=== PATIENT | female | born 1995 | race Caucasian/White ===

== ENCOUNTER 2018-01-23 14:49 | Emergency (ER) | payer MEDICAID, SELFPAY ==
[2018-01-23 14:55] VITALS: BP 127/90; PULSE 145; RESP 18; TEMP 38.1; O2SAT 96
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
[2018-01-23] MEDS: Normal Saline 1,000 ML 1000 ML IV (15:19)
[2018-01-23 15:36] LABS: Absolute Basophil Count 0.03 k/cumm (0.0-0.2); Absolute Eosinophil Count 0.01 k/cumm (0.0-0.7); Absolute Lymphocyte Count 1.58 k/cumm (1.2-3.4); Absolute Monocyte Count 0.49 k/cumm (0.11-0.7); Basophils % 0.5; Eosinophils % 0.2; HCT 34.4 % (36.0-46.0); HGB 11.3 g/dL (12.0-15.5); Lymphocytes % 27.2; Mean Corp. HGB Concentration 32.8 g/dL (32.0-36.0); Mean Corpuscular Hemoglobin 29.9 pg (27.0-33.0); Mean Platelet Volume 8.8 fL (8.0-11.0); Monocytes % 8.4; Neutrophils % 63.7; Platelet Count 306 x1000/uL (130-400); RBC 3.78 m/cumm (4.00-5.20); RBC Distribution Width 13.6 % (11.7-14.6); White Blood Cell Count 5.81 k/cumm (4.4-10.8)
[2018-01-23 15:47] LABS: ALT 19 U/L (12-78); AST 23 U/L (15-37); Albumin 3.3 g/dL (3.4-5.0); Alkaline Phosphatase 62 U/L (46-116); Anion Gap 9.5 mmol/L (3-11); BUN 2 mg/dL (7-18); Bilirubin, Total 0.2 mg/dL (0.2-1.0); CO2 27.5 mmol/L (21.0-32.0); CREATININE 1.05 mg/dL (0.55-1.02); Calcium 7.7 mg/dL (8.5-10.1); Chloride 105 mmol/L (98-107); ETHANOL BLOOD 205.2 mg/dL (<3); Glucose 101 mg/dL (70-100); Potassium 3.4 mmol/L (3.5-5.1); Sodium 142 mmol/L (136-145); Total Protein 6.7 g/dL (6.4-8.2)
[2018-01-23 15:55] LABS: HCG Qual (Serum) Negative
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
[2018-01-23] MEDS: Ketorolac 30 MG/ML VIAL IVP (16:55)
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
== END 2018-01-23 18:35 | disposition home or self-care (01) ==
PROVIDERS: Nurse Practitioner Family; Emergency Provider Physician Assistant; PCP Nurse Practitioner Family
DX: S00.12XA Contusion of left eyelid and periocular area, initial encounter (principal); S06.0X0A Concussion without loss of consciousness, initial encounter; M54.2 Cervicalgia; F10.120 Alcohol abuse with intoxication, uncomplicated; Y04.8XXA Assault by other bodily force, initial encounter
CPT/HCPCS: 36415; 80053; 96361; 96374; 99284; 70450; 70486; 72072; 72125; 80320; 84703; 85025; J1885; L0172

== ENCOUNTER 2018-03-22 15:41 | Emergency (ER) | payer MEDICAID, SELFPAY ==
[2018-03-22 15:53] VITALS: BP 138/70; PULSE 114; RESP 18; TEMP 36.7; O2SAT 99
[2018-03-22 16:18] LABS: Abs Immature Grans 0.02 k/cumm (0.0-0.09); Absolute Eosinophil Count 0.05 k/cumm (0.0-0.7); Absolute Lymphocyte Count 1.71 k/cumm (1.2-3.4); Absolute Monocyte Count 0.82 k/cumm (0.11-0.7); Absolute Neutrophil Count 8.79 k/cumm (1.2-6.7); Basophils % 0.3; Eosinophils % 0.4; HCT 40.9 % (36.0-46.0); HGB 13.6 g/dL (12.0-15.5); Immature Grans % 0.2; Mean Corp. HGB Concentration 33.3 g/dL (32.0-36.0); Mean Corpuscular Hemoglobin 29.2 pg (27.0-33.0); Mean Corpuscular Volume 87.8 fL (80-95); Mean Platelet Volume 9.7 fL (8.0-11.0); Monocytes % 7.2; Neutrophils % 76.9; Platelet Count 477 x1000/uL (130-400); RBC 4.66 m/cumm (4.00-5.20); RBC Distribution Width 13.5 % (11.7-14.6); White Blood Cell Count 11.43 k/cumm (4.4-10.8)
[2018-03-22 16:25] LABS: Absolute Basophil Count 0.03 k/cumm (0.0-0.2)
[2018-03-22 16:33] LABS: ALT 31 U/L (12-78); AST 38 U/L (15-37); Albumin 3.9 g/dL (3.4-5.0); Alkaline Phosphatase 87 U/L (46-116); Anion Gap 13.6 mmol/L (3-11); BUN 4 mg/dL (7-18); Bilirubin, Total 0.4 mg/dL (0.2-1.0); CO2 26.4 mmol/L (21.0-32.0); CREATININE 1.07 mg/dL (0.55-1.02); Calcium 8.9 mg/dL (8.5-10.1); Chloride 100 mmol/L (98-107); Glucose 107 mg/dL (70-100); Lipase 178 U/L (73-393); Magnesium 1.5 mg/dL (1.8-2.4); Potassium 3.3 mmol/L (3.5-5.1); Sodium 140 mmol/L (136-145); Total Protein 8.1 g/dL (6.4-8.2)
[2018-03-22] MEDS: MAGNESIUM SULFATE 1 GM/100 ML BAG 25 GM (17:42)
[2018-03-22 17:47] LABS: Bilirubin Negative (Negative); Blood Negative (Negative); Clarity Clear; Glucose Negative (Negative); Ketones Negative (Negative); Leukocyte Esterase Negative (Negative); Nitrite Negative (Negative); Urobilinogen 0.2 EU/dL (Up TO 0.2); pH 8.5 (5-8)
[2018-03-22 18:12] LABS: Bacteria Negative HPF (Negative); C & S Indicated? No; Casts Negative LPF (Negative); Crystals Negative HPF (Negative); Epithelial Cells Moderate HPF (Negative); Mucus Negative (Negative); Other Cells Negative (Negative); RBC Negative (0-2); WBC 0-2 HPF (0-5)
[2018-03-22 18:42] VITALS: BP 118/70; PULSE 83
[2018-03-22] MEDS: Ondansetron O.D.T. 4 MG TABEF 8 MG (18:58)
[2018-03-22] MEDS: Potassium Chloride 20 MEQ TABCR (18:59)
[2018-03-22] MEDS: Magnesium Oxide 400 MG TAB 800 MG (18:59)
--- NOTE | 2018-03-22 20:43 | DI.RAD_ITS ---
SYMPTOM/DIAGNOSIS: ABD PAIN ABDOMEN AND PELVIC CT: A noncontrast exam was performed. The lung bases are clear. The heart size is normal. The liver, gallbladder, spleen, pancreas, kidneys and adrenals are unremarkable. The appendix appears normal. A dominant follicle is seen on the right ovary. There is a trace amount of free fluid, likely physiologic. No bowel dilatation or inflammatory change is seen. There is a normal quantity of stool. IMPRESSION: Negative CT of the abdomen and pelvis.
[2018-03-22 22:03] VITALS: BP 112/78; PULSE 88; RESP 18; TEMP 36.8; O2SAT 98
--- NOTE | 2018-03-23 13:06 | W.ED.FU ---
Follow Up Plan: Please see paper charting for down time document
== END 2018-03-22 22:05 ==
PROVIDERS: Emergency Provider Nurse Practitioner Family; PCP Pediatrics
DX: R10.31 Right lower quadrant pain (principal); R11.2 Nausea with vomiting, unspecified; E87.6 Hypokalemia; E83.42 Hypomagnesemia
CPT/HCPCS: 36415; 80053; 81025; 83690; 96374; 96375; 99284; 74176; 81003; 81015; 83735; 85025; J3475

== ENCOUNTER 2018-06-02 19:19 | Emergency (ER) | payer MEDICAID, SELFPAY ==
[2018-06-02 19:29] VITALS: BP 123/79; PULSE 103; RESP 18; TEMP 37.1; O2SAT 99
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
[2018-06-02] MEDS: Ondansetron O.D.T. 4 MG TABEF (20:46)
[2018-06-02] MEDS: Sulfameth/Trimeth DS TAB 1 TAB PO (20:46)
== END 2018-06-02 20:53 | disposition home or self-care (01) ==
PROVIDERS: Emergency Provider Emergency Medicine; PCP Family Medicine
DX: L02.211 Cutaneous abscess of abdominal wall (principal)
CPT/HCPCS: 10060

== ENCOUNTER 2018-06-19 11:30 | Emergency (ER) | payer MEDICAID, SELFPAY ==
[2018-06-19 11:40] VITALS: BP 123/81; PULSE 100; RESP 16; TEMP 36.7; O2SAT 98
--- NOTE | 2018-06-19 12:06 | ED.GENADUL_ITS ---
Discharge Plan Disposition Patient Disposition: HOME Condition: Improving Discharge Details Chief Complaint: Abd Prob Clinical Impression: Gastroenteritis Primary Care Provider: Grace Hendricks ED Provider: Travis Quiros Home Meds and New Rx's Prescriptions: Continued methadone [Methadone Intensol] 10 mg/mL Concentrate 20 mg PO DAILY RF: 0 Discharge Instructions Instructions: Gastroenteritis (ED) Additional Instructions: Home to rest today. Your testing was negative. Small, frequent sips of fluids to maintain hydration. Follow-up with regular doctor if not improving in 2 days time Medical Decision Making 23-year-old female presents with 3 days of intermittent episodes of nausea and vomiting with lower abdominal cramping. She questions whether she may be states she has a negative urinalysis in the past with positive serum testing. She arrives with no fever, borderline tachycardia, dehydrated in appearance. Differential diagnosis includes hyperemesis of first trimester , gastroenteritis, dehydration. An IV access established, given fluid bolus and antiemetic. Screening labs obtained and are reassuring without any significant abnormalities and negative test. Following fluids and antiemetic, patient improved. She likely does have a gastroenteritis but is stable for outpatient management. She has pre-standing antiemetic prescribed Lab Data Lab results reviewed: Yes I reviewed the patient's lab results. Laboratory Results - last 24 hr 06/19/18 06/19/18 06/19/18 11:57 12:24 12:24 WBC 7.14 RBC 4.31 Hgb 11.6 L Hct 36.9 MCV 85.6 MCH 26.9 L MCHC 31.4 L RDW 14.3 Plt Count 315 MPV 10.2 Immature Gran % 0.1 Neutrophils % 70.9 Lymphocytes % 19.5 Monocytes % 7.6 Eosinophils % 1.5 Basophils % 0.4 Absolute Neutrophils 5.06 Absolute Lymphocytes 1.39 Absolute Monocytes 0.54 Absolute Eosinophils 0.11 Absolute Basophils 0.03 Sodium 142 Potassium 3.6 Chloride 104 Carbon Dioxide 29.3 Anion Gap 8.7 BUN 3 L Creatinine 1.00 Estimated GFR/1.73 m2 >= 60.00 Glucose 85 Calcium 8.9 Magnesium 1.6 L Total Bilirubin 0.3 AST 18 ALT 19 Alkaline Phosphatase 47 Total Protein 7.5 Albumin 4.0 Serum HCG, Qual Urine Color Yellow Urine Clarity Clear Urine pH 7.0 Ur Specific [place] 1.020 Urine Protein Negative Urine Ketones Negative Urine Blood Negative Urine Nitrite Negative Urine Bilirubin Negative Urine Urobilinogen 0.2 Ur Leukocyte Esterase Negative Urine Glucose Negative 06/19/18 12:24 WBC RBC Hgb Hct MCV MCH MCHC RDW Plt Count MPV Immature Gran % Neutrophils % Lymphocytes % Monocytes % Eosinophils % Basophils % Absolute Neutrophils Absolute Lymphocytes Absolute Monocytes Absolute Eosinophils Absolute Basophils Sodium Potassium Chloride Carbon Dioxide Anion Gap BUN Creatinine Estimated GFR/1.73 m2 Glucose Calcium Magnesium Total Bilirubin AST ALT Alkaline Phosphatase Total Protein Albumin Serum HCG, Qual Negative Urine Color Urine Clarity Urine pH Ur Specific [place] Urine Protein Urine Ketones Urine Blood Urine Nitrite Urine Bilirubin Urine Urobilinogen Ur Leukocyte Esterase Urine Glucose HPI General Mode of arrival: ambulatory . Date/Time Provider Initiated Documentation: 06/19/18 11:49 . Limitations to Documentation: no limitations . Information obtained by: patient . History of Present Illness 23 year old F presents to the emergency department with the chief complaint of Lower abdominal cramping and vomiting over 3 days time. No diarrhea, described as moderate, Quality is described as aching and dull, and is localized to the abdomen. Patient reports no radiation. Patient started experiencing this day(s) and it has been intermittent. No relieving factors improve symptom(s), Eating worsens symptoms . Patient notes loss of appetite and nausea/vomiting; denies diaphoresis and fever/chills. Patient did receive the following treatments prior to arrival, none Related Data Home Medications Medication Instructions Recorded Confirmed methadone [Methadone Intensol] 20 mg PO DAILY 06/19/18 06/19/18 Allergies Allergy/AdvReac Type Severity Reaction Status Date / Time metronidazole [From Flagyl] AdvReac Mild Nausea Unverified 06/02/18 19:32 General Stated Complaint: Abd Prob MACY: 3 Review of Systems Review of Systems 6 systems reviewed and otherwise negative. Patient states last menstrual period approximately 1 month ago [facility] Medical History Anxiety Depression Homeless family Vaginitis Family History Mother Substance abuse Mental disorder Father Alcohol abuse Sister Mental disorder Sister No problems noted. Brother No problems noted. Brother No problems noted. Social History Smoking/Tobacco Use Status: Never Exam Narrative Exam Narrative: GEN: awake, alert, oriented 3. Pleasant, well groomed, interactive. HEAD: Normocephalic, atraumatic ENT: Mucous membranes dry, oropharynx unremarkable, External ear exam unremarkable EYES: PERRL, EOMI NECK: Full ROM, no KELLIE, no menigismus CHEST/RESP: Nontender, clear to auscultation bilateral, no wheeze/rhonchi/rales CARDIOVASCULAR: Borderline tachycardia, no murmur, rub gina. 2+ Rad pulse bilateral ABDOMEN: Soft, nontender, no mass. +Bowel sounds EXT: Full ROM, no edema, no rash Neuro: Grossly normal neurologic exam, conversant, interactive. Psych: Speech fluent, thoughts congruent, affect normal Course Vital Signs Temperature 36.7 C 06/19/18 11:40 Pulse 100 H 06/19/18 11:40 Respiratory Rate 16 06/19/18 11:40 Blood Pressure 123/81 06/19/18 11:40 Pulse Oximetry 98 06/19/18 11:40 Temperature 36.7 C 06/19/18 11:40 Temperature Source Skin 06/19/18 11:40 Pulse 100 H 06/19/18 11:40 Respiratory Rate 16 06/19/18 11:40 Respiratory Effort 06/19/18 11:44 Blood Pressure 123/81 06/19/18 11:40 Blood Pressure Position Sitting 06/19/18 11:40 Pulse Oximetry 98 06/19/18 11:40 Pain Level 4 06/19/18 11:40 Lab/Test Results Lab/Test Results: POC- Test(urine) Negative
[2018-06-19 12:25] LABS: Bilirubin Negative (Negative); Blood Negative (Negative); Clarity Clear; Glucose Negative (Negative); Ketones Negative (Negative); Leukocyte Esterase Negative (Negative); Nitrite Negative (Negative); Urobilinogen 0.2 EU/dL (Up TO 0.2)
[2018-06-19] MEDS: Normal Saline 1,000 ML 1000 ML IV (12:30)
[2018-06-19] MEDS: Normal Saline Flush 10 ML SYR IVP (12:31)
[2018-06-19 12:35] LABS: Abs Immature Grans 0.01 k/cumm (0.0-0.09); Absolute Basophil Count 0.03 k/cumm (0.0-0.2); Absolute Eosinophil Count 0.11 k/cumm (0.0-0.7); Absolute Lymphocyte Count 1.39 k/cumm (1.2-3.4); Absolute Monocyte Count 0.54 k/cumm (0.11-0.7); Absolute Neutrophil Count 5.06 k/cumm (1.2-6.7); Basophils % 0.4; Eosinophils % 1.5; HCT 36.9 % (36.0-46.0); HGB 11.6 g/dL (12.0-15.5); Immature Grans % 0.1; Lymphocytes % 19.5; Mean Corp. HGB Concentration 31.4 g/dL (32.0-36.0); Mean Corpuscular Hemoglobin 26.9 pg (27.0-33.0); Mean Corpuscular Volume 85.6 fL (80-95); Mean Platelet Volume 10.2 fL (8.0-11.0); Monocytes % 7.6; Neutrophils % 70.9; Platelet Count 315 x1000/uL (130-400); RBC 4.31 m/cumm (4.00-5.20); RBC Distribution Width 14.3 % (11.7-14.6); White Blood Cell Count 7.14 k/cumm (4.4-10.8)
[2018-06-19 13:06] LABS: HCG Qual (Serum) Negative
[2018-06-19 13:08] LABS: ALT 19 U/L (12-78); AST 18 U/L (15-37); Alkaline Phosphatase 47 U/L (46-116); Anion Gap 8.7 mmol/L (3-11); BUN 3 mg/dL (7-18); Bilirubin, Total 0.3 mg/dL (0.2-1.0); CO2 29.3 mmol/L (21.0-32.0); Calcium 8.9 mg/dL (8.5-10.1); Chloride 104 mmol/L (98-107); Glucose 85 mg/dL (70-100); Magnesium 1.6 mg/dL (1.8-2.4); Potassium 3.6 mmol/L (3.5-5.1); Sodium 142 mmol/L (136-145); Total Protein 7.5 g/dL (6.4-8.2)
[2018-06-19 14:04] VITALS: BP 116/70; PULSE 82; RESP 15; TEMP 36.7; O2SAT 98
== END 2018-06-19 14:06 | disposition home or self-care (01) ==
PROVIDERS: Emergency Provider Emergency Medicine; PCP Family Medicine
DX: K52.9 Noninfective gastroenteritis and colitis, unspecified (principal)
CPT/HCPCS: 36415; 80053; 81025; 96361; 96365; 99284; 81003; 83735; 84703; 85025; 99283

== ENCOUNTER 2018-10-22 09:17 | Emergency (ER) | payer MEDICAID, SELFPAY ==
[2018-10-22 09:29] VITALS: BP 118/67; PULSE 106; RESP 16; TEMP 36.9; O2SAT 100
[2018-10-22 09:30] LABS: Bilirubin Negative (Negative); Blood Negative (Negative); Clarity Cloudy; Glucose Negative (Negative); Ketones Negative (Negative); Leukocyte Esterase Small (Negative); Nitrite Positive (Negative); Specific Gravity 1.015 (1.005-1.025); Urobilinogen 0.2 EU/dL (Up TO 0.2); pH 7.5 (5-8)
[2018-10-22 09:39] LABS: Bacteria Many HPF (Negative); C & S Indicated? No/Sq. Contamination; Epithelial Cells Many HPF (Negative); WBC >50 HPF (0-5)
--- NOTE | 2018-10-22 10:12 | W.ED.GENAD ---
Discharge Plan Disposition Patient Disposition: HOME Condition: Good Discharge Details Chief Complaint: Urinary Clinical Impression: Urinary tract infection Primary Care Provider: Grace Hendricks ED Provider: Jaime Lagos Home Meds and New Rx's Prescriptions: No Action methadone [Methadone Intensol] 10 mg/mL Concentrate 20 mg PO DAILY RF: 0 Discharge Instructions Additional Instructions: Please take your medication as prescribed. 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 Please return immediately to the emergency department for fever chills increasing pain back pain or other concern. Please follow-up with the substance abuse clinic for consideration of medication assisted therapy for your heroin use. Medical Decision Making 23-year-old female with urinary tract infection no vaginal symptoms no systemic symptoms no CVAT or concern for sending her pyelonephritis. Keflex twice daily for 5 days follow-up with VISUAL MERCHANDISE MANAGER for routine gynecologic care as discussed follow-up with clinic consideration of medication assisted therapy for your heroin abuse. Turn to the emergency department immediately for shortness of breath chest pain fever chills increasing pain vaginal discharge or other concern. HPI 23-year-old female 24-hour dysuria burning frequency and mild suprapubic tenderness. No back pain no fever chills no vaginal discharge no dyspareunia no high risk behavior no history of sexually transmitted disease past medical history of heroin abuse smokes denies IVDU patient working on Suboxone treatment through the local clinic no shortness of breath chest pain nausea vomiting diarrhea weight loss weight gain or other complaints. LMP 3 weeks ago normal. General Date/Time Provider Initiated Documentation: 10/22/18 10:12. Related Data Home Medications Medication Instructions Recorded Confirmed methadone [Methadone Intensol] 20 mg PO DAILY 06/19/18 06/19/18 Allergies Allergy/AdvReac Type Severity Reaction Status Date / Time metronidazole [From Flagyl] AdvReac Mild Nausea Unverified 10/22/18 09:31 General Stated Complaint: Urinary MACY: 4 Review of Systems Review of Systems All systems reviewed & are unremarkable except as noted in HPI and below PFSH Social History Smoking/Tobacco Use Status: Never Drug use: Daily Substance use type: heroin Details: has not had it in 2 days, is withdrawing-starting to feel this. Do you feel safe in your relationship?: Yes Exam Narrative Exam Narrative: Pulse oximetry reviewed by me and is normal [] Constitutional: Pt is in no acute distress. she is well appearing. she oriented to person, place, and time. Eyes: conjunctivae are normal. Pupils are equal, round, and reactive to light. No scleral icterus. extraocular muscles are intact Ears/Nose/Mouth/Throat: mucus membranes are moist. Musculoskeletal: neck is supple. normal range of motion in all extremities. Cardiovascular: Normal rate and rhythm. No lower extremity edema [] Respiratory: effort is normal . pt exhibits no stridor or respiratory distress. [] GastrointestinaI: abdomen soft, +BS, nontender, -rebound, -guarding. Neurological: alert and oriented to person, place, and time. he has normal strength, no tremor. Skin: Skin is warm and dry. he is not diaphoretic. Distal perfusion in tact, warm extremities, cap refill ? 2 seconds. Hem/Lymph/Imm: No cervical LAD, no goiter, no conjunctival pallor Psych: normal mood and affect. behavior is normal Triage and nurse notes reviewed.[] Course Vital Signs Temperature 36.9 C 10/22/18 09:29 Pulse 106 H 10/22/18 09:29 Respiratory Rate 16 10/22/18 09:29 Blood Pressure 118/67 10/22/18 09:29 Pulse Oximetry 100 10/22/18 09:29 Temperature 36.9 C 10/22/18 09:29 Temperature Source Skin 10/22/18 09:29 Pulse 106 H 10/22/18 09:29 Respiratory Rate 16 10/22/18 09:29 Respiratory Effort Non-Labored 10/22/18 09:29 Blood Pressure 118/67 10/22/18 09:29 Blood Pressure Position Sitting 10/22/18 09:29 Pulse Oximetry 100 10/22/18 09:29 Oxygen Delivery Method Room Air 10/22/18 09:29 Oxygen Flow Rate 0 10/22/18 09:29 Pain Level 9 10/22/18 09:32 Lab/Test Results Lab/Test Results: Laboratory Tests Range/Units 10/22/18 09:25 Urine Color (Yellow) Yellow Urine Clarity Cloudy Urine pH (5-8) 7.5 Ur Specific [place] (1.005-1.025) 1.015 Urine Protein (Negative) mg/dL 30 H Urine Ketones (Negative) mg/dL Negative Urine Blood (Negative) Negative Urine Nitrite (Negative) Positive H Urine Bilirubin (Negative) Negative Urine Urobilinogen (Up TO 0.2) EU/dL 0.2 Ur Leukocyte Esterase (Negative) Small H Urine RBC Not Applicable Urine WBC (0-5) HPF >50 Ur Epithelial Cells (Negative) HPF Many Urine Crystals Not Applicable Urine Bacteria (Negative) HPF Many Urine Mucus Not Applicable Ur Culture Indicated? No/sq. contamination Urine Glucose (Negative) mg/dL Negative POC- Test(urine) Negative
--- NOTE | 2018-10-22 10:17 | ED.GENADUL_ITS ---
Discharge Plan Disposition Patient Disposition: HOME Condition: Good Discharge Details Chief Complaint: Urinary Clinical Impression: Urinary tract infection Primary Care Provider: Grace Hendricks ED Provider: Jaime Lagos Home Meds and New Rx's Prescriptions: No Action methadone [Methadone Intensol] 10 mg/mL Concentrate 20 mg PO DAILY RF: 0 Discharge Instructions Additional Instructions: Please take your medication as prescribed. 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 Please return immediately to the emergency department for fever chills increasing pain back pain or other concern. Please follow-up with the substance abuse clinic for consideration of medication assisted therapy for your heroin use. Medical Decision Making 23-year-old female with urinary tract infection no vaginal symptoms no systemic symptoms no CVAT or concern for sending her pyelonephritis. Keflex twice daily for 5 days follow-up with FINGERPRINT TECHNICIAN for routine gynecologic care as discussed follow- up with clinic consideration of medication assisted therapy for your heroin abuse. Turn to the emergency department immediately for shortness of breath chest pain fever chills increasing pain vaginal discharge or other concern. HPI 23-year-old female 24-hour dysuria burning frequency and mild suprapubic tenderness. No back pain no fever chills no vaginal discharge no dyspareunia no high risk behavior no history of sexually transmitted disease past medical his tory of heroin abuse smokes denies IVDU patient working on Suboxone treatment through the local clinic no shortness of breath chest pain nausea vomiting diarrhea weight loss weight gain or other complaints. LMP 3 weeks ago normal. General Date/Time Provider Initiated Documentation: 10/22/18 10:12 . Related Data Home Medications Medication Instructions Recorded Confirmed methadone [Methadone Intensol] 20 mg PO DAILY 06/19/18 06/19/18 Allergies Allergy/AdvReac Type Severity Reaction Status Date / Time metronidazole [From Flagyl] AdvReac Mild Nausea Unverified 10/22/18 09:31 General Stated Complaint: Urinary MACY: 4 Review of Systems Review of Systems All systems reviewed & are unremarkable except as noted in HPI and below PFSH Social History Smoking/Tobacco Use Status: Never Drug use: Daily Substance use type: heroin Details: has not had it in 2 days, is withdrawing-starting to feel this. Do you feel safe in your relationship?: Yes Exam Narrative Exam Narrative: Pulse oximetry reviewed by me and is normal [] Constitutional: Pt is in no acute distress. she is well appearing. she oriented to person, place, and time. Eyes: conjunctivae are normal. Pupils are equal, round, and reactive to light. No scleral icterus. extraocular muscles are intact Ears/Nose/Mouth/Throat: mucus membranes are moist. Musculoskeletal: neck is supple. normal range of motion in all extremities. Cardiovascular: Normal rate and rhythm. No lower extremity edema [] Respiratory: effort is normal . pt exhibits no stridor or respiratory distress. [] GastrointestinaI: abdomen soft, +BS, nontender, -rebound, -guarding. Neurological: alert and oriented to person, place, and time. he has normal strength, no tremor. Skin: Skin is warm and dry. he is not diaphoretic. Distal perfusion in tact, warm extremities, cap refill ? 2 seconds. Hem/Lymph/Imm: No cervical LAD, no goiter, no conjunctival pallor Psych: normal mood and affect. behavior is normal Triage and nurse notes reviewed.[] Course Vital Signs Temperature 36.9 C 10/22/18 09:29 Pulse 106 H 10/22/18 09:29 Respiratory Rate 16 10/22/18 09:29 Blood Pressure 118/67 10/22/18 09:29 Pulse Oximetry 100 10/22/18 09:29 Temperature 36.9 C 10/22/18 09:29 Temperature Source Skin 10/22/18 09:29 Pulse 106 H 10/22/18 09:29 Respiratory Rate 16 10/22/18 09:29 Respiratory Effort Non-Labored 10/22/18 09:29 Blood Pressure 118/67 10/22/18 09:29 Blood Pressure Position Sitting 10/22/18 09:29 Pulse Oximetry 100 10/22/18 09:29 Oxygen Delivery Method Room Air 10/22/18 09:29 Oxygen Flow Rate 0 10/22/18 09:29 Pain Level 9 10/22/18 09:32 Lab/Test Results Lab/Test Results: Laboratory Tests Range/Units 10/22/18 09:25 Urine Color (Yellow) Yellow Urine Clarity Cloudy Urine pH (5-8) 7.5 Ur Specific [place] (1.005-1.025) 1.015 Urine Protein (Negative) mg/dL 30 H Urine Ketones (Negative) mg/dL Negative Urine Blood (Negative) Negative Urine Nitrite (Negative) Positive H Urine Bilirubin (Negative) Negative Urine Urobilinogen (Up TO 0.2) EU/dL 0.2 Ur Leukocyte Esterase (Negative) Small H Urine RBC Not Applicable Urine WBC (0-5) HPF >50 Ur Epithelial Cells (Negative) HPF Many Urine Crystals Not Applicable Urine Bacteria (Negative) HPF Many Urine Mucus Not Applicable Ur Culture Indicated? No/sq. contamination Urine Glucose (Negative) mg/dL Negative POC- Test(urine) Negative
== END 2018-10-22 10:23 | disposition home or self-care (01) ==
PROVIDERS: Emergency Provider Emergency Medicine; PCP Family Medicine
DX: N39.0 Urinary tract infection, site not specified (principal); F11.10 Opioid abuse, uncomplicated
CPT/HCPCS: 81025; 99283; 81003; 81015

== ENCOUNTER 2019-04-05 07:17 | Emergency (ER) | payer MEDICAID, SELFPAY ==
[2019-04-05 07:19] VITALS: BP 140/94; PULSE 115; RESP 16; TEMP 36.6; O2SAT 100
--- NOTE | 2019-04-05 07:49 | DI.RAD_ITS ---
EXAM: XR ANKLE LT COMPLETE CLINICAL HISTORY: left ankle pain and swelling TECHNIQUE: COMPARISON: No exams were available for comparison FINDINGS: Three views were obtained. The ankle mortise is well maintained. No evidence of fracture. IMPRESSION:
--- NOTE | 2019-04-05 07:51 | ED.GENADUL_ITS ---
Discharge Plan Disposition Patient Disposition: HOME Condition: Stable Discharge Details Chief Complaint: Orthopedic Clinical Impression: Ankle pain, left Primary Care Provider: Grace Hendricks ED Provider: Po Fisher Home Meds and New Rx's Prescriptions: Continued methadone [Methadone Intensol] 10 mg/mL Concentrate 20 mg PO DAILY RF: 0 cephalexin 500 mg tablet 500 mg PO BID Qty: 14 RF: 0 Discharge Instructions Instructions: Leg Pain (ED) Additional Instructions: try to stop injecting as this can lead to bad infections if your joint becomes red and warm to touch or you have fevers return to the emergency department Medical Decision Making 23 yo female who denies chronic medical problems comes in with chief comlaint of left ankle pain and swelling. Denies any fevers or rashes and denies any known trauma .She has swelling of the joint with no erythema or warmth of the joint and has full rom though with pain. no findings to suggest septic joint. She does use heroin and used this morning, has no injected near the joint. Has no murmurs or other stigmata of endocarditis. Suspect sprain but will xray to eval for fracture. xray negative on my read. Still has no redness or warmth to touch so doubt septic joint but I did offer to try and aspirate the joint but pt declined which I feel is reasonable given clinical suspicion is low for septic joint. Will d/c and advised f/u with pcp and return precautions given Differential Diagnosis Differential Diagnosis: sprain, strain, fracture Imaging Data Radiologic Study: Attestation: I personally reviewed and interpreted this imaging study as follows: Imaging: X-Ray My impression: no acute findings HPI General Mode of arrival: ambulatory . Date/Time Provider Initiated Documentation: 04/05/19 07:45 . Limitations to Documentation: no limitations . Information obtained by: patient . History of Present Illness 23 year old F presents to the emergency department with the chief complaint of left ankle pain, described as moderate, Quality is described as aching, Patient started experiencing this day(s) (3) and it has been constant. No relieving factors improve symptom(s), Movement worsens symptoms . Patient did receive the following treatments prior to arrival, none Related Data Home Medications Medication Instructions Recorded Confirmed methadone [Methadone Intensol] 20 mg PO DAILY 06/19/18 06/19/18 cephalexin 500 mg PO BID #14 tab 05/13/19 Previous Rx's Medication Instructions Recorded cephalexin 500 mg PO BID #14 tab 10/22/18 Allergies Allergy/AdvReac Type Severity Reaction Status Date / Time metronidazole [From Flagyl] AdvReac Mild Nausea Unverified 10/22/18 09:31 General Stated Complaint: Orthopedic MACY: 4 Review of Systems All systems reviewed & are unremarkable except as noted in HPI and below Constitutional Constitutional: Denies chills, Denies fever(s) and Denies weakness ENT Ears, Nose, Mouth, and Throat: Denies change in voice Cardiovascular Cardiovascular: Denies chest pain and Denies dyspnea Respiratory Respiratory: Denies cough and Denies dyspnea Gastrointestinal Gastrointestinal: Denies abdominal pain, Denies nausea and Denies vomiting Integumentary/Breasts Skin/Breast: Denies rash Neurologic Neurologic: Denies weakness [facility] Social History Smoking/Tobacco Use Status: Never Alcohol Intake: never Drug use: Daily Substance use type: heroin Details: has not had it in 2 days, is withdrawing-starting to feel this. Do you feel safe at home: Yes Do you feel safe in your relationship?: Yes Exam Const General: no acute distress Orientation: alert HENMT Head: normal to inspection Ears: external ears normal General nose exam: external nose normal Mouth: moist mucous membranes Eyes General: appearance normal, both eyes and all related structures Neck Neck: normal visual inspection Resp Effort & Inspection: normal respiratory effort and able to speak in complete sentences Cardio Rate: regular rate Skin General skin exam: elasticity normal Neuro General: alert and oriented x3 Extrem General: normal to inspection Psych Mental Status: mental status grossly normal Course Vital Signs Vital signs: Vital Signs Temperature 36.6 C 04/05/19 07:19 Pulse 115 H 04/05/19 07:19 Respiratory Rate 16 04/05/19 07:19 Blood Pressure 140/94 H 04/05/19 07:19 Pulse Oximetry 100 04/05/19 07:19 Temperature 36.6 C 04/05/19 07:19 Temperature Source Temporal Artery Scan 04/05/19 07:19 Pulse 115 H 04/05/19 07:19 Respiratory Rate 16 04/05/19 07:19 Respiratory Effort Non-Labored 04/05/19 07:19 Blood Pressure 140/94 H 04/05/19 07:19 Blood Pressure Position Supine 04/05/19 07:19 Pulse Oximetry 100 04/05/19 07:19 Oxygen Delivery Method Room Air 04/05/19 07:19 Oxygen Flow Rate 0 04/05/19 07:19 Pain Level 8 04/05/19 07:19
== END 2019-04-05 08:31 | disposition home or self-care (01) ==
PROVIDERS: Emergency Provider Emergency Medicine; PCP Family Medicine
DX: M25.572 Pain in left ankle and joints of left foot (principal)
CPT/HCPCS: 99283; 73610; 99282

== ENCOUNTER 2020-01-10 13:49 | Outpatient (REF) | payer MEDICAID, SELFPAY ==
--- NOTE | 2020-01-10 13:15 | PAPFT_PTH ---
PATIENT: Karin Dixon LOC: [facility] U#:[id number] AGE/SX: 24/F ROOM: RE01/10/[address]: JONO Bush : 1995 BED: DIS: 01/10/2020 SPEC #: [id number] RECD: 01/10/20 18:21 STATUS: SONIA REJesu #: [id number] QUIRINO: 01/10/20 13:[address]: Alicia Vilchis DEPT: [facility] Cytology RECD BY: Lizzette Oliva ENTERED: 01/10/20 18:21 SP TYPE: PAPFT OTHR DR: Grace Hendricks Tissues: 1 - CX/ENDOCX FOR PAP SMEARS Procedures: PAP THIN PREP/U[facility] Screening Comments: [id number]
[2020-01-13 14:04] LABS: Chlamydia Result Negative (Negative); GC Result Negative (Negative)
== END 2020-01-10 14:09 ==
LOC: LBN 13:49
PROVIDERS: PCP Family Medicine; Visit Provider Nurse Practitioner Family
DX: Z11.3 Encounter for screening for infections with a predominantly sexual mode of transmission (principal)
CPT/HCPCS: 87491; 87591; 88142

== ENCOUNTER 2024-07-06 17:37 | Emergency (ER) | payer MEDICAID, SELFPAY ==
[2024-07-06 17:39] VITALS: BP 132/80; PULSE 112; RESP 18; TEMP 36.9; O2SAT 99
--- NOTE | 2024-07-06 18:14 | ED.GENADUL_ITS ---
Discharge Plan Disposition Patient Disposition: Home Discharge Details Clinical Impression: Dental infection, UTI (urinary tract infection) Primary Care Provider: Grace Hendricks ED Provider: Elva Arguelles Home Meds and New Rx's Prescriptions: New amoxicillin-pot clavulanate 875-125 mg tablet 1 tab PO BID Qty: 10 0RF nitrofurantoin macrocrystal 100 mg capsule 100 mg PO BID Qty: 10 0RF Rx Instructions: must administer with a meal/food No Action gabapentin 300 mg capsule 300 mg PO TID Patient Comments: TAKE 1 CAPSULE BY MOUTH THREE TIMES DAILY Discharge Instructions Additional Instructions: Please call your dentist first thing Monday to schedule a follow-up appointment for definitive management. You are being treated with Augmentin, an antibiotic to help treat the infection in your mouth. Please take the full course as prescribed. Continue to use salt water rinses, Orajel, clothes, heat/ice packs, Tylenol 650 mg every 6 hours and ibuprofen 600 mg every 8 hours. As this may cause antibiotic associated diarrhea, I recommend using Activia yogurt or grzs-prz-[id number] probiotics. You are being treated for urinary tract infection. Please take the full course of nitrofurantoin as prescribed. Stay well-hydrated, drinking plenty of fluids throughout the day. Swabs have been sent for culture to evaluate for gonorrhea, chlamydia, and other vaginal pathogens. We will call you with those results. I recommend that you follow-up with women's wellness. Return to emergency care if develop new fevers, vision changes, difficulty opening your mouth, significantly worsening swelling in your face, no abdominal pains, inability to hold down your antibiotics, or if you are very worried and need to be rechecked again immediately HPI General Date/Time Provider Initiated Documentation: 07/06/24 17:44 . HPI Narrative: Karin is a 29year old female who presents to the emergency department today for evaluation of dental abscess and UTI symptoms. She reports that she used a tooth whitening product a couple of weeks ago which softened her teeth and caused three teeth to break. She was evaluated by dental, and is awaiting a follow-up appointment. A couple of days ago she developed swelling to her right lower jaw accompanied by pain with palpation of her teeth and gumline. She denies fever/chills, headaches, vision changes, trismus, swelling under tongue, voice change, difficulty breathing, nausea/vomiting,. She also reports she has had UTI symptoms for a week and a half, with dark and foul-smelling urine, lower abdominal discomfort when urinating and after urination. Denies change in baseline vaginal discharge, however she is concerned that her boyfriend may be cheating on her and would like to be checked for gonorrhea and chlamydia. Past medical history is significant for opioid use, smoking crack, cocaine use. She has been on methadone in the past, no IV drug use in the last 4 months. Denies history of antibiotic resistant infections. Denies other significant past medical history. Physical exam overall reassuring. Patient is alert and oriented, no acute distress. Tenderness with palpation along gumline and teeth to right lower jaw. Extensive dental decay, no obvious abscess or drainage noted. Mild swelling noted along gumline. Moist mucous membranes. No trismus, swelling under tongue, voice change, submandibular or cervical lymphadenopathy. Full painless range of motion neck. PERRL, EOMs intact. Easy work of breathing, able to s peak in complete sentences. Abdomen is soft, mild tenderness to palpation along suprapubic area, nondistended, no rigidity or guarding. No CVA tenderness. History and presentation consistent with dental caries and uncomplicated UTI. No red flags concerning for extension of dental infection into deep space requiring CT imaging or blood work/IV antibiotics at this time. No red flags concerning for pyelonephritis or acute abdomen. Patient declines LABOR STANDARDS DIRECTOR exam at this time; Patient perform self swabs for GC and vaginal pathogen's. As she does not have any vaginal symptoms at this time, she declines presumptive treatment for gonorrhea and chlamydia. I independently interpreted the following tests: UA notable for positive nitrates. While in the emergency department, Karin received first dose of antibiotics, will treat with nitrofurantoin and Augmentin. Patient does have history of resistance to ampicillin, so monotherapy with penicillin not recommended. Reviewed discharge instructions with patient, including symptomatic management and red flags indicating need for return to emergency care. She reports she will follow-up with dental and women's wellness for gynecologic exam. We will call with swab results. Educated patient on use of probiotics to avoid antibiotic associated diarrhea. Related Data Home Medications ?Medication ?Instructions ?Recorded ?Confirmed amoxicillin 875 mg-potassium 1 tab PO BID #10 tabs 07/06/24 clavulanate 125 mg tablet gabapentin 300 mg capsule 300 mg PO TID 07/06/24 07/06/24 nitrofurantoin macrocrystal 100 mg 100 mg PO BID #10 caps 07/06/24 capsule Previous Rx's ?Medication ?Instructions ?Recorded amoxicillin 875 mg-potassium 1 tab PO BID #10 tabs 07/06/24 clavulanate 125 mg tablet nitrofurantoin macrocrystal 100 mg 100 mg PO BID #10 caps 07/06/24 capsule Allergies Allergy/AdvReac Type Severity Reaction Status Date / Time metronidazole (From Flagyl) AdvReac Mild Nausea Unverified 07/06/24 17:43 General Stated Complaint: DentalOral MACY: 3 Review of Systems Narrative: see HPI Exam Const General: cooperative, healthy appearing, no acute distress, well developed and well groomed Nutritional Appearance: average body habitus Orientation: alert and oriented x3 HENMT Head: normal to inspection Ears: hearing grossly normal bilaterally General nose exam: external nose normal Mouth: tongue normal, moist mucous membranes, no muffled voice, no trismus and No restricted motion Teeth and gingiva: abnormal tooth or associated gingiva (tenderness with palpation of teeth and gumline at R lower jaw), caries and poor dentition Throat: posterior oropharynx normal Other: mild swelling to R lower jaw along gumline Eyes General: appearance normal, both eyes and all related structures Periorbital: periorbital findings normal Pupils: PERRL EOM: EOM intact bilaterally Resp Effort & Inspection: normal respiratory effort and able to speak in complete sentences GI Inspection: normal to inspection, no abdominal wall ecchymosis and non-distended Palpation: soft, not rigid and tender suprapubicly General: deferred Back/Spine/Pelvis Back: no CVA tenderness Skin General skin exam: no rashes or lesions noted Neuro General: patient alert, patient oriented x3, gait normal, tone normal, moves all extremities and no focal motor deficits Cranial Nerves: EOM intact bilaterally, no nystagmus and facial strength normal Cognition: normal cognition Speech: speech normal Course Vital Signs Vital signs: Vital Signs Temperature 36.9 C 07/06/24 17:39 Pulse 112 H 07/06/24 17:39 Respiratory Rate 18 07/06/24 17:39 Blood Pressure 132/80 07/06/24 17:39 Pulse Oximetry 99 07/06/24 17:39 Temperature 36.9 C 07/06/24 17:39 Temperature Source Oral 07/06/24 17:39 Pulse 112 H 07/06/24 17:39 Respiratory Rate 18 07/06/24 17:39 Blood Pressure 132/80 07/06/24 17:39 Blood Pressure Position Sitting 07/06/24 17:39 Pulse Oximetry 99 07/06/24 17:39 Oxygen Delivery Method Room Air 07/06/24 17:39 Oxygen Flow Rate 0 07/06/24 17:39 Pain Level 6 07/06/24 17:39 Lab/Test Results Lab/Test Results: POC- Test(urine) Negative Medical Decision Making Quality:SDOH Health Related Social Needs: No Data to Display PFSH All Active Problems (Updated 07/06/24 @ 18:21 by Elva Melendez) UTI (urinary tract infection) (Acute) Dental infection (Acute) Irregular menses (Acute 06/25/15) Medical History (Updated 07/06/24 @ 18:21 by Elva Melendez) Vaginitis 2016 Trich. Depression Rx with Wellbutrin and Hydroxzine TID PRN. Anxiety Homeless family after of renetta was living with her mother and in hotel with BF. Does not have custody of daughter secondary to homeless issues. 04/25/17 is moving in with and his mother. Family History Mother Substance abuse recovered Mental disorder Father Alcohol abuse Sister Mental disorder Sister No problems noted. Brother No problems noted. Brother No problems noted. Social History Smoking/Tobacco Use Status: Never Smoking risk assessment performed?: Yes Alcohol Intake: never Drug use: Daily Substance use type: crack/cocaine and heroin Do you feel safe at home: Yes Do you feel safe in your relationship?: Yes
[2024-07-06 18:36] LABS: Bilirubin Negative (Negative); Blood Negative (Negative); Clarity Clear (Clear); Glucose Negative (Negative); Ketones Negative (Negative); Leukocyte Esterase Negative (Negative); Nitrite Positive (Negative); Specific Gravity >= 1.030 (1.005-1.025); Urobilinogen 0.2 mg/dL (Up to 0.2)
[2024-07-06 18:40] LABS: Bacteria Moderate HPF (Negative); Crystals Rare Calcium Oxalate HPF (Negative); Epithelial Cells Few HPF (Negative); RBC 0-2 HPF (0-2)
[2024-07-06 18:41] LABS: C & S Indicated? Yes; Casts Negative LPF (Negative); Mucus Negative (Negative)
[2024-07-06 18:44] VITALS: BP 112/78; PULSE 75; RESP 15; TEMP 37; O2SAT 98
[2024-07-06] MEDS: Amox. 875/Clav. 125, 2 TABS/BTL 1 TAB PO (18:46)
--- OUTSIDE RECORDS SUMMARY | 2024-07-06 18:46 | XMS_ITS | Encounter Summary ---
Author Organization [facility] Address [address] [place] [address] Care Team Providers Care Refrigerating Engineer Head Name Role Phone Trevon Boyd MD Primary Care Provider Eliza Rain MD Unavailable [phone] Dona Casper [facility] Unavailable Reason for Visit * Reason Onset Date Comments No Show 01/03/2024 Encounter Details Date Type Department Care Team (Late st Contact Info) Description 01/03/2024 Telephone [facility] [place] Family Medicine [address], [facility] [address] [place] [address] Trevon Boyd MD [address] [facility] [address] [place] [address] No Show Social History Tobacco Use Types Packs/Day Years Used Date Smoking Tobacco: Never Smokeless Tobacco: Never Alcohol Use Standard Drinks/Week Comments Yes 42 (1 standard drink = 0.6 oz pure alcohol) As of 05/2023 about 1 bottle-25 ounces of vodka a day-equates to about 6 servings a day Hunger Vital Sign Answer Date Recorded Within the past 12 months, y ou worried that your food would run out before you got the money to buy more. Sometimes true Within the past 12 months, t he food you bought just didn't last and you didn't have money to get more. Sometimes true PRAPARE - Transportation Answer Date Re corded In the past 12 months, has l ack of transportation kept you from medical appointments or from getting medications? No 12/2023 In the past 12 months, has l ack of transportation kept you from meetings, work, or from getting things needed for daily living? No 2023 Housing Stability Vital Sign Answer Deyvi e Recorded In the last 12 months, was t here a time when you were not able to pay the mortgage or rent on time? No 2023 Number of Places Lived in the Last Year Not on f ile 2023 In the last 12 months, was t here a time when you did not have a steady place to sleep or slept in a correction (including now)? No 2023 [place] Depression Scale Answer Date Recorded [place] Depression Scale Total 9 05/16/2022 The thought of harming myself has occurred to me . 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 Answer Date of Assessment Author No 06/17/2023 19:00 Andrea Serra RN * Are you blind or do you have serious difficulty seeing, even when wearing glasses? Answer Date of Assessment Author No 06/17/2023 19:00 Andrea Serra RN * Do you have serious difficulty walking or climbing stairs? (5 years old or older) Answer Date of Assessment Author No 06/17/2023 19:00 Andrea Serra, RN * Do you have difficulty dressing or bathing? (5 years old or older) Answer Date of Assessment Author No 06/17/2023 19:00 Andrea Serra, RN * Because of a physical, mental, or emotional condition, do you have difficulty doing errands alone such as visiting a doctor's office or shopping? (15 years old or older) Answer Date of Assessment Author No 06/17/2023 19:00 Andrea Serra, RN documented as of this encounter Mental Status * Because of a physical, mental, or emotional condition, do you have serious difficulty concentrating, remembering, or making decisions? (5 years old or older) Answer Entry Date Author No 06/17/2023 19:00 Andrea Serra, RN documented in this encounter Miscellaneous Notes * Telephone Encounter - Beverly Rogers - 01/03/2024 1434 EDT Pt missed appt 01/02, no show letter mailed. documented in this encounter Plan of Treatment Not on file documented as of this encounter Visit Diagnoses Not on filedocumented in this encounter Care Teams Refrigerating Engineer Head Relationship Specialty Start Date End Date Trevon Boyd MD [address] [place] [address] [address] [place] [address] PCP - General Family Medicine - Primary Care 05/24/23 Eliza Rain MD [address] [place] [address] [address] [place] [address] Infectious Disease 05/24/23 Dona Casper NP CNM [address] [place] [address], [address] [place] [address] Critical Care Nurse Specialist Midwifery 05/24/23 documented as of this encounter
--- OUTSIDE RECORDS SUMMARY | 2024-07-06 18:46 | XMS_ITS | Encounter Summary ---
Author Organization [facility] Address [address] [place] [address] Care Team Providers Care Resource Teacher Name Role Phone Trevon Boyd MD Primary Care Provider Eliza Rain MD Unavailable [phone] Dona Casper [facility] Unavailable Reason for Visit * Reason Onset Date Comments No Show 01/01/2024 Encounter Details Date Type Department Care Team (Late st Contact Info) Description 01/01/2024 Telephone [facility] [place] [address], [facility] [address] [place] [address] Trevon Boyd MD [address] [facility] [address] [place] [address] No Show Social History Tobacco [...] place to sleep or slept in a alf (including now)? No 2023 [place] Depression Scale Answer Date Recorded [place] Depression Scale Total 9 05/16/2022 The thought [...] of Assessment Author No 06/17/2023 19:00 Andrea Serar, RN * Because of a physical, mental, [...] encounter Miscellaneous Notes * Telephone Encounter - Chavez Jerel - 01/01/2024 1016 EDT Called and LVM to call the office back to reschedule no showed appt from Monday. Mailing no show letter as well. documented in this encounter Plan of Treatment Not on file documented as of this encounter Visit Diagnoses Not on filedocumented in this encounter Care Teams Resource Teacher Relationship Specialty Start Date End Date Trevon Boyd MD [address] [place] [address] [address] [place] [address] PCP - General Family Medicine - Primary Care 05/24/23 Eliza Rain MD [address] [place] [address] [address] [place] [id number] Infectious Disease 05/24/23 Dona Casper NP CNM [address] [place] [address] [address] [place] [address] Linter Saw Sharpener Midwifery 05/24/23 documented as of this encounter
--- OUTSIDE RECORDS SUMMARY | 2024-07-06 18:46 | XMS_ITS | Encounter Summary ---
Author Organization [facility] Address [address] [place] [address] Care Team Providers Care Community Development Officer Name Role Phone Trevon Boyd MD Primary Care Provider Eliza Rain MD Unavailable [phone] Dona Casper [facility] Unavailable Reason for Visit * Reason Comments Foot Injury Patient to Emergency room for left foot infection from a wound approx 2 months. Patient states her son accidentally scrapped the 2 month old scab off and patient states swelling, drainage and pain since then. Patient denies fevers or wound complications in the past 2 months. Encounter Details Date Type Department Care Team (Late st Contact Info) Description 01/19/2024 1:04 EDT - 01/19/2024 2:[address] [facility] Emergency Department [address] [place] [id number] Magdi Amin MD [address] [place] [address] Cellulitis of left foot (Primary Dx) Discharge Disposition: Home or Self Care Social History Tobacco Use Types Packs/Day Years [...] place to sleep or slept in a detention (including now)? No 2023 Wellman Depression Scale Answer Date Recorded Wellman Depression Scale Total 9 05/16/2022 The thought [...] on file documented as of this encounter Last Filed Vital Signs Vital Sign Reading Time Taken Comments Blood Pressure 153/96 01/19/2024106 EDT Pulse 120 01/19/2024106 EDT Temperature 36.8 ??C (98.3 ??F) 01/19/2024106 EDT Respiratory Rate 16 01/19/2024106 EDT Oxygen Saturation 96% 01/19/2024106 EDT Inhaled Oxygen Concentration - - Weight 59.9 kg (132 lb) 01/19/2024106 EDT Height 172.7 cm (5' 8) 01/19/2024106 EDT Body Mass Index 20.07 01/19/2024106 EDT documented in this encounter Functional Status * Are you [...] Andrea Serra RN * Do you have difficulty dressing or bathing? (5 years old or older) Answer Date of Assessment Author No 06/17/2023 19:00 Andrea Serra RN * Because of a physical, mental, or emotional condition, do you have difficulty doing errands alone such as visiting a doctor's office or shopping? (15 years old or older) Answer Date of Assessment Author No 06/17/2023 19:00 Andrea Serra RN documented as of this encounter Mental Status * Because of a physical, mental, or emotional condition, do you have serious difficulty concentrating, remembering, or making decisions? (5 years old or older) Answer Entry Date Author No 06/17/2023 19:00 Andrea Serra RN documented in this encounter Discharge Instructions * Discharge Instructions* Magdi Amin MD - 01/19/2024 2:27 EDT Verbal discharge instructions provided to the patient she was eager to leave and did not want to wait for written instructions. documented in this encounter Medications at Time of Discharge gabapentin (NEURONTIN) 300 mg capsuleIndication s:Alcohol use disorder Take 1 Capsule by mouth 3 times daily. 90 Capsule 3 12/06/2023 methadone (DOLOPHINE) 10 mg tablet Take 13.5 Tablets by mouth daily. pantoprazole (PROTONIX) 40 mg tablet Take 1 Tablet by mouth every 12 hours. Take twice per day for 1 week then once per day for 3 weeks then stop, resume once per day as needed for acid refulx 60 Tablet 1 06/21/2023 documented as of this encounter Ordered Prescriptions Prescription Sig Dispense Quantity Refills Last Filled Start Date End Date cephalexin (KEFLEX) 500 mg capsule Take 1 Capsule by mouth 4 times daily for 7 days. 28 Capsule 01/19/2024 4 sulfamethoxazole-t rimethoprim (BACTRIM/CO-TRIMOX AZOLE DS) 800-160 mg per tablet Take 1 Tablet by mouth every 12 hours for 7 days. 14 Tablet 01/19/2024 4 documented in this encounter Discharge Disposition Disposition Code Departure Means Destination Comment s Home or Self Snf To home, documented in this encounter ED Notes * Oly Beck RN - 01/19/2024 0213 EDT Patient's foot soaked with good effect, foot marked, picture taken and wound bandaged with telfa, medipore and bacitracin. Patient tolerated well and extra supplies bagged and given to patient to take home with. * Magdi Amin MD - 01/19/2024 0101 EDT Images from the original note were not included. Emergency Department Visit Medical Decision Making 28-year-old female with history of IVDA coming in with a shallow ulcer on the top of her left foot with some mild surrounding erythema consistent with cellulitis. This was a scabbed wound from a prior injection site. She does not believe that there is any foreign body in the wound. The wound was thoroughly irrigated out after which I do not appreciate any foreign body in the wound. Patient reports erythema only began yesterday. No evidence of a deeper infection such as osteomyelitis. No systemic symptoms. No clinical evidence of endocarditis or bacteremia. She denies any prior history of MRSAhowever plan to cover her with both Bactrim and cephalexin. She was given starter packs and prescriptions were sent to her pharmacy. She advised to return should she develop any signs of a more serious systemic illness or if the redness started spreading up her leg. Medical Decision Making Problems Addressed: Cellulitis of left foot: complicated acute illness or injury Risk Prescription drug management. Final diagnoses: Cellulitis of left foot Disposition: Discharged Chief complaint: Right foot wound HPI Karin Dixon is a 28 y.o. female with history of hepatitis C, polysubstance use, and IVDA who presents to the ED for evaluation of a wound on the top of her left foot. Patient states that she had a small scabbed wound on the foot from a prior IV drug use. 2 days ago her son tripped over her foot and dislodge the scab. In the last 24 hours it has become a little more swollen and a little bit morered with scant discharge. No fevers or chills. No nausea or vomiting. She does not otherwise feel ill. Patient does tell me that she does continue to use large amounts of IV opiates. She recently reestablished care with [facility]. They have started her on methadone taper. She is currently on only 70 mg a day. She states this is insufficient to take away her cravings. She previously been on more than 135. She continues to work with her substance abuse practitioner to alleviate the cravings so that she can cut back on her illicit use. She is very clear that she understands the risks of illicit drug use and has been taking precautions. She would very much like to stop using altogether. History was provided by: Patient Records reviewed include: Discharge summary from June when she was admitted with alcoholic pancreatitis Patient's pertinent PMH, FH, SH were reviewed and edited as necessary. Nursing notes reviewed. A medical screening exam was performed. Physical Exam BP (!) 153/96 Pulse (!) 120 Temp 36.8 ??C (98.3 ??F) (Oral) Resp 16 Ht 172.7 cm (68) Wt 59.9 kg (132 lb) SpO2 96% BMI 20.07 kg/m?? Physical Exam Const: Patient resting comfortably in no acute distress Head: Atraumatic. Normocephalic. Eyes: No injection. No discharge. Neck: Normal range of motion. Pulm: No respiratory distress CV: Regular rhythm and rate. There is no murmur rub or gallop. Musculoskeletal: No deformity. Moving all 4 extremities. Examination of the left foot reveals a small superficial irregularly shaped ulceration with a smallamount of fibrin at the bed. There is surrounding erythema with a streak up towards the ankle. Restof the foot is neurovascularly intact. There is no significant bony tenderness. Picture below Skin: I do not see any other open wounds or signs of embolic disease Neuro: Alert. Speech is clear. Procedures Procedures documented in this encounter Plan of Treatment Not on file documented as of this encounter Visit Diagnoses Diagnosis Cellulitis of left foot- Primary Cellulitis and abscess of foot, except toes documented in this encounter Administered Medications Inactive Administered Medications - up to 3 most recent administrations Medication Order MAR Action Action Date Dose Rate Site Cephalexin 250 mg Cap STARTER PACK - 8 cap 1 Package, oral, Once (Without Time Specified), 1 dose, Starting on Mon01/19/24 at 0136, Until Mon01/19/24 at 0203, STAT Given 01/19/2024 2:03 EDT 1 Package Co-Trimoxazole DS Tab STARTER PACK 1 Package, oral, Once (Without Time Specified), 1 dose, Starting on Mon01/19/24 at 0136, Until Mon01/19/24 at 0203, STAT Given 01/19/2024 2:03 EDT 1 Package documented in this encounter Active and Recently Administered Medications Times are shown in EDT. Scheduled Medication Order 01/17/2024 01/18/2024 01/19/2024 Cephalexin 250 mg Cap STARTER PACK - 8 cap (COMPLETED) 1 Package, oral, Once (Without Time Specified), 1 dose, Starting on Mon01/19/24 at 0136, Until Mon01/19/24 at 0203, STAT 0203 (Given - Provid er: Oly Beck RN) Co-Trimoxazole DS Tab STARTER PACK (COMPLETED) 1 Package, oral, Once (Without Time Specified), 1 dose, Starting on Mon01/19/24 at 0136, Until Mon01/19/24 at 0203, STAT 0203 (Given - Provid er: Oly Beck RN) documented in this encounter Care Teams Community Development Officer Relationship Specialty Start Date End Date Trevon Boyd MD [address] [place] [address] [address] [place] [address] PCP - General Family Medicine - Primary Care 05/24/23 Eliza Rain MD [address] [place] [address] [address] [place] [address] Infectious Disease 05/24/23 Dona Casper NP CNM [address] [place] [address], [address] [place] [address] Car Rental Sales Assistant Midwifery 05/24/23 documented as of this encounter
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
--- OUTSIDE RECORDS SUMMARY | 2024-07-06 18:46 | XMS_ITS | Encounter Summary ---
Author Organization [facility] Address [address] [place] [address] Care Team Providers Care Junior Php Developer Name Role Phone Trevon Boyd MD Primary Care Provider Eliza Rain MD Unavailable [phone] Dona Casper TRACK LAYING EQUIPMENT OPERATOR CN Unavailable Encounter Details Date Type Department Care Team (Latest Contact Info) Description 01/19/2024 Travel Social History Tobacco Use Types Packs/Day Years [...] place to sleep or slept in a fdc (including now)? No 2023 [place] Depression Scale Answer Date Recorded [place] Depression Scale Total 9 05/16/2022 The thought [...] Andrea Serra, RN documented in this encounter Plan of Treatment Not on file documented as of this encounter Visit Diagnoses Not on filedocumented in this encounter Care Teams Junior Php Developer Relationship Specialty Start Date End Date Trevon Boyd MD [address] [place] [phone] PCP - General Family Medicine - Primary Care 05/24/23 Eliza Rain MD [address] [place] [phone] Infectious Disease 05/24/23 Dona Casper NP CN [address] [place] [address], [address] [place] [address] Technology Methodology Consultant Midwifery 05/24/23 documented as of this encounter
[2024-07-06] MEDS: MacroBID 100 MG CAP, 2 CAPS/BTL PO (18:47)
--- OUTSIDE RECORDS SUMMARY | 2024-07-06 18:47 | XMS_ITS | Encounter Summary ---
Author Organization [facility] Address [address] [place] [address] Care Team Providers Care Piping Supervisor Name Role Phone Trevon Boyd MD Primary Care Provider Eliza Rain MD Unavailable [phone] Dona Casper NP [facility] Unavailable Encounter Details Date Type Department Care Team (Latest Contact Info) Description 06/19/2023 Specialty Pharmacy [facility] [address] [place], [place] [id number] Alicia Boyd RPH Started One-time Clinical Outreach (1 time occurrence) for Infectious Disease Social History Tobacco Use Types Packs/Day Years [...] place to sleep or slept in a half-way (including now)? No 2023 [place] Depression Scale Answer Date Recorded [place] Depression Scale Total 9 05/16/2022 The thought [...] Andrea Serra, RN * Do you have serious difficulty [...] Andrea Serra, RN documented in this encounter Progress Notes * Alicia Boyd RPH - 06/19/2023 1017 EST Patient has completed therapy for Hepatitis C and achieved SVR.She will be discharged from the specialty pharmacy database. Alicia Boyd, PharmD (she/her) Demolition Expert Pharmacist [facility] Specialty Pharmacy 06/22/2023 documented in this encounter Plan of Treatment Not on file documented as of this encounter Visit Diagnoses Not on filedocumented in this encounter Care Teams Piping Supervisor Relationship Specialty Start Date End Date Trevon Boyd MD [address] [place] [address] [address] [place] [address] PCP - General Family Medicine - Primary Care 05/24/23 Eliza Rain MD [address] [place] [address] [address] [place] [address] Infectious Disease 05/24/23 Dona Casper NP CNM [address] [place] [address], [address] [place] [address] Sample Worker Midwifery 05/24/23 documented as of this encounter
--- OUTSIDE RECORDS SUMMARY | 2024-07-06 18:47 | XMS_ITS | Encounter Summary ---
Author Organization [facility] Address [address] [place] [address] Care Team Providers Care Dental Appliance Fixer Name Role Phone Trevon Boyd MD Primary Care Provider Eliza Rain MD Unavailable [phone] Dona Casper [facility] Unavailable Reason for Visit * Reason Onset Date Comments Appointment Related 07/14/2023 Encounter Details Date Type Department Care Team (Late st Contact Info) Description 07/14/2023 Telephone [facility] Medicine [address], [facility] [address] [place] [address] Trevon Boyd MD [address] [facility] [address] [place] [address] Appointment Related Social History Tobacco Use Types Packs/Day Years [...] in a correction (including now)? No 2023 [place] Depression Scale Answer Date Recorded [place] Depression Scale Total 9 05/16/2022 The thought [...] encounter Miscellaneous Notes * Telephone Encounter - ChavezJerel - 07/14/2023 1520 EST Called and left message to call the office back to reschedule TCM f/up alcohol induced acute pancreatitis. documented in this encounter Plan of Treatment Not on file documented as of this encounter Visit Diagnoses Not on filedocumented in this encounter Care Teams Dental Appliance Fixer Relationship Specialty Start Date End Date Trevon Boyd MD [address] [place] [address] [address] [place] [address] PCP - General Family Medicine - Primary Care 05/24/23 Eliza Rain MD [address] [place] [address] [address] [place] [address] Infectious Disease 05/24/23 Dona Casper NP CNM [address] [place] [address] [address] [place] [address] Sample Sawyer Midwifery 05/24/23 documented as of this encounter
--- OUTSIDE RECORDS SUMMARY | 2024-07-06 18:47 | XMS_ITS | Encounter Summary ---
Author Organization [facility] Address [address] [place] [address] Care Team Providers Care Community Health Educator Name Role Phone Trevon Boyd MD Primary Care Provider Eliza Rain MD Unavailable [phone] Dona Casper NP [facility] Unavailable Reason for Visit * Auth/Cert (Routine) Specialty Diagnoses / Procedures [facility] Referred To Contact Diagnoses Pancreatitis, unspecified pancreatitis type Alcohol-induced acute pancreatitis, unspecified complication status Pancreatitis, unspecified pancreatitis type [K85.90] Referral ID Status Reason Start Date Expiration Date Visits Re quested Visits Authorized [id number] 1 1 Encounter Details Date Type Department Care Team (Late st Contact Info) Description 06/20/2023 13:00 EST Community Health Team [facility] [address] [place] [address] [facility], [facility] Social History Tobacco Use Types Packs/Day Years [...] place to sleep or slept in a care home (including now)? No 2023 [place] Depression Scale Answer Date Recorded [place] Depression Scale Total 9 05/16/2022 The thought [...] Andrea Serra RN documented in this encounter Progress Notes * Tammy Foreman - 06/20/2023 1300 EST Brief visit with [place], to offer support around substance use treatment and community supports; Daeasiya shared she had a visit from [facility]'s Trini Engel, and has appointment scheduled today to meet with a Animal Pathology Teacher (possibly Kimmy Perrin). Clinician offered additional supports to pt as she needs; agreement for clinician to reach out to pt in one week and/or for pt to contact this clinician as needed. documented in this encounter Plan of Treatment Not on file documented as of this encounter Visit Diagnoses Not on filedocumented in this encounter Care Teams Community Health Educator Relationship Specialty Start Date End Date Trevon Boyd MD [address] [place] [phone] PCP - General Family Medicine - Primary Care 05/24/23 Eliza Rain MD [address] [place] [phone] Infectious Disease 05/24/23 Dona Casper NP CNM [address] [place] [address], [address] [place] [address] Preform Machine Operator Midwifery 05/24/23 documented as of this encounter
--- OUTSIDE RECORDS SUMMARY | 2024-07-06 18:47 | XMS_ITS | Encounter Summary ---
Author Organization [facility] Address [address] [place] [address] Care Team Providers Care Woven Paper Hat Mender Name Role Phone None, Provider Primary Care Provider Unavailabl e Reason for Visit * Reason Onset Date Comments Establish Care 03/27/2023 Paperwork request 03/27/2023 Encounter Details Date Type Department Care Team (Late st Contact Info) Description 03/27/2023 Telephone [facility] [place] [address], [address] [place] [address] None, Provider Establish Care; Paperwork request Social History Tobacco Use Types Packs/Day Years Used Date Smoking Tobacco: Never Smokeless Tobacco: Never Alcohol Use Standard Drinks/Week Comments Not Currently 0 (1 standard drink = 0.6 oz pur e alcohol) sporadic in past Hunger Vital Sign Answer Date Recorded Within the past 12 months, y ou worried that your food would run out before you got the money to buy more. Sometimes true Within the past 12 months, t he food you bought just didn't last and you didn't have money to get more. Sometimes true [place] Depression Scale Answer Date Recorded [place] Depression Scale Total 9 05/16/2022 The thought [...] hearing? Answer Date of Assessment Author No 03/24/2023 18:40 EDT Jeannette Gooden RN * Are you blind or do you have serious difficulty seeing, even when wearing glasses? Answer Date of Assessment Author No 02/11/2022 23:00 EDT Leif Altamirano RN * Do you have serious difficulty walking or climbing stairs? (5 years old or older) Answer Date of Assessment Author No 02/11/2022 23:00 SHEILAT Leif Altamirano RN * Do you have difficulty dressing or bathing? (5 years old or older) Answer Date of Assessment Author No 02/11/2022 23:00 EDT Leif Altamirano RN * Because of a physical, mental, or emotional condition, do you have difficulty doing errands alone such as visiting a doctor's office or shopping? (15 years old or older) Answer Date of Assessment Author No 02/11/2022 23:00 SHEILAT Leif Altamirano RN documented as of this encounter Mental Status * Because of a physical, mental, or emotional condition, do you have serious difficulty concentrating, remembering, or making decisions? (5 years old or older) Answer Entry Date Author No 02/11/2022 23:00 Leif Antonio RN documented in this encounter Miscellaneous Notes * Telephone Encounter - Shannon Correa - 03/27/2023 1537 EDT Ashley calling from [facility] [place] Management Team because patient was seen at ED without a provider. We were regional forester, I scheduled her to est care with JASMEET on 05/08. I mailed PERFUSIONIST paperwork to address on file. I asked Ashley explain to the patient if she no calls/no shows apt she will not get another. Ashley agreed. documented in this encounter Plan of Treatment Not on file documented as of this encounter Visit Diagnoses Not on filedocumented in this encounter Care Teams Woven Paper Hat Mender Relationship Specialty Start Date End Date None, Provider PCP - General 09/16/22 05/23/23 documented as of this encounter
--- OUTSIDE RECORDS SUMMARY | 2024-07-06 18:47 | XMS_ITS | Encounter Summary ---
Author Organization [facility] Address [address] [place] [address] Care Team Providers Care Engineering Program Analyst Name Role Phone Trevon Boyd MD Primary Care Provider Eliza Rain MD Unavailable [phone] Dona Casper NP [facility] Unavailable Reason for Visit * Reason Onset Date Comments Patient Outreach 06/01/2023 Encounter Details Date Type Department Care Team (Late st Contact Info) Description 06/01/2023 Telephone [facility] [address] [place] [address] Dona Casper, HUYEN [facility] [address] [place] [address] Patient Outreach Social History Tobacco Use Types Packs/Day Years Used Date Smoking Tobacco: Never Smokeless Tobacco: Never Alcohol Use Standard Drinks/Week Comments Not Currently 42 (1 standard drink = 0.6 oz [...] have money to get more. Sometimes true [place] Depression Scale Answer Date Recorded [place] Depression Scale Total 9 05/16/2022 The thought [...] Date of Assessment Author No 02/11/2022 23:00 Leif Antonio RN * Do you have serious difficulty walking or climbing stairs? (5 years old or older) Answer Date of Assessment Author No 02/11/2022 23:00 Leif Antonio RN * Do you have difficulty dressing or bathing? (5 years old or older) Answer Date of Assessment Author No 02/11/2022 23:00 Leif Antonio RN * Because of a physical, mental, or emotional condition, do you have difficulty doing errands alone such as visiting a doctor's office or shopping? (15 years old or older) Answer Date of Assessment Author No 02/11/2022 23:00 Leif Antonio RN documented as of this encounter Mental Status * Because of a physical, mental, or emotional condition, do you have serious difficulty concentrating, remembering, or making decisions? (5 years old or older) Answer Entry Date Author No 02/11/2022 23:00 Leif Antonio RN documented in this encounter Miscellaneous Notes * Telephone Encounter - Tammy Foreman - 06/01/2023 1011 EST Dona, If you are in contact with Karin, please offer my services to her as well and I'll follow up withKimmy Perrin, Money Manager pressure supervisor as well. * Telephone Encounter - Dona Casper APRN - 06/01/2023 0924 EST Voice mail message left for pt after receiving transition of care from ER. Voiced support for client, would be happy to talk with her, see her in the office. Encourage her to call me and I will call her back. Also - looks like she is due for a pap and want to make sure that her contraceptive needs are being met (last depo was 09/2022) If she calls back - please prioritize a visit for her with me or Sarah Armijo CNM or any provider. Happy to be creative with my schedule to accommodate her. Dona Casper CNM, ENVIRONMENTAL PROTECTION INSPECTOR Certified Nurse Floor Manager & Family Nurse Practitioner documented in this encounter Plan of Treatment Not on file documented as of this encounter Visit Diagnoses Not on filedocumented in this encounter Care Teams Engineering Program Analyst Relationship Specialty Start Date End Date Trevon Boyd MD [address] [place] [address] [address] [place] [phone] PCP - General Family Medicine - Primary Care 05/24/23 Eliza Rain MD [address] [place] [phone] Infectious Disease 05/24/23 Dona Casper NP CNM [address] [place] [address], [address] [place] [address] Floor Manager Midwifery 05/24/23 documented as of this encounter
--- OUTSIDE RECORDS SUMMARY | 2024-07-06 18:47 | XMS_ITS | Encounter Summary ---
Author Organization [facility] Address [address] [place] [address] Care Team Providers Care Heel Slicker Name Role Phone Trevon Boyd MD Primary Care Provider Eliza Rain MD Unavailable [phone] Dona Casper COOK CHILL TECHNICIAN CNM Unavailable Encounter Details Date Type Department Care Team (Latest Contact Info) Description 06/03/2023 Travel Social History Tobacco Use Types Packs/Day [...] have money to get more. Sometimes true [place] Depression Scale Answer Date Recorded [place] Depression Scale Total 9 05/16/2022 The thought [...] Leif Antonio RN documented in this encounter Plan of Treatment Not on file documented as of this encounter Visit Diagnoses Not on filedocumented in this encounter Care Teams Heel Slicker Relationship Specialty Start Date End Date Trevon Boyd MD [address] [place] [phone] PCP - General Family Medicine - Primary Care 05/24/23 Eliza Rain MD [address] [place] [address] [address] [place] [phone] Infectious Disease 05/24/23 Dona Casper NP CNM [address] [place] [address], [address] [place] [address] Patient Services Coordinator Midwifery 05/24/23 documented as of this encounter
--- OUTSIDE RECORDS SUMMARY | 2024-07-06 18:47 | XMS_ITS | Encounter Summary ---
Author Organization [facility] Address [address] [place] [address] Care Team Providers Care Blindstitch Lapel Padder Name Role Phone None, Provider Primary Care Provider Unavailabl e Reason for Visit * Reason Onset Date Comments Medications Refill 02/23/2023 Encounter Details Date Type Department Care Team (Late st Contact Info) Description 02/23/2023 Telephone [facility] - [facility] [address] [place], [place] [phone] Misti Baxter RN Medications Refill Social History Tobacco Use Types Packs/Day Years [...] have money to get more. Sometimes true [place] Depression Scale Answer Date Recorded [place] Depression Scale Total 9 05/16/2022 The thought [...] hearing? Answer Date of Assessment Author No 09/16/2022 15:21 EDT Nya Wing RN * Are you blind or do [...] No 02/11/2022 23:00 EDT Leif Altamirano RN documented as of this encounter Mental Status * Because of a physical, mental, or emotional condition, do you have serious difficulty concentrating, remembering, or making decisions? (5 years old or older) Answer Entry Date Author No 02/11/2022 23:00 EDT Leif Altamirano RN documented in this encounter Miscellaneous Notes * Telephone Encounter - Misti Baxter RN - 02/28/2023 1640 EDT Chart reviewed; pt has not called back . TE closed * Telephone Encounter - Misti Baxter RN - 02/24/2023 1405 EDT Last appt: 09/21/22 OV with EV - received DEPO dose #1 that day Plan at that time: Contraception options reviewed - will proceed with Depo. Quick start reviewed. Handout reviewed andgiven. Due to Hep C treatment - recommend that we stick with progestin bearing method at present Once that is completed - we can look at maria array of contraceptive options! Similarly - due to medications for tx of Hep C and methadone --> safest to hold on medication change for mood as well Recommend that we continue sertraline 25 mg at present. Probably prudent to get new baseline EKG prior to initiation of different SSRI (given methadone) Establish with new PCP (card given) Depo #1 given today by RN. Plan rpt DMPA in 12 weeks TE from 10/21/22: F/u appt canceled - pt to get EKG done. It was ordered and is NOT completed Next appt: Not scheduled Last refilled: 06/30/22 for 90 days with 1 refill by EV Disp report: 90 day supply, 11/28/22 Attempted to call pt to discuss need for EKG. * Telephone Encounter - Misti Baxter RN - 02/23/2023 1601 EDT Fax refill request from [facility] for sertraline 25 mg tablets. Last filled 11/28/22 for 90 day supply documented in this encounter Plan of Treatment Not on file documented as of this encounter Visit Diagnoses Not on filedocumented in this encounter Care Teams Blindstitch Lapel Padder Relationship Specialty Start Date End Date None, Provider PCP - General 09/16/22 05/23/23 documented as of this encounter
--- OUTSIDE RECORDS SUMMARY | 2024-07-06 18:47 | XMS_ITS | Encounter Summary ---
Author Organization [facility] Address [address] [place] [address] Care Team Providers Care Seed Potato Cutter Name Role Phone None, Provider Primary Care Provider Unavailabl e Reason for Visit * Reason Comments Abdominal Pain Patient has been hav ing severe epigastric pain radiating into her chest since this morning. It is constant. She denies n/v/d. She denies fever/chills/sob. No urinary symptoms. Encounter Details Date Type Department Care Team (Late st Contact Info) Description 03/24/2023 18:47 EDT - 03/24/2023 21:39 EDT Emergency [facility] Emergency Department [address] [place] [address] Vi Valle PA-C [address] [facility], [address] [place] [address] Alcohol-induced acute pancreatitis, unspecified complication status (Primary Dx) Discharge Disposition: Home or Self [...] have money to get more. Sometimes true Dutton Depression Scale Answer Date Recorded Dutton Depression Scale Total 9 05/16/2022 The thought [...] Sign Reading Time Taken Comments Blood Pressure 140/86 03/24/20232138 EDT Pulse 70 03/24/20232138 EDT Temperature 37 ??C (98.6 ??F) 03/24/20232138 EDT Respiratory Rate 18 03/24/20232138 EDT Oxygen Saturation 99% 03/24/20232138 EDT Inhaled Oxygen Concentration - - Weight 79.4 kg (175 lb) 03/24/2023 1840 EDT Height - - Body Mass Index 26.61 09/21/2022 1427 EDT documented in this encounter Functional Status * Are you deaf or do you have serious difficulty hearing? Answer Date of Assessment Author No 03/24/2023 18:40 EDT Jeannette Gooden, RN * Are you blind or do [...] Leif Altamirano RN documented in this encounter Discharge Instructions * Discharge Instructions* Vi Valle PA-C - 03/24/2023 21:17 EDT your evaluation today suggests alcoholic pancreatitis. recommend that you minimize your alcohol use and return as needed if you would like more help with stopping drinking, the lacrosse coach will touch base with you. ok to eat bland foods if it doesn't worsen your pain, can take tylenol and ibuprofen. return as needed if you develop significant increase or change in pain, fevers, persistent vomitingor other concerning symptoms. care management will be in touch with you next week to try and help coordinate a primary care for you. documented in this encounter Medications at Time of Discharge methadone (DOLOPHINE) 10 mg tablet Take 13.5 Tablets by mouth daily. acetaminophen (TYLENOL) 500 mg tablet Take 2 Tablets by mouth every 8 hours as needed for Pain. 60 Tablet 02/13/2022 2023 VITAMIN PLUS LOW IRON 27 mg iron- 1 mg tablet tablet Take 1 Tablet by mouth daily for 360 days. 90 Tablet 3 06/24/2022 2023 sertraline (ZOLOFT) 25 mg tablet Take 25 mg by mouth daily. 2023 documented as of this encounter Discharge Disposition Disposition Code Departure Means Destination Comment s Home or Self Nursing Home documented in this encounter Progress Notes * Ashley Denson - 03/24/20232138 EDT CM reached out to Pt to help to connect her with a PCP. Pt reports a willingness to engage. CM reached out to [facility] and scheduled an appointment with Dr. Boyd on May 08 at 2:15. CM called Pt back and LM with the appointment information, phone number and address for the providers office. CM also let her know if she can not make this appointment she needs to call and reschedule a head of time as failure to show will result in the loss of the new PCP contact. documented in this encounter ED Notes * Reyna Garcia LMSW - 03/24/20232138 EDT Left message for patient to discuss follow-up/primary care. * Maggy Koo RN - 03/24/20232128 EDT conditioning coach at bedside. * Donavan Hilliard MD - 03/24/20232040 EDT I discussed this patient with the PA. I have reviewed the patient's test results. I agree with the assessment and plan as documented except where noted. 27-year-old female presents with epigastric pain in the setting of drinking a bottle of liquor per day. Work-up consistent with alcoholic pancreatitis. At this time, low suspicion for gallstone pancreatitis. Patient met with lacrosse coach and will plan to set patient up with appropriate outpatientfollow-up. Donavan Hilliard MD * Vi Valle PA-C - 03/24/2023 1854 EDT Emergency Department Visit Medical Decision Making 27 yo female with hx oud on methadone, chronic hep c, depression, active alcohol abuse who presentsto the ED for evaluation of abdominal pain in the epigastric area that started this morning. she has mild epigastric tenderness only, specicilaly no tenderness to rlq or ruq. labs most notable for lipast of almost 2000, does have transamininitis in a pattern consistent with her heavy alcohol use and labs otherwise without suggestion of obstructive process. h/h slightly elevated. she has not had fevers or leukocytosis. case discussed with Dr. Hilliard. not felt to need imaging for biliary involvement at this time. her pain was controlled with ketorolac. she was seen by the lacrosse coach but declined offer of medications. recommend mostly clears and light bland diet if tolerated and given careful return precautions. care management will follow up with her to try and help establish pcp. An EKG was obtained and independently interpreted. Laboratory data was reviewed. ekg nsr, rate of 71, prolonged qtc which is simlar to prior Medical Decision Making Alcohol-induced acute pancreatitis, unspecified complication status: acute illness or injury Amount and/or Complexity of Data Reviewed Labs: ordered. Risk OTC drugs. Prescription drug management. Final diagnoses: Alcohol-induced acute pancreatitis, unspecified complication status Disposition: Discharged Chief complaint: abdominal pain HPI Karin Robles is a 27 y.o. female with hx oud on methadone, chronic hep c, depression, active alcohol abuse who presents to the ED for evaluation of abdominal pain. awoke with a generalized crampy pain and then has noted a sharper epigastric pain for the past few hours. she was able to eat with no c hange in her pain, there is no nausea or vomiting. has not had fevers. sometimes a crampy pain will shoot into her back. she had a small bowel movement this morning, thinks maybe no bowel movement for a couple of days which does happen sometimes with being on methadone. she has been drinking a bottle of liquor daily for quuite some time. she has been trying to cut back and does feel motivated to cut back or quit, she is quite scared of witihdrawal symptoms, due to her experiences withdrawing from heroine. she denies any urinary symptoms. no hx prior abdominal surgeries. has not tried anything for pain yet. History was provided by: the patient Records reviewed include: Patient's pertinent PMH, FH, SH were reviewed and edited as necessary. Nursing notes reviewed. A medical screening exam was performed. Physical Exam BP 140/86 (BP Cuff Location: Left arm) Pulse 70 Temp 37 ??C (98.6 ??F) (Oral) Resp 18 Wt 79.4 kg (175 lb) SpO2 99% BMI 26.61 kg/m?? Physical Exam Constitutional: Well appearing in no acute distress HEENT: Normocephalic, atraumatic, pupils equal and reactive to light, no scleral icterus. Mouth: Moist oral mucosa without apparent lesions Neck: Full ROM, no cervical LAD Heart: RRR without MRG. Symmetric pulses Lungs: Clear to auscultation. No respiratory distress. Abdomen: Soft, minimal epigastric tenderness, no ruq tenderness no cvat, normal bowel sounds. , nondistended Skin: No overt rashes on exposed skin Extremities: Moving spontaneously, warm and well perfused. Neuro: Awake, alert, oriented. Speech is fluent. Movements show normal coordination Psych: Normal affect, appropriate speech, appropriate eye contact. Procedures Procedures documented in this encounter Plan of Treatment Not on file documented as of this encounter Procedures Procedure Name Priority Date/Time Associated Diagnosis Comments ECG REPORT - SCANNED 03/25/2023 10:55 EDT POCT URINE DIPSTICK, VISUAL READ STAT 03/24/2023 20:36 EDT POCT TEST, VISUAL READ STAT 03/24/2023 20:36 EDT COMPLETE BLOOD COUNT AND DIFFERENTIAL STAT 03/24/2023 20:29 EDT EKG 12-LEAD STAT 03/24/2023 20:09 EDT HOLD GREEN TOP STAT 03/24/2023 19:10 EDT LIPASE STAT 03/24/2023 19:10 EDT COMPREHENSIVE METABOLIC PANEL (CMP) STAT 03/24/2023 19:10 EDT documented in this encounter Results * ECG REPORT - SCANNED (03/25/2023 10:55 EDT) 03/25/2023 10:5 5 EDT Scan 2 Upper Cutter PROCEDURE/MINOR SURGICAL OR DERABLES Final Result * (ABNORMAL) POCT URINE DIPSTICK, VISUAL READ (03/24/2023 20:36 EDT) Color, UA Yellow Clarity, UA Slightly Cloudy Glucose, UA Negative . mg/dL Bilirubin, UA Negative Negative Ketones, UA Negative . mg/dL Spec Grav, UA 1.020 1.005 - 1.030 Blood, UA Negative Negative pH, UA 6.5 4.6 - 8.0 Protein, UA Negative . mg/dL Urobilinogen, UA 2.0(A) 0.2 - 1.0 E.U./dL Nitrite, UA Negative . Leuk Esterase Negative Negative Comment Urine URINE SPECIMEN OBTAINED BY CLEAN CATCH PROCEDURE / Unknown 03/24/2023 20:36 EDT [facility] PA-C POINT OF CARE TEST ORDE RABLES Final Result * POCT TEST, VISUAL READ (03/24/2023 20:36 EDT) Test, Urine, POC Negative Negative Control Line Present Yes Background Clear? Yes Urine URINE SPECIMEN OBTAINED BY CLEAN CATCH PROCEDURE / Unknown 03/24/2023 20:36 EDT [facility]-C POINT OF CARE TEST ORDE RABLES Final Result * (ABNORMAL) COMPLETE BLOOD COUNT AND DIFFERENTIAL (03/24/2023 20:29 EDT) WBC 7.07 4.00 - 12.40 K/cmm 03/24/2023 20:36 EDT [facility] RBC 4.61 3.86 - 5.04 M/cmm 03/24/2023 20:36 EDT [facility] Hemoglobin 15.5(H) 11.6 - 15.2 g/dL 03/24/2023 20:36 [facility] HCT 44.5(H) 34.9 - 44.4 % 03/24/2023 20:36 [facility] MCV 97 81 - 98 fL 03/24/2023 20:36 [facility] MCH 33.6(H) 26.7 - 33.3 pg 03/24/2023 20:36 [facility] MCHC 34.8 32.1 - 35.9 g/dL 03/24/2023 20:36 [facility] RDW-CV 13.4 <14.7 % 03/24/2023 20:36 [facility] RDW-SD 47.8 <50.4 fl 03/24/2023 20:36 [facility] PLT 274 141 - 377 K/cmm 03/24/2023 20:36 [facility] MPV 9.5 9.5 - 12.7 fL 03/24/2023 20:36 [facility] % Neutrophils 65.5 % 03/24/2023 20:36 [facility] % Lymphocytes 25.7 % 03/24/2023 20:36 [facility] % Monocytes 7.4 % 03/24/2023 20:36 [facility] % Eosinophils 0.7 % 03/24/2023 20:36 [facility] % Basophils 0.4 % 03/24/2023 20:36 [facility] % Immature Grans 0.3 % 03/24/20 20:36 [facility] Absolute Neutrophils 4.63 2.20 - 8.85 K/cmm 03/24/2023 20:36 [facility] Absolute Lymphocytes 1.82 1.09 - 3.30 K/cmm 03/24/2023 20:36 [facility] Absolute Monocytes 0.52 0.10 - 0.80 K/cmm 03/24/2023 20:36 [facility] Absolute Eosinophils 0.05 0.03 - 0.61 K/cmm 03/24/2023 20:36 EDT [facility] ABS Basophils 0.03 0.01 - 0.11 K/cmm 03/24/2023 20:36 EDT [facility] Absolute Immature Grans 0.02 0.00 - 0.06 K/cmm 03/24/2023 20:36 EDT [facility] Type of Differential: Auto 03/24/2023 20:36 EDT [facility] Blood VENOUS BLOOD / Unknown Venipuncture / Unknown 03/24/2023 20:29 EDT 03/24/2023 20:32 EDT Vi Valle PA-C PACKAGES & DNA PROBE OR DERABLES Final Result [facility] [address] [place] [address] * EKG 12-LEAD (03/24/2023 20:09 EDT) 03/24/2023 20:0 9 EDT Narrative [facility] - 03/25/2023 10:42 EDT ? [facility] ? Test Date: ?2023-03-24 Pat Name: ? DESAREA SALLS ?Department: ? Room: ? C06 Gender: ? Female ? 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 BINH : ?1995 ? Requested By: CELESTINE Paredes Order Number: [id number] ? Reading : ?? PATRICIO MCWILLIAMS MD ? Measurements Intervals ?[place] ? Rate: ? 71 ? P: ?36 LA: ? 146 ?QRS: ?3 QRSD: ? 86 ? T: ?43 QT: ? 442 ? QTc: ?480 ? Interpretive Statements Normal sinus rhythm with sinus arrhythmia Prolonged QT Compared to ECG 11/15/2021 07:52:39 No significant change I reviewed the tracing and have either agreed or edited the findings in this report. Electronically Signed On 03-25-2023 10:42:35 EDT by PATRICIO MCWILLIAMS MD. 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 Electronically Signed On 03-25-2023 10:42:35 EDT by PATRICIO PATEL. Vi HENDRICKSC CARDIAC ECG ORDERABLES Final Result Performing Organization Address [facility]/ZIP Co de Phone Number [facility] * (ABNORMAL) LIPASE (03/24/2023 19:10 EDT) Lipase 1,717(H) <251 U/L 03/24/2023 20:11 EDT [facility] Blood VENOUS BLOOD / Unknown Venipuncture / Unknown 03/24/2023 19:10 EDT 03/24/2023 19:54 EDT Viharish PEDRO-C CHEMISTRY & BLOOD GAS O RDERABLES Final Result Performing Organization Address [facility]/ZIP Co de Phone Number [facility] [address] [place] [address] * HOLD GREEN TOP (03/24/2023 19:10 EDT) Hold Hold 03/24/2023 21:01 EDT [facility] Blood VENOUS BLOOD / Unknown Venipuncture / Unknown 03/24/2023 19:10 EDT 03/24/2023 19:54 EDT Vi Angel PEDRO-C LAB INFO SERVICE AND HEREDIA PPORT & PHONE RESULT Final Result [facility] [address] [place] [address] * (ABNORMAL) COMPREHENSIVE METABOLIC PANEL (CMP) (03/24/2023 19:10 EDT) Sodium 136 136 - 145 mmol/L 03/24/2023 20:17 [facility] Potassium 4.4 3.5 - 5.0 mmol/L 03/24/2023 20:17 [facility] Comment:Slight hemolysis angelica ntified, interpret with caution as hemolysis will elevate potassium result. Chloride 101 96 - 110 mmol/L 03/24/2023 20:17 [facility] CO2 Total 25 22 - 32 mmol/L 03/24/2023 20:17 [facility] Glucose 92 70 - 99 mg/dl 03/24/2023 20:17 [facility] BUN 7(L) 10 - 26 mg/dL 03/24/2023 20:17 [facility] Comment: Slight hemolysis identified, interpret with caution as results may be affected due to hemolysis. Creatinine 0.82 0.52 - 1.04 mg/dL 03/24/2023 20:17 [facility] eGFR 101 >60 mL/min/1.7 3m2 03/24/2023 20:17 [facility] Total Protein 8.2 6.3 - 8.2 g/dL 03/24/2023 20:17 [facility] Comment:Slight hemolysis angelica ntified, interpret with caution as results may be affected due to hemolysis. Albumin 4.4 3.4 - 4.9 g/dL 03/24/2023 20:17 [facility] Comment:Slight hemolysis angelica ntified, interpret with caution as results may be affected due to hemolysis. Alkaline Phosphatase 116 38 - 126 U/L 03/24/2023 20:17 [facility] Comment:Slight hemolysis angelica ntified, hemolysis will decrease ALKP result. Interpret with caution as results may be affected due to hemolysis. AST 244(H) 15 - 46 U/L 03/24/2023 20:17 [facility] Comment:Slight hemolysis angelica ntified, interpret with caution as results may be affected due to hemolysis. ALT 99(H) <35 U/L 03/24/2023 20:17 [facility] Bilirubin, Total 1.2 <1.4 mg/dL 03/24/20 20:17 [facility] Calcium 9.5 8.5 - 10.5 mg/dL 03/24/2023 20:17 [facility] Albumin/Globulin Ratio 1.2 1.0 - 2.5 g/dL 03/24/2023 20:17 [facility] Anion Gap 10 5 - 14 mmol/L 03/24/2023 20:17 [facility] Blood VENOUS BLOOD / Unknown Venipuncture / Unknown 03/24/2023 19:10 EDT 03/24/2023 19:54 EDT Vi Valle PA-C CHEMISTRY & BLOOD GAS O RDERABLES Final Result [facility] [address] [place] [address] documented in this encounter Visit Diagnoses Diagnosis Alcohol-induced acute pancreatitis, unspecified complication status- Primary documented in this encounter Administered Medications Inactive Administered Medications - up to 3 most recent administrations Medication Order MAR Action Action Date Dose Rate Site acetaminophen (TYLENOL) tablet 975 mg 975 mg (rounded from 1,000 mg), oral, NOW X1, 1 dose, On Mon03/24/23 at 2115, Routine Given 03/24/2023 21:05 EDT 975 mg aluminum & magnesium hydroxide-simethicone (MAALOX PLUS) 200-200-20 mg/5 mL suspension 30 mL 30 mL, oral, NOW X1, 1 dose, On Mon03/24/23 at 1930, STAT Given 03/24/2023 19:26 EDT 30 mL famotidine (PEPCID) injection 20 mg 20 mg, intravenous, NOW X1, 1 dose, On Mon03/24/23 at 1930, STAT Given 03/24/2023 19:55 EDT 20 mg ketOROLAC (TORADOL) injection 15 mg 15 mg, intravenous, NOW X1, 1 dose, On Mon03/24/23 at 2115, STAT Given 03/24/2023 21:05 EDT 15 mg lactated ringers BOLUS 1,000 mL 1,000 mL, intravenous, NOW X1, 1 dose, On Mon03/24/23 at 1930, STAT New Bag 03/24/2023 19:55 EDT 1,000 mL lidocaine (XYLOCAINE) 2 % viscous solution 10 mL 10 mL, oral, NOW X1, 1 dose, On Mon03/24/23 at 1930, Routine Given 03/24/2023 19:25 EDT 10 mL documented in this encounter Active and Recently Administered Medications Times are shown in EDT. Scheduled Medication Order 03/22/2023 03/23/2023 03/24/2023 acetaminophen (TYLENOL) tablet 975 mg (COMPLETED) 975 mg (rounded from 1,000 mg), oral, NOW X1, 1 dose, On Mon03/24/23 at 2115, Routine 2104 (Given - Provid er: Victoriano Stover RN) aluminum & magnesium hydroxide-simethicone (MAALOX PLUS) 200-200-20 mg/5 mL suspension 30 mL (COMPLETED) 30 mL, oral, NOW X1, 1 dose, On Mon03/24/23 at 1930, STAT 1925 (Given - Provid er: Victoriano Stover RN) famotidine (PEPCID) injection 20 mg (COMPLETED) 20 mg, intravenous, NOW X1, 1 dose, On Mon03/24/23 at 1930, STAT 1954 (Given - Provid er: Victoriano Stover RN) ketOROLAC (TORADOL) injection 15 mg (COMPLETED) 15 mg, intravenous, NOW X1, 1 dose, On Mon03/24/23 at 2115, STAT 2104 (Given - Provid er: Victoriano Stover RN) lactated ringers BOLUS 1,000 mL (COMPLETED) 1,000 mL, intravenous, NOW X1, 1 dose, On Mon03/24/23 at 1930, STAT 1954 (New Bag - Prov ider: Victoriano Stover RN)2128 (IV Stopped - Provider: Maggy Koo RN) lidocaine (XYLOCAINE) 2 % viscous solution 10 mL (COMPLETED) 10 mL, oral, NOW X1, 1 dose, On Mon03/24/23 at 1930, Routine 1925 (Given - Provid er: Victoriano Stover RN) documented in this encounter Care Teams Seed Potato Cutter Relationship Specialty Start Date End Date None, Provider PCP - General 09/16/22 05/23/23 documented as of this encounter
--- OUTSIDE RECORDS SUMMARY | 2024-07-06 18:47 | XMS_ITS | Encounter Summary ---
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 Pt admits to being an alcoholic and states vomiting up everything. Went to md Monday and told liver is bad along with pancreas. Encounter Details Date Type Department Care Team (Late st Contact Info) Description 05/31/2023 16:33 EST - 05/31/2023 21:29 EST Emergency [facility] Emergency Department [address], [place] [id number] Magdi Amin MD [address] [place] [address] Alcoholic intoxication with complication (HCC-CMS) (Primary Dx); Nausea and vomiting, unspecified vomiting type; Alcoholic hepatitis without ascites; Alcohol-induced acute pancreatitis, unspecified complication status Discharge Disposition: Home or Self Care Social [...] have money to get more. Sometimes true Bel[place] Depression Scale Answer Date Recorded [place] Depression Scale Total 9 05/16/2022 The thought [...] Sign Reading Time Taken Comments Blood Pressure 127/88 05/31/2023 2100 EST Pulse 157 05/31/2023 1621 EST Temperature 37.1 ??C (98.7 ??F) 05/31/2023 1621 EST Respiratory Rate 14 05/31/2023 2100 EST Oxygen Saturation 98% 05/31/2023 2100 EST Inhaled Oxygen Concentration - - Weight 79.4 kg (175 lb) 05/31/2023 1621 EST Height - - Body Mass Index 27 05/24/2023 1314 EST documented in this encounter Functional Status * [...] Leif Antonio RN documented in this encounter Discharge Instructions * Discharge Instructions* Magdi Amin MD - 05/31/2023 16:42 EST Heroin/fentanyl use. As discussed your use of alcohol is causing stress on both your liver and yourpancreas. Your pancreas numbers today are much improved. Your liver numbers remain mildly elevated. You were treated with some medication today to prevent alcohol withdrawal. I would encourage you torefrain from alcohol use. Sathya from the recovery center will give you a call tomorrow to check on your status. Please follow-up with the hub regarding her methadone. I encourage you to try and cut back on any othe drug use. Please return to the emergency department for any worsening symptoms documented in this encounter Medications at Time of Discharge methadone (DOLOPHINE) 10 mg tablet Take 13.5 Tablets by mouth daily. acetaminophen (TYLENOL) 500 mg tablet Take 2 Tablets by mouth every 8 hours as needed for Pain. 60 Tablet 02/13/2022 2023 amoxicillin-clavu lanate (AUGMENTIN) 875-125 mg per tabletIndications :Subacute maxillary sinusitis Take 1 Tablet by mouth 2 times daily for 10 days. 20 Tablet 05/24/2023 06/03/2023 VITAMIN PLUS LOW IRON 27 mg iron- 1 mg tablet tablet Take 1 Tablet by mouth daily for 360 days. 90 Tablet 3 06/24/2022 2023 sertraline (ZOLOFT) 25 mg tablet Take 25 mg by mouth daily. 2023 topiramate (TOPAMAX) 25 mg tabletIndications :Alcohol use disorder Take 1 Tablet by mouth 2 times daily. 60 Tablet 1 05/24/2023 2023 documented as of this encounter Ordered Prescriptions Prescription Sig Dispense Quantity Refills Last Filled Start Date End Date penicillin v potassium (VEETID) 500 mg tablet Take 1 Tablet by mouth 4 times daily for 7 days. 28 Tablet 05/31/2023 05/31/2023 documented in this encounter Discharge Disposition Disposition Code Departure Means Destination Comment s Home or Self Assisted documented in this encounter ED Notes * Wilmer Goldman RN - 05/31/20232126 EST MD Alivia at bedside discussing results. Pt given and verb understanding of discharge teaching. * Wilmer Goldman RN - 05/31/2023 1850 EST Attempted to hook pt up to the monitor. Pt is out of bed and states I just want to leave Ask if she was feeling better and updated her about lab work and her not being discharged from the doctor yet. Pt states that she still wants to leave. MD Alivia made aware. * Michael Jurado RN - 05/31/2023 1847 EST Pt requesting more medication. Pt reports, I just dont feel good. Denies CIWA criteria symptoms. Pt's HR elevated in the 140's but pt had just returned from bathroom. Primary RN aware. CIWA assessment to be re-done after pt has been resting. * Wilmer Goldman RN - 05/31/2023 1658 EST 12 Lead EKG Performed by WILMER GOLDMAN RN and shown to Magdi Amin MD. * Magdi Amin MD - 05/31/2023 1619 EST Emergency Department Visit Medical Decision Making 27-year-old female with a history of both alcohol and opiate use disorders on maintenance methadonebut still using IV opiates and drinking 1/5 of vodka a day presenting today with intractable vomiting and now withdrawal. I did review a recent visit with her PCP on the . I also see that she hadlab work done that day notable for an ALT of 99 and AST of 244 but normal T. bili of 1.2 but a lipase of 1717. I suspect that she has ongoing pancreatitis that is likely driving the vomiting which issubsequently causing her alcohol withdrawal symptoms. She presents today with significant tachycardia as well as other signs of withdrawal including hypertension, agitation, and tremors. Will rule out concomitant illness such as sepsis and infection which she is at risk due to the IV drug use. Will simultaneously treat for alcohol withdrawal with fluids and bolus of phenobarbital 10/kg. I have asked Sathya the peer personal development coach to come speak with the patient as well. Relevant Data as of 05/31/23 2332 MonMay 31, 2023 1856 Patient requesting to leave. I just went and reevaluated her. She states she is feeling much better. Less shaky. Nausea has resolved. Her vital signs had improved dramatically with the IV fluid and initial dose of phenobarbital. However walking back from the bathroom she became quite tachycardic and heart rate of 147. I suspect that she is still dry and still with significant withdrawal. I spoke with the patient regarding her desire to leave. She indicated that she wanted to be with her child. Child is at home with dad. Metabolic panel still has not returned. I am concerned that there could be significant abnormality. I have suggested that she at least a for the lab work to return and that ultimately I would likely recommend admission. She is willing to stay for now. She is talking with her mom about other options. [MG] Relevant Data User Index [MG] Magdi Amin MD Remainder of the patient's labs have returned. Lipase is improved and is down to 369. LFTs remain elevated with an AST of 241 and ALT of 82. T. bili was 0.6. Alk phos 116. Right upper quadrant ultrasound was obtained and reveals hepatic steatosis. Alcohol level has come back markedly elevated at 329. Patient is feeling much improved. She has changed her mind and is unwilling to stay here in the hospital tonight. She is called her mom for a ride back home. I have and encouraged her to consider cutting back with her alcohol consumption. She states that she will consider this. Will ask for personal development coach is to reach out to her tomorrow. See discharge instructions An EKG was obtained and independently interpreted.Laboratory data was reviewed. Medical Decision Making Problems Addressed: Alcoholic hepatitis without ascites: complicated acute illness or injury Alcoholic intoxication with complication (HCC-CMS): complicated acute illness or injury Alcohol-induced acute pancreatitis, unspecified complication status: complicated acute illness or injury Nausea and vomiting, unspecified vomiting type: complicated acute illness or injury Amount and/or Complexity of Data Reviewed Labs: ordered. Radiology: ordered. Risk Prescription drug management. Final diagnoses: Alcoholic intoxication with complication (HCC-CMS) Nausea and vomiting, unspecified vomiting type Alcoholic hepatitis without ascites Alcohol-induced acute pancreatitis, unspecified complication status Disposition: Discharged Chief complaint: Uncontrolled vomiting, alcohol withdrawal, HPI Fortino Robles is a 27 y.o. female with history of both alcohol and opiate use disorder. Patient presents today feeling that she is withdrawing and having intractable vomiting. She notes that she typically drinks fifth of vodka every day. She had been drinking yesterday. She has had only 1 shot today but vomited it up. She also continues to use IV opiates. She states that she typically injects 10 bags a day. She is also on methadone 135 mg a day. Methadone is obtained at the hub here in [place]. She reports that she has been feeling very poorly for the last several days. She notes that she saw her PCP who told her that her liver and pancreas are both shot. PCP prescribed Topamax although she has not yet started it. Patient states she feels terrible. She feels that she is withdrawing. She is incredibly shaky. She has nausea and vomiting. She tried drinking a shot of vodka earlier but vomited it up. She feels very anxious and antsy. She denies hallucinations. She is not having any abdominal or back pain. No chest pain. No cough or URI symptoms. No fevers orchills. No urinary symptoms. She does report that she has developed a peeling rash on her face overthe last several days. This is not painful nor is it pruritic. History was provided by: Patient and significant other Records reviewed include: Visit to PCPs office on 05/24/2023 Patient's pertinent PMH, FH, SH were reviewed and edited as necessary. Nursing notes reviewed. A medical screening exam was performed. Physical Exam BP 127/88 Pulse (!) 157 Temp 37.1 ??C (98.7 ??F) Resp 14 Wt 79.4 kg (175 lb) SpO2 98% BMI 27.00 kg/m?? Physical Exam Nursing notes and vital signs were reviewed. Constitutional: Ill-appearing. Head: atraumatic. Normocephalic. Eyes: Pupils equal and reactive to light, no scleral icterus ENT: Oral mucosa is quite dry W=without apparent lesions.external ears unremarkable. Neck: supple with Full ROM, no cervical LAD Heart: Regular tachycardic rhythm without murmur rub or gallop. Lungs: No respiratory distress. Clear to auscultation bilaterally. Abdomen: Soft NT/ND. Normal Bowel sounds. No hepato-splenomegally. Skin: She has a faint pink desquamating rash on her face involving the forehead cheeks and chin. Similar rash on her back. She does have some track ramirez in the right upper extremity. Upper Extremities: Moving spontaneously, warm and well perfused. Lower Extremities: moving spontaneously. No LE edema. No calf tenderness Neuro: Alert and Oriented. normal speech. Grossly normal strength. No facial droop. Psych: Anxious and mildly agitated. Occasionally kicking her legs out as she cannot sit still. Procedures Procedures documented in this encounter Plan of Treatment Not on file documented as of this encounter Procedures Procedure Name Priority Date/Time Associated Diagnosis Comments ECG REPORT - SCANNED 06/07/2023 20:26 EST LACTIC ACID STAT 05/31/2023 21:00 EST US ABDOMEN LIMITED STAT 05/31/2023 20 :16 EST LACTIC ACID WITH REFLEX - USE FOR INITIAL SEPSIS EVALUATION STAT 05/31/2023 17:43 EST BACTERIAL CULTURE, BLOOD STAT 05/31/2023 17:43 EST BACTERIAL CULTURE, BLOOD STAT 05/31/2023 17:43 EST BHCG SCREEN, STAT 17:42 EST HOLD LAVENDER TOP Routine 05/31/2023 17: 42 EST HOLD GREEN TOP Routine 05/31/2023 17:42 EST HOLD BLUE TOP Routine 05/31/2023 17:42 EST COMPLETE BLOOD COUNT AND DIFFERENTIAL STAT 05/31/2023 17:42 EST C REACTIVE PROTEIN STAT 05/31/2023 17 :42 EST PHOSPHORUS STAT 05/31/2023 17:42 EST MAGNESIUM STAT 05/31/2023 17:42 EST LIPASE STAT 05/31/2023 17:42 EST ETHANOL, BLOOD STAT 05/31/2023 17:42 EST COMPREHENSIVE METABOLIC PANEL (CMP) STAT 05/31/2023 17:42 EST EKG 12-LEAD STAT 05/31/2023 16:47 EST documented in this encounter Results * ECG REPORT - SCANNED (06/07/2023 20:26 EST) 06/07/2023 20:2 6 EST us Scan 2 Dispatch Specialist PROCEDURE/MINOR SURGICAL OR DERABLES Final Result * (ABNORMAL) LACTIC ACID (05/31/2023 21:00 EST) Lactic Acid 2.8(HH) <=2.0 mmol/L 05/31/2023 21:[address] [facility] Blood VENOUS BLOOD / Unknown Venipuncture / Unknown 05/31/2023 21:00 EST 05/31/2023 21:02 EST us Magdi Amin MD CHEMISTRY & BLOOD GAS ORD ERABLES Final Result Performing Organization Address City/State/[facility] Co de Phone Number [facility] [address] [place] [address] * US ABDOMEN LIMITED (05/31/2023 20:16 EST) Anatomical Region Laterality Modality Abdomen, Body Ultrasound 05/31/2023 20:0 8 EST Impressions 05/31/2023 21:00 EST Hepatic steatosis. No intrahepatic or extrahepatic biliary ductal dilatation. THIS DOCUMENT HAS BEEN ELECTRONICALLY SIGNED BY DAVIS YEPEZ MD FOR ANY QUESTIONS OR CONCERNS REGARDING THIS REPORT PLEASE CALL [facility] AT [phone] Narrative 05/31/2023 21:00 EST PROCEDURE INFORMATION: Exam: US Abdomen, Limited; Right Upper Quadrant Exam date and time: 05/31/2023 8:08 PM Age: 27 years old Clinical indication: Abdominal pain; Epigastric; Additional info: Vomiting, elevated lfts, history of alcohol use disorder TECHNIQUE: Imaging protocol: Real time ultrasound of the abdomen with image documentation. Limited exam focused on the right upper quadrant. COMPARISON: POC LD US UMBILICAL ARTERY DOPPLER 11/29/2021 11:35 AM FINDINGS: Liver: Hepatic steatosis. Gallbladder: Normal. No gallstones. There is no gallbladder wall thickening. ??Absent sonographic Tirado sign. Biliary ducts: CBD caliber is 0.4 cm. Pancreas: Visualized pancreas is unremarkable. Right kidney: Normal. No mass. No hydronephrosis. Procedure Note Davis Yepez MD - 05/31/2023 PROCEDURE INFORMATION: Exam: US Abdomen, Limited; Right Upper Quadrant Exam date and time: 05/31/2023 8:08 PM Age: 27 years old Clinical indication: Abdominal pain; Epigastric; Additional info: Vomiting, elevated lfts, history of alcohol use disorder TECHNIQUE: Imaging protocol: Real time ultrasound of the abdomen with image documentation. Limited exam focused on the right upper quadrant. COMPARISON: POC LD US UMBILICAL ARTERY DOPPLER 11/29/2021 11:35 AM FINDINGS: Liver: Hepatic steatosis. Gallbladder: Normal. No gallstones. There is no gallbladder wall thickening. Absent sonographic Tirado sign. Biliary ducts: CBD caliber is 0.4 cm. Pancreas: Visualized pancreas is unremarkable. Right kidney: Normal. No mass. No hydronephrosis. IMPRESSION Hepatic steatosis. No intrahepatic or extrahepatic biliary ductal dilatation. THIS DOCUMENT HAS BEEN ELECTRONICALLY SIGNED BY DAVIS YEPEZ MD FOR ANY QUESTIONS OR CONCERNS REGARDING THIS REPORT PLEASE CALL [facility] [phone] Magdi Amin [place] [facility] [place] Final R esult * (ABNORMAL) LACTIC ACID WITH REFLEX - USE FOR INITIAL SEPSIS EVALUATION (05/31/2023 17:43 EST) Lactic Acid 3.2(HH) <=2.0 mmol/L 05/31/2023 18:[address] [facility] Blood VENOUS BLOOD / Unknown Venipuncture / Unknown 05/31/2023 17:43 EST 05/31/2023 17:46 EST Magdi Amin MD CHEMISTRY & BLOOD GAS ORD ERABLES Final Result [facility] [address] [place] [address] * BACTERIAL CULTURE, BLOOD (05/31/2023 17:43 EST) Organism ID No Growth at 5 days VITEK SUSCEPTIBILITY 06/05/2023 18:[address] [facility] Blood VENOUS BLOOD / Unknown Venipuncture / Unknown 05/31/2023 17:43 EST 05/31/2023 17:47 EST us Magdi Amin MD MICROBIOLOGY - GENERAL OR DERABLES Final Result Performing Organization Address [facility] Co de Phone Number [facility] [address] [place] [address] * BACTERIAL CULTURE, BLOOD (05/31/2023 17:43 EST) Organism ID No Growth at 5 days VITEK SUSCEPTIBILITY 06/05/2023 18:[address] [facility] Blood VENOUS BLOOD / Unknown Venipuncture / Unknown 05/31/2023 17:43 EST 05/31/2023 17:47 EST us Magdi Amin MD MICROBIOLOGY - GENERAL OR DERABLES Final Result Performing Organization Address [facility] Co in Phone [facility] [address] [place] [address] * HOLD GREEN TOP (05/31/2023 17:42 EST) Hold Hold 05/31/2023 19:[address] [facility] Blood VENOUS BLOOD / Unknown Venipuncture / Unknown 05/31/2023 17:42 EST 05/31/2023 17:47 EST us Magdi Amin MD LAB INFO SERVICE AND SUPP ORT & PHONE RESULT Final Result Performing Organization Address City/[facility] Co de Phone Number [facility] [address] [place] [address] * HOLD BLUE TOP (05/31/2023 17:42 EST) Hold Hold 05/31/2023 19:[address] [facility] Blood VENOUS BLOOD / Unknown Venipuncture / Unknown 05/31/2023 17:42 EST 05/31/2023 17:47 EST us Magdi Amin MD LAB INFO SERVICE AND SUPP ORT & PHONE RESULT Final Result Performing Organization Address City/[facility]/ZIP Co de Phone Number [facility] [address] [place] [address] * HOLD LAVENDER TOP (05/31/2023 17:42 EST) Hold Hold 05/31/2023 19:[address] [facility] Blood VENOUS BLOOD / Unknown Venipuncture / Unknown 05/31/2023 17:42 EST 05/31/2023 17:47 EST us Magdi Amin MD LAB INFO SERVICE AND SUPP ORT & PHONE RESULT Final Result Performing Organization Address [facility] Co de Phone Number [facility] [address] [place] [address] * C REACTIVE PROTEIN (05/31/2023 17:42 EST) C-Reactive Protein 5.2 <10.0 mg/L 05/31/2023 18:[address] [facility] Blood VENOUS BLOOD / Unknown Venipuncture / Unknown 05/31/2023 17:42 EST 05/31/2023 17:47 EST us Magdi Amin MD CHEMISTRY & BLOOD GAS ORD ERABLES Final Result Performing Organization Address [facility]/ZIP Co de Phone Number [facility] [address] [place] [id number] * (ABNORMAL) LIPASE (05/31/2023 17:42 EST) Lipase 369(H) <251 U/L 05/31/2023 19:[address] [facility] Blood VENOUS BLOOD / Unknown Venipuncture / Unknown 05/31/2023 17:42 EST 05/31/2023 17:55 EST us Magdi Amin MD CHEMISTRY & BLOOD GAS ORD ERABLES Final Result Performing Organization Address [facility]/ZIP Co de Phone Number [facility] [address] [place] [address] * BHCG SCREEN, (05/31/2023 17:42 EST) [facility] Beta HCG Qualitative, Negative Negative 05/31/2023 18:[address] [facility] Blood VENOUS BLOOD / Unknown Venipuncture / Unknown 05/31/2023 17:42 EST 05/31/2023 17:55 EST Magdi Amin MD CHEMISTRY & BLOOD GAS ORD ERABLES Final Result Performing Organization Address City/[facility]/ZIP Co de Phone Number [facility] [address] [place] [address] * PHOSPHORUS (05/31/2023 17:42 EST) [facility] Phosphorus 3.0 2.5 - 4.5 mg/dL 05/31/2023 19:[address] [facility] Blood VENOUS BLOOD / Unknown Venipuncture / Unknown 05/31/2023 17:42 EST 05/31/2023 17:55 EST Magdi Amin MD CHEMISTRY & BLOOD GAS ORD ERABLES Final Result Performing Organization Address City/[facility]/ZIP Co de Phone Number [facility] [address] [place] [address] * MAGNESIUM (05/31/2023 17:42 EST) [facility] Magnesium 1.9 1.7 - 2.8 mg/dL 05/31/2023 19:[address] [facility] Blood VENOUS BLOOD / Unknown Venipuncture / Unknown 05/31/2023 17:42 EST 05/31/2023 17:55 EST Magdi Amin MD CHEMISTRY & BLOOD GAS ORD ERABLES Final Result Performing Organization Address City/[facility]/ZIP Co de Phone Number [facility] [address] [place] [address] * (ABNORMAL) ETHANOL, BLOOD (05/31/2023 17:42 EST) [facility] Ethanol, Blood 329(H) <10 mg/dL mg/dL 05/31/2023 19:22 [facility] Comment:Healthy, non-drinkin g individuals will have an ethanol concentration of <10 mg/dL. Blood VENOUS BLOOD / Unknown Venipuncture / Unknown 05/31/2023 17:42 EST 05/31/2023 17:[address] [facility] - 05/31/2023 19:22 [facility] legal blood alcohol limit = 80 mg/dl (0.08%) us Magdi Amin MD CHEMISTRY & BLOOD GAS ORD ERABLES Final Result [facility] [address] [place] [address] * (ABNORMAL) COMPREHENSIVE METABOLIC PANEL (CMP) (05/31/2023 17:42 EST) Sodium 145 136 - 145 mmol/L 05/31/2023 19:14 [facility] Potassium 4.0 3.5 - 5.0 mmol/L 05/31/2023 19:14 [facility] Chloride 105 96 - 110 mmol/L 05/31/2023 19:14 [facility] CO2 Total 24 22 - 32 mmol/L 05/31/2023 19:14 [facility] Glucose 115(H) 70 - 99 mg/dl 05/31/2023 19:14 [facility] BUN 6(L) 10 - 26 mg/dL 05/31/2023 19:14 [facility] Creatinine 0.80 0.52 - 1.04 mg/dL 05/31/2023 19:14 [facility] eGFR 104 >60 mL/min/1.7 3m2 05/31/2023 19:14 [facility] Total Protein 7.8 6.3 - 8.2 g/dL 05/31/2023 19:14 [facility] Albumin 4.2 3.4 - 4.9 g/dL 05/31/2023 19:14 [facility] Alkaline Phosphatase 116 38 - 126 U/L 05/31/2023 19:14 [facility] AST 241(H) 15 - 46 U/L 05/31/2023 19:14 [facility] ALT 82(H) <35 U/L 05/31/2023 19:14 [facility] Bilirubin, Total 0.6 <1.4 mg/dL 05/31/20 19:14 [facility] Calcium 8.4(L) 8.5 - 10.5 mg/dL 05/31/2023 19:14 [facility] Albumin/Globulin Ratio 1.2 1.0 - 2.5 g/dL 05/31/2023 19:14 [facility] Anion Gap 16(H) 5 - 14 mmol/L 05/31/2023 19:14 [facility] Blood VENOUS BLOOD / Unknown Venipuncture / Unknown 05/31/2023 17:42 EST 05/31/2023 17:55 EST us Magdi Amin MD CHEMISTRY & BLOOD GAS ORD ERABLES Final Result [facility] [address] [place] [address] * (ABNORMAL) COMPLETE BLOOD COUNT AND DIFFERENTIAL (05/31/2023 17:42 EST) WBC 5.19 4.00 - 12.40 K/cmm 05/31/2023 17:58 [facility] RBC 4.69 3.86 - 5.04 M/cmm 05/31/2023 17:58 [facility] Hemoglobin 15.6(H) 11.6 - 15.2 g/dL 05/31/2023 17:58 [facility] HCT 45.4(H) 34.9 - 44.4 % 05/31/2023 17:58 [facility] MCV 97 81 - 98 fL 05/31/2023 17:58 [facility] MCH 33.3 26.7 - 33.3 pg 05/31/2023 17:58 [facility] MCHC 34.4 32.1 - 35.9 g/dL 05/31/2023 17:58 [facility] RDW-CV 12.2 <14.7 % 05/31/2023 17:58 [facility] RDW-SD 43.5 <50.4 fl 05/31/2023 17:58 [facility] PLT 215 141 - 377 K/cmm 05/31/2023 17:58 [facility] MPV 9.3(L) 9.5 - 12.7 fL 05/31/2023 17:58 [facility] % Neutrophils 68.0 % 05/31/2023 17:58 [facility] % Lymphocytes 22.7 % 05/31/2023 17:58 [facility] % Monocytes 7.7 % 05/31/2023 17:58 [facility] % Eosinophils 0.4 % 05/31/2023 17:58 [facility] % Basophils 1.0 % 05/31/2023 17:58 [facility] % Immature Grans 0.2 % 05/31/20 17:58 [facility] Absolute Neutrophils 3.53 2.20 - 8.85 K/cmm 05/31/2023 17:58 [facility] Absolute Lymphocytes 1.18 1.09 - 3.30 K/cmm 05/31/2023 17:58 [facility] Absolute Monocytes 0.40 0.10 - 0.80 K/cmm 05/31/2023 17:58 [facility] Absolute Eosinophils 0.02(L) 0.03 - 0.61 K/cmm 05/31/2023 17:58 [facility] ABS Basophils 0.05 0.01 - 0.11 K/cmm 05/31/2023 17:58 [facility] Absolute Immature Grans 0.01 0.00 - 0.06 K/cmm 05/31/2023 17:58 [facility] Type of Differential: Auto 05/31/2023 17:58 [facility] Blood VENOUS BLOOD / Unknown Venipuncture / Unknown 05/31/2023 17:42 EST 05/31/2023 17:53 EST us Magdi Amin MD PACKAGES [employer] DNA PROBE SHAYLEE MCGILL Final Result [facility] [address] [place] [address] * EKG 12-LEAD (05/31/2023 16:47 EST) 05/31/2023 16:[address] [facility] - 06/07/2023 20:09 EST ? [facility] ? Test Date: ?2023-05-31 Pat Name: ? DESAREA SALLS ?Department: ? Room: ? Gender: ? Female ? Health Care Administrator: ?? RL : ?1995 ? Requested By: ALIVIA Pantoja Order Number: [id number] ? Brittany WALLS: ?? CLAY NUÑEZ MD ? Measurements Intervals ?[place] ? Rate: ? 100 ?P: ?38 [place]: ? 144 ?QRS: ?3 QRSD: ? 102 ?T: ?52 QT: ? 358 ? QTc: ?461 ? Interpretive Statements Normal sinus rhythm Incomplete right bundle branch block Compared to ECG 03/24/2023 20:09:50 Incomplete right bundle-branch block now present Sinus arrhythmia no longer present Prolonged QT interval no longer present I reviewed the tracing and have either agreed or edited the findings in this report. Electronically Signed On 06-07-2023 20:09:13 EST by CLAY NUÑEZ MD. Procedure Note Clay Nuñez MD - 06/07/2023 [facility] [place] Test Date: 2023-05-31 Pat Name: FORTINO ROBLES Department: Room: Gender: Female Health Care Administrator: : 1995 Requested By: ALIVIA Pantoja Order Number: [id number] Reading MD: CLAY NUÑEZ MD Measurements Intervals [place] Rate: 100 P: 38 [place]: 144 QRS: 3 QRSD: 102 T: 52 QT: 358 QTc: 461 Interpretive Statements Normal sinus rhythm Incomplete right bundle branch block Compared to ECG 03/24/2023 20:09:50 Incomplete right bundle-branch block now present Sinus arrhythmia no longer present Prolonged QT interval no longer present I reviewed the tracing and have either agreed or edited the findings inthis report. Electronically Signed On 06-07-2023 20:09:13 EST by DANAY WALLS. us Magdi Amin MD CARDIAC ECG ORDERABLES Fi nal Result [facility] documented in this encounter Visit Diagnoses Diagnosis Alcoholic intoxication with complication (HCC-CMS)- Primary Nausea and vomiting, unspecified vomiting type Alcoholic hepatitis without ascites Acute alcoholic hepatitis Alcohol-induced acute pancreatitis, unspecified complication status documented in this encounter Administered Medications Inactive Administered Medications - up to 3 most recent administrations Medication Order MAR Action Action Date Dose Rate Site metoclopramide (REGLAN) injection 10 mg 10 mg, intravenous, NOW X1, 1 dose, On Mon05/31/23 at 1700, STAT Given 05/31/2023 17:08 EST 10 mg PHENobarbital (LUMINAL) 617.5 mg in sodium chloride (NS) 0.9 % 100 mL IVPB 617.5 mg, intravenous, Administer over 30 Minutes, NOW X1, 1 dose, On Mon05/31/23 at 1715, Indication of Use: Alcohol Withdrawal, Cumulative PHENobarbital dose reviewed? Yes - Less than 20 mg/kg, STAT Given 05/31/2023 17:57 EST 617.5 mg sodium chloride 0.9 % BOLUS 1,000 mL 1,000 mL, intravenous, NOW X1, 1 dose, On Mon05/31/23 at 1700, STAT New Bag 05/31/2023 17:08 EST 1,000 mL documented in this encounter Discontinued Medications Medication Sig Discontinue Reason Start Date End Da te penicillin v potassium (VEETID) 500 mg tablet Take 1 Tablet by mouth 4 times daily for 7 days. 05/31/2023 05/31/2023 documented as of this encounter Active and Recently Administered Medications Times are shown in EST. Scheduled Medication Order 05/29/2023 05/30/2023 05/31/2023 metoclopramide (REGLAN) injection 10 mg (COMPLETED) 10 mg, intravenous, NOW X1, 1 dose, On Mon05/31/23 at 1700, STAT 1708 (Given - Provid er: Gala Perez RN) PHENobarbital (LUMINAL) 617.5 mg in sodium chloride (NS) 0.9 % 100 mL IVPB (COMPLETED) 617.5 mg, intravenous, Administer over 30 Minutes, NOW X1, 1 dose, On Mon05/31/23 at 1715, Indication of Use: Alcohol Withdrawal, Cumulative PHENobarbital dose reviewed? 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
--- OUTSIDE RECORDS SUMMARY | 2024-07-06 18:47 | XMS_ITS | Encounter Summary ---
Author Organization [facility] Address [address] [place] [address] Care Team Providers Care Machine Design Engineer Name Role Phone None, Provider Primary Care Provider Unavailabl e Encounter Details Date Type Department Care Team (Latest Contact Info) Description 03/24/2023 Travel Social History Tobacco Use Types Packs/Day [...] have money to get more. Sometimes true [place] Depression Scale Answer Date Recorded [place] Depression Scale Total 9 05/16/2022 The thought [...] on filedocumented in this encounter Care Teams Machine Design Engineer Relationship Specialty Start Date End Date None, Provider PCP - General 09/16/22 05/23/23 documented as of this encounter
--- OUTSIDE RECORDS SUMMARY | 2024-07-06 18:47 | XMS_ITS | Encounter Summary ---
Author Organization [facility] Address [address] [place] [address] Care Team Providers Care Pmo Analyst Name Role Phone Trevon Boyd MD Primary Care Provider Eliza Rain MD Unavailable [phone] Dona Casper [facility] Unavailable Reason for Referral * Consult (Routine/Next Available) - Closed Specialty Diagnoses / Procedures Referred By Ferny t Referred To Contact Obstetrics & Gynecology Diagnoses Encounter for other contraceptive management Ric Dyer MD Phone: tel: fax: [facility] OBGYN [address] [place] [id number] Phone: tel: fax: Referral ID Status Reason Start Date Expiration Date V isits Requested Visits Authorized [id number] Closed Specialty Services Required 06/21/2023 1 1 Question Answer Reason for Request: Follow-up for contraceptive and preventative health care Reason for Visit * Reason Comments Abdominal Pain Pt c/o upper abdomin al pain with nausea and vomiting since last night. Pt states she has had vomiting for weeks. Pt c/o shortness of breath. Pt c/o dizziness. * Auth/Cert (Routine) Specialty Diagnoses / Procedures Referred By Ferny t Referred To Contact Diagnoses Pancreatitis, unspecified pancreatitis type Alcohol-induced acute pancreatitis, unspecified complication status Pancreatitis, unspecified pancreatitis type [K85.90] Referral ID Status Reason Start Date Expiration Date Visits Re quested Visits Authorized [id number] 1 1 Encounter Details Date Type Department Care Team (Latest Contact Info) Description 06/17/2023 7:21 EST - 06/21/2023 14:16 [facility] Hospital Encounter [facility] Medical / Surgical Department [address], [place] [id number] Braulio Chapman DO [address] [place] [phone] Roc Oro, DO [address] [place], [place] [id number] Sven Tirado MD [address] [place] [phone] Ric Malave MD [address] [place] [phone] Alcohol-induced acute pancreatitis, unspecified complication status (Primary Dx); Pancreatitis, unspecified pancreatitis type [K85.90]; Alcohol withdrawal syndrome without complication ([facility]) [F10.930]; Encounter for other contraceptive management Discharge Disposition: Home or Self Care Social [...] in a correction (including now)? No 2023 Houghton Depression Scale Answer Date Recorded H[place] Depression Scale Total 9 05/16/2022 The thought [...] Sign Reading Time Taken Comments Blood Pressure 123/86 06/21/2023 1135 EST Pulse 102 06/21/2023 0948 EST Temperature 36.7 ??C (98.1 ??F) 06/21/2023 1135 EST Respiratory Rate 16 06/21/2023 1135 EST Oxygen Saturation 94% 06/21/2023 1135 EST Inhaled Oxygen Concentration - - Weight 78.4 kg (172 lb 12.8 oz) 06/17/2023 0716 EST Height 170.2 cm (5' 7) 06/17/2023 0716 EST Body Mass Index 27.06 06/17/2023 0716 EST documented in this encounter Functional Status [...] Serra RN documented in this encounter Discharge Summaries * Ric Dyer MD - 06/21/2023 0844 EST HOSPITAL MEDICINE DISCHARGE SUMMARY Primary Care Provider: Trevon Boyd Attending Physician: Gregg Dyer* Admit Date: 06/17/23 Discharge Date: 06/21/2023 Disposition (location): Home Condition at Discharge: Improved Reason for Admission (chief complaint): Abdominal pain Principal/Final Diagnosis: Alcohol-induced acute pancreatitis, unspecified complication status Additional Problems Managed in the Hospital: Active Hospital Problems No active problems to display. Resolved Hospital Problems Diagnosis Date Noted Date Resolved *Alcohol-induced acute pancreatitis, unspecified complication status 06/17/2023 06/21/2023 Alcohol withdrawal syndrome without complication ([facility]) 06/19/2023 06/21/2023 Pancreatitis, unspecified pancreatitis type [K85.90] 06/17/2023 06/21/2023 Transition of care: [facility] Transition of Care report automatically routed to PCP office on discharge.Additional handoff communication performed via: [employer] Staff Message Clinical Issues Needing Follow-up 1. Pertinent medication changes: --Pantoprazole 40 mg twice daily for 1 week followed by once daily for 3 weeks then as needed --Refill for the patient's gabapentin 2. Recommended follow-up tests/procedures needed: --Follow-up with CPR AMBULANCE DRIVER for contraceptive management and preventative health screening 3. Anticoagulation on discharge: No 4. Changes to goals of care at time of discharge (if applicable): None Hospital Course: Patient 28-year-old woman with alcohol use disorder, hepatitis C, chronic pain maintained on methadone, episodic mood disorder, prior pancreatitis who presented on June 17 with abdominal pain in the setting of ongoing alcohol use disorder. The patient was admitted to the hospitalist service received IV pain control as well as IV fluids over the course of her hospitalization thepain slowly improved at the day of discharge she noted that the methadone was helping with the painthough this lasted about 6 hours and then was described as a 4 or 5 out of 10. Her diet was advanced without incidence and she is on a regular diet at the time of discharge. The patient's nurse with [facility]center consultant consulted please see her note for full details and recommended ongoing contraceptive therapy with Depo-Provera. The patient's hCG was negative and 150 mg Depo-Proverashot was administered prior to discharge the patient was counseled any intercourse should have protection with condoms for at least 1 week and expressed understanding with this plan. The patient will follow-up with the women's clinic in 4 to 6 weeks. For alcohol use disorder the patient was counseled on the connection and alcohol use disorder and pancreatitis she expressed good understanding and interest in abstaining from alcohol completely. Shewas encouraged to continue to seek support via her math coach. I provided a refill prescriptionfor her existing gabapentin and reviewed other options naltrexone is contraindicated secondary to the methadone we did discuss Antabuse which the patient declined. Relevant Imaging/Procedures Performed: None Results Pending at Discharge: Test results still pending from this admission Procedure Component Value Units Date/Time HCV RNA Detect Quant [[id number]] Collected: 06/20/23 0636 Lab Status: In process Specimen: Blood, Venous Updated: 06/20/23 0714 Upcoming Appointments Jun 23, 2023 16:15 (Arrive by 16:00) Established Patient Visit with Trevon Boyd MD [facility] (--) [address] , [facility] [address] I personally spent > 30 minutes reviewing the chart, evaluating and examining the patient, counseling and preparing the patient for discharge, and coordinating follow up. Ric Dyer MD 06/21/2023 8:44 documented in this encounter Discharge Instructions * Attachments The following attachments cannot be sent through Care Everywhere. * Pancreatitis (Ku[place]i) * Alcohol Withdrawal: General Info (Ku[place]i) * Pancreatitis: Acute: General Info (Ku[place]i) documented in this encounter Medications at Time of Discharge methadone (DOLOPHINE) 10 mg tablet Take 13.5 Tablets by mouth daily. pantoprazole (PROTONIX) 40 mg tablet Take 1 Tablet by mouth every 12 hours. Take twice per day for 1 week then once per day for 3 weeks then stop, resume once per day as needed for acid refulx 60 Tablet 1 06/21/2023 gabapentin (NEURONTIN) 300 mg capsule Take 1 Capsule by mouth 3 times daily. 90 Capsule 3 06/21/2023 12/06/2023 documented as of this encounter Ordered Prescriptions Prescription Sig Dispense Quantity Refills Last Filled Start Date End Date pantoprazole (PROTONIX) 40 mg tablet Take 1 Tablet by mouth every 12 hours. Take twice per day for 1 week then once per day for 3 weeks then stop, resume once per day as needed for acid refulx 60 Tablet 1 06/21/2023 gabapentin (NEURONTIN) 300 mg capsule Take 1 Capsule by mouth 3 times daily. 90 Capsule 3 06/21/2023 documented in this encounter Discharge Disposition Disposition Code Departure Means Destination Comment s Home or Self [facility] documented in this encounter Progress Notes * Jaki Noble, ALLEN - 06/21/2023 1416 EST Nursing Discharge Note D: Patient noted with discharge orders to: home. A: Prescriptions faxed to pharmacy. Reviewed discharge instructions and prescriptions with Patient. IV d/c'd. Belongings collected and sent home with patient. R: Patient verbalized understanding of discharge instructions and denied further questions. Jaki Noble RN 06/21/2023 14:45 * Linda Cervantes RN - 06/21/2023 1333 EST DC Destination and with who: Home with [facility] services. If [facility], Level of Care: n/a Client and/or Family Aware and in Agreement with the dc plan: Client in agreement with discharge plan IM Issued: n/a Community Service Referrals and Agency: [facility] services Was the Agency/Person Notified, Who, Contact Info?: n/a Any New Equipment/What Type and from where?: n/a Mode of Transportation and Agency: Family Last dose letter faxed to [facility] * Dona Casper APRN - 06/20/2023 2103 EST Karin is a 28 yr old female with current hospitalization for acute pancreatitis and pancreatitis.Hospitalist requested that I see this client, well known to me from care at [facility]. I received notification that was admitted to [facility] hospital and reached out to the hospitalist regarding helping Karin resume contraception prior to discharge. As Karin is keen to resume a contraceptive method, I went to see her today to discuss. Last office visit with me 09/21/2022 for contraception. At the time she was undergoing tx for chronic hepatitis C and for that reason, we were opting for a progestin bearing method. Was also having some migraines. At present - same male partner, Zeb. Getting periods monthly. Has just started spotting and suspects will begin menses any day Not interested in becoming in the next year. Desires a reliable method. Not interested in LARC method - not comfortable with device inside her body at this time. Would be interested in a method that would improve her bleeding pattern - aware that given recent elevated BP, pancreatitis and GI sxs - do not recommend estrogen at this time. As her health improvesand BP normalizes, recommend that we revisit the options. Given last intercourse 2 wks ago, I recommend the following quick start method: 1) check urine HCG 2) provided HCG is negative, give depo provera 150 mg IM x 1 3) no sex or condoms for 7 days - then contraception will be effective 4) recommend f/u with PCP or women's health in 12 weeks for repeat depo provera, or alternative method. Also due for routine annual exam visit. Overdue for pap. Dona Casper CNM, DIRECTOR TITLE Certified Nurse Cementer Helper & Family Nurse Practitioner [facility] * Sven Tirado MD - 06/20/2023 6284 EST MEDICINE PROGRESS NOTE Reason for Admission Karin was admitted with a chief complaint of abdominal pain whose principal diagnosis is acute pancreatitis Date of Admission 06/17/23 Overnight Events No issues overnight SUBJECTIVE Karin reports continued improvement in pain Review of Systems Complete review of systems was performed and was negative except as noted above OBJECTIVE Vital signs remain notable for borderline tachycardia and slightly elevated blood pressure CBC and chemistry are unremarkable Physical Exam General: Alert, no distress Psychologic: Mood and affect normal CVS: S1, S2, no mrg Extremities: No edema Respiratory: No wheezes of crackles GI: BS present. Soft, mild tenderness to palpation in epigastric area, which radiates to back Neurologic: Alert and oriented x3, no focal deficit appreciated Integument: No lesions MSK: Able to move all extremities without difficulty ASSESSMENT Karin Robles is a 28 year-old female with alcohol use, hepatitis C infection s/p treatment, chronic pain on methadone, episodic mood disorder, prior episodes of pancreatitis. She was admitted on 06/17 for treatment of acute pancreatitis. In the first 24 hours pain was severe,so SIMULATION SOFTWARE ENGINEER hydromorphone infusion was started. On 06/19, she was switched to IVP hydromorphone. PRINCIPAL PROBLEMS # Acute pancreatitis likely due to alcohol use # Opiate use disorder, now on methadone # Suspected alcohol-induced gastritis Switch to PO PRN hydromorphone. Two further doses of PO ketorolac ordered Continue TOWER EXCAVATOR OPERATOR methadone 135 mg daily, gabapentin TID Advance to regular diet. Switch to PO pantoprazole 40 mg BID for possible gastritis assistant basketball coach to see Ms. Robles on 06/20 Plan for discharge on 06/21, assuming symptoms remained well controlled after switch to oral opiatesand resuming regular diet # Alcohol use Alcohol level undetectable on admission, last drink at just after midnight on 06/17, drinks ~ 1 literof vodka daily, no previous seizures or delirium tremens Stop CIWA monitoring, no signs of complicated withdrawal since admission or previously Continue folate, multivitamin, thiamine. assistant basketball coach planning to see Ms. Robles on afternoon of 06/20 OTHER CONDITIONS # Insomina: Melatonin, PRN benadryl # Hypokalemia and hypomagnesemia, normalized: Monitor # Contraception: Women's Health team has seen Karin while in hospital and are discussing contraceptive options with her, input appreciated # HCV: Outpatient pharmacist requested HCV RNA level to document clearance of HCV following treatment n 2022, HCV RNA in process, outpatient follow-up MISCELLANEOUS # Full code # VTE Prophylaxis: SC enoxaparin # Regular diet # Plan for discharge on 06/21, assuming symptoms remained well controlled after switch to oral opiates and resuming regular diet On this date, I spent 53 minutes caring for this patient. This time was spent reviewing the patient's medical chart; reviewing laboratory and imaging results; planning treatment; examining, evaluating, and counselling the patient; co- ordinating care across different hospital departments and services; placing orders; and discharge planning. * Divina Duong - 06/20/2023 1418 EST Spiritual Care Department Drug Abuse Worker Note Re: Karin Robles : 1995 Room: 242/242-02 Service: Adult Hospital Medicine Cheondoism: None Karin has received a visit from the Spiritual Care Department on 06/20/2023. Assessment/Comments: Karin was out of bed straightening her room. She has had pancreatitis, which was more painful than childbirth. The meds she is taking are helping significantly with the pain. Karin has a [id number] child at home. Karin's mother is supportive. [employer]GR[employer] Spiritual Care Welcomed End of Life Patient Is Importance Current Support System Level of Support ENCOUNTER DATA Date of Encounter 06/20/23 Time of Encounter Reason for Encounter Initial Visit Referred by Care Level 3 - Some Matter of Substance Reason not visited ENCOUNTER Needs Addressed Drug Abuse Worker Support Interventions Support Sacraments Provided Date of Anointing Communion Date of Communion Date of Protestant OUTCOME Outcome Stress Level Outcome of Encounter Patient Satisfied CARE PLAN Plan No Support Needed Consult With Additional Support Was Clergy Needed? , TIME STAMP: Total time spent 5 minutes in direct floor time; >50% of time was spent in spiritualcare. Divina Duong 06/20/2023 14:18 * Sven Tirado MD - 06/19/2023 5502 EST MEDICINE PROGRESS NOTE Reason for Admission Karin was admitted with a chief complaint of abdominal pain whose principal diagnosis is acute pancreatitis Date of Admission 06/17/23 Overnight Events No issues overnight SUBJECTIVE Karin reports improved pain Review of Systems Complete review of systems was performed and was negative except as noted above OBJECTIVE Vital signs remain notable for borderline tachycardia and slightly elevated blood pressure Chemistry is notable for potassium level of 3.5 and 1.8, transaminases continue to improve CBC is unremarkable Physical Exam General: Alert, no distress Psychologic: Mood and affect normal CVS: S1, S2, no mrg Extremities: No edema Respiratory: No wheezes of crackles GI: BS present. Soft, mild tenderness to palpation in epigastric area, which radiates to back Neurologic: Alert and oriented x3, no focal deficit appreciated Integument: No lesions MSK: Able to move all extremities without difficulty ASSESSMENT Karin Robles is a 28 year-old female with alcohol use, hepatitis C infection s/p treatment, chronic pain on methadone, episodic mood disorder, prior episodes of pancreatitis. She was admitted on 06/17 for treatment of acute pancreatitis. In the first 24 hours pain was severe,so SIMULATION SOFTWARE ENGINEER hydromorphone infusion was started. On 06/19, she was switched to IVP hydromorphone. PRINCIPAL PROBLEMS # Acute pancreatitis likely due to alcohol use # Suspected alcohol-induced gastritis Start PRN IVP hydromorphone 2 mg and 1 mg Q 2 hours. PRN ondansetron. Stop SIMULATION SOFTWARE ENGINEER hydromorphone. Two further doses of ketorolac ordered Advance diet as tolerated, continue IV fluids until oral intake approaches normal amount Start IVP pantoprazole 40 mg BID # Alcohol use # Possible alcohol-induced gastritis Alcohol level undetectable on admission, last drink at just after midnight on 06/17, drinks ~ 1 literof vodka daily, no previous seizures or delirium tremens CIWA with PRN diazepam - on 06/19 no sign of withdrawal (in past ~ 24 hours has received 25 mg of diazepam) Continue folate, multivitamin, thiamine Start IVP pantoprazole BID OTHER CONDITIONS # Opiate use: Continue methadone 135 mg daily, gabapentin TID # Insomina: Melatonin # Hypokalemia and hypomagnesemia, normalized: Monitor # Contraception: Women's Health team has seen Karin in hospital and are discussing contraceptive options with her, input appreciated # HCV: Outpatient pharmacist requested HCV RNA level to document clearance of HCV following treatment. Test ordered for 06/19 MISCELLANEOUS # Full code # VTE Prophylaxis: SC enoxaparin # Full liquid diet, advance as tolerated # Discharge Plan: MYCHAL of 06/20 On this date, I spent 57 minutes caring for this patient. This time was spent reviewing the patient's medical chart; reviewing laboratory and imaging results; planning treatment; examining, evaluating, and counselling the patient; co- ordinating care across different hospital departments and services; placing orders; and discharge planning. * Sven Tirado MD - 2023 2225 EST MEDICINE PROGRESS NOTE Reason for Admission Karin was admitted with a chief complaint of abdominal pain whose principal diagnosis is acute pancreatitis Date of Admission 06/17/23 Overnight Events SIMULATION SOFTWARE ENGINEER dilaudid infusion started for adequate pain control SUBJECTIVE Karin reports improved pain Review of Systems Complete review of systems was performed and was negative except as noted above OBJECTIVE Vital signs are notable for borderline tachycardia and slightly elevated blood pressure Chemistry is notable for potassium level of 3.4 and 1.4, improving transaminases CBC is unremarkable Physical Exam General: Alert, no distress Psychologic: Mood and affect normal CVS: S1, S2, no mrg Extremities: No edema Respiratory: No wheezes of crackles GI: BS present. Soft, non-tender Neurologic: Alert and oriented x3, no focal deficit appreciated Integument: No lesions MSK: Able to move all extremities without difficulty ASSESSMENT Karin Robles is a 28 year-old female with alcohol use, chronic hep c infection, episodic mood disorder, prior episodes of pancreatitis. She was admitted on 06/17 for treatment of acute pancreatitis. In the first 24 hours pain was severe,so SIMULATION SOFTWARE ENGINEER hydromorphone infusion was started. presenting with abominal pain secondary to acute pancreatitis. PRINCIPAL PROBLEMS # Acute pancreatitis likely due to alcohol use Start PRN IVP hydromorphone 1.5 mg and 1 mg Q 2 hours. PRN ondansetron Stop continuous rate on pump, leave patient-controlled doses and PRN bolus orders. Plan to transition off SIMULATION SOFTWARE ENGINEER pump completely in next 12-24 hours. Start clear liquid diet, advance as tolerated, continue IV fluids until oral intake approaches normal amount # Alcohol use Alcohol level undetectable on admission, last drink at just after midnight on 06/17, drinks ~ 1 literof vodka daily, no previous seizures or delirium tremens Continue CIWA with PRN diazepam - on morning of 06/18 she had slight tremors in hands, otherwise no sign of withdrawal (in past ~ 24 hours has received 15 mg diazepam) Continue folate, multivitamin, thiamine # Hypokalemia and hypomagnesemia Replenish and recheck OTHER CONDITIONS # Opiate use: Continue methadone 135 mg daily, gabapentin TID # Insomina: Melatonin MISCELLANEOUS # Full code # VTE Prophylaxis: SC enoxaparin # Clear liquid diet, advance as tolerated # Discharge Plan: MYCHAL of 06/19 or 06/20 On this date, I spent 61 minutes caring for this patient. This time was spent reviewing the patient's medical chart; reviewing laboratory and imaging results; planning treatment; examining, evaluating, and counselling the patient; co- ordinating care across different hospital departments and services; placing orders; and discharge planning. * Farheen Nguyen - 2023 1150 EST Initial Case Management/Social Work Assessment and Discharge Plan/Readmission Risk Assessment REASON FOR ADMISSION: Alcohol-induced acute pancreatitis, unspecified complication status Patient understands reason for admission: Yes PATIENT INFO VERIFIED: PCP, Contact Info, Address Type of housing (single family, condo, apartment, correction, single room occupancy, [facility] funded hotel room, group correction) - Apartment, second floor Who does the patient live with? Significant other and 16 month old baby Does the patient have access to their own bedroom/bathroom/kitchen - or is it shared with others? Shared Name of housing complex (ex [facility], [facility], etc)- n/a Housing Authority/Managing Organization - n/a Community Care Providers (lead case manager, [facility] nurse, etc) name and contact information- n/a LIVING ARRANGEMENTS AND ACCESSIBILITY ISSUES: Living Arrangements: Spouse / significant other Levels: 1 Stairs to enter: (full flight of stairs) Handicap access: Railings into home Bathroom located on bedroom level?: Yes What in home social supports are available to the patient? Spouse / significant other Is 02/01 care available? No ADVANCED DIRECTIVES, POA &/or COLST IN PLACE: Healthcare Directive: No, patient does not have advance directive for healthcare treatment Information Provided on Healthcare Directives: No Information on Healthcare Directives Requested: No DIRECTIVES FOR FINANCES: Directive For Finances: No TRANSPORTATION: Transportation: Family Does the patient need discharge transport arranged?: No Expected Discharge on IV Antibiotics: No Patient expects to be discharged to: Home CULTURAL, DRUZE and/or LANGUAGE factors affecting health care/discharge planning: Spiritual/Cultural Requests: None Language/Literacy Needs Do you need us to provide any communication aids or devices?: No Insurance Information: Medical Insurance: Yes Type of insurance: Medicaid Medicaid Type: Community Referred to patient financial services: No Nutrition: DISCHARGE RISK ASSESSMENT: None of the above risks identified Total # selected above: Score: Zero Tentative plan to address the risk of re-hospitalization for those at HIGH MODERATE RISK: RAPT TOOL: Age: 50-65 Gender: Female Ambulation distance: 2 or more blocks (600ft) Gait device: None Community Services: Home health, [facility], [facility]-none of one time a week Will you live with someone who will care for you?: Yes RAPT Tool Score: 11 Patient expects to be discharged to: Home SBIRT: FUNCTIONAL STATUS: Activities patient requires assistance: None Assistive Devices: None COMMUNITY RESOURCES/SUPPORTS: Primary Care Provider: Trevon Boyd PCP Verified: Specialists: None Type of Home Health Services: None DME Provider: Pharmacy: [id number] - [place], [place] - [address] [facility] AT SEC OF [facility] & [facility] [address] [facility] [id number] [facility] - [place], [place] - [address] [address] [facility] - [place] - [address] [facility] [address] [facility] [address] Home Health: Other: Mental Health Services POST HOSPITAL TRANSITION PLAN: Patient confirmed demographics, contacts, PCP, and pharmacy. No advance directive and no interest at this time. She lives in a second floor apartment with her significant other and 16 month old baby.There is a full flight of stairs with railing to enter. Patient is independent with ADLs and ambulation. No DME. She sees Jenniffer through [facility]. No interest in home health at discharge. [facility] Patient has no MYCHAL currently. Her significant other will transport when ready. She wants to meet with a [facility], but would prefer tomorrow. CM made them aware. CM will continue to follow. FARHEEN NGUYEN 2023 11:50 * Syl Paz RN - 06/17/2023 4032 EST Karin Robles admitted with ETOH induced pancreatitis from the ED to [id number] via via cart/stretcher. Patient arrives in fair condition. Patient Ambulated: Walked without assistance to bed. BP (!) 146/96 (BP Cuff Location: Left arm, BP Patient Position: Semi fowlers) Temp 36.9 ??C (98.4 ??F) Resp 16 Ht 170.2 cm (67) Wt 78.4 kg (172 lb 12.8 oz) SpO2 99% BMI 27.06 kg/m?? Patient oriented to room, call holt, and items within reach. Second RN Skin Assessment completed with Yana Portillo LPN. See flowsheets for full patient assessment. SYL PAZ RN FOUR EYES SKIN ASSESSMENT Four Eyes skin assessment was performed on admission to the unit by Syl Paz RN and Yana Tovar LPN. Patient has the following devices at the time of this assessment: Peripheral IV. Device related pressure injury present? No All skin intact verified by: Syl Paz RN. Last Jah Score: Instructions: Add LDA for any identified wounds Add [place] image for any suspected PI or non surgical wounds Order wound consult if suspected PI identified If Jah is < or = to 16, initiate Pressure Injury Prevention Bundle ([id number]). 06/17/2023 19:00 * Yana Quintanilla LPN - 06/17/2023 1709 EST Assumed care at 1540, patient alert and oriented x3 able to make needs known. 4 eye skin check completed with this author and Syl Paz RN. She complains of overall pain and abdominal pain, medicated per emar. No report of headache. She has a SIMULATION SOFTWARE ENGINEER pump, see emar for orders, no tele, on Room Air, continuous pulse ox monitoring. Due to placement of IV sites take vitals on left arm only. Has call light within reach. * Jluis Cartagena RT - 06/17/2023 1409 EST Initial Consult Pt denies History of Asthma, COPD or use of any respiratory medications, Pt does not use of CPAP or Home O2 documented in this encounter H&P Notes * Roc Oro DO - 06/17/[address] [facility] Medicine Admission History & Physical Service Date: 06/17/2023 Admit Date: 06/17/2023 7:21 Primary Care Provider: Trevon Boyd Chief Complaint: Abdominal Pain HPI Karin Robles is a 27 y.o. female with PMH of alcohol use, chronic hep c infection, episodic mood disorder, prior episodes of pancreatitis presenting with abominal pain. The patient reports that the pain started getting this morning around midnight. She was drinking alcohol up until that point and then she developed abdominal pain and some nausea. [facility] times in the past two weeks for abdominal pain thought to be due to pancreatitis, however she improved each visit and went home. The pain itself is increased throughout the morning and so she presented to the emergency department. She has had prior pancreatitis in the past several times, although she describes episodes as mild stating that she would come to the ED and received some fluids without any real pain treatment and would feel better enough to go home laterthat day. She reports that this is the worst its ever felt and describes the pain on par with giving to her child. She is a chronic user of alcohol, drinking about 1.5 bottles of vodka every day. She has been doing this for at least the past 6 months and states that there is no particular reason why she continues to drink like this although she is contemplating reducing the amount she drinks or quitting altogether. She has never withdrawn before and she reports that she has never not had alcohol at any given day. Denies any fevers or chills. Initially thought that the nausea was not that bad to warrant any treatment, however after an episode tried to throw up from nausea the pain was excruciating and now she feels otherwise. In addition to the alcohol, she is a chronic opioid user and is currently on 135 mg of methadone asprescribed by the [facility]. She currently uses heroin and fentanyl, although she reports not regularly she does admit to using fentanyl just yesterday. Her preferred route is IV and states that she is clean, unused needles. She does have a history of chronic hepatitis C infection but she reportsthat this was treated at a clinic nearby to the hospital. Review of Systems A complete 10 point ROS was performed and pertinent positive and negative findings listed in HPI, otherwise negative. Subjective/Objective Chart review Past Medical History: Diagnosis Date Anemia Depression Hepatitis Trauma Past Surgical History: Procedure Laterality Date WISDOM TOOTH EXTRACTION Social History Tobacco Use Smoking status: Never Smokeless tobacco: Never Substance Use Topics Alcohol use: Yes Alcohol/week: 42.0 standard drinks of alcohol Types: 42 Standard drinks or equivalent per week Comment: As of 05/2023 about 1 bottle-25 ounces of vodka a day-equates to about 6 servings a day Family History Problem Relation Age of Onset Diabetes Mother *Other(comment) Father alcoholic *Other(comment) Brother at age 17, likely from overdose Cancer Maternal Aunt breast Breast Cancer Maternal Aunt Cancer Maternal Grandmother lung Hypertension Maternal Grandfather Heart Attack Maternal Grandfather No Known Daughter Adopted out Diabetes Maternal Great-Grandmother Stroke Neg Hx Down's Syndrome Neg Hx Sickle Cell Anemia Neg Hx Sickle Cell Trait Neg Hx Clotting Disorder Neg Hx Cystic Fibrosis Neg Hx Intellectual Disability Neg Hx Heart Defect Neg Hx Defects Neg Hx Thalassemia Neg Hx Neural Tube Defect Neg Hx Duncan-Sachs Neg Hx Osvaldo Disease Neg Hx Familial Dysautonomia Neg Hx Muscular Dystrophy Neg Hx Jorge's Chorea Neg Hx Other Inherited Genetic or Chromosomal Disorder Neg Hx Maternal Metabolic Disorder Neg Hx Current Outpatient Medications Medication Instructions acetaminophen (TYLENOL) 1,000 mg, oral, EVERY 8 HOURS PRN gabapentin (NEURONTIN) 600 mg, oral, 3 TIMES DAILY methadone (DOLOPHINE) 135 mg, oral, DAILY VITAMIN PLUS LOW IRON 27 mg iron- 1 mg tablet tablet 1 Tablet, oral, DAILY sertraline (ZOLOFT) 25 mg, DAILY topiramate (TOPAMAX) 25 mg, oral, 2 TIMES DAILY Allergies Allergen Reactions Flagyl [Metronidazole] Nausea And Vomiting Objective VITALS: BP (!) 134/94 Temp 36.9 ??C (98.4 ??F) Resp 18 Ht 170.2 cm (67) Wt 78.4 kg (172 lb 12.8 oz) SpO2 95% BMI 27.06 kg/m?? PHYSICAL EXAM Gen: uncomfortable appearing stated age, lying in bed Head: Normocephalic, atraumatic. Eyes: Sclera anicteric, EOMI CV: Regular, S1, S2, no murmurs Lungs: CTAB without rales, rhonchi or wheezing Abd: Soft, non-distended, tender in all quadrants Ext: No edema, clubbing or cyanosis Neuro: A/Ox3, spontaneously moving all limbs Skin: Warm and dry; no rashes or lesions LABS I have personally reviewed the following: No results for input(s): GLUCOSEFINGE in the last 72 hours. No results found for: HGBA1C Recent Labs 06/17/23 0758 WBC 7.28 RBC 4.91 HGB 16.5* HCT 46.8* MCV 95 PLT 260 Recent Labs 06/17/23 0913 NA 138 K 3.8 CL 100 CO2 28 BUN 8* CREATININE 1.02 Recent Labs 06/17/23 0913 ALKPHOS 117 AST 165* ALT 87* TBIL 1.5* LIPASE 3,000* NEW IMAGING I have personally reviewed the following: CT ABDOMEN PELVIS W CONTRAST Result Date: 06/17/2023 Acute pancreatitis. Hepatic steatosis. THIS DOCUMENT HAS BEEN ELECTRONICALLY SIGNED BY TRAVIS LINARES MD FOR ANY QUESTIONS OR CONCERNS REGARDING THIS REPORT PLEASE CALL [facility] AT [phone] US ABDOMEN LIMITED Result Date: 05/31/2023 Hepatic steatosis. No intrahepatic or extrahepatic biliary ductal dilatation. THIS DOCUMENT HAS BEEN ELECTRONICALLY SIGNED BY JAYLEEN YA MD FOR ANY QUESTIONS OR CONCERNS REGARDING THIS REPORT [facility] AT [phone] EKG Normal sinus rhythm with sinus arrhythmia Incomplete right bundle branch block Prolonged QT Assessment Karin Robles is a 27 y.o. female with a history significant for alcohol use, chronic hep c infection, episodic mood disorder, prior episodes of pancreatitis presenting with abominal pain secondary to acute pancreatitis. Given the patient's history of alcohol use, and prior episodes of acute pancreatitis, along with the abdominal pain in the pancreatic inflammation seen on the abdominal CT scan I do think pancreatitis is the most likely cause of her abdominal pain. No kidney stones are seen, no diverticulitis, no are her transaminases elevated thanks and take anything for some alcoholic hepatitis contributing to the pain. I explained to the patient that fluids and pain control would be the mainstay of treatmentfor the next 24 to 48 hours however her use of methadone will complicate this. She may require the use of a SIMULATION SOFTWARE ENGINEER pump to adequately manage her pain. Given the lack of duct dilation on CT scan, no needfor repeat RUQUS at this time. Admitted to the hospital medicine service with problems as listed below. Principal Problem: Pancreatitis, unspecified pancreatitis type Plan by problem # Acute Pancreatitis - LDH 379 - Lactate 3.4 - S/p 15mg ketorolac - S/p 4mg IV morphine - S/p 2mg IV Dilaudid - S/p 1L LR - LR 100 ml/hr infusion for next 16 hours - zofran 4mg q8hr prn - Continue home gabapentin 300mg TID - consideration for SIMULATION SOFTWARE ENGINEER pump if no resolution from as needed pain medications as discussed with pharmacy - NPO for now Addendum - Single doses of IV pain meds ineffective, after discussion with pharmacy instituted opioid tolerant Dilaudid SIMULATION SOFTWARE ENGINEER pump. #Alcohol withdrawal # Elevated transaminases - [facility] protocol - multivitamin - thiamine - folate - daily CMP # Substance Use disorder - Verify Methadone dosing with [facility] - hold home methadone for now given PO intolerance and difficulty in pain management with methadonepresent in system - Social work for help with abstinence resources Miscellaneous FEN: DIET NPO TIME SPECIFIED PPx: none Code: Full Code Discharge Plan: home Consults: none Admission Status Inpatient. Anticipated duration of hospitalization is greater than two midnights due to pancreatitis, alcohol withdrawal. I spent a total of 62 minutes on the date of this encounter meeting with the patient and reviewing documentation/coordinating care as described in the above note. This note was written with voice recognition software thus please excuse any inadvertent misspellings or errors. Roc Oro DO 06/17/2023 13:15 documented in this encounter ED Notes * Kimberly Ramírez RN - 06/17/2023 [address] Driver left a note for math coach team to see patient. Patient amenable to talking with recovery coaches when she is feeling less pain. * Kimberly Ramírez RN - 06/17/2023 1459 EST Last drink at 0000 on 06/17/22. Pt states she has never withdrawn from alcohol before that she is aware of. * Kimberly Ramírez RN - 06/17/2023 1158 EST Patient states that she is unable to pee at this time. RN JUAN DANIELTM, * Kayla Cruz - 06/17/2023 0733 EST 12 Lead EKG Performed by Kayla Cruz and shown to Braulio Chapman DO. * Braulio Chapman DO - 06/17/2023 0708 EST Emergency Department Visit Medical Decision Making 27-year-old female with history of alcohol use disorder, opiate use disorder presenting with epigastric pain due to acute pancreatitis. See HPI Vital signs stable. Afebrile. Normal pulse ox Epigastric tenderness to palpation without peritonitis. She appears uncomfortable but nontoxic and nonseptic Lab profile notable for lipase of 3000, elevated transaminases, remainder of CBC and CMP reassuring, alcohol not detected. CT abdomen pelvis pending Very little pain relief with multiple doses of IV morphine. Case discussed with Dr. Oro of hospitalist service. Stable for admission to medical floor to continue supportive care Relevant Data as of 06/17/23 1139 Sat Jun 17, 2023 0808 EKG: Sinus rhythm rate of 74. Normal axis. Normal NV interval. Incomplete right bundle branch block. QTc of 497. No ischemic ST-T changes. [AF] 0809 WBC: 7.28 [AF] 0809 Hemoglobin(!): 16.5 [AF] 0809 HCT(!): 46.8 [AF] 0809 PLT: 260 [AF] 0952 Ethanol: <10 [AF] 1001 BUN(!): 8 [AF] 1001 Creatinine: 1.02 [AF] 1001 Sodium: 138 [AF] 1001 Potassium: 3.8 [AF] 1001 Glucose, Serum(!): 122 [AF] 1001 AST(!): 165 [AF] 1001 ALT(!): 87 [AF] 1001 Total Alkaline Phosphatase: 117 [AF] 1051 Lipase(!): 3,000 [AF] 1052 Ethanol: <10 [AF] Relevant Data User Index [AF] Braulio Chapman DO An EKG was obtained and independently interpreted.Laboratory data was reviewed. Medical Decision Making Amount and/or Complexity of Data Reviewed Labs: ordered. Risk Prescription drug management. Final diagnoses: None Disposition: No disposition on file Chief complaint: Abdominal pain HPI Karin Robles is a 27 y.o. female with who presents to the ED for chronic recurring abdominal pain.History of alcohol use disorder, opiate use disorder. Her last drink was approximate hour ago. History of chronic recurring pancreatitis. She believes her pancreas is irritated this morning. Associated with 3 episodes of nonbloody nonbilious emesis. No fevers no chills. She describes sharp epigastric pain radiating into her back. History was provided by: Patient Patient's pertinent PMH, FH, SH were reviewed and edited as necessary. Nursing notes reviewed. A medical screening exam was performed. Physical Exam BP 99/61 Temp 36.9 ??C (98.4 ??F) Resp 18 Ht 170.2 cm (67) Wt 78.4 kg (172 lb 12.8 oz) SpO2 94% BMI 27.06 kg/m?? Physical Exam Vitals and nursing note reviewed. Constitutional: General: She is in acute distress. Appearance: Normal appearance. She is not ill-appearing or toxic-appearing. HENT: Head: Normocephalic and atraumatic. Right Ear: External ear normal. Left Ear: External ear normal. Nose: Nose normal. Mouth/Throat: Mouth: Mucous membranes are moist. Eyes: Extraocular Movements: Extraocular movements intact. Pupils: Pupils are equal, round, and reactive to light. Cardiovascular: Rate and Rhythm: Normal rate and regular rhythm. Heart sounds: Normal heart sounds. Pulmonary: Effort: Pulmonary effort is normal. Breath sounds: Normal breath sounds. Abdominal: Palpations: Abdomen is soft. There is no mass. Tenderness: There is abdominal tenderness. There is no guarding or rebound. Musculoskeletal: General: No swelling or deformity. Normal range of motion. Cervical back: Normal range of motion and neck supple. Skin: General: Skin is warm and dry. Neurological: General: No focal deficit present. Mental Status: She is alert and oriented to person, place, and time. Psychiatric: Mood and Affect: Mood normal. Behavior: Behavior normal. Procedures Procedures documented in this encounter Miscellaneous Notes * Plan of Care - Bertha Larry RN - 06/21/2023 0133 EST Problem: Daily Care Plan Goals Goal: Care Plan Documentation Outcome: Ongoing Problem: High Fall Risk: Goal: Patient will Remain Free of Falls due to Med. Side Effects Outcome: Ongoing Problem: Pain: Goal: Pain level will decrease Outcome: Ongoing Problem: Infection: Goal: Signs and symptoms of infection will decrease Outcome: Ongoing Problem: Bowel/Gastric: Goal: Occurrences of nausea will decrease Outcome: Ongoing Goal: Ability to achieve a regular elimination pattern will improve Outcome: Ongoing Problem: Activity: Goal: Energy level will improve Outcome: Ongoing BSR received at 1910, 7/10 pain in abd.Pt understands the po pain med is Q 4 prn and will ring whenit is closer to next dose due. Medicated with po pain meds this shift, see mar. Asked for some toast. R/t hunger.No n/v reported. Call holt within reach. Up ad john paul. At 0530 asked for some ice cream,r/t hunger. Pt understands she can call for breakfast starting at 0630. No nausea reported this shift. * Plan of Care - Moira Rock RN - 06/20/2023 1733 EST Data: Assumed care of pt. At 1500. Pt. Reports 5/10 pain in upper abdomin radiating to back. Pt. Reports no chest pain, no RAMOS, no N/V, no dizziness. VSS Action: Scheduled and PRN medication administered per orders (se emar) with fair effects. Pt. Up tochair. Pt. Independent ambulating to bathroom. Response: PT. Able to rest after PRN pain medication administered. Pt. A/Ox3. Pt. Stable on RA. Pt.Able to make needs known and uses call holt appropriately. Hourly rounding for safety. WCTM. Moira Rock RN 06/20/2023 17:33 * Plan of Care - Jaki Noble RN - 06/20/2023 1640 EST Alert and oriented x 3. Pleasant and cooperative. Has trace ankle edema bilaterally. Abdomen is softly distended with active bowel sounds. C/o upper abdominal pain, radiating to back. Medicated with scheduled methadone and torodol iv and k-pack with good relief. Tolerating regular diet well, denies nausea/vomiting. Medicated x 1 with miralax with apple juice, passing flatus, no stool yet. Ambulated in mercer with standby assist, steady on feet. Voiding qs. CIWA score is 2. At 1330 c/o numbness inleft ring and pinky finger. Able to move fingers, vital signs stable. Dr. Tirado notified. At 1430,states improving, just slight numbness to outside of pinky finger. * Plan of Care - Farheen Glass RN - 06/20/2023 0610 EST Problem: Pain: Goal: Pain level will decrease Outcome: Ongoing Problem: Bowel/Gastric: Goal: Ability to achieve a regular elimination pattern will improve Outcome: Ongoing Problem: Activity: Goal: Energy level will improve Outcome: Ongoing Patient A&Ox3, anxious at times when in pain. Patient scoring between 2-3 on CIWA scale overnight (see flowsheet). Medicated with prn Dilaudid overnight for abdominal, rib and back pain with goodeffect. K pac in place, patient placing over abdomen with some relief. Patient received benadryl atbedtime with her melatonin to help her sleep, however she continues to only sleep intermittently throughout the night. Encouraged patient to get OOB and sit in recliner or walk around to help with pain. Patient declined at first but then agreed to sit in recliner this morning. Abdomen is soft, non-tender but distended. Is passing flatus. Bowel sounds are active in all 4 quadrants. LR completed [id number], patient encouraged to drink fluids. * Plan of Care - Lizet Flores RN - 06/19/2023 1521 EST Data: 28yo/F, admitted 06/17 with acute pancreatitis, severe abd pain, ETOH withdraw Pt is Aox 3, able to use commode, RA, continent BB. Action: Pt on SIMULATION SOFTWARE ENGINEER pump for pain meds, Dc'd this afternoon. LR restarted, protonix added, advancing diet to full liquids, toast and crackers ok. Pt reports feeling constipated, bowel meds given p/MAR. CIWA scored 4 (8am) ,5 (1200) ,3 (1600)- no meds administered Response: call holt within reach, able to make needs known, resting comfortable LIZET FLORES RN 06/19/2023 15:22 Problem: High Fall Risk: Goal: Patient Will Remain Free from Fall-Related Injury Outcome: Ongoing Problem: Pain: Goal: Pain level will decrease Outcome: Ongoing * Plan of Care - Minnie Hoffman - 06/19/2023 1455 EST Problem: Activity: Goal: Energy level will improve 06/19/2023 1455 by Minnie Hoffman Outcome: Ongoing 06/19/2023 1156 by Minnie Hoffman Outcome: Ongoing Data: Admitted 06/17/23 for acute pancreatitis, h/o of substance use disorder, ETOH use disorder, difficulty sleeping since admission, pt reports I have barely slept for more than a few minutes at a time Action: Clustered care tasks, closed curtain, maintained quiet environment, checked on patient hourly for safety & SPO2 checks. Response: Patient slept for several hours during this shift, was able to get out of bed to shower around 4pm. Minnie Hoffman 06/19/2023 14:55 Cosigned by Ankit Solitario, ALLEN at 06/19/2023 18:53 EST * Plan of Care - Farheen Glass RN - 06/19/2023 0401 EST Problem: Pain: Goal: Pain level will decrease 06/19/2023 0301 by Farheen Glass RN Outcome: Ongoing 06/19/2023 0300 by Farheen Glass RN Outcome: Ongoing Problem: Infection: Goal: Signs and symptoms of infection will decrease Outcome: Ongoing Problem: Bowel/Gastric: Goal: Occurrences of nausea will decrease Outcome: Ongoing Patient A&Ox3, anxious at times. Patient scored 16 at beginning of shift on CIWA scale (see flowsheet). Medicated with prn Diazepam per protocol with good effect. Patient scored hourly x8 hours and continues to score below 10 at this time. Remains on SIMULATION SOFTWARE ENGINEER pump with prn Dilaudid administered per orders (see MAR). Patient states her pain has improved as compared to yesterday. MD made aware of elevated BP's and continuous need for hot pack for pain relief, obtained new order for kpac which was applied and effective in relieving some discomfort. No other new orders. Sleeping intermittently through the night. Up to commode x2 with SBA to void. Bowel sounds active in all four quadrants. Abdomen distended, tender. Patient passing flatus. Order for continuous LR completed. * Plan of Care - Lizet Flores RN - 2023 1448 EST Data: 28 yo/F, admitted 06/17 for pancreatitis, substance abuse, abd pain. Pt is Aox 3, SBA to commode, continent BB, RA. Action: electrolyte replacements today (Mag, K, thiamine, folic), SIMULATION SOFTWARE ENGINEER for pain, CIWA Q4hrs, ativan p/ MAR. Decrease in pain throughout morning, finally rested. Decreased SIMULATION SOFTWARE ENGINEER pump to 0 continuous, bolus, on demand remain. Diet advancing to clears, heat pack applied to abd with some comfort. Pt methadone restarted this am - 2x bolus (1.5mg) for inc in pain ~ 1530, 1757 Response: pt resting on and off, minimal scoring on CIWA (3 @ 1200, 2 @ 1600), able to make needs known, pain controlled. LIZET FLORES RN 2023 14:48 Problem: High Fall Risk: Goal: Patient will Remain Free of Falls due to Med. Side Effects Outcome: Ongoing Problem: Pain: Goal: Pain level will decrease Outcome: Ongoing * Plan of Care - Farheen Glass RN - 2023 0600 EST Problem: Pain: Goal: Pain level will decrease Outcome: Ongoing Patient A&Ox3. Here for alcohol induced acute pancreatitis. Patient is anxious, reporting 9-10/10 pain in abdomen throughout the night. Lying in bed, resting with eyes closed at times or watchingTV. Parameters for Dilaudid SIMULATION SOFTWARE ENGINEER pump changed x2 overnight per MD orders for pain. Patient received clinician bolus x6 overnight. Is now on schedule IVP Ketorolac. CIWA scoring in place, score rangingbetween 6-12 overnight. Medicated with prn Diazepam x2 with good effect. Most recent score was 7 [id number]. Hot packs applied to back and abdomen, encouraged repositioning for non-pharmacological interventions for pain. Up to void in bedside commode with SBA. Voiding clear/yellow urine. Remains on con tinuous LR at 100ml/hr. Call light within reach, able to make needs known. documented in this encounter Plan of Treatment Scheduled Referrals Name Type Priority Associated Diagnoses Orde r Schedule AMB CONS/FOLLOW UP GYNECOLOGY Outpatient Referral Routine/Next Available Encounter for other contraceptive management Expected: 07/22/2023 (Approximate), Expires: 06/21/2024 documented as of this encounter Procedures Procedure Name Priority Date/Time Associated Diagnosis Comments BHCG SCREEN, Add-On 6:48 EST COMPLETE BLOOD COUNT Routine 06/21/2023 6:48 EST COMPREHENSIVE METABOLIC PANEL (CMP) Routine 06/21/2023 6:48 EST HCV RNA DETECT QUANT Routine 06/20/2023 6:36 EST COMPLETE BLOOD COUNT Routine 06/20/2023 6:36 EST COMPREHENSIVE METABOLIC PANEL (CMP) Routine 06/20/2023 6:36 EST LACTIC ACID Routine 06/19/2023 6:43 EST COMPLETE BLOOD COUNT Routine 06/19/2023 6:43 EST MAGNESIUM Routine 06/19/2023 6:43 EST COMPREHENSIVE METABOLIC PANEL (CMP) Routine 06/19/2023 6:43 EST COMPLETE BLOOD COUNT Routine 2023 7:14 EST MAGNESIUM Add-On 2023 7:14 EST COMPREHENSIVE METABOLIC PANEL (CMP) Routine 2023 7:14 EST DRUG SCREEN 12, URINE STAT 06/17/2023 16:42 EST URINE CHEMICAL (DIP) & SEDIMENT (MICRO) WITH REFLEX TO CULTURE STAT 06/17/2023 16:41 EST TEST, URINE STAT 06/17/2023 16:41 EST LACTIC ACID Routine 06/17/2023 13:[address] ABDOMEN PELVIS W CONTRAST STAT 06/17/2023 12:27 EST ECG REPORT - SCANNED 06/17/2023 12:06 EST BILIRUBIN DIRECT/INDIRECT STAT 06/17/2023 9:13 EST MAGNESIUM Add-On 06/17/2023 9:13 EST LIPASE STAT 06/17/2023 9:13 EST LDH Add-On 06/17/2023 9:13 EST ETHANOL, BLOOD STAT 06/17/2023 9:13 EST COMPREHENSIVE METABOLIC PANEL (CMP) STAT 06/17/2023 9:13 EST COMPLETE BLOOD COUNT AND DIFFERENTIAL STAT 06/17/2023 7:58 EST EKG 12-LEAD STAT 06/17/2023 7:29 EST documented in this encounter Results * BHCG SCREEN, (06/21/2023 6:48 EST) [facility] Beta HCG Qualitative, Negative Negative 06/21/2023 8:40 EST [facility] Blood VENOUS BLOOD / Unknown Venipuncture / Unknown 06/21/2023 6:48 EST 06/21/2023 6:55 EST us Ric Dyer MD CHEMISTRY & BLOOD GAS ORDERABLES Final Result Performing Organization Address City/State/[facility] Co de Phone Number [facility] [address] [place] [address] * (ABNORMAL) COMPREHENSIVE METABOLIC PANEL (CMP) (06/21/2023 6:48 EST) [facility] Sodium 136 136 - 145 mmol/L 06/21/2023 7:32 [facility] Potassium 3.6 3.5 - 5.0 mmol/L 06/21/2023 7:32 [facility] Chloride 106 96 - 110 mmol/L 06/21/2023 7:32 [facility] CO2 Total 22 22 - 32 mmol/L 06/21/2023 7:32 [facility] Glucose 110(H) 70 - 99 mg/dl 06/21/2023 7:32 [facility] BUN 9(L) 10 - 26 mg/dL 06/21/2023 7:32 [facility] Creatinine 0.74 0.52 - 1.04 mg/dL 06/21/2023 7:32 [facility] eGFR 114 >60 mL/min/1.7 3m2 06/21/2023 7:32 [facility] Total Protein 5.3(L) 6.3 - 8.2 g/dL 06/21/2023 7:32 [facility] Albumin 2.4(L) 3.4 - 4.9 g/dL 06/21/2023 7:32 [facility] Alkaline Phosphatase 103 38 - 126 U/L 06/21/2023 7:32 [facility] AST 36 15 - 46 U/L 06/21/2023 7:32 [facility] ALT 28 <35 U/L 06/21/2023 7:32 [facility] Bilirubin, Total 0.9 <1.4 mg/dL 06/21/19 7:32 [facility] Calcium 7.9(L) 8.5 - 10.5 mg/dL 06/21/2023 7:32 [facility] Albumin/Globulin Ratio 0.8(L) 1.0 - 2.5 g/dL 06/21/2023 7:32 [facility] Anion Gap 8 5 - 14 mmol/L 06/21/2023 7:32 [facility] Blood VENOUS BLOOD / Unknown Venipuncture / Unknown 06/21/2023 6:48 EST 06/21/2023 6:55 EST us Roc Oro DO CHEMISTRY & BLOOD GAS ORDERABL ES Final Result [facility] [address] [place] [address] * COMPLETE BLOOD COUNT (06/21/2023 6:48 EST) WBC 5.20 4.00 - 12.40 K/cmm 06/21/2023 7:03 [facility] RBC 4.10 3.86 - 5.04 M/cmm 06/21/2023 7:03 [facility] Hemoglobin 13.6 11.6 - 15.2 g/dL 06/21/2023 7:03 [facility] HCT 40.2 34.9 - 44.4 % 06/21/2023 7:03 [facility] MCV 98 81 - 98 fL 06/21/2023 7:03 [facility] MCH 33.2 26.7 - 33.3 pg 06/21/2023 7:03 [facility] MCHC 33.8 32.1 - 35.9 g/dL 06/21/2023 7:03 [facility] RDW-CV 13.2 <14.7 % 06/21/2023 7:03 [facility] RDW-SD 47.1 <50.4 fl 06/21/2023 7:03 [facility] PLT 215 141 - 377 K/cmm 06/21/2023 7:03 [facility] MPV 9.6 9.5 - 12.7 fL 06/21/2023 7:03 [facility] Blood VENOUS BLOOD / Unknown Venipuncture / Unknown 06/21/2023 6:48 EST 06/21/2023 6:55 EST us Roc Oro DO HEMATOLOGY & PF4 ORDERABLES Fi nal Result [facility] [address] [place] [address] * (ABNORMAL) COMPREHENSIVE METABOLIC PANEL (CMP) (06/20/2023 6:36 EST) Sodium 134(L) 136 - 145 mmol/L 06/20/2023 7:33 [facility] Potassium 3.8 3.5 - 5.0 mmol/L 06/20/2023 7:33 [facility] Chloride 104 96 - 110 mmol/L 06/20/2023 7:33 [facility] CO2 Total 26 22 - 32 mmol/L 06/20/2023 7:33 [facility] Glucose 94 70 - 99 mg/dl 06/20/2023 7:33 [facility] BUN 6(L) 10 - 26 mg/dL 06/20/2023 7:33 [facility] Creatinine 0.69 0.52 - 1.04 mg/dL 06/20/2023 7:33 [facility] eGFR 122 >60 mL/min/1.7 3m2 06/20/2023 7:33 [facility] Total Protein 5.3(L) 6.3 - 8.2 g/dL 06/20/2023 7:33 [facility] Albumin 2.4(L) 3.4 - 4.9 g/dL 06/20/2023 7:33 [facility] Alkaline Phosphatase 107 38 - 126 U/L 06/20/2023 7:33 [facility] AST 38 15 - 46 U/L 06/20/2023 7:33 [facility] ALT 33 <35 U/L 06/20/2023 7:33 [facility] Bilirubin, Total 1.1 <1.4 mg/dL 06/20/19 7:33 [facility] Calcium 7.7(L) 8.5 - 10.5 mg/dL 06/20/2023 7:33 [facility] Albumin/Globulin Ratio 0.8(L) 1.0 - 2.5 g/dL 06/20/2023 7:33 [facility] Anion Gap 4(L) 5 - 14 mmol/L 06/20/2023 7:33 [facility] Blood VENOUS BLOOD / Unknown Venipuncture / Unknown 06/20/2023 6:36 EST 06/20/2023 7:14 EST us Roc Oro DO CHEMISTRY & BLOOD GAS ORDERABL ES Final Result [facility] [address] [place] [address] * (ABNORMAL) COMPLETE BLOOD COUNT (06/20/2023 6:36 EST) WBC 7.31 4.00 - 12.40 K/cmm 06/20/2023 7:19 [facility] RBC 4.31 3.86 - 5.04 M/cmm 06/20/2023 7:19 [facility] Hemoglobin 14.6 11.6 - 15.2 g/dL 06/20/2023 7:19 [facility] HCT 42.9 34.9 - 44.4 % 06/20/2023 7:19 [facility] MCV 100(H) 81 - 98 fL 06/20/2023 7:19 [facility] MCH 33.9(H) 26.7 - 33.3 pg 06/20/2023 7:19 [facility] MCHC 34.0 32.1 - 35.9 g/dL 06/20/2023 7:19 [facility] RDW-CV 13.0 <14.7 % 06/20/2023 7:19 [facility] RDW-SD 47.5 <50.4 fl 06/20/2023 7:19 [facility] PLT 206 141 - 377 K/cmm 06/20/2023 7:19 [facility] MPV 10.0 9.5 - 12.7 fL 06/20/2023 7:19 [facility] Blood VENOUS BLOOD / Unknown Venipuncture / Unknown 06/20/2023 6:36 EST 06/20/2023 7:14 EST Roc Oro DO HEMATOLOGY & PF4 ORDERABLES Fi nal Result Performing Organization Address City/State/[facility] Co de Phone Number [facility] [address] [place] [address] * HCV RNA DETECT QUANT (06/20/2023 6:36 EST) HCV RNA Qualitative Undetected Undetected 06/21/2023 13:24 EST [facility] Blood VENOUS BLOOD / Unknown Venipuncture / Unknown 06/20/2023 6:36 EST 06/20/2023 7:14 EST Narrative [facility] - 06/21/2023 13:24 EST The quantification range of this assay is 15 IU/mL to 100,000,000 IU/mL. Testing was performed using the [place] HCV test ([employer] with the cheyenne [id number] System. Sven Tirado MD CHEMISTRY & BLOOD GAS ORDERABLE S Final Result [facility] [address] [place] [address] * (ABNORMAL) COMPREHENSIVE METABOLIC PANEL (CMP) (06/19/2023 6:43 EST) Sodium 134(L) 136 - 145 mmol/L 06/19/2023 7:29 [facility] Potassium 3.5 3.5 - 5.0 mmol/L 06/19/2023 7:29 [facility] Chloride 101 96 - 110 mmol/L 06/19/2023 7:29 [facility] CO2 Total 23 22 - 32 mmol/L 06/19/2023 7:29 [facility] Glucose 97 70 - 99 mg/dl 06/19/2023 7:29 [facility] BUN 4(L) 10 - 26 mg/dL 06/19/2023 7:29 [facility] Creatinine 0.65 0.52 - 1.04 mg/dL 06/19/2023 7:29 [facility] eGFR 124 >60 mL/min/1.7 3m2 06/19/2023 7:29 [facility] Total Protein 5.4(L) 6.3 - 8.2 g/dL 06/19/2023 7:29 [facility] Albumin 2.5(L) 3.4 - 4.9 g/dL 06/19/2023 7:29 [facility] Alkaline Phosphatase 108 38 - 126 U/L 06/19/2023 7:29 [facility] AST 53(H) 15 - 46 U/L 06/19/2023 7:29 [facility] ALT 48(H) <35 U/L 06/19/2023 7:29 [facility] Bilirubin, Total 1.3 <1.4 mg/dL 06/19/19 7:29 [facility] Calcium 7.8(L) 8.5 - 10.5 mg/dL 06/19/2023 7:29 [facility] Albumin/Globulin Ratio 0.9(L) 1.0 - 2.5 g/dL 06/19/2023 7:29 [facility] Anion Gap 10 5 - 14 mmol/L 06/19/2023 7:29 [facility] Blood VENOUS BLOOD / Unknown Venipuncture / Unknown 06/19/2023 6:43 EST 06/19/2023 6:53 EST us Roc Oro DO CHEMISTRY & BLOOD GAS ORDERABL ES Final Result Performing Organization Address City/State/[facility] Co de Phone Number [facility] [address] [place] [address] * (ABNORMAL) COMPLETE BLOOD COUNT (06/19/2023 6:43 EST) WBC 9.16 4.00 - 12.40 K/cmm 06/19/2023 6:59 [facility] RBC 4.52 3.86 - 5.04 M/cmm 06/19/2023 6:59 [facility] Hemoglobin 15.2 11.6 - 15.2 g/dL 06/19/2023 6:59 [facility] HCT 43.5 34.9 - 44.4 % 06/19/2023 6:59 [facility] MCV 96 81 - 98 fL 06/19/2023 6:59 [facility] MCH 33.6(H) 26.7 - 33.3 pg 06/19/2023 6:59 [facility] MCHC 34.9 32.1 - 35.9 g/dL 06/19/2023 6:59 [facility] RDW-CV 12.6 <14.7 % 06/19/2023 6:59 [facility] RDW-SD 44.9 <50.4 fl 06/19/2023 6:59 [facility] PLT 216 141 - 377 K/cmm 06/19/2023 6:59 EST [facility] MPV 9.5 9.5 - 12.7 fL 06/19/2023 6:59 EST [facility] Blood VENOUS BLOOD / Unknown Venipuncture / Unknown 06/19/2023 6:43 EST 06/19/2023 6:53 EST us Roc Oro DO HEMATOLOGY & PF4 ORDERABLES Fi nal Result [facility] [address] [place] [address] * LACTIC ACID (06/19/2023 6:43 EST) Lactic Acid 0.8 <=2.0 mmol/L 06/19/2023 7:15 EST [facility] Blood VENOUS BLOOD / Unknown Venipuncture / Unknown 06/19/2023 6:43 EST 06/19/2023 6:53 EST Sven Tirado MD CHEMISTRY & BLOOD GAS ORDERABLE S Final Result Performing Organization Address [facility] Co de Phone Number [facility] [address] [place] [address] * MAGNESIUM (06/19/2023 6:43 EST) Magnesium 1.8 1.7 - 2.8 mg/dL 06/19/2023 7:29 EST [facility] Blood VENOUS BLOOD / Unknown Venipuncture / Unknown 06/19/2023 6:43 EST 06/19/2023 6:53 EST Sven Tirado MD CHEMISTRY & BLOOD GAS ORDERABLE S Final Result Performing Organization Address [facility] Co de Phone Number [facility] [address] [place] [address] * (ABNORMAL) MAGNESIUM (2023 7:14 EST) Magnesium 1.4(L) 1.7 - 2.8 mg/dL 2023 8:16 [facility] Blood VENOUS BLOOD / Unknown Venipuncture / Unknown 2023 7:14 EST 2023 7:22 EST us Sven Tirado MD CHEMISTRY & BLOOD GAS ORDERABLE S Final Result [facility] [address] [place] [address] * (ABNORMAL) COMPREHENSIVE METABOLIC PANEL (CMP) (2023 7:14 EST) Sodium 137 136 - 145 mmol/L 2023 7:52 [facility] Potassium 3.4(L) 3.5 - 5.0 mmol/L 2023 7:52 [facility] Chloride 104 96 - 110 mmol/L 2023 7:52 [facility] CO2 Total 28 22 - 32 mmol/L 2023 7:52 [facility] Glucose 110(H) 70 - 99 mg/dl 2023 7:52 [facility] BUN 4(L) 10 - 26 mg/dL 2023 7:52 [facility] Creatinine 0.77 0.52 - 1.04 mg/dL 2023 7:52 [facility] eGFR 108 >60 mL/min/1.7 3m2 2023 7:52 [facility] Total Protein 5.4(L) 6.3 - 8.2 g/dL 2023 7:52 [facility] Albumin 2.6(L) 3.4 - 4.9 g/dL 2023 7:52 [facility] Alkaline Phosphatase 105 38 - 126 U/L 2023 7:52 [facility] AST 83(H) 15 - 46 U/L 2023 7:52 [facility] ALT 64(H) <35 U/L 2023 7:52 [facility] Bilirubin, Total 1.1 <1.4 mg/dL 06/18/19 7:52 [facility] Calcium 8.0(L) 8.5 - 10.5 mg/dL 2023 7:52 [facility] Albumin/Globulin Ratio 0.9(L) 1.0 - 2.5 g/dL 2023 7:52 [facility] Anion Gap 5 5 - 14 mmol/L 2023 7:52 [facility] Blood VENOUS BLOOD / Unknown Venipuncture / Unknown 2023 7:14 EST 2023 7:22 EST Roc Oro DO CHEMISTRY & BLOOD GAS ORDERABL ES Final Result Performing Organization Address City/State/[facility] Co de Phone Number [facility] [address] [place] [address] * (ABNORMAL) COMPLETE BLOOD COUNT (2023 7:14 EST) WBC 10.31 4.00 - 12.40 K/cmm 2023 7:35 [facility] RBC 4.42 3.86 - 5.04 M/cmm 2023 7:35 [facility] Hemoglobin 14.8 11.6 - 15.2 g/dL 2023 7:35 [facility] HCT 42.6 34.9 - 44.4 % 2023 7:35 [facility] MCV 96 81 - 98 fL 2023 7:35 [facility] MCH 33.5(H) 26.7 - 33.3 pg 2023 7:35 [facility] MCHC 34.7 32.1 - 35.9 g/dL 2023 7:35 [facility] RDW-CV 12.4 <14.7 % 2023 7:35 [facility] RDW-SD 43.8 <50.4 fl 2023 7:35 [facility] PLT 224 141 - 377 K/cmm 2023 7:35 [facility] MPV 9.7 9.5 - 12.7 fL 2023 7:35 [facility] Blood VENOUS BLOOD / Unknown Venipuncture / Unknown 2023 7:14 EST 2023 7:22 EST us Roc Oro DO HEMATOLOGY & PF4 ORDERABLES Fi nal Result [facility] [address] [place] [address] * (ABNORMAL) DRUG SCREEN 12, URINE (06/17/2023 16:42 EST) Amphetamine Screen, Ur Negative Negative, Negative Screen 06/17/2023 17:23 [facility] Barbiturates Screen, Ur Presumptive Positive, interpret with caution.(A) Negative, Negative Screen 06/17/2023 17:23 [facility] Benzodiazepine Screen, Ur Negative Negative, Negative Screen 06/17/2023 17:23 [facility] Cocaine Metabolites Screen, Ur Presumptive Positive, interpret with caution.(A) Negative, Negative Screen 06/17/2023 17:23 [facility] Methamphetamine Screen, Ur Negative Negative, Negative Screen 06/17/2023 17:23 [facility] Methadone Screen, Ur Presumptive Positive, interpret with caution.(A) Negative, Negative Screen 06/17/2023 17:23 [facility] Opiates Screen, Ur Presumptive Positive, interpret with caution.(A) Negative, Negative Screen 06/17/2023 17:23 [facility] Oxycodone Screen, Ur Negative Negative, Negative Screen 06/17/2023 17:23 [facility] Phencyclidine Screen, Ur Negative Negative Screen, Negative 06/17/2023 17:23 [facility] Cannabinoids Screen, Ur Negative Negative, Negative Screen 06/17/2023 17:23 [facility] Buprenorphine and Metabolites Screen, Ur Negative Negative, Negative Screen 06/17/2023 17:23 EST [facility] Tricyclics Screen, Ur Negative Negative Screen, Negative 06/17/2023 17:23 EST [facility] Urine URINE / Unknown Urine Collect / Unknown 06/17/2023 16:42 EST 06/17/2023 17:02 EST Narrative [facility] - 06/17/2023 17:23 EST Drug Class Cutoff Concentrations: Amphetamines - 500 ng/mL Barbiturates - 200 ng/mL Benzodiazepines - 150 ng/mL Cocaine - 150 ng/mL Methamphetamine - 500 ng/mL Methadone - 200 ng/mL Opiates - 100 ng/mL Oxycodone - 100 ng/mL Phencyclidine (PCP) - 25 ng/mL Tetrahydrocannabinol (THC) - 50 ng/mL Propoxyphene - 300 ng/mL Buprenorphine and Metabolites - 10 ng/mL Tricyclic Antidepressants - 300 ng/mL This is a screening assay only, intended for use in clinical monitoring or management of patients. False positive or false negative results can occur. ??If confirmation testing is needed, please place order as Add-On order in Epic. ??Specimens are retained in the laboratory for 7 days. Braulio Chapman DO GEN LAB UNIT COLLECT ORDERABLE S Final Result Performing Organization Address [facility]/ZIP Co de Phone Number [facility] [address] [place] [address] * TEST, URINE (06/17/2023 16:41 EST) Test, Urine Negative Negative 06/17/2023 17:15 EST [facility] Urine URINE SPECIMEN OBTAINED BY CLEAN CATCH PROCEDURE / Unknown Urine Collect / Unknown 06/17/2023 16:41 EST 06/17/2023 17:02 EST Braulio Chapman DO URINALYSIS ORDERABLES Final Re sult Performing Organization Address [facility]/ZIP Co de Phone Number [facility] [address] [place] [address] * (ABNORMAL) UA CHEMICAL & SEDIMENT + REFLEX TO CULTURE (06/17/2023 16:41 [facility]) Color UA Yellow Colorless, Yellow 06/17/2023 17:22 [facility] Clarity UA Clear Clear 06/17/2023 17:22 [facility] Glucose UA Negative Negative mg/dL 06/17/2023 17:22 [facility] Bilirubin UA 1+(A) Negative 06/17/2023 17:22 [facility] Ketones UA Negative Negative 06/17/2023 17:22 [facility] Specific Nolan, Urine <=1.005 1.001 - 1.030 06/17/2023 17:22 [facility] Blood UA Negative Negative 06/17/2023 17:22 [facility] Nitrite UA Negative Negative 06/17/2023 17:22 [facility] Leukocyte Esterase UA Negative Negative 06/17/2023 17:22 [facility] Protein UA Negative Negative mg/dL 06/17/2023 17:22 [facility] pH, UA 8.0 <8.5 06/17/2023 17:22 [facility] Urine RBC Count, Manual 0 - 2 0 - 2 Cells/HPF 06/17/2023 17:22 [facility] Urine WBC Count 4 - 9(A) 0 - 3 Cells/HPF 06/17/2023 17:22 [facility] Urine Squamous Count, Manual Moderate(A) None Seen Cells/HPF 06/17/2023 17:22 [facility] Urine Hyaline Cast Count, Manual <=10 <=10 Casts/LPF 06/17/2023 17:22 [facility] Urine Bacteria Count, Manual None Seen None Seen Bacteria/HP F 06/17/2023 17:22 [facility] Urobilinogen UA 2.0(A) 0.2-1.0 mg/dL mg/dL 06/17/2023 17:22 [facility] Urine URINE SPECIMEN OBTAINED BY CLEAN CATCH PROCEDURE / Unknown Urine Collect / Unknown 06/17/2023 16:41 EST 06/17/2023 17:02 EST Narrative [facility] - 06/17/2023 17:22 EST Urine Sediment Analysis results are unreliable on urines that are unrefrigerated for >2 hrs or refrigerated >8 hrs. NOTE: Reflex to Urine Culture test is not indicated based on Urine Sediment Analysis results. Braulio Chapman DO URINALYSIS ORDERABLES Final Re sult Performing Organization Address [facility] Co de Phone Number [facility] [address] [place] [address] * (ABNORMAL) LACTIC ACID (06/17/2023 13:04 EST) Lactic Acid 3.2(HH) <=2.0 mmol/L 06/17/2023 13:37 EST [facility] Blood VENOUS BLOOD / Unknown Venipuncture / Unknown 06/17/2023 13:04 EST 06/17/2023 13:08 EST Roc Oro DO CHEMISTRY & BLOOD GAS ORDERABL ES Final Result Performing Organization Address [facility] Co de Phone Number [facility] [address] [place] [address] * CT ABDOMEN PELVIS W CONTRAST (06/17/2023 12:27 EST) Anatomical Region Laterality Modality Body, Abdomen, Pelvis, Abdomen and Pelvis Computed Tomography 06/17/2023 12:0 1 EST Impressions 06/17/2023 13:03 EST Acute pancreatitis. ??Hepatic steatosis. THIS DOCUMENT HAS BEEN ELECTRONICALLY SIGNED BY TRAVIS LINARES MD FOR ANY QUESTIONS OR CONCERNS REGARDING THIS REPORT PLEASE CALL [facility] AT [phone] Narrative 06/17/2023 13:03 EST PROCEDURE INFORMATION: Exam: CT Abdomen And Pelvis With Contrast Exam date and time: 06/17/2023 12:01 PM Age: 27 years old Clinical indication: Other: Abdominal pain, pancreatitis TECHNIQUE: Imaging protocol: Computed tomography of the abdomen and pelvis with contrast. Radiation optimization: All CT scans at this facility use at least one of these dose optimization techniques: automated exposure control; mA and/or kV adjustment per patient size (includes targeted exams where dose is matched to clinical indication); or iterative reconstruction. Contrast material: OMNIPAQUE 350; Contrast volume: 100 ml; Contrast route: INTRAVENOUS (IV); ?? COMPARISON: US ABDOMEN LIMITED 31/05/2023 20:08 FINDINGS: Lungs: Visualized lung bases are clear. Liver: Prominent fatty infiltration of the liver. No mass or ductal dilatation. Gallbladder and bile ducts: Normal. No calcified stones. No ductal dilation. Pancreas: There are extensive inflammatory changes surrounding the pancreas. There is free fluid in the left upper quadrant between the pancreas and spleen. Free fluid extends in the right paracolic gutter toward the pelvis. Small amount of free fluid in the pelvis. Spleen: See Pancreas finding. Adrenal glands: Normal. No mass. Kidneys and ureters: Normal. No hydronephrosis, calculus, cyst or mass. Stomach and bowel: There are mildly dilated fluid-filled loops of small bowel in the mid abdomen with scattered air-fluid levels. This likely reflects secondary ileus. Appendix: No evidence of appendicitis. Intraperitoneal space: See Pancreas finding. Vasculature: Unremarkable. No abdominal aortic aneurysm or significant atherosclerosis. Lymph nodes: No enlarged retroperitoneal or mesenteric lymph nodes. Urinary bladder: No mass or wall thickening. Reproductive: Unremarkable as visualized. Bones/joints: Unremarkable. No acute fracture. No lytic lesion. Soft tissues: Unremarkable. Procedure Note Travis Linares MD - 06/17/2023 PROCEDURE INFORMATION: Exam: CT Abdomen And Pelvis With Contrast Exam date and time: 06/17/2023 12:01 PM Age: 27 years old Clinical indication: Other: Abdominal pain, pancreatitis TECHNIQUE: Imaging protocol: Computed tomography of the abdomen and pelvis with contrast. Radiation optimization: All CT scans at this facility use at least one of these dose optimization techniques: automated exposure control; mA and/or kV adjustment per patient size (includes targeted exams where dose is matched to clinical indication); or iterative reconstruction. Contrast material: OMNIPAQUE 350; Contrast volume: 100 ml; Contrast route: INTRAVENOUS (IV); COMPARISON: US ABDOMEN LIMITED 31/05/2023 20:08 FINDINGS: Lungs: Visualized lung bases are clear. Liver: Prominent fatty infiltration of the liver. No mass or ductal dilatation. Gallbladder and bile ducts: Normal. No calcified stones. No ductal dilation. Pancreas: There are extensive inflammatory changes surrounding the pancreas. There is free fluid in the left upper quadrant between the pancreas and spleen. Free fluid extends in the right paracolic gutter toward the pelvis. Small amount of free fluid in the pelvis. Spleen: See Pancreas finding. Adrenal glands: Normal. No mass. Kidneys and ureters: Normal. No hydronephrosis, calculus, cyst or mass. Stomach and bowel: There are mildly dilated fluid-filled loops of small bowel in the mid abdomen with scattered air-fluid levels. This likely reflects secondary ileus. Appendix: No evidence of appendicitis. Intraperitoneal space: See Pancreas finding. Vasculature: Unremarkable. No abdominal aortic aneurysm or significant atherosclerosis. Lymph nodes: No enlarged retroperitoneal or mesenteric lymph nodes. Urinary bladder: No mass or wall thickening. Reproductive: Unremarkable as visualized. Bones/joints: Unremarkable. No acute fracture. No lytic lesion. Soft tissues: Unremarkable. IMPRESSION Acute pancreatitis. Hepatic steatosis. THIS DOCUMENT HAS BEEN ELECTRONICALLY SIGNED BY TRAVIS LINARES MD FOR ANY QUESTIONS OR CONCERNS REGARDING THIS REPORT PLEASE CALL VR [phone] Braulio Chapman DO IMG CT ORDERABLES Final Result * ECG REPORT - SCANNED (06/17/2023 12:06 EST) 06/17/2023 12:0 6 EST us Scan 2 Ironing Machine Operator PROCEDURE/MINOR SURGICAL OR DERABLES Final Result * (ABNORMAL) MAGNESIUM (06/17/2023 9:13 EST) Magnesium 1.4(L) 1.7 - 2.8 mg/dL 06/17/2023 13:54 EST [facility] Blood VENOUS BLOOD / Unknown Venipuncture / Unknown 06/17/2023 9:13 EST 06/17/2023 9:15 EST Roc Oro DO CHEMISTRY & BLOOD GAS ORDERABL ES Final Result [facility] [address] [place] [address] * (ABNORMAL) LDH (06/17/2023 9:13 EST) LDH 379(H) 120 - 246 U/L 06/17/2023 12:53 EST [facility] Blood VENOUS BLOOD / Unknown Venipuncture / Unknown 06/17/2023 9:13 EST 06/17/2023 9:15 EST us Roc Oro DO CHEMISTRY & BLOOD GAS ORDERABL ES Final Result Performing Organization Address City/[facility]/ZIP Co de Phone Number [facility] [address] [place] [address] * BILIRUBIN DIRECT/INDIRECT (06/17/2023 9:13 EST) Pathologist [facility] Conjugated Bilirubin 0.0 <=0.3 mg/dL 06/17/2023 9:41 EST [facility] Unconjugated Bilirubin 0.6 <=1.1 mg/dL 06/17/2023 9:41 EST [facility] Blood VENOUS BLOOD / Unknown Venipuncture / Unknown 06/17/2023 9:13 EST 06/17/2023 9:15 EST Braulio Chapman DO CHEMISTRY & BLOOD GAS ORDERABL ES Final Result Performing Organization Address [facility]/ZIP Co de Phone Number [facility] [address] [place] [address] * (ABNORMAL) LIPASE (06/17/2023 9:13 EST) Pathologist [facility] Lipase 3,000(H) <251 U/L 06/17/2023 10:30 EST [facility] Blood VENOUS BLOOD / Unknown Venipuncture / Unknown 06/17/2023 9:13 EST 06/17/2023 9:15 EST Braulio Chapman DO CHEMISTRY & BLOOD GAS ORDERABL ES Final Result Performing Organization Address City/[facility]/ZIP Co de Phone Number [facility] [address] [place] [address] * ETHANOL, BLOOD (06/17/2023 9:13 EST) Pathologist [facility] Ethanol, Blood <10 <10 mg/dL mg/dL 06/17/2023 9:41 [facility] Comment:Healthy, non-drinkin g individuals will have an ethanol concentration of <10 mg/dL. Blood VENOUS BLOOD / Unknown Venipuncture / Unknown 06/17/2023 9:13 EST 06/17/2023 9:15 [facility] - 06/17/2023 9:41 [facility] legal blood alcohol limit = 80 mg/dl (0.08%) us Braulio Chapman DO CHEMISTRY & BLOOD GAS ORDERABL ES Final Result [facility] [address] [place] [address] * (ABNORMAL) COMPREHENSIVE METABOLIC PANEL (CMP) (06/17/2023 9:13 EST) [facility] Sodium 138 136 - 145 mmol/L 06/17/2023 9:55 [facility] Potassium 3.8 3.5 - 5.0 mmol/L 06/17/2023 9:55 [facility] Chloride 100 96 - 110 mmol/L 06/17/2023 9:55 [facility] CO2 Total 28 22 - 32 mmol/L 06/17/2023 9:55 [facility] Glucose 122(H) 70 - 99 mg/dl 06/17/2023 9:55 [facility] BUN 8(L) 10 - 26 mg/dL 06/17/2023 9:55 [facility] Creatinine 1.02 0.52 - 1.04 mg/dL 06/17/2023 9:55 [facility] eGFR 78 >60 mL/min/1.7 3m2 06/17/2023 9:55 [facility] Total Protein 6.3 6.3 - 8.2 g/dL 06/17/2023 9:55 [facility] Albumin 3.2(L) 3.4 - 4.9 g/dL 06/17/2023 9:55 [facility] Alkaline Phosphatase 117 38 - 126 U/L 06/17/2023 9:55 [facility] AST 165(H) 15 - 46 U/L 06/17/2023 9:55 [facility] ALT 87(H) <35 U/L 06/17/2023 9:55 [facility] Bilirubin, Total 1.5(H) <1.4 mg/dL 06/17/19 9:55 [facility] Calcium 8.0(L) 8.5 - 10.5 mg/dL 06/17/2023 9:55 [facility] Albumin/Globulin Ratio 1.0 1.0 - 2.5 g/dL 06/17/2023 9:55 [facility] Anion Gap 10 5 - 14 mmol/L 06/17/2023 9:55 [facility] Blood VENOUS BLOOD / Unknown Venipuncture / Unknown 06/17/2023 9:13 EST 06/17/2023 9:15 EST us Braulio Chapman DO CHEMISTRY & BLOOD GAS ORDERABL ES Final Result Performing Organization Address City/State/[facility] Co de Phone Number [facility] [address] [place] [address] * (ABNORMAL) COMPLETE BLOOD COUNT AND DIFFERENTIAL (06/17/2023 7:58 EST) WBC 7.28 4.00 - 12.40 K/cmm 06/17/2023 8:03 [facility] RBC 4.91 3.86 - 5.04 M/cmm 06/17/2023 8:03 [facility] Hemoglobin 16.5(H) 11.6 - 15.2 g/dL 06/17/2023 8:03 [facility] HCT 46.8(H) 34.9 - 44.4 % 06/17/2023 8:03 [facility] MCV 95 81 - 98 fL 06/17/2023 8:03 [facility] MCH 33.6(H) 26.7 - 33.3 pg 06/17/2023 8:03 [facility] MCHC 35.3 32.1 - 35.9 g/dL 06/17/2023 8:03 [facility] RDW-CV 12.8 <14.7 % 06/17/2023 8:03 [facility] RDW-SD 45.2 <50.4 fl 06/17/2023 8:03 [facility] PLT 260 141 - 377 K/cmm 06/17/2023 8:03 [facility] MPV 9.6 9.5 - 12.7 fL 06/17/2023 8:03 [facility] % Neutrophils 76.4 % 06/17/2023 8:03 [facility] % Lymphocytes 15.2 % 06/17/2023 8:03 [facility] % Monocytes 7.1 % 06/17/2023 8:03 [facility] % Eosinophils 0.5 % 06/17/2023 8:03 [facility] % Basophils 0.7 % 06/17/2023 8:03 [facility] % Immature Grans 0.1 % 06/17/19 8:03 [facility] Absolute Neutrophils 5.55 2.20 - 8.85 K/cmm 06/17/2023 8:03 [facility] Absolute Lymphocytes 1.11 1.09 - 3.30 K/cmm 06/17/2023 8:03 [facility] Absolute Monocytes 0.52 0.10 - 0.80 K/cmm 06/17/2023 8:03 [facility] Absolute Eosinophils 0.04 0.03 - 0.61 K/cmm 06/17/2023 8:03 [facility] ABS Basophils 0.05 0.01 - 0.11 K/cmm 06/17/2023 8:03 [facility] Absolute Immature Grans 0.01 0.00 - 0.06 K/cmm 06/17/2023 8:03 [facility] Type of Differential: Auto 06/17/2023 8:03 EST [facility] Blood VENOUS BLOOD / Unknown Venipuncture / Unknown 06/17/2023 7:58 EST 06/17/2023 8:01 EST us Braulio Ari DO PACKAGES & DNA PROBE ORDERABLE S Final Result [facility] [address] [place] [address] * EKG 12-LEAD (06/17/2023 7:29 EST) 06/17/2023 7:29 EST Narrative [facility] - 06/17/2023 11:55 EST ? [facility] ? Test Date: ?2023-06-17 Pat Name: ? WILFREDA SALKUMAR ?Department: ? Room: ? C02 Gender: ? Female ? Shoe Maker: ?? LG : ?1995 ? Requested By: ARI UMAÑA Order Number: [id number] ? Reading MD: ?? PATRICIO MCWILLIAMS MD ? Measurements Intervals ?[place] ? Rate: ? 74 ? P: ?39 NV: ? 142 ?QRS: ?4 QRSD: ? 94 ? T: ?45 QT: ? 423 ? QTc: ?470 ? Interpretive Statements Normal sinus rhythm with sinus arrhythmia Incomplete right bundle branch block Prolonged QT Compared to ECG 06/04/2023 00:24:38 No significant changes I reviewed the tracing and have either agreed or edited the findings in this report. Electronically Signed On 06-17-2023 11:55:07 EST by PATRICIO MCWILLIAMS MD. Procedure Note Patricio Mcwilliams MD - 06/17/2023 [facility] [place] Date: 2023-06-17 Pat Name: KARIN ROBLES Department: Room: C02 Gender: Female Shoe Maker: LG : 1995 Requested By: ARI UMAÑA Order Number: [id number] Reading MD: PATRICIO MCWILLIAMS MD Measurements Intervals [place] Rate: 74 P: 39 NV: 142 QRS: 4 QRSD: 94 T: 45 QT: 423 QTc: 470 Interpretive Statements Normal sinus rhythm with sinus arrhythmia Incomplete right bundle branch block Prolonged QT Compared to ECG 06/04/2023 00:24:38 No significant changes I reviewed the tracing and have either agreed or edited the findings inthis report. Electronically Signed On 06-17-2023 11:55:07 EST by PATRICIO PATEL. us Braulio Chapman DO CARDIAC ECG ORDERABLES Final R esult [facility] documented in this encounter Visit Diagnoses Diagnosis Alcohol-induced acute pancreatitis, unspecified complication status- Primary Alcohol-induced acute pancreatitis, unspecified complication status Pancreatitis, unspecified pancreatitis type [K85.90] Alcohol withdrawal syndrome without complication (HCC-CMS) [F10.930] Encounter for other contraceptive management Pancreatitis, unspecified pancreatitis type [K85.90] Alcohol withdrawal syndrome without complication (HCC-CMS) documented in this encounter Admitting Diagnoses Diagnosis Pancreatitis, unspecified pancreatitis type documented in this encounter Administered Medications Inactive Administered Medications - up to 3 most recent administrations Medication Order MAR Action Action Date Dose Rate Site aluminum & magnesium hydroxide-simethicone (MAALOX PLUS) 200-200-20 mg/5 mL suspension 30 mL 30 mL, oral, NOW X1, 1 dose, On 06/17/23 at 1000, STAT Given 06/17/2023 9:47 EST 30 mL diazePAM (VALIUM) syringe 5-10 mg 5-10 mg, intravenous, EVERY 1 HOUR PRN, Starting on 06/17/23 at 1243, Until Mon06/20/23 at 1023, Withdrawal, Routine, Release Given 2023 8:39 EST 5 mg Given 2023 3:16 EST 10 mg diazePAM (VALIUM) tablet 10-20 mg 10-20 mg, oral, EVERY 1 HOUR PRN, Starting on 06/17/23 at 1243, Until Mon06/20/23 at 1023, Withdrawal, Routine, Release Given 2023 19:48 EST 20 mg Given 06/17/2023 20:10 EST 10 mg diphenhydrAMINE (BENADRYL) capsule 25 mg 25 mg, oral, AT BEDTIME PRN, Starting on 06/19/24 at 1331, Until Mon06/21/23 at 1617, Sleep, Routine Given 06/19/2023 20:13 EST 25 mg diphenhydrAMINE (BENADRYL) injection 25 mg 25 mg, intravenous, NOW X1, 1 dose, On 06/17/23 at 1815, Routine Given 06/17/2023 18:20 EST 25 mg diphenhydrAMINE (BENADRYL) injection 25 mg 25 mg, intravenous, NOW X1, 1 dose, On 06/17/23 at 2345, Routine Given 06/17/2023 23:42 EST 25 mg folic acid (FOLVITE) tablet 1 mg 1 mg, oral, DAILY, First dose on 06/18/23 at 0900, Until Discontinued, Routine, Release Given 06/21/2023 8:27 EST 1 mg Given 06/20/2023 8:28 EST 1 mg Given 06/19/2023 8:10 EST 1 mg folic acid 1 mg in sodium chloride (NS) 0.9 % 50 mL IVPB 1 mg, intravenous, Administer over 30 Minutes, DAILY, First dose on 06/18/23 at 0900, Until Discontinued, Routine, Release Given 2023 12:28 EST 1 mg gabapentin (NEURONTIN) capsule 300 mg 300 mg, oral, 3 TIMES DAILY, First dose on 06/17/23 at 1400, Until Discontinued, Routine Given 06/21/2023 13:48 EST 30 0 mg Given 06/21/2023 8:27 EST 300 mg Given 06/20/2023 20:03 EST 300 mg HYDROmorphone (DILAUDID) in NS 100 mg/100 mL SIMULATION SOFTWARE ENGINEER intravenous, SIMULATION SOFTWARE ENGINEER, Starting on 06/17/23 at 1500, Until 06/17/23 at 2239, OPIOID-TOLERANT, Continuous Infusion Dose (mg/hr): 0.2, SIMULATION SOFTWARE ENGINEER Dose (Max 0.4 mg): 0.4, Lockout Interval (minutes): 8, Maximum Limit (mg/hr): 3.2, Routine, Release New Bag 06/17/2023 15:49 EST HYDROmorphone (DILAUDID) in NS 100 mg/100 mL SIMULATION SOFTWARE ENGINEER intravenous, SIMULATION SOFTWARE ENGINEER, Starting on 06/17/23 at 2300, Until 06/18/23 at 0153, CUSTOM, Continuous Infusion Dose (mg/hr): 0.5, SIMULATION SOFTWARE ENGINEER Dose (Max 1 mg): 0.4, Lockout Interval (minutes): 10, Maximum Limit (mg/hr): 3, Routine, Release Rate Change 06/17/2023 23:15 EST HYDROmorphone (DILAUDID) in NS 100 mg/100 mL SIMULATION SOFTWARE ENGINEER intravenous, SIMULATION SOFTWARE ENGINEER, Starting on 06/18/23 at 0215, Until 06/18/23 at 0730, CUSTOM, Continuous Infusion Dose (mg/hr): 0.8, SIMULATION SOFTWARE ENGINEER Dose (Max 1 mg): 0.4, Lockout Interval (minutes): 10, Maximum Limit (mg/hr): 3.7, Routine, Release Rate Change 2023 2:46 EST IV HYDROmorphone (DILAUDID) in NS 100 mg/100 mL SIMULATION SOFTWARE ENGINEER intravenous, SIMULATION SOFTWARE ENGINEER, Starting on 06/18/23 at 0830, Until 06/18/23 at 1348, OPIOID-TOLERANT, Continuous Infusion Dose (mg/hr): 0.8, SIMULATION SOFTWARE ENGINEER Dose (Max 0.4 mg): 0.4, Lockout Interval (minutes): 10, Maximum Limit (mg/hr): 3.2, Routine, Release Rate Documented 2023 8:15 EST 0.8 mL/hr HYDROmorphone (DILAUDID) in NS 100 mg/100 mL SIMULATION SOFTWARE ENGINEER intravenous, SIMULATION SOFTWARE ENGINEER, Starting on 06/18/23 at 1415, Until 06/19/23 at 1328, OPIOID-TOLERANT, Continuous Infusion Dose (mg/hr): 0, SIMULATION SOFTWARE ENGINEER Dose (Max 0.4 mg): 0.4, Lockout Interval (minutes): 10, Maximum Limit (mg/hr): 3.2, Routine, Release New Bag 2023 14:13 EST 0 mL/hr HYDROmorphone (DILAUDID) infusion 1 mg/mL 100 mL PRN/Bolus documentation 0.2 mg 0.2 mg, intravenous, EVERY 1 HOUR PRN, Starting on 06/17/23 at 1430, Until 06/17/23 at 2239, Severe Pain 7-10, Routine, Release Given 06/17/2023 21:39 EST 0.2 mg Given 06/17/2023 20:07 EST 0.2 mg Given 06/17/2023 17:42 EST 0.2 mg HYDROmorphone (DILAUDID) infusion 1 mg/mL 100 mL PRN/Bolus documentation 0.5 mg 0.5 mg, intravenous, EVERY 1 HOUR PRN, Starting on 06/17/23 at 2233, Until 06/18/23 at 0153, Severe Pain 7-10, Routine, Release Given 2023 1:31 EST 0.5 mg Given 06/17/2023 23:53 EST 0.5 mg HYDROmorphone (DILAUDID) infusion 1 mg/mL 100 mL PRN/Bolus documentation 1 mg 1 mg, intravenous, EVERY 1 HOUR PRN, Starting on 06/18/23 at 0151, Until 06/18/23 at 0730, Severe Pain 7-10, Routine, Release Given 2023 4:33 EST 1 mg Given 2023 2:56 EST 1 mg HYDROmorphone (DILAUDID) injection 1 mg 1 mg, intravenous, NOW X1, 1 dose, On 06/17/23 at 1300, Routine Given 06/17/2023 12:47 EST 1 mg HYDROmorphone (DILAUDID) injection 1 mg 1 mg, intravenous, NOW X1, 1 dose, On 06/17/23 at 1330, Routine Given 06/17/2023 13:25 EST 1 mg HYDROmorphone (DILAUDID) injection 1 mg 1 mg, intravenous, NOW X1, 1 dose, On 06/17/23 at 1445, Routine Given 06/17/2023 14:32 EST 1 mg HYDROmorphone (DILAUDID) injection 1 mg 1 mg, intravenous, NOW X1, 1 dose, On 06/17/23 at 2300, Routine Given 06/17/2023 23:09 EST 1 mg HYDROmorphone (DILAUDID) injection 1 mg 1 mg, intravenous, EVERY 2 HOURS PRN, Starting on 06/18/23 at 1347, Until 06/19/23 at 1328, Moderate Pain 4-6, Routine Given 06/19/2023 12:42 EST 1 mg Given 06/19/2023 9:16 EST 1 mg HYDROmorphone (DILAUDID) injection 1 mg 1 mg, intravenous, EVERY 1 HOUR PRN, Starting on Mon06/19/23 at 1329, Until Mon06/20/23 at 1022, Moderate Pain 4-6, Routine Given 06/20/2023 4:11 EST 1 mg HYDROmorphone (DILAUDID) injection 1.5 mg 1.5 mg, intravenous, EVERY 2 HOURS PRN, Starting on Mon06/18/23 at 1347, Until Mon06/19/23 at 1329, Severe Pain 7-10, Routine Given 06/19/2023 6:50 EST 1.5 mg Given 06/19/2023 5:02 EST 1.5 mg Given 06/19/2023 2:26 EST 1.5 mg HYDROmorphone (DILAUDID) injection 2 mg 2 mg, intravenous, EVERY 2 HOURS PRN, Starting on Mon06/19/23 at 1328, Until Mon06/20/23 at 1022, Severe Pain 7-10, Routine Given 06/20/2023 5:58 EST 2 mg Given 06/20/2023 1:43 EST 2 mg Given 06/19/2023 23:27 EST 2 mg HYDROmorphone (DILAUDID) tablet 4 mg 4 mg, oral, EVERY 4 HOURS PRN, Starting on Mon06/20/23 at 1022, Until Mon06/21/23 at 1617, Moderate Pain 4-6, Routine Given 06/20/2023 15:57 EST 4 mg HYDROmorphone (DILAUDID) tablet 8 mg 8 mg, oral, EVERY 4 HOURS PRN, Starting on Mon06/20/23 at 1022, Until Mon06/21/23 at 1617, Severe Pain 7-10, Routine Given 06/21/2023 13:48 EST 8 mg Given 06/21/2023 9:48 EST 8 mg Given 06/21/2023 5:30 EST 8 mg iohexoL (OMNIPAQUE 350) solution 100 mL 100 mL, intravenous, Once in imaging, 1 dose, Starting on 06/17/23 at 1154, Until 06/17/23 at 1227, Routine Given 06/17/2023 12:27 EST 100 mL ketOROLAC (TORADOL) injection 15 mg 15 mg, intravenous, NOW X1, 1 dose, On 06/17/24 at 0745, STAT Given 06/17/2023 8:17 EST 15 mg ketOROLAC (TORADOL) injection 15 mg 15 mg, intravenous, EVERY 6 HOURS, 4 doses, First dose on Mon06/17/23 at 2315, Last dose on Mon06/18/23 at 1715, Routine Given 2023 11:01 EST 15 mg Given 2023 4:40 EST 15 mg Given 06/17/2023 23:09 EST 15 mg ketOROLAC (TORADOL) injection 30 mg 30 mg, intravenous, EVERY 12 HOURS, 2 doses, First dose on Mon06/19/23 at 1800, Last dose on Mon06/20/23 at 0900, Routine Given 06/20/2023 8:26 EST 30 mg IV Given 06/19/2023 17:43 EST 30 mg ketOROLAC (TORADOL) tablet 10 mg 10 mg, oral, EVERY 12 HOURS, 2 doses, First dose on Mon06/20/23 at 1045, Last dose on Mon06/20/23 at 2100, Routine Given 06/21/2023 8:30 EST 10 mg Given 06/20/2023 20:02 EST 10 mg lactated ringers (LR) infusion at 100 mL/hr, intravenous, CONTINUOUS, Starting on Mon06/17/23 at 1400, Until Mon06/18/23 at 0631, Routine New Bag 2023 1:32 EST 100 mL/hr New Bag 06/17/2023 14:32 EST 100 mL/hr lactated ringers (LR) infusion at 125 mL/hr, intravenous, CONTINUOUS, Starting on Mon06/18/23 at 0830, Until Mon06/19/23 at 0029, Routine New Bag 2023 21:22 EST 125 mL/hr New Bag 2023 12:21 EST 125 mL/hr Rate Change 2023 8:30 EST 125 mL/hr lactated ringers (LR) infusion at 125 mL/hr, 2,000 mL, intravenous, CONTINUOUS, Starting on Mon06/19/23 at 1345, Until Mon06/20/23 at 0630, Routine New Bag 06/19/2023 23:24 EST 1,000 mL 125 mL/hr IV New Bag 06/19/2023 14:31 EST 2,000 mL 125 mL/hr lactated ringers BOLUS 1,000 mL 1,000 mL, intravenous, NOW X1, 1 dose, On 06/17/23 at 1300, Routine New Bag 06/17/2023 12:47 EST 1,000 mL lidocaine (XYLOCAINE) 2 % viscous solution 10 mL 10 mL, oral, NOW X1, 1 dose, On Mon06/17/23 at 1000, STAT Given 06/17/2023 9:47 EST 10 mL magnesium oxide (MAG-OX) tablet 400 mg 400 mg, oral, DAILY, First dose on Mon06/20/23 at 0900, Until Discontinued, Routine Given 06/21/2023 8:28 EST 400 mg Given 06/20/2023 8:28 EST 400 mg magnesium sulfate 2 g in water 50 mL 2 g, intravenous, Administer over 60 Minutes, DAILY, 1 dose, First dose on Mon06/18/23 at 0900, Routine, Release New Bag 2023 8:40 EST 2 g magnesium sulfate 2 g in water 50 mL 2 g, intravenous, Administer over 60 Minutes, NOW X1, 1 dose, On Mon06/18/23 at 1400, Routine New Bag 2023 13:48 EST 2 g medroxyPROGESTERone (DEPO-PROVERA) syringe 150 mg 150 mg, intramuscular, NOW X1, 1 dose, On Mon06/21/23 at 1030, Routine Given 06/21/2023 12:56 EST 150 mg Left De ltoid melatonin tablet 10.5 mg 10.5 mg (rounded from 10 mg), oral, AT BEDTIME, First dose on 06/17/23 at 2100, Until Discontinued, Routine Given 06/20/2023 20:03 EST 10.5 mg Given 06/19/2023 20:12 EST 10.5 mg Given 2023 20:04 EST 10.5 mg methadone (DOLOPHINE) concentrated solution 135 mg 135 mg, oral, DAILY, First dose on Mon06/18/23 at 1000, Until Discontinued, Routine Given 06/21/2023 8:22 EST 135 mg Given 06/20/2023 8:23 EST 135 mg Given 06/19/2023 8:09 EST 135 mg morphine PF injection 2 mg 2 mg, intravenous, NOW X1, 1 dose, On 06/17/23 at 0930, Routine Given 06/17/2023 9:19 EST 2 mg morphine PF injection 2 mg 2 mg, intravenous, NOW X1, 1 dose, On Mon06/17/23 at 1145, Routine Given 06/17/2023 11:47 EST 2 mg multivitamin-iron fumarate-FA (THERA-M PLUS) 9 mg iron-400 mcg tablet 1 Tablet 1 Tablet, oral, DAILY, 5 doses, First dose on Mon06/18/23 at 0900, Last dose on Mon06/22/23 at 0900, Routine, Release Given 06/21/2023 8:27 EST 1 Tablet Given 06/20/2023 8:27 EST 1 Tablet Given 06/19/2023 8:10 EST 1 Tablet naloxone (NARCAN) injection 0.4 mg 0.4 mg, intravenous, PRN, Starting on Mon06/18/23 at 0726, Until Mon06/21/23 at 1617, Opioid Reversal, Routine ondansetron (PF) (ZOFRAN) injection 4 mg 4 mg, intravenous, NOW X1, 1 dose, On 06/17/23 at 0745, STAT Given 06/17/2023 12:47 EST 4 mg ondansetron (PF) (ZOFRAN) injection 4 mg 4 mg, intravenous, EVERY 4 HOURS PRN, Starting on Mon06/21/23 at 0947, Until Mon06/21/23 at 1617, Nausea, Routine pantoprazole (PROTONIX) injection 40 mg 40 mg, intravenous, NOW X1, 1 dose, On Mon06/19/23 at 1400, Routine Given 06/19/2023 14:34 EST 40 mg pantoprazole (PROTONIX) injection 40 mg 40 mg, intravenous, 2 TIMES DAILY, First dose on Mon06/20/23 at 0900, Until Discontinued, Routine Given 06/20/2023 8:27 EST 40 mg IV pantoprazole (PROTONIX) tablet 40 mg 40 mg, oral, EVERY 12 HOURS, First dose on Mon06/20/23 at 2000, Until Discontinued, Routine Given 06/21/2023 8:27 EST 40 mg Given 06/20/2023 20:03 EST 40 mg polyethylene glycol 3350 (MIRALAX) packet 17 g 17 g, oral, DAILY, First dose on Mon06/19/23 at 0945, Until Discontinued, Routine Given 06/21/2023 8:24 EST 17 g Given 06/20/2023 8:29 EST 17 g Given 06/19/2023 9:47 EST 17 g potassium chloride (KAYCIEL) 20 mEq/15 mL oral solution 40 mEq 40 mEq, oral, NOW X1, 1 dose, On Mon06/18/23 at 1415, Routine Given 2023 14:14 EST 40 mEq potassium chloride (KAYCIEL) 20 mEq/15 mL oral solution 40 mEq 40 mEq, oral, DAILY, First dose on Mon06/20/23 at 0900, Until Discontinued, Routine Given 06/21/2023 8:26 EST 40 mEq Given 06/20/2023 8:25 EST 40 mEq senna (SENOKOT) tablet 2 Tablet 2 Tablet, oral, AT BEDTIME, First dose on Mon06/19/23 at 2100, Until Discontinued, Routine Given 06/20/2023 20:02 EST 2 Tablets Given 06/19/2023 20:13 EST 2 Tablets sodium chloride 0.9 % BOLUS 1,000 mL 1,000 mL, intravenous, NOW X1, 1 dose, On 06/17/23 at 0745, STAT New Bag 06/17/2023 8:17 EST 1,000 mL sodium chloride 0.9 % BOLUS 1,000 mL 1,000 mL, intravenous, NOW X1, 1 dose, On 06/17/23 at 1000, STAT New Bag 06/17/2023 9:47 EST 1,000 mL thiamine (VITAMIN B-1) 100 mg in sodium chloride (NS) 0.9 % 50 mL IVPB 100 mg, intravenous, Administer over 30 Minutes, DAILY, 5 doses, First dose on Mon06/18/23 at 0900, Last dose on Mon06/22/23 at 0900, Routine, Release Given 2023 11:00 EST 100 mg thiamine (VITAMIN B1) tablet 100 mg 100 mg, oral, DAILY, 5 doses, First dose on Mon06/18/23 at 0900, Last dose on Mon06/22/23 at 0900, Routine, Release Given 06/21/2023 8:28 EST 100 mg Given 06/20/2023 8:29 EST 100 mg Given 06/19/2023 8:10 EST 100 mg documented in this encounter Discontinued Medications Medication Sig Discontinue Reason Start Date End Da te acetaminophen (TYLENOL) 500 mg tablet Take 2 Tablets by mouth every 8 hours as needed for Pain. Therapy completed 02/13/2022 2023 VITAMIN PLUS LOW IRON 27 mg iron- 1 mg tablet tablet Take 1 Tablet by mouth daily for 360 days. Therapy completed 06/24/2022 2023 sertraline (ZOLOFT) 25 mg tablet Take 25 mg by mouth daily. Therapy completed 2023 topiramate (TOPAMAX) 25 mg tabletIndications:Alcoh ol use disorder Take 1 Tablet by mouth 2 times daily. Therapy completed 05/24/2023 2023 gabapentin (NEURONTIN) 300 mg capsule Take 2 Capsules by mouth 3 times daily. 06/04/2023 06/21/2023 documented as of this encounter Active and Recently Administered Medications Times are shown in EST. Scheduled Medication Order 06/19/2023 06/20/2023 06/21/2023 enoxaparin (LOVENOX) injection 40 mg 40 mg, subcutaneous, DAILY, First dose on 06/18/23 at 0800, Until Discontinued, Routine 0811 (Not Given - Provider: Lizet Flores RN - Reason: Patient/family refused) 0837 (Not Given - Provider: Jaki Noble RN - Reason: Patient/family refused) 0833 (Not Given - Provider: Jaki Noble RN - Reason: Patient/family refused) folic acid (FOLVITE) tablet 1 mg(Linked Group 1) 1 mg, oral, DAILY, First dose on 06/18/23 at 0900, Until Discontinued, Routine, Release 0810 (Given - Provider: Lizet Flores RN) 0828 (Given - Provider: Jaki Noble, ALLEN) 0827 (Given - Provider: Jaki Noble, ALLEN) gabapentin (NEURONTIN) capsule 300 mg 300 mg, oral, 3 TIMES DAILY, First dose on 06/17/23 at 1400, Until Discontinued, Routine 0810 (Given - Provider: Lizet Flores RN)1434 (Given - Provider: Lizet Flores RN)2011 (Given - Provider: Farheen Glass RN) 0828 (Given - Provider: Jaki Noble RN)1452 (Given - Provider: Jaki Noble RN)2002 (Given - Provider: Bertha Larry, ALLEN) 0827 (Given - Provider: Jaki Noble, ALLEN)1348 (Given - Provider: Jaki Noble, ALLEN) ketOROLAC (TORADOL) injection 30 mg (COMPLETED) 30 mg, intravenous, EVERY 12 HOURS, 2 doses, First dose on Mon06/19/23 at 1800, Last dose on Mon06/20/23 at 0900, Routine 1743 (Given - Provider: Lizet Flores RN) 08 (Given - Provider: Jaki Noble, ALLEN) ketOROLAC (TORADOL) tablet 10 mg (COMPLETED) 10 mg, oral, EVERY 12 HOURS, 2 doses, First dose on Mon06/20/23 at 1045, Last dose on Mon06/20/23 at 2100, Routine 1141 (Not Given - Provider: Jaki Noble RN - Reason: Other - Comment: had received torodol iv at 0830)2001 (Given - Provider: Bertha Larry RN) 08 (Given - Provider: Jaki Noble, ALLEN - Comment: given 2nd dose from yesterday) magnesium oxide (MAG-OX) tablet 400 mg 400 mg, oral, DAILY, First dose on Mon06/20/23 at 0900, Until Discontinued, Routine 0828 (Given - Provider: Jaki Noble RN) 08 (Given - Provider: Jaki Noble, ALLEN) medroxyPROGESTERone (DEPO-PROVERA) syringe 150 mg (COMPLETED) 150 mg, intramuscular, NOW X1, 1 dose, On Mon06/21/23 at 1030, Routine 1256 (Given - Provider: Jaki Noble, ALLEN) melatonin tablet 10.5 mg 10.5 mg (rounded from 10 mg), oral, AT BEDTIME, First dose on Mon06/17/23 at 2100, Until Discontinued, Routine 2011 (Given - Provider: Farheen Glass RN) 2002 (Given - Provider: Bertha Larry RN) methadone (DOLOPHINE) concentrated solution 135 mg 135 mg, oral, DAILY, First dose on Mon06/18/23 at 1000, Until Discontinued, Routine 08 (Given - Provider: Lizet Flores RN) 08 (Given - Provider: Jaki Noble RN) 08 (Given - Provider: Jaki Noble, RN) multivitamin-iron fumarate-FA (THERA-M PLUS) 9 mg iron-400 mcg tablet 1 Tablet 1 Tablet, oral, DAILY, 5 doses, First dose on Mon06/18/23 at 0900, Last dose on Mon06/22/23 at 0900, Routine, Release 08 (Given - Provider: Lizet Flores RN) 826 (Given - Provider: Jaki Noble RN) 826 (Given - Provider: Jaki Noble RN) pantoprazole (PROTONIX) injection 40 mg (COMPLETED) 40 mg, intravenous, NOW X1, 1 dose, On Mon06/19/23 at 1400, Routine 1434 (Given - Provider: Lizet Flores RN) pantoprazole (PROTONIX) injection 40 mg (CANCELED) 40 mg, intravenous, 2 TIMES DAILY, First dose on Mon06/20/23 at 0900, Until Discontinued, Routine 826 (Given - Provider: Jaki Noble RN) pantoprazole (PROTONIX) tablet 40 mg 40 mg, oral, EVERY 12 HOURS, First dose on Mon06/20/23 at 2000, Until Discontinued, Routine 2002 (Given - Provider: Bertha Larry RN) 826 (Given - Provider: Jaki Noble, ALLEN) polyethylene glycol 3350 (MIRALAX) packet 17 g 17 g, oral, DAILY, First dose on Mon06/19/23 at 0945, Until Discontinued, Routine 946 (Given - Provider: Lizet Flores RN) 828 (Given - Provider: Jaki Noble, ALLEN) 823 (Given - Provider: Jaki Noble, RN) potassium chloride (KAYCIEL) 20 mEq/15 mL oral solution 40 mEq 40 mEq, oral, DAILY, First dose on Mon06/20/23 at 0900, Until Discontinued, Routine 824 (Given - Provider: Jaki Noble, ALLEN) 825 (Given - Provider: Jaki Noble, ALLEN) senna (SENOKOT) tablet 2 Tablet 2 Tablet, oral, AT BEDTIME, First dose on Mon06/19/23 at 2100, Until Discontinued, Routine 2012 (Given - Provider: Farheen Glass RN) 2001 (Given - Provider: Bertha Larry RN) thiamine (VITAMIN B1) tablet 100 mg(Linked Group 2) 100 mg, oral, DAILY, 5 doses, First dose on 06/18/23 at 0900, Last dose on Mon06/22/23 at 0900, Routine, Release 0810 (Given - Provider: Lizet Flores RN) 0829 (Given - Provider: Jaki Noble, ALLEN) 0828 (Given - Provider: Jaki Noble RN) Continuous Medication Order 06/19/2023 06/20/2023 06/21/2023 lactated ringers (LR) infusion (CANCELED) at 125 mL/hr, 2,000 mL, intravenous, CONTINUOUS, Starting on Mon06/19/23 at 1345, Until Mon06/20/23 at 0630, Routine 1431 (New Bag - Provider: Lizet Flores RN)1604 (Paused - Provider: Lizet Flores RN - Comment: shower)2324 (New Bag - Provider: Farheen Glass RN) PRN Medication Order 06/19/2023 06/20/2023 06/21/2023 diphenhydrAMINE (BENADRYL) capsule 25 mg 25 mg, oral, AT BEDTIME PRN, Starting on Mon06/19/23 at 1331, Until Mon06/21/23 at 1617, Sleep, Routine 2012 (Given - Provider: Farheen Glass, ALLEN) HYDROmorphone (DILAUDID) injection 1 mg (CANCELED) 1 mg, intravenous, EVERY 2 HOURS PRN, Starting on 06/18/23 at 1347, Until Mon06/19/23 at 1328, Moderate Pain 4-6, Routine 0916 (Given - Provider: Lizet Flores RN)1242 (Given - Provider: Lizet Flores RN) HYDROmorphone (DILAUDID) injection 1 mg (CANCELED) 1 mg, intravenous, EVERY 1 HOUR PRN, Starting on Mon06/19/23 at 1329, Until Mon06/20/23 at 1022, Moderate Pain 4-6, Routine 0411 (Given - Provider: Farheen Glass RN) HYDROmorphone (DILAUDID) injection 1.5 mg (CANCELED) 1.5 mg, intravenous, EVERY 2 HOURS PRN, Starting on 06/18/23 at 1347, Until Mon06/19/23 at 1329, Severe Pain 7-10, Routine 0027 (Given - Provider: Farheen Glass RN)0226 (Given - Provider: Farheen Glass RN)0502 (Given - Provider: Farheen Glass, ALLEN)0650 (Given - Provider: Farheen Glass RN) HYDROmorphone (DILAUDID) injection 2 mg (CANCELED) 2 mg, intravenous, EVERY 2 HOURS PRN, Starting on Mon06/19/23 at 1328, Until Mon06/20/23 at 1022, Severe Pain 7-10, Routine 1650 (Given - Provider: Lizet Flores RN)2020 (Given - Provider: Farheen Glass, ALLEN)2327 (Given - Provider: Farheen Glass, ALLEN) 0143 (Given - Provider: Farheen Glass RN)0558 (Given - Provider: Farheen Glass RN) HYDROmorphone (DILAUDID) tablet 4 mg 4 mg, oral, EVERY 4 HOURS PRN, Starting on Tu06/20/23 at 1022, Until Mon06/21/23 at 1617, Moderate Pain 4-6, Routine 1557 (Given - Provider: Moira Rock RN) HYDROmorphone (DILAUDID) tablet 8 mg 8 mg, oral, EVERY 4 HOURS PRN, Starting on Mon06/20/23 at 1022, Until Mon06/21/23 at 1617, Severe Pain 7-10, Routine 2002 (Given - Provider: Bertha Larry RN) 0124 (Given - Provider: Bertha Larry RN)0530 (Given - Provider: Bertha Larry RN)0948 (Given - Provider: Jaki Noble, ALLEN)1348 (Given - Provider: Jaki Noble, ALLEN) lidocaine (PF) 10 mg/mL (1 %) injection 2 mg 2 mg, intradermal, PRN, 4 doses, Starting on 06/17/23 at 1605, Until Mon06/21/23 at 1617, peripheral intravenous catheter placement, Routine naloxone (NARCAN) injection 0.4 mg 0.4 mg, intravenous, PRN, Starting on Mon06/18/23 at 0726, Until Mon06/21/23 at 1617, Opioid Reversal, Routine ondansetron (PF) (ZOFRAN) injection 4 mg 4 mg, intravenous, EVERY 4 HOURS PRN, Starting on Mon06/21/23 at 0947, Until Mon06/21/23 at 1617, Nausea, Routine Linked Groups Order Group 1: folic acid (FOLVITE) tablet 1 mgJump to med 1 mg, oral, DAILY, First dose on Mon06/18/23 at 0900, Until Discontinued, Routine, Release Or folic acid 1 mg in sodium chloride (NS) 0.9 % 50 mL IVPB (CANCELED) 1 mg, intravenous, Administer over 30 Minutes, DAILY, First dose on Mon06/18/23 at 0900, Until Discontinued, Routine, Release Group 2: thiamine (VITAMIN B1) tablet 100 mgJump to med 100 mg, oral, DAILY, 5 doses, First dose on Mon06/18/23 at 0900, Last dose on Mon06/22/23 at 0900, Routine, Release Or thiamine (VITAMIN B-1) injection 100 mg (CANCELED) 100 mg, intramuscular, DAILY, 5 doses, First dose on Mon06/18/23 at 0900, Last dose on Mon06/22/23 at 0900, Routine, Release Or thiamine (VITAMIN B-1) 100 mg in sodium chloride (NS) 0.9 % 50 mL IVPB (CANCELED) 100 mg, intravenous, Administer over 30 Minutes, DAILY, 5 doses, First dose on Mon06/18/23 at 0900, Last dose on Mon06/22/23 at 0900, Routine, Release documented in this encounter Orders Medications Ordered That Ellis ht Not Have Been Administered Count Last Ordered Date First Ordered Date ondansetron (PF) (ZOFRAN) injection 4 mg 2 06/21/2023 06/17/2023 ondansetron (ZOFRAN-ODT) dis integrating tablet 4 mg 1 06/19/2023 HYDROmorphone (DILAUDID) inf usion 1 mg/mL 100 mL PRN/Bolus documentation 1 mg 2 2023 naloxone (NARCAN) injection 0.1 mg 3 202306/17/2023 naloxone (NARCAN) injection 0.4 mg 1 2023 acetaminophen (TYLENOL) tablet 975 mg 1 11/2023 diphenhydrAMINE (BENADRYL) capsule 25 mg 1 06/17/2023 enoxaparin (LOVENOX) injection 40 mg 1 11/2023 lidocaine (PF) 10 mg/mL (1 % ) injection 2 mg 1 06/17/2023 magnesium oxide (MAG-OX) tablet 400 mg 1 methadone (DOLOPHINE) oral solution 135 mg 1 06/17/2023 morphine (DURAMORPH) in NS 5 00 mg / 50 mL SIMULATION SOFTWARE ENGINEER 1 06/17/2023 morphine (DURAMORPH) in NS 5 00 mg/50mL PRN/Bolus documentation 2 06/17/2023 thiamine (VITAMIN B-1) injection 100 mg 1 0 06/17/2023 Diet Count Last Ordered Date First Orde red Date DISCHARGE DIET 1 06/21/2023 Nursing Count Last Ordered Date First Orde red Date ACTIVITY INSTRUCTIONS 1 06/21/2023 BATHING INSTRUCTIONS 1 06/21/2023 DRIVING INSTRUCTIONS 1 06/21/2023 CALL HOSPITALIST FOR ADM/REF HAIDER TO [facility] NURSE 1 06/17/2023 VITAL SIGNS 1 06/17/2023 Admission Count Last Ordered Date First Orde red Date ADMIT TO INPATIENT 1 06/17/2023 Transfer Count Last Ordered Date First Orde red Date ED BED REQUEST 1 06/17/2023 Discharge Count Last Ordered Date First Orde red Date DISCHARGE PATIENT 1 06/21/2023 Legal Count Last Ordered Date First Orde red Date MISCELLANEOUS DISCHARGE INSTRUCTIONS 2 06/12 documented in this encounter Care Teams Pmo Analyst Relationship Specialty Start Date End Date Trevon Boyd MD [address] [place] [address] 2 [place] [address] PCP - General Family Medicine - Primary Care 05/24/23 Eliza Rain MD [address] [place] [address] [address] [place] [address] Infectious Disease 05/24/23 Dona Casper NP CNM [address] [place] [address], [address] [place] [address] [facility] 05/24/23 documented as of this encounter
--- OUTSIDE RECORDS SUMMARY | 2024-07-06 18:47 | XMS_ITS | Encounter Summary ---
Author Organization [facility] Address [address] [place] [address] Care Team Providers Care Solar Resource Assessor Name Role Phone Trevon Boyd MD Primary Care Provider Eliza Rain MD Unavailable [phone] Dona Casper [facility] Unavailable Reason for Visit * Reason Comments Emesis Pt was seen two days ago for vomiting and pancreatitis. Pt reports vomiting since and thinks she is dehydrated. Pt also has not been able to drink and thinks she is having withdrawals. Encounter Details Date Type Department Care Team (Late st Contact Info) Description 06/03/2023 23:46 EST - 06/04/2023 4:12 EST Emergency [facility] Emergency Department [address] [place] [address] [id number] Reji Linares MD [address] [place] [address] Nausea and vomiting, unspecified vomiting type (Primary Dx); Alcohol abuse Discharge Disposition: Home or Self Care Social [...] have money to get more. Sometimes true [place] Depression Scale Answer Date Recorded [place] Depression Scale Total 9 05/16/2022 The thought [...] Sign Reading Time Taken Comments Blood Pressure 133/80 06/04/2023 0351 EST Pulse 103 06/03/2023 2354 EST Temperature 36.7 ??C (98.1 ??F) 06/03/2023 2354 EST Respiratory Rate 20 06/03/2023 2354 EST Oxygen Saturation 98% 06/04/2023 0351 EST Inhaled Oxygen Concentration - - Weight 79.4 kg (175 lb) 06/03/2023 2354 EST Height - - Body Mass Index 27 05/24/2023 1314 EST documented in this encounter Functional Status * Are you deaf or do you have serious difficulty hearing? Answer Date of Assessment Author No 06/03/2023 23:52 EST Bakari Gallagher, RN * Are you blind or do you have serious difficulty seeing, even when wearing glasses? Answer Date of Assessment Author No 02/11/2022 23:00 EDLeif Sethi, ALLEN * Do you have serious difficulty walking [...] this encounter Discharge Instructions * Discharge Instructions* Reji Linares MD - 06/04/2023 3:39 EST Consider going to a detox facility. Call Monday to [facility] with [facility] Follow-up with your men's basketball coach. Drink plenty of fluids frequently and advance diet as tolerated. Repeat Ativan for nausea/vomiting. Follow-up with PCP should symptoms persist. Return for worsening symptoms or any other concerns. * Attachments The following attachments cannot be sent through Care Everywhere. * Alcohol Withdrawal: General Info (Moroccan) documented in this encounter Medications at Time of Discharge methadone (DOLOPHINE) 10 mg tablet Take 13.5 Tablets by mouth daily. acetaminophen (TYLENOL) 500 mg tablet Take 2 Tablets by mouth every 8 hours as needed for Pain. 60 Tablet 02/13/2022 2023 gabapentin (NEURONTIN) 300 mg capsule Take 2 Capsules by mouth 3 times daily. 12 Capsule 06/04/2023 06/21/2023 VITAMIN PLUS LOW IRON 27 mg iron- 1 mg tablet tablet Take 1 Tablet by mouth daily for 360 days. 90 Tablet 3 06/24/2022 2023 sertraline (ZOLOFT) 25 mg tablet Take 25 mg by mouth daily. 2023 topiramate (TOPAMAX) 25 mg tabletIndication s:Alcohol use disorder Take 1 Tablet by mouth 2 times daily. 60 Tablet 1 05/24/2023 2023 documented as of this encounter Ordered Prescriptions Prescription Sig Dispense Quantity Refills Last Filled Start Date End Date gabapentin (NEURONTIN) 300 mg capsule Take 2 Capsules by mouth 3 times daily. 12 Capsule 06/04/2023 documented in this encounter Discharge Disposition Disposition Code Departure Means Destination Comment s Home or Self Custodial To home, no s/s of distress. documented in this encounter ED Notes * Jossue Gallagher RN - 06/04/2023 0320 EST Pt sleeping, no s/s of distress. * Jossue Gallagher RN - 06/04/2023 0220 EST Pt having dry heaves, reports feeling no different. * Wallace Perez - 06/04/2023 0028 EST 12 Lead EKG Performed by WALLACE PEREZ and shown to Reji Linares,*. * Reji Linares MD - 06/03/2023 2346 EST Emergency Department Visit Medical Decision Making 27-year-old female with a history of alcohol and opiate use disorders on maintenance methadone but still using IV opiates and drinking alcohol presents with a 2-day history of vomiting and concerns regarding persistent pancreatitis. Patient suspects she may be dehydrated at this point. No fevers orchills. Mild diffuse abdominal discomfort. No difficulty breathing. Labs obtained. Lipase only slightly above normal limits at 263 EtOH 56. Magnesium slightly low at 1.5. 2 g given. EKG obtained which showed a normal sinus rhythm at 76. Prolonged QT at 436. Incomplete right bundlebranch block. Unchanged since 09/14/2021. Reviewed patient's visit 05/31/2023. Patient had a right upper quadrant ultrasound which showed hepatic stenosis. Liver enzymes remain slightly elevated consistent with alcohol abuse however have improved since prior visit. Anion gap is within normal limits. WBCs within normal limits. Patient is afebrile. No signs of infectious or inflammatory process. Patient continues to feel nauseated. Limited treatment due to prolonged QT. Lorazepam and gabapentin given as well as phenobarbital for possible withdrawal. [facility]. Patient discharged home to follow-up with PCP should symptoms persist. Return precautions provided. An EKG was obtained and independently interpreted.Laboratory data was reviewed. Medical Decision Making Problems Addressed: Alcohol abuse: complicated acute illness or injury Nausea and vomiting, unspecified vomiting type: complicated acute illness or injury Amount and/or Complexity of Data Reviewed Labs: ordered. Risk Prescription drug management. Final diagnoses: Nausea and vomiting, unspecified vomiting type Alcohol abuse Disposition: Discharged Chief complaint: nausea and vomiting LUIS Robles is a 27 y.o. female with a history of alcohol and opiate use disorders on maintenancemethadone but still using IV opiates and drinking alcohol presents with a 2-day history of vomitingand concerns regarding persistent pancreatitis. Patient suspects she may be dehydrated at this point. No fevers or chills. Mild diffuse abdominal discomfort. No difficulty breathing. History was provided by: Patient and Records reviewed include: Chart review including ED visit 05/31/2023 for alcohol desiccation Patient's pertinent PMH, FH, SH were reviewed and edited as necessary. Nursing notes reviewed. A medical screening exam was performed. Physical Exam BP 133/80 Pulse 103 Temp 36.7 ??C (98.1 ??F) (Oral) Resp 20 Wt 79.4 kg (175 lb) SpO2 98% BMI 27.00 kg/m?? Physical Exam Vitals and nursing note reviewed. Constitutional: General: She is in acute distress. Appearance: Normal appearance. Comments: Uncomfortable HENT: Head: Normocephalic and atraumatic. Right Ear: [...] There is no mass. Tenderness: There is no abdominal tenderness. Musculoskeletal: General: No swelling or deformity. Normal range of motion. Cervical back: Normal range of motion and neck supple. Skin: General: Skin is warm and dry. Neurological: General: No focal deficit present. Mental Status: She is alert and oriented to person, place, and time. Psychiatric: Mood and Affect: Mood is anxious. Behavior: Behavior normal. Procedures Procedures documented in this encounter Plan of Treatment Not on file documented as of this encounter Procedures Procedure Name Priority Date/Time Associated Diagnosis Comments ECG REPORT - SCANNED 06/04/2023 16:36 EST MAGNESIUM STAT 06/04/2023 0:53 EST LIPASE STAT 06/04/2023 0:53 EST ETHANOL, BLOOD STAT 06/04/2023 0:53 EST COMPREHENSIVE METABOLIC PANEL (CMP) STAT 06/04/2023 0:53 EST EKG 12-LEAD STAT 06/04/2023 0:24 EST COMPLETE BLOOD COUNT AND DIFFERENTIAL STAT 06/04/2023 0:19 EST documented in this encounter Results * ECG REPORT - SCANNED (06/04/2023 16:36 EST) 06/04/2023 16:3 6 EST us Scan 2 Clinical Quality Rn PROCEDURE/MINOR SURGICAL OR DERABLES Final Result * (ABNORMAL) LIPASE (06/04/2023 0:53 EST) Lipase 263(H) <251 U/L 06/04/2023 1:15 EST [facility] Blood VENOUS BLOOD / Unknown Venipuncture / Unknown 06/04/2023 0:53 EST 06/04/2023 0:55 EST Reji Linares MD CHEMISTRY & BLOOD GAS ORDERABLES Final Result Performing Organization Address [facility]/ZIP Co de Phone Number [facility] [address] [place] [address] * (ABNORMAL) ETHANOL, BLOOD (06/04/2023 0:53 EST) Ethanol, Blood 56(H) <10 mg/dL mg/dL 06/04/2023 1:15 [facility] Comment:Healthy, non-drinkin g individuals will have an ethanol concentration of <10 mg/dL. Blood VENOUS BLOOD / Unknown Venipuncture / Unknown 06/04/2023 0:53 EST 06/04/2023 0:55 EST Narrative [facility] - 06/04/2023 1:15 EST [place] legal blood alcohol limit = 80 mg/dl (0.08%) Reji Linares MD CHEMISTRY & BLOOD GAS ORDERABLES Final Result Performing Organization Address [facility]/RUST de Phone Number [facility] [address] [place] [address] * (ABNORMAL) MAGNESIUM (06/04/2023 0:53 EST) Pathologist [facility] Magnesium 1.5(L) 1.7 - 2.8 mg/dL 06/04/2023 1:15 [facility] Blood VENOUS BLOOD / Unknown Venipuncture / Unknown 06/04/2023 0:53 EST 06/04/2023 0:55 EST Reji Linares MD CHEMISTRY & BLOOD GAS ORDERABLES Final Result Performing Organization Address [facility] Co de Phone Number [facility] [address] [place] [address] * (ABNORMAL) COMPREHENSIVE METABOLIC PANEL (CMP) (06/04/2023 0:53 EST) Sodium 138 136 - 145 mmol/L 06/04/2023 1:15 EST [facility] Potassium 3.4(L) 3.5 - 5.0 mmol/L 06/04/2023 1:15 [facility] Chloride 99 96 - 110 mmol/L 06/04/2023 1:15 [facility] CO2 Total 31 22 - 32 mmol/L 06/04/2023 1:15 [facility] Glucose 103(H) 70 - 99 mg/dl 06/04/2023 1:15 [facility] BUN 7(L) 10 - 26 mg/dL 06/04/2023 1:15 [facility] Creatinine 0.77 0.52 - 1.04 mg/dL 06/04/2023 1:15 [facility] eGFR 109 >60 mL/min/1.7 3m2 06/04/2023 1:15 [facility] Total Protein 7.3 6.3 - 8.2 g/dL 06/04/2023 1:15 [facility] Albumin 3.9 3.4 - 4.9 g/dL 06/04/2023 1:15 [facility] Alkaline Phosphatase 119 38 - 126 U/L 06/04/2023 1:15 [facility] AST 182(H) 15 - 46 U/L 06/04/2023 1:15 [facility] ALT 74(H) <35 U/L 06/04/2023 1:15 [facility] Bilirubin, Total 1.0 <1.4 mg/dL 06/04/20 1:15 [facility] Calcium 8.3(L) 8.5 - 10.5 mg/dL 06/04/2023 1:15 [facility] Albumin/Globulin Ratio 1.1 1.0 - 2.5 g/dL 06/04/2023 1:15 [facility] Anion Gap 8 5 - 14 mmol/L 06/04/2023 1:15 [facility] Blood VENOUS BLOOD / Unknown Venipuncture / Unknown 06/04/2023 0:53 EST 06/04/2023 0:55 EST us Reji Linares MD CHEMISTRY & BLOOD GAS ORDERABLES Final Result [facility] [address] [place] [address] * EKG 12-LEAD (06/04/2023 0:24 EST) 06/04/2023 0:24 EST Narrative [facility] - 06/04/2023 16:21 EST ? [facility] ? Test Date: ?2023-06-04 Pat Name: ? DESAREA SALLS ?Department: ? Room: ? B05 Gender: ? Female ? Marketing Communication Manager: ?? WRK : ?1995 ? Requested By: SURYA PANG Order Number: [id number] ? Brittany WALLS: ?? FAROOQ GRAY MD ? Measurements Intervals ?Challenge ? Rate: ? 76 ? P: ?42 [place]: ? 144 ?QRS: ?1 QRSD: ? 96 ? T: ?45 QT: ? 436 ? QTc: ?490 ? Interpretive Statements Normal sinus rhythm Incomplete right bundle branch block Prolonged QT Compared to ECG 03/24/2023 20:09:50 Incomplete right bundle-branch block now present Sinus arrhythmia no longer present I reviewed the tracing and have either agreed or edited the findings in this report. Electronically Signed On 06-04-2023 16:21:58 EST by FAROOQ GRAY MD. Procedure Note Farooq Gray MD - 06/04/2023 [facility] Test Date: 2023-06-04 Pat Name: KARIN ROBLES Department: Room: 5 Gender: Female Marketing Communication Manager: VAZQUEZ : 1995 Requested By: SURYA LUNDY Order Number: [id number] Brittany MD: FAROOQ GRAY MD Measurements Intervals Challenge Rate: 76 P: 42 [place]: 144 QRS: 1 QRSD: 96 T: 45 QT: 436 QTc: 490 Interpretive Statements Normal sinus rhythm Incomplete right bundle branch block Prolonged QT Compared to ECG 03/24/2023 20:09:50 Incomplete right bundle-branch block now present Sinus arrhythmia no longer present I reviewed the tracing and have either agreed or edited the findings inthis report. Electronically Signed On 06-04-2023 16:21:58 EST by FAROOQ HAM. us Reji Linares MD CARDIAC ECG ORDERABLES Final Result [facility] * (ABNORMAL) COMPLETE BLOOD COUNT AND DIFFERENTIAL (06/04/2023 0:19 EST) WBC 6.39 4.00 - 12.40 K/cmm 06/04/2023 0:24 [facility] RBC 5.04 3.86 - 5.04 M/cmm 06/04/2023 0:24 [facility] Hemoglobin 16.7(H) 11.6 - 15.2 g/dL 06/04/2023 0:24 [facility] HCT 47.8(H) 34.9 - 44.4 % 06/04/2023 0:24 [facility] MCV 95 81 - 98 fL 06/04/2023 0:24 [facility] MCH 33.1 26.7 - 33.3 pg 06/04/2023 0:24 [facility] MCHC 34.9 32.1 - 35.9 g/dL 06/04/2023 0:24 [facility] RDW-CV 11.9 <14.7 % 06/04/2023 0:24 [facility] RDW-SD 41.1 <50.4 fl 06/04/2023 0:24 [facility] PLT 254 141 - 377 K/cmm 06/04/2023 0:24 [facility] MPV 9.3(L) 9.5 - 12.7 fL 06/04/2023 0:24 [facility] % Neutrophils 71.2 % 06/04/2023 0:24 [facility] % Lymphocytes 18.8 % 06/04/2023 0:24 [facility] % Monocytes 9.1 % 06/04/2023 0:24 [facility] % Eosinophils 0.0 % 06/04/2023 0:24 [facility] % Basophils 0.6 % 06/04/2023 0:24 [facility] % Immature Grans 0.3 % 06/04/20 0:24 [facility] Absolute Neutrophils 4.55 2.20 - 8.85 K/cmm 06/04/2023 0:24 [facility] Absolute Lymphocytes 1.20 1.09 - 3.30 K/cmm 06/04/2023 0:24 [facility] Absolute Monocytes 0.58 0.10 - 0.80 K/cmm 06/04/2023 0:24 [facility] Absolute Eosinophils 0.00(L) 0.03 - 0.61 K/cmm 06/04/2023 0:24 [facility] ABS Basophils 0.04 0.01 - 0.11 K/cmm 06/04/2023 0:24 [facility] Absolute Immature Grans 0.02 0.00 - 0.06 K/cmm 06/04/2023 0:24 [facility] Type of Differential: Auto 06/04/2023 0:24 [facility] Blood VENOUS BLOOD / Unknown Venipuncture / Unknown 06/04/2023 0:19 EST 06/04/2023 0:22 EST Reji Linares MD PACKAGES & DNA PROBE O RDERABLES Final Result Performing Organization Address City/State/[facility] Co de Phone Number [facility] [address] [place] [phone] documented in this encounter Visit Diagnoses Diagnosis Nausea and vomiting, unspecified vomiting type- Primary Alcohol abuse Alcohol abuse, unspecified documented in this encounter Administered Medications Inactive Administered Medications - up to 3 most recent administrations Medication Order MAR Action Action Date Dose Rate Site gabapentin (NEURONTIN) tablet 600 mg 600 mg, oral, NOW X1, 1 dose, On 06/04/23 at 0415, STAT Given 06/04/2023 3:52 EST 600 mg LORazepam (ATIVAN) injection 1 mg 1 mg, intravenous, NOW X1, 1 dose, On 12/24/23 at 0300, STAT Given 06/04/2023 2:37 EST 1 mg LORazepam (ATIVAN) tablet 1 mg 1 mg, oral, NOW X1, 1 dose, On 06/04/23 at 0400, STAT Given 06/04/2023 3:47 EST 1 mg magnesium sulfate 2 g in water 50 mL 2 g, intravenous, Administer over 60 Minutes, NOW X1, 1 dose, On 06/04/23 at 0145, STAT New Bag 06/04/2023 1:41 EST 2 g PHENobarbital (LUMINAL) injection 260 mg 260 mg, intravenous, NOW X1, 1 dose, On 06/04/23 at 0145, STAT Given 06/04/2023 1:38 EST 260 mg sodium chloride 0.9 % BOLUS 1,000 mL 1,000 mL, intravenous, NOW X1, 1 dose, On 06/04/23 at 0100, STAT New Bag 06/04/2023 0:37 EST 1,000 mL sodium chloride 0.9 % BOLUS 1,000 mL 1,000 mL, intravenous, NOW X1, 1 dose, On 06/04/23 at 0300, STAT New Bag 06/04/2023 2:49 EST 1,000 mL documented in this encounter Active and Recently Administered Medications Times are shown in EST. Scheduled Medication Order 06/02/2023 06/03/2023 06/04/2023 gabapentin (NEURONTIN) tablet 600 mg (COMPLETED) 600 mg, oral, NOW X1, 1 dose, On 06/04/23 at 0415, STAT 0352 (Given - Provid er: Tori Posadas RN) LORazepam (ATIVAN) injection 1 mg (COMPLETED) 1 mg, intravenous, NOW X1, 1 dose, On 06/04/23 at 0300, STAT 0237 (Given - Provid er: Jossue Gallagher RN) LORazepam (ATIVAN) tablet 1 mg (COMPLETED) 1 mg, oral, NOW X1, 1 dose, On 06/04/23 at 0400, STAT 0347 (Given - Provid er: Tori Posadas RN) magnesium sulfate 2 g in water 50 mL (COMPLETED) 2 g, intravenous, Administer over 60 Minutes, NOW X1, 1 dose, On 06/04/23 at 0145, STAT 0141 (New Bag - Prov ider: Jossue Gallagher RN)0239 (Completed - Provider: Jossue Gallagher RN) PHENobarbital (LUMINAL) injection 260 mg (COMPLETED) 260 mg, intravenous, NOW X1, 1 dose, On 06/04/23 at 0145, STAT 0138 (Given - Provid er: Jossue Gallagher RN)0147 (Completed - Provider: Jossue Gallagher RN) sodium chloride 0.9 % BOLUS 1,000 mL (COMPLETED) 1,000 mL, intravenous, NOW X1, 1 dose, On 06/04/23 at 0100, STAT 0037 (New Bag - Prov ider: Jossue Gallagher RN)0242 (Completed - Provider: Jossue Gallagher RN) sodium chloride 0.9 % BOLUS 1,000 mL (COMPLETED) 1,000 mL, intravenous, NOW X1, 1 dose, On 06/04/23 at 0300, STAT 0249 (New Bag - Prov ider: Jossue Gallagher RN)0357 (Completed - Provider: Jossue Gallagher RN) documented in this encounter Care Teams Solar Resource Assessor Relationship Specialty Start Date End Date Trevon Boyd MD [address] [place] [address] [address] [place] [address] PCP - General Family Medicine - Primary Care 05/24/23 Eliza Rain MD [address] [place] [address] [address] [place] [address] Infectious Disease 05/24/23 Dona Casper NP CNM [address] [place] [address], [address] [place] [address] Bottle Tester Midwifery 05/24/23 documented as of this encounter
--- OUTSIDE RECORDS SUMMARY | 2024-07-06 18:47 | XMS_ITS | Encounter Summary ---
Author Organization [facility] Address [address] [place] [address] Care Team Providers Care Corporate Law Specialist Name Role Phone Trevon Boyd MD Primary Care Provider Eliza Rain MD Unavailable [phone] Dona Casper CYBER ANALYST [facility] Unavailable Reason for Visit * Reason Onset Date Comments Medications Refill 12/06/2023 Appointment Related 12/06/2023 Encounter Details Date Type Department Care Team (Late st Contact Info) Description 12/06/2023 Refill [facility] Family Medicine [address], [facility] [address] [place] [address] Trevon Boyd MD [address] [place] [address] [address] [place] [address] Medications Refill; Appointment Related Social History Tobacco Use Types [...] in a alf (including now)? No 2023 [place] Depression Scale Answer Date Recorded [place] Depression Scale Total 9 05/16/2022 The thought [...] Andrea Serra RN documented in this encounter Ordered Prescriptions Prescription Sig Dispense Quantity Refills Last Filled Start Date End Date gabapentin (NEURONTIN) 300 mg capsuleIndications :Alcohol use disorder Take 1 Capsule by mouth 3 times daily. 90 Capsule 3 12/06/2023 documented in this encounter Miscellaneous Notes * Telephone Encounter - Timothy Casarez - 12/06/2023 1415 EDT [facility] and scheduled a f/u on December 28 @1630 * Telephone Encounter - Flores Wilder LPN - 12/06/2023 1113 EDT E to front office for scheduling as per KJ below. * Telephone Encounter - Trevon Boyd MD - 12/06/2023 1108 EDT 1. Prescription renewed 2. She also is overdue for follow-up in the office. Suggest routine office visit follow-up in the next month * Telephone Encounter - Yana Malloy RN - 12/06/2023 1042 EDT Admitted in jun for alcohol pancreatitis. Ov may 2023 Last filled jun 21 for 3 refills * Telephone Encounter - Shannon Correa - 12/06/2023 1022 EDT Patient states she needs more gabap[facility] (NEURONTIN) [facility] [place] [facility] [place] She scheduled f/u OV with KJ 12/28. Please advise documented in this encounter Plan of Treatment Not on file documented as of this encounter Visit Diagnoses Diagnosis Alcohol use disorder- Primary documented in this encounter Discontinued Medications Medication Sig Discontinue Reason Start Date End Da te gabapentin (NEURONTIN) 300 mg capsule Take 1 Capsule by mouth 3 times daily. Reorder 06/21/2023 12/06/2023 documented as of this encounter Care Teams Corporate Law Specialist Relationship Specialty Start Date End Date Trevon Boyd MD [address] [place] [address] [address] [place] [phone] PCP - General Family Medicine - Primary Care 05/24/23 Eliza Rain MD [address] [place] [address] [address] [place] [phone] Infectious Disease 05/24/23 Dona Casper NP CN [address] [place] [address], [address] [place] [phone] Academic Affairs Manager Midwifery 05/24/23 documented as of this encounter
--- OUTSIDE RECORDS SUMMARY | 2024-07-06 18:47 | XMS_ITS | Encounter Summary ---
Author Organization [facility] Address [address] [place] [address] Care Team Providers Care Product Inspection Supervisor Name Role Phone Trevon Boyd MD Primary Care Provider Eliza Rain MD Unavailable [phone] Dona Casper CAR DUMPER OPERATOR HELPER CN Unavailable Encounter Details Date Type Department Care Team (Latest Contact Info) Description 06/17/2023 Travel Social History Tobacco Use Types Packs/Day [...] in a retirement (including now)? No 2023 [place] Depression Scale Answer Date Recorded [place] Depression Scale Total 9 05/16/2022 The thought [...] Assessment Author No 06/03/2023 23:52 EST Bakari Gallagher RN * Are you blind or do [...] on filedocumented in this encounter Care Teams Product Inspection Supervisor Relationship Specialty Start Date End Date Trevon Boyd MD [address] [place] [address] [address] [place] [address] PCP - General Family Medicine - Primary Care 05/24/23 Eliza Rain MD [address] [place] [address] [address] [place] [address] Infectious Disease 05/24/23 Dona Casper, HUYEN CNJose [address] [place] [address], [address] [place] [address] Mushroom Spawn Maker Midwifery 05/24/23 documented as of this encounter
--- OUTSIDE RECORDS SUMMARY | 2024-07-06 18:47 | XMS_ITS | Encounter Summary ---
Author Organization [facility] Address [address] [place] [address] Care Team Providers Care Damper Maker Name Role Phone Trevon Boyd MD Primary Care Provider Eliza Rain MD Unavailable [phone] Dona Casper NP [facility] Unavailable Reason for Visit * Reason Onset Date Comments Patient Information Update 06/23/2023 [facility] Appointment Related 06/23/2023 Encounter Details Date Type Department Care Team ([facility] st Contact Info) Description 06/23/2023 Telephone [facility] [place] Medicine - [address], [facility] [address] [place] [address] Trevon Boyd MD [address] [place] [address] [address] [place] [address] Patient Information Update ([facility]); Appointment Related Social History Tobacco Use Types [...] place to sleep or slept in a prison (including now)? No 2023 [place] Depression Scale Answer Date Recorded [place] Depression Scale Total 9 05/16/2022 The thought [...] Andrea Serra RN documented in this encounter Miscellaneous Notes * Telephone Encounter - Regina Banks RN - 07/07/2023 1633 EST TCM Nurse Follow-up Hospital review: Personally review discharge summary including instructions and recommended follow-up (include briefsummary below): Completed, pt remains alcohol free Review patient understanding of hospitalization, instructions, and follow-up: reviewed Ongoing symptoms or concerns: occasional lightheadedness when going from sit to stand Care needs and barriers: Outstanding follow-up needs (ie visits, consults, testing, imaging, home health, primary care nurse, DME): none Med reconciliation: Completed Barriers to care: none PCP follow-up: Schedule TCM visit within 14 with PCP: Date: 07/12 Provider: JASMEET * Telephone Encounter - Shannon Correa - 07/07/2023 8720 EST Patient cancelled her apt today as she is too busy to come she said, will call later to r/s. The number pt called us from was [phone] if her contact number is not working. * Telephone Encounter - Christina Valenzuela RN - 07/07/2023 0907 EST Pt has appt today w/ KJ. Closing TE * Telephone Encounter - Regina Banks RN - 06/29/2023 0900 EST LMTCB. Front- Please contact Pod 1 triage when pt calls back. If unavailable, please take message and update TE. * Telephone Encounter - Beverly Rogers - 06/28/2023 1114 EST Pt called back. Pt has an appt already scheduled 07/07 for follow up for pancreatitis. * Telephone Encounter - Regina Banks RN - 06/27/2023 1014 EST LMTCB. Pt needs to r/s OV w PCP. Front- Please contact Pod 1 triage when pt calls back. If unavailable, please take message and update TE. * Telephone Encounter - Beverly Rogers - 06/23/2023 0943 EST Nursing please complete TCM call. Admit Date: 06/17/23 Discharge Date: 06/21/23 Facility: [facility] [place]charge Location: home Diagnosis: pancreatitis documented in this encounter Plan of Treatment Not on file documented as of this encounter Visit Diagnoses Not on filedocumented in this encounter Care Teams Damper Maker Relationship Specialty Start Date End Date Trevon Boyd MD [address] [place] [phone] PCP - General Family Medicine - Primary Care 05/24/23 Eliza Rain MD [address] [place] [address] [address] [place] [address] Infectious Disease 05/24/23 Dona Casper NP Jose [address] [place] [address], [address] [place] [address] Equipment Scheduler Midwifery 05/24/23 documented as of this encounter
--- OUTSIDE RECORDS SUMMARY | 2024-07-06 18:47 | XMS_ITS | Encounter Summary ---
Author Organization [facility] Address [address] [place] [address] Care Team Providers Care Supervisor Edging Name Role Phone Trevon Boyd MD Primary Care Provider Eliza Rain MD Unavailable [phone] Dona Casper SLIDING JOINT MAKER CNM Unavailable Encounter Details Date Type Department Care Team (Latest Contact Info) Description 05/31/2023 Travel Social History Tobacco Use Types Packs/Day [...] have money to get more. Sometimes true [place] Depression Scale Answer Date Recorded [place] Depression Scale Total 9 05/16/2022 The thought [...] on filedocumented in this encounter Care Teams Supervisor Edging Relationship Specialty Start Date End Date Trevon Boyd MD [address] [place] [phone] PCP - General Family Medicine - Primary Care 05/24/23 Eliza Rain MD [address] [place] [address] [address] [place] [phone] Infectious Disease 05/24/23 Dona Casper NP CNM [address] [place] [address], [address] [place] [address] Sofa Back Upholsterer Midwifery 05/24/23 documented as of this encounter
--- OUTSIDE RECORDS SUMMARY | 2024-07-06 18:47 | XMS_ITS | Encounter Summary ---
Author Organization [facility] Address [address] [place] [address] Care Team Providers Care Firearms Expert Name Role Phone Trevon Boyd MD Primary Care Provider Eliza Rain MD Unavailable [phone] Dona Casper [facility] Unavailable Reason for Visit * Reason Onset Date Comments Medications Refill 06/15/2023 Encounter Details Date Type Department Care Team (Late st Contact Info) Description 06/15/2023 Telephone [facility] [place] [address], [address] [place] [address] Trevon Boyd MD [address] [facility] [address] [place] [address] Medications Refill Social History Tobacco Use Types [...] place to sleep or slept in a senior care (including now)? No 2023 [place] Depression Scale Answer Date Recorded [place] Depression Scale Total 9 05/16/2022 The thought [...] Telephone Encounter - Regina Banks RN - 06/20/2023 1410 EST Pt currently hospitalized. Closing TE * Telephone Encounter - Shannon Correa - 06/15/2023 1423 EST ED started patient on Gabapentin 600 mg's 3x/day, this is really helping her with detox withdrawals. She ran out of Gabapentin and needs more RICH[place]DS[place]. Send to [facility] in [place], send enough to get herthrough till 06/23 OV with KJ. documented in this encounter Plan of Treatment Not on file documented as of this encounter Visit Diagnoses Not on filedocumented in this encounter Care Teams Firearms Expert Relationship Specialty Start Date End Date Trevon Boyd MD [address] [place] [phone] PCP - General Family Medicine - Primary Care 05/24/23 Eliza Rain MD [address] [place] [phone] Infectious Disease 05/24/23 Dona Casper NP CNM [address] [place] [address], [address] [place] [address] Clinical Sciences Professor Midwifery 05/24/23 documented as of this encounter
--- OUTSIDE RECORDS SUMMARY | 2024-07-06 18:47 | XMS_ITS | Encounter Summary ---
Author Organization [facility] Address [address] [place] [address] Care Team Providers Care Reliability Technicians Name Role Phone Trevon Boyd MD Primary Care Provider Eliza Rain MD Unavailable [phone] Dona Casper [facility]EMENT[facility] Unavailable Reason for Visit * Reason Comments Medications Refill Encounter Details Date Type Department Care Team (Late st Contact Info) Description 05/24/2023 Refill [facility] Family Medicine [address], [facility] 2 [place] [address] Trevon Boyd MD [address] [place] [address] [address] [place] [address] Medications Refill Social History Tobacco [...] have money to get more. Sometimes true [place] Depression Scale Answer Date Recorded [place] Depression Scale Total 9 05/16/2022 The thought [...] encounter Miscellaneous Notes * Telephone Encounter - Reyna Lopez, ALLEN - 05/31/2023 1521 EST This refill request was initiated by the pharmacy, not the pt. Likely auto- renewal due to no more refills. * Telephone Encounter - Trevon Boyd MD - 05/26/2023 0748 EST Please contact the patient No-additional refill not appropriate This was purposely only filled for 1 month as this will be undoubtably changed at follow-up visit in 4 weeks * Telephone Encounter - Marissa Amaya RN - 05/25/2023 1429 EST Topiramate was filled on 05/24/23 To provider to cancel refill request documented in this encounter Plan of Treatment Not on file documented as of this encounter Visit Diagnoses Diagnosis Alcohol use disorder- Primary documented in this encounter Care Teams Reliability Technicians Relationship Specialty Start Date End Date Trevon Boyd MD [address] [place] [address] [address] [place] [address] PCP - General Family Medicine - Primary Care 05/24/23 Eliza Rain MD [address] [place] [address] 2 [place] [address] Infectious Disease 05/24/23 Dona Casper NP CNM [address] [place] [address], [address] [place] [address] Patch Machine Operator Midwifery 05/24/23 documented as of this encounter
--- OUTSIDE RECORDS SUMMARY | 2024-07-06 18:47 | XMS_ITS | Encounter Summary ---
Author Organization [facility] Address [address] [place] [address] Care Team Providers Care Puddler Pile Driving Name Role Phone Trevon Boyd MD Primary Care Provider Eliza Rain MD Unavailable [phone] [facility] Unavailable Reason for Visit * Reason Comments Follow-up ED Encounter Details Date Type Department Care Team (Late st Contact Info) Description 05/24/2023 13:00 EST Office Visit [facility] Family Medicine [address], [address] [place] [address] Trevon Boyd MD [address] [place] [address] [address] [place] [address] Alcohol use disorder (Primary Dx); Alcohol-induced acute pancreatitis, unspecified complication status; Encounter for immunization; Subacute maxillary sinusitis; Alcoholic liver disease (HCC-CMS); Chronic hepatitis C without hepatic coma (HCC-CMS) Social History Tobacco Use Types Packs/Day Years Used Date Smoking Tobacco: Never Smokeless Tobacco: Never Tobacco Cessation:Counseling Given: Not Answered Alcohol Use Standard Drinks/Week Comments Not Currently [...] have money to get more. Sometimes true [place] Depression Scale Answer Date Recorded [place] Depression Scale Total 9 05/16/2022 The thought [...] Sign Reading Time Taken Comments Blood Pressure 122/81 05/24/2023 1314 EST Pulse 100 05/24/2023 1451 EST rechweck Temperature 37 ??C (98.6 ??F) 05/24/2023 1314 EST Respiratory Rate 14 05/24/2023 1314 EST Oxygen Saturation 95% 05/24/2023 1314 EST Inhaled Oxygen Concentration - - Weight 79.4 kg (175 lb) 05/24/2023 1314 EST Height 171.5 cm (5' 7.5) 05/24/2023 1314 EST Body Mass Index 27 05/24/2023 1314 EST [...] Leif Antonio RN documented in this encounter Ordered Prescriptions Prescription Sig Dispense Quantity Refills Last Filled Start Date End Date amoxicillin-clavul anate (AUGMENTIN) 875-125 mg per tabletIndications: Subacute maxillary sinusitis Take 1 Tablet by mouth 2 times daily for 10 days. 20 Tablet 05/24/2023 06/03/2023 topiramate (TOPAMAX) 25 mg tabletIndications: Alcohol use disorder Take 1 Tablet by mouth 2 times daily. 60 Tablet 1 05/24/2023 2023 documented in this encounter Progress Notes * Trevon Boyd MD - 05/24/2023 1300 EST Primary Care Office Visit Assessment & Plan Problem #1. Alcohol use disorder which is main focus of visit. Associated problems below including prior pancreatitis and alcohol liver disease. Patient is motivated to decrease and hopefully quit alcohol. We discussed methods. Given current usage we did discuss briefly Antabuse which [facility] admission to her but she is not a candidate for this. Also cannot use naltrexone with methadone use. I think Topamax would be a good option for her. We discussed that hopefully should help reduce cravings and assist with her tapering down on alcohol use He was cautioned not to drink abruptly given amount she would be at risk for withdrawals Plan. 1. Topamax 25 mg twice daily. Will continue this for the next 4 weeks and if tolerating well plan would be to increase this to 50 mg twice a day at next visit 2. Discussed gradually tapering off alcohol over the next 2 to 4 weeks 3. Follow-up in 3 weeks 4. Lab-CBC, metabolic panel, pro time, lipase Pulm #2. Recent alcohol pancreatitis. Clinically resolved and doing well Plan. 1. Recheck labs as noted above Problem #3. Alcohol-related liver disease-hepatitis given degree of elevated transaminases. Reviewed that management of this is largely alcohol cessation Plan. Alcohol treatment plan as noted above 2. Labs as noted above Problem #4 . Prior history of hepatitis C successfully treated Plan. Recheck hepatitis C RNA Problem #5. Health maintenance-discussed routine follow-up at some point next year with [facility] DEVELOPMENT SPECIALIST MANAGER. Patient does not have heavy menses. Currently using condoms for control Also discussed immunizations. She was considering flu and COVID ultimately declined today but will consider this at next visit Plan. 1. encouraged her to follow-up with MANPOWER DEVELOPMENT SPECIALIST MANAGER in the next year encouraged her to make appointment 2. Consider flu and COVID-vaccine at next visit Diagnoses and all orders for this visit: Alcohol use disorder - topiramate (TOPAMAX) 25 mg tablet Alcohol-induced acute pancreatitis, unspecified complication status - COMPLETE BLOOD COUNT - COMPREHENSIVE METABOLIC PANEL (CMP) - LIPID PROFILE (INCLUDES CHOLESTEROL, TRIGLYCERIDES, HDL, LDL) - LIPASE Encounter for immunization Subacute maxillary sinusitis - amoxicillin-clavulanate (AUGMENTIN) 875-125 mg per tablet Alcoholic liver disease (HCC-CMS) - PROTIME Chronic hepatitis C without hepatic coma (HCC-CMS) - HCV RNA DETECT QUANT Return in about 4 weeks (around 06/21/2023) for follow up, 15 minutes pancreatitis. Patient education was direct. Barriers were assessed and addressed as needed. I spent a total of 45 minutes on the date of this encounter meeting with the patient and reviewing documentation/coordinating care as described in the above note. Unless otherwise noted, no procedures were performed at the time of the visit. Walter Frazier is a 27 y.o. female presenting with Follow-up (ED) HPI Reason for visit-new patient-alcohol use and associated complications 27-year-old who lives locally. Lives with fianc?? and young son in the [place] area. Accompanied by [id number] Patient's not had a primary care provider in some time. She does have a significant history recently of alcohol use disorder. Patient does acknowledge this and describes drinking about 1 bottle of vodka a day which is probably about 5-6 servings of alcohol. She has been doing this for some time. She is quite interested motivated to try to address this now. She had been seen at the ER at [facility] about 6 to 7 weeks ago for alcohol-related pancreatitis. She able to manage this on her own and this the symptoms have resolved. However still drinking heavily We did review that her liver tests remain elevated at that time. She has not had any history of withdrawals or blackout from this. She also has a history of opiate use disorder. She is on methadone through the [facility]. She is on take-home regimen now. This seems to be stable. Remote history of IV drug use. No drug use now otherwise. She was hepatitis C positive. She was successfully treated earlier this year. At follow-up hep C screen hep C RNA was negative. She parent was to have this was due to have this rechecked but has not had this checked again. We discussed rechecking with upcoming labs She was negative for HIV with recent evaluation. She also has had upper respiratory congestion with purulent rhinorrhea and maxillary pain Weeks if not longer. This is been intermittent. No acute fever. No respiratory complaints otherwise She is a non-smoker During recent ER visit liver function tests elevated. Presumed also secondary to alcohol related liver disease She has not undertaken any treatment otherwise under guidance of medical provider for alcohol with management Data reviewed this visit: problem list/past medical history, current medications, and allergies ROS - See HPI Objective BP 122/81 (BP Cuff Location: Left arm, BP Patient Position: Sitting, BP Cuff Sizes: Adult, regular) Pulse (!) 117 Resp 14 Ht 171.5 cm (67.5) Wt 79.4 kg (175 lb) SpO2 95% BMI 27.00 kg/m?? Physical Exam General-alert, lucid, no distress Ears-TMs hodges, canals clear bilaterally Mouth/throat-moist, no erythema or exudate Nose-clear Neck-no lymphadenopathy, no thyromegaly Chest-clear to auscultation Cardiovascular-regular rate rhythm, no murmur borderline tachycardia Abdomen-positive bowel sounds, soft, nontender palpation, no organomegaly Extremities-no edema Skin-no rash or jaundice documented in this encounter Plan of Treatment Scheduled Orders Name Type Priority Associated Diagnoses Orde r Schedule HCV RNA DETECT QUANT Lab Routine Chronic hepatitis C without hepatic coma (HCC-CMS) Ordered: 05/24/2023 PROTIME Lab Routine Alcoholic liver disease (HCC-CMS) Ordered: 05/24/2023 documented as of this encounter Visit Diagnoses Diagnosis Alcohol use disorder- Primary Alcohol-induced acute pancreatitis, unspecified complication status Encounter for immunization Need for other specified prophylactic vaccination against single bacterial disease Subacute maxillary sinusitis Acute maxillary sinusitis Alcoholic liver disease (HCC-CMS) Alcoholic liver damage, unspecified Chronic hepatitis C without hepatic coma (HCC-CMS) Chronic hepatitis C without mention of hepatic coma documented in this encounter Care Teams Puddler Pile Driving Relationship Specialty Start Date End Date Trevon Boyd MD [address] [place] [address] [address] [place] [phone] PCP - General Family Medicine - Primary Care 05/24/23 Eliza Rain MD [address] [place] [address] [address] [place] [address] Infectious Disease 05/24/23 Dona Casper NP CNM [address] [place] [address], [address] [place] [address] Coating Machine Operator Helper Midwifery 05/24/23 documented as of this encounter
--- OUTSIDE RECORDS SUMMARY | 2024-07-06 18:47 | XMS_ITS | Encounter Summary ---
Author Organization [facility] Address [address] [place] [address] Care Team Providers Care Downstream Biomanufacturing Technician Name Role Phone None, Provider Primary Care Provider Unavailabl e Trevon Boyd MD Primary Care Provider Eliza Rain MD Unavailable [phone] Dona Casper NP [facility] Unavailable Encounter Details Date Type Department Care Team (Late st Contact Info) Description 03/29/2023 Specialty Pharmacy [facility] - Main [place] [address] [place], [place] [address] Alicia Boyd [facility] Social History Tobacco Use Types Packs/Day Years [...] have money to get more. Sometimes true [place] Depression Scale Answer Date Recorded [place] Depression Scale Total 9 05/16/2022 The thought [...] on filedocumented in this encounter Care Teams Downstream Biomanufacturing Technician Relationship Specialty Start Date End Date None, Provider PCP - General 09/16/22 05/23/23 Trevon Boyd MD [address] [place] [phone] PCP - General Family Medicine - Primary Care 05/24/23 Eliza Rain MD [address] [place] [address] [address] [place] [address] Infectious Disease 05/24/23 Dona Casper NP CNM [address] [place] [address] [address] [place] [address] Multiple Spindle Router Operator Midwifery 05/24/23 documented as of this encounter
--- OUTSIDE RECORDS SUMMARY | 2024-07-06 18:48 | XMS_ITS | Encounter Summary ---
Author Organization [facility] Address [address] [place] [address] Care Team Providers Care Cdl Team Truck Driver Name Role Phone Martha Saavedra Noe Harjeet [facility] Primary Care Provi devon Encounter Details Date Type Department Care Team (Late st Contact Info) Description 08/15/2022 Specialty Pharmacy [facility] - Main [place] [address] [place] [address] Alicia Boyd [facility] Social History Tobacco Use Types Packs/Day Years [...] have money to get more. Sometimes true [place] Depression Scale Answer Date Recorded [place] Depression Scale Total 9 05/16/2022 The thought [...] hearing? Answer Date of Assessment Author No 02/11/2022 23:00 Leif Antonio RN * Are you blind or do [...] Leif Antonio RN documented in this encounter Progress Notes * Alicia Boyd, [facility] - 08/15/2022 1034 EST [facility] Specialty Pharmacy Medication Therapy Follow Up: Karin Dixon is a 27 y.o. female being treated with Mavyret x8 weeks for Hepatitis C. Treatment information: Prescriber:??Dr. Rain ([facility]) Regimen:??Mavyret x8 weeks Genotype:??3 Treatment:??Naive Cirrhosis:??N Fibrosis Stage:??Fib-4 score: 0.89 HBV Status:??Started vaccine series 07/11/22 Social Hx:??h/o substance use disorder?? Specialty Pharmacy:??[facility] ?? Start date: 07/29/2022 Est End Date: 09/23/22 Est SVR12 Lab: 12/16/22 Lab: [facility] Week Date SCr Hct/Hgb AST ALT HCV RNA Quant Pretreatment 07/08/2022 0.86 42.0/14.1 107 139 277,000 4 N/A? 12 post-tx ? I completed a complete review of the patient's current medical record, including medications, allergies and immunizations. There are pertinent drug-drug interactions at this time. Adherence: Patient has not missed any doses since last follow-up, as determined via patient self-report. Side effects/toxicities: Patient has been experiencing headaches which require acetaminophen as needed. At times the headaches have been so bad she has had to get help taking care of her children. However, she is motivated to take all the medication and has not missed any doses because of the headaches. She hasn't had one in 2-3 days and hopes this means this side effect is getting better. Assessment: Karin is on track to finish Mavyret as prescribed. Education Provided: Reviewed lab work requirements Follow-up planned: - Clinic appointment: per [facility] - Phone call: At end of treatment around 09/23/22 - Laboratory monitoring: Est SVR12 Lab: 12/16/22 - Next refill due: Refills complete Alicia Boyd, PharmD, BCACP (she/her) Lumber Kiln Operator Pharmacist [facility] Specialty Pharmacy 08/15/2022 documented in this encounter Plan of Treatment Not on file documented as of this encounter Visit Diagnoses Not on filedocumented in this encounter Care Teams Cdl Team Truck Driver Relationship Specialty Start Date End Date Martha Saavedra FNP [address] [place] [address],[address] [place] [address] PCP - General 02/01/17 09/15/22 documented as of this encounter
--- OUTSIDE RECORDS SUMMARY | 2024-07-06 18:48 | XMS_ITS | Encounter Summary ---
Author Organization [facility] Address [address] [place] [address] Care Team Providers Care Head Of Biology Name Role Phone Martha Saavedra Noe Harjeet [facility] Primary Care Provi devon Encounter Details Date Type Department Care Team (Latest Contact Info) Description 02/20/2022 Encounter Social History Tobacco Use Types Packs/Day Years [...] have money to get more. Sometimes true Interpersonal Safety Answer Date Record ed Physically [...] on filedocumented in this encounter Care Teams Head Of Biology Relationship Specialty Start Date End Date Martha Saavedra FNP [address] [place] [address],[address] [place] [address] PCP - General 02/01/17 09/15/22 documented as of this encounter
--- OUTSIDE RECORDS SUMMARY | 2024-07-06 18:48 | XMS_ITS | Encounter Summary ---
Author Organization [facility] Address [address] [place] [address] Care Team Providers Care Shared Services Manager Name Role Phone Martha Saavedra Noe Harje[facility] Primary Care Provi devon Reason for Visit * Reason Onset Date Comments Post- Care 04/15/2022 delivered at [facility] would like pp visit here. Encounter Details Date Type Department Care Team (Late st Contact Info) Description 04/15/2022 Telephone [facility] - [facility] [address] [place] [address] Denice Quiles MD [address] [facility], [address] [place] [address] Post- Care (delivered at [facility] would like pp visit here. ) Social History Tobacco Use Types Packs/Day Years [...] encounter Miscellaneous Notes * Telephone Encounter - Keila Hammonds RN - 04/19/2022 1116 EST Pt states she delivered in [facility] and would like to have her pp physical w/us as she has transportation issues and she was seen in the first part of her here. She is having vulvovaginal itching that is ongoing and she would like to be started back on antidepressant Pt states she is safe, shehas two counselors, one r/t her hx of substance use and a mental health counselor. She said she just wants to restart her med as it helped in the past. Pt scheduled for pp phys w/HUYEN Gupta on 04/21/2022. * Telephone Encounter - Keila Hammonds RN - 04/15/2022 1646 EDT Tried pt phone but she did not answer and her vm is full. * Telephone Encounter - Elizabeth Mata - 04/15/2022 1521 EDT Pp pt was seen at until about 26 weeks then we transferred her to [facility] for rest of , pt would like to schedule her PP visit here as she is having transportation issues. She wanted to mention that sometimes when she goes to the bathroom that it hurts. She had a vaginal delivery 02/11/2022 documented in this encounter Plan of Treatment Not on file documented as of this encounter Visit Diagnoses Not on filedocumented in this encounter Care Teams Shared Services Manager Relationship Specialty Start Date End Date Martha Saavedra FNP [address] [facility],[address] [place] [address] PCP - General 02/01/17 09/15/22 documented as of this encounter
--- OUTSIDE RECORDS SUMMARY | 2024-07-06 18:48 | XMS_ITS | Encounter Summary ---
Author Organization [facility] Address [address] [place] [address] Care Team Providers Care Stage Director Name Role Phone None, Provider Primary Care Provider Unavailabl e Encounter Details Date Type Department Care Team (Latest Contact Info) Description 09/16/2022 Travel Social History Tobacco Use Types Packs/Day [...] have money to get more. Sometimes true [place] Depression Scale Answer Date Recorded [place]ison Depression Scale Total 9 05/16/2022 The thought [...] file Not on file Not on file COVID-19 Exposure Response Date Recorded In the last 10 days, have patrick seo been in contact with someone who was confirmed or suspected to have Coronavirus/COVID-19? No / Unsure 09/16/2022 15:25 EDT documented as of this encounter Functional Status [...] on filedocumented in this encounter Care Teams Stage Director Relationship Specialty Start Date End Date None, Provider PCP - General 09/16/22 05/23/23 documented as of this encounter
--- OUTSIDE RECORDS SUMMARY | 2024-07-06 18:48 | XMS_ITS | Encounter Summary ---
Author Organization [facility] Address [address] [place] [address] Care Team Providers Care Sheetmetal Trades Worker Name Role Phone Martha Saavedra [facility] Primary Care Provi devon Encounter Details Date Type Department Care Team (Late st Contact Info) Description 05/17/2022 Orders Only [facility] - [facility] Infectious Disease [address] [facility], [place] [address] Jeannette Mccann, RN [address] [place] [address] [phone] Chronic hepatitis C without hepatic coma (HCC-CMS) (Primary Dx) Social History Tobacco Use Types Packs/Day Years [...] have money to get more. Sometimes true [place] Depression Scale Answer Date Recorded Harrison Depression Scale Total 9 05/16/2022 The thought [...] suspected to have Coronavirus/COVID-19? No / Unsure 05/16/2022 11:11 EST documented as of this encounter Functional Status [...] documented in this encounter Progress Notes * Jeannette Mccann RN - 05/17/2022 0915 EST add cbc, test, HIV, and HBV Ab/Ag per Dr. Rain for HCV consult labs documented in this encounter Plan of Treatment Not on file documented as of this encounter Results * HEPATITIS B SURFACE ANTIGEN (07/08/2022 10:49 EST) Hep B Surface Ag Negative Negative 07/08/19 13:14 EST [facility] Comment: Expected values: Negative The results of this assay can be falsely lowered due to the consumption of Biotin. Blood VENOUS BLOOD / Unknown Venipuncture / Unknown 07/08/2022 10:49 EST 07/08/2022 11:46 EST Eliza Rain MD CHEMISTRY & BLOOD GAS ORDERABL ES Final Result Performing Organization Address [facility] Number [facility] [address] [place] [address] * HEPATITIS B SURFACE ANTIBODY (07/08/2022 10:49 EST) Hep B Surface Ab, Quantitative 0.0 See Note mIU/mL 07/08/2022 13:14 EST [facility] Comment: Clinical Interpretation of Immune Status: Patient is considered to be not immune to infection with HBV. The results of this assay can be falsely lowered due to the consumption of Biotin. Reference Range for Hep B Surface Ab, Quant: Positive: ?>= 12.00 mIU/mL Negative: ?< 5.00 mIU/mL Indeterminate: ??>= 5.00 mIU/mL and < 12.00 mIU/mL Blood VENOUS BLOOD / Unknown Venipuncture / Unknown 07/08/2022 10:49 EST 07/08/2022 11:46 EST us Eliza Rain MD CHEMISTRY & BLOOD GAS ORDERABL ES Final Result Performing Organization Address [facility] de Phone Number [facility] [address] [place] [address] * HIV 1/2 ANTIGEN AND ANTIBODY, 4TH GENERATION (07/08/2022 10:49 EST) Pathologist [facility] HIV 1 and 2 Antibody/p24 Antigen, 4th Generation Negative Negative 07/08/2022 12:57 [facility] Comment:If acute HIV-1 infec tion is suspected in a high risk patient, submit plasma specimen for HIV-1 RNA quantitation test. Blood VENOUS BLOOD / Unknown Venipuncture / Unknown 07/08/2022 10:49 EST 07/08/2022 11:46 EST Eliza Rain MD IMMUNOLOGY AND SEROLOGY ORDERA BLES Final Result Performing Organization Address [facility] Co de Phone Number [facility] [address] [place] [address] * QUANT BETA HCG, (07/08/2022 10:49 EST) [facility] Beta HCG Quant, <5 <5 mIU/mL 07/08/2022 13:14 [facility] Comment: NOTE: : Negative: Less than 5mIU/mL Indeterminant: Between 5 and 25 mIU/mL, recommend repeat testing in 48 hours Positive: Greater than 25 mIU/mL The results of this assay can be falsely lowered due to the consumption of Biotin. Blood VENOUS BLOOD / Unknown Venipuncture / Unknown 07/08/2022 10:49 EST 07/08/2022 11:46 EST Eliza Rain MD CHEMISTRY & BLOOD GAS ORDERABL ES Final Result Performing Organization Address [facility]/ZIP Co de Phone Number [facility] [address] [place] [address] * COMPLETE BLOOD COUNT (07/08/2022 10:49 EST) [facility] WBC 5.18 4.00 - 12.40 K/cmm 07/08/2022 11:51 [facility] RBC 4.71 3.86 - 5.04 M/cmm 07/08/2022 11:51 [facility] Hemoglobin 14.1 11.6 - 15.2 gm/dL 07/08/2022 11:51 [facility] HCT 42.0 34.9 - 44.4 % 07/08/2022 11:51 [facility] MCV 89 81 - 98 fl 07/08/2022 11:51 [facility] MCH 29.9 26.7 - 33.3 pg 07/08/2022 11:51 [facility] MCHC 33.6 32.1 - 35.9 gm/dL 07/08/2022 11:51 [facility] RDW-CV 12.1 <14.7 % 07/08/2022 11:51 [facility] RDW-SD 39.5 <50.4 fl 07/08/2022 11:51 [facility] PLT 266 141 - 377 K/cmm 07/08/2022 11:51 [facility] MPV 9.7 9.5 - 12.7 fl 07/08/2022 11:51 [facility] Blood VENOUS BLOOD / Unknown Venipuncture / Unknown 07/08/2022 10:49 EST 07/08/2022 11:48 EST us Eliza Rain MD HEMATOLOGY & PF4 ORDERABLES Fi nal Result [facility] [address] [place] [address] documented in this encounter Visit Diagnoses Diagnosis Chronic hepatitis C without hepatic coma (HCC-CMS)- Primary Chronic hepatitis C without mention of hepatic coma documented in this encounter Care Teams Sheetmetal Trades Worker Relationship Specialty Start Date End Date Martha Saavedra FNP [address] [place] [address],[address] [place] [address] PCP - General 02/01/17 09/15/22 documented as of this encounter
--- OUTSIDE RECORDS SUMMARY | 2024-07-06 18:48 | XMS_ITS | Encounter Summary ---
Author Organization [facility] Address [address] [place] [address] Care Team Providers Care Cut Off Sawyer Name Role Phone Martha Saavedra [facility] Primary Care Provi devon Reason for Visit * Reason Onset Date Comments Medication Management 07/19/2022 Encounter Details Date Type Department Care Team (Late st Contact Info) Description 07/19/2022 Telephone [facility] [address] [place] [address] Eliza Rain MD [address] [facility], [address] [place] [address] Medication Management Social History Tobacco Use Types Packs/Day Years [...] have money to get more. Sometimes true [place] Depression Scale Answer Date Recorded [place] Depression Scale Total 9 05/16/2022 The [...] Recorded In the last 10 days, have yo u been in contact with someone who was confirmed or suspected to have Coronavirus/COVID-19? No / Unsure 06/19/2022 11:31 EST documented as of this encounter Functional [...] encounter Miscellaneous Notes * Telephone Encounter - Jeannette Mccann RN - 07/20/2022 1508 EST Pt notified of her genotype and the rx for Mavyret. Advised she take with food. Pt aware this was sent to [facility] specialty pharmacy and they will be calling her to set up shipment and payment. Asked patient to call us when she starts the medication so we can figure out when her 4 week labs are due. Ptagreed with plan, no further questions. * Telephone Encounter - Bubba Moon - 07/20/2022 1100 EST Patient left message returning a call. * Telephone Encounter - Jeannette Mccann RN - 07/19/2022 1600 EST Called [facility] specialty pharmacy about status of [id number]. They will have someone start working on the PA. * Telephone Encounter - Bubba Moon - 07/19/2022 1319 EST Patient left message asking for a call back about medication and treatment. documented in this encounter Plan of Treatment Not on file documented as of this encounter Visit Diagnoses Not on filedocumented in this encounter Care Teams Cut Off Sawyer Relationship Specialty Start Date End Date Martha Saavedra FNP [address] [facility],[address] [place] [address] PCP - General 02/01/17 09/15/22 documented as of this encounter
--- OUTSIDE RECORDS SUMMARY | 2024-07-06 18:48 | XMS_ITS | Encounter Summary ---
Author Organization [facility] Address [address] [place] [address] Care Team Providers Care Global Manager Name Role Phone None, Provider Primary Care Provider Unavailabl e Encounter Details Date Type Department Care Team (Late st Contact Info) Description 09/26/2022 Specialty Pharmacy [facility] [address] [place] [address] [place], [place] [id number] Alicia Boyd RPH Social History Tobacco Use Types Packs/Day Years [...] have money to get more. Sometimes true [place] Depression Scale Answer Date Recorded [place] Depression Scale Total 9 05/16/2022 The thought [...] this encounter Progress Notes * Alicia Boyd, [facility] - 09/26/2022 0833 EDT [facility] ?? Medication Therapy Follow Up: ?? Karin Dixon is a 27 y.o. female being treated with Mavyret x8 weeks for Hepatitis C. ?? Treatment information: Prescriber:??Dr. Rain ([facility]) Regimen:??Mavyret x8 weeks Genotype:??3 Treatment:??Naive Cirrhosis:??N Fibrosis Stage:??Fib-4 score: 0.89 HBV Status:??Started vaccine series 07/11/22 Social Hx:??h/o substance use disorder?? Specialty Pharmacy:??[facility] ?? Start date:??07/29/2022?Est End Date: 10/01/22 Est SVR12 Lab: 12/24/22?Lab: [facility] Week Date SCr Hct/Hgb AST ALT HCV RNA Quant Pretreatment 07/08/2022 0.86 42.0/14.1 107 139 277,000 09/16/22 ??0.90 ?31 26?? Undetectable ?? 12 post-tx ? I completed a complete review of the patient's current medical record, including medications, allergies and immunizations. ?? There are pertinent drug-drug interactions at this time. ?? Adherence: Patient reports that she has about 4 days left of Mavyret. This means she likely missed ~7-8 days of medication during the course of treatment. ?? Assessment: HCV RNA undetectable and LFTs are WNL. ?? Education Provided: Reviewed lab work requirements ?? Follow-up planned: - Clinic appointment: per [facility] clinic - Phone call: In January to follow-up on SVR 12 labs - Laboratory monitoring: Est SVR12 Lab: 12/24/22?? Alicia Boyd, PharmD, BCACP (she/her) Glass Block Installer Pharmacist [facility] 09/27/2022 documented in this encounter Plan of Treatment Not on file documented as of this encounter Visit Diagnoses Not on filedocumented in this encounter Discontinued Medications Medication Sig Discontinue Reason Start Date End Da te glecaprevir-pibrentasvir (MAVYRET) 100-40 mg tabletIndications:Chroni c hepatitis C without hepatic coma (HCC-CMS) Take 3 Tablets by mouth daily. With food. Therapy completed 07/22/2022 09/27/2022 documented as of this encounter Care Teams Global Manager Relationship Specialty Start Date End Date None, Provider PCP - General 09/16/22 05/23/23 documented as of this encounter
--- OUTSIDE RECORDS SUMMARY | 2024-07-06 18:48 | XMS_ITS | Encounter Summary ---
Author Organization [facility] Address [address] [place] [address] Care Team Providers Care Night Worker Name Role Phone Martha Saavedra [facility] Primary Care Provi devon Reason for Visit * Reason Comments Contraception NV Deop Encounter Details Date Type Department Care Team (Late st Contact Info) Description 05/16/2022 11:00 EST Nurse Only [facility] OBGYN [address] [place], [place] [address] Nurse, [facility] Encounter for contraceptive management, unspecified type (Primary Dx) Social History Tobacco Use Types [...] have money to get more. Sometimes true [place] Depression Scale Answer Date Recorded [place] Depression Scale Total 9 05/16/2022 The thought [...] 11:11 EST documented as of this encounter Last Filed Vital Signs Vital Sign Reading Time Taken Comments Blood Pressure 110/62 05/16/2022 1132 EST Pulse - - Temperature - - Respiratory Rate - - Oxygen Saturation - - Inhaled Oxygen Concentration - - Weight 70.3 kg (155 lb) 05/16/2022 1132 EST Height 170.2 cm (5' 7) 05/16/2022 1132 EST Body Mass Index 24.28 05/16/2022 1132 EST documented in this encounter Functional Status [...] documented in this encounter Progress Notes * Shruthi Driscoll RN - 05/16/2022 1100 EST Spoke to for Depo order for this pt. stated pt will need to be seen by provider but is allowing for 2 doses of Depo, so that she has ample time to arrange and have appointment. * Teresita Lock RN - 05/16/2022 1100 EST Pt here today for nurse visit - depo injection. Order obtained for 2 doses from MD - documentation below. Last dose given 02/12/2022 - verified that today's dose is within appropriate timeframe per office protocol. Today's dose is patients 1st dose of current prescription - see MAR for administration details. Pt reports no concerns today. Overall happy with this method of control. Next depo injection due between 07/25/2022 and 08/22/2022 and needs to scheduled an appointment with a provider for subsequent dosing. Pt is aware when next depo is due and was advised to schedule appointment, card provided with appropriate time frame written. Pt denies further questions or concerns, verbalized understanding and is agreeable to POC. TERESITA LOCK RN 05/16/22 11:17 * Teresita Lock RN - 05/16/2022 1100 EST SUBJECTIVE: Here for nurse visit Depo injection. Now > 10 weeks post-. Date of Delivery: 02/11/2022 Sex of baby: male Name: Kavin Type of delivery: spontaneous vaginal delivery Laceration: none Review of Systems Bleeding: spotting Bowel function is normal. Bladder function is normal Patient is sexually active Contraception method is Depo-Provera injections. Family/social support is good How much sleep are you gettin hours Activity level/exercise? Has resumed normal activity per report Social supports? Good support reported depression screening: negative. EPDS =9, pt would like to discuss anxiety meds. Pt seen by provider - estrellita see OV notes from EV. TERESITA LOCK RN 05/16/22 12:40 documented in this encounter Plan of Treatment Not on file documented as of this encounter Visit Diagnoses Diagnosis Encounter for contraceptive management, unspecified type- Primary documented in this encounter Administered Medications Inactive Administered Medications - up to 3 most recent administrations Medication Order MAR Action Action Date Dose Rate Site medroxyPROGESTERone (DEPO-PROVERA) syringe 150 mg 150 mg, intramuscular, EVERY 3 MONTHS, 2 doses, First dose on Mon05/16/22 at 1130, Last dose on Mon08/15/22 at 1130, Routine Given 05/16/2022 11:21 EST 150 mg Left D eltoid documented in this encounter Discontinued Medications Medication Sig Discontinue Reason Start Date End Da te polyethylene glycol 3350 (MIRALAX) 17 gram packet Take 17 g by mouth 2 times daily as needed for Other (constipation). Therapy completed 02/13/2022 05/16/2022 documented as of this encounter Care Teams Night Worker Relationship Specialty Start Date End Date Martha Saavedra FNP [address] [facility] [place] [address] PCP - General 02/01/17 09/15/22 documented as of this encounter
--- OUTSIDE RECORDS SUMMARY | 2024-07-06 18:48 | XMS_ITS | Encounter Summary ---
Author Organization [facility] Address [address] [place] [address] Care Team Providers Care Zipper Setter Lockstitch Name Role Phone Martha Saavedra Noe Harjeet [facility] Primary Care Provi devon Encounter Details Date Type Department Care Team (Latest Contact Info) Description 02/23/2022 8:01 EDT - 02/23/2022 23:59 EDT Hospital Encounter [facility] [place] [facility] [place] [address] [place], [place] [address] Fastener Technologist, [facility] Op Discharge Disposition: Home or Self Care Social [...] Leif Antonio RN documented in this encounter Medications at Time of Discharge methadone (DOLOPHINE) 10 mg tablet Take 13.5 Tablets by mouth daily. acetaminophen (TYLENOL) 500 mg tablet Take 2 Tablets by mouth every 8 hours as needed for Pain. 60 Tablet 02/13/2022 4 ferrous gluconate (FERGON) 324 mg (38 mg iron) tablet Take 1 Tablet by mouth daily with breakfast for 90 days. 30 Tablet 2 12/10/2021 2 ibuprofen (MOTRIN) 800 mg tablet Take 1 Tablet by mouth every 8 hours as needed for Pain. 60 Tablet 02/13/2022 3 multivitamin vit-iron fumarate-FA (STUARTNATAL) 27 mg iron- 1 mg tablet tablet Take 1 Tablet by mouth daily for 90 days. 30 Tablet 2 12/09/2021 2 polyethylene glycol 3350 (MIRALAX) 17 gram packet Take 17 g by mouth 2 times daily as needed for Other (constipation). 02/13/2022 2 sertraline (ZOLOFT) 25 mg tablet Take 1 Tablet by mouth daily for 90 days. Take 1/2 tablet daily for 2 weeks, then increase 1 tab daily. 30 Tablet 2 01/06/2022 2 documented as of this encounter Discharge Disposition Disposition Code Departure Means Destination Home or Self Detention documented in this encounter Miscellaneous Notes * Note - Lela Marcelo RN - 02/23/2022 0955 EDT [facility] Initial Consult Consult Requested By: Patient Requested Reason for Consult: survey of , elevated bili Subjective: born at [facility] vaginally with face presentation resulting in significant bruising. required phototherapy and was discharged 3 days from [facility]. Mother with hep C and infant was monitored using ESC protocol. Mother has been doing a combination of at breast and pumping and bottle feeding especially when infant was sleepy. Parents here with following repeat bili test drawn at the lab. has been really well except he struggles to latch to the right side. He seems to prefer to turn his head to the right and latches easier to the right side. Mother pumps the right side and gives infant EBM a few times a day in the bottle. He is peeing and pooping with most feeds. Objective: Weight: 2900 g (6 lb 6.3 oz) Discharge Weight: Last Weight: 02/20/22: 2710 g, 5-15.6 Weight Today: 2828 g, 6-3.8 oz up 4.2 oz in 3 days Date of : Information for the patient's : Olya Ferrari [[id number]] 02/11/2021 Age Today: 12 days Name: Olya Ferrari Provider: [facility] [place] Father/Partner: Zeb Place of Delivery: [facility] Type of Delivery: Information for the patient's : Olya Ferrari [[id number]] Spontaneous Vaginal Delivery [1056] Gestational Age: 38w5d /Para: Medications/Separation from Baby: none Breast Changes during : yes History of Breast Surgery/biopsy: no Problems with /: face presentation Time of First : Fed her 6 year old for a week, unsupportive partner History of : Significant Maternal Medical History: none Maternal Medications: acetaminophen (TYLENOL) 500 mg tablet ferrous gluconate (FERGON) 324 mg (38 mg iron) tablet ibuprofen (MOTRIN) 800 mg tablet methadone (DOLOPHINE) 10 mg tablet multivitamin vit-iron fumarate-FA (STUARTNATAL) 27 mg iron- 1 mg tablet tablet polyethylene glycol 3350 (MIRALAX) 17 gram packet sertraline (ZOLOFT) 25 mg tablet No current facility-administered medications for this encounter. Observation: Father has another appointment to get to so visit is brief and mother makes appointment for Monday to work on latching on the right side. latches to left side easily with head turning to right. Reviewed turning infant belly to belly so infant can tilt head back and latch better. and mother more comfortable with this change. Mother looking for information about baby wearing. Information given about baby wearing group and kids trade and play. Post weight is not done as Parents dressed prior to feeding and need to leave. Reviewed benefits of at for baby and mother. Assessment: Good weight gain with at breast and EBM feeding. with preference to the left side likely dueto preference to turn head to right. Cold be improved with optimal positioning. Plan: Attempt with next feed on the right side with belly to belly or in the underarm hold on the right side. Use tips to bring infant on with wide open mouth and nipple aimed at roof of the mouth. Pump right side if infant does not latch well and drink. Continue to feed on demand at least every 3 hrs. Used paced methods when using a bottle. follow-up: MondayFeb 28 at 11:30 Time spent In Room: 35 mins face to face Out of room: 10 mins, chart review, note, communication with nurse and or doctor documented in this encounter Plan of Treatment Not on file documented as of this encounter Visit Diagnoses Not on filedocumented in this encounter Care Teams Zipper Setter Lockstitch Relationship Specialty Start Date End Date Martha Saavedra FNP [address] [facility],[address] [place] [address] PCP - General 02/01/17 09/15/22 documented as of this encounter
--- OUTSIDE RECORDS SUMMARY | 2024-07-06 18:48 | XMS_ITS | Encounter Summary ---
Author Organization [facility] Address [address] [place] [address] Care Team Providers Care Power Brake Rebuilder Name Role Phone None, Provider Primary Care Provider Unavailabl e Reason for Visit * Reason Comments Headache Emesis Chronic but more capo quently past few weeks Encounter Details Date Type Department Care Team (Late st Contact Info) Description 09/16/2022 15:26 EDT - 09/16/2022 16:35 EDT Emergency [facility] Emergency Department [address] [place], [place] [id number] Bonilla Talavera MD [address] [place] [address] Acute nonintractable headache, unspecified headache type (Primary Dx) Discharge Disposition: Home or Self [...] have money to get more. Sometimes true [place] Depression Scale Answer Date Recorded [place] Depression Scale Total 9 05/16/2022 The thought [...] 15:25 EDT documented as of this encounter Last Filed Vital Signs Vital Sign Reading Time Taken Comments Blood Pressure 132/85 09/16/2022 1600 EDT Pulse 92 09/16/2022 1522 EDT Temperature 36.7 ??C (98 ??F) 09/16/2022 1522 EDT Respiratory Rate 16 09/16/2022 1522 EDT Oxygen Saturation 95% 09/16/2022 1600 EDT Inhaled Oxygen Concentration - - Weight 71.7 kg (158 lb) 09/16/2022 1522 EDT Height 172.7 cm (5' 8) 09/16/2022 1522 EDT Body Mass Index 24.02 09/16/2022 1522 EDT documented in this encounter Functional Status [...] this encounter Discharge Instructions * Discharge Instructions* Bonilla Talavera MD - 09/16/2022 16:11 EDT [facility] Emergency Department Discharge Instructions Diagnosis: headache Instructions / expected course of illness: Hopefully symptoms improve over the next several days. I would recommend he stop taking Tylenol for at least the next week. You are likely taking too muchTylenol every day and this can damage your liver. You can try taking the sumatriptan that we have prescribed-you take this once as needed for headache. You can repeat a dose after 2 hours if you still have a headache but you should not take more than 2 pills/day. Follow up: I have messaged our care management team to see if they can help you find a primary careprovider. Return Precautions: If you have significant worsening of your symptoms especially significant worsening headache, fevers, or other symptoms that are particularly concerning to you please return to the emergency room forreevaluation. documented in this encounter Medications at Time of Discharge methadone (DOLOPHINE) 10 mg tablet Take 13.5 Tablets by mouth daily. acetaminophen (TYLENOL) 500 mg tablet Take 2 Tablets by mouth every 8 hours as needed for Pain. 60 Tablet 02/13/2022 2023 glecaprevir-pibre ntasvir (MAVYRET) 100-40 mg tabletIndications :Chronic hepatitis C without hepatic coma (HCC-CMS) Take 3 Tablets by mouth daily. With food. 84 Tablet 1 07/22/2022 09/27/2022 VITAMIN PLUS LOW IRON 27 mg iron- 1 mg tablet tablet Take 1 Tablet by mouth daily for 360 days. 90 Tablet 3 06/24/2022 2023 SUMAtriptan (IMITREX) 50 mg tablet Take 1 Tablet by mouth as needed for up to 7 days for Migraine. 15 Tablet 09/16/2022 09/23/2022 documented as of this encounter Ordered Prescriptions Prescription Sig Dispense Quantity Refills Last Filled Start Date End Date SUMAtriptan (IMITREX) 50 mg tablet Take 1 Tablet by mouth as needed for up to 7 days for Migraine. 15 Tablet 09/16/2022 09/23/2022 documented in this encounter Discharge Disposition Disposition Code Departure Means Destination Home or Self Long-Term documented in this encounter ED Notes * Bonilla Talavera MD - 09/16/2022 1528 EDT Emergency Department Visit Medical Decision Making Medical Decision Making Acute nonintractable headache, unspecified headache type: acute illness or injury Risk Prescription drug management. 27-year-old female presents for evaluation of headache. On evaluation here in the emergency department she is awake and alert, does not appear to be in any significant distress. There is no appreciable neurologic deficit. IV Reglan and Tylenol was ordered but patient refused IV. She says that she is only interested in having a prescription for managing her headache so that she is not in significant pain when she goes on vacation in [place]. She does report regular Tylenol usage and I was concerned about the possibility of accidental therapeutic Tylenol overuse and so Tylenol level was ordered but the patient declined IV. Have consideredthe possibility of dural sinus thrombosis given her state when headache began but there is no appreciable neurologic deficit at the time of my evaluation I do not think advanced imaging isnecessary at this time. I do think is reasonable for her to trial a short course of sumatriptan to see if this helps with her symptoms. She does not have a primary care provider and I have encouraged her to follow-up with one for long-term management of headaches/any abortive migraine medications moving forward Final diagnoses: Acute nonintractable headache, unspecified headache type Disposition: Discharged Chief complaint: headache and nausea HPI Karin Dixon is a 27 y.o. female with history of chronic hep C (due to follow- up with Dr. Byrne ofinfectious disease in 4 days to discuss treatment), opiate use disorder on methadone who presents to the ED for headache. She says that she has had escalating headache for the last month or 2. Starting to happen every day. She describes a frontal headache with pressure behind her eyes, some discomfort around the back ofher head at the base of her skull/upper neck. No reported fevers or chills. No vision changes. Believes she has a migraine. She was here to have lab work drawn for infectious disease follow-up. She states that she is going to [place] soon and would like to not have a headache when she goes on vacation. No fevers or chills. No trauma. Feels similar to previous headaches but is escalating in frequency. Patient's pertinent PMH, FH, SH were reviewed and edited as necessary. Nursing notes reviewed. A medical screening exam was performed. Physical Exam BP 132/85 Pulse 92 Temp 36.7 ??C (98 ??F) (Oral) Resp 16 Ht 172.7 cm (68) Wt 71.7 kg (158 lb) SpO2 95% BMI 24.02 kg/m?? Physical Exam Vitals and nursing note reviewed. Constitutional: General: She is not in acute distress. Appearance: She is well-developed. HENT: Head: Normocephalic and atraumatic. Neck: Trachea: No tracheal deviation. Cardiovascular: Rate and Rhythm: Normal rate. Pulmonary: Effort: Pulmonary effort is normal. No respiratory distress. Abdominal: General: There is no distension. Musculoskeletal: General: Normal range of motion. Cervical back: Normal range of motion. Skin: General: Skin is warm and dry. Findings: No rash. Neurological: Mental Status: She is alert and oriented to person, place, and time. Motor: No abnormal muscle tone. Comments: Awake and alert, talks in full sentences. Face is symmetric. Moves all 4 extremities. No slurred speech. Extraocular movements intact. Procedures Procedures * Braulio Wing RN - 09/16/2022 1523 EDT Patient has history of migraine headaches and usually is able to control them with OTC meds. Over the past few months she has had increased frequency and pain level with the headaches. She has not been able to establish with a PCP, states every one she has called is full. She has also had some nausea, vomiting and increased sensitivity to light. She has had no recent trauma or other illness. documented in this encounter Plan of Treatment Not on file documented as of this encounter Visit Diagnoses Diagnosis Acute nonintractable headache, unspecified headache type- Primary documented in this encounter Discontinued Medications Medication Sig Discontinue Reason Start Date End Da te ibuprofen (MOTRIN) 800 mg tablet Take 1 Tablet by mouth every 8 hours as needed for Pain. Alternate therapy 02/13/2022 09/16/2022 documented as of this encounter Active and Recently Administered Medications Times are shown in EDT. Scheduled Medication Order 09/14/2022 09/15/2022 09/16/2022 ketOROLAC (TORADOL) injection 15 mg 15 mg, intravenous, NOW X1, 1 dose, On Mon09/16/22 at 1615, Routine 1633 (Not Given - Pr ovider: Trinh Fitch RN - Reason: Patient/family refused) metoclopramide (REGLAN) injection 10 mg 10 mg, intravenous, Once (Time Specified), 1 dose, On Mon09/16/22 at 1615, Routine 1633 (Not Given - Pr ovider: Trinh Fitch RN - Reason: Patient/family refused) documented in this encounter Orders Medications Ordered That Ellis ht Not Have Been Administered Count Last Ordered Date First Ordered Date ketOROLAC (TORADOL) injection 15 mg 1 09/16 metoclopramide (REGLAN) injection 10 mg 1 0 09/16/2022 documented in this encounter Care Teams Power Brake Rebuilder Relationship Specialty Start Date End Date None, Provider PCP - General 09/16/22 05/23/23 documented as of this encounter
--- OUTSIDE RECORDS SUMMARY | 2024-07-06 18:48 | XMS_ITS | Encounter Summary ---
Author Organization [facility] Address [address] [place] [address] Care Team Providers Care Supply Specialist Name Role Phone Martha Saavedra [facility] Primary Care Provi devon Reason for Visit * Reason Onset Date Comments Medication Management 07/13/2022 Encounter Details Date Type Department Care Team (Late st Contact Info) Description 07/13/2022 Telephone [facility] Infectious Disease [address] [facility], [place] [address] Jeannette Mccann, RN [address] [place], [place] [id number] Medication Management Social History Tobacco Use Types [...] have money to get more. Sometimes true [place] Depression Scale Answer Date Recorded [place] Depression Scale Total 9 05/16/2022 The thought [...] Telephone Encounter - Jeannette Mccann RN - 07/13/2022 1116 EST [facility] pharmacy referral updated with medication info. * Telephone Encounter - Jeannette Mccann RN - 07/13/2022 1116 EST ----- Message from Eliza Rain MD sent at 07/13/2022 11:02 EST ----- FIB-4 score: 0.89 Let's do Mavyret x 8 weeks (take with food) ----- Message ----- From: Jeannette Mccann RN Sent: 07/13/2022 10:50 EST To: Eliza Rain MD Genotype is back documented in this encounter Plan of Treatment Not on file documented as of this encounter Visit Diagnoses Not on filedocumented in this encounter Care Teams Supply Specialist Relationship Specialty Start Date End Date Martha Saavedra FNP [address] [facility] [place] [address] PCP - General 02/01/17 09/15/22 documented as of this encounter
--- OUTSIDE RECORDS SUMMARY | 2024-07-06 18:48 | XMS_ITS | Encounter Summary ---
Author Organization [facility] Address [address] [place] [address] Care Team Providers Care Store Administrator Name Role Phone Martha Saavedra Noe Cosby [facility] Primary Care Provi devon Encounter Details Date Type Department Care Team (Latest Contact Info) Description 02/13/2022 14:35 EDT - 02/15/2022 17:25 EDT Hospital Encounter [facility] [address], [place] [id number] Unknown, Provider, MD Discharge Disposition: Home or Self Care Social [...] Means Destination Comment s Home or Self Residential remove mom from courtesy bed. baby d/c'd today. documented in this encounter Progress Notes * Johanny Can MSW - 02/15/2022 1186 EDT Women???s and Children???s Initial Case Management/Social Work Assessment REASON FOR ADMISSION: No chief complaint on file. Patient/family understands reason for admission: Yes Parent/Guardian CONTACT INFO VERIFIED: Yes PATIENT ADDRESS VERIFIED: Yes Living Arrangement: Patient and FOB recently moved to an apartment in [place], [place]. Patient confirmed that she will be living with FOB, there are no other children in the home. Social Determinants of Health(SDOH): SDOH Screening Previous concern for food insecurity- I provided patient with some grocery cards. Patient has signed up for WIC and receives [employer]. Transportation or Financial needs (Gas, [place], Parking Lodging): Provided patient with grocery cards. Car seat at Hospital: Yes CULTURAL, MORMON and/or LANGUAGE factors affecting health care/discharge planning: Language/Literacy needs: N/A Spiritual/Cultural Requests: None requested Insurance Coverage: Medical Insurance: Yes Type of insurance: Medicaid [place]- mom confirmed that baby has been added to insurance. Referred to patient financial services: No COMMUNITY RESOURCES/SUPPORTS: Primary Care Provider: Martha Saavedra PCP Verified: Yes Babies Electronic Imager- Dr. Mcguire Social Supports: Family and friends. Patient and I completed the plan of safe care and patient identified her grandparents and FOB's mom as a support. Specialists: None DME at home and vendor: N/A Pharmacy: [id number] - [place], [place] - [address] [facility] [address] [facility] [address] [place] [address] [facility] - [place], [place] - [address] [address] [facility] [id number] Home Health: I asked patient if she would like a referral and explained what they can provide for support- she declined a referral but knows she can follow up with her PCP or counter tacker if she changes her mind. School/Daycare: Patient will be home with the baby, no daycare is set up at this time. Community Resources: [place], [employer], [facility] housing support, [facility] family services, working on setting up counseling, R[facility] for weekly methadone. Patient discussed that [facility] family services previously worked with her and a report was made when she had the baby. DCF SW Miriam Lofton ([place] office) met with mom this past Monday. Patient reported that Miriam was going to complete a home visit before patient discharges home. Patient gave me permission to contact Miriam. I called Miriam and she left me a vm back confirming that patient and baby can discharge home, [facility] will continue to meet with this family in the community. Family???s identified goals and needs: I introduced myself as SW and explained my role. Patient engaged in conversation and we completed the Plan of Safe Care together- I will fax this to baby's counter tacker. Patient was attentive to baby when I was present, I did not have any concerns. POST HOSPITAL TRANSITION PLAN: I met with the family. I let them know about the resources availableincluding parking passes and assessed for needs. Case management will continue to follow patient until discharge. Please call CM with any questions or concerns. BRANNON Hinds [phone] Pager: #[phone] * Johanny Can MSW - 02/15/2022 1209 EDT CM SW update: Met with Karin and completed the plan of safe care. Karin shared that DCF has an open case and she met with Ebenezer Boyer this past Monday. Karin gave me permission to contactChelsea. HOLDER to Miriam to confirm that Desarea and baby can discharge home- left a vm. GLORY back fromMiriam, she left me a message back confirming that Desarea and baby can discharge home. [facility] will continue to support this family in the community. BRANNON Hinds [phone] Pager: #[phone] documented in this encounter Miscellaneous Notes * Note - Nasrin Oliver RN - 02/15/2022 1211 EDT Images from the original note were not included. [facility] Consult Progress Note Consult Requested By: Order Reason for Consult: Difficult latch/non-sustained latch and Maternal substance use/baby on BRAYAN Subjective: Things are going well! Hoping to go home today. I could use some more small bottles Objective: Date of : 02/11/2022 Time of Delivery: 211 Type of Delivery: Spontaneous Vaginal Delivery [1056] Weight: 2900 g (6 lb 6.3 oz) Gestational Age: 38 5/7 : 8 @ 1 minute 9 @ 5 minutes GBS and Sepsis Risk Score: Lab Results Component Value Date GBSPCR Negative 01/20/2022 EOS score: not recorded Anesthesia: Labor analgesia: None Delivery anesthesia: None Adjunctive analgesia: None Anesthetic complications: None Additional comments: History/ Complications: 26 y.o. 38 5/7 Complications: Opioid use disorder (stable on methadone) Active Hep C with viral load of 74,000 as of November 2021 Brow presentation Uncomplicated vaginal delivery EBL 250cc Maternal Lab: Lab Results Component Value Date HCT 35.3 02/11/2022 Lab: Lab Results Component Value Date TCB 8.8 02/12/2022 No results found for: TBIL No results found for: CRP History: Has 6 year old at home. Unable to breastfeed. Was 20 yo and states I didn't know what I was doing,and I was depressed. Social History: Lives with Zeb in [place], [place] ([facility] This baby is [place] Medical History: Maternal Medical History: psychiatric: anxiety, depression, IPV (not currently) and Hepatitis C with positive viral load Current Maternal Medications: No current facility-administered medications for this encounter. Maternal Anatomy: no abnormalities noted 02/15: not examined Pertinent History: brow presentation ESC x 96 hours Current Infant Medications: Information for the patient's : Willem Dixon [[id number]] Breast Milk Identification, oral, PRN lidocaine (PF) 10 mg/mL (1 %) injection 1 mL, subcutaneous, PRN sucrose 24% (TOOTSWEET) solution 0.3 mL, oral, PRN Infant Anatomy: trauma and facial bruising Infants Current Weight: Information for the patient's : Willem Dixon [[id number]] 2735 g (6 lb 0.5 oz) Change from Weight: Information for the patient's : Willem Dixon [[id number]] -6% Weight Trends: Gained 0.2 oz from yesterday Recent Weights (last 72 hours) 02/12 2353 02/13 2340 02/15 0045 Weight 2720 g (5 lb 15.9 oz) 2730 g (6 lb 0.3 oz) 2735 g (6 lb 0.5 oz) Change Since (%) -6.21 % -5.86 % -5.69 % Growth Percentile* 7 % 7 % 5 % *Growth percentiles are based on WHO (Boys, 0-2 years) data 24 hour I/O: BF: 6x + 131 ml EBM by bottle Void: 5 voids Stool: 4 stools Information for the patient's : Willem Dixon [[id number]] Output for the past 24 hrs: Urine Occurrence Urine Description Stool Occurrence Stool Description Emesis Occurrence 02/15/22 0735 1 Small -- -- -- 02/15/22 0652 1 Medium 1 Transitional green;Medium -- 02/15/22 0117 1 Large;Other (Comment) 1 Smear -- 02/14/222005 1 Large;Other (Comment) -- -- -- 02/14/22 1927 0 -- 0 -- 0 09/05/22 1900 -- -- 1 Meconium;Large -- 02/14/22 1515 -- -- 1 Transitional green;Small -- Observation: 02/15: Andreina Cedillo RN IBCLC: Introduced self/role Mom had just sent baby to N, and was going to take a nap. She says she is very engorged. We talked about either feeding from breast or pumping breast 10 times in 24 hours. She had been pumping several times a day. Breasts are very firm and uncomfortable. We talked about using moist heat before a feed, and ice after a feed. I also told her its a good idea to keep taking her tylenol and motrin as it helps with inflammation. Says her nipples feel better today. Reviewed resources in her area 02/16: Nasrin Oliver MSN DOCTOR OF NATUROPATHIC MEDICINE WOOD MACHINE CARVER IBCLC Introduced self/role Was holding swaddled/sleeping baby Reviewed how feeding has been going - going well, no concerns Happy to be going home today Reviewed needs for home - extra supplies given No concerns Patient Education:Prevention/treatment of engorgement, Community resources for and Typical pattern of night and cluster feeding Also, discussed: safe sleep and differences in available breast pumps Assessment: Feeding efficiency: latch not witnessed Weight loss/gain: within expectations - 6% loss on day 4 - gained 0.2 oz since yesterday Oral assessment: not assessed - baby was asleep Additional concerns: none Mother Maternal milk supply: appropriate - reports comfortable Maternal anatomy: not assessed Maternal comfort: improved Maternal knowledge: knowledgeable about some things like frequency of feeding baby, but needs reinforcement about concepts of supply and demand Additional maternal concerns: none Plan: STS as much as possible. Offer breast with cues, at least 8-12 times per 24 hours Watch for light sleep state cues if needed, to avoid longer than 3 hours without feeding Try to observe latch at least once per shift - help with this PRN Use breast compressions to keep baby swallowing PRN Will dispense Spectra S2 per mom's request Highly recommend IBCLC visit with [facility] for Handouts given: Guide to feeding , Feeding log for the first week, Community resources, QR codes for web sites: Riya and How to use Spectra pump Pump Equipment: Double electric: Spectra and dispensed today and has old Medela from friend - states it's old - recommended to not use that pump as it's likely not the closed system kind and therefore not cleanable Time spent: In Room: 20 face to face; latch not observed Out of room: 15 discuss with nurse, chart review, documentation, pump dispensing Inpatient LC to see next: daily while inpatient Outpatient Follow Up: recommended to see [facility] for . Also given information on other in home LCs that go to [place]: Karissa Henderson IBCLC and Andreina Cedillo IBCLC. NASRIN OLIVER MSN DOCTOR OF NATUROPATHIC MEDICINE RN IBCLC 02/15/2022 12:11 * Note - Andreina Cedillo RN - 02/14/2022 1628 EDT Images from the original note were not included. [facility] Consult Progress Note Consult Requested By: Order Reason for Consult: Difficult latch/non-sustained latch and Maternal substance use/baby on BRAYAN Subjective: I am doing both, latching and pumping and bottle feeding. Objective: Date of : 02/11/2022 Time of Delivery: 211 Type of Delivery: Spontaneous Vaginal Delivery [1056] Weight: 2900 g (6 lb 6.3 oz) Gestational Age: 38 5/7 : 8 @ 1 minute 9 @ 5 minutes GBS and Sepsis Risk Score: Lab Results Component Value Date GBSPCR Negative 01/20/2022 EOS score: not recorded Anesthesia: Labor analgesia: None Delivery anesthesia: None Adjunctive analgesia: None Anesthetic complications: None Additional comments: History/ Complications: 26 y.o. 38 5/7 Complications: Opioid use disorder (stable on methadone) Active Hep C with viral load of 74,000 as of November 2021 Brow presentation Uncomplicated vaginal delivery EBL 250cc Maternal Lab: Lab Results Component Value Date HCT 35.3 02/11/2022 Lab: Lab Results Component Value Date TCB 8.8 02/12/2022 No results found for: TBIL No results found for: CRP History: Has 6 year old at home. Unable to breastfeed. Was 20 yo and states I didn't know what I was doing,and I was depressed. Social History: Lives with Zeb in [place], [place] ([facility] This baby is Olya Medical History: Maternal Medical History: psychiatric: anxiety, depression, IPV (not currently) and Hepatitis C with positive viral load Current Maternal Medications: No current facility-administered medications for this encounter. Maternal Anatomy: no abnormalities noted Pertinent Infant History: brow presentation of mother with OUD Current Infant Medications: Information for the patient's : Willem Dixon [[id number]] Breast Milk Identification, oral, PRN lidocaine (PF) 10 mg/mL (1 %) injection 1 mL, subcutaneous, PRN sucrose 24% (TOOTSWEET) solution 0.3 mL, oral, PRN Anatomy: trauma and facial bruising Infants Current Weight: Information for the patient's : Willem Dixon [[id number]] 2730 g (6 lb 0.3 oz) Change from Weight: Information for the patient's : Willem Dixon [[id number]] -6% Weight Trends Weight: 2900 g (6 lb 6.3 oz) Recent Weights (last 72 hours) 02/11 0629 02/12 0129 02/12 2353 Weight 2920 g (6 lb 7 oz) 2840 g (6 lb 4.2 oz) 2720 g (5 lb 15.9 oz) Change Since (%) 0.69 % -2.07 % -6.21 % Growth Percentile* 18 % 12 % 7 % *Growth percentiles are based on WHO (Boys, 0-2 years) data 24 hour I/O: BF: 3 times Void: 5 voids Stool:2 146 ml of EBM by bottle Information for the patient's : Willem Dixon [[id number]] Output for the past 24 hrs: Urine Occurrence Urine Description Stool Occurrence Stool Description Emesis Occurrence Emesis Appearance Emesis Amount (script) 02/14/22 1515 -- -- 1 Transitional green;Small -- -- -- 02/14/22 1200 1 Medium -- -- -- -- -- 02/14/22 1132 -- -- -- -- 1 Undigested food Medium 02/14/22 0740 1 Large -- -- -- -- -- 02/14/22 0315 1 Small -- -- -- -- -- 02/14/22 0022 -- -- 1 Transitional green;Medium -- -- -- 02/13/222019 1 Small -- -- -- -- -- Observation: Introduced self/role Mom had just sent baby to N, and was going to take a nap. She says she is very engorged. We talked about either feeding from breast or pumping breast 10 times in 24 hours. She had been pumping several times a day. Breasts are very firm and uncomfortable. We talked about using moist heat before a feed, and ice after a feed. I also told her its a good idea to keep taking her tylenol and motrin as it helps with inflammation. Says her nipples feel better today. Reviewed resources in her area Patient Education:Prevention/treatment of engorgement, Community resources for and Typical pattern of night and cluster feeding Also, discussed: safe sleep and differences in available breast pumps Assessment: Feeding efficiency: latch not witnessed Weight loss/gain: within expectations - 6% loss on day 2 Oral assessment: not assessed Additional concerns: none Mother Maternal milk supply: not assessed - mom endorses sore full breasts today. Will plan to pump Maternal anatomy: not assessed Maternal comfort: uncomfortable. Sore nipples and breasts Maternal knowledge: knowledgeable about some things like frequency of feeding baby, but needs reinforcement about concepts of supply and demand Additional maternal concerns: mom very sleepy Plan: STS as much as possible. Offer breast with cues, at least 8-12 times per 24 hours Watch for light sleep state cues if needed, to avoid longer than 3 hours without feeding Try to observe latch at least once per shift - help with this PRN Use breast compressions to keep baby swallowing PRN Will dispense Spectra S2 per mom's request Highly recommend IBCLC visit with [facility] for Handouts given: Guide to feeding , Feeding log for the first week, Community resources, QR codes for web sites: Riya and How to use Spectra pump Pump Equipment: Double electric: Spectra and dispensed today and has old Medela from friend - states it's old - recommended to not use that pump as it's likely not the closed system kind and therefore not cleanable Time spent: In Room: 35 face to face; latch not observed Out of room: 20 discuss with nurse, chart review, documentation, pump dispensing Inpatient LC to see next: daily while inpatient Outpatient Follow Up: recommended to see [facility] for . Also given information on other in home LCs that go to [place]: Karissa Henderson IBCLC and MELISA RushCLC. ANDREINA CEDILLO RN IBCLC MSN IBCLC 02/14/2022 16:28 documented in this encounter Plan of Treatment Not on file documented as of this encounter Visit Diagnoses Not on filedocumented in this encounter Care Teams Store Administrator Relationship Specialty Start Date End Date Martha Saavedra FNP [address] [facility] [place] [address] PCP - General 02/01/17 09/15/22 documented as of this encounter
--- OUTSIDE RECORDS SUMMARY | 2024-07-06 18:48 | XMS_ITS | Encounter Summary ---
Author Organization [facility] Address [address] [place] [address] Care Team Providers Care Rumper Name Role Phone None, Provider Primary Care Provider Unavailabl e Reason for Visit * Reason Comments Contraception Was on Depo, one mon th behind would like to try OCP. Having migraines, making her nauseous/vomit. Encounter Details Date Type Department Care Team (Latest Contact Info) Description 09/21/2022 14:00 EDT Office Visit [facility] OBGYN [address] [place] [address] Dona Casper NP CN [address] [facility], [address] [place] [address] Encounter for initial prescription of injectable contraceptive (Primary Dx); Encounter for other general counseling or advice on contraception; Chronic hepatitis C without hepatic coma (HCC-CMS); Substance use disorder Social History Tobacco Use Types Packs/Day Years [...] have money to get more. Sometimes true [place] Depression Scale Answer Date Recorded [place] Depression Scale Total 9 05/16/2022 The thought [...] Sign Reading Time Taken Comments Blood Pressure 128/72 09/21/2022 1427 EDT Pulse - - Temperature - - Respiratory Rate - - Oxygen Saturation - - Inhaled Oxygen Concentration - - Weight 71.7 kg (158 lb) 09/21/2022 1427 EDT Height 172.7 cm (5' 8) 09/21/2022 1427 EDT Body Mass Index 24.02 09/21/2022 1427 EDT documented in this encounter Functional Status * Are you deaf or do you have serious difficulty hearing? Answer Date of Assessment Author No 09/16/2022 15:21 EDT Nya Wing, ALLEN * Are you blind or do you [...] Refills Last Filled Start Date End Date escitalopram oxalate (LEXAPRO) 10 mg tablet Take 0.5 Tablets by mouth daily. 15 Tablet 1 09/21/2022 3 documented in this encounter Progress Notes * Dona Casper, WARP HAULER - 09/21/2022 1400 EDT Subjective: Chief Complaint Patient presents with ??? Contraception Was on Depo, one month behind would like to try OCP. Having migraines, making her nauseous/vomit. Subjective: Karin Dixon is a 27 y.o. female here for d/u of contraception. Continues on her tx for chronic Hep C. Hoping she is almost completed! Planning to travel to [place] to visit family Recent stress with her significant other incarcerarted Ongoing anxiety - remains on sertraline 25 mg. Didn't like how she felt with increase to 50 mg. Desires change to another med if possible. Remains on methadone - doing great with her recovery. Aware that the SSRI meds may have interactions with her Hep C medications and with the methadone Last EKG was done in No LMP recorded. Sexually active with same partner No sex in months No worried about possible Declines rpt GC/CL screening today - last done 08/2021 in No change in partner Last pap 12/2019 --> will be due this summer Current Outpatient Medications on File Prior to Visit Medication Sig Dispense Refill ??? acetaminophen (TYLENOL) 500 mg tablet Take 2 Tablets by mouth every 8 hours as needed for Pain.(Patient not taking: No sig reported) 60 Tablet 0 ??? glecaprevir-pibrentasvir (MAVYRET) 100-40 mg tablet Take 3 Tablets by mouth daily. With food. 84 Tablet 1 ??? methadone (DOLOPHINE) 10 mg tablet Take 135 mg by mouth daily. ??? VITAMIN PLUS LOW IRON 27 mg iron- 1 mg tablet tablet Take 1 Tablet by mouth daily for 360 days. (Patient not taking: Reported on 09/21/2022) 90 Tablet 3 ??? sertraline (ZOLOFT) 25 mg tablet Take 25 mg by mouth daily. ??? SUMAtriptan (IMITREX) 50 mg tablet Take 1 Tablet by mouth as needed for up to 7 days for Migraine. 15 Tablet 0 Current Facility-Administered Medications on File Prior to Visit Medication Dose Route Frequency Provider Last Rate Last Admin ??? medroxyPROGESTERone (DEPO-PROVERA) syringe 150 mg 150 mg intramuscular Q3 MONTHS Denice Quiles MD 150 mg at 05/16/22 1121 Allergies Allergen Reactions ??? Flagyl [Metronidazole] Nausea And Vomiting OB History Para Term AB Living 2 2 2 2 SAB IAB Ectopic Multiple Live Births 0 2 # Outcome Date GA Lbr Joseph/2nd Weight Sex Delivery Anes PTL Lv 2 Term 02/11/22 38w5d 2900 g (6 lb 6.3 oz) M GALILEO 1 Term 06/06/16 3260 g (7 lb 3 oz) Vag-Spont GALILEO Comments: Adopted out, open adoption Social History Occupational History ??? Occupation: [employer] Employer: [employer] Tobacco Use ??? Smoking status: Never ??? Smokeless tobacco: Never Vaping Use ??? Vaping Use: Never used Substance and Sexual Activity ??? Alcohol use: Not Currently Comment: sporadic in past ??? 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 Sexual activity: Yes Partners: Male control/protection: Injection Objective: There were no vitals taken for this visit. Appears well, no acute distress, bright affect Breathing unlabored Urine test negative today Assessment & Plan: 1. Encounter for other general counseling or advice on contraception 2. Chronic hepatitis C without hepatic coma (HCC-CMS) (HCC) 3. Routine screening for STI (sexually transmitted infection) Plan: Contraception options reviewed - will proceed with [...] RN. Plan rpt DMPA in 12 weeks Call/see sooner PRN Dona Casper CNM, HEALTH TEACHER Certified Nurse Economic Specialist & Family Nurse Practitioner * Teresita Lock, RN - 09/21/2022 1400 EDT Pt here today for OV - depo injection ordered by MADISON MASSEY. Today's dose is patients first dose of current prescription - see MAR for administration details. Next depo injection due between 11/30/2022 and 12/28/2022. Pt is aware when next depo is due and was advised to schedule appointment, card provided with appropriate time frame written. Pt denies further questions or concerns, verbalized understanding and is agreeable to plan. documented in this encounter Plan of Treatment Not on file documented as of this encounter Procedures Procedure Name Priority Date/Time Associated Diagnosis Comments POCT TEST, VISUAL READ Routine 09/21/2022 Encounter for other general counseling or advice on contraception documented in this encounter Results * POCT TEST, VISUAL READ (09/21/2022) Test, Urine, POC Negative Negative [facility] POINT OF CARE Control Line Present Yes [facility] POINT [facility] Background Clear? Yes [facility]INT [facility] Urine URINE / Unknown 09/21/2022 Dona Brettler Vandervort [employer] SUPERINTENDENT CNM POINT OF CARE T EST ORDERABLES Final Result [facility] POINT OF CARE documented in this encounter Visit Diagnoses Diagnosis Encounter for initial prescription of injectable contraceptive- Primary General counseling for initiation of other contraceptive measures Encounter for other general counseling or advice on contraception Chronic hepatitis C without hepatic coma (HCC-CMS) Chronic hepatitis C without mention of hepatic coma Substance use disorder documented in this encounter Administered Medications Inactive Administered Medications - up to 3 most recent administrations Medication Order MAR Action Action Date Dose Rate Site medroxyPROGESTERone (DEPO-PROVERA) syringe 150 mg 150 mg, intramuscular, EVERY 12 WEEKS, 5 doses, First dose on Mon09/21/22 at 1515, Last dose on Mon08/23/23 at 1515, Routine Given 09/21/2022 15:00 EDT 150 mg documented in this encounter Discontinued Medications Medication Sig Discontinue Reason Start Date End Da te sertraline (ZOLOFT) 25 mg tablet Take 25 mg by mouth daily. 09/21/2022 escitalopram oxalate (LEXAPRO) 10 mg tablet Take 0.5 Tablets by mouth daily. Alternate therapy 09/21/2022 09/21/2022 documented as of this encounter Historical Medications * This list may reflect changes made after this encounter. sertraline (ZOLOFT) 25 mg tablet Take 25 mg by mouth daily. 09/21/2022 added in this encounter Orders Medications Ordered That Ellis ht Not Have Been Administered Count Last Ordered Date First Ordered Date medroxyPROGESTERone (DEPO-ME OVERA) injection 150 mg 1 09/21/2022 documented in this encounter Care Teams Rumper Relationship Specialty Start Date End Date None, Provider PCP - General 09/16/22 05/23/23 documented as of this encounter
--- OUTSIDE RECORDS SUMMARY | 2024-07-06 18:48 | XMS_ITS | Encounter Summary ---
Author Organization [facility] Address [address] [place] [address] Care Team Providers Care Law Firm Partner Name Role Phone Quentin Martha Schroeders [facility] Primary Care Provi devon Reason for Visit * Reason Onset Date Comments Follow-up 05/17/2022 Encounter Details Date Type Department Care Team (Late st Contact Info) Description 05/17/2022 Telephone [facility] OBGYN [address] [place] [address] Tammy Foreman [address] [place] [address] [address] [place] [address] Follow-up Social History Tobacco Use Types Packs/Day Years [...] have money to get more. Sometimes true [place] Depression Scale Answer Date Recorded [place] Depression Scale Total 9 05/16/2022 The thought [...] * Telephone Encounter - Tammy Foreman - 05/17/2022 1152 EST Clinician call pt for f/u from pp medical appt 05/16/22 re pp anxiety; no ans, mail box full, no message left; clinician will work to connect w/pt at upcoming f/u pp medical appt. documented in this encounter Plan of Treatment Not on file documented as of this encounter Visit Diagnoses Not on filedocumented in this encounter Care Teams Law Firm Partner Relationship Specialty Start Date End Date Martha Saavedra FNP [address] [place] [address],[address] [place] [address] PCP - General 02/01/17 09/15/22 documented as of this encounter
--- OUTSIDE RECORDS SUMMARY | 2024-07-06 18:48 | XMS_ITS | Encounter Summary ---
Author Organization [facility] Address [address] [place] [address] Care Team Providers Care Engineer Third Assistant Name Role Phone Martha Saavedra Noe Harjeet [facility] Primary Care Provi devon Reason for Visit * Reason Onset Date Comments Post- Care 03/28/2022 2 week PP check in Encounter Details Date Type Department Care Team (Late st Contact Info) Description 03/28/2022 Telephone [facility] OBGYN Services - [facility] [address] [place] [address] Leida Dempsey, RN Post- Care (2 week PP check in ) Social History Tobacco Use Types Packs/Day [...] 02/11/2022 23:00 EDT Leif Altamirano RN * Are you blind or do [...] encounter Miscellaneous Notes * Telephone Encounter - Leida Dempsey RN - 04/01/2022 1136 EDT 3rd attempt to contact pt for 2 week PP check in. No answer from pt. Unable to LM. Letter sent to pt. * Telephone Encounter - Leida Dempsey RN - 03/31/2022 1030 EDT 2nd attempt to contact pt for 2 week PP check in. No answer from pt. Unable to LM as her VM box wasfull. * Telephone Encounter - Leida Dempsey RN - 03/28/2022 1515 EDT 1st attempt to contact pt for 2 week (now about 4 weeks PP) check in. No answer from pt. Unable to LM as her VM box was full. documented in this encounter Plan of Treatment Not on file documented as of this encounter Visit Diagnoses Not on filedocumented in this encounter Care Teams Engineer Third Assistant Relationship Specialty Start Date End Date Martha Saavedra FNP [address] [facility],[address] [place] [address] PCP - General 02/01/17 09/15/22 documented as of this encounter
--- OUTSIDE RECORDS SUMMARY | 2024-07-06 18:48 | XMS_ITS | Encounter Summary ---
Author Organization Health system Address [address] [place] [address] Care Team Providers Care Ota Name Role Phone None, Provider Primary Care Provider Unavailabl e Reason for Visit * Reason Comments Follow-up Things have been goi ng pretty good Encounter Details Date Type Department Care Team (Late st Contact Info) Description 09/22/2022 14:00 EDT Office Visit [facility] Infectious Disease [address] [place] [address] Eliza Rain MD [address] [facility], [address] [place] [address] Chronic hepatitis C without hepatic coma (HCC-CMS) (Primary Dx); 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 Sometimes true [place] Depression Scale Answer Date Recorded [place] Depression Scale Total 9 05/16/2022 The thought [...] Sign Reading Time Taken Comments Blood Pressure 122/78 09/22/2022 1349 EDT Pulse 98 09/22/2022 1349 EDT Temperature 36.5 ??C (97.7 ??F) 09/22/2022 1349 EDT Respiratory Rate - - Oxygen Saturation 97% 09/22/2022 1349 EDT Inhaled Oxygen Concentration - - Weight - - Height - - Body Mass Index - - documented in this encounter Functional Status * [...] documented in this encounter Progress Notes * Eliza Rain MD - 09/22/2022 1400 EDT INFECTIOUS DISEASE OUTPATIENT FOLLOW UP VISIT Patient name: Karin Dixon Today's date: 09/22/22 HPI: Karin Dixon is a 27 y.o. who is following up for management of HCV. I saw her for an initialconsult on 07/11/22 - see that note for full history. Briefly, she has a h/o substance abuse, now sober, depression, and recent - has had positive HCV tests since 11/10/20. On Depo for control. At that visit, we sera a genotype and then decided to do 8 weeks of Mavyret. She is here today for follow up. HCV History - Previously Treated - N INR if previously treated: N/A Genotype: 3 (07/08/22) VL: 277,000 (07/08/22) Fibrosis score: Fib-4 = 0.89 CBC: 07/08/22 CMP: 07/08/22 test if female (serum, within 60 days): negative (07/08/22) HIV: negative (07/08/22) HBV: SAb negative, SAg negative, CAb negative HAV: Total Ab not done Medication: 8 weeks Mavyret 4 week labs: due 08/26/22, done 09/16/22 (CMP fine, VL undetectable) 12 weeks post-treatment labs: due 12/16/22 Today, she says she's doing well. No side effects other than headaches. Taking them at night now, so the headaches are better. Has a history of migraines. Has 5 or 6 days of the Mavyret left. No abdominal pain or nausea. Her son is set up to have HCV testing when he's older with his automatic machine attendant. Always has a snack with the Mavyret. Physical Exam Vital Signs: BP 122/78 (BP Cuff Location: Right arm, BP Patient Position: Sitting, BP Cuff Sizes: Adult, regular) Pulse 98 Temp 36.5 ??C (97.7 ??F) (Temporal) SpO2 97% General: NAD Skin: no rash or obvious lesions HEENT: AT/NC. Normal dentition. Pulm: No cough or increased work of breathing Abd: non-distended Ext: Unremarkable Neuro: Non-focal Psych: Appropriate Medications: Mavyret as above Labs: Lab Results Component Value Date NA 145 09/16/2022 K 4.5 09/16/2022 CL 105 09/16/2022 CO2 29 09/16/2022 ANIONGAP 11 09/16/2022 BUN 12 09/16/2022 CREATININE 0.90 09/16/2022 CALCGFR 90 09/16/2022 GLU 76 11/10/2020 Lab Results Component Value Date Albumin 4.2 09/16/2022 ALT 26 09/16/2022 AST 31 09/16/2022 Alkaline Phosphatase 51 09/16/2022 Total Protein 6.8 09/16/2022 Bilirubin, Total 0.6 09/16/2022 HCV VL: 09/16/22 - undetectable Assessment and Plan: 27 y.o. female with h/o substance abuse now sober, depression, and recent who is nearing the end of her 8-week course of Mavyret for chronic HCV treatment. She has been tolerating the medication without issues other than headaches, which are chronic for her. 4-week labs done a bit late, but the VL was undetectable and CMP was fine. Advised to finish her course of Mavyret and we will give her a call when she is due for her 12-week post-treatment VL (12/16/22). Reminder set. It has been a pleasure seeing Daesukh Lopezjose enrique in clinic today. Eliza Rain MD, MPH [facility] Infectious Disease Office: [phone] I spent a total of 20 minutes on the date of this encounter meeting with the patient and reviewing documentation/coordinating care as described in the above note. No procedures were performed at the time of the visit. 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 sertraline (ZOLOFT) 25 mg tablet Take 25 mg by mouth daily. 2023 added in this encounter Care Teams Ota Relationship Specialty Start Date End Date None, Provider PCP - General 09/16/22 05/23/23 documented as of this encounter
--- OUTSIDE RECORDS SUMMARY | 2024-07-06 18:48 | XMS_ITS | Encounter Summary ---
Author Organization [facility] Address [address] [place] [address] Care Team Providers Care Manager Managing Name Role Phone Martha Saavedra [facility] Primary Care Provi devon Reason for Visit * Reason Onset Date Comments Follow-up 08/11/2022 Encounter Details Date Type Department Care Team (Late st Contact Info) Description 08/11/2022 Telephone [facility] Infectious Disease [address] [place] [address] Jeannette Mccann, RN [address] [place], [place] [id number] Follow-up (/) Social History Tobacco Use Types Packs/Day Years [...] have money to get more. Sometimes true [place] Depression Scale Answer Date Recorded [place] Depression Scale Total 9 05/16/2022 The thought [...] documented in this encounter Miscellaneous Notes * Addendum Note - aVndana Long RN - 08/18/2022 1212 ESTAddended by: VANDANA LONG on: 08/18/2022 12:12 Modules accepted: Orders * Telephone Encounter - Vandana Long RN - 08/18/2022 1209 EST Labs ordered. Left voice-mail for patient - labs ordered for next week or after for [facility] labs, callback with any questions. * Telephone Encounter - Bubba Moon - 08/18/2022 1143 EST Patient rescheduled 08/18/22 appt to 08/29/22. Reminded of 08/26 labs. Do these labs need ordered? * Telephone Encounter - Jeannette Mccann RN - 08/11/2022 1224 EST Patient confirmed start date of 07/29/22, 4 week labs due 08/26, 12 wk post treatment labs due 12/16. Specialty comments updated. Reminders set for labs. * Telephone Encounter - Jeannette Mccann RN - 08/11/2022 1123 EST Call patient to confirm start date of mavyret documented in this encounter Plan of Treatment Not on file documented as of this encounter Results * HCV RNA DETECT QUANT (09/16/2022 14:55 EDT) HCV RNA Qualitative Undetected Undetected 09/19/2022 11:02 EDT [facility] Blood VENOUS BLOOD / Unknown Venipuncture / Unknown 09/16/2022 14:55 EDT 09/16/2022 16:44 EDT Narrative [facility] - 09/19/2022 11:02 EDT The quantification range of this assay is 15 IU/mL to 100,000,000 IU/mL. Testing was performed using the [place] HCV test ([employer] with the [employer] 6800 System. us Eliza Rain MD CHEMISTRY & BLOOD GAS ORDERABL ES Final Result [facility] [address] [place] [address] * COMPREHENSIVE METABOLIC PANEL (CMP) (09/16/2022 14:55 EDT) Sodium 145 136 - 145 mmol/L 09/16/2022 17:23 [facility] Potassium 4.5 3.5 - 5.0 mmol/L 09/16/2022 17:23 [facility] Chloride 105 96 - 110 mmol/L 09/16/2022 17:23 [facility] CO2 Total 29 22 - 32 mmol/L 09/16/2022 17:23 [facility] Glucose 85 70 - 100 mg/dL 09/16/2022 17:23 [facility] BUN 12 10 - 26 mg/dL 09/16/2022 17:23 [facility] Creatinine 0.90 0.52 - 1.04 mg/dL 09/16/2022 17:23 [facility] eGFR 90 >60 mL/min/1.7 3m2 09/16/2022 17:23 [facility] Total Protein 6.8 6.3 - 8.2 g/dL 09/16/2022 17:23 [facility] Albumin 4.2 3.4 - 4.9 g/dL 09/16/2022 17:23 [facility] Alkaline Phosphatase 51 38 - 126 U/L 09/16/2022 17:23 [facility] AST 31 15 - 46 U/L 09/16/2022 17:23 [facility] ALT 26 <35 U/L 09/16/2022 17:23 [facility] Bilirubin, Total 0.6 <1.4 mg/dL 09/17/19 17:23 EDT [facility] Calcium 9.7 8.5 - 10.5 mg/dL 09/16/2022 17:23 EDT [facility] Albumin/Globulin Ratio 1.6 1.0 - 2.5 09/16/2022 17:23 EDT [facility] Anion Gap 11 5 - 14 09/16/2022 17:23 EDT [facility] Blood VENOUS BLOOD / Unknown Venipuncture / Unknown 09/16/2022 14:55 EDT 09/16/2022 16:44 EDT us Eliza Rain MD CHEMISTRY & BLOOD GAS ORDERABL ES Final Result [facility] [address] [place] [address] documented in this encounter Visit Diagnoses Diagnosis Chronic hepatitis C without hepatic coma (HCC-CMS)- Primary Chronic hepatitis C without mention of hepatic coma documented in this encounter Care Teams Manager Managing Relationship Specialty Start Date End Date Martha Saavedra FNP [address] [place] [address],[address] [place] [address] PCP - General 02/01/17 09/15/22 documented as of this encounter
--- OUTSIDE RECORDS SUMMARY | 2024-07-06 18:48 | XMS_ITS | Encounter Summary ---
Author Organization [facility] Address [address] [place] [address] Care Team Providers Care Certified Orthotist Name Role Phone QuentinMartha [facility] Primary Care Provi devon Reason for Referral * Consult (Routine/Next Available) - Authorized Specialty Diagnoses / Procedures Referred By Ferny dubose Referred To Contact Pharmacy Diagnoses Chronic hepatitis C without hepatic coma (HCC-CMS) Eliza Rain MD Phone: tel: fax: [facility] [address] [place] [address] Phone: tel: fax: Referral ID Status Reason Start Date Expiration Date Visits Requested Visits Authorized [id number] Authorized Specialty Services Required 07/11/2022 1 1 Question Answer PA Type: New Medication to be Prior Authorized: HCV treatment - awaiting genotype Comments The purpose of this request is to inform precertification staff that the requested service needs to be reviewed for prior-authorization. Reason for Visit * Reason Comments New Patient Visit * Consult (Routine/Next Available) - Order Cancelled Specialty Diagnoses / Procedures Referred By Ferny dubose Referred To Contact Infectious Disease Diagnoses Chronic hepatitis C without hepatic coma (HCC-CMS) Dona Casper NP [facility] Phone: tel: fax: Eliza Rain MD Phone: tel: fax: Referral ID Status Reason Start Date Expiration Date Visits Requested Visits Authorized [id number] Order Cancelled Specialty Services Required 05/16/2022 1 1 Encounter Details Date Type Department Care Team (Latest Contact Info) Description 07/11/2022 13:00 EST Initial consult [facility] Infectious Disease [address] [facility], [place] [address] Eliza Rain MD [address] [facility] [address] [place] [address] Chronic hepatitis C without hepatic coma (HCC-CMS) (Primary Dx); 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 Sometimes true [place] Depression Scale Answer Date Recorded [place] Depression Scale Total 9 05/16/2022 The thought [...] 11:31 EST documented as of this encounter Last Filed Vital Signs Vital Sign Reading Time Taken Comments Blood Pressure 100/70 07/11/2022 1306 EST Pulse 88 07/11/2022 1306 EST Temperature 36.6 ??C (97.8 ??F) 07/11/2022 1306 EST Respiratory Rate - - Oxygen Saturation - - Inhaled Oxygen Concentration - - Weight 74.8 kg (165 lb) 07/11/2022 1306 EST Height - - Body Mass Index 25.84 06/19/2022 1129 EST documented in this encounter Functional Status [...] Progress Notes * Eliza Rain MD - 07/11/2022 1300 EST Outpatient Infectious Disease Consult Note Patient name: Karin Dixon Today's date: 07/11/22 Consulting Provider: Dona Casper APRN Reason for Consult: Management of HCV infection HPI: Karin Dixon is a 27 y.o. F with history of substance abuse now sober, depression, and recentpregnancy (baby boy now 5 months old) who has been referred to ID to discuss treatment for her HCV infection. Upon review of records, she has had positive HCV VL tests since 11/10/20. HCV History - Previously Treated - N INR if previously treated: N/A Genotype: pending (07/08/22) VL: 277,000 (07/08/22) Fibrosis score: None done CBC: 07/08/22 CMP: 07/08/22 test if female (serum, within 60 days): negative (07/08/22) HIV: negative (07/08/22) HBV: SAb negative, SAg negative, CAb negative HAV: Total Ab not done Medication: TBD 4 week labs: 12 weeks post-treatment labs:. She says she's doing well - just wants to be done with the hepatitis C. Doing well with her son - he will be tested for HCV through his continuous pickling line pickler. No jaundice. No RUQ pain. No EtOH use or other drug use in the past 8 months. Here with her mother today. On Depo for control. Review of Systems: See HPI Past Medical History/Past Surgical History: Past Medical History: Diagnosis Date ??? Anemia ??? Depression ??? Hepatitis ??? Trauma Past Surgical History: Procedure Laterality Date ??? WISDOM TOOTH EXTRACTION Medications Current Outpatient Medications Medication ??? acetaminophen (TYLENOL) 500 mg tablet ??? ibuprofen (MOTRIN) 800 mg tablet ??? methadone (DOLOPHINE) 10 mg tablet ??? VITAMIN PLUS LOW IRON 27 mg iron- 1 mg tablet tablet ??? sertraline (ZOLOFT) 25 mg tablet Current Facility-Administered Medications Medication Route Frequency ??? medroxyPROGESTERone (DEPO-PROVERA) syringe 150 mg intramuscular Q3 MONTHS Allergies Allergies Allergen Reactions ??? Flagyl [Metronidazole] Nausea And Vomiting Social History: Social History Socioeconomic History ??? Marital status: Single Spouse name: Not on file ??? Number of children: Not on file ??? Years of education: Not on file ??? Highest education level: Not on file Occupational History ??? Occupation: [id number] Employer: [employer] Tobacco Use ??? Smoking status: Never ??? Smokeless tobacco: Never Vaping Use ??? Vaping Use: Never used Substance and Sexual Activity ??? Alcohol use: Not Currently Comment: sporadic in past ??? 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 Sexual activity: Yes Partners: Male control/protection: Injection Other Topics Concern ??? Not on file Social History Narrative ??? Not on file Social Determinants of Health Financial Resource Strain: Not on file Food Insecurity: Food Insecurity Present ??? Worried About Running Out of Food in the Last Year: Sometimes true ??? Ran Out of Food in the Last Year: Sometimes true Transportation Needs: Not on file Physical Activity: Not on file Stress: Not on file Social Connections: Not on file Housing Stability: Not on file Family History: The Family History was reviewed and is non-contributory for a past history of infection or immunocompromised state. Physical Exam Vital Signs: Pulse 88 Temp 36.6 ??C (97.8 ??F) (Temporal) Wt 74.8 kg (165 lb) BMI 25.84 kg/m?? General: NAD Skin: no rashes or lesions HEENT: AT/NC; sclera anicteric. Pulm: No cough, no increased work of breathing Abd: non-distended Ext: Unremarkable Neuro: Nonfocal Psych: Appropriate ID Pertinent Medications: Depo-Provera injections Methadone Sertraline Labs: See HPI Micro: None Radiology: None pertinent Assessment and Plan: 27 y.o. F with h/o substance abuse now sober, depression, and recent (baby boy now 5 months old) who has been referred to ID to discuss treatment for her HCV infection. We discussed usual course for treatment, side effects, and follow up. Discussed reducing the risk of transmission to hishousehold contacts. control for females of childbearing age: Depo Provera. Discussed the importance of continuing control while on HCV medications. Once we have her genotype back, we can decide on treatment. Will send referral to [facility] specialty pharmacy. It has been a pleasure seeing Karin Dixon in clinic today. Eliza Rain MD, MPH [facility] Infectious Disease Office: [phone] CC: referring provider, PCP I spent a total of 40 minutes on the date of this encounter meeting with the patient and reviewing documentation/coordinating care as described in the above note. No procedures were performed at the time of the visit. * Jeannette Rosas RN - 07/11/2022 1300 EST Karin Dixon has received the Heplisav-B immunization today. VIS given to patient and all questions were answered. The procedure was tolerated well. 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
--- OUTSIDE RECORDS SUMMARY | 2024-07-06 18:48 | XMS_ITS | Encounter Summary ---
Author Organization [facility] Address [address] [place] [address] Care Team Providers Care Sales Appointment Coordinator Name Role Phone Martha Saavedra [facility] Primary Care Provi devon Encounter Details Date Type Department Care Team (Late st Contact Info) Description 07/08/2022 10:35 EST Phlebotomy Only [facility] - Outpatient Phlebotomy Drawing [address] [place] [address] Lab, [facility] Chronic hepatitis C without hepatic coma (HCC-CMS) [...] have money to get more. Sometimes true [place] Depression Scale Answer Date Recorded [place] Depression Scale Total 9 05/16/2022 The thought [...] Priority Date/Time Associated Diagnosis Comments HCV RNA QUANT WITH REFLEX TO GENOTYPE Routine 07/08/2022 10:49 EST Chronic hepatitis C without hepatic coma (HCC-CMS) HCV GENOTYPE, SERUM Today 07/08/2022 1 0:49 EST Chronic hepatitis C without hepatic coma (HCC-CMS) HEPATITIS B SURFACE ANTIBODY Routine 07/08/2022 10:49 EST Chronic hepatitis C without hepatic coma (HCC-CMS) HEPATITIS B SURFACE ANTIGEN Routine 07/08/2022 10:49 EST Chronic hepatitis C without hepatic coma (HCC-CMS) COMPLETE BLOOD COUNT Routine 07/08/2022 10:49 EST Chronic hepatitis C without hepatic coma (HCC-CMS) HIV 1/2 ANTIGEN AND ANTIBODY, 4TH GENERATION Routine 07/08/2022 10:49 EST Chronic hepatitis C without hepatic coma (HCC-CMS) QUANT BETA HCG, Routine 07/08/2022 10:49 EST Chronic hepatitis C without hepatic coma (HCC-CMS) COMPREHENSIVE METABOLIC PANEL (CMP) Routine 07/08/2022 10:49 EST Chronic hepatitis C without hepatic coma (HCC-CMS) documented in this encounter Results * (ABNORMAL) HCV GENOTYPE, SERUM (07/08/2022 10:49 EST) HCV GENOTYPE 3(A) Undetected 07/12/2022 18:18 EST [facility] Comment: ADDITIONAL INFORMATION This test was performed using the [employer] RealTime HCV Genotype II assay ([employer] [place], [place]). Test Performed by: [facility] - [address] [address] Deck Hand: Edy Méndez M.D. Ph.D.; CLIA# [id number] Blood VENOUS BLOOD / Unknown Venipuncture / Unknown 07/08/2022 10:49 EST 07/11/2022 11:29 EST us Dona Luisa Casper PSYCHIATRIC NURSING ASSISTANT CNM CHEMISTRY & BLO OD GAS ORDERABLES Final Result Performing Organization Address City/[facility]/ZIP Co de Phone Number [facility] [address] [place] [address] * HEPATITIS B SURFACE ANTIGEN (07/08/2022 10:49 EST) Hep B Surface Ag Negative Negative 07/08/19 13:14 EST [facility] Comment: Expected values: Negative The results of this assay can be falsely lowered due to the consumption of Biotin. Blood VENOUS BLOOD / Unknown Venipuncture / Unknown 07/08/2022 10:49 EST 07/08/2022 11:46 EST Eliza Rain MD CHEMISTRY & BLOOD GAS ORDERABL ES Final Result Performing Organization Address [facility] de Phone Number [facility] [address] [place] [address] * HEPATITIS B SURFACE ANTIBODY (07/08/2022 10:49 EST) Hep B Surface Ab, Quantitative 0.0 See Note mIU/mL 07/08/2022 13:14 EST [facility] Comment: Clinical Interpretation of Immune [...] ORDERABL ES Final Result Performing Organization Address [facility]/ZIP Co de Phone Number [facility] [address] [place] [address] * HIV 1/2 ANTIGEN AND ANTIBODY, 4TH GENERATION (07/08/2022 10:49 EST) Pathologist [facility] HIV 1 and 2 Antibody/p24 Antigen, 4th Generation Negative Negative 07/08/2022 12:57 EST [facility] Comment:If acute HIV-1 infec tion is suspected in a high risk patient, submit plasma specimen for HIV-1 RNA quantitation test. Blood VENOUS BLOOD / Unknown Venipuncture / Unknown 07/08/2022 10:49 EST 07/08/2022 11:46 EST Eliza Rain MD IMMUNOLOGY AND SEROLOGY ORDERA BLES Final Result Performing Organization Address [facility] Co de Phone Number [facility] [address] [place] [id number] * QUANT BETA HCG, (07/08/2022 10:49 EST) [facility] Beta HCG Quant, <5 <5 mIU/mL 07/08/2022 13:14 [facility] Comment: NOTE: : Negative: Less than [...] ORDERABL ES Final Result Performing Organization Address [facility]/ZIP Co de Phone Number [facility] [address] [place] [id number] * COMPLETE BLOOD COUNT (07/08/2022 10:49 EST) [facility] WBC 5.18 4.00 - 12.40 K/cmm 07/08/2022 11:51 [facility] RBC 4.71 3.86 - 5.04 M/cmm 07/08/2022 11:51 [facility] Hemoglobin 14.1 11.6 - 15.2 gm/dL 07/08/2022 11:51 [facility] HCT 42.0 34.9 - 44.4 % 07/08/2022 11:51 [facility] MCV 89 81 - 98 fl 07/08/2022 11:51 [facility] MCH 29.9 26.7 - 33.3 pg 07/08/2022 11:51 [facility] MCHC 33.6 32.1 - 35.9 gm/dL 07/08/2022 11:51 [facility] RDW-CV 12.1 <14.7 % 07/08/2022 11:51 [facility] RDW-SD 39.5 <50.4 fl 07/08/2022 11:51 [facility] PLT 266 141 - 377 K/cmm 07/08/2022 11:51 [facility] MPV 9.7 9.5 - 12.7 fl 07/08/2022 11:51 [facility] Blood VENOUS BLOOD / Unknown Venipuncture / Unknown 07/08/2022 10:49 EST 07/08/2022 11:48 EST us Eliza Rain MD HEMATOLOGY & PF4 ORDERABLES Fi nal Result [facility] [address] [place] [address] * (ABNORMAL) HCV RNA QUANT WITH REFLEX TO GENOTYPE (07/08/2022 10:49 EST) HCV RNA Quantitative 277,000(H ) Undetected IU/mL 07/11/2022 11:29 EST [facility] HCV RNA Qualitative Detected( A) Undetected 07/11/2022 11:29 EST [facility] Blood VENOUS BLOOD / Unknown Venipuncture / Unknown 07/08/2022 10:49 EST 07/08/2022 11:46 EST Narrative [facility] - 07/11/2022 11:29 EST The quantification range of this assay is 15 IU/mL to 100,000,000 IU/mL. Testing was performed using the [employer] HCV test ([employer] with the cheyenne 6800 System. us Dona Casper PSYCHIATRIC NURSING ASSISTANT CNM CHEMISTRY & BLO OD GAS ORDERABLES Final Result [facility] [address] [place] [address] * (ABNORMAL) COMPREHENSIVE METABOLIC PANEL (CMP) (07/08/2022 10:49 EST) Sodium 143 136 - 145 mmol/L 07/08/2022 12:21 [facility] Potassium 4.0 3.5 - 5.0 mmol/L 07/08/2022 12:21 [facility] Chloride 107 96 - 110 mmol/L 07/08/2022 12:21 [facility] CO2 Total 22 22 - 32 mmol/L 07/08/2022 12:21 [facility] Glucose 81 70 - 100 mg/dL 07/08/2022 12:21 [facility] BUN 10 10 - 26 mg/dL 07/08/2022 12:21 [facility] Creatinine 0.86 0.52 - 1.04 mg/dL 07/08/2022 12:21 [facility] eGFR 95 >60 mL/min/1.7 3m2 07/08/2022 12:21 [facility] Total Protein 7.1 6.3 - 8.2 g/dL 07/08/2022 12:21 [facility] Albumin 4.1 3.4 - 4.9 g/dL 07/08/2022 12:21 [facility] Alkaline Phosphatase 48 38 - 126 U/L 07/08/2022 12:21 [facility] AST 107(H) 15 - 46 U/L 07/08/2022 12:21 [facility] ALT 139(H) <35 U/L 07/08/2022 12:21 [facility] Bilirubin, Total 0.2 <1.4 mg/dL 07/08/19 12:21 [facility] Calcium 8.7 8.5 - 10.5 mg/dL 07/08/2022 12:21 [facility] Albumin/Globulin Ratio 1.4 1.0 - 2.5 07/08/2022 12:21 [facility] Anion Gap 14 5 - 14 07/08/2022 12:21 [facility] Blood VENOUS BLOOD / Unknown Venipuncture / Unknown 07/08/2022 10:49 EST 07/08/2022 11:46 EST us Dona Luisa Casper PSYCHIATRIC NURSING ASSISTANT CNM CHEMISTRY & BLO OD GAS ORDERABLES Final Result [facility] [address] [place] [address] documented in this encounter Visit Diagnoses Diagnosis Chronic hepatitis C without hepatic coma (HCC-CMS) Chronic hepatitis C without mention of hepatic coma documented in this encounter Care Teams Sales Appointment Coordinator Relationship Specialty Start Date End Date Martha Saavedra FNP [address] [place] [address],[address] [place], [place] [address] PCP - General 02/01/17 09/15/22 documented as of this encounter
--- OUTSIDE RECORDS SUMMARY | 2024-07-06 18:48 | XMS_ITS | Encounter Summary ---
Author Organization [facility] Address [address] [place] [address] Care Team Providers Care Tire Bagger Name Role Phone Martha Saavedra Noe Harjeet [facility] Primary Care Provi devon Reason for Visit * Reason Onset Date Comments Medications Refill 04/21/2022 Encounter Details Date Type Department Care Team (Late st Contact Info) Description 04/21/2022 Refill [facility] OBGYN [address] [place], [place] [id number] Beverly Escalante MD [address] [facility], [address] [place] [address] Medications Refill Social History Tobacco Use Types [...] Refills Last Filled Start Date End Date VITAMIN PLUS LOW IRON 27 mg iron- 1 mg tablet tablet Take 1 Tablet by mouth daily for 90 days. 90 Tablet 04/21/2022 06/24/2022 documented in this encounter Miscellaneous Notes * Telephone Encounter - Misti Baxter RN - 04/21/2022 7957 EST Chart reviewed - pt n/s her PP visit with JF today; has PP visit now scheduled with on 04/26. Cori - ok to refill PNV? Pt is . Order pended. Thanks. * Telephone Encounter - Evon Benítez - 04/21/2022 1330 EST 27MG-1MG TABLETS Iron Tablets also Refill needed RICHARDSON she is out completely. documented in this encounter Plan of Treatment Not on file documented as of this encounter Visit Diagnoses Not on filedocumented in this encounter Discontinued Medications Medication Sig Discontinue Reason Start Date End Da te VITAMIN PLUS LOW IRON 27 mg iron- 1 mg tablet tablet Take 1 Tablet by mouth daily. Reorder 03/10/2022 04/21/2022 documented as of this encounter Historical Medications * This list may reflect changes made after this encounter. VITAMIN PLUS LOW IRON 27 mg iron- 1 mg tablet tablet Take 1 Tablet by mouth daily. 03/10/2022 04/21/2022 added in this encounter Care Teams Tire Bagger Relationship Specialty Start Date End Date Martha Saavedra FNP [address] [facility],[address] [place] [address] PCP - General 02/01/17 09/15/22 documented as of this encounter
--- OUTSIDE RECORDS SUMMARY | 2024-07-06 18:48 | XMS_ITS | Encounter Summary ---
Author Organization [facility] Address [address] [place] [address] Care Team Providers Care Vault Installer Name Role Phone Martha Saavedra Noe Harjeet [facility] Primary Care Provi devon Encounter Details Date Type Department Care Team (Latest Contact Info) Description 05/16/2022 Travel Social History Tobacco Use Types Packs/Day [...] have money to get more. Sometimes true [place] Depression Scale Answer Date Recorded [place] Depression Scale Total 9 05/16/2022 The thought [...] on filedocumented in this encounter Care Teams Vault Installer Relationship Specialty Start Date End Date Martha Saavedra FNP [address] [facility],[address] [place] [address] PCP - General 02/01/17 09/15/22 documented as of this encounter
--- OUTSIDE RECORDS SUMMARY | 2024-07-06 18:48 | XMS_ITS | Encounter Summary ---
Author Organization [facility] Address [address] [place] [address] Care Team Providers Care Platform Man Name Role Phone Martha Saavedra Noe Harjeet [facility] Primary Care Provi devon Encounter Details Date Type Department Care Team (Latest Contact Info) Description 06/19/2022 Travel Social History Tobacco Use Types Packs/Day [...] have money to get more. Sometimes true [place] Depression Scale Answer Date Recorded [place] Depression Scale Total 9 05/16/2022 The thought [...] on filedocumented in this encounter Care Teams Platform Man Relationship Specialty Start Date End Date Martha Saavedra FNP [address] [facility] [place] [address] PCP - General 02/01/17 09/15/22 documented as of this encounter
--- OUTSIDE RECORDS SUMMARY | 2024-07-06 18:48 | XMS_ITS | Encounter Summary ---
Author Organization [facility] Address [address] [place] [address] Care Team Providers Care Sand Operator Name Role Phone None, Provider Primary Care Provider Unavailabl e Encounter Details Date Type Department Care Team (Late st Contact Info) Description 09/16/2022 14:45 EDT Phlebotomy Only [facility] - Outpatient Phlebotomy Drawing [address] [place] [address] Lab, [facility] [place] Op Phlebotomy Chronic [...] have money to get more. Sometimes true [place] Depression Scale Answer Date Recorded [place] Depression Scale Total 9 05/16/2022 The thought [...] Diagnosis Comments HCV RNA DETECT QUANT Routine 09/16/2022 14:55 EDT Chronic hepatitis C without hepatic coma (HCC-CMS) COMPREHENSIVE METABOLIC PANEL (CMP) Routine 09/16/2022 14:55 EDT Chronic hepatitis C without hepatic coma (HCC-CMS) documented in this encounter Results * HCV RNA DETECT QUANT (09/16/2022 14:55 EDT) [facility] HCV RNA Qualitative Undetected Undetected 09/19/2022 11:02 EDT [facility] Blood VENOUS BLOOD / Unknown Venipuncture / Unknown 09/16/2022 14:55 EDT 09/16/2022 16:44 EDT Narrative [facility] - 09/19/2022 11:02 EDT The quantification range of this assay is 15 IU/mL to 100,000,000 IU/mL. Testing was performed using the [place] HCV test ([employer] with the cheyenne 6800 System. us Eliza Rain MD CHEMISTRY & BLOOD GAS ORDERABL ES Final Result [facility] [address] [place] [address] * COMPREHENSIVE METABOLIC PANEL (CMP) (09/16/2022 14:55 EDT) [facility] Sodium 145 136 - 145 mmol/L 09/16/2022 17:23 [facility] Potassium 4.5 3.5 - 5.0 mmol/L 09/16/2022 17:23 [facility] Chloride 105 96 - 110 mmol/L 09/16/2022 17:23 [facility] CO2 Total 29 22 - 32 mmol/L 09/16/2022 17:23 [facility] Glucose 85 70 - 100 mg/dL 09/16/2022 17:23 [facility] BUN 12 10 - 26 mg/dL 09/16/2022 17:23 [facility] Creatinine 0.90 0.52 - 1.04 mg/dL 09/16/2022 17:23 [facility] eGFR 90 >60 mL/min/1.7 3m2 09/16/2022 17:23 [facility] Total Protein 6.8 6.3 - 8.2 g/dL 09/16/2022 17:23 [facility] Albumin 4.2 3.4 - 4.9 g/dL 09/16/2022 17:23 [facility] Alkaline Phosphatase 51 38 - 126 U/L 09/16/2022 17:23 [facility] AST 31 15 - 46 U/L 09/16/2022 17:23 [facility] ALT 26 <35 U/L 09/16/2022 17:23 [facility] Bilirubin, Total 0.6 <1.4 mg/dL 09/17/19 17:23 [facility] Calcium 9.7 8.5 - 10.5 mg/dL 09/16/2022 17:23 [facility] Albumin/Globulin Ratio 1.6 1.0 - 2.5 09/16/2022 17:23 [facility] Anion Gap 11 5 - 14 09/16/2022 17:23 [facility] Blood VENOUS BLOOD / Unknown Venipuncture / Unknown 09/16/2022 14:55 EDT 09/16/2022 16:44 EDT us Eliza Rain MD CHEMISTRY & BLOOD GAS ORDERABL ES Final Result [facility] [address] [place] [address] documented in this encounter Visit Diagnoses Diagnosis Chronic hepatitis C without hepatic coma (HCC-CMS) Chronic hepatitis C without mention of hepatic coma documented in this encounter Care Teams Sand Operator Relationship Specialty Start Date End Date None, Provider PCP - General 09/16/22 05/23/23 documented as of this encounter
--- OUTSIDE RECORDS SUMMARY | 2024-07-06 18:48 | XMS_ITS | Encounter Summary ---
Author Organization [facility] Address [address] [place] [address] Care Team Providers Care Container Filler Name Role Phone None, Provider Primary Care Provider Unavailabl e Reason for Visit * Reason Onset Date Comments Coordination Of Care 10/21/2022 Encounter Details Date Type Department Care Team (Late st Contact Info) Description 10/21/2022 Telephone [facility] OBGYN [address] [place] [address] Dona Casper, HUYEN [facility] [address] [facility], [address] [place] [address] Coordination Of Care Social History Tobacco Use Types Packs/Day [...] have money to get more. Sometimes true [place] Depression Scale Answer Date Recorded [place] Depression Scale Total 9 05/16/2022 The thought of harming myself has occurred to me . Never 05/16/2022 Interpersonal Safety Answer Date Record ed Physically Hurt Never 01/13/2020 Verbally Threaten Not on file 01/13/2020 Comments No Sex and Gender Information Value Date Recorded Sex Assigned at Not on file Legal Sex Female 14:50 EDT Gender Identity Female 07/06/2021 12:52 EST Sexual Orientation Straight 02/11/2022 2 :46 EDT Occupation Industry Job Start Date Job [...] encounter Miscellaneous Notes * Telephone Encounter - Dona Casper APRN - 10/21/2022 6357 EDT TC with Karin. Now working with Michael SAHIKH and Trini Vogt with [facility]. Approaching her 1 yr recovery anniversary. Really feeling proud. Also now doing counseling with [facility]. Hasn't been successful getting new PCP - they are booking out 6 months at [facility] for C. MD Serg. Completed her treatment for chronic Hep C. Ongoing anxiety. Desires medication change from sertraline. Needs EKG given QT affect with methadone. Her MAT provider also recommends this. Requests that we cancel her appt next week and she move forward with the EKG. Then once results areback - we can move forward with change in med. I will call her with results and initiate the changeby phone - and we can plan office f/u about 3 weeks later. EKG ordered. She will call me when it is done and leave me a message - then I will call her about next steps with med adjustment! Dona Casper CNM, FLOOR INSTALLER Certified Nurse Billing Department Supervisor & Family Nurse Practitioner Notified Karin that can come to pt registration M to F from 8 to 230 for EKG. No appt needed. She will stop by our front load trash truck driver and let me know she has had it done. Then I will call her with nextsteps! documented in this encounter Plan of Treatment Not on file documented as of this encounter Visit Diagnoses Diagnosis Methadone maintenance therapy patient (HCC-CMS)- Primary Opioid type dependence, unspecified Substance use disorder Episodic mood disorder (HCC-CMS) Unspecified episodic mood disorder documented in this encounter Care Teams Container Filler Relationship Specialty Start Date End Date None, Provider PCP - General 09/16/22 05/23/23 documented as of this encounter
--- OUTSIDE RECORDS SUMMARY | 2024-07-06 18:48 | XMS_ITS | Encounter Summary ---
Author Organization [facility] Address [address] [place] [address] Care Team Providers Care Grain Combiner Name Role Phone Martha Saavedra [facility] Primary Care Provi devon None, Provider Primary Care Provider UnavailTrevon Gould MD Primary Care Provider Eliza Rain MD Unavailable [phone] Dona Casper [facility] Unavailable Reason for Visit * Reason Onset Date Comments Prior Auth, Medication 07/20/2022 Mayvret Encounter Details Date Type Department Care Team (Late st Contact Info) Description 07/20/2022 Telephone [facility] Infectious Disease [address] [place] [address] Eliza Rain MD [address] [facility], [address] [place] [address] Prior Auth, Medication (Octobervret ) Social History Tobacco Use Types Packs/Day [...] have money to get more. Sometimes true [place] Depression Scale Answer Date Recorded [place] Depression Scale Total 9 05/16/2022 The thought [...] Leif Altamirano RN documented in this encounter Ordered Prescriptions Prescription Sig Dispense Quantity Refills Last Filled Start Date End Date glecaprevir-pibren tasvir (MAVYRET) 100-40 mg tabletIndications: Chronic hepatitis C without hepatic coma (HCC-CMS) Take 3 Tablets by mouth daily. With food. 84 Tablet 1 07/22/2022 3 documented in this encounter Miscellaneous Notes * Telephone Encounter - Eliza Rain MD - 07/22/2022 0930 EST Signed. * Telephone Encounter - Lisbeth Luque - 07/20/2022 1107 EST Prior Authorization Approval Medication: Mavyret 100mg-40mg Insurance Name:[facility] Insurance Type: [place] Approval Dates: 07/20/2022-09/17/2022 Authorization Number: [id number] Benefits Information: [facility] able to fill? : yes Required Pharmacy: Additional Info/Other Notes: Prior Authorization Submission Process - Routine Medication: Mavyret 100mg-40mg Insurance: [facility] Insurance Type: [place] PA Request Received: 07/20/2022 PA Submission Date: 07/20/2022 [facility] Le: Notes: faxed PA form and chart notes to [facility] on 07/20/2022 @ [phone]. Submitted by: TOSHA Phone: [phone] documented in this encounter Plan of Treatment Not on file documented as of this encounter Visit Diagnoses Diagnosis Chronic hepatitis C without hepatic coma (HCC-CMS)- Primary Chronic hepatitis C without mention of hepatic coma documented in this encounter Care Teams Grain Combiner Relationship Specialty Start Date End Date Mratha Saavedra FNP [address] [place], [place] [address] [place] [address] PCP - General 02/01/17 09/15/22 None, Provider PCP - General 09/16/22 05/23/23 Trevon Boyd MD [address] [place] [phone] PCP - General Family Medicine - Primary Care 05/24/23 Eliza Rain MD [address] [place] [phone] Infectious Disease 05/24/23 Dona Casper, HUYEN MASSEY [address] [place] [address], [address] [place] [address] Commercial Sales Specialist Midwifery 05/24/23 documented as of this encounter
--- OUTSIDE RECORDS SUMMARY | 2024-07-06 18:48 | XMS_ITS | Encounter Summary ---
Author Organization [facility] Address [address] [place] [address] Care Team Providers Care Dog Beautician Name Role Phone Martha Saavedra REFINERY OPERATOR [employer] Primary Care Provi devon None, Provider Primary Care Provider Trevon Billingsley MD Primary Care Provider Eliza Rain MD Unavailable [phone] Dona Casper [facility] Unavailable Reason for Visit * Reason Onset Date Comments Appointment Related 04/19/2022 Encounter Details Date Type Department Care Team (Late st Contact Info) Description 04/19/2022 Telephone [facility] - [facility] [address] [place], [place] [id number] [place] [address] [place] [phone] Appointment Related Social History Tobacco Use Types [...] Answer Entry Date Author No 02/11/2022 23:00 Lefi Antonio RN documented in this encounter Miscellaneous Notes * Telephone Encounter - Kassidy Verdugo - 04/19/2022 1451 EST Spoke to patient she declined PPV at this location and is receiving else where documented in this encounter Plan of Treatment Not on file documented as of this encounter Visit Diagnoses Not on filedocumented in this encounter Care Teams Dog Beautician Relationship Specialty Start Date End Date Martha Saavedra FNP [address] [facility] [address] [place], [place] [address] PCP - General 02/01/17 09/15/22 None, Provider PCP - General 09/16/22 05/23/23 Trevon Boyd MD [address] [place] [address] [address] [place] [phone] PCP - General Family Medicine - Primary Care 05/24/23 Eliza Rain MD [address] [place] [address] [address] [place] [address] Infectious Disease 05/24/23 Dona Casper, HUYEN CNJose [address] [place] [address], [address] [place] [address] [employer] Midwifery 05/24/23 documented as of this encounter
--- OUTSIDE RECORDS SUMMARY | 2024-07-06 18:48 | XMS_ITS | Encounter Summary ---
Author Organization [facility] Address [address] [place] [address] Care Team Providers Care Artists' Model Name Role Phone Martha Saavedra Noe Harjeet [facility] Primary Care Provi devon Reason for Visit * Reason Comments Urinary Tract Infection Pt has had burni ng with urination for 2 weeks with frequency and urgency. Pt took cranberry pills with mild relief and while at [facility] took pyridium. Encounter Details Date Type Department Care Team (Late st Contact Info) Description 06/19/2022 11:32 EST - 06/19/2022 13:30 EST Emergency [facility] Emergency Department [address] [place] [address] [phone] Trevon Mccain PA-C [address] [place] [address] Urinary tract infection in female (Primary Dx) Discharge Disposition: Home or Self [...] have money to get more. Sometimes true [place] Depression Scale Answer Date Recorded [place] Depression Scale Total 9 05/16/2022 The thought [...] Sign Reading Time Taken Comments Blood Pressure 116/73 06/19/2022 1129 EST Pulse - - Temperature 37.1 ??C (98.8 ??F) 06/19/2022 1129 EST Respiratory Rate 16 06/19/2022 1129 EST Oxygen Saturation 97% 06/19/2022 1129 EST Inhaled Oxygen Concentration - - Weight 76 kg (167 lb 9.6 oz) 06/19/2022 1129 EST Height 170.2 cm (5' 7) 06/19/2022 1129 EST Body Mass Index 26.25 06/19/2022 1129 EST documented in this encounter [...] this encounter Discharge Instructions * Discharge Instructions* Trevon Mccain PA-C - 06/19/2022 13:11 EST You were seen today for urinary tract infection. We are treating you empirically with a round of cefpodoxime. If your urine culture comes back showing a resistance to this antibiotic we will call you to informyou of a need for change. Otherwise hydrate with plenty of fluids and get plenty of rest and be sure to follow-up with JONO Mello. * Attachments The following attachments cannot be sent through Care Everywhere. * UTI (Urinary Tract Infection): Female (Greek) documented in this encounter Medications at Time of Discharge methadone (DOLOPHINE) 10 mg tablet Take 13.5 Tablets by mouth daily. acetaminophen (TYLENOL) 500 mg tablet Take 2 Tablets by mouth every 8 hours as needed for Pain. 60 Tablet 02/13/2022 2023 cefpodoxime (VANTIN) 200 mg tablet Take 1 Tablet by mouth every 12 hours for 7 days. 14 Tablet 06/19/2022 06/26/2022 ibuprofen (MOTRIN) 800 mg tablet Take 1 Tablet by mouth every 8 hours as needed for Pain. 60 Tablet 02/13/2022 09/16/2022 VITAMIN PLUS LOW IRON 27 mg iron- 1 mg tablet tablet Take 1 Tablet by mouth daily for 360 days. 90 Tablet 3 06/24/2022 2023 VITAMIN PLUS LOW IRON 27 mg iron- 1 mg tablet tablet Take 1 Tablet by mouth daily for 90 days. 90 Tablet 04/21/2022 06/24/2022 sertraline (ZOLOFT) 25 mg tablet Take 1 Tablet by mouth daily for 30 days. 90 Tablet 1 06/30/2022 07/30/2022 sertraline (ZOLOFT) 25 mg tablet Take 1 Tablet by mouth daily for 30 days. 30 Tablet 06/24/2022 06/30/2022 documented as of this encounter Ordered Prescriptions Prescription Sig Dispense Quantity Refills Last Filled Start Date End Date cefpodoxime (VANTIN) 200 mg tablet Take 1 Tablet by mouth every 12 hours for 7 days. 14 Tablet 06/19/2022 06/26/2022 documented in this encounter Discharge Disposition Disposition Code Departure Means Destination Home or Self Group Home documented in this encounter ED Notes * Trevon Mccain PA-C - 06/19/2022 1245 EST Emergency Department Visit Medical Decision Making This is a 27-year-old female presenting to the emergency department for complaints of urinary symptoms ongoing for the past 2 weeks including frequency and urgency. Denies any systemic symptoms such as fevers, chills, nausea, vomiting. Denies any vaginal bleeding or vaginal discharge. Denies any pain in her back. On exam she is nontoxic-appearing and in no acute distress. She has no CVA tenderness and no significant abdominal tenderness to palpation. Urine specimen shows bacteria, nitrites, leuk esterase, blood. Given that she is well-appearing has normal vital signs and a normal exam I do not feel blood testsare necessary at this time nor imaging. Will treat patient with cefpodoxime based on her duration of symptoms. Encouraged her to follow-up closely with JONO Mello at her earliest convenience. She was given clear instructions to return to the emergency department should her symptoms worsen. Relevant Data as of 06/22/22 1435 Sun Jun 19, 2022 1301 RBC, UA(!): 3 - 10 [AH] 1301 WBC, UA(!): >50 [AH] 1301 Bacteria, UA(!): Many [AH] 1301 Nitrite, UA(!): Positive [AH] 1301 Leuk Esterase(!): 3+ [AH] 1301 Blood, UA(!): Trace [AH] 1301 Nitrite(!): Positive [AH] 1301 Leuk Esterase(!): 1+ [AH] 1301 Blood, UA(!): Trace [AH] 1301 Clarity, UA(!): Cloudy [AH] Relevant Data User Index [] Trevon Mccain PA-C Laboratory data was reviewed and independently interpreted. } I reviewed relevant external documentation, including clinic notes. The following social determinants of health were considered: None. Medical decision making included the following elements: prescription drug management. Final diagnoses: Urinary tract infection in female Disposition: Discharged Chief complaint: Dysuria HPI Karin Dixon is a 27 y.o. female who presents to the ED for burning with urination for the past 2 weeks including frequency and urgency. She states she has been taking cranberry pills with only little bit of relief as well as Pyridium. She states her symptoms persist and she continues to have dysuria. Denies any fevers, chills, night sweats. She denies any pain in her back. History was provided by: Patient Patient's pertinent PMH, FH, SH were reviewed and edited as necessary. Physical Exam BP 116/73 Temp 37.1 ??C (98.8 ??F) (Oral) Resp 16 Ht 170.2 cm (67) Wt 76 kg (167 lb 9.6 oz) SpO2 97% BMI 26.25 kg/m?? A medical screening exam was performed. Physical Exam Vitals and nursing note reviewed. Constitutional: General: She is not in acute distress. Appearance: Normal appearance. HENT: Head: Normocephalic and atraumatic. Right Ear: [...] mass. Tenderness: There is no abdominal tenderness. There is no right CVA tenderness or left CVA tenderness. Musculoskeletal: General: No swelling or deformity. [...] Procedure Name Priority Date/Time Associated Diagnosis Comments UA SEDIMENT (CULTURE IF POS) STAT 06/19/2022 12:44 EST UA WITH REFLEX SEDIMENT (CULTURE IF POS) STAT 06/19/2022 12:44 EST BACTERIAL CULTURE, URINE Today 06/19/2022 12:44 EST POCT TEST, VISUAL READ STAT 06/19/2022 12:27 EST POCT URINE DIPSTICK, VISUAL READ STAT 06/19/2022 12:26 EST documented in this encounter Results * (ABNORMAL) BACTERIAL CULTURE, URINE (06/19/2022 12:44 EST) Organism ID Greater than 100,000 CFU/ml Escherichia coli(A) VITEK SUSCEPTIBILITY 06/21/2022 7:50 EST [facility] Comment: Cefazolin susceptibility results can be used to predict susceptibility results for the following oral cephalosporins when used for therapy of uncomplicated UTI's due to E.coli, K.pneumoniae and P.mirabilis: cefaclor, cefdinir, cefpodoxime, cefprozil, cefuroxime, cephalexin and loracarbef. ??Please note that only cefdinir, cefpodoxime, cefuroxime and cephalexin are on the [facility] inpatient formulary. Urine URINE SPECIMEN COLLECTION, CLEAN CATCH / Unknown Urine Collect / Unknown 06/19/2022 12:44 EST 06/19/2022 12:59 EST Narrative Organism Antibiotic Method Susceptibility Escherichia coli Amoxicillin Clavulan ic acid VITEK SUSCEPTIBILITY 4 ug/mL: Susceptible Escherichia coli Ampicillin VITEK SUSCEPTIBILITY >=32 ug/mL: Resistant Escherichia coli Ampicillin Sulbactam VITEK SUSCEPTIBI LITY 16 ug/mL: Intermediate Escherichia coli Cefazolin VITEK SUSCEPTIBILITY <=4 ug/mL: Susceptible Escherichia coli Cefepime VITEK SUSCEPTIBILITY <=1 ug/mL: Susceptible Escherichia coli Ceftriaxone VITEK SUSCEPTIBILITY <=1 ug/mL: Susceptible Escherichia coli Ciprofloxacin VITEK SUSCEPTIBILITY <=0.25 ug/mL: Susceptible Escherichia coli Ertapenem VITEK SUSCEPTIBILITY <=0.5 ug/mL: Susceptible Escherichia coli Gentamicin VITEK SUSCEPTIBILITY >=16 ug/mL: Resistant Escherichia coli Levofloxacin VITEK SUSCEPTIBILITY <=0.12 ug/mL: Susceptible Escherichia coli Nitrofurantoin VITEK SUSCEPTIBILITY <=16 ug/mL: Susceptible Escherichia coli Piperacillin Tazobactam VITEK SUSCEPT IBILITY <=4 ug/mL: Susceptible Escherichia coli Tobramycin VITEK SUSCEPTIBILITY 8 ug/mL: Intermediate Escherichia coli Trimethoprim-Sulfame thox azole VITEK SUSCEPTIBILITY >=320 ug/mL: Resistant us Trevon Mccain PA-C MICROBIOLOGY - GENERAL ORDERABLE S Final Result [facility] [address] [place] [address] * (ABNORMAL) UA SEDIMENT (CULTURE IF POS) (06/19/2022 12:44 EST) Urine RBC Count, Manual 3 - 10(A) 0 - 2, None Seen Cells/HPF 06/19/2022 12:59 EST [facility] Urine WBC Count >50(A) 0 - 3, None Seen Cells/HPF 06/19/2022 12:59 EST [facility] Urine Squamous Count, Manual None Seen None Seen Cells/HPF 06/19/2022 12:59 EST [facility] Urine Bacteria Count, Manual Many(A) None Seen Bacteria/H PF 06/19/2022 12:59 EST [facility] Urine URINE SPECIMEN COLLECTION, CLEAN CATCH / Unknown Urine Collect / Unknown 06/19/2022 12:44 EST 06/19/2022 12:46 EST [facility] - 06/19/2022 12:59 EST Urine Sediment Analysis results are unreliable on urines that are unrefrigerated for >2 hrs or refrigerated >8 hrs. A Urine Culture test has been reflexively ordered based on result criteria from the Urine Sediment Analysis. us Trevon Mccain PA-C URINALYSIS ORDERABLES Final Resu lt [facility] [address] [place] [address] * (ABNORMAL) UA WITH REFLEX SEDIMENT (CULTURE IF POS) (06/19/2022 12:44 EST) Color UA Yellow Colorless to Dark Yellow 06/19/2022 12:52 [facility] Clarity UA Cloudy(A) Clear 06/19/2022 12:52 [facility] Glucose UA Negative Negative 06/19/2022 12:52 [facility] Bilirubin UA Negative Negative 06/19/2022 12:52 [facility] Ketones UA Negative Negative 06/19/2022 12:52 [facility] Specific [place], Urine 1.015 1.001 - 1.035 06/19/2022 12:52 [facility] Blood UA Trace(A) Negative 06/19/2022 12:52 [facility] pH, UA 7.0 4.6 - 8.0 06/19/2022 12:52 [facility] Protein UA Negative Negative 06/19/2022 12:52 [facility] Urobilinogen UA 0.2 0.2 , 1.0, Normal mg/dL 06/19/2022 12:52 [facility] Nitrite UA Positive(A) Negative 06/19/2022 12:52 [facility] Leukocyte Esterase UA 1+(A) Negative 06/19/2022 12:52 [facility] Urine URINE SPECIMEN COLLECTION, CLEAN CATCH / Unknown Urine Collect / Unknown 06/19/2022 12:44 EST 06/19/2022 12:46 EST Trevon Mccain PA-C URINALYSIS ORDERABLES Final Resu lt [facility] [address] [place] [address] * POCT TEST, VISUAL READ (06/19/2022 12:27 EST) Test, Urine, POC Negative Negative Control Line Present Yes Background Clear? Yes Urine URINE SPECIMEN COLLECTION, CLEAN CATCH / Unknown 06/19/2022 12:27 EST Trevon PEDRO-C POINT OF CARE TEST ORDERABLES Fi nal Result * (ABNORMAL) POCT URINE DIPSTICK, VISUAL READ (06/19/2022 12:26 EST) Color, UA Yellow Clarity, UA Cloudy Glucose, UA Negative . mg/dL Bilirubin, UA Negative Negative Ketones, UA Negative . mg/dL Spec Grav, UA 1.015 1.005 - 1.030 Blood, UA Trace(A) Negative pH, UA 6.5 4.6 - 8.0 Protein, UA Negative . mg/dL Urobilinogen, UA 0.2 0.2 - 1.0 E.U./dL Nitrite, UA Positive(A) . Leuk Esterase 3+(A) Negative Comment Urine URINE SPECIMEN COLLECTION, CLEAN CATCH / Unknown 06/19/2022 12:26 EST Trevon HENDRICKSC POINT OF CARE TEST ORDERABLES Fi nal Result documented in this encounter Visit Diagnoses Diagnosis Urinary tract infection in female- Primary documented in this encounter Administered Medications Inactive Administered Medications - up to 3 most recent administrations Medication Order MAR Action Action Date Dose Rate Site cefpodoxime (VANTIN) tablet 200 mg 200 mg, oral, NOW X1, 1 dose, On 06/19/22 at 1315, STAT Given 06/19/2022 13:20 EST 200 mg cefpodoxime (VANTIN) tablet 200 mg 200 mg, oral, NOW X1, 1 dose, On 06/19/22 at 1315, STAT Given 06/19/2022 13:19 EST 200 mg documented in this encounter Active and Recently Administered Medications Times are shown in EST. Scheduled Medication Order 06/17/2022 2022 06/19/2022 cefpodoxime (VANTIN) tablet 200 mg (COMPLETED) 200 mg, oral, NOW X1, 1 dose, On 06/19/22 at 1315, STAT 1320 (Given - Provid er: Jeannette Gooden RN) cefpodoxime (VANTIN) tablet 200 mg (COMPLETED) 200 mg, oral, NOW X1, 1 dose, On 06/19/22 at 1315, STAT 1319 (Given - Provid er: Jeannette Gooden RN) documented in this encounter Care Teams Artists' Model Relationship Specialty Start Date End Date Martha Saavedra FNP [address] [place] [address],[address] [place] [address] PCP - General 02/01/17 09/15/22 documented as of this encounter
--- OUTSIDE RECORDS SUMMARY | 2024-07-06 18:48 | XMS_ITS | Encounter Summary ---
Author Organization [facility] Address [address] [place] [address] Care Team Providers Care Practice Representative Name Role Phone None, Provider Primary Care Provider Unavailabl e Reason for Visit * Reason Onset Date Comments Labs Only 12/14/2022 Encounter Details Date Type Department Care Team (Late st Contact Info) Description 12/14/2022 Telephone [facility] Infectious Disease [address] [facility], [place], [place] [id number] Jeannette Mccann, RN [address] [place] [phone] Labs Only Social History Tobacco Use Types Packs/Day Years [...] have money to get more. Sometimes true [place] Depression Scale Answer Date Recorded [place] Depression Scale Total 9 05/16/2022 The thought [...] Answer Entry Date Author No 02/11/2022 23:00 SHEILAT Leif Altamirano RN documented in this encounter Miscellaneous Notes * Telephone Encounter - Jeannette Mccann RN - 01/20/2023 1034 EDT Letter sent to patient * Telephone Encounter - Jeannette Mccann RN - 01/09/2023 1400 EDT [employer] message sent * Telephone Encounter - Jeannette Mccann RN - 12/14/2022 1101 EDT Pt notified. * Telephone Encounter - Jeannette Mccann RN - 12/14/2022 0844 EDT ----- Message from Jeannette Mccann RN sent at 08/11/2022 12:22 EST ----- Due for 12 wk labs 12/16 documented in this encounter Plan of Treatment Not on file documented as of this encounter Visit Diagnoses Diagnosis Chronic hepatitis C without hepatic coma (HCC-CMS)- Primary Chronic hepatitis C without mention of hepatic coma documented in this encounter Care Teams Practice Representative Relationship Specialty Start Date End Date None, Provider PCP - General 09/16/22 05/23/23 documented as of this encounter
--- OUTSIDE RECORDS SUMMARY | 2024-07-06 18:48 | XMS_ITS | Encounter Summary ---
Author Organization [facility] Address [address] [place] [address] Care Team Providers Care Public Welfare Worker Name Role Phone Martha Saavedra Noe Harjeet [facility] Primary Care Provi devon None, Provider Primary Care Provider Trevon Billingsley MD Primary Care Provider Eliza Rain MD Unavailable [phone] [facility] Unavailable Reason for Visit * Reason Onset Date Comments Appointment Related 04/08/2022 Encounter Details Date Type Department Care Team (Late st Contact Info) Description 04/08/[address] [facility] OBGYN Services - Main [place] [address] [place] [address] Services, Comprehensive [employer] Appointment Related Social History Tobacco Use Types [...] * Telephone Encounter - Kassidy Verdugo - 04/08/2022 0842 EDT Called patient and left vmail with PPV appointment time at 04/15 at 11:15 AM documented in this encounter Plan of Treatment Not on file documented as of this encounter Visit Diagnoses Not on filedocumented in this encounter Care Teams Public Welfare Worker Relationship Specialty Start Date End Date Martha Saavedra FNP [address] [address] [place], [place] [address] PCP - General 02/01/17 09/15/22 None, Provider PCP - General 09/16/22 05/23/23 Trevon Boyd MD [address] [place] [phone] PCP - General Family Medicine - Primary Care 05/24/23 Eliza Rain MD [address] [place] [address] [address] [place] [address] Infectious Disease 05/24/23 Dona Casper NP CNM [address] [place] [address] [address] [place] [address] Corrosion Control Technician Midwifery 05/24/23 documented as of this encounter
--- OUTSIDE RECORDS SUMMARY | 2024-07-06 18:48 | XMS_ITS | Encounter Summary ---
Author Organization [facility] Address [address] [place] [address] Care Team Providers Care Mineral Surveyor Name Role Phone Martha Saavedra [facility] Primary Care Provi devon Reason for Visit * Reason Onset Date Comments Labs Only 09/01/2022 Encounter Details Date Type Department Care Team (Late st Contact Info) Description 09/01/2022 Telephone [facility] Infectious Disease [address] [facility], [place] [address] Vandana Long, RN Labs Only Social History Tobacco Use Types [...] have money to get more. Sometimes true [place] Depression Scale Answer Date Recorded [place] Depression Scale Total 9 05/16/2022 The thought [...] encounter Miscellaneous Notes * Telephone Encounter - Vandana Long RN - 09/13/2022 1514 EDT Patient has scheduled appointment for 09/20/22. Left voice-mail reminding patient to get labs at best 5 days before appointment. * Telephone Encounter - Vandana Long RN - 09/01/2022 1004 EDT Left voice-mail for patient to call back - missed 08/29/22 appointment - would like her to reschedule. Also - patient due for lab work (for 4 weeks of Hep C treatment). Lab order is already in. documented in this encounter Plan of Treatment Not on file documented as of this encounter Visit Diagnoses Not on filedocumented in this encounter Care Teams Mineral Surveyor Relationship Specialty Start Date End Date Martha Saavedra FNP [address] [facility] [address] PCP - General 02/01/17 09/15/22 documented as of this encounter
--- OUTSIDE RECORDS SUMMARY | 2024-07-06 18:48 | XMS_ITS | Encounter Summary ---
Author Organization [facility] Address [address] [place] [address] Care Team Providers Care Rotary Rig Engine Operator Name Role Phone Martha Saavedra Noe Harjeet [facility] Primary Care Provi devon Encounter Details Date Type Department Care Team (Late st Contact Info) Description 07/19/2022 Specialty Pharmacy [facility] - Main [place] [address] [place] [address] Alicia Boyd [facility] Social History Tobacco Use Types Packs/Day Years [...] have money to get more. 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 Treatment information: Prescriber: Dr. Rain ([facility] [place] Regimen: Mavyret x8 weeks Genotype: 3 Treatment: Naive Cirrhosis: N Fibrosis Stage: Fib-4 score: 0.89 HBV Status: Started vaccine series 07/11/22 Social Hx: h/o substance use disorder Specialty Pharmacy: [facility] Baseline labs: Lab Results Component Value Date/Time CREATININE 0.86 07/08/2022 10:49 HCT 42.0 07/08/2022 10:49 HGB 14.1 07/08/2022 10:49 AST 107 (H) 07/08/2022 10:49 ALT 139 (H) 07/08/2022 10:49 PLT 266 07/08/2022 10:49 TBIL 0.2 07/08/2022 10:49 LABALBU 4.1 07/08/2022 10:49 HCVRNADETQN 277,000 (H) 07/08/2022 10:49 HCVRNADETQN 73,900 (H) 12/06/2021 10:00 HCVRNADETQN 97,000 (H) 08/16/2021 15:28 Current medications: Outpatient Encounter Medications as of 07/19/2022 Medication Sig ??? acetaminophen (TYLENOL) 500 mg tablet Take 2 Tablets by mouth every 8 hours as needed for Pain.(Patient not taking: Reported on 07/11/2022) ??? ibuprofen (MOTRIN) 800 mg tablet Take 1 Tablet by mouth every 8 hours as needed for Pain. (Patient not taking: Reported on 07/11/2022) ??? methadone (DOLOPHINE) 10 mg tablet Take 135 mg by mouth daily. ??? VITAMIN PLUS LOW IRON 27 mg iron- 1 mg tablet tablet Take 1 Tablet by mouth daily for 360 days. ??? sertraline (ZOLOFT) 25 mg tablet Take 1 Tablet by mouth daily for 30 days. Facility-Administered Encounter Medications as of 07/19/2022 Medication ??? medroxyPROGESTERone (DEPO-PROVERA) syringe 150 mg Allergies Assessed Drug Interactions and Management Plan: No drug-drug interactions identified ??? DDI with current medication list checked using https://www.hep-druginteractions.org/baggage security checker ??? Will confirm medication list accuracy with patient prior to starting HCV treatment Comorbidities: reviewed Hepatic Function Assessment: Child Franco: no INR, no concerns for decompensated cirrhosis Renal Function Assessment: eCrCl = >60 mL/min Assessment: Female of childbearing potential: N, on depo provera Coinfection/Vaccination Assessment: Vaccine Date Result HAV Total Ab not done HBV 07/11/22 Immunization series started; SAb negative, SAg negative, CAb negative HIV 07/08/22 Negative Additional Notes: PA ready to submit Prior authorization submission will be initiated upon completion of above evaluation. The physicianand patient will be contacted with the result of the insurance company's coverage determination. Alicia Boyd, PharmD, BCACP (she/her) Community Administrator Pharmacist [facility] Specialty Pharmacy 07/19/2022 * Varsha Cisneros RP - 07/19/2022 1605 EST Medication Therapy Initiation Note Karin Dixon is a 27 y.o. female who will be starting treatment with Mavyret x8 weeks for Hepatitis C. Patient is treatment-naive. Treatment information: Prescriber: Dr. Rain ([facility]) Regimen: Mavyret x8 weeks Genotype: 3 Treatment: Naive Cirrhosis: N Fibrosis Stage: Fib-4 score: 0.89 HBV Status: Started vaccine series 07/11/22 Social Hx: h/o substance use disorder Specialty Pharmacy: [facility] Start date: 07/28/2022 Lab: [facility] Week Date SCr Hct/Hgb AST ALT HCV RNA Quant Pretreatment 07/08/2022 0.86 42.0/14.1 107 139 277,000 4 12 post-tx I performed a complete review of the patient???s medical record, including medications, immunizations, and allergies. Clinically relevant drug interactions identified and management plan: Medication list reconciled with the patient, no interactions at this time. Karin understands that we should be contacted shouldany additional medications be needed during her course of Mavyret so we can check for drug interactions Outpatient Encounter Medications as of 07/19/2022 Medication Sig ??? acetaminophen (TYLENOL) 500 mg tablet Take 2 Tablets by mouth every 8 hours as needed for Pain.(Patient not taking: Reported on 07/11/2022) ??? ibuprofen (MOTRIN) 800 mg tablet Take 1 Tablet by mouth every 8 hours as needed for Pain. (Patient not taking: Reported on 07/11/2022) ??? methadone (DOLOPHINE) 10 mg tablet Take 135 mg by mouth daily. ??? VITAMIN PLUS LOW IRON 27 mg iron- 1 mg tablet tablet Take 1 Tablet by mouth daily for 360 days. ??? sertraline (ZOLOFT) 25 mg tablet Take 1 Tablet by mouth daily for 30 days. Facility-Administered Encounter Medications as of 07/19/2022 Medication ??? medroxyPROGESTERone (DEPO-PROVERA) syringe 150 mg Assessment & Plan: Indication, effectiveness, safety, and convenience of specialty medications were reviewed today. Counseled the patient on the following: ??? Therapeutic rationale / Goals of therapy discussed ??? Dosage and administration discussed. Patient plans to take Mavyret in the morning with her breakfast shake. She will store the Mavyret in her lockbox along with her other daily medications (methadone, , sertraline) ??? Safe handling, storage, and disposal reviewed ??? Therapy contraindications discussed ??? Possible adverse effects and management discussed ??? Possible drug and prescription drug interactions discussed ??? Adherence and missed doses discussed ??? Lab monitoring and follow-up discussed. ??? Discussed that HCV treatment does not provide immunity to HCV. Potential barriers to therapy: no barriers identified. Patient is motivated to start therapy ?? No planned travel during medication therapy ?? No anticipated changes with insurance coverage ?? No concerns with medication adherence identified ?? Patient advised if hospitalized, to ensure HCV treatment is brought to hospital so no doses are missed ?? Female of child-bearing age, confirmed contraceptive plan: medroxyprogesterone injections (last dose 05/16/2023) Emergency contact: verified patient's listed emergency contact in chart is best person to contact if we cannot reach her. ??? Name: Bettie (relation: grandparents) ??? Phone number: [phone] Follow up: ??? Phone call: prior to second dispense ??? Labs: as ordered by [facility] infectious disease ??? Clinic appointment: 08/18/2022 Varsha Cisneros, SamanthaD BCACP Pharmacist Clinician - Neurology (covering for Alicia Boyd) 07/25/2022 documented in this encounter Plan of Treatment Not on file documented as of this encounter Visit Diagnoses Not on filedocumented in this encounter Care Teams Rotary Rig Engine Operator Relationship Specialty Start Date End Date Martha Saavedra FNP [address] [place] [address],[address] [place] [address] PCP - General 02/01/17 09/15/22 documented as of this encounter
--- OUTSIDE RECORDS SUMMARY | 2024-07-06 18:48 | XMS_ITS | Encounter Summary ---
Author Organization [facility] Address [address] [place] [address] Care Team Providers Care Yarn Sorter Name Role Phone Martha Saavedra Noe Harjeet [facility] Primary Care Provi devon Reason for Visit * Reason Onset Date Comments Medications Refill 04/25/2022 Vit/iron Encounter Details Date Type Department Care Team (Late st Contact Info) Description 04/25/2022 Telephone [facility] - [facility] [address] [place] [address] Dona Casper NP CN [address] [facility], [address] [place] [address] Medications Refill (Vit/iron) Social History Tobacco Use Types Packs/Day Years [...] Telephone Encounter - Misti Baxter RN - 04/25/2022 6444 EST Chart reviewed - the PNV/Iron rx was refilled on 04/21/22 Spoke with pt; she will call pharmacy * Telephone Encounter - Shruthi Martin - 04/25/2022 0907 EST Needs a refill on vit/iron. Doritaeens. documented in this encounter Plan of Treatment Not on file documented as of this encounter Visit Diagnoses Not on filedocumented in this encounter Care Teams Yarn Sorter Relationship Specialty Start Date End Date Martha Saavedra FNP [address] [facility],[address] [place] [address] PCP - General 02/01/17 09/15/22 documented as of this encounter
--- OUTSIDE RECORDS SUMMARY | 2024-07-06 18:48 | XMS_ITS | Encounter Summary ---
Author Organization [facility] Address [address] [place] [address] Care Team Providers Care General Office Dispatcher Name Role Phone Martha Saavedra Noe Harjeet [facility] Primary Care Provi devon Reason for Visit * Reason Onset Date Comments Advice Only 02/21/2022 Encounter Details Date Type Department Care Team (Late st Contact Info) Description 02/21/2022 Telephone [facility] - [facility] [address] [place], [place] [id number] Chiara Diallo, [address] [place] [address] Advice Only Social History Tobacco Use Types Packs/Day [...] Telephone Encounter - Leida Dempsey RN - 02/21/2022 7904 EDT Attempted to call pt to discuss her needs. Do not have SSN information for baby. This RN was willing to call [employer] to see how we can help her apply. No answer from pt and unable to LM as her VM box is not set up. Will try again later. 1537- 2nd attempt to call pt. Pt states that she just got off the phone with medical records and they are sending over the information to [employer]. She doesn't have any other needs at this time. Given direct line for RNs if she has any other needs. * Telephone Encounter - Kusum Eddy - 02/21/2022 1437 EDT Pt calling in asking that a note be faxed to [employer] fax number [phone] so that she can apply for reach up. Is stating that she needs the note to contain her sons social security number or proof that one hasbeen applied for. Pt anxious, asking note be faxed as soon as possible. Is this something we would be able to do? documented in this encounter Plan of Treatment Not on file documented as of this encounter Visit Diagnoses Not on filedocumented in this encounter Care Teams General Office Dispatcher Relationship Specialty Start Date End Date Martha Saavedra FNP [address] [facility],[address] [place] [address] PCP - General 02/01/17 09/15/22 documented as of this encounter
--- OUTSIDE RECORDS SUMMARY | 2024-07-06 18:48 | XMS_ITS | Encounter Summary ---
Author Organization [facility] Address [address] [place] [address] Care Team Providers Care Functional Tester Name Role Phone Nel Saavedranavi Maonings [facility] Primary Care Provi devon None, Provider Primary Care Provider Unavailabl e Reason for Visit * Reason Comments Follow-up Encounter Details Date Type Department Care Team (Latest Contact Info) Description 05/16/2022 11:20 EST Office Visit [facility] O[facility] [address] [place] [address] Dona Casper NP CN [address] [facility], [address] [place] [address] Encounter for surveillance of injectable contraceptive (Primary Dx); Chronic hepatitis C without hepatic coma (HCC-CMS); [...] have money to get more. Sometimes true [place] Depression Scale Answer Date Recorded [place] Depression Scale Total 9 05/16/2022 The thought [...] Leif Altamirano RN documented in this encounter Progress Notes * Dona Casper APRN - 05/16/2022 1120 EST Subjective: Here for DMPA injection with RN. Has missed her PP visits here in our office. Here with son - overall doing well and very proud of her accomplishments. Delivered at [facility] - was being followed closely due to IUGR Had 1 month admission at [facility] - and during that time, stopped using substances Continues to excel in her treatment trajectory Has take home doses now She and partner living in own appt [place] being a mom! Contraception - likes the depo shot and wants to continue this method for now. Aware she has other options if changes her mind. Pap is UTD - last done 12/2019 and normal. Due for repeat summer 2022. Not yet sexually active. Hepatitis C - [facility] referred her to GI provider at [facility]. Interested to have labs repeated and to be seen closer to [place], including [place] [facility]. Referral to ID placed. Anxiety - struggling and didn't start the sertraline prescribed at [facility]. Will resume it at . It is for 25 mg. Reviewed use - 25 mg daily x 6 days, then ok to increase to 50 mg daily Objective: Appears well, NAD Assessment: 1. Encounter for surveillance of injectable contraceptive Depo provera x 1 today Reviewed return in 11 to 13 wks Prefers this method for now Fine to refill x 1 yr 2. Chronic hepatitis C without hepatic coma (HCC-CMS) (HCC) Message to Dr. Rain to ensure reasonable referral rather than waiting for GI Will get new baseline labs! - COMPREHENSIVE METABOLIC PANEL (CMP); Future - HCV RNA QUANT WITH REFLEX TO GENOTYPE; Future - AMB CONS/FOLLOW UP ADULT INFECTIOUS DISEASE; Future 3. Substance use disorder Support, encouragement Continue with MAT program 4. Anxiety - resume the sertraline. Follow up in 2-3 weeks to check in on the medication. Dona Casper CNM, WEB DESIGN INTERN Certified Nurse Meteorological Engineer & Family Nurse Practitioner documented in this encounter Plan of Treatment Not on file documented as of this encounter Results * (ABNORMAL) HCV RNA QUANT WITH REFLEX TO GENOTYPE (07/08/2022 10:49 EST) HCV RNA Quantitative 277,000(H ) Undetected IU/mL 07/11/2022 11:29 EST [facility] HCV RNA Qualitative Detected( A) Undetected 07/11/2022 11:29 EST [facility] Blood VENOUS BLOOD / Unknown Venipuncture / Unknown 07/08/2022 10:49 EST 07/08/2022 11:46 EST Narrative [facility] - 07/11/2022 11:29 EST The quantification range of this assay is 15 IU/mL to 100,000,000 IU/mL. Testing was performed using the [place] HCV test ([employer] with the cheyenne 6800 System. us Dona Luisa Casper NP CNM CHEMISTRY & BLO OD GAS ORDERABLES Final Result [facility] [address] [place] [address] * (ABNORMAL) COMPREHENSIVE METABOLIC PANEL (CMP) (07/08/2022 10:49 EST) Pathologist [facility] Sodium 143 136 - 145 mmol/L 07/08/2022 12:21 [facility] Potassium 4.0 3.5 - 5.0 mmol/L 07/08/2022 12:21 [facility] Chloride 107 96 - 110 mmol/L 07/08/2022 12:21 [facility] CO2 Total 22 22 - 32 mmol/L 07/08/2022 12:21 [facility] Glucose 81 70 - 100 mg/dL 07/08/2022 12:21 [facility] BUN 10 10 - 26 mg/dL 07/08/2022 12:21 [facility] Creatinine 0.86 0.52 - 1.04 mg/dL 07/08/2022 12:21 [facility] eGFR 95 >60 mL/min/1.7 3m2 07/08/2022 12:21 [facility] Total Protein 7.1 6.3 - 8.2 g/dL 07/08/2022 12:21 [facility] Albumin 4.1 3.4 - 4.9 g/dL 07/08/2022 12:21 [facility] Alkaline Phosphatase 48 38 - 126 U/L 07/08/2022 12:21 [facility] AST 107(H) 15 - 46 U/L 07/08/2022 12:21 [facility] ALT 139(H) <35 U/L 07/08/2022 12:21 [facility] Bilirubin, Total 0.2 <1.4 mg/dL 07/08/19 12:21 [facility] Calcium 8.7 8.5 - 10.5 mg/dL 07/08/2022 12:21 [facility] Albumin/Globulin Ratio 1.4 1.0 - 2.5 07/08/2022 12:21 [facility] Anion Gap 14 5 - 14 07/08/2022 12:21 [facility] Blood VENOUS BLOOD / Unknown Venipuncture / Unknown 07/08/2022 10:49 EST 07/08/2022 11:46 EST us Dona Casper GEAR HOBBER SET UP OPERATOR CNM CHEMISTRY & BLO OD GAS ORDERABLES Final Result Performing Organization Address City/State/[facility] Co de Phone Number [facility] [address] [place] [address] documented in this encounter Visit Diagnoses Diagnosis Encounter for surveillance of injectable contraceptive- Primary Surveillance of other previously prescribed contraceptive method Chronic hepatitis C without hepatic coma (HCC-CMS) Chronic hepatitis C without mention of hepatic coma Substance use disorder documented in this encounter Care Teams Functional Tester Relationship Specialty Start Date End Date Martha Saavedra FNP [address] [place] [address],[address] [place] [address] PCP - General 02/01/17 09/15/22 None, Provider PCP - General 09/16/22 05/23/23 documented as of this encounter
--- OUTSIDE RECORDS SUMMARY | 2024-07-06 18:48 | XMS_ITS | Encounter Summary ---
Author Organization [facility] Address [address] [place] [address] Care Team Providers Care Napper Grinder Name Role Phone Martha Saavedra Noe Harjeet [facility] Primary Care Provi devon Reason for Visit * Reason Onset Date Comments Appointment Related 06/08/2022 Pt missed to day's appt wants a call. Encounter Details Date Type Department Care Team (Late st Contact Info) Description 06/08/2022 Telephone [facility] [address] [place] [address] Dona Casper NP [facility] [address] [facility], [address] [place] [address] Appointment Related (Pt missed today's appt wants a call.) Social History Tobacco Use Types Packs/Day Years [...] have money to get more. Sometimes true [place] Depression Scale Answer Date Recorded [place] Depression Scale Total 9 05/16/2022 The thought [...] Telephone Encounter - Dona Casper APRN - 06/08/2022 1722 EST Message left for Karin. Reminded her to please go for her labs. I will call her next week when I am back in the office. In the meantime - would favor a MyChart message from her with an update! Dona Casper CNM, SMELTER CHARGER Certified Nurse English Language Arts Teacher & Family Nurse Practitioner v * Telephone Encounter - Natacha Gonzalez - 06/08/2022 1137 EST Pt returned call, she will keep her phone with her * Telephone Encounter - Dona Casper APRN - 06/08/2022 1039 EST I left her a message asking her to call back. If I am available, happy to connect by phone today. Thanks! * Telephone Encounter - Misti Baxter, ALLEN - 06/08/2022 1028 EST Chart reviewed - pt was scheduled for OV with EV today. Plan was to f/u today on medication for anxiety. Dona - please advise; would you like pt r/s for perhaps a TM appt? * Telephone Encounter - Natacha Gonzalez - 06/08/2022 1017 EST Pt called to cancel 11:30 appt- she was due at 10:00am. She asked to have Dona call her, I told her I would send a note to the provider , she said not worries, we have a great relationship- FYI I explained it wasn't about the relationship,the provider may be delivering a baby and is booked solid. documented in this encounter Plan of Treatment Not on file documented as of this encounter Visit Diagnoses Not on filedocumented in this encounter Care Teams Napper Grinder Relationship Specialty Start Date End Date Martha Saavedra FNP [address] [facility],[address] [place] [address] PCP - General 02/01/17 09/15/22 documented as of this encounter
--- OUTSIDE RECORDS SUMMARY | 2024-07-06 18:49 | XMS_ITS | Encounter Summary ---
Author Organization [facility] Address [address] [place] [address] Care Team Providers Care Auto Driver Name Role Phone Martha Saavedra [facility] Primary Care Provi devon Reason for Visit * Reason Comments Non-stress Test * (Routine/Next Available) - Receiving Office to Obtain Authorization Specialty Diagnoses / Procedures Referred By Ferny dubose Referred To Contact Diagnoses Poor growth affecting management of mother in third trimester, single or unspecified fetus Procedures NONSTRESS TEST Skye Douglas MD Phone: tel: fax: Referral ID Status Reason Start Date Expiration Date Visits Requested Visits Authorized [id number] Receiving Office to Obtain Authorization 12/09/2021 1 1 Encounter Details Date Type Department Care Team (Late st Contact Info) Description 12/23/2021 8:30 EDT Office Visit [facility] - [address] [address] Poor growth affecting management of mother in third trimester, not applicable or unspecified fetus (Primary Dx); Poor growth affecting management of mother in third trimester, single or unspecified fetus Social History Tobacco Use Types Packs/Day Years [...] Verbally Threaten Not on file 01/13/2020 Comments Yes Sex and Gender Information Value Date Recorded [...] Sign Reading Time Taken Comments Blood Pressure 119/64 12/23/2021 0839 EDT Pulse - - Temperature - - Respiratory Rate - - Oxygen Saturation - - Inhaled Oxygen Concentration - - Weight - - Height - - Body Mass Index - - documented in this encounter Functional Status * Are you deaf or do you have serious difficulty hearing? Answer Date of Assessment Author No 11/16/2021 20:00 Kenzie Soares RN * Are you blind or do you have serious difficulty seeing, even when wearing glasses? Answer Date of Assessment Author No 11/16/2021 20:00 Kenzie Soares RN * Do you have serious difficulty walking or climbing stairs? (5 years old or older) Answer Date of Assessment Author No 11/16/2021 20:00 Kenzie Soares RN * Do you have difficulty dressing or bathing? (5 years old or older) Answer Date of Assessment Author No 11/16/2021 20:00 Kenzie Soares RN * Because of a physical, mental, or emotional condition, do you have difficulty doing errands alone such as visiting a doctor's office or shopping? (15 years old or older) Answer Date of Assessment Author No 11/16/2021 20:00 Kenzie Soares RN documented as of this encounter Mental Status * Because of a physical, mental, or emotional condition, do you have serious difficulty concentrating, remembering, or making decisions? (5 years old or older) Answer Entry Date Author No 11/16/2021 20:00 EDT Kenzie Mcclure RN documented in this encounter Progress Notes * Aleksey Gerber MD - 12/23/2021 0830 EDT NST Report Baseline Heart Rate: 125 Accelerations: present Movement: present Decelerations: absent Contractions: absent Interpretation: reactive Aleksey Gerber MD 12/23/2021 8:53 documented in this encounter Plan of Treatment Not on file documented as of this encounter Visit Diagnoses Diagnosis Poor growth affecting management of mother in third trimester, single or unspecified fetus documented in this encounter Orders OB Count Last Ordered Date First Orde red Date NONSTRESS TEST 1 12/23/2021 documented in this encounter Care Teams Auto Driver Relationship Specialty Start Date End Date Martha Saaverda FNP [address] [facility] [place] [address] PCP - General 02/01/17 09/15/22 documented as of this encounter
--- OUTSIDE RECORDS SUMMARY | 2024-07-06 18:49 | XMS_ITS | Encounter Summary ---
Author Organization [facility] Address [address] [place] [address] Care Team Providers Care Licensed Reactor Operator Name Role Phone Martha Saavedra Noe Harjeet [facility] Primary Care Provi devon Reason for Visit * Reason Comments Social Work Encounter Details Date Type Department Care Team (Late st Contact Info) Description 01/04/2022 Community Health Team [facility] OBGYN Services - [facility] [address] [place], [place] [id number] Jeannette Post Social History Tobacco Use Types Packs/Day Years [...] Date of Assessment Author No 11/16/2021 20:00 EDT Kenzie Mcclure RN * Are you blind or do you have serious difficulty seeing, even when wearing glasses? Answer Date of Assessment Author No 11/16/2021 20:00 EDT Kenzie Mcclure RN * Do you have serious difficulty walking or climbing stairs? (5 years old or older) Answer Date of Assessment Author No 11/16/2021 20:00 EDT Kenzie Mcclure RN * Do you have difficulty dressing or bathing? (5 years old or older) Answer Date of Assessment Author No 11/16/2021 20:00 EDT Kenzie Mcclure RN * Because of a physical, mental, or emotional condition, do you have difficulty doing errands alone such as visiting a doctor's office or shopping? (15 years old or older) Answer Date of Assessment Author No 11/16/2021 20:00 EDT Kenzie Mcclure RN documented as of this encounter Mental Status * Because of a physical, mental, or emotional condition, do you have serious difficulty concentrating, remembering, or making decisions? (5 years old or older) Answer Entry Date Author No 11/16/2021 20:00 Kenzie Soares RN documented in this encounter Progress Notes * Jeannette Post - 01/04/2022 1339 EDT SUZANNE supported patient in calling T to enroll in Medicaid cab rides. Per T ([phone]) she needs to call Medicaid ([phone]) to change her address, and then they will do the DMV check (3-5 days). Patient confirms understanding. SUZANNE scheduled GC for this 's appointments with the understanding patient will schedule with Medicaid moving forward. .. [facility] Total Time: 20 minutes phone, 15 minutes care coordination, 5 minutes charting Referral: n/a Follow up: onoging Status: Active documented in this encounter Plan of Treatment Not on file documented as of this encounter Visit Diagnoses Not on filedocumented in this encounter Care Teams Licensed Reactor Operator Relationship Specialty Start Date End Date Martha Saavedra FNP [address] [place] [address] PCP - General 02/01/17 09/15/22 documented as of this encounter
--- OUTSIDE RECORDS SUMMARY | 2024-07-06 18:49 | XMS_ITS | Encounter Summary ---
Author Organization [facility] Address [address] [place] [address] Care Team Providers Care Home Therapy Teacher Name Role Phone Martha Saavedra [facility] Primary Care Provi devon Reason for Referral * HOLDER PILE DRIVING (Routine/Next Available) - Order Cancelled Specialty Diagnoses / Procedures Referred By Contac t Referred To Contact Diagnoses Poor growth affecting management of mother in third trimester, single or unspecified fetus Procedures US OB BIOPHYSICAL PROFILE WITH NON STRESS Skye Douglas MD Phone: tel: fax: ASSISTED Referral ID Status Reason Start Date Expiration Date V isits Requested Visits Authorized [id number] Order Cancelled 12/10/2021 15 15 Reason for Visit * HOLDER PILE DRIVING (Routine/Next Available) - Order Cancelled Specialty Diagnoses / Procedures Referred By Contaudi t Referred To Contact Diagnoses Poor growth affecting management of mother in third trimester, single or unspecified fetus Procedures US OB BIOPHYSICAL PROFILE WITH NON STRESS Skye Douglas MD Phone: tel: fax: ASSISTED Referral ID Status Reason Start Date Expiration Date V isits Requested Visits Authorized [id number] Order Cancelled 12/10/2021 15 15 Encounter Details Date Type Department Care Team (Latest Contact Info) Description 01/06/2022 14:05 EDT - 01/06/2022 23:59 EDT Hospital Encounter [facility] Obstetrics Services - [address] [address] Poor growth affecting management of mother in third trimester, single or unspecified fetus Discharge Disposition: Home or Self Care Social [...] Kenzie Mcclure RN documented in this encounter Medications at Time of Discharge methadone (DOLOPHINE) 10 mg tablet Take 13.5 Tablets by mouth daily. ferrous gluconate (FERGON) 324 mg (38 mg iron) tablet Take 1 Tablet by mouth daily with breakfast for 90 days. 30 Tablet 2 12/10/2021 2 multivitamin vit-iron fumarate-FA (STUARTNATAL) 27 mg iron- 1 mg tablet tablet Take 1 Tablet by mouth daily for 90 days. 30 Tablet 2 12/09/2021 2 sertraline (ZOLOFT) 25 mg tablet Take 1 Tablet by mouth daily for 90 days. Take 1/2 tablet daily for 2 weeks, then increase 1 tab daily. 30 Tablet 2 01/06/2022 2 documented as of this encounter Discharge Disposition Disposition Code Departure Means Destination Home or Self Care documented in this encounter Plan of Treatment Not on file documented as of this encounter Procedures Procedure Name Priority Date/Time Associated Diagnosis Comments US OB BIOPHYSICAL PROFILE WITH NON STRESS Routine 01/06/2022 15:31 EDT Poor growth affecting management of mother in third trimester, single or unspecified fetus documented in this encounter Results * US OB BIOPHYSICAL PROFILE WITH NON STRESS (01/06/2022 15:31 EDT) Anatomical Region Laterality Modality Pelvis Ultrasound 01/06/2022 14:2 9 EDT Narrative 01/06/2022 15:36 EDT Indication ======== Maternal substance use. History FGR @ 25w6d <1% 12/06/13 EFW 14% @ 29w1d 12/30/21 EFW 23% @33w4d. History ====== General History Height 168 cm Height (ft) ?5 ft Height (in) ?6 in Previous Outcomes ?2 Para ?? 1 Pregnancies delivered at term (T) ??1 Pregnancies delivered (P) ??0 Abortions (A) ??0 Living children (L) ?1 Maternal Assessment Height 168 cm Height (ft) ?5 ft Height (in) ?6 in Physical Exam Initial weight 53 kg Initial weight (lb) ?116 lb Initial BMI ?18.72 kg/m?? ========= Number of fetuses: 1 Dating ====== LMP on: ?05/12/2021 GA by LMP ??34 w + 1 d MYCHAL by LMP : ? 02/16/2022 Previous Ultrasound on: ?08/10/2021 Type of prior assessment: ??CRL U/S measurement at prior assessment date ?? 56.3 mm GA by previous U/S 33 w + 4 d MYCHAL by previous Ultrasound: ?02/20/2022 Assigned: ??based on ultrasound (CRL), selected on 11/13/2021 Assigned GA ?33 w + 4 d Assigned MYCHAL: ??02/20/2022 General Evaluation Cardiac activity Present. FHR 120 bpm. movements: visualized. Presentation: cephalic, spine maternal left Placenta: anterior Amniotic Fluid Assessment Amount of AF: normal MVP 6.0 cm. CHAS 15.6 cm. Q1 3.3 cm, Q2 4.7 cm, Q3 6.0 cm, Q4 1.5 cm Biophysical Profile 2: breathing movements 2: Gross body movements 2: tone 2: Amniotic fluid volume NST: reactive 03/21 Biophysical profile score Interpretation: normal DVD number 3059, Duration: 20 minutes Growth Overview Exam date ??GA ??BPD (mm) ?HC (mm) AC (mm) FL (mm) HL (mm) EFW (g) 11/13/2021 ??25w 6d ??52.9 ?<1% 214.8 ?? 4% ??193.8 ?? 4% ??40.5 ?2% ??39.7 ?5% ??607 <1% 12/06/2021 29w 1d ??68.3 ?4% ??255.1 ?? 12% 257.7 ?? 68% 50.5 ?6% ??1257 ?14% 12/30/2021 32w 4d ??81.7 ?50% 303.6 ?? 55% 281.6 ?? 38% 60.3 ?27% 51.1 ?3% ??1914 ?23% Method ====== Voluson E10, Transabdominal ultrasound examination. View: Good view Impression ========= [id number] Biophysical Profile (including NST) This is a paiz . Please see BPP score above. Follow-up ======== Follow-up with weekly BPPs. DATE OF SERVICE: 01/06/2022 Procedure Note Beverly Gu MD - 01/06/2022 Indication ======== Maternal substance use. History FGR @ 25w6d <1% 12/06/13 EFW 14% @ 29w1d 12/30/21 EFW 23% @33w4d. History ====== General History Height 168 cm Height (ft) 5 ft Height (in) 6 in Previous Outcomes 2 Para 1 Pregnancies delivered at term (T) 1 Pregnancies delivered (P) 0 Abortions (A) 0 Living children (L) 1 Maternal Assessment Height 168 cm Height (ft) 5 ft Height (in) 6 in Physical Exam Initial weight 53 kg Initial weight (lb) 116 lb Initial BMI 18.72 kg/m?? ========= Number of fetuses: 1 Dating ====== LMP on: 05/12/2021 GA by LMP 34 w + 1 d MYCHAL by LMP : 02/16/2022 Previous Ultrasound on: 08/10/2021 Type of prior assessment: CRL U/S measurement at prior assessment date 56.3 mm GA by previous U/S 33 w + 4 d MYCHAL by previous Ultrasound: 02/20/2022 Assigned: based on ultrasound (CRL), selected on 11/13/2021 Assigned GA 33 w + 4 d Assigned MYCHAL: 02/20/2022 General Evaluation Cardiac activity Present. FHR 120 bpm. movements: visualized.Presentation: cephalic, spine maternal left Placenta: anterior Amniotic Fluid Assessment Amount of AF: normal MVP 6.0 cm. CHAS 15.6 cm. Q1 3.3 cm, Q2 4.7 cm, Q3 6.0 cm, Q4 1.5 cm Biophysical Profile 2: breathing movements 2: Gross body movements 2: tone 2: Amniotic fluid volume NST: reactive 10/10 Biophysical profile score Interpretation: normal DVD number 3059, Duration: 20 minutes Growth Overview Exam date GA BPD (mm) HC (mm) AC (mm) FL (mm) HL (mm) EFW (g) 11/13/2021 25w 6d 52.9 <1% 214.8 4% 193.8 4% 40.5 2% 39.75% 607 <1% 12/06/2021 29w 1d 68.3 4% 255.1 12% 257.7 68% 50.5 6% 837561% 12/30/2021 32w 4d 81.7 50% 303.6 55% 281.6 38% 60.3 27% 51.13% 1914 23% Method ====== Voluson E10, Transabdominal ultrasound examination. View: Good view Impression ========= [id number] Biophysical Profile (including NST) This is a paiz . Please see BPP score above. Follow-up ======== Follow-up with weekly BPPs. DATE OF SERVICE: 01/06/2022 us Albert Hayes MD IMG US OB ORDERABLES Chloe l Result documented in this encounter Visit Diagnoses Diagnosis Poor growth affecting management of mother in third trimester, single or unspecified fetus documented in this encounter Care Teams Home Therapy Teacher Relationship Specialty Start Date End Date Martha Saavedra FNP [address] [facility] [address] [place] [address] PCP - General 02/01/17 09/15/22 documented as of this encounter
--- OUTSIDE RECORDS SUMMARY | 2024-07-06 18:49 | XMS_ITS | Encounter Summary ---
Author Organization [facility] Address [address] [place] [address] Care Team Providers Care Pricing Manager Name Role Phone Martha Saavedra Noe Harjeet [facility] Primary Care Provi devon Reason for Visit * Reason Onset Date Comments Follow-up 12/13/2021 Encounter Details Date Type Department Care Team (Late st Contact Info) Description 12/13/2021 Telephone [facility] Obstetrics & Midwifery - [facility] [address] [place] [address] Skye Douglas MD [address] [place] [phone] Follow-up Social History Tobacco Use Types Packs/Day [...] suspected to have Coronavirus/COVID-19? No / Unsure 11/13/2021 9:53 EDT documented as of this encounter Functional [...] Answer Entry Date Author No 11/16/2021 20:00 SHEILAT Kenzie Mcclure RN documented in this encounter Miscellaneous Notes * Telephone Encounter - Leida Dempsey RN - 12/16/2021 1112 EDT Attempted to call pt to check in re: appts for today (tow picker time in approx 5 mins). No answer from pt. Unable to LM on her phone, as her VM box is full. The other number is not a valid number. * Telephone Encounter - Leida Dempsey RN - 12/14/2021 1436 EDT Set up Green cab ride through [employer] for 12/16. fiber optics supervisor at 11:15 AM at her home in [place]. 1230 NST 1415 APV w/ Dr Castanon Return ride at 1500- tow picker at [facility]. Attempted to call pt to inform of this information, but no answer from pt. LM with the above information. Advised that she call back to confirm that she got this message and that she plans on attending her appts. * Telephone Encounter - Keila Steve RN - 12/14/2021 1146 EDT TC to pt, LM on VM, asked pt to call office back to further discuss questions. * Telephone Encounter - Grace Petersen - 12/13/2021 1335 EDT Patient is calling regarding her transportation for and when the appointments at [facility] may start ?? Please call patient. documented in this encounter Plan of Treatment Not on file documented as of this encounter Visit Diagnoses Not on filedocumented in this encounter Care Teams Pricing Manager Relationship Specialty Start Date End Date Martha Saavedra FNP [address] [facility] [address] [place] [address] PCP - General 02/01/17 09/15/22 documented as of this encounter
--- OUTSIDE RECORDS SUMMARY | 2024-07-06 18:49 | XMS_ITS | Encounter Summary ---
Author Organization [facility] Address [address] [place] [address] Care Team Providers Care Client Technical Professional Name Role Phone Martha Saavedra Noe Harjeet [facility] Primary Care Provi devon Reason for Visit * Reason Onset Date Comments 12/16/2021 nst's Encounter Details Date Type Department Care Team (Late st Contact Info) Description 12/16/2021 Telephone [facility] OBG[facility] [address] [place] [address] Beverly Escalante MD [address] [facility] [place] [address] (nst's) Social History Tobacco Use Types Packs/Day Years [...] encounter Miscellaneous Notes * Telephone Encounter - Bettina Veloz RN - 12/16/2021 5918 EDT Spoke with Leida at [facility] again and she states that their doctors consulted again and are going to forego the nst's at our office so we can disregard as they are NOT going to have nst's at [facility]. * Telephone Encounter - Bettina Veloz RN - 12/16/2021 1421 EDT Spoke with Leida and let her know that we needed director input on this decision for NST's due ifnon-reassuring testing and need for delivery we would not want to deliver prematurely here. Erasmo [facility] would be doing thrusday NST and imaging. Advised of JV concern and that we will have review and let them know. (Leida number [phone]). To for review. * Telephone Encounter - Bettina Veloz RN - 12/16/2021 1355 EDT Left message for Leida the nurse to call back. * Telephone Encounter - Beverly Escalante MD - 12/16/2021 1337 EDT I would like to get the approval of Dr Quarles on this one. I transferred this patient last time and almost had to perform an emergency c/s here at 26 weeks due to the severity of the testing. Luckily because they thought they wouldn't deliver her she was accepted to [facility] but NICU was full. I am concerned if the testing is nonreassuring and nicu full we will have to prematurely deliver her here and we do not have NICU. Please let them know I need our directors input and then forward to for review on Monday. * Telephone Encounter - Bettina Veloz RN - 12/16/2021 1329 EDT Spoke with Leida the nurse at [facility] Women's. Regarding this pt who is under the care of [facility] (after being transferred from [facility]). [facility] is requesting pt get weekly nst at [facility] for growth restriction so pt can have less travel. Currently pt is 30w4d. To JV for review and recommendations. * Telephone Encounter - Shruthi Martin - 12/16/2021 1323 EDT [facility] needs to set up for NST's on Monday afternoons. documented in this encounter Plan of Treatment Not on file documented as of this encounter Visit Diagnoses Not on filedocumented in this encounter Care Teams Client Technical Professional Relationship Specialty Start Date End Date Martha Saavedra FNP [address] [facility] [place] [address] PCP - General 02/01/17 09/15/22 documented as of this encounter
--- OUTSIDE RECORDS SUMMARY | 2024-07-06 18:49 | XMS_ITS | Encounter Summary ---
Author Organization [facility] Address [address] [place] [address] Care Team Providers Care Singe Winder Name Role Phone QuentinMartha [facility] Primary Care Provi devon Reason for Referral * VASCULAR PHYSICIAN (Routine/Next Available) - Closed Specialty Diagnoses / Procedures Referred By Contac t Referred To Contact Diagnoses Poor growth affecting management of mother in third trimester, not applicable or unspecified fetus Procedures US OB FOLLOWUP Kelly Pride MD MPH Phone: tel: fax: [facility] Referral ID Status Reason Start Date Expiration Date Visits Re quested Visits Authorized [id number] Closed 12/19/2021 2 2 * VASCULAR PHYSICIAN (Routine/Next Available) - Order Cancelled Specialty Diagnoses / Procedures Referred By Contac t Referred To Contact Diagnoses Poor growth affecting management of mother in third trimester, single or unspecified fetus Procedures US OB BIOPHYSICAL PROFILE WITH NON STRESS Skye Douglas MD Phone: tel: fax: [facility] Referral ID Status Reason Start Date Expiration Date V isits Requested Visits Authorized [id number] Order Cancelled 12/10/2021 15 15 Reason for Visit * VASCULAR PHYSICIAN (Routine/Next Available) - Order Cancelled Specialty Diagnoses / Procedures Referred By Contac t Referred To Contact Diagnoses Poor growth affecting management of mother in third trimester, single or unspecified fetus Procedures US OB BIOPHYSICAL PROFILE WITH NON STRESS Skye Douglas MD Phone: tel: fax: [facility] Referral ID Status Reason Start Date Expiration Date V isits Requested Visits Authorized [id number] Order Cancelled 12/10/2021 15 15 Encounter Details Date Type Department Care Team (Latest Contact Info) Description 01/20/2022 15:53 EDT - 01/20/2022 23:59 EDT Hospital Encounter [facility] [place] [address] Poor growth affecting management of mother in third trimester, single or unspecified fetus; Poor growth affecting management of mother in third trimester, not applicable or unspecified fetus Discharge Disposition: Home or [...] Kenzie Soares RN documented in this encounter Medications at [...] documented in this encounter Plan of Treatment Pending Results Name Type Priority Associated Diagnoses Date /Time US OB BIOPHYSICAL PROFILE WITH NON STRESS Imaging Routine Poor growth affecting management of mother in third trimester, single or unspecified fetus 01/20/2022 16:54 EDT Scheduled Orders Name Type Priority Associated Diagnoses Orde r Schedule US OB BIOPHYSICAL PROFILE WITH NON STRESS Imaging Routine Poor growth affecting management of mother in third trimester, single or unspecified fetus 1 Occurrences starting 01/20/2022 until 01/20/2022 documented as of this encounter Procedures Procedure Name Priority Date/Time Associated Diagnosis Comments US OB FOLLOWUP Routine 01/20/2022 16:54 EDT Poor growth affecting management of mother in third trimester, not applicable or unspecified fetus documented in this encounter Results * US OB FOLLOWUP (01/20/2022 16:54 EDT) Anatomical Region Laterality Modality Pelvis Ultrasound 01/20/2022 16:2 5 EDT Narrative 01/20/2022 17:34 EDT Indication ======== Maternal substance use. History FGR @ 25w6d <1% 12/06/13 EFW 14% @ 29w1d 12/30/21 EFW 23% @33w4d. History ====== General History Height 168 cm Height (ft) ?5 ft Height (in) ?6 in Previous Outcomes ?2 Para ?? 1 Pregnancies delivered at term (T) ??1 Pregnancies delivered (P) ??0 Abortions (A) ??0 Living children (L) ?1 ========= Number of fetuses: 1 Maternal Assessment Height 168 cm Height (ft) ?5 ft Height (in) ?6 in Physical Exam Initial weight 53 kg Initial weight (lb) ?116 lb Initial BMI ?18.72 kg/m?? Dating ====== LMP on: ?05/12/2021 GA by LMP ??36 w + 1 d MYCHAL by LMP : ? 02/16/2022 Previous Ultrasound on: ?08/10/2021 Type of prior assessment: ??CRL U/S measurement at prior assessment date ?? 56.3 mm GA by previous U/S 35 w + 4 d MYCHAL by previous Ultrasound: ?02/20/2022 Ultrasound examination on: 01/20/2022 GA by U/S based upon: ??AC, BPD, Femur, HC GA by U/S ??34 w + 1 d MYCHAL by U/S: ?03/02/2022 Assigned: ??based on ultrasound (CRL), selected on 11/13/2021 Assigned GA ?35 w + 4 d Assigned MYCHAL: ??02/20/2022 General Evaluation Cardiac activity Present. FHR 124 bpm. movements: visualized. Presentation: cephalic, spine maternal left Placenta: anterior, right Umbilical cord: 3 vessel cord Amniotic fluid: Amount of AF: normal, normal. MVP 5.4 cm. CHAS 15.6 cm. Q1 4.5 cm, Q2 4.0 cm, Q3 5.4 cm, Q4 1.8 cm Anatomy Cranium: ?? normal Lateral ventricles: ?normal Midline falx: ??normal Head / Neck Cranium: ?? normal shape and size, normal shape and size 4-chamber view: ?normal Stomach: ?? normal Kidneys: ?? normal Bladder: ?? normal sex: male Wants to know sex: ?? yes Biometry Standard BPD ?88.0 mm 35w 4d 55% Hadlock OFD ?106.1 mm ?35w 0d 35% Maeve HC 308.7 mm ?33w 4d 18% Chervenak AC 312.4 mm ?35w 1d 47% Hadlock Femur ??62.7 mm 32w 2d 4% Maeve Humerus ?55.7 mm 32w 3d 5% Maeve HC / AC ?0.99 EFW ?2,423 g ??22% Fountain EFW (lb) ?? 5 lb EFW (oz) ?? 5 oz EFW by: ?Hadlock (APN-JA-HA-FL) Extended Cad Detailer 7.9 mm Head / Face / Neck Cephalic index 0.83 ? 69% Nicolaides Extremities / Bony Struc FL / BPD ?? 0.71 FL / HC ?0.20 FL / AC ?0.20 Other Structures FHR ?124 bpm Biophysical Profile 2: breathing movements 2: Gross body movements 2: tone 2: Amniotic fluid volume NST: reactive 03/21 Biophysical profile score Interpretation: normal DVD number 3063, Duration: 15 minutes Growth Overview Exam date ??GA ??BPD [...] 38% 60.3 ?27% 51.1 ?3% ??1914 ?23% 01/20/2022 35w 4d ??88 ??55% 308.7 ?? 18% 312.4 ?? 47% 62.7 ?4% ??55.7 ?5% ??2423 ?22% Method ====== Transabdominal ultrasound examination, Voluson E10. View: Limited by advanced gestational age and by position Impression ========= 19397 Follow-up obstetrical ultrasound This is a paiz gestation. biometry is consistent with prior dating with EFW at the 22% Except where noted above, the anatomy was not reviewed in detail as this is a follow-up study and the anatomy was previously assessed. Normal fluid and movement are noted. 63991 Biophysical Profile (including NST) See BPP score above. Follow-up ======== Follow-up with weekly BPP's. DATE OF SERVICE: 01/20/2022 Procedure Note Beverly Gu MD - 01/20/2022 Indication ======== Maternal substance use. History FGR @ 25w6d <1% 12/06/13 EFW 14% @ 29w1d 12/30/21 EFW 23% @33w4d. History ====== General History Height 168 cm Height (ft) 5 ft Height (in) 6 in Previous Outcomes 2 Para 1 Pregnancies delivered at term (T) 1 Pregnancies delivered (P) 0 Abortions (A) 0 Living children (L) 1 ========= Number of fetuses: 1 Maternal Assessment Height 168 cm Height (ft) 5 ft Height (in) 6 in Physical Exam Initial weight 53 kg Initial weight (lb) 116 lb Initial BMI 18.72 kg/m?? Dating ====== LMP on: 05/12/2021 GA by LMP 36 w + 1 d MYCHAL by LMP : 02/16/2022 Previous Ultrasound on: 08/10/2021 Type of prior assessment: CRL U/S measurement at prior assessment date 56.3 mm GA by previous U/S 35 w + 4 d MYCHAL by previous Ultrasound: 02/20/2022 Ultrasound examination on: 01/20/2022 GA by U/S based upon: AC, BPD, Femur, HC GA by U/S 34 w + 1 d MYCHAL by U/S: 03/02/2022 Assigned: based on ultrasound (CRL), selected on 11/13/2021 Assigned GA 35 w + 4 d Assigned MYCHAL: 02/20/2022 General Evaluation Cardiac activity Present. FHR 124 bpm. movements: visualized.Presentation: cephalic, spine maternal left Placenta: anterior, right Umbilical cord: 3 vessel cord Amniotic fluid: Amount of AF: normal, normal. MVP 5.4 cm. CHAS 15.6 cm. Q14.5 cm, Q2 4.0 cm, Q3 5.4 cm, Q4 1.8 cm Anatomy Cranium: normal Lateral ventricles: normal Midline falx: normal Head / Neck Cranium: normal shape and size, normal shape and size 4-chamber view: normal Stomach: normal Kidneys: normal Bladder: normal sex: male Wants to know sex: yes Biometry Standard BPD 88.0 mm 35w 4d 55% Hadlock OFD 106.1 mm 35w 0d 35% Maeve HC 308.7 mm 33w 4d 18% Chervenak AC 312.4 mm 35w 1d 47% Hadlock Femur 62.7 mm 32w 2d 4% Maeve Humerus 55.7 mm 32w 3d 5% Maeve HC / AC 0.99 EFW 2,423 g 22% Fountain EFW (lb) 5 lb EFW (oz) 5 oz EFW by: Hadlock ([id number]-LH-TX-FL) Extended Cad Detailer 7.9 mm Head / Face / Neck Cephalic index 0.83 69% Nicolaides Extremities / Bony Struc FL / BPD 0.71 FL / HC 0.20 FL / AC 0.20 Other Structures FHR 124 bpm Biophysical Profile 2: breathing movements 2: Gross body movements 2: tone 2: Amniotic fluid volume NST: reactive 03/21 Biophysical profile score Interpretation: normal DVD number 3063, Duration: 15 minutes Growth Overview Exam date GA BPD (mm) HC (mm) AC (mm) FL (mm) HL (mm) EFW (g) 11/13/2021 25w 6d 52.9 <1% 214.8 4% 193.8 4% 40.5 2% 39.75% 607 <1% 12/06/2021 29w 1d 68.3 4% 255.1 12% 257.7 68% 50.5 6% 596791% 12/30/2021 32w 4d 81.7 50% 303.6 55% 281.6 38% 60.3 27% 51.13% 1914 23% 01/20/2022 35w 4d 88 55% 308.7 18% 312.4 47% 62.7 4% 55.7 5%2423 22% Method ====== Transabdominal ultrasound examination, Voluson E10. View: Limited byadvanced gestational age and by position Impression ========= 80219 Follow-up obstetrical ultrasound This is a paiz gestation. biometry is consistent with prior dating with EFW at the 22% Except where noted above, the anatomy was not reviewed in detail asthis is a follow-up study and the anatomy was previously assessed. Normal fluid and movement are noted. 83068 Biophysical Profile (including NST) See BPP score above. Follow-up ======== Follow-up with weekly BPP's. DATE OF SERVICE: 01/20/2022 us Kelly Pride MD MPH IMG US OB ORDERABLES F inal Result documented in this encounter Visit Diagnoses Diagnosis Poor growth affecting management of mother in third trimester, single or unspecified fetus documented in this encounter Care Teams Singe Winder Relationship Specialty Start Date End Date Martha Saavedra FNP [address] [facility],[address] [place] [address] PCP - General 02/01/17 09/15/22 documented as of this encounter
--- OUTSIDE RECORDS SUMMARY | 2024-07-06 18:49 | XMS_ITS | Encounter Summary ---
Author Organization [facility] Address [address] [place] [address] Care Team Providers Care Plate Glass Polisher Name Role Phone QuentinMartha [facility] Primary Care Provi devon Reason for Referral * SHAREPOINT DESIGNER DEVELOPER (Routine/Next Available) - Closed Specialty Diagnoses / Procedures Referred By Contac t Referred To Contact Diagnoses Poor growth affecting management of mother in third trimester, not applicable or unspecified fetus Procedures US OB FOLLOWUP Kelly Pride MD MPH Phone: tel: fax: [facility] Referral ID Status Reason Start Date Expiration Date Visits Re quested Visits Authorized [id number] Closed 12/19/2021 2 2 * SHAREPOINT DESIGNER DEVELOPER (Routine/Next Available) - Order Cancelled Specialty Diagnoses / Procedures Referred By Contac t Referred To Contact Diagnoses Poor growth affecting management of mother in third trimester, single or unspecified fetus Procedures US OB BIOPHYSICAL PROFILE WITH NON STRESS Skye Douglas MD Phone: tel: fax: [facility] Referral ID Status Reason Start Date Expiration Date V isits Requested Visits Authorized [id number] Order Cancelled 12/10/2021 15 15 Reason for Visit * SHAREPOINT DESIGNER DEVELOPER (Routine/Next Available) - Order Cancelled Specialty Diagnoses / Procedures Referred By Contac t Referred To Contact Diagnoses Poor growth affecting management of mother in third trimester, single or unspecified fetus Procedures US OB BIOPHYSICAL PROFILE WITH NON STRESS Skye Douglas MD Phone: tel: fax: [facility] Referral ID Status Reason Start Date Expiration Date V isits Requested Visits Authorized [id number] Order Cancelled 12/10/2021 15 15 Encounter Details Date Type Department Care Team (Latest Contact Info) Description 12/30/2021 14:44 EDT - 12/30/2021 23:59 EDT Hospital Encounter [facility] [place] [address] Poor growth affecting management of mother in [...] tablet Take 13.5 Tablets by mouth daily. doxylamine 25 mg tablet tablet Take 0.5 Tablets by mouth at bedtime. 30 Tablet 1 08/10/2021 2 ferrous gluconate (FERGON) 324 mg (38 mg iron) tablet Take 1 Tablet by mouth daily with breakfast for 90 days. 30 Tablet 2 12/10/2021 2 multivitamin vit-iron fumarate-FA (STUARTNATAL) 27 mg iron- 1 mg tablet tablet Take 1 Tablet by mouth daily for 90 days. 30 Tablet 2 12/09/2021 2 vit,horacio 74/iron/folic ( VITAMIN 1+1 ORAL) Take by mouth. 2 documented as of this encounter Discharge Disposition Disposition Code Departure Means Destination Home or Self Care documented in this encounter Plan of Treatment Pending Results Name Type Priority Associated Diagnoses Date /Time US OB BIOPHYSICAL PROFILE WITH NON STRESS Imaging Routine Poor growth affecting management of mother in third trimester, single or unspecified fetus 12/30/2021 16:01 EDT Scheduled Orders Name Type Priority Associated Diagnoses Orde r Schedule US OB BIOPHYSICAL PROFILE WITH NON STRESS Imaging Routine Poor growth affecting management of mother in third trimester, single or unspecified fetus 1 Occurrences starting 12/30/2021 until 12/30/2021 documented as of this encounter Procedures Procedure Name Priority Date/Time Associated Diagnosis Comments US OB FOLLOWUP Routine 12/30/2021 16:01 EDT Poor growth affecting management of mother in third trimester, not applicable or unspecified fetus documented in this encounter Results * US OB FOLLOWUP (12/30/2021 16:01 EDT) Anatomical Region Laterality Modality Pelvis Ultrasound 12/30/2021 15:0 7 EDT Narrative 12/30/2021 17:07 EDT Indication ======== growth restriction - Maternal substance use History ====== General History Height 168 cm [...] ====== LMP on: ?05/12/2021 GA by LMP ??33 w + 1 d MYCHAL by LMP : ? 02/16/2022 Previous Ultrasound on: ?08/10/2021 Type of prior assessment: ??CRL U/S measurement at prior assessment date ?? 56.3 mm MYCHAL by previous Ultrasound: ?02/20/2022 Ultrasound examination on: 12/30/2021 GA by U/S based upon: ??AC, BPD, Femur, HC GA by U/S ??32 w + 2 d MYCHAL by U/S: ?02/22/2022 Method of dating: ??Restore dating from previous exam Previous dating: ?? based on ultrasound (CRL), selected on 11/13/2021 Assigned GA of previous dating 32 w + 4 d Agreed MYCHAL of previous datin02/20/2022 Assigned: ??based on ultrasound (CRL), selected on 11/13/2021 Assigned GA ?32 w + 4 d Assigned MYCHAL: ??02/20/2022 General Evaluation Cardiac activity Present. FHR 128 bpm. movements: visualized. Presentation: cephalic Placenta: anterior Amniotic fluid: Amount of AF: normal. MVP 5.7 cm. CHAS 13.2 cm. Q1 2.6 cm, Q2 0.0 cm, Q3 4.9 cm, Q4 5.7 cm Anatomy Cranium: ?? normal Lateral ventricles: ?not adequately visualized Midline falx: ??normal Head / Neck Cranium: ?? normal shape and size 4-chamber view: ?normal Stomach: ?? normal Kidneys: ?? normal Bladder: ?? normal sex: male Wants to know sex: ?? yes Biometry Standard BPD ?81.7 mm 32w 6d 50% Hadlock OFD ?107.5 mm ?35w 4d 96% Maeve HC 303.6 mm ?32w 6d 55% Chervenak AC 281.6 mm ?32w 1d 38% Hadlock Femur ??60.3 mm 31w 2d 27% Maeve Humerus ?51.1 mm 29w 6d 3% Maeve HC / AC ?1.08 EFW ?1,914 g ??23% Fountain EFW (lb) ?? 4 lb EFW (oz) ?? 4 oz EFW by: ?Hadlock (HER-ST-FN-FL) Head / Face / Neck Cephalic index 0.76 ? 13% Nicolaides Extremities / Bony Struc FL / BPD ?? 0.74 FL / HC ?0.20 FL / AC ?0.21 Other Structures FHR ?128 bpm Biophysical Profile 0: breathing movements 2: Gross body movements 2: tone 2: Amniotic fluid volume NST: reactive 01/19 Biophysical profile score Interpretation: normal DVD number 3052, Duration: 30 minutes Growth Overview Exam date ??GA ??BPD [...] ?27% 51.1 ?3% ??1914 ?23% Method ====== Transabdominal ultrasound examination, Voluson E10. View: Limited by position Impression ========= 12654 Follow-up obstetrical ultrasound This is a paiz gestation. biometry is consistent with prior dating. Except where noted above, the anatomy was not reviewed in detail as this is a follow-up study and the anatomy was previously assessed. Normal fluid and movement are noted. 12278 Biophysical Profile (including NST) See BPP score above. Follow-up ======== growth restriction has resolved over last 2 scans. Follow up as clinically indicated. DATE OF SERVICE: 12/30/2021 Procedure Note Beverly Gu MD - 12/30/2021 Indication ======== growth restriction - Maternal substance use History ====== General History Height 168 cm [...] ====== LMP on: 05/12/2021 GA by LMP 33 w + 1 d MYCHAL by LMP : 02/16/2022 Previous Ultrasound on: 08/10/2021 Type of prior assessment: CRL U/S measurement at prior assessment date 56.3 mm MYCHAL by previous Ultrasound: 02/20/2022 Ultrasound examination on: 12/30/2021 GA by U/S based upon: AC, BPD, Femur, HC GA by U/S 32 w + 2 d MYCHAL by U/S: 02/22/2022 Method of dating: Restore dating from previous exam Previous dating: based on ultrasound (CRL), selected on 11/13/2021 Assigned GA of previous dating 32 w + 4 d Agreed MYCHAL of previous datin02/20/2022 Assigned: based on ultrasound (CRL), selected on 11/13/2021 Assigned GA 32 w + 4 d Assigned MYCHAL: 02/20/2022 General Evaluation Cardiac activity Present. FHR 128 bpm. movements: visualized.Presentation: cephalic Placenta: anterior Amniotic fluid: Amount of AF: normal. MVP 5.7 cm. CHAS 13.2 cm. Q1 2.6 cm,Q2 0.0 cm, Q3 4.9 cm, Q4 5.7 cm Anatomy Cranium: normal Lateral ventricles: not adequately visualized Midline falx: normal Head / Neck Cranium: normal shape and size 4-chamber view: normal Stomach: normal Kidneys: normal Bladder: normal sex: male Wants to know sex: yes Biometry Standard BPD 81.7 mm 32w 6d 50% Hadlock OFD 107.5 mm 35w 4d 96% Maeve HC 303.6 mm 32w 6d 55% Chervenak AC 281.6 mm 32w 1d 38% Hadlock Femur 60.3 mm 31w 2d 27% Maeve Humerus 51.1 mm 29w 6d 3% Maeve HC / AC 1.08 EFW 1,914 g 23% Fountain EFW (lb) 4 lb EFW (oz) 4 oz EFW by: Hadlock ([id number]-[id number]-FL) Head / Face / Neck Cephalic index 0.76 13% Nicolaides Extremities / Bony Struc FL / BPD 0.74 FL / HC 0.20 FL / AC 0.21 Other Structures FHR 128 bpm Biophysical Profile 0: breathing movements 2: Gross body movements 2: tone 2: Amniotic fluid volume NST: reactive 8/10 Biophysical profile score Interpretation: normal DVD number 3052, Duration: 30 minutes Growth Overview Exam date GA BPD (mm) HC (mm) AC (mm) FL (mm) HL (mm) EFW (g) 11/13/2021 25w 6d 52.9 <1% 214.8 4% 193.8 4% 40.5 2% 39.75% 607 <1% 12/06/2021 29w 1d 68.3 4% 255.1 12% 257.7 68% 50.5 6% 626027% 12/30/2021 32w 4d 81.7 50% 303.6 55% 281.6 38% 60.3 27% 51.13% 1914 23% Method ====== Transabdominal ultrasound examination, Voluson E10. View: Limited by fetalposition Impression ========= 91237 Follow-up obstetrical ultrasound This is a paiz gestation. biometry is consistent with prior dating. Except where noted above, the anatomy was not reviewed in detail asthis is a follow-up study and the anatomy was previously assessed. Normal fluid and movement are noted. 42738 Biophysical Profile (including NST) See BPP score above. Follow-up ======== growth restriction has resolved over last 2 scans. Follow up asclinically indicated. DATE OF SERVICE: 12/30/2021 us Kelly Pride MD MPH IMG US OB ORDERABLES F inal Result documented in this encounter Visit Diagnoses Diagnosis Poor growth affecting management of mother in third trimester, single or unspecified fetus documented in this encounter Care Teams Plate Glass Polisher Relationship Specialty Start Date End Date Martha Saavedra FNP [address] [facility],[address] [place] [address] PCP - General 02/01/17 09/15/22 documented as of this encounter
--- OUTSIDE RECORDS SUMMARY | 2024-07-06 18:49 | XMS_ITS | Encounter Summary ---
Author Organization [facility] Address [address] [place] [address] Care Team Providers Care Hand Funnel Coater Name Role Phone Nel Saavedranavi Schroeders [facility] Primary Care Provi devon Reason for Visit * Reason Onset Date Comments Patient Outreach 12/14/2021 Encounter Details Date Type Department Care Team (Late st Contact Info) Description 12/14/2021 Telephone [facility] [address], [place] [id number] Tammy Foreman [address] [facility] [address] [address] [place] [address] Patient Outreach Social History Tobacco Use Types [...] * Telephone Encounter - Tammy Foreman - 12/14/2021 1600 EDT Die Polisher called pt for f/u re ap mh care, as well as upon request from [facility] nurse who is helping pt with care coordination for on-going ap medical care. No ans, lm for pt to contact news writer. documented in this encounter Plan of Treatment Not on file documented as of this encounter Visit Diagnoses Not on filedocumented in this encounter Care Teams Hand Funnel Coater Relationship Specialty Start Date End Date Martha Saavedra FNP [address] [facility],[address] [place] [address] PCP - General 02/01/17 09/15/22 documented as of this encounter
--- OUTSIDE RECORDS SUMMARY | 2024-07-06 18:49 | XMS_ITS | Encounter Summary ---
Author Organization [facility] Address [address] [place] [address] Care Team Providers Care Ent Consultant Name Role Phone Martha Saavedra Noe Harjeet [facility] Primary Care Provi devon Encounter Details Date Type Department Care Team (Late st Contact Info) Description 12/09/2021 Orders Only [facility] OBGYN Services - Main [address] [address] Leida Dempsey, RN Supervision of high risk , antepartum (Primary Dx) Social History Tobacco Use Types [...] Kenzie Mcclure RN documented in this encounter Plan of Treatment Not on file documented as of this encounter Visit Diagnoses Diagnosis Supervision of high risk , antepartum- Primary documented in this encounter Care Teams Ent Consultant Relationship Specialty Start Date End Date Martha Saavedra FNP [address] [facility] [place] [address] PCP - General 02/01/17 09/15/22 documented as of this encounter
--- OUTSIDE RECORDS SUMMARY | 2024-07-06 18:49 | XMS_ITS | Encounter Summary ---
Author Organization [facility] Address [address] [place] [address] Care Team Providers Care Twisthand Name Role Phone Martha Saavedra Noe Harjeet [facility] Primary Care Provi devon Reason for Visit * Reason Comments Social Work Encounter Details Date Type Department Care Team (Late st Contact Info) Description 01/12/2022 Community Health Team [facility] OBGYN Services - [facility] [address] [place], [place] [id number] Jeannette Post Social History Tobacco Use Types [...] Date of Assessment Author No 11/16/2021 20:00 EDKenzie Kathleen RN * Because of a physical, mental, [...] encounter Progress Notes * Jeannette Post - 01/12/2022 1558 EDT Afternoon text from patient requesting a cab ride or gas card for tomorrow's appointment. SUZANNE has been supporting patient in registering for Medicaid cab rides. She reports she called Medicaid and they lost the info she gave them. SUZNANE offers support calling together. SUZANNE is unable to schedule a private cab this quickly and at this distance. SUZANNE emailed case management re: leaving a gas card at the info desk. If CM is unable to do that SUZANNE will drop one off at the info desk. SUZANNE texted the patient with the above info, and again offers support calling Medicaid and GMT regarding enrolling in Medicaid cabs for future appointments. .. [facility] Total Time: 10 minutes texting, 10 minute care coordination, 5 minutes charting Referral: n/a Follow up: ongoing Status: Active documented in this encounter Plan of Treatment Not on file documented as of this encounter Visit Diagnoses Not on filedocumented in this encounter Care Teams Twisthand Relationship Specialty Start Date End Date Martha Saavedra FNP [address] [facility] [place] [address] PCP - General 02/01/17 09/15/22 documented as of this encounter
--- OUTSIDE RECORDS SUMMARY | 2024-07-06 18:49 | XMS_ITS | Encounter Summary ---
Author Organization [facility] Address [address] [place] [address] Care Team Providers Care Scarifier Operator Name Role Phone Martha Saavedra [facility] Primary Care Provi devon Reason for Visit * Reason Comments Routine Visit +fm +ctx -lof -vb Encounter Details Date Type Department Care Team (Late st Contact Info) Description 02/10/2022 15:30 EDT Routine [facility] OBGYN Services - [address] [id number] [place] [id number] [place] [phone] [place]: 38w4d Social History Tobacco Use Types Packs/Day Years [...] have money to get more. Sometimes true 06/ Interpersonal Safety Answer Date Record ed Physically [...] Sign Reading Time Taken Comments Blood Pressure 124/74 02/10/2022 1526 EDT Pulse - - Temperature - - Respiratory Rate - - Oxygen Saturation - - Inhaled Oxygen Concentration - - Weight 71.9 kg (158 lb 9.6 oz) 02/10/2022 1526 E DT Height - - Body Mass Index 24.47 12/16/2021 1425 EDT documented in this encounter Functional Status [...] Date of Assessment Author No 11/16/2021 20:00 SHEILAT Kenzie Mcclure RN * Do you have difficulty dressing or bathing? (5 years old or older) Answer Date of Assessment Author No 11/16/2021 20:00 SHEILAT Kenzie Mcclure RN * Because of a [...] Answer Entry Date Author No 11/16/2021 20:00 EDKenzie Kathleen RN documented in this encounter Progress Notes * Rico Moe MD - 02/10/2022 1530 EDT Antepartum [facility]GS Clinic Note CC: Karin Dixon is a 26 y.o. @ 38w4d by 02/20/2022, by Ultrasound Subjective: Denies regular cx, LOF, VB. Good FM. Objective: Vitals: BP: 124/74 Weight : 71.9 kg (158 lb 9.6 oz) Fundal Height (cm): 33 cm Heart Rate: 135 Dilation: 1 Effacement (%): 90 Station: +1 Assessment/Plan: Karin Dixon is a 26 y.o. @ 38w4d by 02/20/2022, by Ultrasound Supervision of high risk , antepartum - Reviewed eIOL, pt desires to await spontaneous labor until 41+0 - Discussed candidacy for eIOL at 39 weeks and explained the induction list process, pt expressed understanding - UTD on PNC Episodic mood disorder (HCC-CMS) ([facility]) - Taking zoloft nightly Poor growth affecting management of mother in third trimester, not applicable or unspecified fetus - FH measuring low again today, however, vertex is at 1+ to 2+ station which may account for some decrease in FH Substance abuse (HCC-CMS) ([facility]) - Continue current dose of methadone RTC in 1 week if not delivered Discussed with Dr. Banks. Rico Moe MD Obstetrics and Gynecology, PGY-4 Pager #[phone] 02/13/22 13:08 * Trinh Banks MD - 02/10/2022 1530 EDT Attestation statement: I performed or was present during the mitchell or critical portions of the visit and participated in the management of the patient. I agree with the findings and plan of care documented in the resident's/fellow's note. documented in this encounter Miscellaneous Notes * Assessment & Plan Note - Rico Moe MD - 02/13/2022 1308 EDTAssociated Problem(s): Substance abuse ([facility]) - Continue current dose of methadone * Assessment & Plan Note - Rico Moe MD - 02/13/2022 1307 EDTAssociated Problem(s): Poor growth affecting management of mother in third trimester, not applicable or unspecified fetus (Resolved 06/08/2022) - FH measuring low again today, however, vertex is at 1+ to 2+ station which may account for some decrease in FH * Assessment & Plan Note - Rico Moe MD - 02/13/2022 1306 EDTAssociated Problem(s): Episodic mood disorder ([facility]) - Taking zoloft nightly * Assessment & Plan Note - Rico Moe MD - 02/13/2022 1305 EDTAssociated Problem(s): Supervision of high risk , antepartum (Resolved 06/08/2022) - Reviewed eIOL, pt desires to await spontaneous labor until 41+0 - Discussed candidacy for eIOL at 39 weeks and explained the induction list process, pt expressed understanding - UTD on PNC documented in this encounter Plan of Treatment Not on file documented as of this encounter Visit Diagnoses Diagnosis Supervision of high risk in first trimester- Primary Unspecified high-risk documented in this encounter Care Teams Scarifier Operator Relationship Specialty Start Date End Date Martha Saavedra FNP [address] [facility] [place] [address] PCP - General 02/01/17 09/15/22 documented as of this encounter
--- OUTSIDE RECORDS SUMMARY | 2024-07-06 18:49 | XMS_ITS | Encounter Summary ---
Author Organization [facility] Address [address] [place] [address] Care Team Providers Care Vp Research Name Role Phone Martha Saavedra Noe Harjeet [facility] Primary Care Provi devon Reason for Visit * Reason Comments Routine Visit 35+4 Encounter Details Date Type Department Care Team (Late st Contact Info) Description 01/20/2022 15:00 EDT Routine [facility] OBGYN Services - [address] [id number] Terry Douglas MD [address] [place] [phone] [place]: 35w4d Social History Tobacco Use Types Packs/Day Years [...] Sign Reading Time Taken Comments Blood Pressure 128/80 01/20/2022 1513 EDT Pulse - - Temperature - - Respiratory Rate - - Oxygen Saturation - - Inhaled Oxygen Concentration - - Weight 69.9 kg (154 lb) 01/20/2022 1513 EDT Height - - Body Mass Index 23.76 12/16/2021 1425 EDT documented in this encounter [...] Assessment Author No 11/16/2021 20:00 EDT Kenzie Mcclrue RN documented as of this encounter Mental Status * Because of a physical, mental, or emotional condition, do you have serious difficulty concentrating, remembering, or making decisions? (5 years old or older) Answer Entry Date Author No 11/16/2021 20:00 EDT Kenzie Mcclure RN documented in this encounter Progress Notes * Terry Ovalle MD - 01/20/2022 1500 EDT Antepartum COGS Clinic Note CC: Karin Dixon is a 26 y.o. @ 35w4d Subjective: Feeling well but anxiety is increasing. Partner had his court date and has to go to detention on Feb 11 so hoping for delivery before then. +BH. Denies contractions, LOF, VB. +FM. Denies RAMOS,visual changes, CP/SOB, RUQ pain. OUD: 75 mg BID, denies s/sx of withdrawal Depression/anxiety: Has continued to have anxiety, has not tried taking zoloft in the evening. Left lower extremity swell: still present and feeling tight/painful Contraception: has been on depo in past, feels she has been doing well at taking her medications, does not want IUD/nexplanon that is inserted into her body Objective: Vitals: BP: 128/80 Weight : 69.9 kg (154 lb) Movement: Present US after visit. Assessment/Plan: Karin Dixon is a 26 y.o. @ 35w4d presenting for routine visit. Substance abuse ([facility]) ([facility]) - stable dosing - no s/sx of withdrawal - G/C collected today - Desires to wait until L&D for remainder of lab draws Supervision of high risk , antepartum - GBS today - US and NST today - up to date on routine care - compression stocking for left lower extremity - considering POPs Chronic hepatitis C virus infection ([facility]) ([facility]) - Hep C on admission to L&D Poor growth affecting management of mother in third trimester, not applicable or unspecified fetus - growth today - discussed resolved FGR and no indication for early IOL Episodic mood disorder (HCC-CMS) ([facility]) - Trial of PM zoloft when able RTC 01/27/2022. Discussed with Dr. Pride. TERRY OVALLE MD 01/20/2022 15:39 Obstetrics & Gynecology, PGY-4 Pager [phone] Opiate Dependence Visit Chief Complaint: Opiate Dependence in Withdrawal Symptoms: none Used drugs in last 2 weeks? No Seen substance abuse counselor in past 2 weeks? Yes Counselor: sees Seen social media developer in past 4 weeks? Yes UDS: n/a If the patient does not have a substance abuse counselor, she must see the social media developer or have a nurse from our office arrange counseling through [place] or [facility] Assessment: Stable TERRY OVALLE MD * Kelly Pride MD MPH - 01/20/2022 1500 EDT Attestation statement: I discussed the patient with the resident/fellow at the time of the visit. Iagree with the findings and the plan of care documented in the resident's/fellow's note. documented in this encounter Miscellaneous Notes * Assessment & Plan Note - Terry Ovalle MD - 01/20/2022 1536 EDT Associated Problem(s): Episodic mood disorder (HCC-CMS) - Trial of PM zoloft when able * Assessment & Plan Note - Terry Ovalle MD - 01/20/2022 1535 EDT Associated Problem(s): Poor growth affecting management of mother in third trimester, not applicable or unspecified fetus (Resolved 06/08/2022) - growth today - discussed resolved FGR and no indication for early IOL * Assessment & Plan Note - Terry Ovalle MD - 01/20/2022 1535 EDT Associated Problem(s): Chronic hepatitis C virus infection (HCC-CMS) - Hep C on admission to L&D * Assessment & Plan Note - Terry Ovalle MD - 01/20/2022 1534 EDT Associated Problem(s): Supervision of high risk , antepartum (Resolved 06/08/2022) - GBS today - US and NST today - up to date on routine care - compression stocking for left lower extremity - considering POPs * Assessment & Plan Note - Terry Ovalle MD - 01/20/2022 1526 EDT Associated Problem(s): Substance abuse ([facility]) - stable dosing - no s/sx of withdrawal - G/C collected today - Desires to wait until L&D for remainder of lab draws documented in this encounter Plan of Treatment Not on file documented as of this encounter Procedures Procedure Name Priority Date/Time Associated Diagnosis Comments GROUP B STREP PCR Routine 01/20/2022 15: 35 EDT Supervision of high risk in third trimester CHLAMYDIA/N. GONORRHOEAE AMPLIFIED NUCLEIC ACID Routine 01/20/2022 15:35 EDT Supervision of high risk in third trimester documented in this encounter Results * CHLAMYDIA/N. GONORRHOEAE AMPLIFIED RNA (01/20/2022 15:35 EDT) Neisseria gonorrhoeae Result Negative Negative 01/21/2022 15:04 EDT [facility] Chlamydia trachomatis Result Negative Negative 01/21/2022 15:04 EDT [facility] Swab ENTIRE VAGINA / Unknown Swab / Unknown 01/20/2022 15:35 EDT 01/20/2022 21:41 EDT Kelly Pride MD MPH MICROBIOLOGY - GENERAL ORDERABLES Final Result [facility] [address] [place] [address] * GROUP B STREP PCR (01/20/2022 15:35 EDT) Group B Strep PCR Negative Negative 01/22/2022 14:55 EDT [facility] Swab POOLED SPECIMEN FROM VAGINAL INTROITUS AND RECTAL SWAB / Unknown Swab / Unknown 01/20/2022 15:35 EDT 01/20/2022 21:41 EDT Kelly Pride MD MPH MICROBIOLOGY - GENERAL ORDERABLES Final Result Performing Organization Address City/[facility]/ZIP Co de Phone Number [facility] [address] [place] [address] documented in this encounter Visit Diagnoses Diagnosis Supervision of high risk in third trimester- Primary Unspecified high-risk Supervision of high risk , antepartum Chronic hepatitis C without hepatic coma (HCC-CMS) Chronic hepatitis C without mention of hepatic coma Substance abuse (HCC-CMS) Other, mixed, or unspecified nondependent drug abuse, unspecified Poor growth affecting management of mother in third trimester, not applicable or unspecified fetus Episodic mood disorder (HCC-CMS) Unspecified episodic mood disorder documented in this encounter Care Teams Vp Research Relationship Specialty Start Date End Date Martha Saavedra FNP [address] [place], [place] [address] [place] [address] PCP - General 02/01/17 09/15/22 documented as of this encounter
--- OUTSIDE RECORDS SUMMARY | 2024-07-06 18:49 | XMS_ITS | Encounter Summary ---
Author Organization [facility] Address [address] [place] [address] Care Team Providers Care Agricultural Equipment Operator Name Role Phone Nel Saavedranavi Liu Cosby [facility] Primary Care Provi devon Reason for Visit * Reason Comments Non-stress Test Encounter Details Date Type Department Care Team (Late st Contact Info) Description 01/06/2022 14:00 EDT Office Visit [facility] Obstetrics & Midwifery - [facility] [address] [place] [address] Poor growth affecting management of mother in third trimester, not applicable or unspecified fetus (Primary Dx) Social History Tobacco Use Types [...] Sign Reading Time Taken Comments Blood Pressure 120/70 01/06/2022 1430 EDT Pulse - - Temperature - - [...] documented in this encounter Progress Notes * Beverly Gu MD - 01/06/2022 1400 EDT NST Report Baseline Heart Rate: 125 Accelerations: present Movement: present Decelerations: absent Contractions: absent Interpretation: Reactive Beverly Gu MD 01/06/2022 14:44 documented in this encounter Plan of Treatment Not on file documented as of this encounter Visit Diagnoses Diagnosis Poor growth affecting management of mother in third trimester, not applicable or unspecified fetus- Primary documented in this encounter Care Teams Agricultural Equipment Operator Relationship Specialty Start Date End Date Martha Saavedra FNP [address] [facility] [place] [address] PCP - General 02/01/17 09/15/22 documented as of this encounter
--- OUTSIDE RECORDS SUMMARY | 2024-07-06 18:49 | XMS_ITS | Encounter Summary ---
Author Organization [facility] Address [address] [place] [address] Care Team Providers Care Retort Cooler Name Role Phone Martha Saavedra [facility] Primary Care Provi devon Reason for Visit * Reason Comments Non-stress Test * (Routine/Next Available) - Receiving Office to Obtain Authorization Specialty Diagnoses / Procedures Referred By Ferny dubose Referred To Contact Diagnoses Poor growth affecting management of mother in second trimester, single or unspecified fetus Procedures NONSTRESS TEST Skye Douglas MD Phone: tel: fax: Referral ID Status Reason Start Date Expiration Date Visits Requested Visits Authorized [id number] Receiving Office to Obtain Authorization 12/09/2021 1 1 Encounter Details Date Type Department Care Team (Late st Contact Info) Description 12/30/2021 15:45 EDT Office Visit [facility] Obstetrics & Midwifery - [address] [address] Poor growth affecting management of mother in second trimester, single or unspecified fetus (Primary Dx) Social History [...] Sign Reading Time Taken Comments Blood Pressure 133/58 12/30/2021 1610 EDT Pulse - - Temperature - - [...] Progress Notes * Beverly Gu MD - 12/30/2021 1545 EDT NST Report Baseline Heart Rate: 120 Accelerations: present Movement: present Decelerations: absent Contractions: irregular Interpretation: Reactive over 40 min Beverly Gu MD 12/30/2021 17:08 documented in this encounter Plan of Treatment Not on file documented as of this encounter Visit Diagnoses Diagnosis Poor growth affecting management of mother in second trimester, single or unspecified fetus- Primary documented in this encounter Orders OB Count Last Ordered Date First Orde red Date NONSTRESS TEST 1 12/30/2021 documented in this encounter Care Teams Retort Cooler Relationship Specialty Start Date End Date Martha Saavedra FNP [address] [facility] [place] [address] PCP - General 02/01/17 09/15/22 documented as of this encounter
--- OUTSIDE RECORDS SUMMARY | 2024-07-06 18:49 | XMS_ITS | Encounter Summary ---
Author Organization [facility] Address [address] [place] [address] Care Team Providers Care Helmet Hat Sweatband Puncher Name Role Phone Martha Saavedra Noe Harjeet [facility] Primary Care Provi devon Reason for Visit * Reason Comments Routine Visit Encounter Details Date Type Department Care Team (Late st Contact Info) Description 02/03/2022 15:00 EDT Routine [facility] OBGYN Services - [facility] [address] [place] [address] Terry Douglas MD [address] [place] [phone] [place]: 37w4d Social History Tobacco Use Types Packs/Day Years [...] Sign Reading Time Taken Comments Blood Pressure 131/74 02/03/2022 1512 EDT Pulse - - Temperature - - Respiratory Rate - - Oxygen Saturation - - Inhaled Oxygen Concentration - - Weight 71 kg (156 lb 9.6 oz) 02/03/2022 1512 EDT Height - - Body Mass Index 24.17 12/16/2021 1425 EDT documented in this encounter [...] Progress Notes * Terry Ovalle MD - 02/03/2022 1500 EDT Antepartum COGS Clinic Note CC: Karin Dixon is a 26 y.o. @ 37w4d Subjective: Feeling tired, having daily cramping at night. Having some left sided buttock pain thatshoots down her leg. She is feeling excited and nervous. Denies contractions, LOF, VB. +FM. Denies RAMOS, visual changes, CP/SOB, RUQ pain. OUD: 75 mg BID, denies s/sx of withdrawal Depression/anxiety:??plans to start zoloft tonight and see if there are less side effects Left lower extremity swell: got her compression socks, will start using them Objective: Vitals: BP: 131/74 Weight : 71 kg (156 lb 9.6 oz) Heart Rate: 125 Movement: Present Assessment/Plan: Karin Dixon is a 26 y.o. @ 37w4d presenting for routine visit. Substance abuse ([facility]) ([facility]) - UDS collected today - no s/sx withdrawal - 75 mg BID Supervision of high risk , antepartum - Discussed GBS negative - up to date on care Episodic mood disorder ([facility]) ([facility]) - plans to start taking zoloft at night RTC [address] Banks. TERRY OVALLE MD 02/03/2022 15:42 Obstetrics & Gynecology, PGY-4 Pager [phone] MD Opiate Dependence Visit Chief Complaint: Opiate Dependence in Withdrawal Symptoms: none Used drugs in last 2 weeks? No Seen substance abuse counselor in past 2 weeks? Yes Counselor: yes Seen social science teacher in past 4 weeks? Yes UDS: collected If the patient does not have a substance abuse counselor, she must see the social science teacher or have a nurse from our office arrange counseling through [place] or [facility] Assessment: Stable TERRY OVALLE MD * Trinh Banks MD - 02/03/2022 1500 EDT Attestation statement: I performed or was present during the mitchell or critical portions of the visit and participated in the management of the patient. I agree with the findings and plan of care documented in the resident's/fellow's note. documented in this encounter Miscellaneous Notes * Assessment & Plan Note - Terry Ovalle MD - 02/03/2022 1542 EDT Associated Problem(s): Episodic mood disorder ([facility]) - plans to start taking zoloft at night * Assessment & Plan Note - Terry Ovalle MD - 02/03/2022 1542 EDT Associated Problem(s): Supervision of high risk , antepartum (Resolved 06/08/2022) - Discussed GBS negative - up to date on care * Assessment & Plan Note - Terry Ovalle MD - 02/03/2022 1541 EDT Associated Problem(s): Substance abuse ([facility]) - UDS collected today - no s/sx withdrawal - 75 mg BID * Result Encounter Note - Trinh Banks MD - 02/03/2022 1500 EDT Normal Result documented in this encounter Plan of Treatment Not on file documented as of this encounter Procedures Procedure Name Priority Date/Time Associated Diagnosis Comments POLYSUBSTANCE USE PANEL, URINE Routine 02/03/2022 16:11 EDT Substance abuse ([facility]) ([facility]) documented in this encounter Results * (ABNORMAL) POLYSUBSTANCE USE PANEL, URINE (02/03/2022 16:11 EDT) Buprenorphine Screen, Urine Negative <5- ng/mL 02/04/2022 11:39 T [facility] Oxycodone Screen, Urine Negative <100- ng/mL 02/04/2022 11:39 T [facility] Cotinine Screen, Urine Negative <500- ng/mL 02/04/2022 11:39 T [facility] Benzodiazepines Screen, Urine Negative <200- ng/mL 02/04/2022 11:39 EDT [facility] Amphetamines Screen, Urine Negative <1000- ng/mL 02/04/2022 11:39 [facility] Cocaine Metabolite Screen, Urine Negative <150- ng/mL 02/04/2022 11:39 [facility] THC Metabolites Screen, Urine Negative <50- ng/mL 02/04/2022 11:39 [facility] Barbiturates Screen, Urine Negative <200- ng/mL 02/04/2022 11:39 [facility] Opiates Screen, Urine Negative <300- ng/mL 02/04/2022 11:39 [facility] Fentanyl Screen, U Negative <1- ng/mL 02/04/2022 11:39 [facility] Alcohol Metabolite (EtG) Screen, Urine Negative <500- ng/mL 02/04/2022 11:39 [facility] Methadone Screen, Urine Positive(A) <300- ng/mL 02/04/2022 11:39 [facility] Urine URINE / Unknown Urine Collect / Unknown 02/03/2022 16:11 EDT 02/03/2022 16:31 EDT Narrative [facility] - 02/04/2022 11:39 EDT Testing performed by: [facility] [address] [place] [address], [address] [address] Line Server: Tommy Muñiz MD; CLIA # [id number] Trinh Banks MD GEN LAB UNIT COLLECT ORDERAB LES Final Result [facility] [address] [facility], [address] [place] [address], [facility] [phone] documented in this encounter Visit Diagnoses Diagnosis Substance abuse (HCC-CMS)- Primary Other, mixed, or unspecified nondependent drug abuse, unspecified Supervision of high risk , antepartum Episodic mood disorder (HCC-CMS) Unspecified episodic mood disorder documented in this encounter Care Teams Helmet Hat Sweatband Puncher Relationship Specialty Start Date End Date Martha Saavedra FNP [address] [facility] [place] [address] PCP - General 02/01/17 09/15/22 documented as of this encounter
--- OUTSIDE RECORDS SUMMARY | 2024-07-06 18:49 | XMS_ITS | Encounter Summary ---
Author Organization [facility] Address [address] [place] [address] Care Team Providers Care Excel Specialist Name Role Phone Martha Saavedra Noe Harjeet [facility] Primary Care Provi dveon Reason for Visit * Reason Onset Date Comments Contractions 02/11/2022 Encounter Details Date Type Department Care Team (Late st Contact Info) Description 02/11/2022 Telephone [facility] OBGYN Services - [facility] [address] [place], [place] [phone] Abeba Luna MD [address] [place] [phone] Contractions Social History Tobacco Use Types Packs/Day Years [...] encounter Miscellaneous Notes * Telephone Encounter - Abeba Luna MD - 02/11/2022 0040 EDT OB Telephone Note: Karin Dixon is an 26 y.o. now who called with regular contractions for 2 hours that are happening every 4-5 minutes, that have been getting more and more painful. Currently unable to talk through them. Has had increased discharge but doesn't think her water broke. Denies VB. Told patient to come in for a labor check. Patient states that she is leaving now and is 30 minutes away. Abeba Luna MD PGY-2 Obstetrics and Gynecology 02/11/2022 0:42 Pager: [phone] documented in this encounter Plan of Treatment Not on file documented as of this encounter Visit Diagnoses Not on filedocumented in this encounter Care Teams Excel Specialist Relationship Specialty Start Date End Date Martha Saavedra FNP [address] [facility] [place] [address] PCP - General 02/01/17 09/15/22 documented as of this encounter
--- OUTSIDE RECORDS SUMMARY | 2024-07-06 18:49 | XMS_ITS | Encounter Summary ---
Author Organization [facility] Address [address] [place] [address] Care Team Providers Care Ibm Bpm Architect Name Role Phone QuentniMartha [facility] Primary Care Provi devon Reason for Referral * Specialty Diagnoses / Procedures Referred By Contac t Referred To Contact Milan Gomez MD [address] [place] [address] Phone: tel: fax: Referral ID Status Reason Start Date Expiration Date Visits Re quested Visits Authorized Comments See your returned goods receiving clerk in 6 weeks. Please call for an appointment. Reason for Visit * Reason Comments Contractions * Auth/Cert Specialty Diagnoses / Procedures Referred By Contac t Referred To Contact Diagnoses Supervision of normal Referral ID Status Reason Start Date Expiration Date Visits Re quested Visits Authorized [id number] 1 1 Encounter Details Date Type Department Care Team (Late st Contact Info) Description 02/11/2022 1:39 EDT - 02/13/2022 13:[address] [facility] [address] [place], [place] [id number] Janie Wing MD [address] [facility] [address] [place] [address] Chronic hepatitis C without hepatic coma (HCC-CMS) (HCC) (Primary Dx); Encounter for supervision of normal , antepartum, unspecified Discharge Disposition: Home or Self Care Social [...] Sign Reading Time Taken Comments Blood Pressure 105/54 02/13/2022 0807 EDT Pulse - - Temperature 36.6 ??C (97.9 ??F) 02/13/2022 0807 EDT Respiratory Rate 18 02/13/2022 0807 EDT Oxygen Saturation 95% 02/13/2022 0807 EDT Inhaled Oxygen Concentration - - Weight 70.3 kg (155 lb) 02/11/2022 2300 EDT Height 170.2 cm (5' 7) 02/11/2022 2300 EDT Body Mass Index 24.28 02/11/2022 2300 EDT documented in this encounter Functional Status [...] Antonio RN documented in this encounter Discharge Summaries * Milan Gomez MD - 02/13/2022 0620 EDT Department of PARTS TECHNICIAN Maternal Discharge Summary Information for the patient's : Willem Dixon [[id number]] Willem Dixon Maternal Name: Karin Dixon : 1995 Attending: Janie Mejia MD Admission: 02/11/2022 Discharge: 02/13/2022 Reason for Admission: Spontaneous labor Principal/Final Diagnosis: Supervision of normal Delivery Indications: Maternal Indications for delivery: Labor Indication for delivery: Not applicable Principal Procedure: Spontaneous Vaginal Delivery Secondary Procedures: none Hospital Course: Karin Dixon is 26 y.o. now who was admitted at 38w5d in spontaneous labor. complicated by Opioid use disorder, stable on methadone, active hepatitis C, high risk social situation, Anxiety, resolved FGR. She was found to be dilated to 8cm and quickly progressed to complete. She started pushing. Fetus noted to be in [place] anterior position. She pushed over 2 contractions and delivered a vigorous male at 02:12 with Apgars of 8/9 weighing 2900g. Cord wasimmediately clamped and cut and was handed off to waiting pediatricians. IM pitocin administered. Placenta delivered intact over intact perineum with gentle cord traction. EBL: 250. Uterine tone was firm. Mother and baby recovered well on M7--> B7. The patient's course was uncomplicated. She had a single MR BP on PPD#2, with labs deferred as she was otherwise normotensive. She obtained good pain control, tolerated a regular diet, wasambulating and voiding independently. Her lochia was within normal limits and she initiated . The patient was subsequently discharged on PPD# 2 with instructions to follow-up for routinepostpartum care at 6 weeks. Hospital Problems: Active Hospital Problems Diagnosis Date Noted ??? *Supervision of normal 02/11/2022 Allergies: Flagyl [metronidazole] Medications during current : Medications Prior to Admission Medication Sig Dispense Refill Last Dose ??? ferrous gluconate (FERGON) 324 mg (38 mg iron) tablet Take 1 Tablet by mouth daily with breakfast for 90 days. 30 Tablet 2 ??? methadone (DOLOPHINE) 10 mg tablet Take 150 mg by mouth daily. ??? multivitamin vit-iron fumarate-FA (STUARTNATAL) 27 mg iron- 1 mg tablet tablet Take 1 Tablet by mouth daily for 90 days. 30 Tablet 2 ??? sertraline (ZOLOFT) 25 mg tablet Take 1 Tablet by mouth daily for 90 days. Take 1/2 tablet daily for 2 weeks, then increase 1 tab daily. (Patient not taking: Reported on 01/13/2022) 30 Tablet 2 LABOR INFORMATION Labor Onset: Spontaneous Labor Analgesia: None Amniotic Fluid Color: Clear Duration Rupture of Membranes: 0.00 hours 4.00 minutes DELIVERY INFORMATION Spontaneous Vaginal Delivery ; Delivery / Repair Anesthesia: None EBL: 250.00 Placenta: Method: Spontaneous Labor and Delivery Complications and/or Procedures: None INFORMATION Date: 02/11/2022 Time: 211 Weight: 2900 g (6 lb 6.3 oz) Sex: male Apgars: 8 9 Clinical Issues Needing Follow-up: Routine pp care OUD on methadone Chronic Hep C MR BP x1 Contraception Plan: Received depo provera prior to discharge Other: none Results Pending at Discharge: Test results still pending from this admission None Follow-up appointments and procedures You should follow up with your Park Worker Supervisor See your returned goods receiving clerk in 6 weeks. Please call for an appointment. Authorizing Provider: Milan Gomez MD Amb Consult/Follow Up Gastroenterology Reason for Request: chronic Hep C, desires treatment Expected Discharge Date (Inpatient Only): 02/13/2022 To the best of your knowledge, does this patient have known or suspected inflammatory bowel disease(Crohn's disease, ulerative colitis, indeterminate colitis)?: No To the best of your knowledge, does this patient have any of the following symptoms or other clinical findings? (check all that apply): None present Authorizing Provider: Milan Gomez MD Amb Consult/Follow Up Obstetrics Reason for Request: COGS 6 wk pp visit Expected Discharge Date (Inpatient Only): 02/13/2022 Authorizing Provider: Milan Gomez MD Condition at Discharge: stable Discharge Disposition: home MILAN GOMEZ MD 02/13/2022 6:21 Cosigned by Alcira Bowden MD at 02/13/2022 12:43 EDT documented in this encounter Medications at Time [...] 01/06/2022 2 documented as of this encounter Ordered Prescriptions Prescription Sig Dispense Quantity Refills Last Filled Start Date End Date ibuprofen (MOTRIN) 800 mg tablet Take 1 Tablet by mouth every 8 hours as needed for Pain. 60 Tablet 02/13/2022 3 polyethylene glycol 3350 (MIRALAX) 17 gram packet Take 17 g by mouth 2 times daily as needed for Other (constipation ). 02/13/2022 2 acetaminophen (TYLENOL) 500 mg tablet Take 2 Tablets by mouth every 8 hours as needed for Pain. 60 Tablet 02/13/2022 4 documented in this encounter Discharge Disposition Disposition Code Departure Means Destination Home or Self Snf documented in this encounter Progress Notes * Alcira Bowden MD - 02/13/2022 0215 EDT Progress Note CC: s/p precipitous term S: Tired but feeling well. Normal lochia. Tolerating a regular diet without nausea or vomiting. Passing flatus, no BM. with a nipple shield. Got depo yesterday, planning to figure it out in regards to her second shot. O: Temp: [36.4 ??C (97.5 ??F)-36.8 ??C (98.2 ??F)] 36.6 ??C (97.9 ??F) (02/12/22 2343) BP: (106-141)/(66-98) (!) 141/98 (02/12/22 1534) SpO2: [97 %-99 %] 99 % (02/12/22 1534) Resp: [16-18] 18 (02/12/22 2343) Heart Rate: [58 BPM-91 BPM] Gen: NAD Resp: Normal efforts CV: RR Abd: soft, non-distended, non-tender, fundus firm at 2 cm below umbilicus Ext: WWP, trace LE edema A/P: Karin Dixon is a 26 y.o. PPD#2 s/p at 38w5d. Patient recovering well, AVSS. Routine Care - Continue routine post-op/post- care. Continue current pain regimen. Encourage ambulation, PO intake, support . - Rh pos, Rubella imm, Varicella imm - Male infant, Desires circ OUD - Continue CHARTER COACH DRIVER methadone MR BP - Single MR BP, asymptomatic - Will get PEC serum labs if second MR BP - Continue with q4H vitals HCV - VL 73 900 - Desires treatment, referral to GI placed Anxiety - Continue CHARTER COACH DRIVER zoloft 25mg - High risk for pp depression, monitor closely - Reviewed signs/symptoms of pp depression Dispo - Contraception: s/p depo provera. Discussed setting a reminder on phone for next shot. - Likely d/c home today Milan Gomez MD PGY-3 Obstetrics and Gynecology Pager # [phone] 02/13/22 2:15 Attestation: I performed or was present during the mitchell or critical portions of the visit and participated in the management of the patient on 02/13/2022. I agree with the findings and plan of care documented in the resident's note. Doing well PPD 2, plan [place]. Has methadone take-homes so ok managing her own meds after d/c. F/u 6 wks for PPV, then either at [facility] or [facility] hardware design engineer for next depo dose in 12 wks. Consented for circ for male . Alcira Bowden MD 02/13/2022 10:38 * Rico Moe MD - 02/12/2022 4581 EDT Progress Note CC: s/p at 38w5d S: No issues per RN. Pt sleeping did not wake. O: Temp: [36.4 ??C (97.5 ??F)-37 ??C (98.6 ??F)] 36.4 ??C (97.5 ??F) (02/12/22217) BP: (109-137)/(67-71) 109/70 (02/12/22217) SpO2: [97 %-98 %] 97 % (02/12/22217) Resp: [16-18] 16 (02/12/22217) Heart Rate: [64 BPM-80 BPM] Intake/Output Summary (Last 24 hours) at 02/12/2022 0506 Last data filed at 02/11/2022 1400 Gross per 24 hour Intake -- Output 850 ml Net -850 ml Gen: NAD Resp: No increased work of breathing CV: RR Abd: deferred Ext: deferred A/P: Karin Dixon is a 26 y.o. PPD#1 s/p at 38w5d. Patient recovering well, AVSS. Routine Care - Continue routine post-op/post- care. Continue current pain regimen. Encourage ambulation, PO intake, support . - Rh pos, Rubella imm, Varicella imm - Male infant, will follow up on desire for circumcision OUD - Continue CHARTER COACH DRIVER methadone HCV - VL 73 900 Anxiety - Continue CHARTER COACH DRIVER zoloft 25mg Dispo - Contraception: Will discuss prior to discharge - depression: Will discuss prior to discharge - Likely d/c home PPD#2 Rico Moe MD Obstetrics and Gynecology, PGY-4 Pager #[phone] 02/12/22 5:06 Cosigned by Jeannette Wolfe MD at 02/12/2022 17:35 EDT Associated attestation - Jeannette Wolfe MD - 02/12/2022 2956 EDT I saw and examined the patient and reviewed her vitals and labs on 02/12/22. I agree with the findings and plan of care as documented in Dr Gunalp's note. 26 y.o. now on PPD#1 s/p . Recovering well and meeting appropriate milestones. Planning depo provera prior to discharge for contraception. Gets weekly dosing of methadone so has a few tabs for when she discharges tomorrow. Plans follow up closer to home in [place]. Jeannette Wolfe MD Obstetrics/Gynecology * Faviola Garcia, RN - 02/11/2022 1342 EDT Initial Case Management/Social Work Assessment and Discharge Plan/Readmission Risk Assessment REASON FOR ADMISSION: Supervision of normal Patient understands reason for admission: Yes PATIENT INFO VERIFIED: Contact Info, Address (pt to f/u with OB provider) LIVING ARRANGEMENTS AND ACCESSIBILITY ISSUES: Living Arrangements: Spouse / significant other (pt states she now has secure housing.) What in home social supports are available to the patient? Spouse / significant other, Family member(s) (pt states she feels well supported by SO and his mother.) Is 02/01 care available? NA ADVANCED DIRECTIVES, POA &/or COLST IN PLACE: DIRECTIVES FOR FINANCES: TRANSPORTATION: Transportation Additional Details: pt states she has an carseat and reliable transportation for d/c. Patient expects to be discharged to: pt to d/c to home CULTURAL, MANDAEN and/or LANGUAGE factors affecting health care/discharge planning: Insurance Information: Medical Insurance: Yes Type of insurance: Medicaid Medicaid Type: Community Referred to patient financial services: No Nutrition: DISCHARGE RISK ASSESSMENT: Total # selected above: Tentative plan to address the risk of re-hospitalization for those at HIGH MODERATE RISK: RAPT TOOL: Patient expects to be discharged to: pt to d/c to home SBIRT: FUNCTIONAL STATUS: COMMUNITY RESOURCES/SUPPORTS: Primary Care Provider: Martha Saavedra PCP Verified: Specialists: Other (MAT through [facility]) Type of Home Health Services: (pt declined a PP HH referral.) DME Provider: Pharmacy: [id number] - [place], [place] - [address] [facility] & [address] [address] Home Health: Other: WIC, [facility], [facility], DCF/CPS, Mental Health Services (pt to call and make a PP WIC appt. DCF briefcase sewer Miriam Eugenio in the [place] office) FAVIOLA GARCIA RN 02/11/2022 13:43 POST HOSPITAL TRANSITION PLAN: Pt to d/c to home when medically clear. Family has DCF worker Miriam Becker, who this underwriter spoke with today @ 2527 to inform briefcase sewer of delivery. Per briefcase sewer she will talk with her tank house supervisor and get back to CM/SW re: safe d/c plan. Pt enrolled in MAT and receives weekly take home doses through [facility]. Pt states she feels well supported and has help athome, she has declined a PP referral. Faviola Garcia ip architect [phone] Pager [phone] documented in this encounter H&P Notes * Abeba Luna MD - 02/11/2022 0212 EDT Department of Obstetrics History & Physical Admit Date: 02/11/2022 No chief complaint on file. HPI: Karin Dixon is a 26 y.o. at 38w5d by first trimester US who presented in spontaneouslabor Called with regular contractions x2 hours every 4-5 mins. Endorses increased mucous but no LOF, no VB, pos FM. c/b: - Opioid use disorder: On methadone 75mg BID split dosing. - Hep C, recent viral load of 73,900 - Anxiety: on Zoloft 25mg daily - resolved FGR. Review of Systems: neg except as in HPI Current Complications: Diabetes: None Hypertension: None Thrombosis/Embolism: None Hematologic disorders: None Thyroid disease: None Pulmonary disease: None Cardiac disease: None GI/Hepatic disorders: None Renal disease: None Autoimmune disorder/Connective tissue disease: None Substance abuse: Opioids - methadone Substance abuse treatment: Treatment started prepregnancy Infection during current : Hep C pos viral load Second or third trimester bleeding: None Abnormal placentation/cord: None Alloimmunization: None Testing: Genetic screening: NIPT Genetic procedures: None Dx requiring follow-up: None procedures: None procedures: None Selective reduction: None Medication Exposure: Significant medication exposure: None Labs: Rh pos/ Antibody screen neg / Rubella imm / Varicella imm / RPR neg / Gonorrhea neg / Chlamydia neg / Hepatitis B neg / Hepatitis C pos / HIV neg / 1hr GTT 91 / 3hr GTT na / GBS neg Ultrasound 35w4d: anterior placenta, CHAS: 15.6 EFW: 2423g 22%, AC: 47% 32w4d: EFW: 14%, AC: 12% 29w1d: EFW: 14% AC: 68% 25w6d: Anterior placenta, 3VC, Normal insertion EFW: <1%, AC: 4% anatomy wnl FOB History: No data recorded OB History Para Term AB Living 2 1 1 1 SAB TAB Ectopic Multiple Live Births 1 # Outcome Date GA Lbr Joseph/2nd Weight Sex Delivery Anes PTL Lv 2 Current 1 Term 06/06/16 3260 g (7 lb 3 oz) Vag-Spont GALILEO Comments: Adopted out, open adoption Previous Complications: No data recorded Past Medical History Past Surgical History Past Medical History: Diagnosis Date ??? Anemia ??? Depression ??? Hepatitis ??? Trauma Past Surgical History: Procedure Laterality Date ??? WISDOM TOOTH EXTRACTION Past Gynecological History Social History NILM 2019 Social History Tobacco Use ??? Smoking status: Never Smoker ??? Smokeless tobacco: Never Used Substance Use Topics ??? Alcohol use: Not Currently Comment: sporadic in past reports current drug use. Drugs: Methadone and Heroin. Medications Allergies Medications Prior to Admission Medication Sig Dispense Refill Last Dose ??? ferrous gluconate (FERGON) 324 mg (38 mg iron) tablet Take 1 Tablet by mouth daily with breakfast for 90 days. 30 Tablet 2 ??? methadone (DOLOPHINE) 10 mg tablet Take 150 mg by mouth daily. ??? multivitamin vit-iron fumarate-FA (STUARTNATAL) 27 mg iron- 1 mg tablet tablet Take 1 Tablet by mouth daily for 90 days. 30 Tablet 2 ??? sertraline (ZOLOFT) 25 mg tablet Take 1 Tablet by mouth daily for 90 days. Take 1/2 tablet daily for 2 weeks, then increase 1 tab daily. (Patient not taking: Reported on 01/13/2022) 30 Tablet 2 Allergies Allergen Reactions ??? Flagyl [Metronidazole] Objective: No data found. General: uncomfortably celine Respiratory: comfortable on room air Abdomen: gravid Extremities: WWP, no edema FHT: 120 baseline. mod variability, pos accels, neg decels; Cat 1 tracing. TOCO: q2 mins SVE: 8/100/0 on arrival Assessment/Problems/Plan: Karin Dixon is a 26 y.o. at 38w5d by first trimester US presenting in spontaneous labor. She was 8 cm dilated and in spontaneous labor. Labor: - Admit, IV, CBC, T&S, - Expectant management. Opiate use disorder: - Stable on methadone -75mg BID Depression/anxiety: - Continue CHARTER COACH DRIVER zoloft. Chronic HepC: - GI referral FWB: -Cat 1 tracing -Peds at delivery Global Rh pos GBS neg Imms: recommend HepB Discussed with Dr. Mejia. ABEBA LUNA MD 02/11/2022 2:35 Cosigned by Janie Mejia MD at 02/11/2022 4:29 EDT Associated attestation - Janie Wing MD - 02/11/2022 0429 EDT Attestation: I performed or was present during the mitchell or critical portions of the visit and participated in the management of the patient on 02/11/2022. I agree with the findings and plan of care documented in the resident's/fellow's note. Janie Mejia MD 02/11/2022 4:28 documented in this encounter Miscellaneous Notes * Plan of Care - Nancy Simeon RN - 02/13/2022 1330 EDT Problem: Daily Care Plan Goals Goal: Care Plan Documentation Outcome: Completed Flowsheets (Taken 02/13/2022 0807) Area of Focus: Discharge Plan Goal This Shift: D/C to board[place] status today Note: D: Stable PP pt. discharged to home/self care boarder status. A: Demonstrated/assisted patient to obtain/watch discharge videos via [employer]. certificate and parentage form completed/collected. Offered home health referral. Patient given opportunity to ask questions. R: Pt verbalized/demonstrated understanding of teaching, has completed the d/c videos. Pt home health referral Declined. Patient/Family questions answered and AVS signed/collected. Problem: High Fall Risk: Goal: Patient will Remain Free of Falls due to Med. Side Effects Outcome: Completed Problem: High Fall Risk: Goal: Patient Will Remain Free from Fall-Related Injury Outcome: Completed Problem: Safety: Goal: Will remain free from falls Outcome: Completed Goal: Will remain free from infection Outcome: Completed Problem: Pain: Goal: Pain level will decrease Outcome: Completed Problem: Infection: Goal: Signs and symptoms of infection will decrease Outcome: Completed Problem: Nutritional: Goal: Ability to attain and maintain optimal nutritional status will improve Outcome: Completed Goal: Mother's verbalization of satisfaction/ comfort with will improve Outcome: Completed Problem: Activity: Goal: Ability to tolerate increased activity will improve Outcome: Completed Problem: Lifecycle: : Goal: Chance of risk for complications during the period will decrease Outcome: Completed Problem: Coping: Goal: Patient's and family's ability to cope will improve Outcome: Completed Goal: Level of anxiety will decrease Outcome: Completed Problem: Role Relationship: Goal: Ability to interact appropriately with will improve Outcome: Completed Goal: Ability to demonstrate an understanding of parental responsibilities will improve Outcome: Completed Goal: Identification of resources available to assist in meeting health care needs will improve Outcome: Completed Goal: Ability to identify and utilize available resources and services will improve Outcome: Completed * Note - Darren Mccracken - 02/13/2022 0822 EDT Images from the original note were not included. [facility] Consult Initial Consult Consult Requested By: Order Reason for Consult: Difficult latch/non-sustained latch and Maternal substance use/baby on BRAYAN Subjective: Desarea states she would rather wait until baby wakes up to feed. States her nipples are sore and her breasts are sore. States she would like to also pump and bottle feed as a part of her plan Objective: Date of : 02/11/2022 Time of [...] Results Component Value Date HCT 35.3 02/11/2022 Infant Lab: Lab Results Component Value Date TCB 8.8 02/12/2022 No results found for: TBIL No results found for: CRP History: Has 6 year old at home. Unable to breastfeed. Was 20 yo and states I didn't know what I was doing Social History: Lives with Zeb in [place], [place] ([place]) This baby is [place] Medical History: Maternal Medical History: psychiatric: anxiety, depression, IPV (not currently) and Hepatitis C with positive viral load Current Maternal Medications: acetaminophen (TYLENOL) tablet 1,000 mg, oral, Q8H PRN calcium carbonate (TUMS) 200 mg calcium (500 mg) per chewable tablet tablet,chewable 2 Tablet, oral, Q2H PRN ibuprofen (MOTRIN) tablet 800 mg, oral, Q8H PRN lanolin HPA (LANSINOH) cream, topical, PRN methadone (DOLOPHINE) concentrated solution 75 mg, oral, 2 times per day multivitamin vit-iron fumarate-FA (STUARTNATAL) 27 mg iron- 1 mg tablet 1 Tablet, oral, DAILY polyethylene glycol 3350 (MIRALAX) packet 17 g, oral, BID PRN senna (SENOKOT) tablet 2 Tablet, oral, QHS sodium chloride 0.9 % (flush) flush 5 mL, intravenous, Q8H Maternal Anatomy: no abnormalities noted Pertinent Infant History: brow presentation of mother with OUD Current Medications: Information for the patient's : Willem Dixon [[id number]] Breast Milk Identification, oral, PRN lidocaine (PF) 10 mg/mL (1 %) injection 1 mL, subcutaneous, PRN sucrose 24% (TOOTSWEET) solution 0.3 mL, oral, PRN Anatomy: trauma and facial bruising Infants Current Weight: Information for the patient's : Willem Dioxn [[id number]] 2720 g (5 lb 15.9 oz) Change from Weight: Information for the patient's : Willem Dixon [[id number]] -6% Weight Trends Weight: 2900 g (6 [...] 0-2 years) data 24 hour I/O: BF: 7-8x Void: 6x Stool: 3x Information for the patient's : Willem Dixon [[id number]] Output for the past 24 hrs: Urine Occurrence Urine Description Stool Occurrence Stool Description 02/13/22 0815 1 Medium -- -- 02/12/22 2155 1 Large 1 Transitional green;Large 02/12/22 2115 1 Large 1 Transitional green;Large 02/12/22 1826 1 Medium 1 Small 02/12/22 1210 2 Medium -- -- Observation: Introduced self/role Offered to assist mom with BF. She declined. States she is too tired, and it isn't time States has sore nipples Has been 2.5 hours since last feed. Discussed the no longer than 3 hours between starts of feeds rule Would like a pump dispensed Reviewed resources in her area Patient Education:Prevention/treatment of engorgement, Community resources for and Typical pattern of night and cluster feeding Also, discussed: safe sleep and differences in available breast pumps Assessment: Feeding efficiency: latch not witnessed Weight loss/gain: within expectations - 6% loss on day 2 Oral assessment: not assessed Additional infant concerns: none Mother Maternal milk supply: not [...] mom's request Highly recommend IBCLC visit with [facility] for Handouts given: Guide to feeding [...] inpatient Outpatient Follow Up: recommended to see [facility] for . Also given information on other in home LCs that go to [place]: Karissa Henderson IBCLC and Andreina Brar IBCLC. DARREN MCCRACKEN RN MSN IBCLC 02/13/2022 8:36 * Plan of Care - Nancy Simeon RN - 02/12/2022 7115 EDT Problem: Nutritional: Goal: Mother's verbalization of satisfaction/ comfort with will improve Outcome: Met This Shift Problem: Activity: Goal: Ability to tolerate increased activity will improve Outcome: Met This Shift Problem: Lifecycle: : Goal: Chance of risk for complications during the period will decrease Outcome: Met This Shift Problem: Daily Care Plan Goals Goal: Care Plan Documentation Outcome: Not Met This Shift Flowsheets (Taken 02/12/2022 5887) Area of Focus: Discharge Plan Goal This Shift: complete certificate paperwork . Data: Ms. Karin Dixon is a 26 y.o PPD#1 at 38w5 via . was complicated by opioiduse disorder on methadone, active Hepatitis C, high risk social situation, anxiety and resolved FGR. Pt is NB. DCF is involved. ?? Action: VS and assessment performed. Pain managed with tylenol and ibuprofen. Pt care clustered to promote pt rest. ?? Response: VS and assessment stable. Fundus firm, midline at U-2 with small/scant bleeding. Pt had one quarter sized clot this shift, fundal assessment was stable with no additional clots or tricklingafter the clot was passed. Pt denies all symptoms of preeclampsia. Pain well managed. Pt voiding well and passing gas. Pt had lots of visitors this shift and was unable to complete certificate worksheet. Will complete prior to discharge * Plan of Care - Maribeth Altamirano RN - 02/12/2022 0412 EDT Problem: Daily Care Plan Goals Goal: Care Plan Documentation Outcome: Ongoing Flowsheets (Taken 02/11/2022 1935) Area of Focus: Pain/ Comfort Goal This Shift: Manage pain and promote rest. Problem: Safety: Goal: Will remain free from falls Outcome: Ongoing Goal: Will remain free from infection Outcome: Ongoing Problem: Pain: Goal: Pain level will decrease Outcome: Ongoing Problem: Nutritional: Goal: Ability to attain and maintain optimal nutritional status will improve Outcome: Ongoing Goal: Mother's verbalization of satisfaction/ comfort with will improve Outcome: Ongoing Problem: Lifecycle: : Goal: Chance of risk for complications during the period will decrease Outcome: Ongoing Problem: Role Relationship: Goal: Ability to interact appropriately with will improve Outcome: Ongoing Goal: Ability to demonstrate an understanding of parental responsibilities will improve Outcome: Ongoing Data: Day 1 at 0212. Pt has hx of OUD (methadone), depression, anemia, trauma and hepatitis C. Pt is NB. DCF is involved. Action: VS and assessment performed. Pain managed with tylenol, ibuprofen, and ice packs. Pt care clustered to promote pt rest. Response: VS and assessment stable. Fundus firm, midline at U-2 with small/scant bleeding. Pt had one medium size clot this shift, fundal assessment was stable with no additional clots or trickling after the clot was passed. Charge nurse informed. Pt denies all symptoms of preeclampsia. Pain well managed with pharmacological and non-pharmacological pain management. Pt voiding well and passing gas. Pt able to achieve a few hours of rest between clustered care. MARIBETH ALTAMIRANO RN 02/12/2022 4:12 * L&D Delivery Note - Abeba Luna MD - 02/11/2022 0317 EDT Delivery Information Karin Dixon is a 26 y.o. at 38w5d delivered by Spontaneous Vaginal Delivery . BBKarin Dixon [phone] at Gestational Age: 38w5d, Delivered by Spontaneous Vaginal Delivery , Weighed 2900 g (6 lb 6.3 oz), 8 /9 , Sent to With parent nursery after delivery. Maternal: Delivery Plan Outcome Planned home ? Not planned External cephalic version attempt indicated? Not indicated Delivery as waterbirth? No JOSE after : Not applicable Delivery Indications Maternal Indications for delivery/comments: Labor Indications for delivery/comments: Not applicable Intrapartum Medication Intrapartum preeclampsia: No Intrapartum Mg: No Intrapartum Mg Indication: N/A Labor Labor onset: Spontaneous Cervical ripening/induction agent: N/A Labor augmentation: None Augmentation indication/comments: N/A Sepsis Risk Scores (based on CDC incidence of 0.10/999 live births) Calculated Risk at Score: Adjusted Score (Well Appearing): Adjusted Score (Equivocal): Adjusted Score (Clinical Illness): Sepsis Risk Factors used in score calculation Gestational Age: w, d Mother's max temp within 12 hours prior to delivery: Length of Rupture of Membranes: Hours Maternal GBS Status: Intrapartum Antibiotics: Other Intrapartum Infection Factors PROM >= 18 Hours: N/A Maternal Fever >= 38 C: N/A Maternal Tachycardia > 100 bpm: N/A Tachycardia > 160 bpm: N/A Uterine Tenderness: N/A Foul Odor of Amniotic Fluid: N/A Intra-Amniotic Infection N/A HIV Status/Treatment: Not indicated Hepatitus B Surface Antigen: Negative Syphilis: Negative Assessment monitoring: Contiunous - External heart rate characteristics/comments: Cat 1 demise: N/A Anesthesia Labor analgesia: None Delivery anesthesia: None Adjunctive analgesia: None Anesthetic complications: None Additional comments: Maternal Delivery Delivery type: Spontaneous Vaginal Delivery Presentation: Vertex Position: indication: Forceps Attempted: No Vacuum Attempted: No Operative Vaginal Delivery Indication: N/A Station - Initial Application: N/A Details of Shoulder Dystocia (if applicable) Dystocia Present? No Maneuvers Performed (if applicable) Placenta Delivered: 02/11/2022 2:16 Delivery method: Spontaneous Morphology: Normal Disposition: Refrigerator Cord Details Vessels: 3 Vessels Complications: None Nuchal intervention: Nuchal cord description: Cord around: Number of loops: Gases Sent? No Cord Blood Sent: Stem cell collection (by MD)? No Comments: Lacerations/Episiotomy Laceration Repaired? Perineal: None Periurethral: Labial: Sulcus: Vaginal: Cervical: Episiotomy: None Indication: Repair suture: None Procedures Additional Procedures: None Hemorrhage (if applicable) hemorrhage: None Blood Loss Mother: Karin Dixon #[id number] Start of Mother's Information Delivery Blood Loss 02/10/22 1412 - 02/11/22 0317 [facility] Hospital Encounter 250 mL Total 250 mL End of Mother's Information Mother: Karin Dixon #[id number] Uterotonics/PPH Procedures: Uterine massage, Oxytocin, Blood Products Transfused: (if applicable) Labor Length Duration of 1st Stage: hours minutes Duration of 2nd Stage: hours minutes Duration of 3rd Stage: 0 hours 4 minutes Duration of Cord Clamp Delay: 60 seconds Precipitous Labor (<3 hours): Yes Prolonged Labor (>20 hours): No [place]: Date of : 02/11/2022 Time of : 021 Sex: male Weight (grams): 2900 g (6 lb 6.3 oz) Length (in): Head circumference (in): Observed anomalies, comments: Meconium Present at Delivery: No (<37 wks): No Late (34-37 wks): No Steroid Course: Indication: N/A PPROM Gestational Age: N/A APGARS Totals: 8 /9 /-/-/- Resuscitation Resuscitation: Suctioning Delivery Personnel Delivering Clinician: JANIE MEJIA Additional Personnel: ABEBA LUNA;MARIE ORANTES;PAVEL LAZO Duration: rupture date or rupture time have not been documented Induction Duration (if applicable): Labor and Delivery comments: Karin Dixon is 26 y.o. now who was admitted at 38w5d in spontaneous labor. complicated by Opioid use disorder, stable on methadone, active hepatitis C, high risk social situation, Anxiety, resolved FGR. She was found to be dilated to 8cm and quickly progressed to complete. She started pushing. Fetus noted to be in Mentum anterior position. She pushed over 2 contractions and delivered a vigorous male infant at 02:12 with Apgars of 8/9 weighing 2900g. Cord was immediately clamped and cut and was handed off to waiting pediatricians. IM pitocin administered. Placenta delivered intact over intact perineum with gentle cord traction. EBL: 250. Uterine tone was firm. Mother and baby recovered well on M7--> B7. Dr. Mejia was present for the entire delivery. Abeba Luna MD PGY-2 Obstetrics and Gynecology 02/11/2022 3:52 Pager: [phone] Cosigned by Janie Mejia MD at 02/11/2022 4:34 EDT Associated attestation - Janie Wing MD - 02/11/2022 0434 EDT I was present for the entire and I agree with the resident'/fellow's note. Briefly Ms. Karin Dixon is a 26 y.o at 38w5. was complicated by opioid use disorder on methadone, active Hepatitis C, high risk social situation, anxiety and resolved FGR. She entered SIMONA and was completed. After spontaneous rupture she was found to be in the mentum anterior face position. With perineal support and gentle rotation, head was delivered over 2 contractions over an intact perineum. Umbilical cord was cut and clamped and was sent to pediatric providers in attendance of . Placenta was delivered intact with a 3 vessel cord after gentle traction. EBL was 250 cc. Mother and baby were taken to recovering room in stable condition. Janie Mejia MD 02/11/2022 4:30 documented in this encounter Plan of Treatment Scheduled Referrals Name Type Priority Associated Diagnoses Order Schedule PROVIDER FOLLOW-UP INSTRUCTIONS Outpatient Referral Routine/Next Available Ordered: 02/13/2022 documented as of this encounter Procedures Procedure Name Priority Date/Time Associated Diagnosis Comments COMPLETE BLOOD COUNT STAT 02/11/2022 6:04 EDT ZZCOVID-19 TEST [facility] PCR Today 02/11/2022 3:11 EDT COVID-19 TESTING Routine 02/11/2022 3:11 EDT HOLD SST STAT 02/11/2022 3:02 EDT HOLD BLUE TOP STAT 02/11/2022 3:02 EDT COMPLETE BLOOD COUNT STAT 02/11/2022 3:02 EDT TYPE AND SCREEN STAT 02/11/2022 3:02 EDT documented in this encounter Results * (ABNORMAL) COMPLETE BLOOD COUNT (02/11/2022 6:04 EDT) [facility] WBC 12.43(H) 4.00 - 12.40 K/cmm 02/11/2022 6:26 EDT [facility] RBC 3.93 3.86 - 5.04 M/cmm 02/11/2022 6:26 EDT [facility] Hemoglobin 12.5 11.6 - 15.2 gm/dL 02/11/2022 6:26 [facility] HCT 35.3 34.9 - 44.4 % 02/11/2022 6:26 [facility] MCV 90 81 - 98 fl 02/11/2022 6:26 [facility] MCH 31.8 26.7 - 33.3 pg 02/11/2022 6:26 [facility] MCHC 35.4 32.1 - 35.9 gm/dL 02/11/2022 6:26 EDT [facility] RDW-CV 13.3 <14.7 % 02/11/2022 6:26 EDT [facility] RDW-SD 43.9 <50.4 fl 02/11/2022 6:26 EDT [facility] PLT 247 141 - 377 K/cmm 02/11/2022 6:26 EDT [facility] MPV 10.2 9.5 - 12.7 fl 02/11/2022 6:26 EDT [facility] Blood VENOUS BLOOD / Unknown Venipuncture / Unknown 02/11/2022 6:04 EDT 02/11/2022 6:09 EDT Abeba Luna MD HEMATOLOGY & PF4 ORDERABLES Chloe l Result Performing Organization Address [facility] Co de Phone Number [facility] [address] [place] [address] * COVID-19 TEST [facility] PCR (02/11/2022 3:11 EDT) Swab BOTH ANTERIOR NARES / Unknown Swab / Unknown 02/11/2022 3:11 EDT 02/11/2022 3:59 EDT Abeba Luna MD MICROBIOLOGY - GENERAL ORDERABLE S Final Result Performing Organization Address [facility] Co de Phone Number [facility] [address] [place] [address] * COVID-19 TESTING (02/11/2022 3:11 EDT) COVID-19 rt-PCR Result Negative Negative 02/11/2022 6:00 EDT [facility] Comment: This test has not been FDA cleared or approved. This test has been authorized by FDA under an EUA for use by authorized laboratories. This test has been authorized only for detection of nucleic acid from 2019-, not for any other viruses or pathogens. This test is only authorized for the duration of the declaration that circumstances exist justifying the authorization of emergency use of in vitro diagnostic tests for detection and/or diagnosis of 2019-nCoV under section 564(b)(1) of Act, 21 U.S.C ?? 360bbb-3(b) (1), unless the authorization is terminated or revoked sooner. Negative results do not preclude 2019-nCoV infection and should not be used as the sole basis for treatment or other patient management decisions. Negative results must be combined with clinical observations, patient history, and epidemiological information. Performed on the [employer] GeneXpert Instrument Performing Lab GeneXpert [facility] 02/11/2022 6:00 EDT [facility] Swab BOTH ANTERIOR NARES / Unknown Swab / Unknown 02/11/2022 3:11 EDT 02/11/2022 3:59 EDT us Abeba Luna MD MICROBIOLOGY - GENERAL ORDERABLE S Final Result Performing Organization Address [facility]/ZIP Co de Phone Number [facility] [address] [place] [address] * TYPE AND SCREEN (02/11/2022 3:02 EDT) ABO A 02/11/2022 4:00 EDT [facility] Rh Factor Positive 02/11/2022 4:00 EDT [facility] Antibody Screen Negative 02/11/2022 4:00 EDT [facility] Specimen Expires: 02/14/2022 @ 23:59 02/11/2022 4:00 EDT [facility] Blood VENOUS BLOOD / Unknown Venipuncture / Unknown 02/11/2022 3:02 EDT 02/11/2022 3:24 EDT us Janie Wing MD BLOOD BANK TESTS Edited Result - Final Performing Organization Address [facility]/ZIP Co de Phone Number [facility] [address] [place] [address] * (ABNORMAL) COMPLETE BLOOD COUNT (02/11/2022 3:02 EDT) WBC 13.11(H) 4.00 - 12.40 K/cmm 02/11/2022 3:19 [facility] RBC 4.54 3.86 - 5.04 M/cmm 02/11/2022 3:19 [facility] Hemoglobin 14.2 11.6 - 15.2 gm/dL 02/11/2022 3:19 [facility] HCT 41.4 34.9 - 44.4 % 02/11/2022 3:19 [facility] MCV 91 81 - 98 fl 02/11/2022 3:19 [facility] MCH 31.3 26.7 - 33.3 pg 02/11/2022 3:19 [facility] MCHC 34.3 32.1 - 35.9 gm/dL 02/11/2022 3:19 [facility] RDW-CV 13.4 <14.7 % 02/11/2022 3:19 [facility] RDW-SD 44.8 <50.4 fl 02/11/2022 3:19 [facility] PLT 263 141 - 377 K/cmm 02/11/2022 3:19 [facility] MPV 10.2 9.5 - 12.7 fl 02/11/2022 3:19 [facility] Blood VENOUS BLOOD / Unknown Venipuncture / Unknown 02/11/2022 3:02 EDT 02/11/2022 3:07 EDT us Janie Wing MD HEMATOLOGY & PF4 ORDERABLES Fi nal Result [facility] [address] [place] [address] * HOLD BLUE TOP (02/11/2022 3:02 EDT) Hold Hold 02/11/2022 4:15 [facility] Blood VENOUS BLOOD / Unknown Venipuncture / Unknown 02/11/2022 3:02 EDT 02/11/2022 3:07 EDT us Janie Wing MD LAB INFO SERVICE AND SUPPORT & PHONE RESULT Final Result [facility] [address] [place] [address] * HOLD SST (02/11/2022 3:02 EDT) Hold Hold 02/11/2022 4:15 EDT [facility] Blood VENOUS BLOOD / Unknown Venipuncture / Unknown 02/11/2022 3:02 EDT 02/11/2022 3:07 EDT us Janie Wing MD LAB INFO SERVICE AND SUPPORT & PHONE RESULT Final Result [facility] [address] [place] [address] documented in this encounter Visit Diagnoses Diagnosis Supervision of normal - Primary Supervision of other normal Encounter for supervision of normal , antepartum, unspecified Chronic hepatitis C without hepatic coma (HCC-CMS) Chronic hepatitis C without mention of hepatic coma documented in this encounter Admitting Diagnoses Diagnosis Supervision of normal Supervision of other normal documented in this encounter Administered Medications Inactive Administered Medications - up to 3 most recent administrations Medication Order MAR Action Action Date Dose Rate Site acetaminophen (TYLENOL) tablet 1,000 mg 1,000 mg, oral, EVERY 8 HOURS PRN, Starting on Mon02/11/22 at 0245, Until 02/13/22 at 1435, Pain, Routine, Given 02/13/2022 13:17 EDT 1,000 mg Given 02/13/2022 5:38 EDT 1,000 mg Given 02/12/2022 21:35 EDT 1,000 mg ibuprofen (MOTRIN) tablet 800 mg 800 mg, oral, EVERY 8 HOURS PRN, Starting on Mon02/11/22 at 0245, Until 02/13/22 at 1435, Pain, Routine, Given 02/13/2022 13:17 EDT 800 mg Given 02/13/2022 5:38 EDT 800 mg Given 02/12/2022 21:35 EDT 800 mg medroxyPROGESTERone (DEPO-PROVERA) syringe 150 mg 150 mg, intramuscular, NOW X1, 1 dose, On 02/12/22 at 1700, Routine Given 02/12/2022 21:36 EDT 150 mg Right D eltoid methadone (DOLOPHINE) concentrated solution 75 mg 75 mg, oral, USER SPECIFIED (2 times per day), First dose on Mon02/11/22 at 0800, Until Discontinued, Routine Given 02/13/2022 8:09 EDT 75 mg Given 02/12/2022 16:59 EDT 75 mg Given 02/12/2022 10:07 EDT 75 mg multivitamin vit-iron fumarate-FA (STUARTNATAL) 27 mg iron- 1 mg tablet 1 Tablet 1 Tablet, oral, DAILY, First dose on Mon02/11/22 at 0900, Until Discontinued, Routine, Given 02/13/2022 8:09 EDT 1 Tablet Given 02/12/2022 10:07 EDT 1 Tablet Given 02/11/2022 10:30 EDT 1 Tablet oxytocin (PITOCIN) 10 unit/mL injection 1 dose, Starting on Mon02/11/22 at 0201, Until Mon02/11/22 at 0218 Given 02/11/2022 2:18 EDT 10 Units sodium chloride 0.9 % (flush) flush 5 mL 5 mL, intravenous, EVERY 8 HOURS, First dose on Mon02/11/22 at 0245, Until Discontinued, Routine, Release Given 02/11/2022 16:03 EDT 5 mL Given 02/11/2022 10:40 EDT 5 mL documented in this encounter Active and Recently Administered Medications Times are shown in EDT. Scheduled Medication Order 02/11/2022 02/12/2022 02/13/2022 medroxyPROGESTERone (DEPO-PROVERA) syringe 150 mg (COMPLETED) 150 mg, intramuscular, NOW X1, 1 dose, On 02/12/22 at 1700, Routine 2136 (Given - Provider: Linda Barron RN) methadone (DOLOPHINE) concentrated solution 75 mg 75 mg, oral, USER SPECIFIED (2 times per day), First dose on Mon02/11/22 at 0800, Until Discontinued, Routine 0820 (Given - Provider: Tammy Fay RN)1603 (Given - Provider: Nancy Simeon RN) 1007 (Given - Provider: Nancy Simeon RN)1659 (Given - Provider: Nancy Simeon RN) 0809 (Given - Provider: Nancy Simeon RN) multivitamin vit-iron fumarate-FA (STUARTNATAL) 27 mg iron- 1 mg tablet 1 Tablet 1 Tablet, oral, DAILY, First dose on Mon02/11/22 at 0900, Until Discontinued, Routine, 1030 (Given - Provider: Tammy Fay RN)1232 (Not Given - Provider: Tammy Fay RN - Reason: Order parameters not met) 1007 (Given - Provider: Nancy Simeon RN) 0809 (Given - Provider: Nancy Simeon RN) senna (SENOKOT) tablet 2 Tablet 2 Tablet, oral, AT BEDTIME, First dose on Mon02/11/22 at 2100, Until Discontinued, Routine, 2329 (Not Given - Provider: Maribeth Altamirano RN - Reason: Patient/family refused) 2137 (Not Given - Provider: Linda Barron RN - Reason: Patient/family refused) sodium chloride 0.9 % (flush) flush 5 mL(Linked Group 1) 5 mL, intravenous, EVERY 8 HOURS, First dose on Mon02/11/22 at 0245, Until Discontinued, Routine, Release 0754 (Not Given - Provider: Tammy Fay RN - Reason: Order parameters not met)1040 (Given - Provider: Tammy Fay RN)1603 (Given - Provider: Nancy Simeon RN) 0229 (Not Given - Provider: Maribeth Altamirano RN - Reason: Loss of IV access)0800 (Canceled Entry - Provider: Nancy Simeon RN - Comment: no IV access)1600 (Canceled Entry - Provider: Nancy Simeon RN - Comment: no IV acess) 0000 (Canceled Entry - Provider: Nancy Simeon RN - Comment: no IV access)0803 (Canceled Entry - Provider: Nancy Simeon RN - Comment: no IV access) PRN Medication Order 02/11/2022 02/12/2022 02/13/2022 acetaminophen (TYLENOL) tablet 1,000 mg 1,000 mg, oral, EVERY 8 HOURS PRN, Starting on Mon02/11/22 at 0245, Until 02/13/22 at 1435, Pain, Routine, 0344 (Given - Provider: Marie Orantes RN)123 (Given - Provider: Tammy Fay, ALLEN)2055 (Given - Provider: Maribeth Altamirano, ALLEN) 045 (Given - Provider: Maribeth Altamirano, RN)131 (Given - Provider: Nancy Simeon, RN)2134 (Given - Provider: Linda Barron RN) 0538 (Given - Provider: Linda Barron RN)131 (Given - Provider: Nancy Simeon RN) calcium carbonate (TUMS) 200 mg calcium (500 mg) per chewable tablet tablet,chewable 2 Tablet 2 Tablet, oral, EVERY 2 HOURS PRN, Starting on Mon02/11/22 at 0534, Until 02/13/22 at 1435, Heartburn, Indigestion, Routine, ibuprofen (MOTRIN) tablet 800 mg 800 mg, oral, EVERY 8 HOURS PRN, Starting on Mon02/11/22 at 0245, Until 02/13/22 at 1435, Pain, Routine, 0344 (Given - Provider: Marie Orantes RN)123 (Given - Provider: Tammy Fay, ALLEN)2055 (Given - Provider: Maribeth Altamirano RN) 045 (Given - Provider: Maribeth Altamirano RN)131 (Given - Provider: Nancy Simeon, RN)2134 (Given - Provider: Linda Barron RN) 0538 (Given - Provider: Linda Barron RN)131 (Given - Provider: Nancy Simeon, RN) lanolin HPA (LANSINOH) cream topical, PRN, Starting on Mon02/11/22 at 0534, Until 02/13/22 at 1435, Other, breast feeding, polyethylene glycol 3350 (MIRALAX) packet 17 g 17 g, oral, 2 TIMES DAILY PRN, Starting on Mon02/11/22 at 0534, Until 02/13/22 at 1435, Constipation, Routine, No Frequency Medication Order 02/11/2022 02/12/2022 02/13/2022 oxytocin (PITOCIN) 10 unit/mL injection (COMPLETED) 1 dose, Starting on Mon02/11/22 at 0201, Until Mon02/11/22 at 0218 0218 (Given - Provider: Marie Orantes RN) Linked Groups Order Group 1: Change IV to Saline Lock (CANCELED) Routine, ONE TIME, On Mon02/11/22 at 0230, For 1 occurrence, Once PO intake tolerated and oxytocin infusion complete., Release And sodium chloride 0.9 % (flush) flush 5 mLJump to med 5 mL, intravenous, EVERY 8 HOURS, First dose on Mon02/11/22 at 0245, Until Discontinued, Routine, Release documented in this encounter Orders Medications Ordered That Ellis ht Not Have Been Administered Count Last Ordered Date First Ordered Date calcium carbonate (TUMS) 200 mg calcium (500 mg) per chewable tablet tablet,chewable 2 Tablet 1 02/11/2022 lactated ringers (LR) infusion 1 02/11/2022 lactated ringers BOLUS 500 mL 1 02/11/2022 lanolin HPA (LANSINOH) cream 1 02/11/2022 lidocaine (PF) 10 mg/mL (1 % ) injection 2 mg 1 02/11/2022 lidocaine 1 % injection 20 mL 1 02/11/2022 miSOPROStol (CYTOTEC) tablet 200 mcg 07/2021 miSOPROStol (CYTOTEC) tablet 800 mcg 07/2021 ondansetron (PF) (ZOFRAN) injection 4 mg 1 02/11/2022 ondansetron (ZOFRAN-ODT) dis integrating tablet 4 mg 1 02/11/2022 oxytocin in lactated ringers 30 unit/500 mL infusion solution 1 02/11/2022 oxytocin in lactated ringers 30 units/500 ml 1 02/11/2022 polyethylene glycol 3350 (IN RALAX) packet 17 g 1 02/11/2022 senna (SENOKOT) tablet 2 Tablet 1 tranexamic acid (CYKLOKAPRON ) injection 1,000 mg 1 02/11/2022 IV Count Last Ordered Date First Orde red Date IV REQUEST 2 02/11/2022 Admission Count Last Ordered Date First Orde red Date ADMIT TO INPATIENT 1 02/11/2022 Transfer Count Last Ordered Date First Orde red Date TRANSFER PATIENT 1 02/11/2022 Discharge Count Last Ordered Date First Orde red Date DISCHARGE PATIENT 1 02/13/2022 Legal Count Last Ordered Date First Orde red Date MISCELLANEOUS DISCHARGE INSTRUCTIONS 2 09/2021 documented in this encounter Care Teams Ibm Bpm Architect Relationship Specialty Start Date End Date Martha Saavedra FNP [phone] [place] [address] PCP - General 02/01/17 09/15/22 documented as of this encounter
--- OUTSIDE RECORDS SUMMARY | 2024-07-06 18:49 | XMS_ITS | Encounter Summary ---
Author Organization [facility] Address [address] [place] [address] Care Team Providers Care Global Position System Technician Name Role Phone Martha Saavedra Noe Harjeet [facility] Primary Care Provi devon Reason for Visit * Reason Comments Routine Visit Encounter Details Date Type Department Care Team (Late st Contact Info) Description 01/13/2022 15:15 EDT Routine [facility] OBGYN Services - [facility] [address], [place] [phone] Terry Douglas MD [address] [place] [phone] GA: 34w4d Social History Tobacco Use Types Packs/Day Years [...] Sign Reading Time Taken Comments Blood Pressure 118/67 01/13/2022 1523 EDT Pulse - - Temperature - - Respiratory Rate - - Oxygen Saturation - - Inhaled Oxygen Concentration - - Weight 69.7 kg (153 lb 9.6 oz) 01/13/2022 1523 E DT Height - - Body Mass Index 23.7 12/16/2021 1425 EDT documented in this encounter [...] Progress Notes * Terry Ovalle MD - 01/13/2022 3525 EDT Antepartum [facility] Clinic Note CC: Karin Dixon is a 26 y.o. @ 34w4d Subjective: Feeling well. Had frank ness intermittently. Just tightening. Denies contractions, LOF, VB. +FM. Denies RAMOS, visual changes, CP/SOB, RUQ pain. Has left foot swelling, has this sometimesoutside of , no pain or redness, goes away spontaneously. OUD: 75 mg BID, denies s/sx of withdrawal Depression/anxiety: started zoloft but only took 3 days, had side effects so stopped, was taking itin the morning. Was on wellbutrin in the past. Objective: Vitals: BP: 118/67 Weight : 69.7 kg (153 lb 9.6 oz) Movement: Present NST completed. 34+4: 8/10 BPP, points off for breathing Assessment/Plan: Karin Dixon is a 26 y.o. @ 34w4d presenting for routine visit. Substance abuse (HCC-CMS) (HCC) - stable on 75 mg BID - no s/sx withdrawal - UDS at last visit appropriate Poor growth affecting management of mother in third trimester, not applicable or unspecified fetus - 8/10 BPP today, points off for breathing - antepartum testing and growth US next week - If normal growth then not FGR anymore Supervision of high risk , antepartum - GBS at next visit - Up to date on care RTC [address] Bowden. TERRY OVALLE MD 01/13/2022 17:34 Obstetrics & Gynecology, PGY-4 Pager [phone] Opiate Dependence Visit Chief Complaint: Opiate Dependence in Withdrawal Symptoms: none Used drugs in last 2 weeks? No Seen substance abuse counselor in past 2 weeks? Yes Counselor: Has one Seen social security specialist in past 4 weeks? Yes UDS: completed last visit, appropriate If the patient does not have a substance abuse counselor, she must see the social security specialist or have a nurse from our office arrange counseling through [place] or [facility] Assessment: Stable TERRY OVALLE MD * Alcira Bowden MD - 01/13/2022 1515 EDT Attestation statement: I discussed the patient with the resident at the time of the visit. I agree with the findings and the plan of care documented in the resident's note. Alcira Bowden MD 01/28/2022 9:21 documented in this encounter Miscellaneous Notes * Assessment & Plan Note - Terry Ovalle MD - 01/13/2022 1733 EDT Associated Problem(s): Supervision of high risk , antepartum (Resolved 06/08/2022) - GBS at next visit - Up to date on care * Assessment & Plan Note - Terry Ovalle MD - 01/13/2022 1732 EDT Associated Problem(s): Poor growth affecting management of mother in third trimester, not applicable or unspecified fetus (Resolved 06/08/2022) - 8/10 BPP today, points off for breathing - antepartum testing and growth US next week - If normal growth then not FGR anymore * Assessment & Plan Note - Terry Ovalle MD - 01/13/2022 1732 EDT Associated Problem(s): Substance abuse ([facility]) - stable on 75 mg BID - no s/sx withdrawal - UDS at last visit appropriate documented in this encounter Plan of Treatment Not on file documented as of this encounter Visit Diagnoses Diagnosis Substance abuse ([facility]-CMS)- Primary Other, mixed, or unspecified nondependent drug abuse, unspecified Poor growth affecting management of mother in third trimester, not applicable or unspecified fetus documented in this encounter Care Teams Global Position System Technician Relationship Specialty Start Date End Date Martha Saavedra FNP [address] [facility],[address] [place] [address] PCP - General 02/01/17 09/15/22 documented as of this encounter
--- OUTSIDE RECORDS SUMMARY | 2024-07-06 18:49 | XMS_ITS | Encounter Summary ---
Author Organization [facility] Address [address] [place] [address] Care Team Providers Care Textile Artist Name Role Phone Nel Saavedranavi Liu Cosby [facility] Primary Care Provi devon Reason for Visit * Reason Comments Non-stress Test Encounter Details Date Type Department Care Team (Late st Contact Info) Description 01/20/2022 15:30 EDT Office Visit [facility] Obstetrics & Midwifery - [facility] [address] [place] [address] Poor growth affecting management of [...] Progress Notes * Beverly Gu MD - 01/20/2022 1530 EDT NST Report Baseline Heart Rate: 130 Accelerations: present Movement: present Decelerations: absent Contractions: irregular Interpretation: Reactive Beverly Gu MD 01/20/2022 17:35 documented in this encounter Plan of Treatment Not on file documented as of this encounter Visit Diagnoses Diagnosis Poor growth affecting management of mother in third trimester, not applicable or unspecified fetus- Primary documented in this encounter Care Teams Textile Artist Relationship Specialty Start Date End Date Martha Saavedra FNP [address] [facility] [place] [address] PCP - General 02/01/17 09/15/22 documented as of this encounter
--- OUTSIDE RECORDS SUMMARY | 2024-07-06 18:49 | XMS_ITS | Encounter Summary ---
Author Organization [facility] Address [address] [place] [address] Care Team Providers Care Carton Maker Name Role Phone Nel Saavedranavi Liu Cosby [facility] Primary Care Provi devon Reason for Visit * Reason Comments Non-stress Test Encounter Details Date Type Department Care Team (Late st Contact Info) Description 12/16/2021 12:30 EDT Office Visit [facility] Obstetrics & Midwifery - [facility] [address] [place] [address] Poor growth affecting management of [...] documented in this encounter Progress Notes * Leida Dempsey, ALLEN - 12/16/2021 1230 EDT Met with Karin to review what to expect for BRAYAN scoring and hospital stay . Karin is a with an MYCHAL of 02/20/22. She is currently a nonsmoker. She is planning to breastfeed. Backend Developer: unknown. Opioid Agonist Therapy She currently receives Methadone 150 mg daily from [facility]. I explained that there was a minimum of 96 hours, or four days, hospital stay for her for BRAYAN monitoring. I also explained there was less than a 30% chance of her baby requiring treatment for abstinence syndrome. I gave her a Care Notebook and answered her questions. Also discussed CHARM consent w/pt . She would like to think about what to do and will revisit the consent next week. Will get rides scheduled out for pt. She did not have any issues today with her transportation that was set up for her. Call placed to [facility] office. Order was placed on 12/[address] Castanon for NSTs. No appts scheduled with their office. Spoke with RN who advised that since she is not their pt that they need to get approval by their MDs. They will send request to them and reach back out to us with their response. * Jackeline Fenton MD - 12/16/2021 1230 EDT NST Report Baseline Heart Rate: 125 Accelerations: Present (10 x 10s only) Movement: present Decelerations: absent Contractions: absent Interpretation: reactive for gestational age Jackeline Fenton MD 12/17/2021 18:56 documented in this encounter Plan of Treatment Not on file documented as of this encounter Visit Diagnoses Diagnosis Poor growth affecting management of mother in third trimester, not applicable or unspecified fetus- Primary documented in this encounter Care Teams Carton Maker Relationship Specialty Start Date End Date Martha Saavedra FNP [address] [place] [address],[address] [place] [address] PCP - General 02/01/17 09/15/22 documented as of this encounter
--- OUTSIDE RECORDS SUMMARY | 2024-07-06 18:49 | XMS_ITS | Encounter Summary ---
Author Organization [facility] Address [address] [place] [address] Care Team Providers Care Judicial Law Clerk Name Role Phone Martha Saavedra [facility] Primary Care Provi devon Reason for Referral * MANAGER CABLE (Routine/Next Available) - Order Cancelled Specialty Diagnoses / Procedures Referred By Contac t Referred To Contact Diagnoses Poor growth affecting management of mother in third trimester, single or unspecified fetus Procedures US OB BIOPHYSICAL PROFILE WITH NON STRESS Skye Douglas MD Phone: tel: fax: [facility] Referral ID Status Reason Start Date Expiration Date V isits Requested Visits Authorized [id number] Order Cancelled 12/10/2021 15 15 Reason for Visit * MANAGER CABLE (Routine/Next Available) - Order Cancelled Specialty Diagnoses / Procedures Referred By Contaudi t Referred To Contact Diagnoses Poor growth affecting management of mother in third trimester, single or unspecified fetus Procedures US OB BIOPHYSICAL PROFILE WITH NON STRESS Skye Douglas MD Phone: tel: fax: [facility] Referral ID Status Reason Start Date Expiration Date V isits Requested Visits Authorized [id number] Order Cancelled 12/10/2021 15 15 Encounter Details Date Type Department Care Team (Latest Contact Info) Description 01/13/2022 15:45 EDT - 01/13/2022 23:59 EDT Hospital Encounter [facility] Obstetrics Services - [address] [address] Poor growth affecting management of mother in [...] OB BIOPHYSICAL PROFILE WITH NON STRESS Routine 01/13/2022 16:27 EDT Poor growth affecting management of mother in third trimester, single or unspecified fetus documented in this encounter Results * US OB BIOPHYSICAL PROFILE WITH NON STRESS (01/13/2022 16:27 EDT) Anatomical Region Laterality Modality Pelvis Ultrasound 01/13/2022 15:5 3 EDT Narrative 01/13/2022 16:34 EDT Indication ======== Maternal substance use. History [...] ====== LMP on: ?05/12/2021 GA by LMP ??35 w + 1 d MYCHAL by LMP : ? 02/16/2022 Previous Ultrasound on: ?08/10/2021 Type of prior assessment: ??CRL U/S measurement at prior assessment date ?? 56.3 mm GA by previous U/S 34 w + 4 d MYCHAL by previous Ultrasound: ?02/20/2022 Assigned: ??based on ultrasound (CRL), selected on 11/13/2021 Assigned GA ?34 w + 4 d Assigned MYCHAL: ??02/20/2022 General Evaluation Cardiac activity Present. FHR 124 bpm. movements: visualized. Presentation: cephalic, spine anterior Placenta: anterior, right Amniotic Fluid Assessment Amount of AF: normal MVP 4.9 cm. CHAS 14.6 cm. Q1 2.9 cm, Q2 1.9 cm, Q3 4.9 cm, Q4 4.9 cm Biophysical Profile 0: breathing movements 2: Gross body movements 2: tone 2: Amniotic fluid volume NST: reactive 01/19 Biophysical profile score Interpretation: normal DVD number 3044, Duration: 30 minutes Growth Overview Exam date [...] ====== Voluson E10, Transabdominal ultrasound examination. View: Limited by advanced gestational age Impression ========= [id number] Biophysical Profile (including NST) This is a paiz . Please see BPP score above. Follow-up ======== Follow-up as clinically indicated. DATE OF SERVICE: 01/13/2022 Procedure Note Beverly Gu MD - 01/13/2022 Indication ======== Maternal substance use. History FGR [...] ====== LMP on: 05/12/2021 GA by LMP 35 w + 1 d MYCHAL by LMP : 02/16/2022 Previous Ultrasound on: 08/10/2021 Type of prior assessment: CRL U/S measurement at prior assessment date 56.3 mm GA by previous U/S 34 w + 4 d MYCHAL by previous Ultrasound: 02/20/2022 Assigned: based on ultrasound (CRL), selected on 11/13/2021 Assigned GA 34 w + 4 d Assigned MYCHAL: 02/20/2022 General Evaluation Cardiac activity Present. FHR 124 bpm. movements: visualized.Presentation: cephalic, spine anterior Placenta: anterior, right Amniotic Fluid Assessment Amount of AF: normal MVP 4.9 cm. CHAS 14.6 cm. Q1 2.9 cm, Q2 1.9 cm, Q3 4.9 cm, Q4 4.9 cm Biophysical Profile 0: breathing movements 2: Gross body movements 2: tone 2: Amniotic fluid volume NST: reactive 10 Biophysical profile score Interpretation: normal DVD number 3044, Duration: 30 minutes Growth Overview Exam date GA BPD (mm) HC (mm) AC (mm) FL (mm) HL (mm) EFW (g) 11/13/2021 25w 6d 52.9 <1% 214.8 4% 193.8 4% 40.5 2% 39.75% 607 <1% 12/06/2021 29w 1d 68.3 4% 255.1 12% 257.7 68% 50.5 6% 213028% 12/30/2021 32w 4d 81.7 50% 303.6 55% 281.6 38% 60.3 27% 51.13% 1914 23% Method ====== Voluson E10, Transabdominal ultrasound examination. View: Limited byadvanced gestational age Impression ========= [id number] Biophysical Profile (including NST) This is a paiz . Please see BPP score above. Follow-up ======== Follow-up as clinically indicated. DATE OF SERVICE: 01/13/2022 us Albert Hayes MD IMG US OB ORDERABLES Chloe l Result documented in this encounter Visit Diagnoses Diagnosis Poor growth affecting management of mother in third trimester, single or unspecified fetus documented in this encounter Care Teams Judicial Law Clerk Relationship Specialty Start Date End Date Martha Saavedra FNP [address] [facility] [place] [address] PCP - General 02/01/17 09/15/22 documented as of this encounter
--- OUTSIDE RECORDS SUMMARY | 2024-07-06 18:49 | XMS_ITS | Encounter Summary ---
Author Organization [facility] Address [address] [place] [address] Care Team Providers Care Billet Driller Name Role Phone Nel Saavedranavi Liu Cosby [facility] Primary Care Provi devon Reason for Visit * Reason Comments Non-stress Test Encounter Details Date Type Department Care Team (Late st Contact Info) Description 01/13/2022 14:30 EDT Office Visit [facility] Obstetrics & Midwifery - [facility] [address] [place] [address] Poor growth affecting management of [...] Sign Reading Time Taken Comments Blood Pressure 117/74 01/13/2022 1502 EDT Pulse - - Temperature - - [...] Progress Notes * Beverly Gu MD - 01/13/2022 1430 EDT NST Report Baseline Heart Rate: 120 Accelerations: present Movement: present Decelerations: absent Contractions: absent Interpretation: reactive Beverly Gu MD 01/13/2022 15:17 documented in this encounter Plan of Treatment Not on file documented as of this encounter Visit Diagnoses Diagnosis Poor growth affecting management of mother in third trimester, not applicable or unspecified fetus- Primary documented in this encounter Care Teams Billet Driller Relationship Specialty Start Date End Date Martha Saavedra FNP [address] [facility] [place] [address] PCP - General 02/01/17 09/15/22 documented as of this encounter
--- OUTSIDE RECORDS SUMMARY | 2024-07-06 18:49 | XMS_ITS | Encounter Summary ---
Author Organization [facility] Address [address] [place] [address] Care Team Providers Care Personal Vehicle Advisor Name Role Phone Martha Saavedra Noe Harjeet [facility] Primary Care Provi devon Reason for Visit * Reason Onset Date Comments Other 12/16/2021 transportation Encounter Details Date Type Department Care Team (Late st Contact Info) Description 12/16/2021 Telephone [facility] OBGYN Services - [facility] [address] [place] [address] Leida Dempsey, RN Other (transportation) Social History Tobacco Use Types Packs/Day Years [...] Encounter - Leida Dempsey RN - 12/16/2021 1502 EDT Call placed to [employer] ride network to setup a ride for appts on 12/23. 0830 NST 0900 BPP lathe setup operator time 0730 and departure at 10 AM. Ride is confirmed. Pt is concerned that she will not be able to find a ride that early in the AM to get to [facility]. She thinks she can try to work it out. She says that she may be able to get a car to use in the future, but will need gas cards. Advised that RN will inform SW who will be working with her in the future. Advised to call [facility] if she doesn't think she can make next weeks appt's work. Pt agrees with plan. No further needs at this time. documented in this encounter Plan of Treatment Not on file documented as of this encounter Visit Diagnoses Not on filedocumented in this encounter Care Teams Personal Vehicle Advisor Relationship Specialty Start Date End Date Martha Saavedra FNP [address] [facility] [place] [address] PCP - General 02/01/17 09/15/22 documented as of this encounter
--- OUTSIDE RECORDS SUMMARY | 2024-07-06 18:49 | XMS_ITS | Encounter Summary ---
Author Organization [facility] Address [address] [place] [address] Care Team Providers Care Window Caser Name Role Phone Martha Saavedra Noe MaoCosby [facility] Primary Care Provi devon Reason for Visit * Reason Comments Routine Visit Encounter Details Date Type Department Care Team (Late st Contact Info) Description 12/30/2021 16:15 EDT Routine [facility] OBGYN Services - [address] [phone] Roberto Carlos Gomez MD [address] [facility] [place] [address] GA: 32w4d Social History Tobacco Use Types Packs/Day Years [...] Sign Reading Time Taken Comments Blood Pressure 131/61 12/30/2021 1653 EDT Pulse - - Temperature - - Respiratory Rate - - Oxygen Saturation - - Inhaled Oxygen Concentration - - Weight 66.3 kg (146 lb 3.2 oz) 12/30/2021 1653 E DT Height - - Body Mass Index 22.56 12/16/2021 1425 EDT documented in this encounter [...] 11/16/2021 20:00 SHEILAT Kenzie Mcclure RN documented as of this encounter Mental Status * Because of a physical, mental, or emotional condition, do you have serious difficulty concentrating, remembering, or making decisions? (5 years old or older) Answer Entry Date Author No 11/16/2021 20:00 EDT Kenzie Mcclure RN documented in this encounter Progress Notes * Roberto Carlos Gomez MD - 12/30/2021 1615 EDT [facility] ANTEPARTUM VISIT NOTE CC: Karin Dixon is a 26 y.o. @ 32w4d Subjective: Feeling well. Denies ctx, LOF, VB. +FM. Objective: Vitals: BP: 131/61 Weight : 66.3 kg (146 lb 3.2 oz) Movement: Present BPP: Narrative & Impression Indication ======== growth restriction - Maternal substance [...] EFW (oz) 4 oz EFW by: Hadlock ([id number]) Head / Face / Neck Cephalic index [...] 38% 60.3 27% 51.1 3% 1914 23% Method ====== Transabdominal ultrasound examination, Voluson E10. View: Limited by position Impression ========= 20369 Follow-up obstetrical ultrasound This is a paiz gestation. biometry is consistent with prior dating. Except where noted above, the anatomy was not reviewed in detail as this is a follow-up studyand the anatomy was previously assessed. Normal fluid and movement are noted. [address] Biophysical Profile (including NST) See BPP score above. NST: reactive over 40 min Assessment/Plan: Karin Dixon is a 26 y.o. @ 32w4d who presents for routine APV. Normotensive. Chronic hepatitis C virus infection (HCC-CMS) ([facility]) Recent HCV VL 73,900 Plan to repeat in 3rd tri/ on admission Will discuss referral to GI for tx at future visits COVID-19 affecting in second trimester Normal growth today Substance abuse (HCC-CMS) ([facility]) Unable to void today UDS at next visit Episodic mood disorder (HCC-CMS) ([facility]) Mood stable today, no SI/HI Poor growth affecting management of mother in third trimester, not applicable or unspecified fetus 01/19 BPP, NST reactive over 40 min EFW 23%, AC 38% at 32w4d HCV VL 73,900 12/06/21 RTC in 1 wk. Patient discussed and plan directly developed with attending physician Dr. Pride. Roberto Carlos Gomez MD PGY-3 Obstetrics and Gynecology Pager # [phone] 01/04/22 19:15 * Kelly Pride MD MPH - 12/30/2021 1615 EDT Attestation statement: I discussed the patient with the resident/fellow at the time of the visit. Iagree with the findings and the plan of care documented in the resident's/fellow's note. documented in this encounter Miscellaneous Notes * Assessment & Plan Note - Roberto Carlos Gomez MD - 01/04/20221913 EDTAssociated Problem(s): Poor growth affecting management of mother in third trimester, not applicable or unspecified fetus (Resolved 06/08/2022) 8/10 BPP, NST reactive over 40 min EFW 23%, AC 38% at 32w4d * Assessment & Plan Note - Roberto Carlos Gomez MD - 01/04/20221910 EDTAssociated Problem(s): Episodic mood disorder ([facility]) Mood stable today, no SI/HI * Assessment & Plan Note - Robreto Carlos Gomez MD - 01/04/20221910 EDTAssociated Problem(s): Substance abuse ([facility]) Unable to void today UDS at next visit * Assessment & Plan Note - Roberto Carlos Gomez MD - 01/04/20221908 EDTAssociated Problem(s): COVID-19 affecting in second trimester (Resolved 06/08/2022) Normal growth today * Assessment & Plan Note - Roberto Carlos Gomez MD - 01/04/20221908 EDTAssociated Problem(s): Chronic hepatitis C virus infection (HCC-CMS) Recent HCV VL 73,900 Plan to repeat in 3rd tri/ on admission Will discuss referral to GI for tx at future visits documented in this encounter Plan of Treatment Not on file documented as of this encounter Visit Diagnoses Diagnosis Supervision of high risk , antepartum- Primary documented in this encounter Care Teams Window Caser Relationship Specialty Start Date End Date Martha Saavedra JONO [address] [facility] [place] [address] PCP - General 02/01/17 09/15/22 documented as of this encounter
--- OUTSIDE RECORDS SUMMARY | 2024-07-06 18:49 | XMS_ITS | Encounter Summary ---
Author Organization [facility] Address [address] [place] [address] Care Team Providers Care Bleach Maker Name Role Phone Martha Saavedra Noe Harjeet [facility] Primary Care Provi devon Reason for Visit * Reason Comments Social Work Encounter Details Date Type Department Care Team (Late st Contact Info) Description 01/27/2022 Community Health Team [facility] OBGYN Services - [address] [phone] Jeannette Post Social History Tobacco Use Types [...] encounter Progress Notes * Jeannette Post - 01/27/2022 1528 EDT SW left a with patient with the goal of supporting patient with housing challenges. Patient is encouraged to contact SW. .. [facility] Total Time: 5 minutes phone, 5 minutes charting Referral: n/a Follow up: ongoing Status: Active documented in this encounter Plan of Treatment Not on file documented as of this encounter Visit Diagnoses Not on filedocumented in this encounter Care Teams Bleach Maker Relationship Specialty Start Date End Date Martha Saavedra FNP [address] [facility] [place] [address] PCP - General 02/01/17 09/15/22 documented as of this encounter
--- OUTSIDE RECORDS SUMMARY | 2024-07-06 18:49 | XMS_ITS | Encounter Summary ---
Author Organization [facility] Address [address] [place] [address] Care Team Providers Care Sheet Metal Contractor Name Role Phone Martha Saavedra Noe Harjeet [facility] Primary Care Provi devon Reason for Visit * Reason Comments Routine Visit +fm brax melany -lof -vb Encounter Details Date Type Department Care Team (Late st Contact Info) Description 01/06/2022 15:15 EDT Routine [facility] OBGYN Services - [address] [phone] Terry Douglas MD [address] [place] [phone] [place]: 33w4d Social History Tobacco Use Types Packs/Day Years [...] Sign Reading Time Taken Comments Blood Pressure 110/64 01/06/2022 1522 EDT Pulse - - Temperature - - Respiratory Rate - - Oxygen Saturation - - Inhaled Oxygen Concentration - - Weight 67.6 kg (149 lb) 01/06/2022 1522 EDT Height - - Body Mass Index 22.99 12/16/2021 1425 EDT documented in this encounter [...] Kenzie Soares RN documented in this encounter Ordered Prescriptions Prescription Sig Dispense Quantity Refills Last Filled Start Date End Date sertraline (ZOLOFT) 25 mg tablet Take 1 Tablet by mouth daily for 90 days. Take 1/2 tablet daily for 2 weeks, then increase 1 tab daily. 30 Tablet 2 01/06/2022 2 documented in this encounter Progress Notes * Terry Ovalle MD - 01/06/2022 2465 EDT [facility]te[facility] Note CC: Karin Dixon is a 26 y.o. @ 33w4d Subjective: Feeling well. Rare frank ness contractions. Has some discharge and lost her mucous plug. Denies contractions, LOF, VB. +FM. Denies RAMOS, visual changes, CP/SOB, RUQ pain, LE swelling. DCF has been checking, finished marsha assessment, just needs counseling and is setting up close to home OUD: UDS, denies s/sx, currently on 75 mg BID methadone Depression/anxiety:starting zoloft Repeat third tri labs HIV, Hep B, Hep C, RPR, G/C Objective: Vitals: BP: 110/64 Weight : 67.6 kg (149 lb) 33+4: anterior placenta, cephalic, CHAS 15.6 cm, 10/10 BPP Assessment/Plan: Karin Dixon is a 26 y.o. @ 33w4d presenting for routine visit. Chronic hepatitis C virus infection (HCC-CMS) (HCC) - VL during next lab draw Substance abuse (HCC-CMS) (HCC) - stable on 75 mg BID - has done all assessments needed - UDS collected today Poor growth affecting management of mother in third trimester, not applicable or unspecified fetus - BPP completed today - Growth US ordered, will add to testing 35+4 RTC 01/13/2022. Discussed with Dr. Hayes. TERRY OVALLE MD 01/07/2022 10:39 Obstetrics & Gynecology, PGY-4 Pager [phone] Opiate Dependence Visit Chief Complaint: Opiate Dependence in Withdrawal Symptoms: none Used drugs in last 2 weeks? No Seen substance abuse counselor in past 2 weeks? Yes Counselor: has one Seen healthcare social worker in past 4 weeks? Yes UDS: collected If the patient does not have a substance abuse counselor, she must see the healthcare social worker or have a nurse from our office arrange counseling through [place] or [facility] Assessment: Yasmani OVALLE MD * Albert Hayes MD - 01/06/2022 1515 EDT I have reviewed the record and I have discussed this patient's care with the resident. I agree withthe assessment and plan as stated in the note. documented in this encounter Miscellaneous Notes * Assessment & Plan Note - Terry Ovalle MD - 01/07/2022 0835 EDT Associated Problem(s): Poor growth affecting management of mother in third trimester, not applicable or unspecified fetus (Resolved 06/08/2022) - BPP completed today - Growth US ordered, will add to testing 35+4 * Assessment & Plan Note - Terry Ovalle MD - 01/07/2022 0834 EDT Associated Problem(s): Substance abuse (HCC-CMS) - stable on 75 mg BID - has done all assessments needed - UDS collected today * Assessment & Plan Note - Terry Ovalle MD - 01/07/2022 0834 EDT Associated Problem(s): Chronic hepatitis C virus infection (HCC-CMS) - VL during next lab draw documented in this encounter Plan of Treatment Not on file documented as of this encounter Procedures Procedure Name Priority Date/Time Associated Diagnosis Comments POLYSUBSTANCE USE PANEL, URINE Routine 01/06/2022 15:43 EDT Substance abuse ([facility]) ([facility]) documented in this encounter Results * (ABNORMAL) POLYSUBSTANCE USE PANEL, URINE (01/06/2022 15:43 EDT) [facility] Buprenorphine Screen, Urine Negative <5- ng/mL 01/07/2022 12:06 [facility] Oxycodone Screen, Urine Negative <100- ng/mL 01/07/2022 12:06 [facility] Cotinine Screen, Urine Negative <500- ng/mL 01/07/2022 12:06 [facility] Benzodiazepines Screen, Urine Negative <200- ng/mL 01/07/2022 12:06 [facility] Amphetamines Screen, Urine Negative <1000- ng/mL 01/07/2022 12:06 [facility] Cocaine Metabolite Screen, Urine Negative <150- ng/mL 01/07/2022 12:06 [facility] THC Metabolites Screen, Urine Negative <50- ng/mL 01/07/2022 12:06 [facility] Barbiturates Screen, Urine Negative <200- ng/mL 01/07/2022 12:06 [facility] Opiates Screen, Urine Negative <300- ng/mL 01/07/2022 12:06 [facility] Fentanyl Screen, U Negative <1- ng/mL 01/07/2022 12:06 [facility] Alcohol Metabolite (EtG) Screen, Urine Negative <500- ng/mL 01/07/2022 12:06 [facility] Methadone Screen, Urine Positive(A) <300- ng/mL 01/07/2022 12:06 [facility] Urine URINE / Unknown Urine Collect / Unknown 01/06/2022 15:43 EDT 01/06/2022 15:53 EDT Narrative [facility] - 01/07/2022 12:06 EDT Testing performed by: [facility] [address], [address], [place] [address] Summer Law Clerk: Tommy Muñiz MD; CLIA # [id number] Albert Hayes MD GEN LAB UNIT COLLECT SHAYLEE MCGILL Final Result [facility] [address], [address] [place] [address], [facility] [phone] documented in this encounter Visit Diagnoses Diagnosis Episodic mood disorder (HCC-CMS)- Primary Unspecified episodic mood disorder Substance abuse (HCC-CMS) Other, mixed, or unspecified nondependent drug abuse, unspecified Chronic hepatitis C without hepatic coma (HCC-CMS) Chronic hepatitis C without mention of hepatic coma documented in this encounter Discontinued Medications Medication Sig Discontinue Reason Start Date End Da te doxylamine 25 mg tablet tablet Take 0.5 Tablets by mouth at bedtime. 08/10/2021 01/06/2022 vit,horacio 74/iron/folic ( VITAMIN 1+1 ORAL) Take by mouth. 01/06/2022 documented as of this encounter Care Teams Sheet Metal Contractor Relationship Specialty Start Date End Date Martha Saavedra FNP [address] [place], [place] [address] [place] [address] PCP - General 02/01/17 09/15/22 documented as of this encounter
--- OUTSIDE RECORDS SUMMARY | 2024-07-06 18:49 | XMS_ITS | Encounter Summary ---
Author Organization [facility] Address [address] [place] [address] Care Team Providers Care Train Engineer Name Role Phone Martha Saavedra Noe Harjeet [facility] Primary Care Provi devon Reason for Visit * Reason Comments Routine Visit Encounter Details Date Type Department Care Team (Late st Contact Info) Description 01/27/2022 14:45 EDT Routine [facility] OBGYN Services - [facility] [address] [place] [address] Terry Douglas MD [address] [place] [phone] GA: 36w4d Social History Tobacco Use Types Packs/Day Years [...] Sign Reading Time Taken Comments Blood Pressure 122/70 01/27/2022 1445 EDT Pulse - - Temperature - - Respiratory Rate - - Oxygen Saturation - - Inhaled Oxygen Concentration - - Weight 70.6 kg (155 lb 9.6 oz) 01/27/2022 1445 E DT Height - - Body Mass Index 24.01 12/16/2021 1425 EDT documented in this encounter [...] Progress Notes * Terry Ovalle MD - 01/27/2022 4095 EDT Antepartum [facility] Note CC: Karin Dixon is a 26 y.o. @ 36w4d Subjective: Feeling amazing. Denies contractions, LOF, VB. +FM. Denies RAMOS, visual changes, CP/SOB, RUQ pain, LE swelling. OUD: 75 mg BID, denies s/sx of withdrawal Depression/anxiety: Struggling with housing, was asked to leave by her FOB's sister whose house sheis staying at. Left lower extremity swell: happening on both feet, did not tolerate stockings Objective: Vitals: BP: 122/70 Weight : 70.6 kg (155 lb 9.6 oz) Fundal Height (cm): 33 cm Heart Rate: 120 Movement: Present Presentation: Vertex Assessment/Plan: Karin Dixon is a 26 y.o. @ 36w4d presenting for routine visit. Supervision of high risk , antepartum - GBS negative - await spontaneous labor versus IOL at 39 weeks - FHT WNL today Episodic mood disorder (HCC-CMS) (HCC) - has not tried PM dosing Substance abuse (HCC-CMS) (HCC) - stable, no concerns - high risk labs on admission Poor growth affecting management of mother in third trimester, not applicable or unspecified fetus - resolved, no indication for early delivery - no need for additional antepartum testing RTC 02/03/[address] Pride. TERRY OVALLE MD 01/31/2022 8:19 Obstetrics & Gynecology, PGY-4 Pager [phone] MD Opiate Dependence Visit Chief Complaint: Opiate Dependence in Withdrawal Symptoms: denies Used drugs in last 2 weeks? No Seen substance abuse counselor in past 2 weeks? Yes Counselor: yes Seen school social worker in past 4 weeks? Yes UDS: not collected If the patient does not have a substance abuse counselor, she must see the school social worker or have a nurse from our office arrange counseling through [place] or [facility] Assessment: Stable TERRY OVALLE MD * Kelly Pride MD MPH - 01/27/2022 1445 EDT Attestation statement: I discussed the patient with the resident/fellow at the time of the visit. [place]wengree with the findings and the plan of care documented in the resident's/fellow's note. documented in this encounter Miscellaneous Notes * Assessment & Plan Note - Terry Ovalle MD - 01/31/2022 0818 EDT Associated Problem(s): Poor growth affecting management of mother in third trimester, not applicable or unspecified fetus (Resolved 06/08/2022) - resolved, no indication for early delivery - no need for additional antepartum testing * Assessment & Plan Note - Terry Ovalle MD - 01/31/2022 0818 EDT Associated Problem(s): Substance abuse ([facility]) - stable, no concerns - high risk labs on admission * Assessment & Plan Note - Terry Ovalle MD - 01/31/2022 0818 EDT Associated Problem(s): Episodic mood disorder ([facility]) - has not tried PM dosing * Assessment & Plan Note - Terry Ovalle MD - 01/31/2022 0817 EDT Associated Problem(s): Supervision of high risk , antepartum (Resolved 06/08/2022) - GBS negative - await spontaneous labor versus IOL at 39 weeks - FHT WNL today documented in this encounter Plan of Treatment Not on file documented as of this encounter Visit Diagnoses Diagnosis Supervision of high risk , antepartum- Primary Episodic mood disorder (HCC-CMS) Unspecified episodic mood disorder Substance abuse (HCC-CMS) Other, mixed, or unspecified nondependent drug abuse, unspecified Poor growth affecting management of mother in third trimester, not applicable or unspecified fetus documented in this encounter Care Teams Train Engineer Relationship Specialty Start Date End Date Martha Saavedra FNP [address] [place] [address] [address] [place] [address] PCP - General 02/01/17 09/15/22 documented as of this encounter
--- OUTSIDE RECORDS SUMMARY | 2024-07-06 18:49 | XMS_ITS | Encounter Summary ---
Author Organization [facility] Address [address] [place] [address] Care Team Providers Care Music Supervisor Name Role Phone Martha Saavedra Noe Harjeet [facility] Primary Care Provi devon Reason for Visit * Reason Comments Social Work Encounter Details Date Type Department Care Team (Late st Contact Info) Description 12/28/2021 Community Health Team [facility] OBGYN Services - [address] [phone] Jeannette Post Social History Tobacco Use Types [...] encounter Progress Notes * Jeannette Post - 12/28/2021 1326 EDT SUZANNE left a VM with the goal of providing transportation support. TC from patient confirming she has a ride to this week's appointment, and requests a gas card (mailed 12/28). SUZANNE called [facility] to schedule Medicaid cab rides and patient is not enrolled. Patient needs to call [facility]([phone]) to enroll - this will take 3-5 days while they complete the DMV check. SW texted and left a VM with the patient notifying her of the above and encouraging her to call [facility] if possible to begin the enrollment. [facility] Total Time: 15 minutes phone, 20 minutes care coordination, 10 minutes charting Referral: GMT Follow up: ongoing Status: Active documented in this encounter Plan of Treatment Not on file documented as of this encounter Visit Diagnoses Not on filedocumented in this encounter Care Teams Music Supervisor Relationship Specialty Start Date End Date Martha Saavedra FNP [address] [place], [place] [address] [place] [address] PCP - General 02/01/17 09/15/22 documented as of this encounter
--- OUTSIDE RECORDS SUMMARY | 2024-07-06 18:49 | XMS_ITS | Encounter Summary ---
Author Organization [facility] Address [address] [place] [address] Care Team Providers Care Mash Tub Cooker Name Role Phone Martha Saavedra [facility] Primary Care Provi devon Reason for Referral * OPHTHALMIC PHOTOGRAPHER (Routine/Next Available) - Closed Specialty Diagnoses / Procedures Referred By Ferny dubose Referred To Contact Diagnoses Poor growth affecting management of mother in third trimester, not applicable or unspecified fetus Procedures US OB FOLLOWUP Kelly Pride MD MPH Phone: tel: fax: LONG TERM Referral ID Status Reason Start Date Expiration Date Visits Re quested Visits Authorized [id number] Closed 12/19/2021 2 2 Reason for Visit * Reason Comments Routine Visit * Consult (Routine) - Order Cancelled Specialty Diagnoses / Procedures Referred By Ferny dubose Referred To Contact Obstetrics Diagnoses Poor growth affecting management of mother in third trimester, single or unspecified fetus Terry Douglas MD Phone: tel: fax: [facility] Obstetrics & Midwifery - [facility] [address] [place] [address] Phone: tel: fax: Referral ID Status Reason Start Date Expiration Date Visits Requested Visits Authorized [id number] Order Cancelled Specialty Services Required 12/09/2021 1 1 Encounter Details Date Type Department Care Team (Late st Contact Info) Description 12/16/2021 14:15 EDT Routine [facility] OBGYN Services - [address] [address] Terry Douglas MD [address] [place] [phone] GA: 30w4d Social History Tobacco Use Types Packs/Day Years [...] Sign Reading Time Taken Comments Blood Pressure 132/74 12/16/2021 1425 EDT Pulse - - Temperature - - Respiratory Rate - - Oxygen Saturation - - Inhaled Oxygen Concentration - - Weight 63.4 kg (139 lb 12.8 oz) 12/16/2021 1425 EDT Height 171.5 cm (5' 7.5) 12/16/2021 1425 EDT Body Mass Index 21.57 12/16/2021 1425 EDT documented in this encounter [...] Progress Notes * Terry Ovalle MD - 12/16/2021 1415 EDT Antepartum [facility] Clinic Note CC: Karin Dixon is a 26 y.o. @ 30w4d Subjective: Feeling overall well today but is frustrated with DCF. Feels like they have been all over her case. Denies contractions, LOF, VB. +FM. Denies RAMOS, visual changes, CP/SOB, RUQ pain. Continues to take her methadone, denies s/sx of withdrawal. Denies relapsing. Already had her NST today. Objective: Vitals: BP: 132/74 Height: 171.5 cm (67.5) Weight : 63.4 kg (139 lb 12.8 oz) BMI: 21.618 Movement: Present Assessment/Plan: Karin Dixon is a 26 y.o. @ 30w4d presenting for routine visit. Supervision of high risk , antepartum - up to date on routine care Substance abuse ([facility]) ([facility]) - no s/sx of withdrawal - Growth US ordered for q3 wk, next due 12/30 at time of BPP - Methadone split dosing - Denies relapse - Recommending good communication with DCF and to continue to come to appointments for OB and OUD care Poor growth affecting management of mother in third trimester, not applicable or unspecified fetus - NST completed today - BPP/NSTs to start next visit, 12/23 - Growth US next due ton 12/30, ordered RTC [address] Pride. TERRY OVALLE MD 12/19/2021 17:31 Obstetrics & Gynecology, PGY-4 Pager [phone] * Kelly Pride MD MPH - 12/16/2021 1415 EDT Attestation statement: I discussed the patient with the resident/fellow at the time of the visit. Iagree with the findings and the plan of care documented in the resident's/fellow's note. documented in this encounter Miscellaneous Notes * Assessment & Plan Note - Terry Ovalle MD - 12/19/2021 1730 EDT Associated Problem(s): Poor growth affecting management of mother in third trimester, not applicable or unspecified fetus (Resolved 06/08/2022) - NST completed today - BPP/NSTs to start next visit, 12/23 - Growth US next due ton 12/30, ordered * Assessment & Plan Note - Terry Ovalle MD - 12/19/2021 1726 EDT Associated Problem(s): Substance abuse ([facility]) - no s/sx of withdrawal - Growth US ordered for q3 wk, next due 12/30 at time of BPP - Methadone split dosing - Denies relapse - Recommending good communication with DCF and to continue to come to appointments for OB and OUD care * Assessment & Plan Note - Terry Ovalle MD - 12/19/2021 1726 EDT Associated Problem(s): Supervision of high risk , antepartum (Resolved 06/08/2022) - up to date on routine care documented in this encounter Plan of Treatment Not on file documented as of this encounter Results * US OB FOLLOWUP [...] (oz) ?? 5 oz EFW by: ?Hadlock ([id number]) Extended Bag Tester 7.9 mm Head / Face / Neck [...] gestational age and by position Impression ========= 29089 Follow-up obstetrical ultrasound This is a paiz gestation. biometry is consistent with prior dating with EFW at the 22% Except where noted above, the anatomy was not reviewed in detail as this is a follow-up study and the anatomy was previously assessed. Normal fluid and movement are noted. [address]141 Biophysical Profile (including NST) See BPP score [...] EFW (oz) 5 oz EFW by: Hadlock ([id number]) Extended Bag Tester 7.9 mm Head / Face / Neck [...] 4% 255.1 12% 257.7 68% 50.5 6% 799724% 12/30/2021 32w 4d 81.7 50% 303.6 55% 281.6 38% 60.3 27% 51.13% 1914 23% 01/20/2022 35w 4d 88 55% 308.7 18% 312.4 47% 62.7 4% 55.7 5%2423 22% Method ====== Transabdominal ultrasound examination, [place] E10. View: Limited byadvanced gestational age and by position Impression ========= 52804 Follow-up obstetrical ultrasound This is a paiz gestation. biometry is consistent with prior dating with EFW at the 22% Except where noted above, the anatomy was not reviewed in detail asthis is a follow-up study and the anatomy was previously assessed. Normal fluid and movement are noted. [id number] Biophysical Profile (including NST) See BPP score above. Follow-up ======== Follow-up with weekly BPP's. DATE OF SERVICE: 01/20/2022 Kelly Pride MD MPH IMG US OB ORDERABLES F inal Result * US OB FOLLOWUP (12/30/2021 16:01 EDT) [...] (oz) ?? 4 oz EFW by: ?Hadlock ([id number]) Head / Face / Neck Cephalic index [...] E10. View: Limited by position Impression ========= 74240 Follow-up obstetrical ultrasound This is a paiz gestation. biometry is consistent with prior dating. Except where noted above, the anatomy was not reviewed in detail as this is a follow-up study and the anatomy was previously assessed. Normal fluid and movement are noted. 14702 Biophysical Profile (including NST) See BPP score [...] EFW (oz) 4 oz EFW by: Hadlock ([id number]) Head / Face / Neck Cephalic index [...] 4% 255.1 12% 257.7 68% 50.5 6% 867293% 12/30/2021 32w 4d 81.7 50% 303.6 55% 281.6 38% 60.3 27% 51.13% 1914 23% Method ====== Transabdominal ultrasound examination, [place] E10. View: Limited by fetalposition Impression ========= 17008 Follow-up obstetrical ultrasound This is a paiz gestation. biometry is consistent with prior dating. Except where noted above, the anatomy was not reviewed in detail asthis is a follow-up study and the anatomy was previously assessed. Normal fluid and movement are noted. 69837 Biophysical Profile (including NST) See BPP score above. Follow-up ======== growth restriction has resolved over last 2 scans. Follow up asclinically indicated. DATE OF SERVICE: 12/30/2021 Kelly Pride MD MPH IMG US OB ORDERABLES F inal Result documented in this encounter Visit Diagnoses Diagnosis Poor growth affecting management of mother in third trimester, not applicable or unspecified fetus- Primary Supervision of high risk , antepartum Substance abuse ([facility]) Other, mixed, or unspecified nondependent drug abuse, unspecified Poor growth affecting management of mother in third trimester, single or unspecified fetus Poor growth affecting management of mother in third trimester, single or unspecified fetus documented in this encounter Care Teams Mash Tub Cooker Relationship Specialty Start Date End Date Martha Saavedra FNP [address] [facility] [place] [address] PCP - General 02/01/17 09/15/22 documented as of this encounter
--- OUTSIDE RECORDS SUMMARY | 2024-07-06 18:49 | XMS_ITS | Encounter Summary ---
Author Organization [facility] Address [address] [place] [address] Care Team Providers Care Savings Teller Name Role Phone Martha Saavedra Noe Harjeet [facility] Primary Care Provi devon Reason for Visit * Reason Onset Date Comments Advice Only 01/21/2022 Encounter Details Date Type Department Care Team (Late st Contact Info) Description 01/21/2022 Telephone [facility] OBGYN Services - [facility] [address], [place] [id number] Chiara Diallo, [address] [place] [address] Advice Only Social History Tobacco [...] Miscellaneous Notes * Telephone Encounter - Keila Steve RN - 01/21/2022 1602 EDT TC from pharmacy, LM on nurses' VM, they confirm that current PNV usually covered by Medicaid is onbackorder, they placed Rx for cheapest available, will cost $4. [facility], obtained information on additional NDC numbers for PNV that are currently covered by insurance: [id number], [id number], [phone] and [phone]. TC to pharmacy, LM on with NDC information. Asked pharmacy to call office back with any questions or concerns. TC to pt, provided her with the pharmacy information. She will call with further issues. She statesthat she found letter she got at last appt, does not need letter faxed. * Telephone Encounter - Keila Steve RN - 01/21/2022 1341 EDT TC to pharmacy, Jax Faria, no answer after 5min, left message. Unsure if office received correct information from pt, would like to confirm, any PNV covered by pt's insurance is OK, usually Plus but any brand covered is fine. Asked pharmacy to call back with questions or more information. * Telephone Encounter - Irena Thomas - 01/21/2022 1136 EDT Pt calling in with 2 request: 1. She needs a letter faxed to [employer] stating that she is a high risk . 2. She went to go refill her prenatals at the pharmacy and they informed her that the kinds she hasbeen getting were discontinued. They offered her another brand but these were not covered by insurance Pt would like a call back to discuss this at [phone] documented in this encounter Plan of Treatment Not on file documented as of this encounter Visit Diagnoses Not on filedocumented in this encounter Care Teams Savings Teller Relationship Specialty Start Date End Date Martha Saavedra FNP [address] [facility] [place] [address] PCP - General 02/01/17 09/15/22 documented as of this encounter
--- OUTSIDE RECORDS SUMMARY | 2024-07-06 18:49 | XMS_ITS | Encounter Summary ---
Author Organization [facility] Address [address] [place] [address] Care Team Providers Care Burlap Bag Sewer Name Role Phone QuentinMartha [facility] Primary Care Provi devon Reason for Referral * CLIENT ENGAGEMENT SPECIALIST (Routine/Next Available) - Order Cancelled Specialty Diagnoses / Procedures Referred By Contac t Referred To Contact Diagnoses Poor growth affecting management of mother in third trimester, single or unspecified fetus Procedures US OB BIOPHYSICAL PROFILE WITH NON STRESS Skye Douglas MD Phone: tel: fax: DETENTION Referral ID Status Reason Start Date Expiration Date V isits Requested Visits Authorized [id number] Order Cancelled 12/09/2021 11 11 Reason for Visit * CLIENT ENGAGEMENT SPECIALIST (Routine/Next Available) - Order Cancelled Specialty Diagnoses / Procedures Referred By Contaudi t Referred To Contact Diagnoses Poor growth affecting management of mother in third trimester, single or unspecified fetus Procedures US OB BIOPHYSICAL PROFILE WITH NON STRESS Skye Douglas MD Phone: tel: fax: DETENTION Referral ID Status Reason Start Date Expiration Date V isits Requested Visits Authorized [id number] Order Cancelled 12/09/2021 11 11 Encounter Details Date Type Department Care Team (Latest Contact Info) Description 12/23/2021 8:18 EDT - 12/23/2021 23:59 EDT Hospital Encounter [facility] Obstetrics Services - [address] [address] Poor growth affecting management of mother in [...] OB BIOPHYSICAL PROFILE WITH NON STRESS Routine 12/23/2021 9:33 EDT Poor growth affecting management of mother in third trimester, single or unspecified fetus documented in this encounter Results * US OB BIOPHYSICAL PROFILE WITH NON STRESS (12/23/2021 9:33 EDT) Anatomical Region Laterality Modality Pelvis Ultrasound 12/23/2021 8:58 EDT Narrative 12/23/2021 10:03 EDT Indication ======== growth restriction - Maternal [...] ====== LMP on: ?05/12/2021 GA by LMP ??32 w + 1 d MYCHAL by LMP : ? 02/16/2022 Previous Ultrasound on: ?08/10/2021 Type of prior assessment: ??CRL U/S measurement at prior assessment date ?? 56.3 mm GA by previous U/S 31 w + 4 d MYCHAL by previous Ultrasound: ?02/20/2022 Method of dating: ??Restore dating from previous exam Previous dating: ?? based on ultrasound (CRL), selected on 11/13/2021 Assigned GA of previous dating 31 w + 4 d Agreed MYCHAL of previous datin02/20/2022 Assigned: ??based on ultrasound (CRL), selected on 11/13/2021 Assigned GA ?31 w + 4 d Assigned MYCHAL: ??02/20/2022 General Evaluation Cardiac activity Present. FHR 123 bpm. movements: visualized. Presentation: cephalic Placenta: anterior Amniotic Fluid Assessment Amount of AF: normal MVP 5.1 cm. CHAS 12.1 cm. Q1 5.1 cm, Q2 0.0 cm, Q3 2.1 cm, Q4 4.9 cm Anatomy sex: male Biophysical Profile 2: breathing movements 2: Gross body movements 2: tone 2: Amniotic fluid volume NST: reactive 03/21 Biophysical profile score Interpretation: normal DVD number 2982, Duration: 21minutes Growth Overview Exam date ??GA ??BPD (mm) ?HC (mm) AC (mm) FL (mm) HL (mm) EFW (g) 11/13/2021 ??25w 6d ??52.9 ?<1% 214.8 ?? 4% ??193.8 ?? 4% ??40.5 ?2% ??39.7 ?5% ??607 <1% 12/06/2021 29w 1d ??68.3 ?4% ??255.1 ?? 12% 257.7 ?? 68% 50.5 ?6% ??1257 ?14% Method ====== Voluson E10, Transabdominal ultrasound examination. View: Sufficient Impression ========= [id number] Biophysical Profile (including NST) This is a paiz . Please see BPP score above. Follow-up ======== Follow-up with weekly BPPs and growth every 3 weeks. DATE OF SERVICE: 12/23/2021 Procedure Note Aleksey Gerber MD - 12/23/2021 Indication ======== growth restriction - Maternal substance [...] ====== LMP on: 05/12/2021 GA by LMP 32 w + 1 d MYCHAL by LMP : 02/16/2022 Previous Ultrasound on: 08/10/2021 Type of prior assessment: CRL U/S measurement at prior assessment date 56.3 mm GA by previous U/S 31 w + 4 d MYCHAL by previous Ultrasound: 02/20/2022 Method of dating: Restore dating from previous exam Previous dating: based on ultrasound (CRL), selected on 11/13/2021 Assigned GA of previous dating 31 w + 4 d Agreed MYCHAL of previous datin02/20/2022 Assigned: based on ultrasound (CRL), selected on 11/13/2021 Assigned GA 31 w + 4 d Assigned MYCHAL: 02/20/2022 General Evaluation Cardiac activity Present. FHR 123 bpm. movements: visualized.Presentation: cephalic Placenta: anterior Amniotic Fluid Assessment Amount of AF: normal MVP 5.1 cm. CHAS 12.1 cm. Q1 5.1 cm, Q2 0.0 cm, Q3 2.1 cm, Q4 4.9 cm Anatomy sex: male Biophysical Profile 2: breathing movements 2: Gross body movements 2: tone 2: Amniotic fluid volume NST: reactive 10/10 Biophysical profile score Interpretation: normal DVD number 2982, Duration: 21minutes Growth Overview Exam date GA BPD (mm) HC (mm) AC (mm) FL (mm) HL (mm) EFW (g) 11/13/2021 25w 6d 52.9 <1% 214.8 4% 193.8 4% 40.5 2% 39.75% 607 <1% 12/06/2021 29w 1d 68.3 4% 255.1 12% 257.7 68% 50.5 6% 672625% Method ====== Voluson E10, Transabdominal ultrasound examination. View: Sufficient Impression ========= [id number] Biophysical Profile (including NST) This is a paiz . Please see BPP score above. Follow-up ======== Follow-up with weekly BPPs and growth every 3 weeks. DATE OF SERVICE: 12/23/2021 us Skye Douglas MD IMG OB ORDERABLES Final Re sult documented in this encounter Visit Diagnoses Diagnosis Poor growth affecting management of mother in third trimester, single or unspecified fetus documented in this encounter Care Teams Burlap Bag Sewer Relationship Specialty Start Date End Date Martha Saavedra FNP [address] [facility],[address] [place] [address] PCP - General 02/01/17 09/15/22 documented as of this encounter
--- OUTSIDE RECORDS SUMMARY | 2024-07-06 18:49 | XMS_ITS | Encounter Summary ---
Author Organization [facility] Address [address] [place] [address] Care Team Providers Care Hay Buckler Name Role Phone Martha Saavedra [facility] Primary Care Provi devon None, Provider Primary Care Provider UnavailTrevon Gould MD Primary Care Provider Eliza Rain MD Unavailable [phone] Dona Casper [facility] Unavailable Reason for Visit * Reason Onset Date Comments Advice Only 01/04/2022 Encounter Details Date Type Department Care Team (Late st Contact Info) Description 01/04/2022 Telephone [facility] OBGYN Services - [address] [address] Skye Douglas MD [address] [place] [phone] Advice Only Social History Tobacco Use Types [...] Kenzie Soares RN documented in this encounter Miscellaneous Notes * Telephone Encounter - Irena Thomas - 01/04/2022 1255 EDT Pt calling in explaining she doesn't have a ride set up for her appointments on 01/06. She is hoping someone can give her a call back to help get this set up [phone] documented in this encounter Plan of Treatment Not on file documented as of this encounter Visit Diagnoses Not on filedocumented in this encounter Care Teams Hay Buckler Relationship Specialty Start Date End Date Martha Saavedra FNP [address] [facility] [address] [place], [place] [address] PCP - General 02/01/17 09/15/22 None, Provider PCP - General 09/16/22 05/23/23 Trevon Boyd MD [address] [place] [address] [address] [place] [address] PCP - General Family Medicine - Primary Care 05/24/23 Eliza Rain MD [address] [place] [address] [address] [place] [address] Infectious Disease 05/24/23 Dona Casper NP CNM [address] [place] [address], [address] [place] [address] Microbiology Teacher Midwifery 05/24/23 documented as of this encounter
--- OUTSIDE RECORDS SUMMARY | 2024-07-06 18:50 | XMS_ITS | Encounter Summary ---
Author Organization [facility] Address [address] [place] [address] Care Team Providers Care Bellman Captain Name Role Phone Martha Saavedra Noe Harjeet [facility] Primary Care Provi devon Reason for Visit * Auth/Cert Specialty Diagnoses / Procedures Referred By Contac t Referred To Contact Diagnoses labor in second trimester with delivery in second trimester, fetus 1 h/a, dehydration Referral ID Status Reason Start Date Expiration Date Visits Re quested Visits Authorized [id number] 1 1 Encounter Details Date Type Department Care Team (Late st Contact Info) Description 11/13/2021 23:59 EDT Anesthesia Event [facility] [address] [place], [place] [address] Ezio Stone MD [address] [place] [phone] Anesthesia Record Procedure Summary Procedure Name Responsible Anesthesiologist Anesthesia Start Time Anesthesia Stop Time LABOR CONSULT Events No events on file. Meds * Agents No agents on file. * Blood No blood administrations on file. Lines, Drains, and Airways No LDAs on file. documented in this encounter Social History Tobacco Use Types Packs/Day Years Used Date Smoking Tobacco: Never Smokeless Tobacco: Never Alcohol Use Standard Drinks/Week Comments Not Currently 0 (1 standard drink = 0.6 oz pur e alcohol) sporadic in past Interpersonal Safety Answer Date Record ed Physically [...] hearing? Answer Date of Assessment Author No 10/11/2021 22:00 EDT Nakul Goldberg RN * Because of a physical, mental, or emotional condition, does this person have difficulty doing errands alone such as visiting a doctor's office or shopping? Answer Date of Assessment Author No 08/03/2021 12:59 EST documented as of this encounter Mental Status * Because of a physical, mental, or emotional condition, does this person have serious difficulty concentrating, remembering, or making decisions? Answer Entry Date Author No 08/03/2021 12:59 EST documented in this encounter OR Notes * Anesthesia Preprocedure Evaluation - Ezio Stone MD - 11/13/2021 1522 EDT Anesthesia Preprocedure Evaluation Patient Medical History, including Anesthesia History reviewed. Chart and Nursing Notes reviewed, including NPO status and Medication History. Additional ROS/History Findings: 26 year old at 25w6d. Initially presented to OSH with c/o RAMOS, persistent nausea/emesis, anddehydration and Cat 2 FHT noteable for late decelerations and intermittent minimal variability. High risk complicated by history of polysubstance abuse on Methadone with UDS positive for methadone and cocaine. Discussed risks/benefits and consented patient for epidural, spinal/CSE, general anesthesia, TAP blocks for post op pain control. Allergies Allergen Reactions ??? Flagyl [Metronidazole] Patient is now. (+) complications of , prior IUFD (-) pre-eclampsia, obstetrical hemorrhage, anticoagulation therapy Past Medical History: Diagnosis Date ??? Depression ??? Hepatitis ??? Trauma Relevant Problems /Renal (+) Chronic hepatitis C virus infection (HCC-[facility]) (HCC) Clinical information reviewed: Physical Exam Airway Mallampati: II TM distance: >3 FB Cardiovascular - normal exam Dental - normal exam Pulmonary - normal exam Abdominal Anesthesia Plan ASA 2 Anesthesia Type - neuraxial block (GE as backup to Spinal anesthesia) - via spinal Anesthesia plan and risks discussed. Informed consent obtained from patient. Specific risks discussed were bleeding, dental injury, incomplete block, nausea, vomiting, nerve damage, headache and other. Code status discussed? No The preoperative history and physical which was performed within 30 days of this procedure, has been reviewed and the clinically appropriate elements of the physical examination have been repeated. There are no changes to the documented history and physical or, if so, such changes are documented inthis note Obstetrics patient pre-procedure anesthesia evaluation included a discussion of spinal, general, and TAP block mode(s) of anesthesia. Risks discussed included: Bleeding, infection, nerve injury, spinal headaches, high spinals, hematomas, and low blood pressures with under-perfusion. The possibilities of inadequate epidural/block, block failure, and possible block replacement were also discussed. All patient's questions were answered to their satisfaction. PAT Note Notes from 10/14/21 through 11/13/21 No notes of this type exist for this encounter. documented in this encounter Plan of Treatment Not on file documented as of this encounter Visit Diagnoses Not on filedocumented in this encounter Care Teams Bellman Captain Relationship Specialty Start Date End Date Martha Saavedra FNP [address] [place], [place] [address] [place] [address] PCP - General 02/01/17 09/15/22 documented as of this encounter
--- OUTSIDE RECORDS SUMMARY | 2024-07-06 18:50 | XMS_ITS | Encounter Summary ---
Author Organization [facility] Address [address] [place] [address] Care Team Providers Care Ice Cream Dipper Name Role Phone Martha Saavedra Noe Harjeet [facility] Primary Care Provi devon Encounter Details Date Type Department Care Team (Latest Contact Info) Description 10/06/2021 Travel Social History Tobacco Use Types Packs/Day [...] suspected to have Coronavirus/COVID-19? No / Unsure 10/06/2021 11:55 EDT documented as of this encounter Functional Status * Are you deaf or do you have serious difficulty hearing? Answer Date of Assessment Author No 09/14/2021 19:37 Masoud Grullon, ALLEN * Because of a physical, mental, or [...] 08/03/2021 12:59 EST documented in this encounter Plan of Treatment Not on file documented as of this encounter Visit Diagnoses Not on filedocumented in this encounter Care Teams Ice Cream Dipper Relationship Specialty Start Date End Date Martha Saavedra FNP [address] [place] [address],[address] [place] [address] PCP - General 02/01/17 09/15/22 documented as of this encounter
--- OUTSIDE RECORDS SUMMARY | 2024-07-06 18:50 | XMS_ITS | Encounter Summary ---
Author Organization [facility] Address [address] [place] [address] Care Team Providers Care Director Of Archives Name Role Phone Martha Saavedra [facility] Primary Care Provi devon Reason for Referral * DIESEL TRUCK TECHNICIAN (Routine/Next Available) - Authorization Not Required Specialty Diagnoses / Procedures Referred By Contac t Referred To Contact Diagnoses Supervision of high risk in second trimester Procedures OB ROUTINE (GREATER THAN 14 WEEKS) Dona Casper NP CNM Phone: tel: fax: [facility] Referral ID Status Reason Start Date Expiration Date Visits Requested Visits Authorized [id number] Authorization Not Required 09/21/2021 1 1 Reason for Visit * DIESEL TRUCK TECHNICIAN (Routine/Next Available) - Authorization Not Required Specialty Diagnoses / Procedures Referred By Contac t Referred To Contact Diagnoses Supervision of high risk in second trimester Procedures OB ROUTINE (GREATER THAN 14 WEEKS) Dona Casper NP CNM Phone: tel: fax: [facility] Referral ID Status Reason Start Date Expiration Date Visits Requested Visits Authorized [id number] Authorization Not Required 09/21/2021 1 1 Encounter Details Date Type Department Care Team (Latest Contact Info) Description 10/06/2021 10:30 EDT - 10/06/2021 23:59 EDT Hospital Encounter [facility] Ultrasound [address] [place] [address] Supervision of high risk in second trimester Discharge Disposition: Home or Self Care Social [...] In the last 10 days, have patrick u been in contact with someone who was confirmed or suspected to have Coronavirus/COVID-19? No / Unsure 10/06/2021 11:55 EDT documented as of this encounter Functional Status * Are you deaf or do you have serious difficulty hearing? Answer Date of Assessment Author No 09/14/2021 19:37 EDT Masoud Wiggins RN * Because of a physical, mental, [...] 08/03/2021 12:59 EST documented in this encounter Medications at Time of Discharge methadone (DOLOPHINE) 10 mg tablet Take 13.5 Tablets by mouth daily. doxylamine 25 mg tablet tablet Take 0.5 Tablets by mouth at bedtime. 30 Tablet 1 08/10/2021 01/06/2022 vit,horacio 74/iron/folic ( VITAMIN 1+1 ORAL) Take by mouth. 01/06/2022 documented as of this encounter Discharge Disposition Disposition Code Departure Means Destination Home or Self Care documented in this encounter Plan of Treatment Not on file documented as of this encounter Procedures Procedure Name Priority Date/Time Associated Diagnosis Comments US OB ROUTINE (GREATER THAN 14 WEEKS) Routine 10/06/2021 11:55 EDT Supervision of high risk in second trimester documented in this encounter Results * US OB ROUTINE (GREATER THAN 14 WEEKS) (10/06/2021 11:55 EDT) Anatomical Region Laterality Modality Pelvis Ultrasound Narrative 10/06/2021 12:44 EDT Indication ======== Screening ========= Paiz . Number of fetuses: 1 Dating ====== ? Date ?Details ? Gest. age ?? MYCHAL U/S ?10/06/2021 ?? based upon AC, BPD, Femur, HC ? 20 w + 0 d ??02/23/2022 Assigned dating ?Dating performed on 08/10/2021, based on ultrasound (CRL) ?20 w + 3 d ??02/20/2022 General Evaluation Cardiac activity present. FHR 131 bpm. movements visualized. Presentation transverse, variable . Placenta anterior with slight fundal wrap. Umbilical cord Cord vessels: normal. Insertion site: normal insertion. Amniotic fluid Amount of AF: normal . Biometry Main Biometry: BPD ?47.0 ?mm ??20w 1d ??40% Hadlock HC ? 175.5 ?? mm ??20w 0d ??25% Hadlock Cerebellum tr ??21.3 ?mm ??20w 2d ??61% Nicolaides AC ? 157.3 ?? mm ??20w 6d ??59% Hadlock Femur ?29.5 ?mm ??19w 1d ??7% ??Hadlock Humerus ?28.7 ?mm ??20% Murillo HC / AC ?1.12 ?21% Nicolaides Weight Calculation: EFW ?330 g EFW (lb,oz) ?0 lb 12 oz EFW by ? Hadlock ([id number]) Head / Face / Neck Biometry: Medical Records Auditor ? 9.4 mm CM ? 4.8 mm ??40% Nicolaides Nuchal fold ?4.6 mm Extremities / Bony Struc Biometry: FL / BPD ?? 0.63 ?2% ??Hadlock FL / HC ?0.17 ?2% ??Hadlock FL / AC ?0.19 ?<1% Hadlock Anatomy The following structures appear normal: Head / Neck ?Cranium. Lateral ventricles. Choroid plexus. Midline falx. Cavum septi pellucidi. Cerebellum. Cisterna magna. Heart / Thorax 4-chamber view. RVOT view. Abdomen ?Abdominal wall. Cord insertion. Stomach. Bladder. Spine ??Cervical spine. Thoracic spine. Lumbar spine. Sacral spine. Extremities / Skeleton Legs. The following structures could not be adequately visualized: Face ?? Lips. Heart / Thorax LVOT view. The following structures could not be visualized: Abdomen ?Kidneys. Extremities / Skeleton Left hand. Maternal Structures Uterus Normal ? Appearance: Cervix Normal Right Ovary ?not visualized, but adnexa appears normal Left Ovary not visualized, but adnexa appears normal Technique ======== [facility] [id number]. View: Transabdominal ultrasound examination Impression ========= [id number] Obstetrical ultrasound with and maternal evaluation This is a paiz gestation. Biometry is consistent with early ultrasound dating. The kidneys and left hand are not visualized. The lip and LVOT are suboptimally visualized. Otherwise, anatomy appears normal as noted above; however, ultrasound cannot detect all anomalies. There is trunk and extremity movement noted. The amniotic fluid volume appears normal. Follow-up ======== Follow up 1-2 weeks to reevaluate the poorly seen anatomy. Procedure Note Beverly Gu MD - 10/06/2021 Indication ======== Screening ========= Paiz . Number of fetuses: 1 Dating ====== Date Details Gest. age MYCHAL U/S 10/06/2021 based upon AC, BPD, Femur, HC 20 w + 0 d02/23/2022 Assigned dating Dating performed on 08/10/2021, based on ultrasound(CRL) 20 w + 3 d 02/20/2022 General Evaluation Cardiac activity present. FHR 131 bpm. movements visualized. Presentation transverse, variable . Placenta anterior with slight fundal wrap. Umbilical cord Cord vessels: normal. Insertion site: normal insertion. Amniotic fluid Amount of AF: normal . Biometry Main Biometry: BPD 47.0 mm 20w 1d 40% Hadlock HC 175.5 mm 20w 0d 25% Hadlock Cerebellum tr 21.3 mm 20w 2d 61% Nicolaides AC 157.3 mm 20w 6d 59% Hadlock Femur 29.5 mm 19w 1d 7% Hadlock Humerus 28.7 mm 20% Murillo HC / AC 1.12 21% Nicolaides Weight Calculation: EFW 330 g EFW (lb,oz) 0 lb 12 oz EFW by Hadlock ([id number]) Head / Face / Neck Biometry: Medical Records Auditor 9.4 mm CM 4.8 mm 40% Nicolaides Nuchal fold 4.6 mm Extremities / Bony Struc Biometry: FL / BPD 0.63 2% Hadlock FL / HC 0.17 2% Hadlock FL / AC 0.19 <1% Hadlock Anatomy The following structures appear normal: Head / Neck Cranium. Lateral ventricles. Choroid plexus. Midline falx.Cavum septi pellucidi. Cerebellum. Cisterna magna. Heart / Thorax 4-chamber view. RVOT view. Abdomen Abdominal wall. Cord insertion. Stomach. Bladder. Spine Cervical spine. Thoracic spine. Lumbar spine. Sacral spine. Extremities / Skeleton Legs. The following structures could not be adequately visualized: Face Lips. Heart / Thorax LVOT view. The following structures could not be visualized: Abdomen Kidneys. Extremities / Skeleton Left hand. Maternal Structures Uterus Normal Appearance: Cervix Normal Right Ovary not visualized, but adnexa appears normal Left Ovary not visualized, but adnexa appears normal Technique ======== [facility] [id number]. View: Transabdominal ultrasound examination Impression ========= [id number] Obstetrical ultrasound with and maternal evaluation This is a paiz gestation. Biometry is consistent with early ultrasound dating. The kidneys and lefthand are not visualized. The lip and LVOT are suboptimally visualized.Otherwise, anatomy appears normal as noted above; however, ultrasound cannot detectall anomalies. There is trunk and extremity movement noted.The amniotic fluid volume appears normal. Follow-up ======== Follow up 1-2 weeks to reevaluate the poorly seen anatomy. us Dona Casper NP, CNM IMG US OB ORDER SWAPNIL Final Result documented in this encounter Visit Diagnoses Diagnosis Supervision of high risk in second trimester Unspecified high-risk documented in this encounter Care Teams Director Of Archives Relationship Specialty Start Date End Date Martha Saavedra FNP [address] [facility] [place] [address] PCP - General 02/01/17 09/15/22 documented as of this encounter
--- OUTSIDE RECORDS SUMMARY | 2024-07-06 18:50 | XMS_ITS | Encounter Summary ---
Author Organization [facility] Address [address] [place] [address] Care Team Providers Care Research Test Engine Operator Name Role Phone Martha Saavedra Noe Harjeet [facility] Primary Care Provi devon Encounter Details Date Type Department Care Team (Latest Contact Info) Description 10/11/2021 Travel Social History Tobacco Use Types Packs/Day [...] was confirmed or suspected to have Coronavirus/COVID-19? Yes 10/11/2021 22:02 EDT documented as of this encounter Functional [...] Diagnoses Not on filedocumented in this encounter Additional Health Concerns Infection Onset Date Last Indicated Resolved Time R/O COVID-19 10/11/2021 10/11/2021 10/16/2021 22:1 7 EDT documented as of this encounter Care Teams Research Test Engine Operator Relationship Specialty Start Date End Date Martha Saavedra FNP [address] [facility] [place] [address] PCP - General 02/01/17 09/15/22 documented as of this encounter
--- OUTSIDE RECORDS SUMMARY | 2024-07-06 18:50 | XMS_ITS | Encounter Summary ---
Author Organization [facility] Address [address] [place] [address] Care Team Providers Care Flyer Builder Name Role Phone QuentinMartha [facility] Primary Care Provi devon Reason for Referral * INCIDENT RESPONSE ANALYST (Routine/Next Available) - Authorization Not Required Specialty Diagnoses / Procedures Referred By [facility] t Referred To Contact Diagnoses Supervision of high risk in second trimester Procedures OB ROUTINE (GREATER THAN 14 WEEKS) Dona Casper NP CNM Phone: tel: fax: [facility] Referral ID Status Reason Start Date Expiration Date Visits Requested Visits Authorized [id number] Authorization Not Required 09/21/2021 1 1 Reason for Visit * Reason Comments Routine Visit Encounter Details Date Type Department Care Team (Late Contact Info) Description 09/21/2021 16:00 EDT Routine [facility] OBGYN [address] [place] [address] Dona Casper NP CNM [address] [facility] [place] [address] GA: 18w2d Social History Tobacco Use Types Packs/Day Years [...] suspected to have Coronavirus/COVID-19? No / Unsure 09/21/2021 16:07 EDT documented as of this encounter Last Filed Vital Signs Vital Sign Reading Time Taken Comments Blood Pressure 112/60 09/21/2021 1609 EDT Pulse - - Temperature - - Respiratory Rate - - Oxygen Saturation - - Inhaled Oxygen Concentration - - Weight 54.1 kg (119 lb 4.8 oz) 09/21/2021 1609 E DT Height 168.9 cm (5' 6.5) 09/21/2021 1609 EDT Body Mass Index 18.97 09/21/2021 1609 EDT documented in this encounter Functional Status [...] 08/03/2021 12:59 EST documented in this encounter Progress Notes * Dona Casper APRN - 09/21/2021 1600 EDT Chief Complaint Patient presents with ??? Routine Visit S: Karin Dixon is a 26 y.o. at 18w2d IUP here today for a visit. Concerns today: here with dear friend Ernestine. Since last visit - many life changes. No longer with FOB. Living in a hotel Housing security and food security issues. Remains in [place] with [employer]. Open to any and all supports. Called MADIHA on her own. Really wants to be successful and parent this baby. Overall doing well. Denies cramping, bleeding, LOF. IVAP labs reviewed. PreE risks reviewed - SES only Discussed cfDNA and carrier testing. Testing: completed and negative (WNL) Current Outpatient Medications: ??? doxylamine 25 mg tablet tablet, Take 0.5 Tablets by mouth at bedtime. (Patient not taking: Reported on 08/16/2021), Disp: 30 Tablet, Rfl: 1 ??? methadone (DOLOPHINE) 10 mg tablet, Take 140 mg by mouth daily., Disp: , Rfl: ??? vit,horacio 74/iron/folic ( VITAMIN 1+1 ORAL), Take by mouth., Disp: , Rfl: O: Vitals: BP: 112/60 Height: 168.9 cm (66.5) Weight : 54.1 kg (119 lb 4.8 oz) BMI: 19.009 Heart Rate: 145 A: 26 y.o. at 18w2d IUP 1. Supervision of high risk in second trimester US OB ROUTINE (GREATER THAN 14 WEEKS) 2. Chronic hepatitis C without hepatic coma (HCC-CMS) (HCC) 3. Substance abuse (HCC-CMS) (HCC) P: Ultrasound at 20 weeks Ordered for next visit. Second trimester precautions reviewed. Next AP visit in 2 weeks - right after US. Tammy Foreman in to see patient today. Sarah Armijo also in to see patient today. Releases signed. AP visit in 2 weeks with EV or CG right after US. Call/see sooner PRN. Dona Casper CNM, BANDER OPERATOR Certified Nurse Fitness Leader & Family Nurse Practitioner documented in this encounter Plan of Treatment Not on file documented as of this encounter Results * US OB ROUTINE [...] lb 12 oz EFW by ? 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 9.4 mm CM ? 4.8 mm [...] visualized, but adnexa appears normal Technique ======== [facility] [id number]. 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 View: Transabdominal ultrasound examination Impression ========= [id number] Obstetrical ultrasound with and maternal evaluation This [...] the poorly seen anatomy. us Dona Casper NP CNJose IMG US OB ORDER SWAPNIL Final Result documented in this encounter Visit Diagnoses Diagnosis Supervision of high risk in second trimester- Primary Unspecified high-risk Chronic hepatitis C without hepatic coma (HCC-CMS) Chronic hepatitis C without mention of hepatic coma Substance abuse (HCC-CMS) Other, mixed, or unspecified nondependent drug abuse, unspecified Supervision of high risk in second trimester Unspecified high-risk documented in this encounter Care Teams Flyer Builder Relationship Specialty Start Date End Date Martha Saavedra FNP [address] [facility],[address] [place] [address] PCP - General 02/01/17 09/15/22 documented as of this encounter
--- OUTSIDE RECORDS SUMMARY | 2024-07-06 18:50 | XMS_ITS | Encounter Summary ---
Author Organization [facility] Address [address] [place] [address] Care Team Providers Care Brand Communications Manager Name Role Phone Martha Saavedra Noe Cosby [facility] Primary Care Provi devon Reason for Visit * Reason Onset Date Comments Appointment Related 10/21/2021 Encounter Details Date Type Department Care Team (Late st Contact Info) Description 10/21/2021 Telephone [facility] OBGYN [address] [place], [place] [id number] Tammy Foreman [address] [facility] [address] [place] [address] Appointment Related Social History Tobacco Use Types [...] 08/03/2021 12:59 EST documented in this encounter Miscellaneous Notes * Telephone Encounter - Tammy Foreman - 10/21/2021 1343 EDT Called pt for f/u re ap supports; pt in counseling appt, agreement for pt to call [facility] to the [facility] and ap appts. Acid Tank Liner will contact pt as needed for scheduling. documented in this encounter Plan of Treatment Not on file documented as of this encounter Visit Diagnoses Not on filedocumented in this encounter Additional Health Concerns Infection Onset Date Last Indicated Resolved Time COVID-19 10/11/2021 10/11/2021 10/31/2021 22:1 5 EDT documented as of this encounter Care Teams Brand Communications Manager Relationship Specialty Start Date End Date Martha Saavedra FNP [address] [facility],[address] [place] [address] PCP - General 02/01/17 09/15/22 documented as of this encounter
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
--- OUTSIDE RECORDS SUMMARY | 2024-07-06 18:50 | XMS_ITS | Encounter Summary ---
Author Organization [facility] Address [address] [place] [address] Care Team Providers Care Nurse Esthetician Name Role Phone Martha Saavedra [facility] Primary Care Provi devon Reason for Visit * Reason Onset Date Comments 10/11/2021 has covid Encounter Details Date Type Department Care Team (Late st Contact Info) Description 10/11/2021 Telephone [facility] OBGYN [address] [place], [place] [address] Caitlin Joseph MD [address] [place] [address] (has covid ) Social History Tobacco Use Types Packs/Day [...] encounter Miscellaneous Notes * Telephone Encounter - Shruthi Driscoll RN - 10/11/2021 1343 EDT Pt tested positive for Covid with home test 3 x. Pt stated feels awful, has SOB, dizzy with standing, body aches loss of taste and smell. Pt was told to go to local urgent care for evaluation or the ED . Pt has transportation issues but was going to call potential rides. It was stress that she is high risk and should be seen. Pt understood and agreed. * Telephone Encounter - Elizabeth Mata - 10/11/2021 1323 EDT AP pt said she has COVID and has been really sick. Pt wondering what she can take documented in this encounter Plan of Treatment Not on file documented as of this encounter Visit Diagnoses Not on filedocumented in this encounter Care Teams Nurse Esthetician Relationship Specialty Start Date End Date Martha Saavedra FNP [address] [facility] [place] [address] PCP - General 02/01/17 09/15/22 documented as of this encounter
--- OUTSIDE RECORDS SUMMARY | 2024-07-06 18:50 | XMS_ITS | Encounter Summary ---
Author Organization [facility] Address [address] [place] [address] Care Team Providers Care Manager Of Care Name Role Phone Nel Saavedranavi [facility] Primary Care Provi devon Reason for Visit * Reason Onset Date Comments Patient Outreach 11/23/2021 Encounter Details Date Type Department Care Team (Late st Contact Info) Description 11/23/2021 Telephone [facility] - [facility] OBGYN [address] [place], [place] [phone] Tammy Foreman [address] [place] [address] [address] [place] [address] Patient Outreach Social History Tobacco [...] have money to get more. Sometimes true 12/2021 Interpersonal Safety Answer Date Record ed Physically [...] * Telephone Encounter - Tammy Foreman - 11/23/2021 1340 EDT Metal Patternmaker Apprentice called pt, no ans, no ability to leave message, staff writer will continue to outreach to pt to offer support. documented in this encounter Plan of Treatment Not on file documented as of this encounter Visit Diagnoses Not on filedocumented in this encounter Care Teams Manager Of Care Relationship Specialty Start Date End Date Martha Saavedra FNP [address] [facility] [place] [address] PCP - General 02/01/17 09/15/22 documented as of this encounter
--- OUTSIDE RECORDS SUMMARY | 2024-07-06 18:50 | XMS_ITS | Encounter Summary ---
Author Organization [facility] Address [address] [place] [address] Care Team Providers Care Box Toe Maker Name Role Phone Martha Saavedra Noe Harjeet [facility] Primary Care Provi devon Reason for Visit * Reason Onset Date Comments Patient Education 09/24/2021 Encounter Details Date Type Department Care Team (Late st Contact Info) Description 09/24/2021 Telephone [facility] [address] [place], [place] [id number] Tammy Foreman [address] [place] [address] [address] [place] [address] Patient Education Social History Tobacco Use Types Packs/Day Years [...] * Telephone Encounter - Tammy Foreman - 09/24/2021 1501 EDT Contracts Administrator called, valentina for pt regarding GMT for transportation [phone]. documented in this encounter Plan of Treatment Not on file documented as of this encounter Visit Diagnoses Not on filedocumented in this encounter Care Teams Box Toe Maker Relationship Specialty Start Date End Date Martha Saavedra FNP [address] [place], [place] [address] [place] [address] PCP - General 02/01/17 09/15/22 documented as of this encounter
--- OUTSIDE RECORDS SUMMARY | 2024-07-06 18:50 | XMS_ITS | Encounter Summary ---
Author Organization [facility] Address [address] [place] [address] Care Team Providers Care Lime Sludge Mixer Name Role Phone Martha Saavedra Noe Cosby [facility] Primary Care Provi devon Encounter Details Date Type Department Care Team (Latest Contact Info) Description 10/21/2021 10:08 EDT - 10/21/2021 23:59 EDT Hospital Encounter [facility] Ultrasound [address] [place] [address] Supervision of high risk , antepartum; 21 weeks gestation of Discharge Disposition: Home or Self Care Social [...] or Self Detention documented in this encounter Plan of Treatment Not on file documented as of this encounter Procedures Procedure Name Priority Date/Time Associated Diagnosis Comments US OB FOLLOWUP Routine 10/21/2021 11:09 EDT Supervision of high risk , antepartum 21 weeks gestation of documented in this encounter Results * US OB FOLLOWUP (10/21/2021 11:09 EDT) Anatomical Region Laterality Modality Pelvis Ultrasound Narrative 10/22/2021 15:15 EDT Indication ======== Supervision of high risk , antepartum [O09.90] f/u anatomy scan: face/ lips, heart/thorax, LVOT, abd kidneys, extremities and left hand not well seen Dating ====== ? Date ?Details ? Gest. age ?? MYCHAL Prior assessment ? 22 w + 4 d ??02/20/2022 Assigned dating ?Dating performed on 10/21/2021, based on the prior assessment ? 22 w + 4 d ??02/20/2022 General Evaluation Cardiac activity present. FHR 137 bpm. movements visualized. Presentation Variable. Placenta anterior. Umbilical cord normal. Amniotic fluid normal amount. Anatomy The following structures appear normal: Heart / Thorax 4-chamber view. LVOT view. Abdomen ?Stomach. Kidneys. Bladder. Extremities / Skeleton Left hand. The following structures could not be adequately visualized: Face ?? Lips. Nose. Growth Overview Exam date ??GA ??BPD (mm) ?HC (mm) AC (mm) FL (mm) HL (mm) EFW (g) 10/06/2021 20w 3d ??47.0 ?40% 175.5 ?? 25% 157.3 ?? 59% 29.5 ?7% ??28.7 ?20% 330 Technique ======== [facility] [id number]. View: Transabdominal without doppler. Impression ========= [id number] Follow-up obstetrical ultrasound This is a paiz gestation. The LVOT, 4-chamber view, left hand and LVOT are seen and appear normal. The lips are not adequately imaged. Except where noted above, the anatomy was not reviewed in detail as this is a follow-up study and the anatomy was previously assessed. Normal fluid and movement are noted. Follow-up ======== Follow-up as clinically indicated. Procedure Note Aleksey Gerber MD - 10/22/2021 Indication ======== Supervision of high risk , antepartum [O09.90] f/u anatomy scan: face/ lips, heart/thorax, LVOT, abd kidneys, extremitiesand left hand not well seen Dating ====== Date Details Gest. age MYCHAL Prior assessment 22 w + 4 d 02/20/2022 Assigned dating Dating performed on 10/21/2021, based on the priorassessment 22 w + 4 d 02/20/2022 General Evaluation Cardiac activity present. FHR 137 bpm. movements visualized. Presentation Variable. Placenta anterior. Umbilical cord normal. Amniotic fluid normal amount. Anatomy The following structures appear normal: Heart / Thorax 4-chamber view. LVOT view. Abdomen Stomach. Kidneys. Bladder. Extremities / Skeleton Left hand. The following structures could not be adequately visualized: Face Lips. Nose. Growth Overview Exam date GA BPD (mm) HC (mm) AC (mm) FL (mm) HL (mm) EFW (g) 10/06/2021 20w 3d 47.0 40% 175.5 25% 157.3 59% 29.5 7% 28.720% 330 Technique ======== [employer] [id number]. View: Transabdominal without doppler. Impression ========= [id number] Follow-up obstetrical ultrasound This is a paiz gestation. The LVOT, 4-chamber view, left hand and LVOT are seen and appear normal.The lips are not adequately imaged. Except where noted above, the anatomy was not reviewed in detail asthis is a follow-up study and the anatomy was previously assessed. Normal fluid and movement are noted. Follow-up ======== Follow-up as clinically indicated. us Dona Casper NP, CNM IMG US OB ORDER SWAPNIL Final Result documented in this encounter Visit Diagnoses Diagnosis Supervision of high risk , antepartum 21 weeks gestation of state, incidental documented in this encounter Additional Health Concerns Infection Onset Date Last Indicated Resolved Time COVID-19 10/11/2021 10/11/2021 10/31/2021 22:1 5 EDT documented as of this encounter Care Teams Lime Sludge Mixer Relationship Specialty Start Date End Date Martha Saavedra FNP [address] [facility],[address] [place] [address] PCP - General 02/01/17 09/15/22 documented as of this encounter
--- OUTSIDE RECORDS SUMMARY | 2024-07-06 18:50 | XMS_ITS | Encounter Summary ---
Author Organization [facility] Address [address] [place] [address] Care Team Providers Care Belt Back Operator Name Role Phone Nel Saavedranavi Cosby [facility] Primary Care Provi devon Reason for Visit * Reason Comments Shortness of Breath Pt states I have co vid and I am , I have all the symptoms shortness of breath, body aches, headache, chest hurts, sore throat, and I just don't feel good. Has not taken any medications at home to treat her symptoms. Encounter Details Date Type Department Care Team (Late st Contact Info) Description 10/11/2021 22:39 EDT - 10/12/2021 0:40 EDT Emergency [facility] Emergency Department [address] [place], [place] [id number] Tammy Huynh, DO [address] [place] [address] COVID-19 affecting in second trimester (Primary Dx) Discharge Disposition: Home or Self [...] 22:02 EDT documented as of this encounter Last Filed Vital Signs Vital Sign Reading Time Taken Comments Blood Pressure 110/62 10/12/2021 0038 EDT Pulse - - Temperature 36.8 ??C (98.2 ??F) 10/11/20212200 EDT Respiratory Rate 16 10/11/20212200 EDT Oxygen Saturation 100% 10/12/2021 0038 EDT Inhaled Oxygen Concentration - - Weight 55.9 kg (123 lb 3.8 oz) 10/11/20212200 E DT Height 170.2 cm (5' 7) 10/11/20212200 EDT Body Mass Index 19.3 10/11/20212200 EDT documented in this encounter Functional Status [...] 08/03/2021 12:59 EST documented in this encounter Discharge Instructions * Discharge Instructions* Tammy Huynh DO - 10/12/2021 0:32 EDT You are seen in the emergency room today and found to have COVID-19. You can take Tylenol every 6 hours as needed for pain. Drink lots of fluids. Please call your rivet heater tomorrow and let them know that you are positive for COVID. Please return to the emergency room if you have more difficulty breathing, you are not urinating atleast once every 8 hours, you are unable to tolerate fluids, you have vaginal bleeding, or any other new or concerning symptoms. documented in this encounter Medications at Time of Discharge methadone (DOLOPHINE) 10 mg tablet Take 13.5 Tablets by mouth daily. doxylamine 25 mg tablet tablet Take 0.5 Tablets by mouth at bedtime. 30 Tablet 1 08/10/2021 01/06/2022 vit,horacio 74/iron/folic ( VITAMIN 1+1 ORAL) Take by mouth. 01/06/2022 documented as of this encounter Discharge Disposition Disposition Code Departure Means Destination Home or Self Skilled Nursing documented in this encounter ED Notes * Tammy Huynh DO - 10/11/2021 8678 EDT Emergency Department Visit Assessment and ED Course Karin Dixon is a 26 y.o. female 21 weeks who presents to the ED for concerns of having COVID-19. Influenza and RSV are negative. COVID-19 is positive. Case discussed with Dr. Joseph ([facility] Obstetrics). She states patient will need to call the office to report that she is covid positive. She feels if patient looks well and has a normal exam she does not need any other interventions at this time. On reevaluation patient appears well with normal vital signs. Patient would like to go home. Patient was encouraged to follow-up with obstetrics has not been on her COVID-positive status. Patient wasgiven return precautions which she expressed understanding. Final diagnoses: COVID-19 affecting in second trimester Disposition: Discharged Chief complaint: not feeling well HPI Karin Dixon is a 26 y.o. female 21 weeks who presents to the ED for concerns of having COVID-19. Patient reports she has been short of breath with body aches, headaches, sore throat, loss of taste and smell, and just not feeling well for the last 2 days. Patient reports taking a home COVID test last night which was positive. Patient reports her boyfriend, his sister, and his mother also took test last night which were also positive. Patient reports the body aches have improved this evening. Patient has not taken medications. Patient reports she called her rivet heater who told her she needed to come to the emergency room to be seen. No vaginal bleeding or loss of fluid. History was provided by: Patient Patient's pertinent PMH, FH, SH were reviewed and edited as necessary. Review of Systems Constitutional: Positive for malaise/fatigue. Negative for fever. HENT: Positive for sore throat. Eyes: Negative for redness. Respiratory: Positive for cough and shortness of breath. Cardiovascular: Negative for chest pain. Gastrointestinal: Positive for nausea and vomiting. Negative for abdominal pain. Genitourinary: Negative. Musculoskeletal: Negative for falls. Skin: Negative for rash. Neurological: Positive for headaches. Physical Exam BP 110/62 Temp 36.8 ??C (98.2 ??F) (Temporal) Resp 16 Ht 170.2 cm (67) Wt 55.9 kg (123 lb 3.8 oz) LMP 05/12/2021 (Approximate) SpO2 100% BMI 19.30 kg/m?? A medical screening exam was performed. Physical Exam Vitals and nursing note reviewed. Constitutional: General: She is not in acute distress. Appearance: She is well-developed and well-nourished. HENT: Right Ear: External ear normal. Left Ear: External ear normal. Nose: Nose normal. Mouth/Throat: Mouth: Mucous membranes are moist. Pharynx: Oropharynx is clear. Eyes: Conjunctiva/sclera: Conjunctivae normal. Pupils: Pupils are equal, round, and reactive to light. Cardiovascular: Rate and Rhythm: Normal rate and regular rhythm. Pulmonary: Effort: Pulmonary effort is normal. Comments: Normal work of breathing, able to speak in full sentences, no audible wheezing, no cough Abdominal: Palpations: Abdomen is soft. Tenderness: There is no abdominal tenderness. Musculoskeletal: General: Normal range of motion. Cervical back: Normal range of motion and neck supple. Skin: General: Skin is warm and dry. Capillary Refill: Capillary refill takes less than 2 seconds. Neurological: General: No focal deficit present. Mental Status: She is alert and oriented to person, place, and time. Psychiatric: Mood and Affect: Mood and affect normal. Laboratory results independently reviewed. Procedures Procedures documented in this encounter Plan of Treatment Not on file documented as of this encounter Procedures Procedure Name Priority Date/Time Associated Diagnosis Comments ZZCOVID-19 [facility] (TESTING ONLY) Today 10/11/2021 23:27 EDT COVID-19 TESTING Routine 10/11/2021 23:2 7 EDT ZZHN INFLUENZA A AND B, RSV PCR STAT 10/11/2021 23:27 EDT documented in this encounter Results * COVID-19 [facility] (TESTING ONLY) (10/11/2021 23:27 EDT) Swab ENTIRE NASOPHARYNX / Unknown Swab / Unknown 10/11/2021 23:27 EDT 10/11/2021 23:32 EDT us Tammy Huynh DO MICROBIOLOGY - GENERAL O RDERABLES Final Result [facility] [address] [place] [address] * INFLUENZA A AND B,RSV PCR (10/11/2021 23:27 EDT) FLU A RNA Result (FLARES) Negative Negative 10/12/2021 0:28 EDT [facility] FLU B RNA Result (FLBRES) Negative Negative 10/12/2021 0:28 EDT [facility] RSV RNA Result (RSVRES) Negative Negative 10/12/2021 0:28 EDT [facility] Swab ENTIRE NASOPHARYNX / Unknown Swab / Unknown 10/11/2021 23:27 EDT 10/11/2021 23:32 EDT us Tammy Huynh DO MICROBIOLOGY - GENERAL O RDERABLES Final Result Performing Organization Address City/[facility]/ZIP Co de Phone Number [facility] [address] [place] [address] * (ABNORMAL) COVID-19 TESTING (10/11/2021 23:27 EDT) COVID-19 rt-PCR Result Positive(AA) Negative 10/12/2021 0:28 EDT [facility] Performing Lab Cepheid GeneXpert [facility] 10/12/2021 0:28 EDT [facility] Swab ENTIRE NASOPHARYNX / Unknown Swab / Unknown 10/11/2021 23:27 EDT 10/11/2021 23:32 EDT us Tammy Huynh DO MICROBIOLOGY - GENERAL O RDERABLES Final Result Performing Organization Address City/[facility] Co de Phone Number [facility] [address] [place] [address] documented in this encounter Visit Diagnoses Diagnosis COVID-19 affecting in second trimester- Primary documented in this encounter Orders Nursing Count Last Ordered Date First Orde red Date CALL PHYSICIAN SPECIALTY CONSULT 1 10/12/19 22 documented in this encounter Additional Health Concerns Infection Onset Date Last Indicated Resolved Time R/O COVID-19 10/11/2021 10/11/2021 10/16/2021 22:1 7 EDT COVID-19 10/11/2021 10/11/2021 10/31/2021 22:1 5 EDT documented as of this encounter Care Teams Belt Back Operator Relationship Specialty Start Date End Date Martha Saavedra FNP [address] [facility],[address] [place] [address] PCP - General 02/01/17 09/15/22 documented as of this encounter
--- OUTSIDE RECORDS SUMMARY | 2024-07-06 18:50 | XMS_ITS | Encounter Summary ---
Author Organization [facility] Address [address] [place] [address] Care Team Providers Care Taffy Candy Maker Name Role Phone Martha Saavedra Noe Cosby [facility] Primary Care Provi devon Reason for Visit * Reason Onset Date Comments Appointment Related 10/14/2021 Encounter Details Date Type Department Care Team (Late st Contact Info) Description 10/14/2021 Telephone [facility] O[facility] [address] [place], [place] [phone] Tammy Foreman [address] [facility] [address] [place] [address] Appointment Related Social History Tobacco [...] * Telephone Encounter - Tammy Foreman - 10/14/2021 1011 EDT Idea Man attempted to reach pt for ap mh wellness check in and continued care coordination; pt currently has covid, no ans, service writer not able to leave a message as mailbox is full. Idea Man will continue to reach out to pt. documented in this encounter Plan of Treatment Not on file documented as of this encounter Visit Diagnoses Not on filedocumented in this encounter Additional Health Concerns Infection Onset Date Last Indicated Resolved Time R/O COVID-19 10/11/2021 10/11/2021 10/16/2021 22:1 7 EDT COVID-19 10/11/2021 10/11/2021 10/31/2021 22:1 5 EDT documented as of this encounter Care Teams Taffy Candy Maker Relationship Specialty Start Date End Date Martha Saavedra FNP [address] [facility] [place] [address] PCP - General 02/01/17 09/15/22 documented as of this encounter
--- OUTSIDE RECORDS SUMMARY | 2024-07-06 18:50 | XMS_ITS | Encounter Summary ---
Author Organization [facility] Address [address] [place] [address] Care Team Providers Care Dietary Supervisor Name Role Phone Martha Saavedra Noe Harjeet [facility] Primary Care Provi devon Reason for Visit * Reason Onset Date Comments Coordination Of Care 10/26/2021 Encounter Details Date Type Department Care Team (Late st Contact Info) Description 10/26/2021 Telephone [facility] [address] [place] [address] Dona Casper, HUYEN CN [address] [facility], [address] [place] [address] Coordination Of Care Social History [...] Telephone Encounter - Bettina Veloz RN - 10/27/2021 1013 EDT Spoke with pt and given results of u/s as normal and the need to see the lips that can be done at time of 32 week u/s. Pt understands and agrees. Pt scheduled for 11/11/21 with CG. To [place] if you can coordinate a visit with pt. * Telephone Encounter - Dona Casper APRN - 10/26/2021 1823 EDT I'm not sure that Karin was seen for her visit last week after her f/u US. Can you let her know that US enabled them to see the areas not well seen earlier at 20 wks. They saw everything now - except the lips were not well seen. We can look again at her 32 wk US! Can you assist her please with a visit in about 2 weeks with Sarah Armijo and also check in with Tammy Foreman same day. She will be 25 wks at that point. Thanks! documented in this encounter Plan of Treatment Not on file documented as of this encounter Visit Diagnoses Not on filedocumented in this encounter Additional Health Concerns Infection Onset Date Last Indicated Resolved Time COVID-19 10/11/2021 10/11/2021 10/31/2021 22:1 5 EDT R/O COVID-19 11/13/2021 11/13/2021 11/13/2021 10:4 5 EDT documented as of this encounter Care Teams Dietary Supervisor Relationship Specialty Start Date End Date Martha Saavedra FNP [address] [facility],[address] [place] [address] PCP - General 02/01/17 09/15/22 documented as of this encounter
--- OUTSIDE RECORDS SUMMARY | 2024-07-06 18:50 | XMS_ITS | Encounter Summary ---
Author Organization [facility] Address [address] [place] [address] Care Team Providers Care General Farm Hand Name Role Phone Martha Saavedra [facility] Primary Care Provi devon Reason for Referral * (Routine/Next Available) - Receiving Office to Obtain Authorization Specialty Diagnoses / Procedures Referred By Contac t Referred To Contact Diagnoses Poor growth affecting management of mother in third trimester, single or unspecified fetus Procedures NONSTRESS TEST Skye Douglas MD Phone: tel: fax: Referral ID Status Reason Start Date Expiration Date Visits Requested Visits Authorized [id number] Receiving Office to Obtain Authorization 12/09/2021 1 1 * (Routine/Next Available) - Receiving Office to Obtain Authorization Specialty Diagnoses / Procedures Referred By Contac t Referred To Contact Diagnoses Poor growth affecting management of mother in second trimester, single or unspecified fetus Procedures NONSTRESS TEST Skye Douglas MD Phone: tel: fax: Referral ID Status Reason Start Date Expiration Date Visits Requested Visits Authorized [id number] Receiving Office to Obtain Authorization 12/09/2021 1 1 * Specialty Diagnoses / Procedures Referred By Ferny dubose Referred To Contact Skye Douglas MD Phone: tel: fax: Referral ID Status Reason Start Date Expiration Date Visits Re quested Visits Authorized Reason for Visit * Reason Comments Non-stress Test evalua tion * Auth/Cert Specialty Diagnoses / Procedures Referred By Contaudi t Referred To Contact Diagnoses labor in second trimester with delivery in second trimester, fetus 1 h/a, dehydration Referral ID Status Reason Start Date Expiration Date Visits Re quested Visits Authorized [id number] 1 1 Encounter Details Date Type Department Care Team (Late st Contact Info) Description 11/13/2021 14:26 EDT - 12/09/2021 11:20 EDT Hospital Encounter [facility] [address] [place] [address] Rafy Daley MD [address] [place] [address], [facility] [address] [place] [address] labor in second trimester with delivery in second trimester, fetus 1; Supervision of high risk , antepartum; IUGR (intrauterine growth restriction) affecting care of mother; Non-reassuring heart tones complicating , antepartum; Poor growth affecting management of mother in second trimester, not applicable or unspecified fetus; Poor growth affecting management of mother in second trimester, single or unspecified fetus; labor in second trimester without delivery; Poor growth affecting management of mother in third trimester, single or unspecified fetus; Adjustment reaction with anxiety and depression Discharge Disposition: Home or Self Care Social [...] 9:53 EDT documented as of this encounter Last Filed Vital Signs Vital Sign Reading Time Taken Comments Blood Pressure 99/60 12/09/2021 0817 EDT Pulse - - Temperature 36.6 ??C (97.9 ??F) 12/09/2021 0817 EDT Respiratory Rate 16 12/09/2021 0817 EDT Oxygen Saturation 98% 12/09/2021 0817 EDT Inhaled Oxygen Concentration - - Weight 56.7 kg (125 lb) 11/16/20211999 EDT Height 168.9 cm (5' 6.5) 11/16/20211999 EDT Body Mass Index 19.87 11/16/20211999 EDT documented in this encounter Functional Status * Are you deaf or do you have serious difficulty hearing? Answer Date of Assessment Author No 11/16/2021 20:00 EDT Rashmi Monge RN * Are you blind or do you have serious difficulty seeing, even when wearing glasses? Answer Date of Assessment Author No 11/16/2021 20:00 EDT Rashmi Monge RN * Do you have serious difficulty walking or climbing stairs? (5 years old or older) Answer Date of Assessment Author No 11/16/2021 20:00 EDT Rashmi Monge RN * Do you have difficulty dressing or bathing? (5 years old or older) Answer Date of Assessment Author No 11/16/2021 20:00 EDT Rashmi Monge RN * Because of a physical, mental, or emotional condition, do you have difficulty doing errands alone such as visiting a doctor's office or shopping? (15 years old or older) Answer Date of Assessment Author No 11/16/2021 20:00 EDT Rashmi Monge RN documented as of this encounter Mental Status * Because of a physical, mental, or emotional condition, do you have serious difficulty concentrating, remembering, or making decisions? (5 years old or older) Answer Entry Date Author No 11/16/2021 20:00 EDT Rashmi Monge RN documented in this encounter Discharge Summaries * Adrienne Luna MD - 12/09/2021 1120 EDT Department of WEB DEVELOPER PROGRAMMER Maternal Discharge Summary This patient has no babies on file. Maternal Name: Karin Dixon : 1995 Attending: Rafy Daley MD Admission: 11/13/2021 Discharge: 12/09/2021 Reason for Admission: Admission indication: Other (comment) (Cat 2 tracing) Principal/Final Diagnosis: Supervision of high risk , antepartum, non- reassuring assessment. Hospital Course: Karin Dixon is an 26 y.o. at 25w6d by 12wk US admitted as a transport from [facility] for monitoring for nonreassuring assessment and severe growth restriction <1%. Urine drug screen positive for cocaine and methadone on admission. She had been receiving methadone 150mg through the [facility] prior to admission, and her methadone was increased to 160mg in split dosing, and patient remained stable on that dose. Initial NSTs notable for deep prolonged late morphology decels. She inititally got 12 hour of magensium and a single course of BMZ (complete on 6.5) Subsequent TID NSTs intermittently nonreactive but with reassuring stability with moderate variability, and reduced to BID NST. Weekly Dopplers remained normal. Repeat Growth US at 27w1d showed resolved FGR with EFW: 14%. Admission was complicated by difficult disposition planning. Karin was hoping to get admitted to [facility], but they had no available beds so bilingual case manager attempted to arrange for local housing options.On HD 24 she was able to arrange for lodging at her BF's sister stating it was safe. She was discharged with planned NST at [facility] on Monday and APV/ NST on at [facility]. Hospital Problems: Active Hospital Problems Diagnosis Date Noted ??? *Supervision of high risk , antepartum 08/10/2021 Dating: [...] Covid on 10/11/21 (21 w 1 d) [ ] COVID vaccine (Fully vaccinated; [ [...] US: Growth & Anatomy US: [ ] [facility] [ ] Diagnostic Center Results: S=D, anterior [...] and care [ ] PP contraceptive plan ??? labor in second trimester with delivery in second trimester, fetus 1 11/14/2021 Medications during current : Medications Prior to Admission Medication Sig Dispense Refill Last Dose ??? doxylamine 25 mg tablet tablet Take 0.5 Tablets by mouth at bedtime. (Patient not taking: Reported on 10/21/2021) 30 Tablet 1 Not Taking ??? methadone (DOLOPHINE) 10 mg tablet Take 150 mg by mouth daily. 11/13/2021 ??? vit,horacio 74/iron/folic ( VITAMIN 1+1 ORAL) Take by mouth. 11/12/2021 Clinical Issues Needing Follow-up: Polysubstance use: Discharged on 160mg of methadone with split dosing. Dr. Montes at [facility] aware. Hoping to get off [facility]'s waiting list. Imaging: US 11/13/21: EFW <1%ile, normal UA dopplers, CHAS 9 11/23: cephalic, normal UA, MCA, and ductus venosus dopplers 11/29: Dopplers wnl, CPI 11%. 12/06:(28w1d): Breech, anterior placenta, normal CHAS, EFW: 1257g 14%, AC: 68% with normal dopplers. Lab Results Component Value Date HCVRNADETQN 73,900 (H) 12/06/2021 HCVRNADETQN 97,000 (H) 08/16/2021 Care: 1 hr gtt: 91. Tdap: received on 11/29 GBS neg on 11/14 UDS neg on 12/08 Results Pending at Discharge: Test results still pending from this admission None Upcoming Appointments Dec 16, 2021 12:30 (Arrive by 12:15) NON-STRESS TEST with NST ROOM, [facility] [address] [facility] [address] Dec 16, 2021 14:15 (Arrive by 14:00) ROUTINE with Skye Castanon MD [facility] Women's [facility] (--) [address] [facility] [address] Dec 23, 2021 8:30 (Arrive by 8:15) NON-STRESS TEST with NST ROOM, [facility] Obstetrics & Midwifery [facility] (--) [address] [facility] [address] Dec 23, 2021 9:00 (Arrive by 8:45) US OB BIOPHYSICAL PROFILE WITH NON STRESS with [facility] US FDCRM1 [facility] ([facility] EP4 Womens/MACHINE OPERATOR SLITTER TECHNICIAN Imaging) [address] [facility] [address] Dec 30, 2021 14:45 (Arrive by 14:30) NON-STRESS TEST with NST ROOM, [facility] ([facility]) [address] [facility] [address] Dec 30, 2021 15:15 (Arrive by 15:00) ROUTINE with Skye Castanon MD [facility] (--) [address] [facility] [address] Dec 30, 2021 16:15 (Arrive by 16:00) US OB BIOPHYSICAL PROFILE WITH NON STRESS with [facility] US FDCRM2 [facility] ([facility] EP4 Womens/MACHINE OPERATOR SLITTER TECHNICIAN Imaging) [address] [facility] [address] Jan 06, 2022 14:00 (Arrive by 13:45) NON-STRESS TEST with NST ROOM, [facility] ([facility]) [address] [facility] [address] Jan 06, 2022 15:15 (Arrive by 15:00) ROUTINE with Skye Castanon MD [facility] (--) [address] [facility] [address] Jan 06, 2022 16:15 (Arrive by 16:00) US OB BIOPHYSICAL PROFILE WITH NON STRESS with [facility] US FDCRM2 [facility] ([facility] W[facility]ens/MACHINE OPERATOR SLITTER TECHNICIAN Imaging) [address] [place] [address] Jan 13, 2022 14:30 (Arrive by 14:15) NON-STRESS TEST with NST ROOM, [facility] ([facility] [address] [facility] [address] Jan 13, 2022 15:15 (Arrive by 15:00) ROUTINE with Skye Castanon MD [facility] (--) [address] [facility] [address] Jan 13, 2022 16:00 (Arrive by 15:45) US OB BIOPHYSICAL PROFILE WITH NON STRESS with [facility] US FDCRM1 [facility] ([facility] EP4 Womens/MACHINE OPERATOR SLITTER TECHNICIAN Imaging) [address] [place] [address] Jan 20, 2022 15:00 (Arrive by 14:45) ROUTINE with Anamika Wang MD [facility] (--) [address] [facility] [address] Jan 20, 2022 15:30 (Arrive by 15:15) NON-STRESS TEST with NST ROOM, [facility] ([facility]) [address] [facility] [address] Jan 20, 2022 16:15 (Arrive by 16:00) US OB BIOPHYSICAL PROFILE WITH NON STRESS with [facility] US FDCRM4 [facility] ([facility] EP4 Womens/MACHINE OPERATOR SLITTER TECHNICIAN Imaging) [address] [facility] [address] Jan 27, 2022 14:45 (Arrive by 14:30) ROUTINE with Skye Castanon MD [facility] Women's Services [facility] (--) [address] [facility] [address] Jan 27, 2022 15:00 (Arrive by 14:45) NON-STRESS TEST with NST ROOM, [facility] Obstetrics & Midwifery [facility] (--) [address] [facility] [address] Jan 27, 2022 16:00 (Arrive by 15:45) US OB BIOPHYSICAL PROFILE WITH NON STRESS with [facility] US FDCRM1 [facility] Women's Services [facility] ([facility] Womens/MACHINE OPERATOR SLITTER TECHNICIAN Imaging) [address] [facility] [address] Feb 03, 2022 15:00 (Arrive by 14:45) ROUTINE with Skye Castanon MD [facility] Women's Services [facility] (--) [address] [facility] [address] Feb 03, 2022 15:30 (Arrive by 15:15) NON-STRESS TEST with NST ROOM, [facility] Obstetrics & Midwifery [facility] (--) [address] [facility] [address] Feb 03, 2022 16:00 (Arrive by 15:45) US OB BI[facility]HYSICAL [facility] NON [facility]ESS [facility] Women's Services [facility] ([facility] EP4 Womens/MACHINE OPERATOR SLITTER TECHNICIAN Imaging) [address] [facility] [address] Feb 10, 2022 14:30 (Arrive by 14:15) NON-STRESS TEST with NST ROOM, [facility] Obstetrics & Midwifery [facility] (--) [address] [facility] [address] Feb 10, 2022 15:30 (Arrive by 15:15) ROUTINE with Cemile Gunalp, MD [facility] Women's Services [facility] (--) [address] [facility] [address] Feb 10, 2022 16:00 (Arrive by 15:45) US OB BIOPHYSICAL PROFILE WITH NON STRESS with [facility] US FDCRM2 [facility] Women's Services [facility] ([facility] EP4 Womens/MACHINE OPERATOR SLITTER TECHNICIAN Imaging) [address] [facility] [address] Feb 17, 2022 15:00 (Arrive by 14:45) ROUTINE with Chiara Diallo MD [facility] (--) [address] [facility] [address] Feb 17, 2022 15:30 (Arrive by 15:15) NON-STRESS TEST with NST ROOM, [facility] Obstetrics & Midwifery [facility] (--) [address] [facility] [address] Feb 17, 2022 16:15 (Arrive by 16:00) US OB BIOPHYSICAL PROFILE WITH NON STRESS with [facility] US FDCRM2 [facility] Women's Services [facility] ([facility] EP4 Womens/MACHINE OPERATOR SLITTER TECHNICIAN Imaging) [address] [place] [id number] Follow-up appointments and procedures Amb Consult/Follow Up Obstetrics [facility] patient Reason for Request: Weekly APVs with NSTs on in [facility] clinic Expected Discharge Date (Inpatient Only): 12/10/2021 Authorizing Provider: Skye Castanon MD Keep all scheduled appointments Authorizing Provider: Skye Castanon MD Follow-up labs and tests Nonstress Test Expires on: Dec 09, 2022 Authorizing Provider: Skye Castanon MD Nonstress Test Expires on: Dec 09, 2022 Authorizing Provider: Skye Castanon MD US OB BIOPHYSICAL PROFILE WITH NON STRESS Expires on: Dec 23, 2021 Comments: Start testing at 31+4 on 12/23 if able Authorizing Provider: Skye Castanon MD Condition at Discharge stable Discharge Disposition: home GNENDY INDIG, MD 12/15/2021 7:56 Cosigned by Jackeline Fenton MD at 12/15/2021 21:43 EDT documented in this encounter Medications at [...] mouth. 2 documented as of this encounter Ordered Prescriptions Prescription Sig Dispense Quantity Refills Last Filled Start Date End Date multivitamin vit-iron fumarate-FA (STUARTNATAL) 27 mg iron- 1 mg tablet tablet Take 1 Tablet by mouth daily for 90 days. 30 Tablet 2 12/09/2021 2 ferrous gluconate (FERGON) 324 mg (38 mg iron) tablet Take 1 Tablet by mouth daily with breakfast for 90 days. 30 Tablet 2 12/10/2021 2 documented in this encounter Discharge Disposition Disposition Code Departure Means Destination Home or Self Alf documented in this encounter Progress Notes * Lilian Garcia RN - 12/09/2021 1124 EDT Patient discharged undelivered. Boyfriend to provide transportation at discharge. Instructions reviewed, patient demonstrates and verbalizes understanding and possession of all personal items. Declines wheelchair. * Jackeline Fenton MD - 12/09/2021 0569 EDT Antepartum Progress Note CC: NRFA, severe FGR-->resolved, admitted for monitoring in setting of sFGR and polysubstance use disorder. HD: 24 (11/13/2021) Interval Events: - Karin arranged to be d/c to her bf's sister, states it is a safe space. - repeat UDS per DCF. S: Sleeping comfortable. O: Patient Vitals for the past 24 hrs: BP Temp Temp src Resp SpO2 12/08/21 2330 115/70 36.2 ??C (97.2 ??F) Temporal 18 100 % 12/08/21 2100 108/64 36.3 ??C (97.3 ??F) Temporal 16 99 % 12/08/21 1557 107/62 36.5 ??C (97.7 ??F) Temporal 16 99 % 12/08/21 0858 -- -- -- -- 99 % 12/08/21 0853 -- -- -- -- 98 % 12/08/21 0852 -- -- -- -- 99 % 12/08/21 0850 -- -- -- -- 98 % 12/08/21 0845 -- -- -- -- 100 % 12/08/21 0840 -- -- -- -- 100 % 12/08/21 0835 -- -- -- -- 100 % 12/08/21 0830 115/58 36.2 ??C (97.2 ??F) Temporal 18 98 % UOP: multiple spontaneous voids Gen: well appearing in no acute. Labs: Hep C viral load 12/06: 73,9000 Imaging: US 11/13/21: EFW <1%ile, normal UA dopplers, CHAS 9 11/23: cephalic, normal UA, MCA, and ductus venosus dopplers 11/29: Dopplers wnl, CPI 11%. 12/06:(28w1d): Breech, anterior placenta, normal CHAS, EFW: 1257g 1%, AC: 68% with normal dopplers, A/P: 26 y.o. woman at 29w4d admitted for monitoring in the setting of severe FGR and NRFA in the setting of polysubstance use. FHT initially persistently non-reactive, but now with reactive/reassuring NSTs. Growth US on 12/06 demonstrated resolved FGR and Dopplers wnl. BID NSTs while working on dispo planning with case management. AVSS overnight. FWB: NRFHA: resolved FGR, normal dopplers - NSTs at admission with intermittent deep variables to the 60s and intermittent late decels, now with NST's mostly reactive. Occasional decelerations. - weekly dopplers () - S/p 12hrs mag 11/14 and 11/15 - s/p BMZ 11/13-11/14 - plan to discharge with biweekly NST. Polysubstance use - Heroin, fentanyl, and cocaine use prior to admission - On methadone through [facility] - Methadone 150mg IP/MOSAIC TECHNICIAN -> increased to 160 in split dosing 11/14, currently stable on dose - Will reach out to Dr. Montes at [facility] to confirm new dosing. Depression/anxiety - Not on meds currently although patient reports a remote history of bipolar disorder on Abilify - Med psych consulted ?? COVID in - COVID + 10/11/21 ?? Hep C - Viral load 96k at 13wga - repeat viral load pending ?? Iron deficiency anemia: Hct 11/20 34 - PO Fe supplementation - repeat CBC closer to d/c Global - s/p tdap - Passed 1hr gtt - Rh pos - GBS neg Dispo: Will discharge today with Biweekly NSTs through [facility] (mon) and [facility] () DVT ppx: ambulation, SCDs, declined heparin Adrienne Luna MD PGY-2 Obstetrics and Gynecology 12/09/2021 5:39 Pager: [phone] Attestation: I performed or was present during the mitchell or critical portions of the visit and participated in the management of the patient on 12/09/2021. I agree with the findings and plan of care documented in the resident's/fellow's note. Discharge plan in place. Will go to her boyfriend's sister's house. Continue methadone BID through [facility]. Dr. Montes aware. He looked into available rooms at [facility], but Karin declines--thinks she is doing too well for inpatient rehab at this point. Encouraged her to keep her [facility] interview, but she is thinking of canceling this since there is a 3 month wait. Will schedule twice weekly testing--at [facility] and here. Transfer to [facility]. Need to add weekly BPP at 32 weeks. Continue growth US [id number]. Discharge instructions reviewed with patient. Jackeline Fenton MD 12/09/2021 11:32 * Jackeline Fenton MD - 12/08/2021 2219 EDT NST Report Baseline Heart Rate: 130 Accelerations: present Movement: present Decelerations: Present-variable Contractions: irritability Interpretation: reactive Co-sign Provider (Physician Name): Dr Eliceo Wang notified to review strip prior to D/C NST LAZARO TORRES RN I have reviewed the heart rate tracing and agree with the above assessment: reactive NST. Jackeline Fenton MD 12/29/21 11:28 * Stefano Lu - 12/08/2021 1639 EDT CM Discharge Note CASE MANAGEMENT DISCHARGE NOTE DISCHARGE DATE/TIME: 12/09 1100 DESTINATION: Home [address] [facility] [address] [place] (If discharging to [facility]) COVID swab ordered and completed: NA TRANSPORTATION: [facility] [phone] TOW BOAT CAPTAIN/CHARGE/MD NOTIFIED (Y/N): Charge- Yes FORMS: (Acute to acute, COLST, MOLST, TAYA, Screen, PASRR, Ambulance): NA IM SIGNED (Y/NA): na HOME HEALTH: na DME: na PHARMACY/PRESCRIPTIONS: na MEDS TO BEDS UTILIZED : YES/NO No Patient and/or family who participated in discharge plan: Patient OTHER: Plan for follow up appointments twice a week, per Dr Luna patient can go once a week to [facility] for a check in and once up here to [facility]. A taxi ride has been set up for 1030 pickup via [employer] on Thursday 12/14 at her home in [place]. [employer] will provide transport home from [facility] at 1230 on 12/14. Information given to Cab on patient's current phone number [phone] (text only) updated withother family numbers as well. * Stefano Lu - 12/08/2021 1141 EDT 0830: CM working on discharge planning for patient today. Met with patient at bedside for any updates from external team members. Patient states received a call from Jacobo douglas, [facility], . Has a comprehensive assessment interview tomorrow 12/09 at 11am for beginning steps to access housing wait list through [facility]. Patient also has a voicemail from Jso[facility], plans on calling this morning, had spoken again with Theresa about the lack of bed availability in [facility] but that there could be a COVID funding for an apartment? CM will contact Josie to discuss this option. Patient asked about [facility] but this is not an option due to needing 24/7 support at the facility along with substance abuse history. Patient understanding, CM will be reaching back out to [facility] and Josie. 1000: CM reached out to Zoe at [facility], unfortunately there is over a two week waiting list, patient could possibly meet criteria but was recommended to contact [facility]. CM reached out to [facility] [phone], unfortunately also have over a 2 week waiting list, patient would also need to go through an application process with background checks. CM will provide this information topatient. CM reached out and spoke with Josie Mejia case management rn at [facility], [phone]. As of December 10, [facility] will be losing a number of hotels due to the change of funding resource. Hotels will be returning back to pre-pandemic usage thereby limiting spaces for the people already living in the housing program within [facility]. Josie and coworkers are attempting to identify the transitional housing that is available for after December 10, currently this is the issue with the hotel in [place] where patient was residing. Josie states a phone call was made to the grails web application developer of [employer] to check on status and is awaiting call back. Josie also offering to send CM a listing of local Transitional Housing for CMto contact around hoping to provide a case for patient's housing need. Josie specified to ask abouthotel rules/expectations, some do not allow guests or children. CM brought up the apartment question and funding availability, for residents that have been in the system for over 4 months there is a funding available but per Josie this continues through the hotel voucher system. CM will discuss with patient on which specific apartments they are referring to and relay this information to Josie. CM then reached out to Miriam SHAIKH case management rn at [phone] to discuss any updates or thoughts on housing, luckily both Miriam and Jacobo work in the same area, able to conference over speaker to both. Miriam does not have any updates as of today, concurred with Jacobo that staying in the [facility] with the support systems of [facility] and [facility] would be recommended. CM discussed the issues with housing and potentially returning to [place] if a place is located, both workers would need to transferinformation to their counterparts in the [place] area. CM asked about prior discussions around [facility] as interim housing, both workers knew about this but did not hear from patient or other CM's about further pursuing this d/c plan. Miriam asked about the last toxicology screen performed, appears to have been some time, recommended possibly performing again to create a good mari showing that patient has been clean while admitted. CM will bring this up to MD care team. Jacobo confirmed patient has an interview tomorrow, but [facility] does not have bed availability for some time. Did offer recom mendation to have patient contact Joyce at [facility] directly who may have other potential housing options while waiting for [facility] placement. CM will present this information to patient. 1230: Josie has not forwarded a list of housing options, CM went to meet with patient, requested to come back as very tired/needing to sleep. 1345: CM returned to discuss information above and check in on progress made by patient. At this time patient has made the decision to return home to [address] in [place], states this is boyfriend's, Zeb, sister's place where Zeb has been staying. Patient and sister have had issues in past per patient but are looking to resolve disputes and looking forward to assistance from Zeb's mother, Piedad. Patient states Zeb and Piedad will be at [facility] tomorrow morning to provide a ride home. Requests for consistency and less stress to move forward [facility]. Requested to talk with MD team as well this afternoon around changes in methadone and updating [facility] with these changes, also had other questions for MD team as well. CM reached out to Adrienne Luna MD to discuss discharge planning, updated that patient requesting tospeak with team, will meet with patient this afternoon. Discussed timing of rides for monitoring patient here, stated patient can go to [facility] for one of the weekly monitoring and is open to having Tuesdays as [facility] monitoring. CM contacted [place] [facility] [phone] to refer for future transport, set up Thursday 12/14 at 1030 pickup in [place] and a 1230 return from [facility]. CM updated Miriam Galindo and Zach of plans for discharge tomorrow, VM left with Josie, CM spoke directly with Sarah, will talk with supervisor lump room on transferring information to their counterparts in [facility]. A Aly 1098 * Jackeline Fenton MD - 12/08/2021 0931 EDT NST Report [id number] Baseline Heart Rate: 135 Accelerations: present Movement: present Decelerations: Present-variable Contractions: irritability Interpretation: reactive Co-sign Provider (Physician Name): DR. Eliceo Luna notified to review strip ALLEN RUELAS I have reviewed the heart rate tracing and agree with the above assessment: reactive NST. Jackeline Fenton MD 01/10/22 10:36 * Jackeline Fenton MD - 12/08/2021 0516 EDT Antepartum Progress Note CC: NRFA, severe FGR-->resolved, admitted for monitoring in setting of sFGR and polysubstance use disorder. HD: 24 (11/13/2021) Interval Events: - CM working on dispo options in [place]. - NST reassuring S: Doing well this am, still having difficulty staying asleep, wakes up every hour or so. Tried benadryl but not helping, has not tried melatonin. Does not have any updates re: housing, states that she reached out to CM yesterday who is still working on options. Denies Ctx, VB, LOF. O: Patient Vitals for the past 24 hrs: BP Temp Temp src Resp SpO2 12/08/21 0040 95/50 -- -- 16 97 % 12/08/21 0037 -- 36.2 ??C (97.2 ??F) Temporal -- -- 12/07/21 2118 100/59 36.5 ??C (97.7 ??F) Temporal 16 98 % 12/07/21 1533 97/57 36.9 ??C (98.4 ??F) Temporal 16 98 % 12/07/21 0807 104/53 36.5 ??C (97.7 ??F) Temporal 16 99 % UOP: multiple spontaneous voids Gen: swell appearing in no acute distress. Pulm: breathing comfortably on room air CV: regular rate. Labs: HCV viral load pending: Imaging: US 11/13/21: EFW <1%ile, normal UA dopplers, CHAS 9 11/23: cephalic, normal UA, MCA, and ductus venosus dopplers 11/29: Dopplers wnl, CPI 11%. 12/06:(28w1d): Breech, anterior placenta, normal CHAS, EFW: 1257g 1%, AC: 68% with normal dopplers, A/P: 26 y.o. woman at 29w3d admitted for monitoring in the setting of severe FGR and NRFA in the setting of polysubstance use. FHT initially persistently non-reactive, but now with reactive/reassuring NSTs. Growth US on 12/06 demonstrated resolved FGR and Dopplers wnl. BID NSTs while working on dispo planning with case management. AVSS overnight. FWB: NRFHA: resolved FGR, normal dopplers - NSTs at admission with intermittent deep variables to the 60s and intermittent late decels, now with NST's mostly reactive. Occasional decelerations. - weekly dopplers () - S/p 12hrs mag 11/14 and 11/15 - Restart Mag if moving towards delivery prior to 32wks - s/p BMZ 11/13-11/14 - Eligible for rescue steroids if appears to be moving toward delivery - CMV and toxo neg - Growth US on 12/06 resolved FGR, normal dopplers. , Polysubstance use - Heroin, fentanyl, and cocaine use prior to admission - On methadone through [facility] - Methadone 150mg IP/MOSAIC TECHNICIAN -> increased to 160 in split dosing 11/14, currently stable on dose - working with and [facility] for local lodging options/ possible rehab. Depression/anxiety - Not on meds currently although patient reports a remote history of bipolar disorder on Abilify - Med psych consulted ?? COVID in - COVID + 10/11/21 ?? Hep C - Viral load 96k at 13wga - repeat viral load pending ?? Iron deficiency anemia: Hct 11/20 34 - PO Fe supplementation - repeat CBC closer to d/c Global - s/p tdap - Passed 1hr gtt - Rh pos - GBS neg Dispo: Working with case management for local lodging options for ongoing monitoring while waiting for [facility] placement. DVT ppx: ambulation, SCDs, declined heparin Adrienne Luna MD PGY-2 Obstetrics and Gynecology 12/08/2021 5:16 Pager: [phone] Attestation: I performed or was present during the mitchell or critical portions of the visit and participated in the management of the patient on 12/08/2021. I agree with the findings and plan of care documented in the resident's/fellow's note. Stable today with reassuring monitoring. Awaiting dispo plan. Appreciate work of Case Management team. Can repeat UDS today. Jackeline Fenton MD 12/08/2021 14:27 * Jackeline Fenton MD - 12/07/2021 2235 EDT NST Report Baseline Heart Rate: 120 Accelerations: present Movement: present Decelerations: absent Contractions: irritability Interpretation: reactive Co-sign Provider (Physician Name): Jackeline Fenton Monitoring Time: [id number] NATACHA LITTLE, ALLEN I have reviewed the heart rate tracing and agree with the above assessment: reactive NST. Jackeline Fenton MD 01/10/22 10:39 * Stefano Lu - 12/07/2021 1601 EDT CAROL met with patient at bedside, stated had been in touch with Josie case management rn for [facility], and requested CM contact back to deal with housing question. Also requested to contact [facility] if possibility of staying there. CM discussed call out to [facility] but that criteria may not fit for an admission, awaiting call back still. CM reached out to Josie, had question on possibility of patient staying at [facility] during monitoring period? Currently [facility] where patient was staying is no longer an option and no beds available in the [place] area. December 10 is also the deadline for the end of emergency housing whichis placing some strain on the department. CM reached out to [facility] to discuss criteria for admission, currently patient does not qualify. CM contacted Josie back and presented reasoning, gave contact information if had further questions about the criteria. Per MD team, patient is appropriate to return to [place] and have transportationprovided for outpatient monitoring, CM provided this information and Josie will look into any availability in the [place] area and follow up with CM tomorrow. A Slavate 1098 * Jackeline Fenton MD - 12/07/2021 1452 EDT NST Report Baseline Heart Rate: 125 Accelerations: present Movement: present Decelerations: absent Contractions: irritability Interpretation: Reactive Tammy Fay RN I have reviewed the heart rate tracing and agree with the above assessment: reactive NST. Jackeline Fenton MD 01/10/22 10:39 * Stefano Lu - 12/07/2021 1116 EDT CM Marcello jama from yesterday attempted to brainstorm with supervisor lump room team around potential discharge options. One possibility offered is for checking with [facility], this CM reached out to [facility] at [phone], left awaiting call back. CM reached out to Josie, Emergency housing worker, this morning as well, left and awaiting call back. [phone] A Matte 1098 * Jackeline Fenton MD - 12/07/2021 0547 EDT Antepartum Progress Note CC: NRFA, severe FGR, admitted for monitoring in setting of sFGR and polysubstance use disorder. HD: 24 (11/13/2021) Interval Events: - No local options through [facility], case management working on alternative options for local lodging. - NST decreased to BID. - US demonstrated resolved FGR S: Sleeping, interview deferred. O: Patient Vitals for the past 24 hrs: BP Temp Temp src Resp SpO2 12/07/21 0008 112/54 -- -- 16 98 % 12/06/21 2056 106/61 36.6 ??C (97.9 ??F) Temporal 14 96 % 12/06/21 1514 121/66 36.6 ??C (97.9 ??F) Temporal 18 94 % 12/06/21 1024 -- -- -- -- 100 % 12/06/21 1019 -- -- -- -- 100 % 12/06/21 1014 -- -- -- -- 100 % 12/06/21 1009 -- -- -- -- 100 % 12/06/21 1004 -- -- -- -- 100 % 12/06/21 0959 -- -- -- -- 98 % 12/06/21 0952 -- -- -- -- 100 % 12/06/21 0947 -- -- -- -- 100 % 12/06/21 0938 91/43 36.3 ??C (97.3 ??F) Temporal 18 -- UOP: multiple spontaneous voids Gen: sleeping comfortably Pulm: breathing comfortably on room air CV: regular rate. Labs: HCV viral load pending: Imaging: US 11/13/21: EFW <1%ile, normal UA dopplers, CHAS 9 11/23: cephalic, normal UA, MCA, and ductus venosus dopplers 11/29: Dopplers wnl, CPI 11%. 12/07:(28w1d): Breech, anterior placenta, normal CHAS, EFW: 1257g 1%, AC: 68% A/P: 26 y.o. woman at 29w1d admitted for monitoring in the setting of severe FGR and NRFA in the setting of polysubstance use. FHT initially persistently non-reactive, but now with reactive/reassuring NSTs. Growth US on 12/06 demonstrated resolved FGR and Dopplers wnl. BID NSTs while working on dispo planning with case management. AVSS overnight. FWB: NRFHA: resolved FGR, normal dopplers - NSTs at admission with intermittent deep variables to the 60s and intermittent late decels, now with NST's mostly reactive. Occasional decelerations. - weekly dopplers () - S/p 12hrs mag 11/14 and 11/15 - Restart Mag if moving towards delivery prior to 32wks - s/p BMZ 11/13-11/14 - Eligible for rescue steroids if appears to be moving toward delivery - CMV and toxo neg -Growth US yesterday, resolved FGR Polysubstance use - Heroin, fentanyl, and cocaine use prior to admission - On methadone through [facility] clinic - Methadone 150mg IP/MOSAIC TECHNICIAN -> increased to 160 in split dosing 11/14, currently stable on dose - working with and Madiha for local lodging options/ possible rehab. Depression/anxiety - Not on meds currently although patient reports a remote history of bipolar disorder on Abilify - Med psych consulted ?? COVID in - COVID + 10/11/21 ?? Hep C - Viral load 96k at 13wga - repeat viral load pending ?? Iron deficiency anemia: Hct 11/20 34 - PO Fe supplementation - repeat CBC closer to d/c Global - s/p tdap - Passed 1hr gtt - Rh pos - GBS neg Dispo: Working with case management for local lodging options for ongoing monitoring while waiting for [facility] placement. DVT ppx: ambulation, SCDs, declined heparin Adrienne Luna MD PGY-2 Obstetrics and Gynecology 12/07/2021 5:47 Pager: [phone] Attestation: I performed or was present during the mitchell or critical portions of the visit and participated in the management of the patient on 12/07/2021. I agree with the findings and plan of care documented in the resident's/fellow's note. Discussed discharge plan with case management. They are still working to locate housing. From our perspective, reasonable to return to [place] housing if nothing available locally, with transportation assistance to clinic appointments twice- weekly. Ready for discharge once housing secured. Jackeline Fenton MD 12/07/2021 20:29 * Jackeline Fenton MD - 12/06/2021 9764 EDT NST Report Baseline Heart Rate: 125 Accelerations: absent Movement: present Decelerations: absent Contractions: irritability Interpretation: not reactive Co-sign Provider (Physician Name): Dr Jackeline Fenton Monitoring time: NATACHA LITTLE RN I have reviewed the heart rate tracing and agree with the above assessment: non-reactive NST,but appropriate for gestational age. Jackeline Fenton MD 01/10/22 10:42 * Marcello Camargo - 12/06/2021 1514 EDT @15:15 I called Karin back. Karin had not heard back from the emergency housing. I asked Karin if I can call her Emergency Housing Contact. She said yes and gave me Josie's (housing worker) [phone]. I called Josie. Josie did not have any updates. She is still working on finding housing. I asked ifaKrin's housing has been extended past the . It is not currently since they do not have housing for her, but once they have housing it will be extended. MARCELLO CAMARGO RN * Marcello Camargo - 12/06/2021 1306 EDT Karin said she spoke to the emergency housing today. They are still trying to find her a hotel room in [place]. The plan is now for 2x/weekly NNST vs daily so I brought up the idea of her returning to [facility] with the hospital paying for a taxi voucher for her transportation. She prefers tostay in the [place] area, saying it will be better for her. I will call Karin this afternoon to see if she has heard anything. After I spoke with Karin, Jacobo from [facility] and Miriam from [facility] called to check in. They feel it would be beneficial for Karin to stay in the [place] area. I will call Miriam after I speak with Karin this afternoon. MARCELLO CAMARGO RNCM * Jackeline Fenton MD - 12/06/2021 1058 EDT NST Report [id number] Baseline Heart Rate: 125 Accelerations: present Movement: present Decelerations: Present-variable Contractions: irritability Interpretation: reactive Co-sign Provider (Physician Name): Dr. Eliceo RUELAS, RN I have reviewed the heart rate tracing and agree with the above assessment: reactive NST. Jackeline Fenton MD 01/10/22 10:52 * Jackeline Fenton MD - 12/06/2021 0520 EDT Antepartum Progress Note CC: NRFA, severe FGR, admitted for monitoring in setting of sFGR and polysubstance use disorder. HD: 24 (11/13/2021) Interval Events: -NAEON S: Sleeping, interview deferred. O: Patient Vitals for the past 24 hrs: BP Temp Temp src Resp SpO2 12/06/21 0040 -- -- -- -- 100 % 12/06/21 0035 -- -- -- -- 100 % 12/06/21 0030 -- -- -- -- 100 % 12/06/21 0025 -- -- -- -- 100 % 12/06/21 0010 108/58 -- -- -- 100 % 12/06/21 0005 108/58 36.6 ??C (97.8 ??F) Temporal 18 95 % 12/05/21 2109 129/77 37 ??C (98.6 ??F) Temporal 18 95 % 12/05/21 1728 94/49 -- -- 16 97 % 12/05/21 0937 -- -- -- -- 94 % 12/05/21 0932 -- -- -- -- 97 % 12/05/21926 -- -- -- -- 96 % 12/05/21921 -- -- -- -- 98 % 12/05/2117 102/55 36.5 ??C (97.7 ??F) Temporal 18 -- 12/05/21915 -- -- -- -- 96 % 12/05/21914 -- -- -- -- 97 % UOP: multiple spontaneous voids Gen: sleeping comfortably Pulm: breathing comfortably on room air CV: regular rate. Labs: No new labs Imaging: US 11/13/21: EFW <1%ile, normal UA dopplers, CHAS 9 11/23: cephalic, normal UA, MCA, and ductus venosus dopplers 11/29: Dopplers wnl, CPI 11%. A/P: 26 y.o. woman at 29w1d admitted for monitoring in the setting of severe FGR and NRFA in the setting of polysubstance use. FHT initially persistently non-reactive, but now with reactive/reassuring NSTs. Dopplers wnl, further indicating that prolonging gestation preferable to de livery. Will decrease to BID NST while inpatient, while working on dispo planning with case management. AVSS overnight. FWB: FGR <1%ile, normal dopplers - NSTs at admission with intermittent deep variables to the 60s and intermittent late decels, now with NST's mostly reactive. - weekly dopplers () - S/p 12hrs mag 11/14 and 11/15 - Restart Mag if moving towards delivery prior to 32wks - s/p BMZ 11/13-11/14 - Eligible for rescue steroids if appears to be moving toward delivery - CMV and toxo neg -Growth US today - breech, EFW 1257g (14%), normal umbilical artery dopplers Polysubstance use - Heroin, fentanyl, and cocaine use prior to admission - On methadone through [facility] clinic - Methadone 150mg IP/MOSAIC TECHNICIAN -> increased to 160 in split dosing 11/14, currently stable on dose - working with Rachel for local lodging options/ possible rehab. Depression/anxiety - Not on meds currently although patient reports a remote history of bipolar disorder on Abilify - Med psych consulted ?? COVID in - COVID + 10/11/21 ?? Hep C - Viral load 96k at 13wga - repeat viral load today. ?? Iron deficiency anemia: Hct 11/20 34 - PO Fe supplementation - repeat CBC closer to d/c Global - s/p tdap - Passed 1hr gtt - Rh pos - GBS neg Dispo: Working with case management for local lodging options for ongoing monitoring while waiting for [facility] placement. DVT ppx: ambulation, SCDs, declined heparin Adrienne Luna MD PGY-2 Obstetrics and Gynecology 12/06/2021 5:22 Pager: [phone] Attestation: I performed or was present during the mitchell or critical portions of the visit and participated in the management of the patient on 12/06/2021. I agree with the findings and plan of care documented in the resident's/fellow's note. Feels well. US today with improved growth--EFW 14%. Normal umbilical artery dopplers. Recommend repeat growth ultrasound in 3 weeks. NSTs recently have been reassuring for gestational age. Occasionalmild decelerations, but no concerning/recurrent decelerations for > 1 week. Will decrease NSTs to BID. Will work with case management to arrange discharge locally for twice weekly NSTs and continue to work for longer-term placement at [facility]. Jackeline Fenton MD 12/06/2021 16:14 * Kelly Foy RN - 12/06/2021 0102 EDT NST Report Baseline Heart Rate: 130 Accelerations: present Movement: present Decelerations: Present Variable X1 Contractions: irritability Interpretation: reactive Strip reviewed by MD Wang. Co-sign Provider (Dr. Gabriel): [id number] KELLY FOY RN Cosigned by Sandie Gabriel MD at 04/29/2022 13:32 EST * Kurtis Vasquez RN - 12/05/2021 1804 EDT NST Report Baseline Heart Rate: 130 Accelerations: present Movement: present Decelerations: absent Contractions: irritability Interpretation: reactive Co-sign Provider (Physician Name):Irma Bowden MD NST ran from [id number]. RN in room during potential decel. Could here FHT as regular. Pt tolerated well. KURTIS VASQUEZ RN Cosigned by Alcira Bowden MD at 01/10/2022 13:17 EDT * Ana Kauffman RN - 12/05/2021 0943 EDT NST Report [id number] Baseline Heart Rate: 130 Accelerations: present Movement: present Decelerations: absent Contractions: absent Interpretation: reactive Co-sign Provider (Physician Name): Dr. Kal RUELAS RN Cosigned by Alcira Bowden MD at 01/10/2022 14:13 EDT * Alcira Bowden MD - 12/05/2021 0607 EDT Antepartum Progress Note CC: NRFA, severe FGR, admitted for NRFA in setting of sFGR and polysubstance use disorder. HD: 23 (11/13/2021) Interval Events: -NAEON S: Sleeping this am. O: Patient Vitals for the past 24 hrs: BP Temp Temp src Resp SpO2 12/04/21 2337 101/53 36.2 ??C (97.2 ??F) Temporal 16 97 % 12/04/21 1930 106/61 36.7 ??C (98.1 ??F) Temporal 16 97 % 12/04/21 1908 -- -- -- -- 100 % 12/04/21 1830 -- -- -- -- 100 % 12/04/21 1825 -- -- -- -- 100 % 12/04/21 1820 -- -- -- -- 100 % 12/04/21 1815 -- -- -- -- 100 % 12/04/21 1810 -- -- -- -- 100 % 12/04/21 1700 95/45 36.4 ??C (97.5 ??F) 16 94 % 12/04/21 1010 -- -- -- -- 100 % 12/04/21 1005 -- -- -- -- 100 % 12/04/21 1000 -- -- -- -- 99 % 12/04/21 0955 -- -- -- -- 100 % 12/04/21 0950 -- -- -- -- 97 % 12/04/21 0943 114/63 36.1 ??C (97 ??F) Temporal 18 -- UOP: multiple spontaneous voids Gen: sleeping comfortably Pulm: breathing comfortably on room air CV: regular rate. Labs: No new labs Imaging: US 11/13/21: EFW <1%ile, normal UA dopplers, CHAS 9 11/23: cephalic, normal UA, MCA, and ductus venosus dopplers 11/29: Dopplers wnl, CPI 11%. A/P: 26 y.o. woman at 29w0d admitted for monitoring in the setting of severe FGR and NRFA in the setting of polysubstance use. FHT initially persistently non-reactive, but now with reactive/reassuring NSTs. Dopplers wnl, further indicating that prolonging gestation preferable to de livery. Will continue TID NST while inpatient, while working on dispo planning with case management. AVSS overnight. FWB: FGR <1%ile, normal dopplers - NSTs at admission with intermittent deep variables to the 60s and intermittent late decels, now with NST's mostly reactive. - weekly dopplers () - S/p 12hrs mag 11/14 and 11/15 - Restart Mag if moving towards delivery prior to 32wks - s/p BMZ 11/13-11/14 - Eligible for rescue steroids if appears to be moving toward delivery - CMV and toxo neg Polysubstance use - Heroin, fentanyl, and cocaine use prior to admission - On methadone through [facility] - Methadone 150mg IP/MOSAIC TECHNICIAN -> increased to 160 in split dosing 11/14, currently stable on dose - working with Rachel for local lodging options/ possible rehab. Depression/anxiety - Not on meds currently although patient reports a remote history of bipolar disorder on Abilify - Med psych consulted ?? COVID in - COVID + 10/11/21 ?? Hep C - Viral load 96k at 13wga - repeat viral load when moving toward delivery. ?? Iron deficiency anemia: Hct 11/20 34 - PO Fe supplementation - repeat CBC closer to d/c Global - s/p tdap - Passed 1hr gtt - Rh pos - GBS neg Dispo: Working with case management for local lodging options for ongoing monitoring. DVT ppx: ambulation, SCDs, declined heparin Chiara Diallo D.O. 12/05/2021 6:42 OBGYN PGY-2 Attestation: I performed or was present during the mitchell or critical portions of the visit and participated in the management of the patient on 12/05/2021. I agree with the findings and plan of care documented in the resident's note. 26 y.o. F @ 29w0d, admitted for antepartum monitoring in context of FGR<1%ile, initially nonreassuring tracing on admission since improved. Alcira Bowden MD 12/05/2021 11:20 * Joslyn Haney RN - 12/05/2021 0041 EDT NST Report Baseline Heart Rate: 130 Accelerations: present Movement: present Decelerations: Present, variable Contractions: absent Interpretation: reactive Co-sign Provider (Physician Name): Sandie Gabriel MD [id number] JOSLYN HANEY RN Cosigned by Sandie Gabriel MD at 04/29/2022 13:32 EST * Ana Kauffman RN - 12/04/2021 1917 EDT NST Report [id number] Baseline Heart Rate: 130 Accelerations: present Movement: present Decelerations: absent Contractions: absent Interpretation: reactive Co-sign Provider (Physician Name): Dr. Tyson Per Dr. Luna okay to come off ALLEN RUELAS Cosigned by Ann Tyson MD at 12/04/2021 19:40 EDT Associated attestation - Ann Tyson MD - 12/04/2021 1940 EDT I have personally reviewed the FHT tracing and agree with the above interpretation. Ann Tyson MD * Ana Kauffman RN - 12/04/2021 1856 EDT NST Report [id number] Baseline Heart Rate: 130 Accelerations: present Movement: present Decelerations: Present x one Contractions: absent Interpretation: reactive Co-sign Provider (Physician Name):Dr. Adriana Luna notified of decel, requesting another strip. ALLEN RUELAS Cosigned by Ann Tyson MD at 12/04/2021 19:40 EDT Associated attestation - Ann Tyson MD - 12/04/2021 1940 EDT I have personally reviewed the FHT tracing and agree with the above interpretation. Ann Tyson MD * Ana Kauffman RN - 12/04/2021 1027 EDT NST Report [id number] Baseline Heart Rate: 130 Accelerations: Present x 1 Movement: present Decelerations: Present variable Contractions: absent Interpretation: reactive Co-sign Provider (Physician Name):Dr. Adriana Luna notified of strip. Similar to other NST's ALLEN RUELAS Cosigned by Ann Tyson MD at 12/04/2021 10:44 EDT Associated attestation - Ann Tyson MD - 12/04/2021 1044 EDT I have personally reviewed the FHT tracing and agree with the above interpretation. Ann Tyson MD * Ann Tyson MD - 12/04/2021 0614 EDT Antepartum Progress Note CC: NRFA, severe FGR, admitted for NRFA in setting of sFGR and polysubstance use disorder. HD: 22 (11/13/2021) Interval Events: - NST reassuring. S: Sleeping this am. O: Patient Vitals for the past 24 hrs: BP Temp Temp src Resp SpO2 12/04/21 0158 107/61 36.3 ??C (97.3 ??F) Temporal 16 97 % 12/03/21 1930 106/63 36 ??C (96.8 ??F) Temporal 18 97 % 12/03/21 1725 102/68 36.8 ??C (98.2 ??F) Temporal 18 97 % 12/03/21 1006 100/48 36.1 ??C (97 ??F) Temporal 18 99 % UOP: multiple spontaneous voids Gen:Well appearing in no acute distress. Pulm:breathing comfortably on room elvin CV; regular rate. Labs: No new labs Imaging: US 11/13/21: EFW <1%ile, normal UA dopplers, CHAS 9 11/23: cephalic, normal UA, MCA, and ductus venosus dopplers 11/29: Dopplers wnl, CPI 11%. A/P: 26 y.o. woman at 28w6d admitted for monitoring in the setting of severe FGR and NRFA in the setting of polysubstance use. FHT initially persistently non-reactive, but now with reactive/reassuring NSTs. Dopplers wnl, further indicating that prolonging gestation preferable to de livery Will continue TID NST while inpatient, while working on dispo planning with case management. FWB: FGR <1%ile, normal dopplers - NSTs at admission with intermittent deep variables to the 60s and intermittent late decels, now with NST's mostly reactive. - weekly dopplers () - S/p 12hrs mag 11/14 and 11/15 - Restart Mag if moving towards delivery prior to 32wks - s/p BMZ 11/13-11/14 - Eligible for rescue steroids if appears to be moving toward delivery - CMV and toxo neg Polysubstance use - Heroin, fentanyl, and cocaine use prior to admission - On methadone through [facility] - Methadone 150mg IP/MOSAIC TECHNICIAN -> increased to 160 in split dosing 11/14, currently stable on dose - working with Rachel for local lodging options/ possible rehab. Depression/anxiety - Not on meds currently although patient reports a remote history of bipolar disorder on Abilify - Med psych consulted ?? COVID in - COVID + 10/11/21 ?? Hep C - Viral load 96k at 13wga - repeat viral load when moving toward delivery. ?? Iron deficiency anemia: Hct 11/20 34 - PO Fe supplementation - repeat CBC closer to d/c Global - s/p tdap - Passed 1hr gtt - Rh pos - GBS neg Dispo: Working with case management for local lodging options for ongoing monitoring. DVT ppx: ambulation, SCDs, declined heparin Adrienne Luna MD PGY-2 Obstetrics and Gynecology 12/04/2021 6:14 Pager: [phone] Attestation statement: I saw and examined the patient. I agree with the resident's/fellow's findings and plans as documented above. Ann Tyson MD * Maribeth Altamirano RN - 12/04/2021 0409 EDT NST Report Baseline Heart Rate: 130 Accelerations: absent Movement: present Decelerations: present (one deceleration at end of NST, unable to further assess because pt rang holt and was taking herself off the monitor when this RN walked in the room and refused to stay on anylonger) Contractions: irritability Interpretation: not reactive (MD aware and okayed taking pt off monitor) Co-sign Provider (Physician Name): Dr. Sandie ALTAMIRANO, ALLEN Cosigned by Sandie Gabriel MD at 04/29/2022 13:32 EST * Marleny Yoon - 12/03/2021 1251 EDT Checked in with Karin today on [place] [address]; overall feeling well. Has not called her foreign exchange services manager, plans to do so today. She has heard from friends about movement at [facility]. Encouraged her to not get to excited as my understanding is that they have a wait list so unlikely a bed for her. Stressed importance of reaching out to [facility]SD about hotel in the [facility]. Phone call from Po at [facility]; he asked for a medical update and housing plan update. Provided both. He confirmed that [facility] has a waiting list and will not have a bed for her anytime soon. Po said that Karin needs to connect with her foreign exchange services manager and work on a plan. He will text her to reiterate this. Followed up with Karin this afternoon. She talked with foreign exchange services manager at [facility]. They are running the scenario by their supervisor lump room to see what they are able to do. Karin anticipates a call back by the end of the day. Encouraged her to call again if she has not heard by 4:15 pm. Marleny Yoon, INFORMATION TECHNOLOGY TECHNICIAN #[id number] * Adirenne Luna MD - 12/03/2021 0536 EDT Antepartum Progress Note CC: NRFA, severe FGR, admitted for NRFA in setting of sFGR and polysubstance use disorder. HD: 21 (11/13/2021) Interval Events: - NST reassuring. S: *Doing ok this am, having difficulty staying asleep. Did speak to Jacobo at [facility] who stated that someone from the MD team should reach out to him. Denies any CTX, VB, LOF. Doing well mood rocha but would consider restarting abilify. O: Patient Vitals for the past 24 hrs: BP Temp Temp src Resp SpO2 12/03/21 0106 99/59 36.3 ??C (97.3 ??F) Temporal 16 98 % 12/02/21 2009 104/61 36.7 ??C (98.1 ??F) Temporal 16 97 % 12/02/21 1529 100/63 36.6 ??C (97.9 ??F) Temporal 18 98 % 12/02/21 0943 -- -- -- -- 100 % 12/02/21 0938 -- -- -- -- 100 % 12/02/21 0933 -- -- -- -- 100 % 12/02/21 0928 -- -- -- -- 100 % 12/02/21 0923 -- -- -- -- 100 % 12/02/21 0918 -- -- -- -- 100 % 12/02/21 0913 -- -- -- -- 100 % 12/02/21 0908 -- -- -- -- 100 % 12/02/21 0848 93/52 36.3 ??C (97.3 ??F) Temporal 16 99 % UOP: multiple spontaneous voids Gen:Well appearing in no acute distress. Pulm:breathing comfortably on room elvin CV; regular rate. Labs: No new labs Imaging: US 11/13/21: EFW <1%ile, normal UA dopplers, CHAS 9 11/23: cephalic, normal UA, MCA, and ductus venosus dopplers 11/29: Dopplers wnl, CPI 11%. A/P: 26 y.o. woman at 28w5d admitted for monitoring in the setting of severe FGR and NRFA in the setting of polysubstance use. FHT initially persistently non-reactive, but now with reactive/reassuring NSTs. Dopplers wnl, further indicating that prolonging gestation preferable to de livery Will continue TID NST while inpatient, while working on dispo planning with case management. FWB: FGR <1%ile, normal dopplers - NSTs at admission with intermittent deep variables to the 60s and intermittent late decels, now with NST's mostly reactive. Would bring to L&D for CEFM and consideration of delivery if FHT worsened compared to baseline - S/p 12hrs mag 11/14 and 11/15 - Restart Mag if moving towards delivery prior to 32wks - s/p BMZ 11/13-11/14 - Eligible for rescue steroids if appears to be moving toward delivery - CMV and toxo neg Polysubstance use - Heroin, fentanyl, and cocaine use prior to admission - On methadone through [facility] - Methadone 150mg IP/MOSAIC TECHNICIAN -> increased to 160 in split dosing 11/14, currently stable on dose - plan to discharge to [facility] pending placement. Depression/anxiety - Not on meds currently although patient reports a remote history of bipolar disorder on Abilify - Med psych consulted, will follow up today. - Obtain mental health records from [facility] for MH history. ?? COVID in - COVID + 10/11/21 ?? Hep C - Viral load 96k at 13wga - repeat viral load when moving toward delivery. ?? Iron deficiency anemia: Hct 11/20 34 - PO Fe supplementation - repeat CBC closer to d/c Global - s/p tdap - Passed 1hr gtt - Rh pos - GBS neg Dispo: Planning discharge to [facility] pending placement, likely not for 2 weeks at least, will work with case management on alternative options. DVT ppx: ambulation, SCDs, declined heparin Adrienne Luna MD PGY-2 Obstetrics and Gynecology 12/03/2021 5:36 Pager: [phone] Cosigned by Sandie Gabriel MD at 12/03/2021 7:51 EDT Associated attestation - Sandie Gabriel MD - 12/03/2021 0751 EDT MFMS Attending I saw and examined patient. I agree with the the impression and plan as noted above. Pt feeling well GFM Waiting dispo and will cont intensive monitoring until then Dopplers prior to DC Sandie Gabriel MD * Beverly Ribera MD - 12/03/2021 0214 EDT NST Report Baseline Heart Rate: 125 Accelerations: Present (one acceleration present) Movement: present Decelerations: absent Contractions: irritability Interpretation: not reactive (MD reviewed and okayed taking pt off monitor) Co-sign Provider (Physician Name): Dr. Beverly ALTAMIRANO RN I reviewed the NST and agree. One acceleration, overall reassuring. Beverly Ribera MD * Beverly Ribera MD - 12/02/2021 1745 EDT NST Report Baseline Heart Rate: 125 Accelerations: present Movement: present Decelerations: absent Contractions: irritability Interpretation: reactive Co-sign Provider (Physician Name): Dr. Ribera. SANTHOSH CORCORAN RN I reviewed the NST and agree. Beverly Ribera MD * Beverly Ribera MD - 12/02/2021 1002 EDT NST Report Baseline Heart Rate: 125 Accelerations: present Movement: present Decelerations: absent Contractions: irritability Interpretation: reactive Co-sign Provider (Physician Name): Dr. Bacilio CORCORAN RN I reviewed the NST and agree. Beverly Ribera MD * Adrienne Luna MD - 12/02/2021 0531 EDT Antepartum Progress Note CC: NRFA, severe FGR, admitted for NRFA in setting of sFGR and polysubstance use disorder. HD: 20 (11/13/2021) Interval Events: - NST reassuring. S: Sleeping soundly. O: Patient Vitals for the past 24 hrs: BP Temp Temp src Resp SpO2 12/02/21 0113 96/53 -- -- -- -- 12/02/21 0108 (!) 89/47 36.2 ??C (97.2 ??F) Temporal 18 97 % 12/01/212015 104/61 36.3 ??C (97.3 ??F) Temporal 18 98 % 12/01/211748 -- -- -- -- 100 % 12/01/211743 -- -- -- -- 100 % 12/01/211738 -- -- -- -- 99 % 12/01/211728 -- -- -- -- 100 % 12/01/211723 -- -- -- -- 100 % 12/01/21 1705 118/77 36.6 ??C (97.9 ??F) Temporal 18 97 % 12/01/21 1005 -- -- -- -- 99 % 12/01/21 1000 -- -- -- -- 100 % 12/01/21 0950 -- -- -- -- 100 % 12/01/21 0940 -- -- -- -- 100 % 12/01/21 0935 -- -- -- -- 100 % 12/01/21 0915 108/56 36.4 ??C (97.5 ??F) 18 95 % UOP: multiple spontaneous voids PE deferred. Labs: No new labs Imaging: US 11/13/21: EFW <1%ile, normal UA dopplers, CHAS 9 11/23: cephalic, normal UA, MCA, and ductus venosus dopplers 11/29: Dopplers wnl, CPI 11%. A/P: 26 y.o. woman at 28w4d admitted for monitoring in the setting of severe FGR and NRFA in the setting of polysubstance use. FHT initially persistently non-reactive, but now with reactive/reassuring NSTs. Dopplers wnl, further indicating that prolonging gestation preferable to de livery Will continue TID NST while inpatient.. FWB: FGR <1%ile, normal dopplers - NSTs at admission with intermittent deep variables to the 60s and intermittent late decels, this am NST non-reactive but without decels with moderate variability. Would bring to L&D for CEFM and consideration of delivery if FHT worsened compared to baseline - S/p 12hrs mag 11/14 and 11/15 - Restart Mag if moving towards delivery prior to 32wks - s/p BMZ 11/13-11/14 - Eligible for rescue steroids if appears to be moving toward delivery - KB negative - CMV and toxo neg Polysubstance use - Heroin, fentanyl, and cocaine use prior to admission - On methadone through [facility] - Methadone 150mg IP/MOSAIC TECHNICIAN -> increased to 160 in split dosing 11/14, currently stable on dose - plan to discharge to [facility] pending placement. Depression/anxiety Not on meds currently although patient reports a remote history of bipolar disorder on Abilify - Med psych consulted - Obtain mental health records from [facility] for MH history. ?? COVID in - COVID + 10/11/21 ?? Hep C - Viral load 96k at 13wga -repeat viral load when moving toward delivery. ?? Iron deficiency anemia: Hct 11/20 34 - PO Fe supplementation - repeat CBC closer to d/c Global - s/p tdap - Passed 1hr gtt - Rh pos - GBS neg Dispo: Planning discharge to [facility] pending placement, likely not for 2 weeks at least, will work with case management on alternative options. DVT ppx: ambulation, SCDs, declined heparin Adrienne Luna MD PGY-2 Obstetrics and Gynecology 12/02/2021 5:31 Pager: [phone] Cosigned by Beverly Ribera MD at 12/02/2021 10:32 EDT Associated attestation - Beverly Ribera MD - 12/02/2021 1032 EDT Patient seen and agree. Dopplers repeated 11/29 and are normal Monitoring has been reassuring Working on discharge planning -- [facility] not available If no local options available will discharge home beginning of next week with weekly (qmonday) dopplers, NST, [facility] at [facility] and [place] [facility] * Beverly Ribera MD - 12/02/2021 0151 EDT NST Report Baseline Heart Rate: 120 Accelerations: present Movement: present Decelerations: absent Contractions: irritability Interpretation: reactive NST [id number] Co-sign Provider (Physician Name): MD KELLY Ribera RN I reviewed the NST. Reactive for GA. Beverly Ribera MD * Kelly Foy RN - 12/01/2021 1800 EDT NST Report Baseline Heart Rate: 125 Accelerations: Present X1 Movement: present Decelerations: absent Contractions: irritability Interpretation: not reactive, reassuring [id number] Co-sign Provider (Dr. Gabriel): KELLY FOY RN Cosigned by Sandie Gabriel MD at 04/29/2022 13:32 EST * Kelly Foy RN - 12/01/2021 1035 EDT NST Report Baseline Heart Rate: 125 Accelerations: absent Movement: present Decelerations: absent Contractions: irritability Interpretation: not reactive, reassuring [id number] Reviewed by jaylin Monroe to stop NST. Co-sign Provider (Dr. Gabriel): KELLY FOY RN Cosigned by Sandie Gabriel MD at 04/29/2022 13:32 EST * Adrienne Luna MD - 12/01/2021 0530 EDT Antepartum Progress Note CC: NRFA, severe FGR, admitted for NRFA in setting of sFGR and polysubstance use disorder. HD: 19 (11/13/2021) S: sleeping comfortably. O: Patient Vitals for the past 24 hrs: BP Temp Temp src Resp SpO2 12/01/21 0130 -- -- -- -- 100 % 12/01/21 0120 -- -- -- -- 100 % 12/01/21 0110 -- -- -- -- 100 % 12/01/21 0100 113/63 36.2 ??C (97.2 ??F) Temporal 18 98 % 11/30/21 1827 -- -- -- -- 100 % 11/30/21 182 -- -- -- -- 100 % 11/30/21 181 -- -- -- -- 100 % 11/30/21 181 -- -- -- -- 100 % 11/30/21 1807 -- -- -- -- 96 % 11/30/21 1532 103/65 36.6 ??C (97.9 ??F) Temporal 18 96 % 11/30/21 1051 -- -- -- -- 100 % 11/30/21 1046 -- -- -- -- 100 % 11/30/21 1041 -- -- -- -- 100 % 11/30/21 1036 -- -- -- -- 100 % 11/30/21 1031 -- -- -- -- 100 % 11/30/21 1026 -- -- -- -- 100 % 11/30/21 1021 -- -- -- -- 100 % 11/30/21 1016 -- -- -- -- 100 % 11/30/21 1011 -- -- -- -- 100 % 11/30/21 0930 110/55 -- -- -- -- 11/30/21 0927 110/55 36.5 ??C (97.7 ??F) 97 % UOP: multiple spontaneous voids GEN: sleeping PE deferred. Labs: No new labs Imaging: US 11/13/21: EFW <1%ile, normal UA dopplers, CHAS 9 11/23: cephalic, normal UA, MCA, and ductus venosus dopplers 11/29: Dopplers wnl, CPI 11%. A/P: 26 y.o. woman at 28w3d admitted for monitoring in the setting of severe FGR and NRFA. FHT initially persistently non-reactive, but now with reactive/reassuring NSTs. Dopplers wnl, further indicating that prolonging gestation preferable to delivery. Low suspicion for fetomaternal hemorrhage. Will continue TID NST while inpatient.. FWB: FGR <1%ile, normal dopplers - NSTs at admission with intermittent deep variables to the 60s and intermittent late decels, this am NST non-reactive but without decels with moderate variability. Would bring to L&D for CEFM and consideration of delivery if FHT worsened compared to baseline - S/p 12hrs mag 11/14 and 11/15 - Restart Mag if moving towards delivery prior to 32wks - s/p BMZ 11/13-11/14 - Eligible for rescue steroids if appears to be moving toward delivery - KB negative - CMV and toxo neg Polysubstance use - Heroin, fentanyl, and cocaine use prior to admission - On methadone through [facility] - Methadone 150mg IP/MOSAIC TECHNICIAN -> increased to 160 in split dosing 11/14, currently stable on dose - plan to discharge to [facility] pending placement. Depression/anxiety Not on meds currently although patient reports a remote history of bipolar disorder on Abilify - Med psych consulted - Obtain mental health records from [facility] for MH history. ?? COVID in - COVID + 10/11/21 ?? Hep C - Viral load 96k at 13wga -repeat viral load when moving toward delivery. ?? Iron deficiency anemia: Hct 11/20 34 - PO Fe supplementation Global - s/p tdap - Passed 1hr gtt - Rh pos - GBS neg Dispo: Planning discharge to [facility] pending placement, likely not for 2 weeks at least, will work with case management today on alternative options. DVT ppx: ambulation, SCDs, declined heparin Adrienne Luna MD PGY-2 Obstetrics and Gynecology 12/01/2021 5:30 Pager: [phone] Cosigned by Sandie Gabriel MD at 12/01/2021 10:24 EDT Associated attestation - Sandie Gabriel MD - 12/01/2021 1024 EDT MFMS Attending I saw and examined patient. I agree with the the impression and plan as noted above. Pt feeling well without c/o Monitoring stable Disc outpt plan: case working trying to find place for DC, likely Mon if possible Disc DC with pt-she asked about staying here, disc hosptialization as long as medically neeeded butwould need close fu and will have that arranged prior to DC Sandie Gabriel MD * Beverly Ribera MD - 12/01/2021 0212 EDT NST Report Baseline Heart Rate: 120 Accelerations: present Movement: present Decelerations: present Contractions: irritability Interpretation: not reactive but reassuring,Dr Kathleen smiley Co-sign Provider (Physician Name): TRACI PANG RN I reviewed the NST and agree. Reassuring. Beverly Ribera MD * Beverly Ribera MD - 11/30/2021 1843 EDT NST Report Baseline Heart Rate: 125 Accelerations: present Movement: present Decelerations: Present. Variable Contractions: absent Interpretation: not reactive. Dr. Wang aware. Co-sign Provider (Physician Name): Dr. Ribera. SANTHOSH CORCORNA RN I reviewed the NST. Non-reactive. Mod variability. Beverly Ribera MD * Beverly Ribera MD - 11/30/2021 1241 EDT NST Report On nst 1010 to 1051. Pt. Sitting Baseline Heart Rate: 130 Accelerations: PRESENT Movement: ; PRESENT Decelerations: One variable, quick return to baseline Contractions: Abd. Palpated soft but pt. [place] more uncomfortable with baby moving a lot and pressure on ultrasound toco to angle it. Interpretation: Baby accelerated to 140 twice. Ruth aldridge asked dr ribera to review nst, pt. Said she needed to get off the monitor because she was so uncomfortable. ( her tooth is also bothering her.) nst was reactive. .Co-sign Provider (Physician Name):dr bacilio PETERSON, RN I reviewed the NST. Reassuring. Beverly Ribera MD * Marleny Yoon - 11/30/2021 113 EDT Checked in with patient per nursing request. Karin reports that her boyfriend was supposed to come visit today and had not come. He has a bag of her stuff with some clothes which she needs prior togoing to [facility]. I asked if she had talked with [facility] and completed intake interview. Karin is underthe impression that the meeting last week with [facility] was her [facility] interview. I let her know that was unlikely the interview, however an introduction to their program. Encouraged Karin to call Jacobo to follow up. Let Karin know that prior to her discharge to [facility] arrangements should be made to go to [place] andget her belongings. If needed can possibly help with an outfit, however she does have an outfit here with her that can be washed on [address]. Phone call with Miriam Lofton at [facility]. Miriam said that when she an Jacobo (from [facility]) met with Karin last week she was unsure if she wanted to go to [facility], her goal was to try to stay with her boyfriend and get connected to community supports. They will follow up with Karin today by phone to talkabout her interest and start the process with [facility]. At this point there is no discharge plan to [facility] in place, unclear when a bed will be available. I will continue to communicate with [facility] as updates are available. Marleny Yoon, INFORMATION TECHNOLOGY TECHNICIAN #[id number] * Adrienne Luna MD - 11/30/2021 4365 EDT Antepartum Progress Note CC: NRFA, severe FGR, admitted for TID NST HD: 18 (11/13/2021) S: Sleepy this morning, not able to sleep much overnight.Benadryl helped slightly. Happy with her current dose of methadone, denies any withdrawal or craving symptoms. No other complaints. +FM, denies contractions, LOF, VB. O: Patient Vitals for the past 24 hrs: BP Temp Temp src Resp SpO2 11/30/21 0150 -- -- -- -- 100 % 11/30/21 0140 -- -- -- -- 100 % 11/30/21 0130 -- -- -- -- 100 % 11/30/21 0120 -- -- -- -- 100 % 11/30/21 0115 -- -- -- -- 98 % 11/30/216 112/63 -- -- 18 100 % 11/30/213 -- 36.5 ??C (97.7 ??F) Temporal -- -- 11/29/211844 -- -- -- -- 100 % 11/29/211839 -- -- -- -- 100 % 11/29/211834 -- -- -- -- 100 % 11/29/211829 -- -- -- -- 100 % 11/29/211824 99/55 -- -- -- 100 % 11/29/211821 -- -- -- -- 100 % 11/29/211820 99/55 37 ??C (98.6 ??F) Temporal 18 100 % 11/29/21 1103 -- -- -- -- 100 % 11/29/21 1058 -- -- -- -- 100 % 11/29/21 1053 -- -- -- -- 100 % 11/29/21 1048 -- -- -- -- 100 % 11/29/21 1043 -- -- -- -- 100 % 11/29/21 1038 -- -- -- -- 100 % 11/29/21 1033 -- -- -- -- 100 % 11/29/21 1028 -- -- -- -- 100 % 11/29/21 1023 -- -- -- -- 100 % 11/29/21 1002 -- -- -- -- 97 % 11/29/21 1001 106/56 36.5 ??C (97.7 ??F) Temporal 18 96 % UOP: multiple spontaneous voids GEN: A&Ox3, NAD CV: Regular rate ABD: Soft, nondistended, nontender to palpation Extremities: warm, nontender Labs: No new labs Imaging: US 11/13/21: EFW <1%ile, normal UA dopplers, CHAS 9 11/23: cephalic, normal UA, MCA, and ductus venosus dopplers 11/29: Dopplers wnl, CPI 11%. A/P: 26 y.o. woman at 28w2d admitted for monitoring in the setting of severe FGR and NRFA. FHT initially persistently non-reactive, but now with reactive NSTs. Dopplers wnl, furtherindicating that prolonging gestation preferable to delivery. Low suspicion for fetomaternal hemorrhage. Will continue TID NST. FWB: FGR <1%ile, normal dopplers - NSTs at admission with intermittent deep variables to the 60s and intermittent late decels, this am NST non-reactive but without decels with moderate variability. Would bring to L&D for CEFM and consideration of delivery if FHT worsened compared to baseline - S/p 12hrs mag 11/14 and 11/15 - Restart Mag if moving towards delivery prior to 32wks - s/p BMZ 11/13-11/14 - Eligible for rescue steroids if appears to be moving toward delivery - KB negative - CMV and toxo neg Polysubstance use - Heroin, fentanyl, and cocaine use prior to admission - On methadone through [facility] - Methadone 150mg IP/MOSAIC TECHNICIAN -> increased to 160 in split dosing 11/14, currently stable on dose - plan to discharge to [facility] pending placement. Depression/anxiety Not on meds currently although patient reports a remote history of bipolar disorder on Abilify - Med psych consulted - Obtain mental health records from [facility] for MH history. ?? COVID in - COVID + 10/11/21 ?? Hep C - Viral load 96k at 13wga -repeat viral load when moving toward delivery. ?? Iron deficiency anemia: Hct 11/20 34 - PO Fe supplementation Global - s/p tdap - Passed 1hr gtt - Rh pos - GBS neg Dispo: Planning discharge to [facility] pending placement DVT ppx: ambulation, SCDs, declined heparin Marina Daley, MS4 I was present with the medical student for the history, exam, and medical decision making documented by the student. I have edited the student note as appropriate. MD Adrienne SIMPSON MD PGY-2 Obstetrics and Gynecology 11/30/2021 5:27 Pager: [phone] Cosigned by Beverly Ribera MD at 11/30/2021 11:05 EDT Associated attestation - Beverly Ribera MD - 11/30/2021 1105 EDT Pt seen and agree. Dopplers normal yesterday, monitoring reassuring. Anticipate discharge to [facility] when available with daily NST and weekly APV/dopplers with goal to decrease frequency of outpatient testing as able. * Beverly Ribera MD - 11/30/2021 0201 EDT NST Report Baseline Heart Rate: 120 Accelerations: present Movement: present Decelerations: absent Contractions: irritability Interpretation: reactive Co-sign Provider (Physician Name): Beverly TORRES RN I reviewed the NST. 120, moderate variability 1 accel, no decels. Beverly Ribera MD * Beverly Ribera MD - 11/29/2021 1220 EDT NST Report On nst [id number]. Pt. Sitting. Baseline Heart Rate: 130 Accelerations: PRESENT Movement: PRESENT Decelerations: possibly one variable with quick return to baseline. Contractions: Abd. Palpates soft, Mom felt no ctx. Mom would rest hand on toco or lean forward. Irritability . OB NST reactive Co-sign Provider (Physician Name): dr bacilio PETERSON RN I reviewed the NST and agree. Beverly Ribera MD * Hilary Sosa - 11/29/2021 1142 EDT Psychotherapy Progress Note Name: Karin Dixon : 1995 Date of Service: 11/29/2021 Referring Provider: Beverly Escalante MD Primary Care Provider: Martha Saavedra FNP (General) Diagnosis Code: 1. labor in second trimester with delivery in second trimester, fetus 1 2. Supervision of high risk , antepartum 3. IUGR (intrauterine growth restriction) affecting care of mother 4. Non-reassuring heart tones complicating , antepartum 5. Poor growth affecting management of mother in second trimester, not applicable or unspecified fetus 6. Poor growth affecting management of mother in second trimester, single or unspecified fetus 7. labor in second trimester without delivery 8. Poor growth affecting management of mother in third trimester, single or unspecified fetus Start Time: 9:00 End Time: 9:30 Duration of Session: 30 Minutes Session Type: 47502: Psychotherapy, 16-37 minutes with patient Problem: Karin Dixon (Karin) is a 26 y.o., White female referred for medical psychology services to obtain psychological support and address feelings sadness and anxious distress. Subjective/Session Content: Med psych clinician visited Karin today to conduct a follow-up. Karin consented and agreed to med psych visit. The purpose of today's visit was to offer Karin an opportunity to share her thoughts and feelings regarding her hospital admission and current life stressors. The following themes were discussed today, adjustment with admission, history with feelings of depression & anxiety, adaptive coping strategies and the status of her housing situation. Additionally, pt asked about medication management for her ongoing feelings of depression and anxiety. Clinician reported that she would connect with members of her care team and provide a list of outpatient psychotherapy referrals for continued engagement in psychotherapy. Clinician provided Karin with emotional support. Objective: Appearance: Well-groomed Behavior: cooperative Speech: of normal rate, tone and volume Mood: anxious Affect: congruent with reported mood Thought Process: logical Thought Content: no apparent abnormalities of thought content Cognitive (MMSE if indicated): WNL Suicidality: Karin did not endorse any active SI, plan or intent during today's visit. Assessment: Karin is a 26 y.o., White female referred to our service in order to obtain psychological supportand address feelings sadness and anxious distress. Karin was engaged with clinician today and provided detailed answers to the questions asked of her regarding her mental health history. Karin appears to be motivated and in the prepartion stage of change. Kairn reported sxs of depression (labile mood, sadness, helplessness, feeling shaky and anxious) she attributes these sxs to her current housing situation, (diffculty securing housing). Karin is open to future psychological intervention. While admitted in the hospital if desired, Karin may benefit from hospital based supportive psychotherapy aimed at adjustment and effective coping. Additionally, interventions from trauma focusedtherapy that resonate with her current experiences, stress, and address patterns of anxious cognitive distress. Diagnostic Impressions: Adjustment with anxiety & depression Summary of Goals: Goal 1: Improve emotional coping and provide an understanding of possible emotional and behavioral reactions from stressful situations that may be out of her control. Goal 2: Support healing goals and encourage reflection of external stigmas and biases that contribute to the manifestation of her anxiety as she approaches life stressors. Goal 3: decrease anxiety; encourage continued engagement in behaviors that support sobriety Anticipated response to treatment: Reduce distress and increase positive coping. Treatment Plan: 1. Med psych will continue to follow patient throughout their admission. 2. Utilize interventions from Trauma focused therapy that may assist in reducing sense of interpersonal helplessness (emotional regulation, pragmatic problem solving, emotional processing etc,.) 3. Offer supportive psychotherapy to increase engagement in emotional processing, and positive behaviors that promote sobriety. Frequency: 1x a week Expected duration of services: Services remain available to the patient and family throughout the patient's hospitalization. [facility] Administrative Job Titles Pager #[phone] Cosigned by Heather Sandoval, PhD at 11/30/2021 10:06 EDT Associated attestation - Heather Sandoval, PhD - 11/30/2021 1006 EDT I have read and reviewed this note. Clinical supervision will include discussion of this session. Iconcur with the product management intern's findings and treatment plan. Services provided were routine and within thecompetence of this product management intern. Heather Sandoval, Ph.D. Licensed Psychologist-Doctorate Clinical Toll Testboard Worker * Marleny Yoon - 11/29/2021 1109 EDT Phone call this morning with Miriam Lofton at [facility]; inquired about [facility] placement as patient is stilling team that is her plan. Miriam said they offered this as an option and [facility] came to visit with Miriam last week. She is not sure if any actions have been taken since this conversation. Requested she follow up with Madi[facility] and update with plan, bed availability, etc. Marleny Yoon, INFORMATION TECHNOLOGY TECHNICIAN #[id number] * Adrienne Luna MD - 11/29/2021 0550 EDT Antepartum Progress Note CC: NRFA, severe FGR, admitted for TID NST HD: 17 S: No new complaints. Wondering about planning with Madi[facility], provided numbers to call. +FM. Denies contractions, LOF or VB. O: Patient Vitals for the past 24 hrs: BP Temp Temp src Resp SpO2 11/29/21103 104/65 35.9 ??C (96.6 ??F) Tympanic 18 96 % 11/29/21 0103 -- -- -- -- 96 % 11/28/21 1814 -- -- -- -- 100 % 11/28/21 1809 -- -- -- -- 100 % 11/28/21 1804 -- -- -- -- 100 % 11/28/21 1759 -- -- -- -- 100 % 11/28/21 1754 -- -- -- -- 100 % 11/28/21 1749 -- -- -- -- 100 % 11/28/21 1515 101/53 36.5 ??C (97.7 ??F) Temporal 18 99 % 11/28/21 1208 -- -- -- -- 100 % 11/28/21 1203 -- -- -- -- 100 % 11/28/21 1158 -- -- -- -- 100 % 11/28/21 1153 -- -- -- -- 100 % 11/28/21 1148 -- -- -- -- 100 % 11/28/21 1143 -- -- -- -- 100 % 11/28/21 1138 -- -- -- -- 97 % 11/28/21 1133 -- -- -- -- 100 % 11/28/21 1128 -- -- -- -- 100 % 11/28/21 1123 -- -- -- -- 100 % 11/28/21 1118 -- -- -- -- 100 % 11/28/21 1113 -- -- -- -- 100 % 11/28/21 1108 -- -- -- -- 100 % 11/28/21 1103 -- -- -- -- 100 % 11/28/21 1058 -- -- -- -- 100 % 11/28/21 0715 98/46 36.7 ??C (98.1 ??F) Temporal 18 97 % UOP: multiple spontaneous voids GEN: A&Ox3, NAD CV: Regular rate ABD: Soft, nondistended, nontender to palpation Extremities: warm, nontender Labs: No new labs Imaging: US 11/13/21: EFW <1%ile, normal UA dopplers, CHAS 9 11/23: cephalic, normal UA, MCA, and ductus venosus dopplers A/P: 26 y.o. woman at 28w1d admitted for monitoring in the setting of severe FGR and NRFA. FHT initially persistently non-reactive, but now with reactive NSTs. Dopplers wnl, furtherindicating that prolonging gestation preferable to delivery. Low suspicion for fetomaternal hemorrhage. Will continue TID NST. FWB: FGR <1%ile, normal dopplers - NSTs with intermittent deep variables to the 60s and intermittent late decels. Would bring to L&D for CEFM and consideration of delivery if FHT worsened compared to baseline - S/p 12hrs mag 11/14 and 11/15 - Restart Mag if moving towards delivery prior to 32wks - s/p BMZ 11/13-11/14 - Eligible for rescue steroids if appears to be moving toward delivery - KB negative - CMV and toxo neg - Repeat dopplers today. ?? Polysubstance use - Heroin, fentanyl, and cocaine use prior to admission - On methadone through [facility] - Methadone 150mg IP/MOSAIC TECHNICIAN -> increased to 160 in split dosing 11/14, currently stable on dose - SW consulted ?? Depression/anxiety Not on meds currently although patient reports a remote history of bipolar disorder on Abilify - Med psych consulted - Obtain mental health records from [facility] ?? COVID in - COVID + 10/11/21 ?? Hep C - Viral load 96k at 13wga ?? Iron deficiency anemia: Hct 11/20 34 - PO Fe supplementation Global - Tdap due, ordered. Pt will get before d/c - Passed 1hr gtt - Rh pos - GBS neg Dispo: Planning discharge to [facility] pending placement DVT ppx: ambulation, declined heparin Marina Daley, MS4 I was present with the medical student for the history, exam, and medical decision making documented by the student. I have edited the student note as appropriate. ADRIENNE LUNA MD Cosigned by Beverly Ribera MD at 11/29/2021 12:52 EDT Associated attestation - Beverly Ribera MD - 11/29/2021 1252 EDT Pt seen and agree. 26 yo now at 28+1 weeks (dating reviewed, EDC 02/20/2022 based on 12 week US -- LMP was approximate). Now HD#17 after admission for non reassuring status in context of polysubstance use and severe FGR. S/p BMZ. Ongoing monitoring has become reassuring over the last week. Blood pressure 106/56, temperature 36.5 ??C (97.7 ??F), temperature source Temporal, resp. rate 18,height 168.9 cm (66.5), weight 56.7 kg (125 lb), last menstrual period 05/12/2021, SpO2 100 %. US today: breech presentation, CHAS 18. Umbilical artery and DV dopplers normal. CPI normal. NST: moderate variability, reassuring without decelerations At this point, status is reassuring although requires ongoing close follow up. Discharge planning began last week with goal to discharge to [facility] with daily NSTs in office and weekly dopplers, APV, and growth scans q3 weeks. Will continue to pursue discharge planning with case management. May be ready for discharge tomorrow if placement available. * Sherri Coleman RN - 11/29/2021 0139 EDT 0000 Patient requested NST be performed at 0100. 0105 Nurse entered room to obtain NST and then left the room. 0115 Nurse brought two chocolate ice creams to patient. 0210 Patient requested SCD cuffs be placed on but explained to the nurse that the ones she currently have do not fit. RN called pediatric unit and was able to receive a size medium SCD cuff that fit the patient. SCD cuffs in place and SCD machine turned on. * Tabitha Corcoran RN - 11/28/2021 1836 EDT NST Report Baseline Heart Rate: 125 Accelerations: present Movement: present Decelerations: Present; variable Contractions: irritability Interpretation: reactive Co-sign Provider (Physician Name): Dr Abhilash Espinoza here @ 28 weeks with NRFA and history of substance abuse. monitor strip 17:48- 18:17 TABITHA CORCORAN RN Cosigned by Abhilash Espinoza MD at 11/29/2021 2:00 EDT * Yana Peterson RN - 11/28/2021 1252 EDT NST Report On nst [id number]. Pt. Sitting, small pillow under hip. Baseline Heart Rate: 130 Accelerations: PRESENT Movement: PRESENT Decelerations: Variables, dr tobar aware , saw strip Contractions: Irritability no ctx. [place] or palpated, pt. Sitting forward, moving in bed. Interpretation: REACTIVE Co-sign Provider (Physician Name):rafy PETERSON RN Cosigned by Rafy Daley MD at 11/28/2021 17:43 EDT Associated attestation - Rafy Daley MD - 11/28/2021 1743 EDT I reviewed the above NST. It is reactive with occasional variable decels, which are not clinically significant given duration <60 sec, depth <60 bpm and kimi >60 bpm. I agree with the assessment. Will continue TID NSTs and check carefully for evolution of decels. Rafy Daley MD Obstetrics/Gynecology * Nadiya Santos MD - 11/28/2021 0503 EDT Antepartum Progress Note CC: NRFA, severe FGR, admitted for TID NST HD: 16 S: No new complaints. +FM. Denies contractions, LOF or VB. O: Patient Vitals for the past 24 hrs: BP Temp Temp src Resp SpO2 11/28/21 0147 95/49 36 ??C (96.8 ??F) [facility] 18 95 % 11/27/21 1743 -- -- -- -- 100 % 11/27/21 1738 -- -- -- -- 99 % 11/27/21 1733 -- -- -- -- 100 % 11/27/21 1729 106/56 36.7 ??C (98.1 ??F) [facility] -- -- 11/27/21 1728 -- -- -- -- 100 % 11/27/21 1725 -- -- -- -- 100 % 11/27/21 1720 -- -- -- -- 99 % 11/27/21 1052 -- -- -- -- 100 % 11/27/21 1047 -- -- -- -- 100 % 11/27/21 1042 -- -- -- -- 100 % 11/27/21 1037 -- -- -- -- 100 % 11/27/21 1032 -- -- -- -- 100 % 11/27/21 1027 -- -- -- -- 100 % 11/27/21 1022 -- -- -- -- 100 % 11/27/21 1017 -- -- -- -- 100 % 11/27/21 1012 -- -- -- -- 100 % 11/27/21 1007 -- -- -- 18 97 % 11/27/21 1006 108/60 -- -- -- -- 11/27/21 0936 -- 36.2 ??C (97.2 ??F) [facility] 18 -- UOP: multiple spontaneous voids GEN: A&Ox3, NAD CV: Regular rate ABD: Soft, nondistended, nontender to palpation Extremities: warm, nontender Labs: No new labs Imaging: US 11/13/21: EFW <1%ile, normal UA dopplers, CHAS 9 11/23: cephalic, normal UA, MCA, and ductus venosus dopplers A/P: 26 y.o. woman at 28w0d admitted for monitoring in the setting of severe FGR and NRFA. FHT has been persistently non-reactive, but with reassuring stability with minimal variability, intermittent variables, and intermittent late morphology decels. Dopplers wnl, further indicating that prolonging gestation preferable to delivery. Low suspicion for fetomaternal hemorrhage. Will continue TID NST. FWB: FGR <1%ile, normal dopplers - NSTs with intermittent deep variables to the 60s and intermittent late decels. Would bring to L&D for CEFM and consideration of delivery if FHT worsened compared to baseline - S/p 12hrs mag 11/14 and 11/15 - Restart Mag if moving towards delivery prior to 32wks - s/p BMZ 11/13-11/14 - Eligible for rescue steroids if appears to be moving toward delivery - KB negative - CMV and toxo neg - Weekly dopplers (next due 11/29) ?? Polysubstance use - Heroin, fentanyl, and cocaine use prior to admission - On methadone through [facility] - Methadone 150mg IP/MOSAIC TECHNICIAN -> increased to 160 in split dosing 11/14, currently stable on dose - SW consulted ?? Depression/anxiety Not on meds currently although patient reports a remote history of bipolar disorder on Abilify - Med psych consulted - Obtain mental health records from [facility] ?? COVID in - COVID + 10/11/21 ?? Hep C - Viral load 96k at 13wga ?? Iron deficiency anemia - Fe supplementation Global - Tdap due, ordered - Passed 1hr gtt - Rh pos - GBS neg Dispo: guarded, pending resolution of decels on daily NSTs. If no decels for a few days, then couldconsider discharge to [facility] DVT ppx: ambulation, declined heparin Nadiya Santos MD 11/28/21 5:06 OBGYN PGY1 Pager #[phone] Cosigned by Rafy Daley MD at 11/28/2021 17:43 EDT Associated attestation - Rafy Daley MD - 11/28/2021 1743 EDT I saw and examined the patient and reviewed her vitals and labs on 11/28/21. I agree with the findings and plan of care as documented in Dr Santos's note. 26 y.o. at 28w0d gestation admittedwith severe FHR and maternal substance use disorder. AM NST reactive with occasional variable decels, which are not clinically significant given duration <60 sec, depth <60 bpm and kimi >60bpm. Will continue TID NSTs and check carefully for evolution of decels.. Awaiting placement at [facility]. Rafy Daley MD Obstetrics/Gynecology * Rafy Stubbs MD - 11/28/2021 0339 EDT NST Report Baseline Heart Rate: 120 Accelerations: present Movement: present Decelerations: Variables Contractions: absent Interpretation: reactive NST from [id number] Co-sign Provider (Physician Name): GLO LOOMIS RN [facility] attending NST on [id number] from 157 to 236 I have reviewed the non-stress test tracing above and agree with the interpretation as baseline 120and reactive. Rafy Stubbs MD 11/29/2021 9:21 * Ryanne Mcintyre RN - 11/27/2021 1827 EDT NST Report Baseline Heart Rate: 125 Accelerations: present Movement: present Decelerations: variable Contractions: absent Interpretation: reactive NST [id number] Co-sign Provider (Physician Name): RYANNE MCINTYRE RN Cosigned by Ann Tyson MD at 11/27/2021 19:59 EDT Associated attestation - Ann Tyson MD - 11/27/2021 1959 EDT I have personally reviewed the FHT tracing and agree with the above interpretation. Ann Tyson MD * Yana Peterson RN - 11/27/2021 1308 EDT NST Report ON NST [id number], PT. SITTING Baseline Heart Rate: 130 Accelerations: PRESENT Movement: PRESENT Decelerations: VARIABLE HEARD WHILE IN ROOM ONCE. QUICK RETURN TO BASELINE Contractions: IRRITABILITY Interpretation: OB NST NOT REACTIVE. DR MOE REVIEWED STRIP AND SAID SHE COULD COME OFF. SHE IS ON TID NST. Co-sign Provider (Physician Name):DR ADRIANA PETERSON RN Cosigned by Ann Tyson MD at 11/27/2021 14:03 EDT Associated attestation - Ann Tyson MD - 11/27/2021 1403 EDT I have personally reviewed the FHT tracing and agree with the above interpretation. Not-reactive but reassuring and similar to prior NSTs. No evidence of declining status. Ann Tyson MD * Ann Tyson MD - 11/27/2021 0633 EDT Antepartum Progress Note CC: NRFA, severe FGR, admitted for TID NST HD: 15 S: Denies complaints. +FM. Denies contractions, LOF or VB. O: Patient Vitals for the past 24 hrs: BP Temp Temp src Resp SpO2 11/26/212009 98/54 36.4 ??C (97.5 ??F) Temporal 16 97 % 11/26/21 1812 111/59 36.3 ??C (97.3 ??F) Temporal 16 -- 11/26/21 1146 110/59 36.3 ??C (97.3 ??F) Temporal 18 98 % 11/26/21 1047 109/53 36.9 ??C (98.4 ??F) Temporal 16 99 % UOP: multiple spontaneous voids GEN: A&Ox3, NAD CV: Regular rate ABD: Soft, nondistended, nontender to palpation Extremities: warm, nontender Labs: No new labs Imaging: US 11/13/21: EFW <1%ile, normal UA dopplers, CHAS 9 11/23: cephalic, normal UA, MCA, and ductus venosus dopplers A/P: 26 y.o. woman at 27w6d admitted for monitoring in the setting of severe FGR and NRFA. FHT has been persistently non-reactive, but with reassuring stability with minimal variability, intermittent variables, and intermittent late morphology decels. Dopplers wnl, further indicating that prolonging gestation preferable to delivery. Low suspicion for fetomaternal hemorrhage. Will continue TID NST. FWB: FGR <1%ile, normal dopplers - NSTs with intermittent deep variables to the 60s and intermittent late decels. Would bring to L&D for CEFM and consideration of delivery if FHT worsened compared to basline - S/p 12hrs mag 11/14 and 11/15 - Restart Mag if moving towards delivery prior to 32wks -s/p BMZ 11/13-11/14 - Eligible for rescue steroids if appears to be moving toward delivery - KB negative - CMV and toxo neg - Weekly dopplers (next due 11/29) ?? Polysubstance use - Heroin, fentanyl, and cocaine use prior to admission - On methadone through [facility] clinic - Methadone 150mg IP/MOSAIC TECHNICIAN -> increased to 160 in split dosing 11/14, currently stable on dose - SW consulted ?? Depression/anxiety Not on meds currently although patient reports a remote history of bipolar disorder on Abilify - Med psych consulted - Obtain mental health records from [facility] ?? COVID in - COVID + 10/11/21 ?? Hep C - Viral load 96k at 13wga ?? Iron deficiency anemia - Fe supplementation Global - Tdap due - Passed 1hr gtt - Rh pos - GBS neg Dispo: guarded, pending resolution of decels on daily NSTs. If no decels for a few days, then couldconsider discharge DVT ppx: ambulation, declined heparin Yuni Jones MD 11/27/21 6:36 Obstetrics & Gynecology, PGY-1 Pager #[phone] Attestation statement: I saw and examined the patient. I agree with the resident's/fellow's findings and plans as documented above. Ann Tyson MD * Rafy Stubbs MD - 11/26/2021 1838 EDT NST Report Baseline Heart Rate: 135 Accelerations: present Movement: present Decelerations: present Contractions: absent Interpretation: Reactive [id number] Co-sign Provider (Physician Name): MD JOSELUIS Fowler RN THis is a duplicate note Rafy Stubbs MD 11/26/2021 18:42 * Rafy Stubbs MD - 11/26/2021 1834 EDT NST Report Baseline Heart Rate: 125 Accelerations: present Movement: present Decelerations: present Contractions: irritability Interpretation: Reactive [id number] Co-sign Provider (Physician Name): MD JOSELUIS Fowler, ALLEN M attending NST on [id number] from 1809 to 1829 I have reviewed the non-stress test tracing above and agree with the interpretation as baseline 125and reactive. Rafy Stubbs MD 11/26/2021 18:40 * Rafy Stubbs MD - 11/26/2021 1212 EDT NST Report Baseline Heart Rate: 135 Accelerations: present Movement: present Decelerations: present Contractions: absent Interpretation: reactive [id number] Co-sign Provider (Physician Name): MD JOSELUIS Fowler, RN MFM attending NST on [id number] from 1045 to 1114 I have reviewed the non-stress test tracing above and agree with the interpretation as reactive, although I would have called baseline 130 . Rafy Stubbs MD 11/26/2021 13:47 * Marleny Yoon - 11/26/2021 0939 EDT Yesterday stopped to see patient and drop housing applications that she previously requested. She asked about a journal to write in, let her know that I would look for one and drop it off tomorrow. Dropped notebook and other supplies from [employer] in her room, Karin was resting so didnot disturb. Phone call with Miriam Lofton at [facility] ([phone]) to update that at this time team is not planningto discharge patient, will update if this changes. Marleny Yoon, INFORMATION TECHNOLOGY TECHNICIAN #[id number] * Marina Daley - 11/26/2021 0602 EDT Antepartum Progress Note CC: NRFA, severe FGR, admitted for TID NST HD: 14 S: Denies complaints. +FM. Denies contractions, LOF or VB. O: Patient Vitals for the past 24 hrs: BP Temp Temp src Resp SpO2 11/26/21 0159 123/52 36.2 ??C (97.2 ??F) Temporal 18 96 % 11/25/21 2009 108/70 36.8 ??C (98.2 ??F) Temporal 16 97 % 11/25/21 1803 128/72 37.2 ??C (99 ??F) Temporal 16 100 % 11/25/21 1544 105/63 36.8 ??C (98.2 ??F) 18 -- 11/25/21 1048 -- -- -- -- 100 % 11/25/21 1043 -- -- -- -- 100 % 11/25/21 1038 -- -- -- -- 100 % 11/25/21 1033 -- -- -- -- 100 % 11/25/21 1028 -- -- -- -- 100 % 11/25/21 1023 -- -- -- -- 100 % 11/25/21 1018 -- -- -- -- 100 % 11/25/21 1015 -- -- -- -- 100 % 11/25/21 1010 -- -- -- -- 100 % 11/25/21 0843 -- -- -- -- 98 % 11/25/21 0841 98/52 36.4 ??C (97.5 ??F) 97 % UOP: multiple spontaneous voids GEN: A&Ox3, NAD CV: Regular rate ABD: Soft, nondistended, nontender to palpation Extremities: warm, nontender nonerythematous bilateral LE, +2 DP bilaterally Labs: No new labs Imaging: US 11/13/21: EFW <1%ile, normal UA dopplers, CHAS 9 11/23: cephalic, normal UA, MCA, and ductus venosus dopplers A/P: 26 y.o. woman at 27w5d admitted for monitoring in the setting of severe FGR and NRFA. FHT has been persistently non-reactive, but with reassuring stability with minimal variability, intermittent variables, and intermittent late morphology decels. Dopplers wnl, further indicating that prolonging gestation preferable to delivery. Low suspicion for fetomaternal hemorrhage. Will continue TID NST. FWB: FGR <1%ile, normal dopplers - NSTs with intermittent deep variables to the 60s and intermittent late decels. Would bring to L&D for CEFM and consideration of delivery if FHT worsened compared to basline - S/p 12hrs mag 11/14 and 11/15 - Restart Mag if moving towards delivery prior to 32wks -s/p BMZ 11/13-11/14 - Eligible for rescue steroids if appears to be moving toward delivery - KB negative - CMV and toxo neg - Weekly dopplers (next due 11/29) ?? Polysubstance use - Heroin, fentanyl, and cocaine use prior to admission - On methadone through [facility] - Methadone 150mg IP/MOSAIC TECHNICIAN -> increased to 160 in split dosing 11/14, currently stable on dose - SW consulted ?? Depression/anxiety Not on meds currently although patient reports a remote history of bipolar disorder on Abilify - Med psych consulted - Obtain mental health records from [facility] ?? COVID in - COVID + 10/11/21 ?? Hep C - Viral load 96k at 13wga ?? Iron deficiency anemia - Fe supplementation Global - Tdap due - Passed 1hr gtt - Rh pos - GBS neg Dispo: guarded, pending resolution of decels on daily NSTs. If no decels for a few days, then couldconsider discharge DVT ppx: ambulation, declined heparin Marina Daley, MS4 Acting Administrative Job Titles Cosigned by Rafy Stubbs MD at 11/26/2021 12:53 EDT Associated attestation - Rafy Stubbs MD - 11/26/2021 1253 EDT Attending Attestation: I was present with the medical student for the history, exam, and medical decision making documented by her. I have personally performed my own physical exam and medical decision making. I have verified, edited and agree with the medical student???s documentation. After our [facility] team meeting, we decided we would watch her over the weekend and then next week reassess on Monday. We will likely look to see if she can get placement at [facility]. They met with her yesterday, so they are in the loop. Rafy Stubbs MD 11/26/2021 12:50 * Rafy Stubbs MD - 11/26/2021 0228 EDT NST Report Baseline Heart Rate: 130 Accelerations: present Movement: present Decelerations: absent Contractions: irritability Interpretation: Reactive NST from [id number] Co-sign Provider (Physician Name): MD EVON STUBBS RN [facility] attending NST on [id number] from 205 to 232 I have reviewed the non-stress test tracing above and agree with the interpretation as baseline 130and reactive. Rafy Stubbs MD 11/26/2021 6:54 * Rafy Stubbs MD - 11/25/2021 1849 EDT NST Report Baseline Heart Rate: 135-140 Accelerations: absent Movement: present Decelerations: Present, ? Variable (not connected) Contractions: absent , irritable uterus Interpretation: not reactive Co-sign Provider (Physician Name): Cesar MCNAMARA RN [facility] attending NST on [id number] from 1800 to 1838 I have reviewed the non-stress test tracing above and agree with the interpretation as baseline 135but I would have interpreted it as reactive. Rafy Stubbs MD 11/26/2021 6:56 * Rafy Stubbs MD - 11/25/2021 1203 EDT NST Report on nst [id number] Comer review nst before taking the pt. Off, p. Had only wanted to be on 20 minutes Pt. Sitting. Baseline Heart Rate: 130 Accelerations: PRESENT Movement: PRESENT Decelerations: At 1035 baby heart rate went down to 105-110 range, back to baseline in 80 seconds but dropped to 105 while I was in the room later and returned to baseline. Pt. Had only wanted to be on the monitor for 20 minutes she said because on tid. Contractions: No ctx. [place] or palpated but there is a lot of irritability. interpretation: At end of strip heart rate did go up to 140 twice . Reactive . Co-sign Provider (Physician Name): dr cesar PETERSON RN MFM attending NST on [id number] from 1009 to 1050 I have reviewed the non-stress test tracing above and agree with the interpretation as baseline 130and reactive. Rafy Stubbs MD 11/25/2021 12:19 * Faviola Cain RN - 11/25/2021 0954 EDT I checked in with Karin today in her room on B7. Pt states she has made several calls re: setting up community resources. Pt states DCF is planning to meet with pt in her room on B7 today at 1330. Pt states she has called [facility] and has an intake appt on 11/30. Pt states that she has emergency housing through 12/10 and talked with economic services yesterday re: an extension, they are to call her back today. Pt will call the [facility] today to obtain an address after which time she will apply for [employer]. Pt has been given an EDS paper application to begin filling out. She has been given a 211 brochure and the website as well as a handout for her local food shelves. Pt states that at this time her d/c date has not been determined. CM/SW to continue to follow through hospital stay. Faviola Cain lineworker [phone] Pager [phone] * Anamika Wang MD - 11/25/2021 0604 EDT Antepartum Progress Note CC: NRFA, severe FGR, admitted for TID NST HD: 13 S: Denies complaints. +FM. Denies contractions, LOF or VB. O: Patient Vitals for the past 24 hrs: BP Temp Temp src Resp SpO2 11/25/21 0111 106/57 36.7 ??C (98.1 ??F) Temporal 16 97 % 11/24/21 1704 103/58 36.9 ??C (98.4 ??F) Temporal 16 95 % 11/24/21 0920 99/58 36.7 ??C (98.1 ??F) Temporal 16 96 % UOP: multiple spontaneous voids GEN: A&Ox3, NAD CV: Regular rate ABD: Soft, nondistended, nontender to palpation Extremities: warm, nontender nonerythematous bilateral LE, +2 DP bilaterally Labs: No new labs Imaging: US 11/13/21: EFW <1%ile, normal UA dopplers, CHAS 9 11/23: cephalic, normal UA, MCA, and ductus venosus dopplers A/P: 26 y.o. woman at 27w4d admitted for monitoring in the setting of severe FGR and NRFA. FHT has been persistently non-reactive, but with reassuring stability with minimal variability, intermittent variables, and intermittent late morphology decels. Dopplers wnl, further indicating that prolonging gestation preferable to delivery. Low suspicion for fetomaternal hemorrhage. Will continue TID NST. FWB: FGR <1%ile, normal dopplers -NSTs with intermittent deep variables to the 60s and intermittent late decels. Would bring to L&D for CEFM and consideration of delivery if FHT worsened compared to basline -s/p 12hrs mag 11/14 and 11/15 -restart Mag if moving towards delivery prior to 32wks -s/p BMZ 11/13-11/14 -eligible for rescue steroids if appears to be moving toward delivery -KB negative -CMV and toxo neg -weekly dopplers (next due 11/29) ?? Polysubstance use -heroin, fentanyl, and cocaine use prior to admission -on methadone through [facility] -methadone 150mg IP/MOSAIC TECHNICIAN -> increased to 160 in split dosing 11/14, currently stable on dose -SW consulted ?? Depression/anxiety -not on meds currently -med psych consulted ?? COVID in -COVID + 10/11/21 ?? Hep C -viral load 96k at 13wga ?? Iron deficiency anemia -Fe supplementation Global -s/p Tdap -passed 1hr gtt -Rh pos -GBS neg Dispo: guarded, pending resolution of decels on daily NSTs. If no decels for a few days, then couldconsider discharge DVT ppx: ambulation, declined heparin Anamika Wang MD Tableau Administrator PGY-2 Pager [phone] Cosigned by Rafy Stubbs MD at 11/25/2021 10:12 EDT Associated attestation - Rafy Stubbs MD - 11/25/2021 1012 EDT MFM Attending I have seen and examined Ms. Karin Dixon. I have read and agree with Dr. Wang's notes and plan documented above. She did have one slight drop in the heart for a minute or 2 with great variability and accelerations on one of her NSTs within the past 24 hours, but otherwise has been reassuring. We will discuss as MFM practice tomorrow, but for now, frequent monitoring is the best approach. Rafy Stubbs MD 11/25/2021 10:10 * Rafy Stubbs MD - 11/25/2021 0153 EDT NST Report Baseline Heart Rate: 130bpm Accelerations: present Decelerations: absent Movement: present Contractions: x1 for 40 secs. Pt denies feeling CTX. Interpretation: reactive NST 11/25/2021 [id number] MFM attending NST on [id number] from 0110 to 0140 I have reviewed the non-stress test tracing above and agree with the interpretation as baseline 130and reactive. Rafy Stubbs MD 11/25/2021 7:40 * Wesley Peacock RN - 11/24/2021 2327 EDT 23:20 - Assumed care of pt from Chioma Kauffman RN. Handoff report received. Pt resting at this time. NST due at 0100. 01:10 - Pt placed on NST. Pt denies CTX, LOF or VB. Pt reports +FM. Pt given tylenol for tooth pain, rating 11/19. 01:40 - NST complete. Dr. Alfred reviewed the tracing. 06:40 - Pt rounded on hourly throughout the shift. Pt resting comfortably with no complaints at this time. * Rafy Stubbs MD - 11/24/2021 1824 EDT NST Report Baseline Heart Rate: 125 Accelerations: present Movement: present Decelerations: Present - variables noted Contractions: irritability Interpretation: Reactive NST 11/24/21 [id number] Co-sign Provider (Physician Name): Rafy ANDRADE RN M attending NST on [id number] from 1723 to 180 I have reviewed the non-stress test tracing above and agree with the interpretation as baseline 125and reactive. There is a decel from 1737 to 1739 down to 100. Rafy Stubbs MD 11/25/2021 7:42 * Berkley Jett INFORMATION TECHNOLOGY TECHNICIAN - 11/24/2021 1402 EDT SW received call this morning from [phone] who requested to visit pt either today or tomorrow. SW spoke to discharge door operator, who indicated no acute medical changes at this time that would interfere with this visit. SW met with pt briefly and provided update that DCF had reached out to this teletypewriter operator and would be calling the pt directly to arrange a visit; pt aware. SW called DCF worker and provided her with the direct phone number for the pts room to schedule visit. B7 Charge updated on pending visit either today or tomorrow from [facility]. * Rafy Stubbs MD - 11/24/2021 1134 EDT NST Report Baseline Heart Rate: 135 Accelerations: present Movement: present Decelerations: Present, variables noted Contractions: irritability Interpretation: Non-reactive, additional Monitoring (20 min past decel) per MD Wang for decels noted. Reassuring strip. Co-sign Provider (Rafy Stubbs): [phone] KELLY FOY RN MFM attending NST on [id number] from 1029 to 1120 I have reviewed the non-stress test tracing above and agree with the interpretation as baseline 135but I would interpret the tracing as reactive. Rafy Stubbs MD 11/24/2021 11:43 * Anamika Wang MD - 11/24/2021 0556 EDT Antepartum Progress Note CC: NRFA, severe FGR, admitted for TID NST HD: 12 S: Denies complaints. Sleepy this morning. +FM. Denies contractions, LOF or VB. O: Patient Vitals for the past 24 hrs: BP Temp Temp src Resp SpO2 11/24/21 0122 105/64 35.8 ??C (96.4 ??F) Temporal 18 96 % 11/23/21 1813 105/59 36.6 ??C (97.9 ??F) Temporal 16 99 % 11/23/21 0915 94/44 36.4 ??C (97.5 ??F) Temporal 14 -- 11/23/2114 -- -- -- -- 98 % UOP: multiple spontaneous voids GEN: A&Ox3, NAD CV: Regular rate ABD: Soft, nondistended, nontender to palpation Extremities: warm, nontender nonerythematous bilateral LE, +2 DP bilaterally Labs: No new labs Imaging: US 11/13/21: EFW <1%ile, normal UA dopplers, CHAS 9 11/23: cephalic, normal UA, MCA, and ductus venosus dopplers A/P: 26 y.o. woman at 27w3d admitted for monitoring in the setting of severe FGR and NRFA. FHT has been persistently non-reactive, but with reassuring stability with minimal variability, intermittent deep variables, and intermittent late morphology decels. Dopplers wnl, further indicating that prolonging gestation preferable to delivery. Low suspicion for fetomaternal hemorrhage. Will continue TID NST. FWB: FGR <1%ile, normal dopplers -NSTs with intermittent deep variables to the 60s and intermittent late decels. Would bring to L&D for CEFM and consideration of delivery if FHT worsened compared to basline -s/p 12hrs mag 11/14 and 11/15 -restart Mag if moving towards delivery prior to 32wks -BMZ complete, s/p BMZ 11/13-11/14 -eligible for rescue steroids if appears to be moving toward delivery -KB negative -CMV and toxo neg ?? Polysubstance use -heroin, fentanyl, and cocaine use prior to admission -on methadone through [facility] clinic -methadone 150mg IP/MOSAIC TECHNICIAN -> increased to 160 in split dosing 11/14, currently stable on dose -normal QTc on EKG 11/15 -SW consulted -desires inpatient rehab on discharge ?? Depression/anxiety -not on meds currently -med psych consulted, will give recommendations on diagnosis and treatment ?? COVID in -COVID + 10/11/21 ?? Hep C -viral load 96k at 13wga ?? Iron deficiency anemia -Fe supplementation Global -s/p Tdap -passed 1hr gtt -Rh pos -GBS neg Dispo: guarded, pending FHT. If she continues to have NSTs without deep decels for the next few days could dc. DVT ppx: ambulation, declined heparin Marina Daley, MS4 Acting Administrative Job Titles Cosigned by Rafy Stubbs MD at 11/24/2021 8:59 EDT Associated attestation - Rafy Stubbs MD - 11/24/2021 0859 EDT MFM Attending Attestation: I was present with the medical student for the history, exam, and medical decision making documented by her. I have personally performed my own physical exam and medical decision making. I have verified, edited and agree with the medical student???s documentation. If the tracing continues to be reassuring without the late decelerations, we will reassess status on Monday and consider discharge when we have our team meeting. Rafy Stubbs MD 11/24/2021 8:58 * Rafy Stubbs MD - 11/24/2021 0219 EDT NST Report Baseline Heart Rate: 130 Accelerations: absent Movement: present Decelerations: absent Contractions: irritability Interpretation: not reactive, minimal variability, Aware NST Co-sign Provider (Physician Name): MD EVON STUBBS RN MFM attending NST on [id number] from 134 to 213 I have reviewed the non-stress test tracing above and agree with the interpretation as reactive, but I would have called baseline 125. Rafy Stubbs MD 11/24/2021 11:19 ' * Rafy Stubbs MD - 11/23/2021 1933 EDT NST Report Baseline Heart Rate: 125 Accelerations: absent Movement: present Decelerations: present Contractions: irritability Interpretation: not reactive [id number] Co-sign Provider (Physician Name): Cesar KIRKLAND RN MFM attending NST [id number] from 1805 to 1900 I have reviewed the non-stress test tracing above; however, I would have called the tracing reactive given her gestational age with a baseline that started at 125 and was later 130. Rafy Stubbs MD 11/24/2021 11:22 [id number] * Berkley Jett MSW - 11/23/2021 1406 EDT SW checked in with pt this morning. Pt reported that she plans on making some more follow up calls today to connect to resources; pt had no questions/concerns for this teletypewriter operator at this time. SW reviewed with pt that given her positive toxicology screen on intake that DCF would need to be notified; pt is aware. SW called and made report to DCF today (intake #[id number]), and provided report on positive steps pt has taken since arriving at [facility]. * Rafy Stubbs MD - 11/23/2021 1045 EDT NST Report Baseline Heart Rate: 130 Accelerations: present Movement: present Decelerations: present Contractions: irritability Interpretation: not reactive Co-sign Provider (Physician Name): Cesar SEGURA RN MFM attending NST on [id number] from 936 to 1016 I have reviewed the non-stress test tracing above and agree with the interpretation as baseline 130and non-reactive. There is normal variability for gestational age. Rafy Stubbs MD 11/23/2021 12:45 * Anamika Wang MD - 11/23/2021 0551 EDT Antepartum Progress Note CC: NRFA, severe FGR, admitted for TID NST HD: 11 S: Denies complaints. Ambulated through hospital yesterday. Boyfriend came to visit, which improvedher mood. Denies contractions, LOF or VB. O: Patient Vitals for the past 24 hrs: BP Temp Temp src Resp SpO2 11/23/21 0135 103/52 36.3 ??C (97.3 ??F) Temporal 14 97 % 11/22/21 1957 105/59 36.5 ??C (97.7 ??F) Temporal 16 97 % 11/22/21 1552 107/60 36.3 ??C (97.3 ??F) Temporal 16 98 % 11/22/21 0900 129/71 36.2 ??C (97.2 ??F) Temporal 18 97 % UOP: multiple spontaneous voids GEN: A&Ox3, NAD CV: Regular rate ABD: Soft, nondistended, nontender to palpation Labs: No new labs Imaging: US 11/13/21: EFW <1%ile, normal UA dopplers, CHAS 9 11/23: cephalic, normal UA, MCA, and ductus venosus dopplers A/P: 26 y.o. woman at 27w2d admitted for monitoring in the setting of severe FGR and NRFA. FHT has been persistently non-reassuring with minimal variability, intermittent deep variables, and intermittent late morphology decels. Dopplers wnl, further indicating that prolonging gestation preferable to delivery. Low suspicion for fetomaternal hemorrhage. Will continue TID NST. FWB: FGR <1%ile, normal dopplers -intermittent deep variables to the 60s and intermittent late decels. Would bring to L&D for CEFM and consideration of delivery if FHT worsened compared to basline -s/p 12hrs mag 11/14 and 11/15 -restart Mag if moving towards delivery prior to 32wks -BMZ complete, s/p BMZ 11/13-11/14 -eligible for rescue steroids if appears to be moving toward delivery -KB negative -CMV and toxo neg ?? Polysubstance use -heroin, fentanyl, and cocaine use prior to admission -on methadone through [facility] -methadone 150mg IP/MOSAIC TECHNICIAN -> increased to 160 in split dosing 11/14, currently stable on dose -normal QTc on EKG 11/15 -SW consulted -desires inpatient rehab on discharge ?? Depression/anxiety -not on meds currently -med psych consulted, will give recommendations on diagnosis and treatment ?? COVID in -COVID + 10/11/21 ?? Hep C -viral load 96k at 13wga ?? Iron deficiency anemia -Fe supplementation Global -s/p Tdap -passed 1hr gtt -Rh pos -GBS neg Dispo: guarded, pending FHT DVT ppx: ambulation, declined heparin Anamika Wang MD Tableau Administrator PGY-2 Pager [phone] Cosigned by Rafy Stubbs MD at 11/23/2021 12:53 EDT Associated attestation - Rafy Stubbs MD - 11/23/2021 1253 EDT MFM Attending I have seen and examined Ms. Karin Dixon. I have read and agree with Dr. Wang's notes and plan documented above. Her last few NSTs have failed to show the longer bradycardias that were present before, so I think if this continues for a few days, we could possibly let her get home. Rafy Stubbs MD 11/23/2021 12:53 * Rafy Stubbs MD - 11/23/2021 0150 EDT NST Report Baseline Heart Rate: 130 Accelerations: absent Movement: present Decelerations: absent Contractions: absent Interpretation: not reactive Monitoring time: [id number] NATACHA LITTLE RN M attending NST on [id number] from 102 to 128 I have reviewed the non-stress test tracing above and agree with the interpretation as baseline 130and non-reactive. Rafy Stubbs MD 11/23/2021 7:49 * Rafy Stubbs MD - 11/22/2021 2239 EDT NST Report Baseline Heart Rate: 135 Accelerations: present Movement: present Decelerations: absent Contractions: irritability Interpretation: reactive Co-sign Provider (Physician Name): Cesar MAJOR RN MFM attending NST on [id number] from 2020 to 2118 I have reviewed the non-stress test tracing above and agree with the interpretation as reactive butwould have called the baseline 130. There is also one variable deceleration present. Rafy Stubbs MD 11/23/2021 7:47 * Berkley Jett, [facility] - 11/22/2021 1539 EDT This teletypewriter operator met with pt and pts s.o. at bedside. Provided pt with note book to help support pt keeptrack of her daily to-do list. Follow up calls: - Pt reportedly called and left another for her ES Outside Production Inspector (Joseluis) today; SW suggested pt attempt to reach out to ES tomorrow morning if she has not yet heard back from Joseluis, as pt would liketo start the process of adding her name to housing wait lists. - Pt will reportedly attempt to reach out to [employer] [facility] again today (to set up general delivery address). - Pt plans to try calling [facility] again today. Scheduled pascale: - [facility] has [facility] with [facility] for later this month. ?? Case management will continue to follow patient until discharge. Please call CM with any questions or concerns. ?? Berkley Jett, MPH, INFORMATION TECHNOLOGY TECHNICIAN, pager [phone]?? * Rafy Stubbs MD - 11/22/2021 1151 EDT NST Report Baseline Heart Rate: 135 Accelerations: absent Movement: present Decelerations: absent Contractions: irritability Interpretation: not reactive Dr Wang aware. Reviewed NST prior to taking pt off monitor. Ok'd pt coming off monitor Co-sign Provider (Physician Name): ANITA SMITH RN MFM attending NST on [id number] from 1029 to 1056 I have reviewed the non-stress test tracing above and agree with the interpretation as baseline 135and non-reactive but normal variability. Rafy Stubbs MD 11/22/2021 14:02 * Rafy Stubbs MD - 11/22/2021 0601 EDT Antepartum Progress Note CC: NRFA, severe FGR, admitted for TID NST HD# 10 S: Sleepy this morning but no complaints. Had a BM last night. Reports ambulating around the room to the bathroom. + movement. Denies contractions, LOF or VB. O: Patient Vitals for the past 24 hrs: BP Temp Temp src Resp SpO2 11/22/21 0127 92/51 36.1 ??C (97 ??F) Temporal 16 -- 11/21/21 1720 97/63 36.4 ??C (97.5 ??F) Temporal 16 100 % 11/21/21 1012 108/69 36.4 ??C (97.5 ??F) Temporal 16 99 % UOP: multiple spontaneous voids GEN: A&Ox3, NAD CV: RRR ABD: Soft, nondistended, nontender to palpation Labs: Results for KARIN DIXON ( ) as of 11/22/2021 06:24 Ref. Range 11/20/2021 10:24 11/20/2021 10:25 Glucose-1hr Gest Scn Latest Ref Range: 50 - 134 mg/dL 91 Glucose Dose Latest Units: grams 50 WBC Latest Ref Range: 4.00 - 12.40 K/cmm 6.91 RBC Latest Ref Range: 3.86 - 5.04 M/cmm 3.89 Hemoglobin Latest Ref Range: 11.6 - 15.2 gm/dL 11.2 (L) HCT Latest Ref Range: 34.9 - 44.4 % 34.3 (L) MCV Latest Ref Range: 81 - 98 fl 88 MCH Latest Ref Range: 26.7 - 33.3 pg 28.8 MCHC Latest Ref Range: 32.1 - 35.9 gm/dL 32.7 RDW-CV Latest Ref Range: <14.7 % 13.6 RDW-SD Latest Ref Range: <50.4 fl 43.7 PLT Latest Ref Range: 141 - 377 K/cmm 295 MPV Latest Ref Range: 9.5 - 12.7 fl 9.8 Imaging: US 11/13/21: EFW <1%ile, normal UA dopplers, CHAS 9 MCA dopplers 11/15: normal A/P: 26 y.o. woman at 27w0d admitted for monitoring in the setting of severe FGR and NRFA. FHT had been overall stable with mild variable decels, though prolonged decel overnight 11/19, with intermittent late decels since. Dopplers wnl, further indicating that prolonging gestation preferable to delivery. Low suspicion for fetomaternal hemorrhage. Will continue TID NST. FWB: FGR <1%ile, normal dopplers -intermittent deep variables to the 60s and intermittent late decels would bring to L&D for CEFM and consideration of delivery if FHT worsened compared to basline -s/p 12hrs mag 11/14 and 11/15 -restart Mag if moving towards delivery prior to 32wks -BMZ complete, s/p BMZ 11/13-11/14 -eligible for rescue steroids 11/21 -KB negative -CMV and toxo neg -UA Dopplers today ?? Polysubstance use -heroin, fentanyl, and cocaine use prior to admission -on methadone through [facility] clinic -methadone 150mg IP/MOSAIC TECHNICIAN -> increased to 160 in split dosing 11/14, currently stable on dose -normal QTc on EKG 11/15 -SW consulted -desires inpatient rehab on discharge ?? Depression/anxiety -not on meds currently -patient declining to restart meds now ?? COVID in -COVID + 10/11/21 ?? Hep C -viral load 96k at 13wga ?? Iron deficiency anemia -Fe supplementation Dispo: originally planning for dc 11/21 with [place] [facility] [place] [facility], now uncertain based on FHT DVT ppx: ambulation, unfractionate heparin BID (patient declining) -most recent platelets 295. Continue to trend platelets weekly Marina Daley MS4 Acting Administrative Job Titles Attending Attestation: I was present with the medical student for the history, exam, and medical decision making documented by her. I have personally performed my own physical exam and medical decision making. I have verified, edited and agree with the medical student???s documentation. We will continue to monitor and plan for discharge when the heart rate tracing allows. Rafy Stubbs MD 11/22/2021 9:19 * Yaa Wilson RN - 11/22/2021 7863 EDT 1939: Assumed care of pt, report received from ALLEN Galdamez. Pt admitted for extended monitoring S/T Severe FGR. [place] [facility] 27 weeks today, GBS neg, RH pos. History of polysubstance use, takes Methadone, and Hep C. Denies blurry vision/RAMOS,epigastric pain, or any pain at this time. +FM. 2002: NST initiated, call holt use and safety discussed with pt, verbal confirmation received. 2041: FHR strip reviewed with Dr. Alfred, per RN ok to remove pt from monitoring and complete NST; no further orders needed at this time. 21:28: Dr. Alfred notified and aware of pt's refusal of scheduled Heparin, no new orders at this time 0357: NST initiated by RN at bedside, chocolate ice cream given to pt per pt request, importance oforal fluid intake reinforced verbally by RN 0406: EFM repositioned at bedside by RN, copious movement noted by RN (auscultation) 4:26: FHR strip reviewed with Dr. Alfred, no new orders at this time, RN ok to remove pt from NST * Patricia Davis RN - 11/21/2021 1338 EDT NST Report Baseline Heart Rate:130 from 6900-3036. Baseline change to 140 from 6803-8842 Accelerations: present Movement: present Decelerations: present Contractions: absent Interpretation: reactive Co-sign Provider (Physician Name): Chioma Banks MD NST [id number] Comments: Pt with decels at 1052 and 1057. Baby very active and doppler needing to be readjusted. Pt also repositioned herself in bed frequently. Enriqueta Plummer MD notified of the decels and wanted pt to stay on the monitor longer. 1120- Dr. Plummer at the bedside discussing tracing w/patient and stated that she would like her to continue to be monitored until 1200. At [address] Plummer called the unit to say that she had reviewed the tracing and gave approval for monitoring to stop at this time. PATRICIA DAVIS RN Cosigned by Trinh Banks MD at 11/21/2021 15:26 EDT * Caitlin Alfred MD - 11/21/2021 0506 EDT Antepartum Progress Note CC: NRFA, severe FGR, admitted for TID NST S: Doing well. Reports active movement. Denies contractions, LOF or VB. Wants to sleep, didn't fall asleep until 3am this morning O: Patient Vitals for the past 24 hrs: BP Temp Temp src Resp SpO2 11/20/21 2345 106/58 36.9 ??C (98.4 ??F) Temporal 16 93 % 11/20/21 2018 113/64 37 ??C (98.6 ??F) Temporal 16 95 % 11/20/21 1710 113/63 36.7 ??C (98.1 ??F) Temporal 18 99 % 11/20/21 0850 97/45 36.2 ??C (97.2 ??F) Temporal 18 97 % UOP: multiple spontaneous voids GEN: A&Ox3, NAD CV: RRR ABD: Soft, nondistended, appropriately gravid Labs: No new labs Imaging: US 11/13/21: EFW <1%ile, normal UA dopplers, CHAS 9 MCA dopplers 11/15: normal A/P: 26 y.o. woman at 27w0d admitted for monitoring in the setting of severe FGR and NRFA. FHT had been overall stable with mild variable decels, though prolonged decel overnight 11/19. Dopplers wnl, further indicating that prolonging gestation preferable to delivery. Low suspicionfor fetomaternal hemorrhage. Will continue TID NST. FWB: FGR <1%ile, normal dopplers -intermittent deep variables to the 60s and intermittent late decels, would bring to L&D for CEFM and consideration of delivery if FHT worsened compared to basline -s/p 12hrs mag / and 11/15 -BMZ complete, s/p BMZ 11/13-11/14 -eligible for rescue steroids 11/21 -restart Mag if moving toward delivery prior to 32wks -KB negative -CMV and toxo neg ?? Polysubstance use -heroin, fentanyl, and cocaine use prior to admission -on methadone through [facility] clinic -methadone 150mg IP/MOSAIC TECHNICIAN -> increased to 160 in split dosing 11/14 -normal QTc on EKG 11/15 -SW consulted -desires inpatient rehab on discharge ?? Depression/anxiety -not on meds currently -patient declining to restart meds now ?? COVID in -COVID + 10/11/21 ?? Hep C -viral load 96k at 13wga ?? Iron deficiency anemia -Fe supplementation Dispo: originally planning for dc 11/21 with daily [place] [facility] and [place] dopplers at [facility], now uncertain based on decel DVT ppx: ambulation, unfractionate heparin BID (patient declining) Caitlin Alfred MD 11/21/21 5:10 Obstetrics & Gynecology, PGY3 Pager #[phone] Cosigned by Trinh Banks MD at 11/21/2021 8:58 EDT Associated attestation - Trinh Banks MD - 11/21/2021 0858 EDT Attestation statement: I performed or was present during the mitchell or critical portions of the visit and participated in the management of the patient. I agree with the findings and plan of care documented in the resident's/fellow's note. * Joslyn Haney, RN - 11/21/2021 0141 EDT NST Report Baseline Heart Rate: 130 Accelerations: present at end of NST Movement: present Decelerations: present Contractions: absent Interpretation: not reactive, but reassuring Co-sign Provider (Physician Name): MD Harvey 0113 - [phone] Comments: Pt semi-fowlers in bed eating ice cream and drinking ice water during NST Aston Alfred MD reviewed strip instructed to keep on monitor additional 20 mins 015Cary Alfred MD approved taking patient off monitor. Last 5-8 minutes variability improved with some accels present. JOSLYN HANEY RN Cosigned by Sandie Gabriel MD at 04/29/2022 13:32 EST * Patricia Davis RN - 11/20/2021 1810 EDT NST Report Baseline Heart Rate: 130 Accelerations: absent Movement: present Decelerations: absent Contractions: absent Interpretation: not reactive Co-sign Provider (Physician Name): Adrián Lion MD NST [id number] Comments: Pt requesting to come off NST after [address] Enriqueta Plummer notified, reviewed tracing andgave approval to stop NST at 1750. PATRICIA DAVIS RN 11/20/21 1811 Cosigned by Stefan Lion MD at 11/21/2021 10:28 EDT Associated attestation - Stefan Lion MD - 11/21/2021 1028 EDT I have reviewed the tracing and the above documentation and agree with the above. Non-reactive tracing, however moderate variability, no decels and normal baseline, overall reassuring. Continue current monitoring plan. Stefan Lion MD PhD MFM Fellow, PGY7 Pager #[phone] * Patricia Davis RN - 11/20/2021 1130 EDT NST Report Baseline Heart Rate: 140 Accelerations: 1 accel Movement: present Decelerations: absent Contractions: absent Interpretation: not reactive Co-sign Provider (Physician Name): Adrián Lion MD NST [id number] Comments: At 1010 pt rang her call light requesting to come off the monitor. Dr. Lion in department and reviewed tracing. She gave approval to stop NST at this time. PATRICIA DAVIS RN 11/20/21 1136 Cosigned by Stefan Lion MD at 11/21/2021 10:37 EDT Associated attestation - Stefan Lion MD - 11/21/2021 1037 EDT I have reviewed the tracing and the above documentation and agree with the above. Non-reactive tracing, normal baseline and moderate variability, 10x10 times one therefore not technically reactive, single quick variable, overall reassuring. Continue current monitoring plan. Stefan Lion MD PhD MFM Fellow, PGY5 Pager #[phone] * Varsha Plummer MD - 11/20/2021 0617 EDT Antepartum Progress Note CC: NRFA, severe FGR, admitted for TID NST S: Reports she is doing well but exhausted from the additional NST overnight. Reports active movement. Denies contractions, LOF or VB. O: Patient Vitals for the past 24 hrs: BP Temp Temp src Resp SpO2 11/20/21 0011 127/69 36.5 ??C (97.7 ??F) Temporal 18 98 % 11/19/212024 104/55 36 ??C (96.8 ??F) Temporal 18 97 % 11/19/21 1527 116/56 36.4 ??C (97.5 ??F) Temporal 18 99 % 11/19/21 0940 117/60 36.7 ??C (98.1 ??F) Temporal 18 100 % UOP: multiple spontaneous voids GEN: A&Ox3, NAD CV: RRR ABD: Soft, nondistended, appropriately gravid Labs: No new labs Imaging: US 11/13/21: EFW <1%ile, normal UA dopplers, CHAS 9 MCA dopplers 11/15: normal A/P: 26 y.o. woman at 26w6d admitted for monitoring in the setting of severe FGR and NRFA. FHT had been overall stable with mild variable decels, though prolonged decel overnight 11/19. Dopplers wnl, further indicating that prolonging gestation preferable to delivery. Low suspicionfor fetomaternal hemorrhage. Will continue TID NST. FWB: FGR <1%ile, normal dopplers -intermittent deep variables to the 60s and intermittent late decels, would bring to L&D for CEFM and consideration of delivery if FHT worsened compared to basline -s/p 12hrs mag 11/14 and 11/15 -s/p BMZ 11/13-11/14 -eligible for rescue steroids 11/21 -restart Mag if moving toward delivery prior to 32wks -KB negative -CMV and toxo neg ?? Polysubstance use -heroin, fentanyl, and cocaine use last week -on methadone through [facility] -methadone 150mg IP/MOSAIC TECHNICIAN -> increased to 160 in split dosing 11/14 -normal QTc on EKG 11/15 -SW consulted -desires inpatient rehab on discharge ?? Depression/anxiety -not on meds currently -patient declining to restart meds now ?? COVID in -COVID + 10/11/21 ?? Hep C -viral load 96k at 13wga ?? Iron deficiency anemia -Fe supplementation Dispo: originally planning for dc 11/21 with daily [place] [facility] [place]pplers at [facility], now uncertain based on decel DVT ppx: ambulation, unfractionate heparin BID Varsha Plummer MD 11/20/2021 6:53 PGY-4 Obstetrics and Gynecology Pager# [phone] Cosigned by Stefan Lion MD at 11/20/2021 17:56 EDT Associated attestation - Stefan Lion MD - 11/20/2021 1756 EDT OB Attending Attestation I have examined Karin Dixon myself, have reviewed her vitals, laboratory data, and chart history.I agree with the above assessment and plan as noted (otherwise I have inserted modifications in italics). No complaints this morning, tired of being here but overall feeling well and amenable to the plan of care. Talked about coping strategies, distracting activities. Reviewed her NST this morning ( see separate documentation) overall reassuring, however we discussed our threshold for delivery, certainly if she has recurrent or prolonged decel with poor recovery. BMZ complete, would start Mag for neuroprotection if concern for imminent delivery. Continue current inpatient monitoring plan, NST TID or as needed. All questions answered. Stefan Lion MD PhD MFM Fellow, PGY7 Pager #[phone] * Dipesh Velez MD - 11/19/2021 1901 EDT NST Report Baseline Heart Rate: 140 Variability: Moderate Accelerations: Present Movement: Present Decelerations: Prolonged Decel MD Wang made aware Contractions: Absent Interpretation: Reactive NST [id number] Tammy Fay RN [facility] Attending Addendum: I have reviewed the NST above- it is reactive. I agree with the assessment. Dipesh Velez MD * Berkley Jett MSW - 11/19/2021 1400 EDT This teletypewriter operator met with pt at bedside. Pt relayed that she made a few phone calls yesterday, and was waiting to hear back from a few people/organizations. - Pt called and left for her ES Outside Production Inspector (Joseluis); pt will try and call Joseluis again today. - Pt attempted to reach out to [employer] (to set up general delivery address) and was unableto get through and will try calling again today. - Pt scheduled intake with [facility] for later this month. - Pt called [facility] and reported that no one answered, so she will try calling them again today. Pt had no additional questions/concerns for this teletypewriter operator at this time. Case management will continueto follow patient until discharge. Please call CM with any questions or concerns. ?? Berkley Jett, MPH, INFORMATION TECHNOLOGY TECHNICIAN, pager [phone]?? * Grace Salazar RN - 11/19/2021 1012 EDT NST Report ?? Baseline Heart Rate: 135 Variability: Moderate Accelerations: Present x1 Movement: Present Decelerations: Absent Contractions: Absent ?? Interpretation: Reactive ?? NST [id number] on paper in patient's chart Co-sign Provider (Physician Name): ?? GRACE SALAZAR RN * Dipesh Velez MD - 11/19/2021 0611 EDT Antepartum Progress Note CC: NRFA, severe FGR, admitted for TID NST S: Very tired and hoping to catch up on sleep. Boyfriend was not able to visit yesterday, but plansto today. Denies CP/SOB/leg pain/contractions/LOF O: Patient Vitals for the past 24 hrs: BP Temp Temp src Resp SpO2 11/19/21 0112 119/65 36.3 ??C (97.3 ??F) Temporal 18 96 % 11/18/21 2247 133/76 36.5 ??C (97.7 ??F) Tympanic 20 -- 11/18/21 2126 96/77 36.5 ??C (97.7 ??F) Temporal 18 95 % 11/18/21 174 -- -- -- -- 99 % 11/18/211742 -- -- -- -- 100 % 11/18/211737 -- -- -- -- 100 % 11/18/211732 -- -- -- -- 100 % 11/18/21 1732 110/53 36.6 ??C (97.9 ??F) Temporal -- -- 11/18/21 1728 -- -- -- -- 99 % 11/18/21 1723 -- -- -- -- 100 % 11/18/21 1718 -- -- -- -- 100 % 11/18/21 1709 -- -- -- -- 99 % 11/18/21 0946 -- -- -- -- 100 % 11/18/21 0941 -- -- -- -- 100 % 11/18/21 0936 -- -- -- -- 100 % 11/18/21 0931 -- -- -- -- 100 % 11/18/21 0736 -- 36.9 ??C (98.4 ??F) Temporal 16 97 % 11/18/21 0733 92/49 -- -- -- 97 % UOP: multiple spontaneous voids GEN: A&Ox3, NAD CV: RRR ABD: Soft, nondistended, appropriately gravid Labs: No new labs Imaging: US 11/13/21: EFW <1%ile, normal UA dopplers, CHAS 9 MCA dopplers 11/15: normal A/P: 26 y.o. woman at 26w4d admitted for monitoring in the setting of severe FGR and NRFA. FHT had been overall stable with mild variable decels, though prolonged decel overnight 11/19. Dopplers wnl, further indicating that prolonging gestation preferable to delivery. Low suspicionfor fetomaternal hemorrhage. Will continue TID NST. FWB: FGR <1%ile, normal dopplers -intermittent deep variables to the 60s and intermittent late decels, would bring to L&D for CEFM and consideration of delivery if FHT worsened compared to basline -s/p 12hrs mag 11/14 and 11/15 -s/p BMZ 11/13-11/14 -eligible for rescue steroids 11/21 -restart Mag if moving toward delivery prior to 32wks -KB negative -CMV and toxo neg ?? Polysubstance use -heroin, fentanyl, and cocaine use last week -on methadone through [facility] -methadone 150mg IP/MOSAIC TECHNICIAN -> increased to 160 in split dosing 11/14 -normal QTc on EKG 11/15 -SW consulted -desires inpatient rehab on discharge ?? Depression/anxiety -not on meds currently -patient declining to restart meds now ?? COVID in -COVID + 10/11/21 ?? Hep C -viral load 96k at 13wga ?? Iron deficiency anemia -Fe supplementation Dispo: originally planning for dc 11/21 with daily [place] [facility] [place]pplers at [facility], now uncertain based on decel DVT ppx: ambulation, unfractionate heparin BID Anamika Wang MD Tableau Administrator PGY-2 Pager [phone] [facility] Inpatient Attending Attestation: I have examined Karin Dixon myself, have reviewed her vitals, laboratory data, and chart history.I agree with the above assessment and plan as noted (otherwise I have inserted modifications in red). Unclear etiology of periods of non- reassuring assessment- likely relate to placental dysfunction (severe FGR), but given normal umb artery doppler studies and normal CHAS, unlcear. Substance use through this as above, including cocaine, making a prior vascular event possible,though head imaging was normal. Plan to continue admission with TID NSTs. Discussed case withNICU dust brush assembler today, given the possibility of requiring delivery in the next 1-2 weeks for NRFA. Pt now BMZ complete, would administer MagSO4 if time up to 32 weeks for neuroprotection. Continue current care otherwise, SW involved. Repeat umb art dopplers Monday. DIPESH VELEZ MD * Caitlin Alfred MD - 11/18/2021 4274 EDT OB Update Called about concerning decel on PM NST Karin is doing well. No concerns. Denies LOF, VB. No contractions O: Patient Vitals for the past 24 hrs: BP Temp Temp src Resp SpO2 11/18/21 2247 133/76 36.5 ??C (97.7 ??F) Tympanic 20 -- 11/18/21 2126 96/77 36.5 ??C (97.7 ??F) Temporal 18 95 % 11/18/21 1748 -- -- -- -- 99 % 11/18/21 1743 -- -- -- -- 100 % 11/18/21 1738 -- -- -- -- 100 % 11/18/21 1733 -- -- -- -- 100 % 11/18/21 1732 110/53 36.6 ??C (97.9 ??F) Temporal -- -- 11/18/21 1728 -- -- -- -- 99 % 11/18/21 1723 -- -- -- -- 100 % 11/18/21 1718 -- -- -- -- 100 % 11/18/21 1709 -- -- -- -- 99 % 11/18/21 0946 -- -- -- -- 100 % 11/18/21 0941 -- -- -- -- 100 % 11/18/21 0936 -- -- -- -- 100 % 11/18/21 0931 -- -- -- -- 100 % 11/18/21 0736 -- 36.9 ??C (98.4 ??F) Temporal 16 97 % 11/18/21 0733 92/49 -- -- -- 97 % GEN: NAD PULM: Normal work of breathing ABD: soft, non-tender FHR: 125 baseline, min to mod variability, 5 min deceleration to the 80's, no accels, Cat 2 tracing Sumner: uterine irritability A/P: 26 y.o.?? woman at 26w5d admitted for monitoring in the setting of severe FGR and NRFA. She had a prolonged deceleration for approximately 5 min with minimal variability so was brought to L&D for prolonged monitoring. - Brought to L&D for extended monitoring - NPO for now Dr. Barnett aware Caitlin Alfred MD 11/18/21 23:19 Obstetrics & Gynecology, PGY3 Pager #[phone] Addendum FHT: 135 baseline, mod variability, + accels for gestational age, no decels, Cat 1 TOCO: uterine irritability 2 hours of prolonged monitoring with mod variability. Plan to transfer back to B7. Discussed with Dr. Anibal Alfred MD 11/19/21 0:41 Obstetrics & Gynecology, PGY3 Pager #[phone] * Kaela Jones RN - 11/18/2021 2305 EDT NST Report [id number] Baseline Heart Rate: Change in baseline from 140 to 150 during length of NST Accelerations: present Movement: present Decelerations: Present X3 (one prolonged deceleration lasting 7 minutes) Contractions: irritability Interpretation: Non-reactive- transfer to L&D d/t decelerations 2144: Patient drinking ice water and eating ice cream to assist with activity 2158: MD Alfred notified regarding prolonged deceleration. Primary RN at bedside holding FHR ultrasound monitor. 2204 L&D RN's at bedside to assist to find FHR- primary RN found FHR prior to arrival. Patient on her side. 2229: MD Alfred notified regarding 1 minute deceleration. Patient transferred for L&D for prolonged monitoring. Of note patient has not left her room throughout the day. She has not had any visitors as well. Co-sign Provider (Physician Name): MD Harvey JONES RN Cosigned by Sandie Gabriel MD at 04/29/2022 13:32 EST * Huong Page RN - 11/18/2021 2250 EDT 2240-Assumed care of an A+Ox4 female from [facility]. Pt admitted for cEFM due to non-reassuring FHT on B7 with prolonged decelerations and minimal variability.. 26w4d Rh +, GBS -. . Allergy to Flagyl. Pt voided. Sumner and EFM applied. VS obtained. Pt denies blurred vision, h/a, SOB, epigastric pain. Pt denies vaginal bleeding and leaking. Denies HTN, GDM, asthma. + movement. Lungs CTA, no edema bilaterally. 0010-SCDs applied for DVT prophylaxis. Pt states she does not take the heparin shots ordered for her. 0044-MD Alfred into speak with pt. FHR strip reviewed with . Per kecia WALLS for pt to return to B7. 0110-Report given back to [facility]. * Ryanne Mcintyre RN - 11/18/2021 1800 EDT NST Report Baseline Heart Rate: 135 Accelerations: present Movement: present Decelerations: Variables - 1 variable to 118 for 10 seconds Contractions: absent Interpretation: Reactive NST 7417-1711 Left on another [address] Wang in department, asked to look at NST strip. Per Dr. Wang, it's o.k. to stop monitoring. Co-sign Provider (Physician Name): RYANNE MCINTYRE RN Cosigned by Sandie Gabriel MD at 04/29/2022 13:32 EST * Berkley Jett, [facility] - 11/18/2021 1148 EDT This teletypewriter operator met briefly with pt at bedside. Pt relayed that she plans to review the list of information/resources (provided by this teletypewriter operator yesterday) later today. Pt had no additional questions/concerns for this teletypewriter operator at this time. Information provided yesterday: - Phone number for ES Outside Production Inspector (Joseluis) - Phone number for [facility] [employer] (to set up general delivery address) - Phone number for [facility] and [address] [place] [address] - Phone number for [employer] Case management will continue to follow patient until discharge. Please call with any questions or concerns. ?? Berkley Jett, MPH, INFORMATION TECHNOLOGY TECHNICIAN, pager [phone] * Ryanne Mcintyre RN - 11/18/2021 1005 EDT NST Report Baseline Heart Rate: 140 Accelerations: present Movement: present Decelerations: absent Contractions: Absent - irritability Interpretation: reactive NST 0921 -0946 Co-sign Provider (Physician Name): RYANNE MCINTYRE RN Cosigned by Sandie Gabriel MD at 04/29/2022 13:32 EST * Marina Daley - 11/18/2021 0610 EDT Antepartum Progress Note CC: NRFA, severe FGR, admitted for TID NST S: Denies complaints. Boyfriend is planning to come visit later today. Plans to walk around the hospital or outside. Ambulating without difficulty around room. Denies CP/SOB/leg pain/contractions/LOF O: Patient Vitals for the past 24 hrs: BP Temp Temp src Resp SpO2 11/17/21 2318 109/55 36.3 ??C (97.3 ??F) 16 97 % 11/17/214 101/54 36.3 ??C (97.3 ??F) 16 99 % 11/17/212002 100/45 36.2 ??C (97.2 ??F) 18 96 % 11/17/211858 -- -- -- -- 98 % 11/17/211853 -- -- -- -- 100 % 11/17/211848 -- -- -- -- 100 % 11/17/211843 -- -- -- -- 100 % 11/17/211835 -- -- -- -- 99 % 11/17/21 1831 105/52 -- -- -- 99 % 11/17/21 1830 -- -- -- -- 95 % 11/17/21 1826 -- 36.5 ??C (97.7 ??F) Temporal 16 100 % 11/17/21 0956 -- -- -- -- 100 % 11/17/21 0951 -- -- -- -- 100 % 11/17/21 0946 -- -- -- -- 100 % 11/17/21 0941 -- -- -- -- 100 % 11/17/21 0928 106/51 36.7 ??C (98.1 ??F) 16 95 % UOP: multiple spontaneous voids GEN: A&Ox3, NAD CV: RRR ABD: Soft, nondistended, appropriately gravid Labs: No new labs Imaging: US 11/13/21: EFW <1%ile, normal UA dopplers, CHAS 9 MCA dopplers 11/15: normal A/P: 26 y.o. woman at 26w3d admitted for monitoring in the setting of severe FGR and NRFA. While on continuous monitoring??FHT notable for intermittent variable and late decels, however stable overall after 48hrs without indication for urgent delivery. Dopplers wnl, further indicating that prolonging gestation preferable to delivery. Low suspicion for fetomaternal hemorrhage. Now admitted to mother baby unit for TID NST which have been reactive and reassuring. FWB: FGR <1%ile, normal dopplers -intermittent deep variables to the 60s and intermittent late decels, would bring to L&D for CEFM and consideration of delivery if FHT worsened compared to basline -s/p 12hrs mag 11/14 and 11/15 -s/p BMZ 11/13-11/14 -eligible for rescue steroids 11/21 -restart Mag if moving toward delivery prior to 32wks -KB negative -CMV and toxo neg ?? Polysubstance use -heroin, fentanyl, and cocaine use last week -on methadone through [facility] -methadone 150mg IP/MOSAIC TECHNICIAN -> increased to 160 in split dosing 11/14 -normal QTc on EKG 11/15 -SW consulted -desires inpatient rehab on discharge ?? Depression/anxiety -not on meds currently -patient declining to restart meds now ?? COVID in -COVID + 10/11/21 ?? Hep C -viral load 96k at 13wga ?? Iron deficiency anemia -Fe supplementation Dispo: planning for d/c 11/22 if NSTs and dopplers continue to be reassuring DVT ppx: ambulation, unfractionate heparin BID Marina Daley, MS4 Acting Administrative Job Titles Cosigned by Sandie Gabriel MD at 11/18/2021 14:11 EDT Associated attestation - Sandie Gabriel MD - 11/18/2021 1411 EDT [facility] Attending I saw and examined patient. I agree with the the impression and plan as noted above. Pt feeling well AVSS Abd: soft, NT FHR reviewed: some episodes with decreased baseline variability but no decels Will cont TID monitoring but if no repetitive decels and no deterioration then can consider DC Monday with daily [place] [facility] and [place] [facility] If can not do [facility] can consider 2-3x/wk at [facility] for close outpt monitoring MFMS Attending I saw and examined the patient. I agree with impression and plan as noted above. I spent 20-29 minutes of total time today on the encounter. Sandie Gabriel MD * Kaela Jones RN - 11/18/2021 0221 EDT NST Report Baseline Heart Rate: 140 Accelerations: Present (x1) Movement: present Decelerations: absent Contractions: irritability Interpretation: reactive Co-sign Provider (Physician Name): MD Gabriel [id number]: MD Alfred was notified regarding strip, approved to be removed. KAELA JONES RN Cosigned by Sandie Gabriel MD at 04/29/2022 13:32 EST * Ryanne Mcintyre RN - 11/17/2021 1918 EDT NST Report Baseline Heart Rate: 140 Accelerations: 1 present Movement: present Decelerations: absent Contractions: absent - irritability noted Interpretation: Reactive Co-sign Provider (Physician Name): RYANNE MCINTYRE RN Cosigned by Sandie Gabriel MD at 04/29/2022 13:32 EST * Berkley Jett, INFORMATION TECHNOLOGY TECHNICIAN - 11/17/2021 1504 EDT Women???s and Children???s Initial Case Management/Social Work Assessment REASON FOR ADMISSION: Karin is a 26 y.o. female admitted at 26w0d for extended monitoringin the setting of severe FGR and Cat 2 FHT. Patient/family understands reason for admission: Yes. Parent/Guardian CONTACT INFO VERIFIED: N/A. PATIENT ADDRESS VERIFIED: Pt has no mailing address at this time. Physical address is: [facility], [facility] [place] [address]. Living Arrangement: Pt has been reportedly residing at [facility] in [place], [place] through [employer] (case management rn: Joseluis). Food Insecurity Screening (Hunger Vital Sign) Social Determinants of Health Food Insecurity: Food Insecurity Present ??? Worried About Running Out of Food in the Last Year: Sometimes true ??? Ran Out of Food in the Last Year: Sometimes true Housing Stability: Not on file Financial Resource Strain: Not on file Transportation Needs: Not on file Interpersonal Safety: Not on file Depression: Not on file Depression: Not on file Social Connections: Not on file Alcohol Use: Not on file Tobacco Use: Low Risk ??? Smoking Tobacco Use: Never Smoker ??? Smokeless Tobacco Use: Never Used Stress: Not on file Physical Activity: Not on file Transportation or Financial needs (Gas, [place], Parking Lodging): Will address transportation needs closer to d/c. Information provided to pt on how to set up mailing address at local [facility] store (which will allow pt to establish other benefits). Information provided for WIC, [employer], and [employer]. Car seat at Hospital: Will address closer to d/c. CULTURAL, RASTAFARI and/or LANGUAGE factors affecting health care/discharge planning: Language/Literacy needs: None. Spiritual/Cultural Requests: n/a. Insurance Coverage: Medical Insurance: Yes. Type of insurance: [place] Medicaid. Referred to patient financial services: No. COMMUNITY RESOURCES/SUPPORTS: Primary Care Provider: Martha Saavedra PCP Verified: No. Social Supports: Boy friend. Specialists: No specialists noted at this time. DME at home and vendor: None. Pharmacy: [facility] #[id number] - [address] AT SEC OF [facility] & [address] [id number] Home Health: Will review closer to d/c. School/Daycare: n/a. Community Resources: Pt is established with [facility]. Family???s identified goals and needs: Pt noted that her cell phone is currently broken (radha benson hopefully be able to bring her a new phone this weekend). Pt indicated that she would like to connect with her ES case management rn as soon as possible to provide update on this hospitalization to ensure her room at [facility] is secured. SW provided pt with [facility] phone number. Pt is interested in setting up mailing address so that she can apply for WIC and SNAP. Information provided on setting up a general delivery address at local [facility] in [place], [place] (which pt should be able to set up over the phone). Information also provided for WIC and [employer] (pt will need to hold off on applying until she has secured mailing address). Pt also reported interest in SEB treatment, and was provided with information for [facility]. POST HOSPITAL TRANSITION PLAN: CM met with pt at bedside on B7. We discussed resources and assessedfor pts needs. D/c planning is based on pts medical course. Case management will continue to followpatient until discharge. Please call CM with any questions or concerns. Berkley Jett, MPH, INFORMATION TECHNOLOGY TECHNICIAN, pager [phone] * Ryanne Mcintyre RN - 11/17/2021 1012 EDT NST Report Baseline Heart Rate: 150 Accelerations: present Movement: present Decelerations: absent Contractions: irritability Interpretation: reactive Co-sign Provider (Physician Name): RYANNE MCINTYRE RN Cosigned by Sandie Gabriel MD at 04/29/2022 13:32 EST * Anamika Wang MD - 11/17/2021 0612 EDT Antepartum Progress Note CC: NRFA, severe FGR, admitted for TID NST S: Denies complaints. Boyfriend is planning to come visit for the day. Denies CP/SOB/leg pain/contractions/LOF O: Patient Vitals for the past 24 hrs: BP Temp Temp src Resp SpO2 Height Weight 11/16/21 2309 98/48 36.7 ??C (98.1 ??F) Temporal 16 97 % -- -- 11/16/211999 -- -- -- -- -- 168.9 cm (66.5) 56.7 kg (125 lb) 11/16/211742 -- -- -- -- 100 % -- -- 11/16/211737 -- -- -- -- 100 % -- -- 11/16/211732 -- -- -- -- 100 % -- -- 11/16/211727 -- -- -- -- 100 % -- -- 11/16/21 172 -- -- -- -- 100 % -- -- 11/16/211717 -- -- -- -- 100 % -- -- 06/07/22 1703 -- -- -- -- 100 % -- -- 11/16/21 1653 -- -- -- -- 98 % -- -- 11/16/21 1652 107/50 -- -- -- 98 % -- -- 11/16/21 1651 -- -- -- -- 99 % -- -- 11/16/21 1649 -- 36.6 ??C (97.9 ??F) Temporal -- 100 % -- -- 11/16/21 1008 -- -- -- -- 98 % -- -- 11/16/21 1003 -- -- -- -- 99 % -- -- 11/16/21 0958 -- -- -- -- 99 % -- -- 11/16/21 0953 -- -- -- -- 98 % -- -- 11/16/21 0948 -- -- -- -- 99 % -- -- 11/16/21 0943 -- -- -- -- 99 % -- -- 11/16/21 0938 -- -- -- -- 98 % -- -- 11/16/21 0933 -- -- -- -- 99 % -- -- 11/16/21 0928 -- -- -- -- 99 % -- -- 11/16/21 0923 -- -- -- -- 99 % -- -- 11/16/21 0745 100/45 36.4 ??C (97.5 ??F) Temporal 16 99 % -- -- UOP: multiple spontaneous voids GEN: A&Ox3, NAD CV: RRR PULM: CTAB throughout ABD: Soft, nondistended, appropriately gravid Labs: No new labs Imaging: US 11/13/21: EFW <1%ile, normal UA dopplers, CHAS 9 MCA dopplers 11/15: normal A/P: 26 y.o. woman at 26w3d admitted for monitoring in the setting of severe FGR and NRFA. While on continuous monitoring??FHT notable for intermittent variable and late decels, however stable overall after 48hrs without indication for urgent delivery. Dopplers wnl, further indicating that prolonging gestation preferable to delivery. Low suspicion for fetomaternal hemorrhage. Now admitted to mother baby unit for TID NST. FWB: FGR <1%ile, normal dopplers -intermittent deep variables to the 60s and intermittent late decels, would bring to L&D for CEFM and consideration of delivery if FHT worsened compared to basline -s/p 12hrs mag 11/14 and 11/15 -s/p BMZ 11/13-11/14 -eligible for rescue steroids 11/21 -restart Mag if moving toward delivery prior to 32wks -KB negative -CMV and toxo neg ?? 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 Depression/anxiety -not on meds currently -patient declining to restart meds now ?? COVID in -COVID + 10/11/21 ?? Hep C -viral load 96k at 13wga ?? Iron deficiency anemia -Fe supplementation Anamika Wang MD Tableau Administrator PGY-2 Pager [phone] Cosigned by Sandie Gabriel MD at 11/17/2021 13:31 EDT Associated attestation - Sandie Gabriel MD - 11/17/2021 1331 EDT MFMS Attending I saw and examined patient. I agree with the the impression and plan as noted above. Pt feeling better NST this AM improved somewhat. Disc possibility that her FHR changes were related to substance use and there may be some recovery, although still with early onset FGR. Disc pt request for inpt rehab: pt reconsidering based on amount of testing needed at [facility] (anticipate 2x/wk at least for some time). Asked pt about SEB with boyfriend: he also uses and is in rx, used together with most recent use. She lives in hotel, not with FOB At this point disc would keep in hosptial for frequent surveillance until Monday as difficult to create monitoring over weekend-if stable may consider repeat doppler Mon and if NSTs all look reasurring MFMS Attending I saw and examined the patient. I agree with impression and plan as noted above. I spent 20-29 minutes of total time today on the encounter. Sandie Gabriel MD * Rashmi Monge RN - 11/17/2021 0037 EDT NST Report Baseline Heart Rate: 140 Accelerations: present Movement: present Decelerations: present Contractions: absent Interpretation: Min-moderate variability, variable decelerations. Lots of movement and related difficulty keeping FHR tracing consistent at start. 1 10bpm accel seen. Similar to previous monitoring. Dr. Alfred aware. [id number] Co-sign Provider (Physician Name): MD RASHMI Lopez RN Cosigned by Sandie Gabriel MD at 04/29/2022 13:32 EST * Ryanne Mcintyre RN - 11/16/2021 1803 EDT NST Report Baseline Heart Rate: 135 Accelerations: present Movement: present Decelerations: Present variable Contractions: Rare. 1 noted about 50 sec long. Interpretation: Reactive Dr Wang called to look at NST prior to ending. O.K. to end per Co-sign Provider (Physician Name): RYANNE MCINTYRE RN Cosigned by Sandie Gabriel MD at 04/29/2022 13:32 EST * Ryanne Mcintyre RN - 11/16/2021 1025 EDT NST Report Baseline Heart Rate: 140 Accelerations: present Movement: present Decelerations: variables Contractions: 2 possible contractions noted. Appear to be about a min apart, lasting 20 seconds. Ptdescribed feeling her abdomen tightening during this time. Interpretation: reactive Chg nurse spoke with Dr Gabriel about NST prior to ending monitoring. Chg nurse relayed message to this nurse that it was o.k. to stop monitoring, per Dr Gabriel. Co-sign Provider (Physician Name): RYANNE MCINTYRE RN Cosigned by Sandie Gabriel MD at 04/29/2022 13:32 EST * Anamika Wang MD - 11/16/2021 0610 EDT Antepartum Progress Note CC: NRFA, severe FGR, admitted for TID NST S: Able to sleep overnight. Happy to be off magnesium. Denies symptoms of withdrawal. Denies CP/SOB/leg pain. O: Patient Vitals for the past 4 hrs: BP Temp Temp src Resp SpO2 11/16/21 0355 111/49 36 ??C (96.8 ??F) Temporal 18 100 % UOP: 325cc/5 hour GEN: A&Ox3, NAD CV: RRR PULM: CTAB throughout ABD: Soft, nondistended, appropriately gravid EXT: WWP NEURO: 3+ patellar DTR, 3 beats of clonus Labs: KB neg CMV neg Toxo neg Imaging: US 11/13/21: EFW <1%ile, normal UA dopplers, CHAS 9 MCA dopplers 11/15: normal A/P: 26 y.o. woman at 26w2d admitted for monitoring in the setting of severe FGR and NRFA. While on continuous monitoring??FHT notable for intermittent variable and late decels, however stable overall after 48hrs without indication for urgent delivery. Dopplers wnl, further indicating that prolonged gestation preferable to delivery. Low suspicion for fetomaternal hemorrhage. Nowadmitted to mother baby unit for TID NST. FWB: FGR <1%ile, normal dopplers -intermittent deep variables to the 60s and intermittent late decels, would bring to L&D for CEFM and consideration of delivery if FHT worsened compared to basline -s/p 12hrs mag 11/14 and 11/15 -s/p BMZ 11/13-11/14 -restart Mag if moving toward delivery prior to 32wks -KB negative -CMV and toxo neg ?? 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 Depression/anxiety -not on meds currently -patient declining to restart meds now ?? COVID in -COVID + 10/11/21 ?? Hep C -viral load 96k at 13wga ?? Iron deficiency anemia -Fe supplementation Anamika Wang MD Tableau Administrator PGY-2 Pager [phone] Cosigned by Sandie Gabriel MD at 11/16/2021 10:17 EDT Associated attestation - Sandie Gabriel MD - 11/16/2021 1017 EDT MFMS Attending I saw and examined patient. I agree with the the impression and plan as noted above. Feels much better on split dose methadone 80/80. Disc with pt to contact [facility] and let them know that split dosing will be recommended. monitoring stable Pt without other c/o Encouraged to ambulate Will start UFH BID due to possible need for Will assess monitoring progress, when looks like can erduce frequency will do so MFMS Attending I saw and examined the patient. I agree with impression and plan as noted above. I spent 20-29 minutes of total time today on the encounter. Sandie Gabriel MD * Rashmi Monge, ALLEN - 11/15/2021 2327 EDT NST Report Baseline Heart Rate: 130 Accelerations: present Movement: present Decelerations: absent Contractions: absent Interpretation: Min-moderate variability, one deceleration noted with 10x10 accels. Similar to previous monitoring. Dr. Alfred aware of NST Co-sign Provider (Physician Name): Sandie Gabriel MD RASHMI MONGE, ALLEN Cosigned by Sandie Gabriel MD at 11/16/2021 10:13 EDT Associated attestation - Sandie Gabriel MD - 11/16/2021 1013 EDT I reviewed NST and agree with above 10 bpm accels one variable, c/w stable monitoring Sandie Gabriel MD * Grace Salazar RN - 11/15/2021 1049 EDT Nursing Note Assumed care of patient at 1040. Patient denies pain, ctx, chest pain, SOB, RAMOS, epigastric pain, visual disturbances, or swelling. Patient lying comfortably in bed. Asking to eat. Assessment done. 1143 - Dr. Gabriel at bedside discussing plan of care. Mag sulfate and LR to be discontinued. Patientto have a regular diet. Patient to go to ultrasound bay for another scan. After scan, patient can be transferred to [facility] for TID NSTs and q8hr dopplers. 1145 - Mag discontinued. 1250 - Taken off monitor to walk to bathroom 1255 - Patient transported to ultrasound bay 1305 - Dr. Gabriel in ultrasound bay with patient. 1330- ultrasound complete. Per Dr. Gabriel verbal order, patient may eat lunch and then be placed on monitors afterwards. Patient transferred to 11 and is currently eating lunch. 1345 - Called to room by patient. Patient has finished her lunch and is ready for continuous EFM/TOCO to be applied. Applied monitors. +FM heard. Patient states she wishes to nap. 1530 - Removed from monitors and report given. Patient to be transferred to [place] [id number]. * Joycelyn Lovelace, ALLEN - 11/15/2021 0741 EDT Assumed pt care at 0730. Pt awake but tired, no c/o pain. FHR 120s no recent decels. Magnesium at 2gm/hr. * Anamika Wang MD - 11/15/2021 0538 EDT Antepartum Magnesium Progress Note CC: NRFA, magnesium for neuroprotection S: Sleeping. Denies CP/SOB/leg pain. O: Patient Vitals for the past 4 hrs: BP Resp SpO2 11/15/21 0801 99/55 -- 97 % 11/15/21 0700 99/60 16 96 % Intake/Output Summary (Last 24 hours) at 11/15/2021 1015 Last data filed at 11/15/2021 0700 Gross per 24 hour Intake 2388 ml Output 3050 ml Net -662 ml UOP: 325cc/5 hour GEN: A&Ox3, NAD CV: RRR PULM: CTAB throughout ABD: Soft, nondistended, appropriately gravid EXT: WWP NEURO: 3+ patellar DTR, 3 beats of clonus FHT: 125 bpm, mod ceci, pos accel, no decel Cat I FHT [place]: quiet Recent Labs 11/13/21 1142 WBC 6.22 HCT 28.4* HGB 9.4* PLT 238 BUN 5* CREATININE 0.59 ALT 18 AST 22 A/P: 26 y.o. woman at 26w1d admitted for extended monitoring in the setting of severe FGR and NRFA. Magnesium for neuroprotection. No si/sx of magnesium toxicity. Plan to monitor FHT throughout the morning. If resolution of decels then will stop CEFM and transition to TID NST. ?? FWB: FGR <1%ile, normal dopplers -persistent deep variable decels to the 60s and intermittent late morphology decels -s/p 12hrs mag 11/14 -s/p BMZ 11/13-11/14 -mag restarted at 06:30 -ideally would deliver after second dose of BMZ and after 7hrs of magnesium -q1hr nursing and q2hr MD arreola checks -fluid restrict 125cc/hr -NPO ?? 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 Depression/anxiety -not on meds currently -patient declining to restart meds now ?? COVID in -COVID + 10/11/21 ?? Hep C -viral load 96k at 13wga ?? Iron deficiency anemia - start PO iron supplementation once resumes PO intake Anamika Wang MD Tableau Administrator PGY-2 Pager [phone] Cosigned by Sandie Gabriel MD at 11/15/2021 14:27 EDT Associated attestation - Sandie Gabriel MD - 11/15/2021 1427 EDT MFMS Attending I saw and examined patient. I agree with the the impression and plan as noted above. Pt feeling well no c/o Reviewed case with Dr. Daley IUP at 26 wks with FHR 130 range, occ periods of moderate baseline variability but decels every fewhours. FGR but all dopplers normal; did MCA today (nl) and sent KB (pending) Overall strip has not deteriorated over last 48 hrs, is Mg and steroid complete Feel it is reasonable to move to TID NSTs Overall pt was dehydrated and used cocaine and heroin over last 3 days; while would have expected strip to improve as she has been able to eat, it is acceptable Disc hospitalization-she should expect at least a week, possibly longer (even to delivery) Will assess NST TID and decide if will repeat dopplers in <1 wk-at this point with nl dopplers feel weekly reasonable Will send CMV Will get EKG to check QT re: high dose of methadone Disc heroin and cocaine use; states has been struggling with recovery since started, goes to clinicin [place] Of note, she has one dose of methadone at home Sandie Gabriel MD * Ails Abraham RN - 11/15/2021 0250 EDT Roselia Alfred on unit, tracing reviewed. Will reviewed with MD attending. * Dayanna Tolbert RN - 11/14/2021 1940 EDT 191: assumed care of patient, report from Chioma Pina RN. 26w0d, [place] [facility] [place]FA, FHR <1%tile, currently on magnesium infusion for neuroprotection, BMX complete. Using bedpan at time of report. Cat 2 FHT, pt currently denies RAMOS, vision changes RUQ pain, and ctxs. SCDs in place. 2013: Mg and LR off per MD care team, pt allowed to eat and drink for now. 2019: toast, banana and water provided per pt request 2110 OOB to commode, tolerated well. 2215: pt resting comfortably,FHT remains unchanged 0014: IV benadryl administered per pt request and MAR for sleep 0400: pt resting comfortably, encouraged to reposition self frequently for skin integrity. 0519 prolonged deceleration w/ delayed return to baseline, reviewed strip with Dr. alfred 0530 plan to restart magnesium, Dr Alfred in to discuss with patient, pt verbalizing increased anxiety regarding FHR and potential need for delivery, 1:1 support provided. 0542 OOB to commode to void 0604 mg bolus initiated per AUG 614 education regarding IS provided 0626 magnesium infusion initiated per AUG 699 pt resting comfortably 0730 bedside report to Chioma Lovelace RN. * Jihan Brown - 11/14/2021 1846 EDT Antepartum Magnesium Progress Note CC: NRFA, magnesium for neuroprotection S: Karin reports she has been feeling sleepy through the day, she was curled up in bed watching Moore. Is eager to eat food/drink water. Denies headaches, vision changes, chest pain, sob, leg pain. O: Patient Vitals for the past 4 hrs: BP Temp Temp src Resp SpO2 11/14/21 1859 118/69 -- -- 20 99 % 11/14/21 1828 -- -- -- 20 98 % 11/14/21 1800 -- -- -- 20 -- 11/14/21 1745 120/76 -- -- 20 99 % 11/14/21 1729 -- -- -- 18 97 % 11/14/21 1715 -- -- -- 16 97 % 11/14/21 1645 113/71 36.7 ??C (98.1 ??F) Tympanic 20 99 % 11/14/21 1630 -- -- -- 20 -- 11/14/21 1615 -- -- -- 20 97 % UOP: 500 cc / 2 hr NET: + 2.098 cc GEN: A&Ox3, NAD CV: RRR PULM: CTAB throughout ABD: Soft, nondistended, appropriately gravid EXT: +venos, no calf tenderness NEURO: 2+ patellar DTR, 1 beat clonus right FHT: 130 bpm, min variability, pos accel, intermittent deep variable decels and late decels, Cat 2 FHT [place]: rare contractions SVE: deferred Recent Labs 11/13/21 1142 WBC 6.22 HCT 28.4* HGB 9.4* PLT 238 BUN 5* CREATININE 0.59 ALT 18 AST 22 A/P: 26 y.o. woman at 26w0d admitted for extended monitoring in the setting of severe FGR and Cat 2 FHT. Magnesium stopped after 12 hrs, no s/s of toxicity. 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 Denies RAMOS, visual changes, N/V, RUQ or epigastric pain. Denies CP/SOB/leg pain. Denies contractions. O: Patient Vitals for the past 4 hrs: BP Resp SpO2 11/14/21 1615 -- 20 97 % 11/14/21 1600 -- 20 98 % 11/14/21 1530 -- 20 100 % 11/14/21 1401 109/60 -- 96 % 11/14/21 1301 117/61 -- 97 % UOP: 750cc/3hour GEN: A&Ox3, NAD CV: RRR PULM: CTAB throughout ABD: Soft, nondistended, appropriately gravid EXT: +venos, no calf tenderness NEURO: 2+ patellar DTR FHT: 135 bpm, min variability, pos accel, intermittent deep variable decels and late decels, Cat 2 FHT [place]: rare contractions SVE: deferred Recent Labs 11/13/21 1142 WBC 6.22 HCT 28.4* HGB 9.4* PLT 238 BUN 5* CREATININE 0.59 ALT 18 AST 22 A/P: 26 y.o. woman at 26w0d admitted for extended monitoring in the setting of severe FGR and Cat 2 FHT. Magnesium for neuroprotection. 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 1545 Palpate UC Q 4-5 minutes Mild Pt unaware of UC GBS collected/sent Unable to monitor via toco at this time. Dr Lion aware of FHR pattern and status POC to continue with neuroprotection magnesium gtt per protocol. 1605 Pt sleeping 1610 Palpate UC mild FM audible on EFM * Anamika Wang MD - 11/14/2021 1336 EDT Antepartum Magnesium Progress Note CC: NRFA, magnesium for neuroprotection S: Feeling less anxious and plans to sleep. Denies RAMOS, visual changes, N/V, RUQ or epigastric pain.Denies CP/SOB/leg pain. Denies contractions. O: Patient Vitals for the past 4 hrs: BP Temp Temp src SpO2 11/14/21 1301 117/61 -- -- 97 % 11/14/21 1201 104/64 -- -- -- 11/14/21 1001 111/66 37.4 ??C (99.3 ??F) Tympanic 100 % UOP: 650cc/3hour GEN: A&Ox3, NAD CV: RRR PULM: CTAB throughout ABD: Soft, nondistended, appropriately gravid EXT: +venos, no calf tenderness NEURO: 2+ patellar DTR FHT: 135 bpm, min variability, pos accel, intermittent variable decels, Cat 2 FHT [place]: rare contractions SVE: deferred Recent Labs 11/13/21 1142 WBC 6.22 HCT 28.4* HGB 9.4* PLT 238 BUN 5* CREATININE 0.59 ALT 18 AST 22 A/P: 26 y.o. woman at 26w0d admitted for extended monitoring in the setting of severe FGR and Cat 2 FHT. Magnesium for neuroprotection. No si/sx of magnesium toxicity FWB: FGR <1%ile, normal dopplers -difficulty with monitoring due to coincidence between maternal and heart rates. Overnight and through the morning the FHT was persistently Cat 2 with variable decels to the 60s and slow returnto baseline, consistent with transient hypoxemia. 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 Ayad Wang MD Tableau Administrator PGY-2 Pager [phone] Cosigned by Stefan Lion MD at 11/14/2021 14:58 EDT Associated attestation - Stefan Lion MD - 11/14/2021 3562 EDT OB Attending Attestation I have examined Karin Dixon myself, have reviewed her vitals, laboratory data, and chart history.I agree with the above assessment and plan as noted (otherwise I have inserted modifications in italics). 26 y.o. 26w0d admitted for continuous monitoring in the setting of cat 2 FHT and new dx FGR. Patient trying to sleep earlier, allowed to rest and in to visit her midday around 13:30. Lying in bed, alert, awake and conversational. Hungry and tired but otherwise denies complaints at this time.Not feeling as agitated, denies sweats or chills, body aches, abdominal pain. Would like to try to sleep some more. No labor complaints at this time. Confirms interest in inpatient rehab placement, just seen by social work prior to my visit and provided with registration contact info for local program. Currently lives in hotel, was previously living with her BF and his sister but moved out as shedoes not get along with his sister. Reports feeling safe at home and at their house, is supportive and also in MAT program. On my evaluation, FHT baseline 125s, moderate variability. Intermittent variables, with varying characteristics. Deep variable late following a contraction with shouldering at 14:12, 13:29. Prior to this, more subtle shallow late morphology variable at 12:19. However several hours preceding, periodic short and small variables with spontaneous resolution. Category 2 FHT, at the time of my evaluation overall reassurring in the setting of moderate variability appropriate for GA, rare 10x10. Statusremains guarded particularly in the setting of new severe FGR diagnosis. D/w patient short-term goal of second BMZ and a FHT consistently reassuring enough to allow us to move towards NSTs rather than continuous monitoring. However, remains at high risk of distress, abruption with FGR and cocaine use. At this time my threshold for delivery remains high due to extreme prematurity and not steroid complete, but would be prompted by recurrent and/or prolonged decelerations without evidence of recovery. Will continue Mag for neuroprotection at this time, initiated this morning upon patient acceptance and ongoing Cat 2 FHT. Given FHT has remained stable and less frequent prolonged decels, reassuring moderate variability, compared to this morning and overnight, will allow for clear liquids. Will reassess po status and Mag this evening pending maternal and stability. All questions answered, no additional concerns at this time. Stefan Lion MD PhD MFM Fellow, PGY7 Pager #[phone] * Julio Cesar Keller LICSW - 11/14/2021 1322 EDT SUZANNE met with Karin today who stated she was very tired. SW explored inpatient rehab options. SinceKarin is her only option is [facility]. SUZANNE provided the phone number for [facility] and explained the first step is calling to complete a phone screening. Daewhitneygama said she would call. SHANNA ZAMARRIPA * Anamika Wang MD - 11/14/2021 1229 EDT Antepartum Magnesium Progress Note CC: NRFA, magnesium for neuroprotection S: Very hungry, hoping to be able to eat a regular diet. Talked with NICU and understands that if she were to deliver at this gestational age, then the would stay in the ICU. Requesting to talk to social work about inpatient rehab so that she can stay closer to the infant. Denies RAMOS, visual changes, N/V, RUQ or epigastric pain. Denies CP/SOB/leg pain. O: Patient Vitals for the past 4 hrs: BP Temp Temp src SpO2 11/14/21 1001 111/66 37.4 ??C (99.3 ??F) Tympanic 100 % UOP: 650cc/3hour GEN: A&Ox3, NAD CV: RRR PULM: CTAB throughout ABD: Soft, nondistended, appropriately gravid EXT: +venos, no calf tenderness NEURO: 2+ patellar DTR FHT: 135 bpm, mod ceci, pos accel, intermittent variable and late decels, Cat 2 FHT Sumner: rare contractions SVE: deferred Recent Labs 11/13/21 1142 WBC 6.22 HCT 28.4* HGB 9.4* PLT 238 BUN 5* CREATININE 0.59 ALT 18 AST 22 A/P: 26 y.o. woman at 26w0d admitted for extended monitoring in the setting of severe FGR and Cat 2 FHT. Magnesium for neuroprotection. No si/sx of magnesium toxicity FWB: FGR <1%ile, normal dopplers -difficulty with monitoring due to coincidence between maternal and heart rates. Overnight and through the morning the FHT was persistently Cat 2 with variable decels to the 60s and slow returnto baseline, consistent with transient hypoxemia. 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 Ayad Wang MD Tableau Administrator PGY-2 Pager [phone] * Anamika Wang MD - 11/14/2021 6350 EDT Antepartum Magnesium Progress Note CC: NRFA, magnesium for neuroprotection S: Noticing some contractions. Starting to feel more and more anxious and shaky. Denies RAMOS, visual changes, N/V, RUQ or epigastric pain. Denies CP/SOB/leg pain. O: Patient Vitals for the past 4 hrs: SpO2 11/14/21 0411 97 % 11/14/21 0406 97 % 11/14/21 0401 97 % UOP: 250cc/4hour GEN: A&Ox3, NAD CV: RRR PULM: CTAB throughout ABD: Soft, nondistended, appropriately gravid EXT: +venos, no calf tenderness NEURO: 2+ patellar DTR FHT: 135 bpm, mod ceci, pos accel, intermittent variable and late decels, Cat 2 FHT Sumner: 3/10 min SVE: deferred Recent Labs 11/13/21 1142 WBC 6.22 HCT 28.4* HGB 9.4* PLT 238 BUN 5* CREATININE 0.59 ALT 18 AST 22 A/P: 26 y.o. woman at 26w0d admitted for extended monitoring in the setting of severe FGR and Cat 2 FHT. Magnesium for neuroprotection. Confirmed FHR baseline 135 with BSUS. FWB: FGR <1%ile, normal dopplers -difficulty with monitoring due to coincidence between maternal and heart rates. Overnight and through the morning the FHT is persistently Cat 2 with variable decels to the 60s and slow return to normal consistent with transient hypoxemia. 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 Ayad Wang MD Tableau Administrator PGY-2 Pager [phone] * Faith Stewart, RN - 11/14/2021 0734 EDT 0725- Dr Wang to bedside. 0730- Dr Wang returned to bedside and directed to not start magnesium at this time and to let pt order regular diet. 0731- Benadryl 25mg IVP given per Dr Wang. 0755- Mag started with 4 g bolus. 0800- Variables observed to 75 bpm, mod variability throughout, for duration of 5 minutes. 0801- Dr Wang to bedside 0805- FHR verified via bedside US by Dr Wang at 136bpm 0806- +FM noted per pt and resident 0823- Mag at 2g/hour. 0841- Pt voided 500 cc lear yellow urine into bedpan 0845- Reclined in bed. Pt maintains that she is feling ontractions but they are tight, not painful. 0945-Pt resting quietly in NAD. Continuing to sit at pt bedside to ensure recording accurate CEFM. 1055- Pt requests to defer VS / mag check / venodyne placements. Dr Wang notified and concurs. 1200- Pediatric provider to bedside to complete consult 1305- farmworker rice going in to consult c pt 1328- Contx palpates moderately firm, pt denies contraction pain. Dr Lion at bedside to meet andassess pt. 1331- Pt advised that she would not be able to graduate to regular diet for a while longer 2* variable noted at 1330 1415- Variable deceleration noted down to 80bpm with rapid return to baseline. CEFM not recording FHR continuously after variable. 1419- Dyana Wang to bedside to determine FHR via US 1421- FHR [address] Wang 1434- Up on bedpan 1448- 750cc void 1459- Adjusting EFM 1500- Report off to Chioma Pina RN * Caitlin Alfred MD - 11/14/2021 0506 EDT Antepartum Progress Note Chief Complaint: IUP @ 26w0d admitted @ 25+6 for extended monitoring Hospital Day: 2 Interval Events: - [place] [facility] [place] Admitted overnight on L&D - Magnesium recommended, patient declined - NPO with Cat 2 tracing Subjective: Able to sleep a little overnight with benadryl. Very anxious. Denies LOF, VB, feeling contractions. Objective: BP 121/78 Temp 36.8 ??C (98.2 ??F) (Tympanic) Resp 20 LMP 05/12/2021 (Approximate) SpO2 97% Gen: NAD Resp: CTAB CV: RRR Abdomen: soft, non-tender Extremities: WWP FHT: 135 baseline, min to mod variability, present accelerations for gestational age (10x10), intermittent late and variable decelerations. Cat 2 tracing Sumner: intermittent contractions SVE: deferred Assessment/Plan: 26 y.o. @ 26w0d with new diagnoses of FGR <1% and Category 2 tracing, diagnosed at 25w6d. Currently hemodynamically stable, moderate concern for placental abruption in thesetting of recent cocaine use, contractions, and Category 2 tracing. However >50% of the FHT maintaining moderate variability. CEFM. Nonreassuring assessment - IV x2 - CEFM - Magnesium was recommended overnight in the setting of variable and late decelerations. Patient declined overnight. Will continue to recommend -would move toward delivery if signs of distress - Will need plan for monitoring - Currently NPO, will need to liberalize diet if not moving toward delivery imminently MOD - section due to breech, consent signed on 11/13, in chart - Anesthesia consulted FWB - CEFM due to Cat 2 tracing - Growth US completed 11/13 at 25+6: FGR<1%, EFW 607g, normal dopplers, anterior placenta, breech presentation, CHAS wnl - BMZ#1 @ 1630, due for second dose today at 16:30 - NICU consulted OUD - Currently on 150mg methadone, recently uptitrated from 140mg - Endorses cocaine use on the night of 11/12, cocaine positive on UDS [place] [facility] - Need to contact methadone prescriber at time of discharge to discuss dosage - Patient desires inpatient rehab, consider AM SW consult Hep C positive - VL @ 13wk: 97k - Consider repeat VL in 2nd trimester Global - Rh pos - GBS need to be done - RI/ - BMI 19.7 VTE ppx - Ambulation, hydration Dispo - guarded CAITLIN ALFRED MD 11/14/21 5:07 PGY3, OBGYN #[id number] * Caitlin Alfred MD - 11/13/20212050 EDT OB Update Introduced self to patient at change of shift. FHT Cat 2 with late decels and variables around 19:55. Recommended starting magnesium for neuroprotection in the likelihood of imminent delivery. Discussed risk and benefits. Patient reports feeling very anxious about everything and wants time to think about magnesium. Had difficulty finding FHR at 20:30, BSUS brought in to find heart rate- around 130's. Again recommended magnesium, patientdeclines right now and wants to think about it further. Dr. Daley in room to discuss. Patient disclosed to Dr. Daley of cocaine use last night, still wants to think about magnesium. Charge nurse aware. OR opened and covered. Will continue to attempt continuous monitoring, though difficult given FHR close to maternal HR in the 130's and requiring nursing staff to hold monitor on the patient. NPO. Dr. Daley aware Caitlin Alfred MD 11/13/21 20:54 Obstetrics & Gynecology, PGY3 Pager #[phone] * Inge Vallejo, RN - 11/13/20211951 EDT 1914 assumed care of patient. Patient resting in bed with eyes closed. Cooperative. Expresses desire to eat and come off monitoring 1949 patient very cooperative requests to eat dinner. MD notified per Alis stone RN 2009 MD at bedside. POC discussed with patient.patient refusing magnesium at this time 2025 dr alfred at bs with ultrasound 2029 dr Daley at bedside poc discussed. Pt refusing magnesium 2104 dr alfred at bedside discussing 2199: IV team at bedside or IV placement. intermittent maternal and heart rate tracing 223: patient up to the bathroom 2259 IV benadryl given per MD order 0030 Patient resting with eyes closed 0222 pt up to the bathroom 0300: patient requesting for this nurse to stay at bedside. Patient verbalizing want to stay clean and be admitted to an inpatient facility for substance abuse help. 0430: Patient resting with eyes closed. Order per Dr Alfred to not take vital signs while patient sleeping * Ana Pina, ALLEN - 11/13/2021 1435 EDT 1435 Pt arrived via ambulance with IVF D5LR infusing changed to LR now 100 ml/hr Pt in NAD I am starving, can I eat? EFM applied Uterus non tender upon palpation and denies VB or LOF 1535 To Ultrasound bay for sonogram by Tabitha Tobar and Nimo 1700 Pediatric MD NICU in to see pt Pt anxious and unable to hear education/MD Anesthesia MD in to see pt/consent signed EFM readjusted multiple times to capture FH Sumner off at present secondary to difficulty with FHR recording FM audible 1730 Pt stating she wants to go home tonight Calling BF mother to pick her up Pt taking EFM off. Up ambulating in room. Dr Suero/Kathleen aware and in to see pt to discuss POC. Pt requesting methadone dose now to cover dose from am she vomited. Pt states she is hungry Explained POC and rationale for NPO and EFM multiple times Pt states she will return to EFM after Methadone dose. Pt fidgeting. Dr Suero/Kathleen aware. 184 Pt irritable at present Up and down in bed Requesting methadone. [address] back on EFM documented in this encounter H&P Notes * Anamika Wang MD - 11/13/2021 1437 EDT Department of Obstetrics History & Physical Admit Date: 11/13/2021 Chief Complaint Patient presents with ??? Non-stress Test evaluation Admission indication: Other (comment) (Cat 2 tracing) Maternal transport/Outside delivery: Yes Sending [place] name[place] [facility] Sending provider name: Boris Indications for transport: other (comment) (Cat 2 FHT) HPI: Karin Dixon is a 26 y.o. at 25w6d by 12wk US who is transported from [facility] for extended monitoring for Cat 2 FHT. She arrived to the OSH ED complaining of a migraine causing emesis. Shehad been unable to tolerate PO and could not keep her normal methadone dose down. During her triagethe FHT was Cat 2 for late decels and intermittent minimal variability. UDS positive for methadone and cocaine. Electrolytes were normal. No leukocytosis. She received 2.5L D5NS. Serum glucose 183. On arrival to L&D she confirms the above events. Now she states that she is very anxious. Denies ongoing nausea. Denies symptoms of withdrawal. Denies ctx, LOF, or VB c/b: -OUD on methadone: dose increased from 140-150mg today -substance use: heroin use last week, cocaine + UDS at [facility] -Hep C: viral load 97k at 13wga -depression/anxiety -COVID + 10/11/21 Review of Systems: see above Current Complications: No data recorded Testing: Genetic screening: NIPT Genetic procedures: None Dx requiring follow-up: None procedures: None procedures: None Selective reduction: None Medication Exposure: Significant medication exposure: None Labs: Rh pos/ Antibody screen neg / Rubella Imm / Varicella Imm / RPR NR / Gonorrhea neg / Chlamydia neg / Hepatitis B neg/ Hepatitis C pos / HIV neg GBS unk Ultrasound 20wk: ant plac, 3vc, normal anatomy FOB History: No data recorded OB History Para Term AB Living 2 0 0 1 SAB TAB Ectopic Multiple Live Births 1 # Outcome Date GA Lbr Joseph/2nd Weight Sex Delivery Anes PTL Lv 2 Current 1 06/06/16 3260 g (7 lb 3 oz) Vag-Spont GALILEO Comments: Adopted out, open adoption Previous Complications: No data recorded Past Medical History Past Surgical History Past Medical History: Diagnosis Date ??? Depression ??? Hepatitis ??? Trauma Past Surgical History: Procedure Laterality Date ??? WISDOM TOOTH EXTRACTION Past Gynecological History Social History 12/2019 NILM Social History Tobacco Use ??? Smoking status: Never Smoker ??? Smokeless tobacco: Never Used Substance Use Topics ??? Alcohol use: Not Currently Comment: sporadic in past reports current drug use. Drugs: Methadone and Heroin. Medications Allergies Medications Prior to Admission Medication Sig Dispense Refill Last Dose ??? doxylamine 25 mg tablet tablet Take 0.5 Tablets by mouth at bedtime. (Patient not taking: Reported on 10/21/2021) 30 Tablet 1 ??? methadone (DOLOPHINE) 10 mg tablet Take 150 mg by mouth daily. ??? vit,horacio 74/iron/folic ( VITAMIN 1+1 ORAL) Take by mouth. Allergies Allergen Reactions ??? Flagyl [Metronidazole] Objective: Patient Vitals for the past 8 hrs: BP Heart Rate Resp Temp SpO2 11/13/21 1501 -- -- 18 36.7 ??C (98.1 ??F) 100 % 11/13/21 1439 116/66 87 BPM 16 -- 100 % General: NAD Cardiovascular: tachycardic to 110s, normal rhythm Respiratory: CTAB Abdomen: soft, gravid, NTTP Extremities: WWP FHT: 130 baseline. mod variability, + accels, intermittent late decels; Cat 2 tracing. TOCO: uterine irritability SSE: deferred SVE: deferred Assessment/Problems/Plan: Daesukh Dixon is a 26 y.o. at 25w6d by 12wk US presenting for extended monitoring. Nonreassuring assessment -admit, place IV, T&S, COVID swab -consider BMZ if tracing continues to be Cat 2 -NICU consulted -anesthesia consulted -administer magnesium if decision made to move toward delivery -growth after NST -plan for extended monitoring after BPP -would move toward delivery if signs of distress OUD -methadone 150mg through [facility] -continue IP/MOSAIC TECHNICIAN dosing -monitor closely for symptoms of withdrawal Polysubstance use -last used heroin one week ago and cocaine + on UDS -monitor for symptoms of withdrawal Anxiety/Depression -not currently on meds -CTM mood and start antidepressant prn Elevated serum glucose: likely 2/2 to D5NS infusion -POC glucose on admission Global Rh pos GBS unk Immunizations indicated : None Discussed with MD Anamika Louis MD Tableau Administrator PGY-2 Pager [phone] Cosigned by Rafy Daley MD at 11/14/2021 12:07 EDT Associated attestation - Rafy Daley MD - 11/14/2021 1207 EDT I saw and examined the patient, reviewed her vitals and labs, personally performed her detailed anatomy scan and repeatedly reviewed her cEFM on 11/13/21 and overnight into 11/14/21. I agree with thefindings and plan of care as documented in Dr Wang's note. 26 y.o. at 26w0d gestation withactive multisubstance abuse (on methadone with use of heroin/fentanyl in past week and crack cocaine last night) admitted as transport [place] [facility] Initially presented there with migraine, dehydration and intolerance of PO and was noted to have non-reactive NST and very prolonged late morphology decel, reviewed over text (deidentified image). Subsequent NST non-reactive and notable only for intermit tent/short decels therefore agreed to transport based on risk/benefit ratio given that extended monitoring clearly indicated as well as US evaluation of wellbeing (not available locally).Tracing over time deemed to be sufficiently stable for drive to [facility] (re-evaluated myself with Dr Escalante immediately prior to departure). Here diagnosed with severe early-onset FGR based on EFW 607g (<1%ile) albeit with normal AFV and Dopplers (both UA and DV). BMZ administered given FGR + non-reassuring assessment. Variability acceptable for gestational age (and potentially compounded by methadone) but over course of the day extended monitoring notable for more intermittent decels (both variable and late morphology) including several prolonged decels preventing early de- escalation. Recommended magnesium for neuroprotection on more than one occasion overnight when cEFM noted to be deteriorating but repeatedly declined by patient after extensive counseling. Perhaps inconsistently, does agree to emergent CS in case of preterminal type deterioration in condition (consent signed) bu t discussed threshold for delivery high at this gestational age (and before completion of BMZ) especially given normal Dopplers suggesting absence of acidemia at this time. Nevertheless, explained that prolonged deceleration without recovery (acute life-threatening insult suggestive of major placental abruption or cord accident) would prompt us to recommend immediate delivery, especially given anticipation of decreased reserve with severe FGR. Also discussed full differential diagnosis ofsevere-early onset FGR including uteroplacental insufficiency (most likely given risk factors) vs. constitutional smallness vs. intrinsic disease such as genetic syndrome, chromosomal aberration or intrauterine infection (less likely given normal routine anatomy scan and low risk cfDNA screening previously and normal detailed anatomy scan today with no stigmata of syndrome/aneuploidy/infection). If able to de-escalate to NSTs and potentially discharge once stability proven, plan would be to see weekly for repeat UA Dopplers and track growth q3 weeks (high intensity monitoring). For now will continue extended monitoring and continue to encourage magnesium depending on trajectory. Discussed with Dr Agustin Daley MD Obstetrics/Gynecology documented in this encounter Consult Notes * Edy Velez MD - 11/13/2021 3122 EDT Karin is currently at 25w6d with a baby boy named Olya. She had a severe headache and emesis today which prompted presentation to the hospital for IV hydration. Olya was found to have late and variable decelerations and is undergoing monitoring. Ultrasound today showed EFW of ~600g. Currently Karin is feeling anxious and has no supports. Her boyfriend's mom is planning to come tomorrow as Karin's mom is in intermediate. Karin requested that we do the NICU consult tomorrow when sheis feeling less anxious. She is hopeful that Olya is not born early as she reports this happened (emesis/headache) during her last ~5 years ago and then she carried her daughter to term. I will plan to return tomorrow to discuss NICU care of infants born prematurely. Edy Velez MD Returned on 11/14 and Karin reported she was doing much better. However Olya has had further decelerations on monitoring and Karin is receiving magnesium for neuroprotection. I discussed the potential NICU course of an born at 26 weeks including need for respiratory support (CPAP, intubation, surfactant), nutrition support (TPN, donor milk, PO feeding, NEC risk), IV access (UVC/PICC), and screening for IVH and ROP. Karin was feeling tired due to her recent medications and began to close her eyes, so I encouraged her to rest. She did not have any immediate questions and is hopeful that Olya is not delivered today. If any further questions please consult NICU. Social: Karin's boyfriend is on probation so did not come today, but will hopefully come tomorrowafter discussing with truant officer. Karin voiced desire to be in inpatient rehab as currently she is in a hotel. Edy Velez MD documented in this encounter Miscellaneous Notes * Plan of Care - Evon Suarez RN - 12/09/2021 0052 EDT Problem: Daily Care Plan Goals Goal: Care Plan Documentation Flowsheets (Taken 12/08/2021 2330) Area of Focus: Utero Placental Perfusion Goal This Shift: maintain Data: Antepartum @ 29 4. IP for NRFA . Action: monitor maternal/ wellbeing. Educated patient on s/sx to report. Response: Patient verbalizes/demonstrates understanding s/sx to report. +FM, pt denies bleeding, leaking or celine. maintained. * Plan of Care - Lazaro Torres RN - 12/08/2021 2044 EDT Problem: Nutritional: Goal: Ability to attain and maintain optimal nutritional status will improve Outcome: Met This Shift Problem: Activity: Goal: Ability to follow a routine sleep schedule will be adequately managed Outcome: Met This Shift Problem: Lifecycle: Antepartum: Goal: Ability to maintain clinical measurements within normal limits will improve Outcome: Met This Shift Problem: Daily Care Plan Goals Goal: Care Plan Documentation Outcome: Ongoing Flowsheets (Taken 12/08/2021 1557) Area of Focus: Discharge Plan Goal This Shift: paln for D/C home tomorrow Note: Data: Antepartum @ 29 3. IP for NRFA, severe FGR, and polysubstance use disorder. . Action: monitor maternal/ wellbeing. Educated patient on s/sx to report. Planning for D/C to boyfriend's sisters house tomorrow. (see CM/SW note) Obtained urine drug screen and MD's are setting up follow up and methadone dosing. Response: Patient verbalizes/demonstrates understanding s/sx to report. NST reactive, +FM, pt denies bleeding, leaking or celine. maintained. Anticipate discharge tomorrow and patient aware of plan * Plan of Care - Souleymane-Ana Morales, ALLEN - 12/08/2021 1142 EDT Problem: Daily Care Plan Goals Goal: Care Plan Documentation Outcome: Met This Shift Problem: Lifecycle: Antepartum: Goal: Risk for labor will decrease Outcome: Ongoing Data: Pt here at 29+3 with NRFA. NST BID. AM NST reactive. T+S due today. Covid due 12/09. Action: VS and assessment per orders, NST completed, monitor s/s PTL, cluster care Response: Pt stable, continue to monitor and assist as needed. * Plan of Care - Natacha Little RN - 12/07/2021 2237 EDT Problem: Daily Care Plan Goals Goal: Care Plan Documentation Outcome: Ongoing Flowsheets (Taken 12/07/2021 1926) Area of Focus: Utero Placental Perfusion Goal This Shift: Maintain Problem: Lifecycle: Antepartum: Goal: Ability to maintain clinical measurements within normal limits will improve Outcome: Ongoing Data: Antepartum @ 29 +2. IP for NRFA, severe FGR, and polysubstance use disorder. Action: monitor maternal/ wellbeing. Educated patient on s/sx to report. Response: Patient verbalizes/demonstrates understanding s/sx to report. NST reactive, +FM, pt denies bleeding, leaking or celine. maintained. * Plan of Care - Lazaro Torres RN - 12/07/2021 1842 EDT Problem: Daily Care Plan Goals Goal: Care Plan Documentation Outcome: Met This Shift Flowsheets (Taken 12/07/2021 1547) Area of Focus: Utero Placental Perfusion Goal This Shift: maintain Note: Data: Antepartum @ 29 2. IP for NRFA . Action: monitor maternal/ wellbeing. Educated patient on s/sx to report. Response: Patient verbalizes/demonstrates understanding s/sx to report. NST reactive on day shift, +FM, pt denies bleeding, leaking or celine. maintained. * Plan of Care - Natacha Little RN - 12/07/2021 0110 EDT Problem: Daily Care Plan Goals Goal: Care Plan Documentation Outcome: Ongoing Flowsheets (Taken 12/06/20211956) Goal This Shift: Maintain Problem: Lifecycle: Antepartum: Goal: Ability to maintain clinical measurements within normal limits will improve Outcome: Ongoing Data: Antepartum @ 29 +2. IP for NRFA, severe FGR, and polysubstance use disorder. Action: Monitor maternal/ wellbeing. Educated patient on s/sx to report. Response: Patient verbalizes/demonstrates understanding s/sx to report. NST non reactive and MD notified. +FM, pt denies bleeding, leaking or celine. maintained. Will continue to monitor. * Plan of Care - Ana Kauffman, ALLEN - 12/06/2021 1738 EDT Problem: Daily Care Plan Goals Goal: Care Plan Documentation Outcome: Met This Shift Problem: Lifecycle: Antepartum: Goal: Ability to maintain clinical measurements within normal limits will improve Outcome: Met This Shift Data: Pt here at 29+1 weeks with NRFA. Now on BID NST's. Growth scan done today. NST in AM reactive. T+S drawn 12/05. Covid swab today. On methadone maintenance. Action: VS and assessment per orders, NST completed. Meds per emar. Response: Pt stable, continue to monitor and assist as needed. * Plan of Care - Kelly Foy RN - 12/06/2021 0408 EDT Problem: Daily Care Plan Goals Goal: Care Plan Documentation Outcome: Met This Shift Flowsheets (Taken 12/05/20212108) Area of Focus: Utero Placental Perfusion Goal This Shift: Pt will maintain Note: Note: Data: Pt is here with IUP at 29+1 for NRFA. A+. GBS-. . Active COVID swab and Type and Screen. Hx of FGR, methadone therapy, cocaine/heroin/fentanyl use, Hep C +, anxiety and depression. Ptdenies bleeding, leaking and celine. Pt endorses + movement. Pt declines pain. Action: Assessed per protocol. VS per order. Discussed s/s to report to nursing. NST completed. Clustered care to promote rest. Response: Stable AP pt. VSS. NST reactive. FHT wnl. Sleeping between care. Continue to monitor. KELLY FOY RN 12/06/2021 4:07 Problem: Pain: Goal: Pain level will decrease Outcome: Met This Shift Problem: Lifecycle: Antepartum: Goal: Ability to maintain clinical measurements within normal limits will improve Outcome: Met This Shift * Plan of Care - Ana Kauffman RN - 12/05/2021 1642 EDT Problem: Daily Care Plan Goals Goal: Care Plan Documentation Outcome: Met This Shift Problem: Lifecycle: Antepartum: Goal: Risk for labor will decrease Outcome: Met This Shift Data: Pt here at 29+0 weeks with NRFA. T+S due today. Covid swab due on 12/06. Pt endorses no bleeding, leaking or celine, NST reactive this AM. Action: VS and assessment per orders, NST completed, Cluster care Response: Pt stable, continue to monitor and assist as needed. * Plan of Care - Joslyn Haney RN - 12/05/2021 0352 EDT Problem: Daily Care Plan Goals Goal: Care Plan Documentation Outcome: Met This Shift Flowsheets (Taken 12/04/2021 1930) Area of Focus: Utero Placental Perfusion Goal This Shift: Maintain Problem: Activity: Goal: Ability to follow a routine sleep schedule will be adequately managed Outcome: Ongoing Data: Antepartum @ 29w0d. IP for monitoring in the setting of severe FGR and NRFA in the setting of polysubstance use. Action: monitor maternal/ wellbeing. Educated patient on s/sx to report. Clustered care to promote rest. Response: Patient verbalizes/demonstrates understanding s/sx to report. NST reactive, +FM, pt denies bleeding, leaking or celine. maintained. * Plan of Care - Ana Kauffman RN - 12/04/2021 1543 EDT Problem: Daily Care Plan Goals Goal: Care Plan Documentation Outcome: Met This Shift Problem: Lifecycle: Antepartum: Goal: Risk for labor will decrease Outcome: Met This Shift Data: Pt here at 28+6 weeks with NRFA. TID NST's. Pt states no bleeding, leaking or celine. Onmethadone maintenance. T+S drawn on 12/02 and covid done on 12/03. Action: VS and assessment per orders, NST completed. Educate pt s/s to report to staff. Response: Pt stable, continue to monitor and assist as needed. 2nd NST at 1700. * Plan of Care - Maribeth Altamirano RN - 12/04/2021 0415 EDT Problem: Daily Care Plan Goals Goal: Care Plan Documentation Outcome: Ongoing Flowsheets (Taken 12/03/2021 1930) Area of Focus: Utero Placental Perfusion Goal This Shift: Maintain . Problem: Nutritional: Goal: Ability to attain and maintain optimal nutritional status will improve Outcome: Ongoing Problem: Activity: Goal: Ability to follow a routine sleep schedule will be adequately managed Outcome: Ongoing Problem: Lifecycle: Antepartum: Goal: Ability to maintain clinical measurements within normal limits will improve Outcome: Ongoing Data: Antepartum pt at 28+6, admitted for non-reassuring heart tones. Pt receiving TID NSTs. Pt got their T&S 12/02 and covid test done on 12/03. Pt has hx of depression, anxiety, hepatitisC positive, anemia, covid in , anemia, trauma and substance use (pt was positive for cocaine on admission and admitted to heroin use one week prior, pt is receiving methadone). Pt is awaiting a med/psych consult for the possibility of going on abilify to treat bipolar disorder and a dentalconsult for tooth pain. Pt is refusing heparin dose. Action: VS and assessment performed. Medications given per AUG. NST completed. Response: VS and assessment stable. Pt denies bleeding, leaking or celine and positive movement. Pt denies all symptoms of preeclampsia. Pt NST was non-reactive with no accelerations, one deceleration at the end of NST (unable to further assess because pt rang holt and was taking herselfoff the monitor when this RN walked in the room and refused to stay on any longer). notified andallowed pt to be taken off the monitor. MARIBETH ALTAMIRANO RN 12/04/2021 4:16 * Plan of Care - Stefan Lea RN - 12/03/2021 1815 EDT Data: Pt here with IUP at 28+5 wga with IUGR and NRFA. Here for monitoring while waiting for safe housing plan. Action: VS and assessment completed. NST completed x2. Encouraged pt to ambulate outside her room. Response: Pt stable. Both NSTs reassuring, neither reactive, MD aware. Pt ambulated around her room, did not ambulate the mercer. Declined Heparin and Senna today Problem: Daily Care Plan Goals Goal: Care Plan Documentation Outcome: Met This Shift Flowsheets (Taken 12/03/2021 1006) Area of Focus: Utero Placental Perfusion Goal This Shift: Maintain STEFAN LEA RN 12/03/2021 18:16 * Plan of Care - Stefan Lea RN - 12/03/2021 1813 EDT NST Report Baseline Heart Rate: 120 Accelerations: absent Movement: present Decelerations: Present x1 lasting 50 sec, kimi to [address] Cheryl smiley Contractions: irritability Interpretation: not reactive [id number] Co-sign Provider (Physician Name): MD STEFAN Rodriguez RN Cosigned by Sandie Gabriel MD at 04/29/2022 13:32 EST * Plan of Care - Stefan Lea RN - 12/03/2021 1045 EDT NST Report Baseline Heart Rate: 130 Accelerations: absent Movement: present Decelerations: absent Contractions: absent Interpretation: not reactive Reviewed by jaylin Avery to take her off monitor. [id number] Co-sign Provider (Physician Name): MD STEFAN Rodriguez RN Cosigned by Sandie Gabriel MD at 04/29/2022 13:32 EST * Plan of Care - Maribeth Altamirano RN - 12/03/2021 0355 EDT Problem: Daily Care Plan Goals Goal: Care Plan Documentation Outcome: Ongoing Flowsheets (Taken 12/03/2021 0106) Area of Focus: Utero Placental Perfusion Goal This Shift: Maintain . Problem: Activity: Goal: Ability to follow a routine sleep schedule will be adequately managed Outcome: Ongoing Problem: Lifecycle: Antepartum: Goal: Ability to maintain clinical measurements within normal limits will improve Outcome: Ongoing Data: Antepartum pt at 28+5, admitted for non-reassuring heart tones. Pt receiving TID NSTs. Pt got their T&S 12/02 and will need to have their covid test done today on day shift. Pt has hxof depression, anxiety, hepatitis C positive, anemia, covid in , anemia, trauma and substance use (pt was positive for cocaine on admission and admitted to heroin use one week prior, pt is receiving methadone). Pt is awaiting a med/psych consult for the possibility of going on abilify to treat bipolar disorder and a dental consult for tooth pain. Pt is refusing heparin dose. Action: VS and assessment performed. Medications given per MAR. NST completed. Response: VS and assessment stable. Pt denies bleeding, leaking or celine and positive movement. Pt denies all symptoms of preeclampsia. Pt NST was non-reactive with one acceleration, no decelerations, moderate variability and irritability on the toco. MD saw NST and gave us permission to take the pt off the monitor. MARIBETH ALTAMIRANO RN 12/03/2021 3:55 * Plan of Care - Santhosh Corcoran RN - 12/02/2021 6604 EDT Problem: Daily Care Plan Goals Goal: Care Plan Documentation Outcome: Met This Shift Flowsheets (Taken 12/02/2021 0848) Area of Focus: Utero Placental Perfusion Goal This Shift: Maintain Note: Data: G2P. Undelivered at 28+4 weeks. NRFA. No BLC. AVSS. Action: NST TID. Response: NSTs reactive x 2 today. AVSS. No c/o. Tooth pain is minimal today. Stated, 'I want to stay here and not go back to [place]. Continue to monitor. Stable AP at this time. SANTHOSH CORCORAN RN 12/02/2021 17:46 * Plan of Care - Kelly Haddad RN - 12/02/2021 0552 EDT Problem: High Fall Risk: Goal: Patient will Remain Free of Falls due to Med. Side Effects Outcome: Met This Shift Problem: Daily Care Plan Goals Goal: Care Plan Documentation Outcome: Met This Shift Flowsheets (Taken 12/01/20212015) Goal This Shift: Pt will maintain Data: Antepartum @ 28 +4. admitted for NRFA. Working with social work for housing after d/c. Action: monitor maternal/ wellbeing. Educated patient on s/sx to report. Response: Patient verbalizes/demonstrates understanding s/sx to report. NST reactive, +FM, pt denies bleeding, leaking or celine. maintained. * Plan of Care - Kelly Foy RN - 12/01/2021 1807 EDT Problem: Daily Care Plan Goals Goal: Care Plan Documentation Outcome: Met This Shift Flowsheets (Taken 12/01/2021 0915) Area of Focus: Utero Placental Perfusion Goal This Shift: Pt will maintian Note: Data: Pt is here with IUP at 28+3 for NRFA. A+. GBS-. . Active COVID swab and Type and Screen. Hx of FGR, methadone therapy, cocaine/heroin/fentanyl use, Hep C +, anxiety and depression. Ptdenies bleeding, leaking and celine. Pt endorses + movement. Pt endorses chronic tooth pain 2-03/21. Action: Assessed per protocol. VS per order. Discussed s/s to report to nursing. NST completed x2. Pt visiting with partner and partner's son today. Response: Stable AP pt. VSS. NST non-reactive, but reassuring. FHT wnl. Continue to monitor. KELLY FOY RN 12/01/2021 18:03 Problem: Lifecycle: Antepartum: Goal: Ability to maintain clinical measurements within normal limits will improve Outcome: Met This Shift Problem: Pain: Goal: Pain level will decrease Outcome: Ongoing * Plan of Care - Traci Pang RN - 12/01/2021 0530 EDT Problem: Daily Care Plan Goals Goal: Care Plan Documentation Outcome: Met This Shift Flowsheets (Taken 12/01/2021 0100) Area of Focus: Communication Goal This Shift: offer pain meds for tooth pain Note: D: Pt reports/rates toothache pain 01/19. A: Interventions provided include medications(see eMAR). R: Pt reports pain after intervention Denies need for further intervention at this time. Problem: Lifecycle: Antepartum: Goal: Ability to maintain clinical measurements within normal limits will improve Outcome: Met This Shift * Plan of Care - Yana Peterson RN - 11/30/2021 1535 EDT Pt. New daily goal is to see the doctor about her painful tooth 10 out of 10 that radiates on the side of her face, to talk to them re her plans because she found out [place] has a 2 month waiting list and she does not want to go to a hotel and to talk to dr about [facility] involvement. Data: dr ribera was told about the tooth pain, the doctors do not yet know she wants to talk to them about the other 2 issues because they are busy with deliveries. Ruth aldridge brent will notifiy them this evening about her desires. Action: give tylenol as ordered. On days mom refused ice but accepted it for anderson. Offer emotional support. Response: mom knows drs. Are busy in delivery and she will see someone later. Mom feels likeher tooth pain prevents her from eating well. YANA PETERSON RN 11/30/2021 15:37 * Plan of Care - Yana Peterson RN - 11/30/2021 1212 EDT Problem: High Fall Risk: Goal: Patient will Remain Free of Falls due to Med. Side Effects Outcome: Met This Shift Problem: Daily Care Plan Goals Goal: Care Plan Documentation Outcome: Met This Shift The goal is to keep a healthy baby inside and to offer emotional support to mom as [place]its going[place] and is upset boyfriend will not bring her clothes to wear. She has no date for [place] yet. Nobleeding, no leaking, mom felt having the nst run it was uncomfortable due to baby moving a lot andneeding to put a little pressure on the ultrasound probe to keep heart rate in. Data: mom vital signs stable, she felt while the ultrasound toco was in place it was uncomfortable.Accelerations were present, abd. Did not palpate firm but mom felt like she had some mild tightening, baby moving all over the place. No bleeding, no leaking Action: watch mom closely for signs of a change in her assessment, signs of labor, signs of distress. Offer emotional support and marleny social services analyst saw her about her having no clothes to go to [place]. Response: mom is a little more uncomfortable today during the nst and upset with fob for not bringing clothes or visiting. She was glad to meet with social services analyst. Mom is on tid nsts YANA PETERSON RN 11/30/2021 12:16 Problem: Pain: Goal: Pain level will decrease Outcome: Met This Shift Problem: Lifecycle: Antepartum: Goal: Ability to maintain clinical measurements within normal limits will improve Outcome: Met This Shift * Plan of Care - Lazaro Torres RN - 11/30/2021 0234 EDT Problem: Daily Care Plan Goals Goal: Care Plan Documentation Outcome: Met This Shift Flowsheets (Taken 11/30/2021 0106) Area of Focus: Utero Placental Perfusion Goal This Shift: maintain Note: Data: Juana Dixon is a 26 y.o.?? woman at 28w2d admitted for monitoring in the setting of severe FGR and NRFA. Action: VS per orders, assessments per protocol, medication per eMAR. NST's TID, obtained at 0115 overnight. Monitored maternal/ wellbeing. Educated patient on s/sx to report. Response: Patient verbalizes/demonstrates understanding s/sx to report. NST reactive, +FM, pt denies bleeding, leaking or celine, but does have uterine irritability. Type and screen active (drawn last evening) and Covid results negative from 11/29/21 swab. maintained. Problem: Lifecycle: Antepartum: Goal: Ability to maintain clinical measurements within normal limits will improve Outcome: Met This Shift * Plan of Care - Beverly Ribera MD - 11/29/2021 1900 EDT NST Report Baseline Heart Rate: 120 Accelerations: present Movement: present Decelerations: absent Contractions: absent Interpretation: reactive Co-sign Provider (Physician Name): SALLY HUTTON RN I reviewed the NST and agree. Beverly Ribera MD * Plan of Care - Yana Peterson RN - 11/29/2021 1226 EDT Problem: Daily Care Plan Goals Goal: Care Plan Documentation Outcome: Met This Shift Goal is to keep the baby inside as long as baby is better off there. Data: mom has no bleeding, no ctx, no leaking, baby is moving, nst reactive on days. Mom had an ultrasound today to check flow. She said flow was ok. The ob resident said she will let us know if she wants type and screen today and covid test today, it depends on discharge plans and when she will goto [facility]. Mom did accept her dtap shot. Action: watch for signs of distress, signs of labor. Offer emotional support. Mom thinks she may go to [place] tomorrow. Response: no signs of labor or distress requiring delivery YANA PETERSON RN 11/29/2021 12:27 Problem: Lifecycle: Antepartum: Goal: Ability to maintain clinical measurements within normal limits will improve Outcome: Met This Shift * Plan of Care - Tabitha Corcoran RN - 11/28/2021 2352 EDT Problem: Daily Care Plan Goals Goal: Care Plan Documentation Outcome: Met This Shift Flowsheets (Taken 11/28/2021 3685) Area of Focus: Utero Placental Perfusion Goal This Shift: Maintain Note: D: antepartum here @ 28 weeks with NRFA and FGR. History of substance abuse and is on methadone. VSS. Antepartum assessment WNL. NST reactive. A: Vital signs, antepartum assessment and NST as ordered. R: Stable antepartum. * Plan of Care - Yana Peterson RN - 11/28/2021 0952 EDT Problem: Daily Care Plan Goals Goal: Care Plan Documentation Outcome: Met This Shift Mothers goal is to keep a healthy baby inside and to hopefully be discharged to the [place] [facility] next week. Data: mom did not want her nst until 1045 today. She has no pain, baby is moving, no contractions, no bleeding, no leaking. Mom needs to move more . Moms lung sounds are slightly diminished, I brought Inspirometer in and explained how to use it and why but she declined at present. She has been declining heparin although she knows the reason for it. Action: watch for change in moms assessment, encourage mom to move more. Offer emotional support Response: at present no signs of labor or distress. YANA PETERSON RN 11/28/2021 9:53 Problem: Lifecycle: Antepartum: Goal: Ability to maintain clinical measurements within normal limits will improve Outcome: Met This Shift * Plan of Care - Glo Loomis RN - 11/28/2021 0359 EDT Problem: Daily Care Plan Goals Goal: Care Plan Documentation Outcome: Ongoing Flowsheets (Taken 11/28/2021 0147) Area of Focus: Utero Placental Perfusion Goal This Shift: Maintain Data: Antepartum @ 28 wks. IP for NRFHR, severe IUGR and TID NST's . Action: monitor maternal/ wellbeing. Educated patient on s/sx to report. Response: Patient verbalizes/demonstrates understanding s/sx to report. NST reactive, +FM, pt denies bleeding, leaking or celine. maintained. GLO LOOMIS RN 11/28/2021 3:59 * Plan of Care - Yana Peterson RN - 11/27/2021 1406 EDT Mom is 28 +0 weeks with nrfa. Mom will hopefully go to the [facility] next week Problem: Daily Care Plan Goals Goal: Care Plan Documentation Outcome: Met This Shift Data: no bleeding, no leaking, no ctx, baby moving, no company yet today. Mom tends to sleep after her methadone dose. Non reactive nst, on tid one. Action: watch for signs of distress. Offer emotional support. Prepare mom for what to expect with an early baby. Response: no sign of labor or distress at present except early and very small. YANA PETERSON RN 11/27/2021 14:08 Problem: Lifecycle: Antepartum: Goal: Ability to maintain clinical measurements within normal limits will improve Outcome: Met This Shift * Plan of Care - Meron Garcia RN - 11/27/2021 0502 EDT Data: 27+6 IP for NRFA and IUGR. Action: Monitor maternal and well-being. Pt educated on dx and care. Response: NST reactive. Denies bleeding, leakage or CTRX. [facility] MERON GARCIA RN 11/27/2021 5:02 * Plan of Care - Yana Peterson RN - 11/26/2021 1331 EDT Mom is planning on being discharged next week to the [facility]. I did not assume care until 1141 from joseluis Galdamez had just finished her nst. dr. Stubbs said she could come off the monitor per joseluis. Baby is very small. 27+5 days with severely small baby and often nrfa. Problem: Daily Care Plan Goals Goal: Care Plan Documentation Outcome: Met This Shift Data: no bleeding, no leaking, no ctx. Mom said she feels the baby move. She was hoping to nap thisafternoon. Joseluis did moms covid test and I released her type and screen. Just make sure she gets drawn by late taniya today. Mom says she is doing ok emotionally, pain is zero. Action:offer emotional support, watch tid nsts closely. Watch for signs of labor. I reinforced significants to report Response: no signs of labor, mom is comfortable. YANA PETERSON RN 11/26/2021 13:33 Problem: Lifecycle: Antepartum: Goal: Ability to maintain clinical measurements within normal limits will improve Outcome: Met This Shift * Plan of Care - Evon Suarez RN - 11/26/2021 0429 EDT Problem: Daily Care Plan Goals Goal: Care Plan Documentation Flowsheets (Taken 11/26/2021 0009) Area of Focus: Utero Placental Perfusion Goal This Shift: maintain Data: Antepartum @ 27 5. IP for NRFA and severe IUGR . Action: monitor maternal/ wellbeing. Educated patient on s/sx to report. Response: Patient verbalizes/demonstrates understanding s/sx to report. NST reactive, +FM, pt denies bleeding, leaking or celine. maintained. * Plan of Care - Yana Peterson RN - 11/25/2021 1401 EDT Problem: Daily Care Plan Goals Goal: Care Plan Documentation Outcome: Met This Shift Goal for mom was to be comfortable and not to have withdrawal symptoms and to have the baby stay inside and be healthy. Data: mom denies bleeding, leaking and contractions, nst did show irritability. Baby is moving. Momsays she is comfortable and much happier having the methadone twice a day instead of a higher dose only once a day. Action: offer emotional support. I did reinforce mom on what symptoms to tell us about. Nst was reactive but mom needs close monitoring for a change in her strip. Response: mom is comfortable and shedoes not show any signs of withdrawal or labor. YANA PETERSON RN 11/25/2021 14:03 Problem: Lifecycle: Antepartum: Goal: Ability to maintain clinical measurements within normal limits will improve Outcome: Met This Shift * Plan of Care - Joycelyn Andrade RN - 11/24/2021 1608 EDT Problem: Daily Care Plan Goals Goal: Care Plan Documentation Outcome: Ongoing Flowsheets (Taken 11/24/2021 0920) Goal This Shift: maintain Note: Data: undelivered at 27+3 weeks with FGR and NRFA; pt denies leaking, bleeding or contractions; shereports 8/10 tooth pain; she is OOB ambulating occasionally, she is declining her heparin that is ordered every 12 hours SQ Action: VS; AP assessment; NST; methadone for polysubstance use Response: reactive NST; tylenol for toothache with some relief JOYCELYN ANDRADE RN 11/24/2021 16:04 * Plan of Care - Evon Suarez RN - 11/24/2021 0223 EDT Problem: Daily Care Plan Goals Goal: Care Plan Documentation Flowsheets (Taken 11/23/2021 1933) Area of Focus: Utero Placental Perfusion Goal This Shift: Maintain Data: Antepartum @ 27 3. IP for NRFA, and severe IUGR . Action: monitor maternal/ wellbeing. Educated patient on s/sx to report. Response: Patient verbalizes/demonstrates understanding s/sx to report. NST not reactive, MD notified and aware, +FM, pt denies bleeding, leaking or celine. maintained. * Plan of Care - Sinan Segura RN - 11/23/2021 1050 EDT Data: 27+2 days with severe IUGR, NRFA and polysubstance abuse. VSS, a. Action: NST done. COVID swab and T&S sent. Encouraged ambulation. Dr. Stubbs aware of NST results and that patient is declining heparin. Gave TDaP VIS. Patient is thinking about it. Response: NST reassuring, not reactive. Variable decel. No contractions, + irritability. Plans on ambulating outside later. Continue to monitor with TID NSTS. Problem: Daily Care Plan Goals Goal: Care Plan Documentation Outcome: Met This Shift Flowsheets (Taken 11/23/2021 0915) Area of Focus: Utero Placental Perfusion Goal This Shift: reassuring NST Problem: Pain: Goal: Pain level will decrease Outcome: Met This Shift Problem: Activity: Goal: Ability to avoid complications of mobility impairment will improve Outcome: Met This Shift SINAN SEGURA RN 11/23/2021 10:50 * Plan of Care - Natacha Little RN - 11/23/2021 0154 EDT Problem: Daily Care Plan Goals Goal: Care Plan Documentation Outcome: Ongoing Flowsheets (Taken 11/23/2021 0103) Goal This Shift: Maintain Problem: Lifecycle: Antepartum: Goal: Ability to maintain clinical measurements within normal limits will improve Outcome: Ongoing Data: Antepartum @ 27 +2. IP for severe early-onset FGR, non-reassuring heart tones, and polysubstance use. Action: monitor maternal/ wellbeing. Educated patient on s/sx to report. Response: Patient verbalizes/demonstrates understanding s/sx to report. NST not reactive and MD notified. +FM, pt denies bleeding, leaking or celine. maintained. * Plan of Care - Lynnette Major RN - 11/22/2021 5917 EDT Data: Antepartum @ 27 1. IP for FGR, polysubstance abuse, and NRFA . Action: monitor maternal/ wellbeing. Educated patient on s/sx to report. Response: Patient verbalizes/demonstrates understanding s/sx to report. NST reactive, +FM, pt denies bleeding, leaking or celine. maintained. * Plan of Care - Anita Smith, ALLEN - 11/22/2021 1355 EDT Problem: Nutritional: Goal: Ability to attain and maintain optimal nutritional status will improve Outcome: Met This Shift Problem: Daily Care Plan Goals Goal: Care Plan Documentation Outcome: Ongoing Flowsheets (Taken 11/22/2021 0900) Area of Focus: Utero Placental Perfusion Goal This Shift: maintain preg D: undel at 27+1 for NRFA, severe FGR, admitted for TID NST. BMZ complete, t/s is active, covid neg. Hep C+, on methadone. UDS + cocaine and +methadone on 11/13/21. Boyfriend visiting. Pt in good spirits asking appropriate questions. A: Educated pt on s/s to report NST TID VS q 8hrs Medicated per e-mar R: NST was not reactive, Dr Wang notified. Pt Denies B/L/C, + FM. Will cont to closely monitor * Plan of Care - Patricia Davis RN - 11/21/2021 1434 EDT Problem: Daily Care Plan Goals Goal: Care Plan Documentation Outcome: Met This Shift Flowsheets (Taken 11/21/2021 1012) Area of Focus: Utero Placental Perfusion Goal This Shift: maintain Note: Data: Antepartum @ 27 weeks. IP for severe FGR and NRFA . TID NST Action: monitor maternal/ wellbeing. Educated patient on s/sx to report. Discussed NST schedule w/patient (0900ish,1700ish ,0100ish) Response: Patient verbalizes/demonstrates understanding s/sx to report. NST reactive but had decelsso was on the monitor [id number], +FM, pt denies bleeding, leaking or celine. maintained. Pt states she likes these current NST times stating she is a night owl and not a morning person Problem: Lifecycle: Antepartum: Goal: Ability to maintain clinical measurements within normal limits will improve Outcome: Met This Shift PATRICIA DAVIS RN 11/21/21 1435 * Plan of Care - Joslyn Haney RN - 11/21/2021 0447 EDT Problem: Daily Care Plan Goals Goal: Care Plan Documentation Outcome: Met This Shift Flowsheets (Taken 11/20/20212017) Area of Focus: Utero Placental Perfusion Goal This Shift: Maintain Problem: Lifecycle: Antepartum: Goal: Ability to maintain clinical measurements within normal limits will improve Outcome: Met This Shift Data: Antepartum @ 27+0. IP for monitoring in the setting of severe FGR and NRFA. Polysubstance use. Action: Monitor maternal/ wellbeing. Educated patient on s/sx to report. NST completed per order, see note. Response: Patient verbalizes/demonstrates understanding s/sx to report. NST not reactive, MD aware.+FM, pt denies bleeding, leaking or celine. maintained. * Plan of Care - Patricia Davis RN - 11/20/2021 1645 EDT Problem: Daily Care Plan Goals Goal: Care Plan Documentation Outcome: Met This Shift Flowsheets (Taken 11/20/2021 0850) Area of Focus: Utero Placental Perfusion Goal This Shift: maintain Note: Data: Antepartum @ 26+ 6. IP for NRFA and severe FGR . NST TID ordered. Action: monitor maternal/ wellbeing. Educated patient on s/sx to report. Response: Patient verbalizes/demonstrates understanding s/sx to report. NST not reactive this am- MD aware, next NST at 1700. +FM, pt denies bleeding, leaking or celine. maintained. Problem: Lifecycle: Antepartum: Goal: Ability to maintain clinical measurements within normal limits will improve Outcome: Met This Shift PATRICIA DAVIS RN 11/20/21 1647 * Plan of Care - Kaela Jones RN - 11/19/2021 0339 EDT Data: 26w5d antepartum patient admitted for NRFA. Hx of polysubstance abuse this with scheduled methadone, Hep C 97k VL and COVID 10/11/21. Complex social situation- partner involved but not staying overnight. TID NSTs. Went over to L&D for extended monitoring for 2 hours d/t decels in evening NST. Action: Vitals, assessment and FHR according to protocol. Assessed bleeding, leaking and contractions. Educated patient to notify RN with any changes to baseline assessment. Transferred to L&D. Response: S/p transfer patient sleeping comfortably in bed. Will continue to monitor. KAELA JONES RN 11/19/2021 3:40 * Plan of Care - Ryanne Mcintyre RN - 11/18/2021 1528 EDT Problem: Activity: Goal: Ability to avoid complications of mobility impairment will improve Outcome: Ongoing Goal: Ability to tolerate increased activity will improve Outcome: Ongoing Data: 26+4 weeks NRFA, TID NSTs. Polysubstance abuse. Action: Highly encouraged pt to be in hallway and ambulate. Encouraged getting oob and going to kitchen for herself. Clustered care for rest. Response: Pt in bed most of shift, other than when in BR. Pt understands above and says she is oob in her room more. Deswhitneya says she is very tired and will get up more this afternoon. She has refused Heparin at this time. RYANNE MCINTYRE RN 11/18/2021 15:29 * Plan of Care - Kaela Jones RN - 11/18/2021 0432 EDT Data: 26w4d antepartum patient admitted for NRFA. Hx of polysubstance abuse this with scheduled methadone, Hep C 97k VL and COVID 10/11/21. Complex social situation- partner involved but not staying overnight. TID NSTs. Action: Vitals, assessment and FHR according to protocol. Administered medication (see eMar). Clustered care to promote rest. Assessed bleeding, leaking and contractions. Educated patient to notify RN with any changes to baseline assessment. Response: Stable VS. Denies bleeding, leaking and contractions. NST complete. Sleeping comfortably.Will continue to monitor. KAELA JONES RN 11/18/2021 4:32 * Plan of Care - Ryanne Mcintyre RN - 11/17/2021 1347 EDT Problem: Lifecycle: Antepartum: Goal: Ability to maintain clinical measurements within normal limits will improve Outcome: Met This Shift Data: 26+4 weeks, polysubstance abuse. Admit for NRFA. TID NSTs Action: VS and AP assessment done. NST done x 2 this shift. Response: Stable AP pt. No c/o. Denies bleeding, leaking or celine. Uterine irritability notedon both NSTs. RYANNE MCINTYRE RN 11/17/2021 13:47 * Plan of Care - Rashmi Monge RN - 11/17/2021 0407 EDT Problem: Daily Care Plan Goals Goal: Care Plan Documentation Outcome: Met This Shift Flowsheets (Taken 11/16/2021 1930) Area of Focus: Utero Placental Perfusion Goal This Shift: Maintain Note: Data: U-26+3 weeks. [place] [facility] [place]. She has a history of opioid use and is on Methadone but also reports using heroine/fentanyl and cocaine recently. Complicated social history. NSTs ordered TID. Patient acknowledges good movement and denies bleeding, leaking or contractions. Notes occasional non-painful tightening. VSS, voiding, eating and drinking without difficulty. She reports having a BM today Action: VS, FHT, NST and assessments completed, educated patient on s/s to report Response: Patient remains stable and . See NST note. FHR 140. Patient was noted to be sleeping much of the night comfortably. RASHMI MONGE RN 11/17/2021 4:04 Problem: Bowel/Gastric: Goal: Ability to achieve a regular elimination pattern will improve Outcome: Met This Shift Problem: Nutritional: Goal: Ability to attain and maintain optimal nutritional status will improve Outcome: Met This Shift * Plan of Care - Rashmi Monge RN - 11/16/2021 0024 EDT Problem: Daily Care Plan Goals Goal: Care Plan Documentation Outcome: Met This Shift Flowsheets (Taken 11/15/20212131) Area of Focus: Utero Placental Perfusion Goal This Shift: Maintain Note: Data: U-26+3 weeks. [place] [facility] [place] and IUFGR. She has a history of opioid use and is on Methadone but also reports using heroine/fentanyl and cocaine recently. NSTs ordered TID. She is s/p Mag for neuroprotection and is BMZ complete. Patient acknowledges good movement and denies bleeding, leaking or contractions. Notes occasional non-painful tightening. VSS, voiding, eatingand drinking without difficulty. Action: VS, FHT, NST and assessments completed, educated patient on s/s to report Response: Patient remains stable and . See NST note. FHR 130. Patient was noted to be sleeping much of the night comfortably. RASHMI MONGE RN 11/16/2021 0:20 Problem: Urinary Elimination: Goal: Will remain free from infection Outcome: Met This Shift Problem: Activity: Goal: Ability to follow a routine sleep schedule will be adequately managed Outcome: Met This Shift documented in this encounter Plan of Treatment Pending Results Name Type Priority Associated Diagnoses Date /Time POC LD US UMBILICAL ARTERY DOPPLER Imaging Routine 11/13/2021 16:45 EDT Scheduled Orders Name Type Priority Associated Diagnoses Orde r Schedule POC LD US UMBILICAL ARTERY DOPPLER Imaging Routine One Time for 1 Occurrences starting 11/15/2021 until 11/15/2021 NONSTRESS TEST OB Routine Poor growth affecting management of mother in second trimester, single or unspecified fetus 1 Occurrences starting 12/09/2021 until 12/09/2022 NONSTRESS TEST OB Routine Poor growth affecting management of mother in third trimester, single or unspecified fetus 1 Occurrences starting 12/09/2021 until 12/09/2022 Scheduled Referrals Name Type Priority Associated Diagnoses Order Schedule PROVIDER FOLLOW-UP INSTRUCTIONS Outpatient Referral Routine/Next Available Ordered: 12/09/2021 documented as of this encounter Procedures Procedure Name Priority Date/Time Associated Diagnosis Comments ECG REPORT - SCANNED 12/14/2021 12:38 EDT TYPE AND SCREEN Routine 12/08/2021 22:29 EDT DRUG SCREEN 11, URINE Routine 12/08/2021 20:52 EDT POC LD US FOLLOW-UP OB Routine 12/06/2021 15:40 EDT POC LD US UMBILICAL ARTERY DOPPLER Routine 12/06/2021 15:40 EDT HCV RNA DETECT QUANT Routine 12/06/2021 10:00 EDT ZZCOVID-19 TEST [facility] PCR Today 12/06/2021 9:54 EDT COVID-19 TESTING Routine 12/06/2021 9:54 EDT TYPE AND SCREEN Routine 12/05/2021 17:45 EDT ZZCOVID-19 TEST [facility] PCR Today 12/03/2021 11:46 EDT COVID-19 TESTING Routine 12/03/2021 11:4 6 EDT TYPE AND SCREEN Routine 12/02/2021 20:21 EDT TYPE AND SCREEN Routine 11/29/2021 22:35 EDT ZZCOVID-19 TEST [facility] PCR Today 11/29/2021 15:18 EDT COVID-19 TESTING Routine 11/29/2021 15:1 8 EDT POC LD US UMBILICAL ARTERY DOPPLER Routine 11/29/2021 12:19 EDT ZZCOVID-19 TEST [facility] PCR Today 11/26/2021 17:08 EDT COVID-19 TESTING Routine 11/26/2021 17:0 8 EDT TYPE AND SCREEN Routine 11/26/2021 14:37 EDT ZZCOVID-19 TEST [facility] PCR Today 11/23/2021 10:30 EDT COVID-19 TESTING Routine 11/23/2021 10:3 0 EDT TYPE AND SCREEN Routine 11/23/2021 7:34 EDT POC LD US UMBILICAL ARTERY DOPPLER Routine 11/22/2021 13:07 EDT POC LD US LIMITED OB SCAN Routine 11/22/2021 13:06 EDT ZZCOVID-19 TEST [facility] PCR Today 11/20/2021 11:08 EDT COVID-19 TESTING Routine 11/20/2021 11:0 8 EDT COMPLETE BLOOD COUNT Routine 11/20/2021 10:25 EDT TYPE AND SCREEN Routine 11/20/2021 10:25 EDT GLUCOSE-1HR GESTATIONAL SCREEN Routine 11/20/2021 10:24 EDT [facility] Today 11/17/2021 12:21 EDT COVID-19 TESTING Routine 11/17/2021 12:2 1 EDT TYPE AND SCREEN Routine 11/17/2021 11:19 EDT ECG REPORT - SCANNED 11/15/2021 15:19 EDT POC LD US MIDDLE CEREBRAL ARTERY DOPPLER Routine 11/15/2021 13:34 EDT HOLD BLUE TOP Routine 11/15/2021 12:25 EDT KLEIHAUER BLOOD ([facility]) Routine 11/15/2021 12:05 EDT TOXOPLASMA AB, IGM, S Routine 11/15/2021 12:05 EDT CMV IGG Routine 11/15/2021 12:05 EDT EKG 12-LEAD Routine 11/15/2021 7:52 EDT GROUP B STREP PCR Routine 11/14/2021 15: 11 EDT PATIENT RE-TYPE Routine 11/13/2021 17:24 EDT POC LD US DETAILED 2ND TRIMESTER OB Routine 11/13/2021 16:44 EDT IUGR (intrauterine growth restriction) affecting care of mother TYPE AND SCREEN Routine 11/13/2021 15:38 EDT documented in this encounter Results * ECG REPORT - SCANNED (12/14/2021 12:38 EDT) 12/14/2021 12:3 8 EDT us Scan 2 Portfolio Accountant PROCEDURE/MINOR SURGICAL OR DERABLES Final Result * TYPE AND SCREEN (12/08/2021 22:29 EDT) ABO A 12/08/2021 23:14 EDT [facility] Rh Factor Positive 12/08/2021 23:14 EDT [facility] Antibody Screen Negative 12/08/2021 23:14 EDT [facility] Specimen Expires: 12/11/2021 @ 23:59 12/08/2021 23:14 EDT [facility] Blood VENOUS BLOOD / Unknown Venipuncture / Unknown 12/08/2021 22:29 EDT 12/08/2021 22:36 EDT us Anamika Wang MD BLOOD BANK TESTS Edited Re sult - Final Performing Organization Address City/State/[facility] Co de Phone Number [facility] [address] [place] [address] * (ABNORMAL) DRUG SCREEN 11, URINE (12/08/2021 20:52 EDT) Amphetamine Screen, Ur Negative Screen Negative, Negative Screen 12/08/2021 22:17 T [facility] Comment: Confirmation testing available upon request. Suitable for medical purposes only. Will not detect all drugs within class. Cutoff = 500 ng/mL Barbiturates Screen, Ur Negative Screen Negative, Negative Screen 12/08/2021 22:17 [facility] Comment: Confirmation testing available upon request. Suitable for medical purposes only. Will not detect all drugs within class. Cutoff = 200 ng/mL Benzodiazepine Screen, Ur Negative Screen Negative, Negative Screen 12/08/2021 22:17 [facility] Comment: Confirmation testing available upon request. Suitable for medical purposes only. Will not detect all drugs within class. Cutoff = 150 ng/mL Buprenorphine and Metabolites Screen, Ur Negative Screen Negative, Negative Screen 12/08/2021 22:17 [facility] Comment: Confirmation testing available upon request. Suitable for medical purposes only. Will not detect all drugs within class. Cutoff = 10 ng/mL Cannabinoids Screen, Ur Negative Screen Negative, Negative Screen 12/08/2021 22:17 [facility] Comment: Confirmation testing available upon request. Suitable for medical purposes only. Will not detect all drugs within class. Cutoff = 50 ng/mL Cocaine Metabolites Screen, Ur Negative Screen Negative, Negative Screen 12/08/2021 22:17 [facility] Comment: Confirmation testing available upon request. Suitable for medical purposes only. Will not detect all drugs within class. Cutoff = 150 ng/mL Methadone Screen, Ur Presumptive Positive, interpret with caution.(A) Negative, Negative Screen 12/08/2021 22:17 [facility] Comment: Confirmation testing available upon request. Suitable for medical purposes only. Will not detect all drugs within class. Cutoff = 200 ng/mL Methamphetamine Screen, Ur Negative Screen Negative, Negative Screen 12/08/2021 22:17 [facility] Comment: Confirmation testing available upon request. Suitable for medical purposes only. Will not detect all drugs within class. Cutoff = 500 ng/mL Opiates Screen, Ur Negative Screen Negative, Negative Screen 12/08/2021 22:17 [facility] Comment: Confirmation testing available upon request. Suitable for medical purposes only. Will not detect all drugs within class. Cutoff = 100 ng/mL Oxycodone Screen, Ur Negative Screen Negative, Negative Screen 12/08/2021 22:17 [facility] Comment: Confirmation testing available upon request. Suitable for medical purposes only. Will not detect all drugs within class. Cutoff = 100 ng/mL Propoxyphene Screen, Ur Negative Screen Negative, Negative Screen 12/08/2021 22:17 [facility] Comment: Confirmation testing available upon request. Suitable for medical purposes only. Will not detect all drugs within class. Cutoff = 300 ng/mL Urine URINE SPECIMEN COLLECTION, CLEAN CATCH / Unknown 12/08/2021 20:52 EDT 12/08/2021 21:59 EDT Rafy Daley MD GEN LAB UNIT COLLECT SHAYLEE MCGILL Final Result [facility] [address] [place] [id number] * POC LD US FOLLOW-UP OB (12/06/2021 15:40 EDT) Anatomical Region Laterality Modality Ultrasound 12/06/2021 11:3 0 EDT Narrative 12/06/2021 16:10 EDT Indication ======== growth restriction Polysubstance Abuse History ====== Previous Outcomes ?2 Para ?? 1 Pregnancies delivered at term (T) ??1 Pregnancies delivered (P) ??0 Abortions (A) ??0 Living children (L) ?1 ========= Number of fetuses: 1 Dating ====== LMP on: ?05/12/2021 GA by LMP ??29 w + 5 d MYCHAL by LMP : ? 02/16/2022 Previous Ultrasound on: ?08/10/2021 Type of prior assessment: ??CRL U/S measurement at prior assessment date ?? 56.3 mm GA by previous U/S 29 w + 1 d MYCHAL by previous Ultrasound: ?02/20/2022 Ultrasound examination on: 12/06/2021 GA by U/S based upon: ??AC, BPD, Femur, HC GA by U/S ??28 w + 0 d MYCHAL by U/S: ?02/28/2022 Assigned: ??based on ultrasound (CRL), selected on 11/13/2021 Assigned GA ?29 w + 1 d Assigned MYCHAL: ??02/20/2022 General Evaluation Cardiac activity Present. FHR 136 bpm. movements: visualized. Presentation: breech, spine maternal left Placenta: anterior Amniotic fluid: Amount of AF: normal. MVP 4.2 cm. CHAS 9.4 cm. Q1 2.3 cm, Q2 2.9 cm, Q3 4.2 cm, Q4 0.0 cm Anatomy Cranium: ?? normal Lateral ventricles: ?normal Midline falx: ??normal Head / Neck Cranium: ?? normal shape and size 4-chamber view: ?normal Stomach: ?? normal Bladder: ?? normal Abdomen Rt kidney: not adequately visualized Lt kidney: normal sex: male Wants to know sex: ?? yes Biometry Standard BPD ?68.3 mm 27w 3d 4% Hadlock OFD ?91.5 mm 29w 4d 60% Maeve HC 255.1 mm ?27w 2d 12% [place] AC 257.7 mm ?30w 0d 68% Hadlock Femur ??50.5 mm 27w 2d 6% Maeve HC / AC ?0.99 EFW ?1,257 g ??14% Fountain EFW (lb) ?? 2 lb EFW (oz) ?? 12 oz EFW by: ?Hadlock ([id number]) Extended Auto Air Conditioning Apprentice 5.4 mm Head / Face / Neck Cephalic index 0.75 ? 10% Nicolaides Extremities / Bony Struc FL / BPD ?? 0.74 FL / HC ?0.20 FL / AC ?0.20 Other Structures FHR ?136 bpm Doppler Arterial Umbilical A PI 0.97 ? 49% Fermin Umbilical A RI 0.65 ? 51% Fermin Umbilical A PS 45.23 cm/s ?? 54% Ebbing Umbilical A ?ED ?15.75 cm/s Umbilical A TAmax ??30.44 cm/s ?? 59% Ebbing Umbilical A MD 15.27 cm/s Umbilical A S / D ??2.88 ? 48% Fermni Umbilical A HR 135 bpm Growth Overview Exam date ??GA ??BPD (mm) ?HC (mm) AC (mm) FL (mm) HL (mm) EFW (g) 11/13/2021 ??25w 6d ??52.9 ?<1% 214.8 ?? 4% ??193.8 ?? 4% ??40.5 ?2% ??39.7 ?5% ??607 <1% 12/06/2021 29w 1d ??68.3 ?4% ??255.1 ?? 12% 257.7 ?? 68% 50.5 ?6% ??1257 ?14% Method ====== Voluson E10, Transabdominal ultrasound examination. View: Limited by position Impression ========= [id number] Follow-up obstetrical ultrasound This is a paiz gestation. biometry is consistent with prior dating. The right kidney cannot be adequately visualized due to position. Except where noted above, the anatomy was not reviewed in detail as this is a follow-up study and the anatomy was previously assessed. Normal fluid and movement are noted [id number] Umbilical artery Doppler study Doppler waveforms of the umbilical artery are normal. Follow-up ======== Recommend follow-up ultrasound for growth in 3 weeks. DATE OF SERVICE: /<OBR Procedure Note Jackeline Fenton MD - 12/06/2021 Indication ======== growth restriction Polysubstance Abuse History ====== Previous Outcomes 2 Para 1 Pregnancies delivered at term (T) 1 Pregnancies delivered (P) 0 Abortions (A) 0 Living children (L) 1 ========= Number of fetuses: 1 Dating ====== LMP on: 05/12/2021 GA by LMP 29 w + 5 d MYCHAL by LMP : 02/16/2022 Previous Ultrasound on: 08/10/2021 Type of prior assessment: CRL U/S measurement at prior assessment date 56.3 mm GA by previous U/S 29 w + 1 d MYCHAL by previous Ultrasound: 02/20/2022 Ultrasound examination on: 12/06/2021 GA by U/S based upon: AC, BPD, Femur, HC GA by U/S 28 w + 0 d MYCHAL by U/S: 02/28/2022 Assigned: based on ultrasound (CRL), selected on 11/13/2021 Assigned GA 29 w + 1 d Assigned MYCHAL: 02/20/2022 General Evaluation Cardiac activity Present. FHR 136 bpm. movements: visualized.Presentation: breech, spine maternal left Placenta: anterior Amniotic fluid: Amount of AF: normal. MVP 4.2 cm. CHAS 9.4 cm. Q1 2.3 cm,Q2 2.9 cm, Q3 4.2 cm, Q4 0.0 cm Anatomy Cranium: normal Lateral ventricles: normal Midline falx: normal Head / Neck Cranium: normal shape and size 4-chamber view: normal Stomach: normal Bladder: normal Abdomen Rt kidney: not adequately visualized Lt kidney: normal sex: male Wants to know sex: yes Biometry Standard BPD 68.3 mm 27w 3d 4% Hadlock OFD 91.5 mm 29w 4d 60% Maeve HC 255.1 mm 27w 2d 12% Chervenak AC 257.7 mm 30w 0d 68% Hadlock Femur 50.5 mm 27w 2d 6% Maeve HC / AC 0.99 EFW 1,257 g 14% Fountain EFW (lb) 2 lb EFW (oz) 12 oz EFW by: Hadlock ([id number]) Extended Auto Air Conditioning Apprentice 5.4 mm Head / Face / Neck Cephalic index 0.75 10% Nicolaides Extremities / Bony Struc FL / BPD 0.74 FL / HC 0.20 FL / AC 0.20 Other Structures FHR 136 bpm Doppler Arterial Umbilical A PI 0.97 49% Fermin Umbilical A RI 0.65 51% Fermin Umbilical A PS 45.23 cm/s 54% Ebbing Umbilical A ED 15.75 cm/s Umbilical A TAmax 30.44 cm/s 59% Ebbing Umbilical A MD 15.27 cm/s Umbilical A S / D 2.88 48% Fermin Umbilical A HR 135 bpm Growth Overview Exam date GA BPD (mm) HC (mm) AC (mm) FL (mm) HL (mm) EFW (g) 11/13/2021 25w 6d 52.9 <1% 214.8 4% 193.8 4% 40.5 2% 39.75% 607 <1% 12/06/2021 29w 1d 68.3 4% 255.1 12% 257.7 68% 50.5 6% 685305% Method ====== Voluson E10, Transabdominal ultrasound examination. View: Limited by fetalposition Impression ========= [id number] Follow-up obstetrical ultrasound This is a paiz gestation. biometry is consistent with prior dating. The right kidney cannot be adequately visualized due to position. Except where noted above, the anatomy was not reviewed in detail asthis is a follow-up study and the anatomy was previously assessed. Normal fluid and movement are noted 31800 Umbilical artery Doppler study Doppler waveforms of the umbilical artery are normal. Follow-up ======== Recommend follow-up ultrasound for growth in 3 weeks. DATE OF SERVICE: ..1/<OBR us Jackeline Fenton MD IMG US LD ORDERABLES Chloe l Result * POC LD US UMBILICAL ARTERY DOPPLER (12/06/2021 15:40 EDT) Anatomical Region Laterality Modality Ultrasound 12/06/2021 11:3 0 EDT Narrative 12/06/2021 16:10 EDT Indication ======== growth restriction Polysubstance Abuse History ====== Previous Outcomes ?2 Para ?? 1 Pregnancies delivered at term (T) ??1 Pregnancies delivered (P) ??0 Abortions (A) ??0 Living children (L) ?1 ========= Number of fetuses: 1 Dating ====== LMP on: ?05/12/2021 GA by LMP ??29 w + 5 d MYCHAL by LMP : ? 02/16/2022 Previous Ultrasound on: ?08/10/2021 Type of prior assessment: ??CRL U/S measurement at prior assessment date ?? 56.3 mm GA by previous U/S 29 w + 1 d MYCHAL by previous Ultrasound: ?02/20/2022 Ultrasound examination on: 12/06/2021 GA by U/S based upon: ??AC, BPD, Femur, HC GA by U/S ??28 w + 0 d MYCHAL by U/S: ?02/28/2022 Assigned: ??based on ultrasound (CRL), selected on 11/13/2021 Assigned GA ?29 w + 1 d Assigned MYCHAL: ??02/20/2022 General Evaluation Cardiac activity Present. FHR 136 bpm. movements: visualized. Presentation: breech, spine maternal left Placenta: anterior Amniotic fluid: Amount of AF: normal. MVP 4.2 cm. CHAS 9.4 cm. Q1 2.3 cm, Q2 2.9 cm, Q3 4.2 cm, Q4 0.0 cm Anatomy Cranium: ?? normal Lateral ventricles: ?normal Midline falx: ??normal Head / Neck Cranium: ?? normal shape and size 4-chamber view: ?normal Stomach: ?? normal Bladder: ?? normal Abdomen Rt kidney: not adequately visualized Lt kidney: normal sex: male Wants to know sex: ?? yes Biometry Standard BPD ?68.3 mm 27w 3d 4% Hadlock OFD ?91.5 mm 29w 4d 60% Maeve HC 255.1 mm ?27w 2d 12% Chervenak AC 257.7 mm ?30w 0d 68% Hadlock Femur ??50.5 mm 27w 2d 6% Maeve HC / AC ?0.99 EFW ?1,257 g ??14% Fountain EFW (lb) ?? 2 lb EFW (oz) ?? 12 oz EFW by: ?Hadlock ([id number]) Extended Auto Air Conditioning Apprentice 5.4 mm Head / Face / Neck Cephalic index 0.75 ? 10% Nicolaides Extremities / Bony Struc FL / BPD ?? 0.74 FL / HC ?0.20 FL / AC ?0.20 Other Structures FHR ?136 bpm Doppler Arterial Umbilical A PI 0.97 ? 49% Fermin Umbilical A RI 0.65 ? 51% Fermin Umbilical A PS 45.23 cm/s ?? 54% Ebbing Umbilical A ?ED ?15.75 cm/s Umbilical A TAmax ??30.44 cm/s ?? 59% Ebbing Umbilical A MD 15.27 cm/s Umbilical A S / D ??2.88 ? 48% Fermin Umbilical A HR 135 bpm Growth Overview Exam date ??GA ??BPD (mm) ?HC (mm) AC (mm) FL (mm) HL (mm) EFW (g) 11/13/2021 ??25w 6d ??52.9 ?<1% 214.8 ?? 4% ??193.8 ?? 4% ??40.5 ?2% ??39.7 ?5% ??607 <1% 12/06/2021 29w 1d ??68.3 ?4% ??255.1 ?? 12% 257.7 ?? 68% 50.5 ?6% ??1257 ?14% Method ====== Voluson E10, Transabdominal ultrasound examination. View: Limited by position Impression ========= 73307 Follow-up obstetrical ultrasound This is a paiz gestation. biometry is consistent with prior dating. The right kidney cannot be adequately visualized due to position. Except where noted above, the anatomy was not reviewed in detail as this is a follow-up study and the anatomy was previously assessed. Normal fluid and movement are noted 84329 Umbilical artery Doppler study Doppler waveforms of the umbilical artery are normal. Follow-up ======== Recommend follow-up ultrasound for growth in 3 weeks. DATE OF SERVICE: /<OBR Procedure Note Jackeline Fenton MD - 12/06/2021 Indication ======== growth restriction Polysubstance Abuse History ====== Previous Outcomes 2 Para 1 Pregnancies delivered at term (T) 1 Pregnancies delivered (P) 0 Abortions (A) 0 Living children (L) 1 ========= Number of fetuses: 1 Dating ====== LMP on: 05/12/2021 GA by LMP 29 w + 5 d MYCHAL by LMP : 02/16/2022 Previous Ultrasound on: 08/10/2021 Type of prior assessment: CRL U/S measurement at prior assessment date 56.3 mm GA by previous U/S 29 w + 1 d MYCHAL by previous Ultrasound: 02/20/2022 Ultrasound examination on: 12/06/2021 GA by U/S based upon: AC, BPD, Femur, HC GA by U/S 28 w + 0 d MYCHAL by U/S: 02/28/2022 Assigned: based on ultrasound (CRL), selected on 11/13/2021 Assigned GA 29 w + 1 d Assigned MYCHAL: 02/20/2022 General Evaluation Cardiac activity Present. FHR 136 bpm. movements: visualized.Presentation: breech, spine maternal left Placenta: anterior Amniotic fluid: Amount of AF: normal. MVP 4.2 cm. CHAS 9.4 cm. Q1 2.3 cm,Q2 2.9 cm, Q3 4.2 cm, Q4 0.0 cm Anatomy Cranium: normal Lateral ventricles: normal Midline falx: normal Head / Neck Cranium: normal shape and size 4-chamber view: normal Stomach: normal Bladder: normal Abdomen Rt kidney: not adequately visualized Lt kidney: normal sex: male Wants to know sex: yes Biometry Standard BPD 68.3 mm 27w 3d 4% Hadlock OFD 91.5 mm 29w 4d 60% Maeve HC 255.1 mm 27w 2d 12% Chervenak AC 257.7 mm 30w 0d 68% Hadlock Femur 50.5 mm 27w 2d 6% Maeve HC / AC 0.99 EFW 1,257 g 14% Fountain EFW (lb) 2 lb EFW (oz) 12 oz EFW by: Hadlock ([id number]) Extended Auto Air Conditioning Apprentice 5.4 mm Head / Face / Neck Cephalic index 0.75 10% Nicolaides Extremities / Bony Struc FL / BPD 0.74 FL / HC 0.20 FL / AC 0.20 Other Structures FHR 136 bpm Doppler Arterial Umbilical A PI 0.97 49% Fermin Umbilical A RI 0.65 51% Fermin Umbilical A PS 45.23 cm/s 54% Ebbing Umbilical A ED 15.75 cm/s Umbilical A TAmax 30.44 cm/s 59% Ebbing Umbilical A MD 15.27 cm/s Umbilical A S / D 2.88 48% Fermin Umbilical A HR 135 bpm Growth Overview Exam date GA BPD (mm) HC (mm) AC (mm) FL (mm) HL (mm) EFW (g) 11/13/2021 25w 6d 52.9 <1% 214.8 4% 193.8 4% 40.5 2% 39.75% 607 <1% 12/06/2021 29w 1d 68.3 4% 255.1 12% 257.7 68% 50.5 6% 482010% Method ====== Voluson E10, Transabdominal ultrasound examination. View: Limited by fetalposition Impression ========= 37426 Follow-up obstetrical ultrasound This is a paiz gestation. biometry is consistent with prior dating. The right kidney cannot be adequately visualized due to position. Except where noted above, the anatomy was not reviewed in detail asthis is a follow-up study and the anatomy was previously assessed. Normal fluid [place] movement [place] noted 62168 Umbilical artery Doppler study Doppler waveforms of the umbilical artery are normal. Follow-up ======== Recommend follow-up ultrasound for growth in 3 weeks. DATE OF SERVICE: /./<OBR us Jackeline Fenton MD [facility] LD ORDERABLES Chloe l Result * (ABNORMAL) HCV RNA DETECT QUANT (12/06/2021 10:00 EDT) Pathologist [facility] [place] HCV RNA Qualitative Detected( A) Undetected 12/08/2021 12:34 EDT [facility] HCV RNA Quantitative 73,900(H) Undetected IU/mL 12/08/2021 12:34 EDT [facility] Blood VENOUS BLOOD / Unknown Venipuncture / Unknown 12/06/2021 10:00 EDT 12/06/2021 10:52 EDT Narrative [facility] - 12/08/2021 12:34 EDT The quantification range of this assay is 15 IU/mL to 100,000,000 IU/mL. Testing was performed using the Christy HCV test ([employer] with the christy Whirlpool0 System. Adrienne Luna MD CHEMISTRY & BLOOD GAS ORDERABLES Final Result Performing Organization Address [facility] Co de Phone Number [facility] [address] [place] [address] * COVID-19 TEST [facility] PCR (12/06/2021 9:54 EDT) Swab BOTH ANTERIOR NARES / Unknown Swab / Unknown 12/06/2021 9:54 EDT 12/06/2021 10:09 EDT Adrienne Luna MD MICROBIOLOGY - GENERAL ORDERABLE S Final Result Performing Organization Address [facility] Co de Phone Number [facility] [address] [place] [address] * COVID-19 TESTING (12/06/2021 9:54 EDT) Pathologist [facility] [place] COVID-19 rt-PCR Result Negative Negative 12/06/2021 15:14 EDT [facility] Comment: This test has not been FDA cleared or approved. This test has been authorized by FDA under an EUA for use by authorized laboratories. This test has been authorized only for detection of nucleic acid from 2018-, not for any other viruses or pathogens. [...] history, and epidemiological information. Performed on the [employer] Fusion instrument Performing Lab [place] [facility] 12/06/2021 15:14 EDT [facility] Swab BOTH ANTERIOR NARES / Unknown Swab / Unknown 12/06/2021 9:54 EDT 12/06/2021 10:09 EDT us Adrienne Luna MD MICROBIOLOGY - GENERAL ORDERABLE S Final Result Performing Organization Address City/[facility] Co de Phone Number [facility] [address] [place] [address] * TYPE AND SCREEN (12/05/2021 17:45 EDT) ABO A 12/05/2021 18:39 EDT [facility] Rh Factor Positive 12/05/2021 18:39 EDT [facility] Antibody Screen Negative 12/05/2021 18:39 EDT [facility] Specimen Expires: 12/08/2021 @ 23:59 12/05/2021 18:39 EDT [facility] Blood VENOUS BLOOD / Unknown Venipuncture / Unknown 12/05/2021 17:45 EDT 12/05/2021 17:52 EDT us Anamika Wang MD BLOOD BANK TESTS Edited Re sult - Final Performing Organization Address [facility] Co de Phone Number [facility] [address] [place] [address] * COVID-19 TEST [facility] PCR (12/03/2021 11:46 EDT) Swab BOTH ANTERIOR NARES / Unknown Swab / Unknown 12/03/2021 11:46 EDT 12/03/2021 11:52 EDT Adrienne Luna MD MICROBIOLOGY - GENERAL ORDERABLE S Final Result Performing Organization Address [facility] de Phone Number [facility] [address] [place] [address] * COVID-19 TESTING (12/03/2021 11:46 EDT) Pathologist [facility] [place] COVID-19 rt-PCR Result Negative Negative 12/03/2021 20:43 EDT [facility] Comment: This test has not been FDA cleared or approved. This test has been authorized by FDA under an EUA for use by authorized laboratories. This test has been authorized only for detection of nucleic acid from 2019-nCoV, not for any other viruses or pathogens. [...] history, and epidemiological information. Performed on the [employer] Fusion instrument Performing Lab [place] [facility] 12/03/2021 20:43 EDT [facility] Swab BOTH ANTERIOR NARES / Unknown Swab / Unknown 12/03/2021 11:46 EDT 12/03/2021 11:52 EDT Adrienne Luna MD MICROBIOLOGY - GENERAL ORDERESPINOZA S Final Result Performing Organization Address [facility]/ZIP Co de Phone Number [facility] [address] [place] [id number] * TYPE AND SCREEN (12/02/2021 20:21 EDT) ABO A 12/02/2021 21:41 EDT [facility] Rh Factor Positive 12/02/2021 21:41 EDT [facility] Antibody Screen Negative 12/02/2021 21:41 EDT [facility] Specimen Expires: 12/05/2021 @ 23:59 12/02/2021 21:41 EDT [facility] Blood VENOUS BLOOD / Unknown Venipuncture / Unknown 12/02/2021 20:21 EDT 12/02/2021 20:29 EDT Anamika Wang MD BLO[facility] TESTS Edited [facility] Final Performing Organization Address [facility] Co de Phone Number [facility] [address] [facility] [place] [address] * TYPE AND SCREEN (11/29/2021 22:35 EDT) ABO A 11/29/2021 23:25 EDT [facility] Rh Factor Positive 11/29/2021 23:25 EDT [facility] Antibody Screen Negative 11/29/2021 23:25 EDT [facility] Specimen Expires: 12/02/2021 @ 23:59 11/29/2021 23:25 EDT [facility] Blood VENOUS BLOOD / Unknown Venipuncture / Unknown 11/29/2021 22:35 EDT 11/29/2021 22:47 EDT Anamika Wang MD BLOOD BANK TESTS Edited Re sult - Final [facility] [address] [facility] [place] [address] * COVID-19 TEST [facility] PCR (11/29/2021 15:18 EDT) Swab BOTH ANTERIOR NARES / Unknown Swab / Unknown 11/29/2021 15:18 EDT 11/29/2021 15:25 EDT Adrienne Luna MD MICROBIOLOGY - GENERAL ORDERABLE S Final Result Performing Organization Address [facility]/ZIP Co de Phone Number [facility] [address] [place] [address] * COVID-19 TESTING (11/29/2021 15:18 EDT) COVID-19 rt-PCR Result Negative Negative 11/29/2021 20:26 EDT [facility] Comment: This test has not been FDA cleared or approved. This test has been authorized by FDA under an EUA for use by authorized laboratories. This test has been authorized only for detection of nucleic acid from 2019-nCoV, not for any other viruses or pathogens. [...] history, and epidemiological information. Performed on the [employer] Fusion instrument Performing Lab [place] [facility] 11/29/2021 20:26 EDT [facility] Swab BOTH ANTERIOR NARES / Unknown Swab / Unknown 11/29/2021 15:18 EDT 11/29/2021 15:25 EDT Adrienne Luna MD MICROBIOLOGY - GENERAL СЕРГЕЙ S Final Result [facility] [address] [place] [address] * POC LD US UMBILICAL ARTERY DOPPLER (11/29/2021 12:19 EDT) Anatomical Region Laterality Modality Ultrasound 11/29/2021 11:3 5 EDT Narrative 11/29/2021 14:57 EDT Indication ======== growth restriction History ====== Previous Outcomes ?2 Para ?? 1 Pregnancies delivered at term (T) ??1 Pregnancies delivered (P) ??0 Abortions (A) ??0 Living children (L) ?1 ========= Number of fetuses: 1 Dating ====== LMP on: ?05/12/2021 GA by LMP ??28 w + 5 d MYCHAL by LMP : ? 02/16/2022 Previous Ultrasound on: ?08/10/2021 Type of prior assessment: ??CRL U/S measurement at prior assessment date ?? 56.3 mm GA by previous U/S 28 w + 1 d MYCHAL by previous Ultrasound: ?02/20/2022 Assigned: ??based on ultrasound (CRL), selected on 11/13/2021 Assigned GA ?28 w + 1 d Assigned MYCHAL: ??02/20/2022 General Evaluation Cardiac activity Present. FHR 122 bpm. movements: visualized. Presentation: breech Placenta: anterior Amniotic Fluid Assessment Amount of AF: normal MVP 8.7 cm. CHAS 18.7 cm. Q1 5.5 cm, Q2 4.5 cm, Q3 8.7 cm, Q4 0.0 cm Anatomy sex: male Doppler Arterial Umbilical artery: ??normal Umbilical A PI 1.06 ?62% Fermin Umbilical A RI 0.66 ?51% Fermin Umbilical A PS 40.67 cm/s ??31% Ebbing Umbilical A ?ED ?13.72 cm/s Umbilical A EDF: ?? positive Umbilical A TAmax ??22.00 cm/s ??7% Ebbing Umbilical A MD 10.30 cm/s Umbilical A S / D ??2.96 ?47% Fermin Umbilical A HR 131 bpm Right mid cerebral artery: normal Rt MCA PI ??1.75 ?26% Bahlmann Rt MCA RI ??0.81 ?55% Bahlmann Rt MCA PS ??38.88 cm/s MoM ?1.05 Rt MCA ED ??7.32 cm/s Rt MCA S / D ?? 5.31 CPR PI of rt MCA ?? 1.65 ?11% Ebbing Impression: ?Normal Doppler study Growth Overview Exam date ??GA ??BPD (mm) ?HC (mm) AC (mm) FL (mm) HL (mm) EFW (g) 11/13/2021 ??25w 6d ??52.9 ?<1% 214.8 ?? 4% ??193.8 ?? 4% ??40.5 ?2% ??39.7 ?5% ??607 <1% Method ====== Transabdominal ultrasound examination, Voluson E10. View: Sufficient Impression ========= 55477 Limited obstetrical ultrasound This is a paiz gestation. The anatomy was not reviewed in detail. movement was noted. The amniotic fluid volume appears normal. 81339 Umbilical artery Doppler study Doppler waveforms of the umbilical artery are normal. 14907 Middle cerebral artery Doppler study Doppler waveforms of the middle cerebral artery are normal. The cerebro- placental index is normal at 11% (abnormal < 5%). The ductus venosus waveform is normal. Follow-up ======== High intensity FGR-Recommend weekly umbilical artery Dopplers and CHAS with growth every 3 weeks adding weekly testing after 32 weeks and MCA Dopplers at 35 weeks. DATE OF SERVICE: 11/29/2021 Procedure Note Beverly Ribera MD - 11/29/2021 Indication ======== growth restriction History ====== Previous Outcomes 2 Para 1 Pregnancies delivered at term (T) 1 Pregnancies delivered (P) 0 Abortions (A) 0 Living children (L) 1 ========= Number of fetuses: 1 Dating ====== LMP on: 05/12/2021 GA by LMP 28 w + 5 d MYCHAL by LMP : 02/16/2022 Previous Ultrasound on: 08/10/2021 Type of prior assessment: CRL U/S measurement at prior assessment date 56.3 mm GA by previous U/S 28 w + 1 d MYCHAL by previous Ultrasound: 02/20/2022 Assigned: based on ultrasound (CRL), selected on 11/13/2021 Assigned GA 28 w + 1 d Assigned MYCHAL: 02/20/2022 General Evaluation Cardiac activity Present. FHR 122 bpm. movements: visualized.Presentation: breech Placenta: anterior Amniotic Fluid Assessment Amount of AF: normal MVP 8.7 cm. CHAS 18.7 cm. Q1 5.5 cm, Q2 4.5 cm, Q3 8.7 cm, Q4 0.0 cm Anatomy sex: male Doppler Arterial Umbilical artery: normal Umbilical A PI 1.06 62% Fermin Umbilical A RI 0.66 51% Fermin Umbilical A PS 40.67 cm/s 31% Ebbing Umbilical A ED 13.72 cm/s Umbilical A EDF: positive Umbilical A TAmax 22.00 cm/s 7% Ebbing Umbilical A MD 10.30 cm/s Umbilical A S / D 2.96 47% Fermin Umbilical A HR 131 bpm Right mid cerebral artery: normal Rt MCA PI 1.75 26% Bahlmann Rt MCA RI 0.81 55% Bahlmann Rt MCA PS 38.88 cm/s MoM 1.05 Rt MCA ED 7.32 cm/s Rt MCA S / D 5.31 CPR PI of rt MCA 1.65 11% Ebbing Impression: Normal Doppler study Growth Overview Exam date GA BPD (mm) HC (mm) AC (mm) FL (mm) HL (mm) EFW (g) 11/13/2021 25w 6d 52.9 <1% 214.8 4% 193.8 4% 40.5 2% 39.75% 607 <1% Method ====== Transabdominal ultrasound examination, Voluson E10. View: Sufficient Impression ========= 07938 Limited obstetrical ultrasound This is a paiz gestation. The anatomy was not reviewed in detail. movement was noted. Theamniotic fluid volume appears normal. 86471 Umbilical artery Doppler study Doppler waveforms of the umbilical artery are normal. 54771 Middle cerebral artery Doppler study Doppler waveforms of the middle cerebral artery are normal. Thecerebro-placental index is normal at 11% (abnormal < 5%). The ductus venosus waveform is normal. Follow-up ======== High intensity FGR-Recommend weekly umbilical artery Dopplers and CHAS withgrowth every 3 weeks adding weekly testing after 32 weeks andMCA Dopplers at 35 weeks. DATE OF SERVICE: 11/29/2021 us Beverly Ribera MD [facility] ORDERABLES Final Result * COVID-19 TEST [facility] PCR (11/26/2021 17:08 EDT) Swab BOTH ANTERIOR NARES / Unknown Swab / Unknown 11/26/2021 17:08 EDT 11/26/2021 17:13 EDT us Anamika Wang MD MICROBIOLOGY - GENERAL ORD ERABLES Final Result [facility] [address] [place] [address] * COVID-19 TESTING (11/26/2021 17:08 EDT) COVID-19 rt-PCR Result Negative Negative 11/26/2021 20:34 EDT [facility] Comment: This test has not been FDA cleared or approved. This test has been authorized by FDA under an EUA for use by authorized laboratories. This test has been authorized only for detection of nucleic acid from 2019-nCoV, not for any other viruses or pathogens. [...] history, and epidemiological information. Performed on the [employer] [place] Fusion instrument Performing Lab [place] [facility] 11/26/2021 20:34 EDT [facility] Swab BOTH ANTERIOR NARES / Unknown Swab / Unknown 11/26/2021 17:08 EDT 11/26/2021 17:13 EDT us Anamika Wang MD MICROBIOLOGY - GENERAL ORD ERABLES Final Result Performing Organization Address [facility] Co de Phone Number [facility] [address] [place] [address] * TYPE AND SCREEN (11/26/2021 14:37 EDT) ABO A 11/26/2021 15:30 EDT [facility] Rh Factor Positive 11/26/2021 15:30 EDT [facility] Antibody Screen Negative 11/26/2021 15:30 EDT [facility] Specimen Expires: 11/29/2021 @ 23:59 11/26/2021 15:30 EDT [facility] Blood VENOUS BLOOD / Unknown Venipuncture / Unknown 11/26/2021 14:37 EDT 11/26/2021 14:37 EDT us Anamika Wang MD BLOOD BANK TESTS Edited Re sult - Final Performing Organization Address [facility]/ZIP Co de Phone Number [facility] [address] [place] [address] * COVID-19 TEST [facility] PCR (11/23/2021 10:30 EDT) Swab BOTH ANTERIOR NARES / Unknown Swab / Unknown 11/23/2021 10:30 EDT 11/23/2021 10:37 EDT us Anamika Wang MD MICROBIOLOGY - GENERAL ORD ERABLES Final Result [facility] [address] [place] [address] * COVID-19 TESTING (11/23/2021 10:30 EDT) COVID-19 rt-PCR Result Negative Negative 11/23/2021 15:03 EDT [facility] Comment: This test has not been FDA cleared or approved. This test has been authorized by FDA under an EUA for use by authorized laboratories. This test has been authorized only for detection of nucleic acid from 2019-nCoV, not for any other viruses or pathogens. [...] history, and epidemiological information. Performed on the [employer] Fusion instrument Performing Lab [place] [facility] 11/23/2021 15:03 EDT [facility] Swab BOTH ANTERIOR NARES / Unknown Swab / Unknown 11/23/2021 10:30 EDT 11/23/2021 10:37 EDT us Anamika Wang MD MICROBIOLOGY - GENERAL ORD ERABLES Final Result [facility] [address] [place] [address] * TYPE AND SCREEN (11/23/2021 7:34 EDT) ABO A 11/23/2021 8:28 EDT [facility] Rh Factor Positive 11/23/2021 8:28 EDT [facility] Antibody Screen Negative 11/23/2021 8:28 EDT [facility] Specimen Expires: 11/26/2021 @ 23:59 11/23/2021 8:28 EDT [facility] Blood VENOUS BLOOD / Unknown Venipuncture / Unknown 11/23/2021 7:34 EDT 11/23/2021 7:44 EDT us Anamika Wang MD BLOOD BANK TESTS Edited Re sult - Final Performing Organization Address City/State/[facility] Co de Phone Number [facility] [address] [place] [address] * POC LD US UMBILICAL ARTERY DOPPLER (11/22/2021 13:07 EDT) Anatomical Region Laterality Modality Ultrasound 11/22/2021 12:0 1 EDT Narrative 11/25/2021 10:58 EDT Indication ======== FGR. Non-reassuring assessment. History ====== Previous Outcomes ?2 Para ?? 1 Pregnancies delivered at term (T) ??1 Pregnancies delivered (P) ??0 Abortions (A) ??0 Living children (L) ?1 ========= Number of fetuses: 1 Dating ====== LMP on: ?05/12/2021 GA by LMP ??27 w + 5 d MYCHAL by LMP : ? 02/16/2022 Previous Ultrasound on: ?08/10/2021 Type of prior assessment: ??CRL U/S measurement at prior assessment date ?? 56.3 mm GA by previous U/S 27 w + 1 d MYCHAL by previous Ultrasound: ?02/20/2022 Assigned: ??based on ultrasound (CRL), selected on 11/13/2021 Assigned GA ?27 w + 1 d Assigned MYCHAL: ??02/20/2022 General Evaluation Cardiac activity Present. FHR 140 bpm. movements: visualized. Presentation: cephalic Placenta: anterior Amniotic Fluid Assessment Amount of AF: normal MVP 6.6 cm. CHAS 11.9 cm. Q1 6.6 cm, Q2 3.5 cm, Q3 1.9 cm, Q4 0.0 cm Anatomy sex: male Doppler Arterial Umbilical A PS 35.24 cm/s ??10% Ebbing Umbilical A ?ED ?12.43 cm/s Umbilical A TAmax ??22.02 cm/s ??9% Ebbing Umbilical A MD 11.87 cm/s Umbilical A HR 144 bpm Rt MCA PS ??33.73 cm/s MoM ?0.95 Rt MCA ED ??5.92 cm/s Rt MCA TAmax ?? 14.65 cm/s ??28% Kiersten Rt MCA MD ??5.81 cm/s Rt MCA HR ??140 bpm Impression: ?Normal Doppler study Venous Ductus ge. S-wave 55.44 cm/s Ductus ge. D-wave 52.48 cm/s Ductus ge. A-wave 25.49 cm/s Ductus ge. TAmax ??44.22 cm/s Ductus ge. D/a ?2.06 Ductus ge. HR 204 bpm Growth Overview Exam date ??GA ??BPD (mm) ?HC (mm) AC (mm) FL (mm) HL (mm) EFW (g) 11/13/2021 ??25w 6d ??52.9 ?<1% 214.8 ?? 4% ??193.8 ?? 4% ??40.5 ?2% ??39.7 ?5% ??607 <1% Method ====== Voluson E10, Transabdominal ultrasound examination. View: Sufficient Impression ========= 37215 Limited obstetrical ultrasound This is a paiz gestation. The anatomy was not reviewed in detail. movement was noted. The amniotic fluid volume appears normal. 55723 Umbilical artery Doppler study Doppler waveforms of the umbilical artery are normal. 48196 Middle cerebral artery Doppler study Doppler waveforms of the middle cerebral artery are normal. The cerebro- placental index is normal at 28% (abnormal < 5%). Ductus Venosus waveforms are normal on today's study. Follow-up ======== Follow-up as clinically indicated. DATE OF SERVICE: /<OBR Procedure Note Rafy Stubbs MD - 11/25/2021 Indication ======== FGR. Non-reassuring assessment. History ====== Previous Outcomes 2 Para 1 Pregnancies delivered at term (T) 1 Pregnancies delivered (P) 0 Abortions (A) 0 Living children (L) 1 ========= Number of fetuses: 1 Dating ====== LMP on: 05/12/2021 GA by LMP 27 w + 5 d MYCHAL by LMP : 02/16/2022 Previous Ultrasound on: 08/10/2021 Type of prior assessment: CRL U/S measurement at prior assessment date 56.3 mm GA by previous U/S 27 w + 1 d MYCHAL by previous Ultrasound: 02/20/2022 Assigned: based on ultrasound (CRL), selected on 11/13/2021 Assigned GA 27 w + 1 d Assigned MYCHAL: 02/20/2022 General Evaluation Cardiac activity Present. FHR 140 bpm. movements: visualized.Presentation: cephalic Placenta: anterior Amniotic Fluid Assessment Amount of AF: normal MVP 6.6 cm. CHAS 11.9 cm. Q1 6.6 cm, Q2 3.5 cm, Q3 1.9 cm, Q4 0.0 cm Anatomy sex: male Doppler Arterial Umbilical A PS 35.24 cm/s 10% Ebbing Umbilical A ED 12.43 cm/s Umbilical A TAmax 22.02 cm/s 9% Ebbing Umbilical A MD 11.87 cm/s Umbilical A HR 144 bpm Rt MCA PS 33.73 cm/s MoM 0.95 Rt MCA ED 5.92 cm/s Rt MCA TAmax 14.65 cm/s 28% Kiersten Rt MCA MD 5.81 cm/s Rt MCA HR 140 bpm Impression: Normal Doppler study Venous Ductus ge. S-wave 55.44 cm/s Ductus ge. D-wave 52.48 cm/s Ductus ge. A-wave 25.49 cm/s Ductus ge. TAmax 44.22 cm/s Ductus ge. D/a 2.06 Ductus ge. HR 204 bpm Growth Overview Exam date GA BPD (mm) HC (mm) AC (mm) FL (mm) HL (mm) EFW (g) 11/13/2021 25w 6d 52.9 <1% 214.8 4% 193.8 4% 40.5 2% 39.75% 607 <1% Method ====== Voluson E10, Transabdominal ultrasound examination. View: Sufficient Impression ========= 28797 Limited obstetrical ultrasound This is a paiz gestation. The anatomy was not reviewed in detail. movement was noted. Theamniotic fluid volume appears normal. 64007 Umbilical artery Doppler study Doppler waveforms of the umbilical artery are normal. 77344 Middle cerebral artery Doppler study Doppler waveforms of the middle cerebral artery are normal. Thecerebro-placental index is normal at 28% (abnormal < 5%). Ductus Venosus waveforms are normal on today's study. Follow-up ======== Follow-up as clinically indicated. DATE OF SERVICE: ./.1/<OBR us Rafy Stubbs MD IMG US LD ORDERABLES Fin al Result * POC LD US LIMITED OB SCAN (11/22/2021 13:06 EDT) Anatomical Region Laterality Modality Ultrasound 11/22/2021 12:0 1 EDT Narrative 11/25/2021 10:58 EDT Indication ======== FGR. Non-reassuring assessment. History ====== Previous Outcomes ?2 Para ?? 1 Pregnancies delivered at term (T) ??1 Pregnancies delivered (P) ??0 Abortions (A) ??0 Living children (L) ?1 ========= Number of fetuses: 1 Dating ====== LMP on: ?05/12/2021 GA by LMP ??27 w + 5 d MYCHAL by LMP : ? 02/16/2022 Previous Ultrasound on: ?08/10/2021 Type of prior assessment: ??CRL U/S measurement at prior assessment date ?? 56.3 mm GA by previous U/S 27 w + 1 d MYCHAL by previous Ultrasound: ?02/20/2022 Assigned: ??based on ultrasound (CRL), selected on 11/13/2021 Assigned GA ?27 w + 1 d Assigned MYCHAL: ??02/20/2022 General Evaluation Cardiac activity Present. FHR 140 bpm. movements: visualized. Presentation: cephalic Placenta: anterior Amniotic Fluid Assessment Amount of AF: normal MVP 6.6 cm. CHAS 11.9 cm. Q1 6.6 cm, Q2 3.5 cm, Q3 1.9 cm, Q4 0.0 cm Anatomy sex: male Doppler Arterial Umbilical A PS 35.24 cm/s ??10% Ebbing Umbilical A ?ED ?12.43 cm/s Umbilical A TAmax ??22.02 cm/s ??9% Ebbing Umbilical A MD 11.87 cm/s Umbilical A HR 144 bpm Rt MCA PS ??33.73 cm/s MoM ?0.95 Rt MCA ED ??5.92 cm/s Rt MCA TAmax ?? 14.65 cm/s ??28% Kiersten Rt MCA MD ??5.81 cm/s Rt MCA HR ??140 bpm Impression: ?Normal Doppler study Venous Ductus ge. S-wave 55.44 cm/s Ductus ge. D-wave 52.48 cm/s Ductus ge. A-wave 25.49 cm/s Ductus ge. TAmax ??44.22 cm/s Ductus ge. D/a ?2.06 Ductus ge. HR 204 bpm Growth Overview Exam date ??GA ??BPD (mm) ?HC (mm) AC (mm) FL (mm) HL (mm) EFW (g) 11/13/2021 ??25w 6d ??52.9 ?<1% 214.8 ?? 4% ??193.8 ?? 4% ??40.5 ?2% ??39.7 ?5% ??607 <1% Method ====== Voluson E10, Transabdominal ultrasound examination. View: Sufficient Impression ========= 34934 Limited obstetrical ultrasound This is a paiz gestation. The anatomy was not reviewed in detail. movement was noted. The amniotic fluid volume appears normal. 40003 Umbilical artery Doppler study Doppler waveforms of the umbilical artery are normal. 56731 Middle cerebral artery Doppler study Doppler waveforms of the middle cerebral artery are normal. The cerebro- placental index is normal at 28% (abnormal < 5%). Ductus Venosus waveforms are normal on today's study. Follow-up ======== Follow-up as clinically indicated. DATE OF SERVICE: /<OBR Procedure Note Rafy Stubbs MD - 11/25/2021 Indication ======== FGR. Non-reassuring assessment. History ====== Previous Outcomes 2 Para 1 Pregnancies delivered at term (T) 1 Pregnancies delivered (P) 0 Abortions (A) 0 Living children (L) 1 ========= Number of fetuses: 1 Dating ====== LMP on: 05/12/2021 GA by LMP 27 w + 5 d MYCHAL by LMP : 02/16/2022 Previous Ultrasound on: 08/10/2021 Type of prior assessment: CRL U/S measurement at prior assessment date 56.3 mm GA by previous U/S 27 w + 1 d MYCHAL by previous Ultrasound: 02/20/2022 Assigned: based on ultrasound (CRL), selected on 11/13/2021 Assigned GA 27 w + 1 d Assigned MYCHAL: 02/20/2022 General Evaluation Cardiac activity Present. FHR 140 bpm. movements: visualized.Presentation: cephalic Placenta: anterior Amniotic Fluid Assessment Amount of AF: normal MVP 6.6 cm. CHAS 11.9 cm. Q1 6.6 cm, Q2 3.5 cm, Q3 1.9 cm, Q4 0.0 cm Anatomy sex: male Doppler Arterial Umbilical A PS 35.24 cm/s 10% Ebbing Umbilical A ED 12.43 cm/s Umbilical A TAmax 22.02 cm/s 9% Ebbing Umbilical A MD 11.87 cm/s Umbilical A HR 144 bpm Rt MCA PS 33.73 cm/s MoM 0.95 Rt MCA ED 5.92 cm/s Rt MCA TAmax 14.65 cm/s 28% Kiersten Rt MCA MD 5.81 cm/s Rt MCA HR 140 bpm Impression: Normal Doppler study Venous Ductus ge. S-wave 55.44 cm/s Ductus ge. D-wave 52.48 cm/s Ductus ge. A-wave 25.49 cm/s Ductus ge. TAmax 44.22 cm/s Ductus ge. D/a 2.06 Ductus ge. HR 204 bpm Growth Overview Exam date GA BPD (mm) HC (mm) AC (mm) FL (mm) HL (mm) EFW (g) 11/13/2021 25w 6d 52.9 <1% 214.8 4% 193.8 4% 40.5 2% 39.75% 607 <1% Method ====== Voluson E10, Transabdominal ultrasound examination. View: Sufficient Impression ========= 71222 Limited obstetrical ultrasound This is a paiz gestation. The anatomy was not reviewed in detail. movement was noted. Theamniotic fluid volume appears normal. 41262 Umbilical artery Doppler study Doppler waveforms of the umbilical artery are normal. 72419 Middle cerebral artery Doppler study Doppler waveforms of the middle cerebral artery are normal. Thecerebro-placental index is normal at 28% (abnormal < 5%). Ductus Venosus waveforms are normal on today's study. Follow-up ======== Follow-up as clinically indicated. DATE OF SERVICE: .7/.1/<OBR us Rafy Stubbs MD IMG LD ORDERABLES Fin al Result * COVID-19 TEST [facility] PCR (11/20/2021 11:08 EDT) Swab BOTH ANTERIOR NARES / Unknown Swab / Unknown 11/20/2021 11:08 EDT 11/20/2021 11:13 EDT us Anamika Wang MD MICROBIOLOGY - GENERAL ORD ERABLES Final Result [facility] [address] [place] [id number] * COVID-19 TESTING (11/20/2021 11:08 EDT) COVID-19 rt-PCR Result Negative Negative 11/20/2021 12:20 EDT [facility] Comment: This test has not been FDA cleared or approved. This test has been authorized by FDA under an EUA for use by authorized laboratories. This test has been authorized only for detection of nucleic acid from 2019-nCoV, not for any other viruses or pathogens. [...] history, and epidemiological information. Performed on the [employer] GeneXpert Instrument Performing Lab GeneXpert [facility] 11/20/2021 12:20 EDT [facility] Swab BOTH ANTERIOR NARES / Unknown Swab / Unknown 11/20/2021 11:08 EDT 11/20/2021 11:13 EDT Anamika Wang MD MICROBIOLOGY - GENERAL ORD ERABLES Final Result Performing Organization Address City/[facility]/ZIP Co de Phone Number [facility] [address] [place] [address] * TYPE AND SCREEN (11/20/2021 10:25 EDT) ABO A 11/20/2021 12:51 EDT [facility] Rh Factor Positive 11/20/2021 12:51 EDT [facility] Antibody Screen Negative 11/20/2021 12:51 EDT [facility] Specimen Expires: 11/23/2021 @ 23:59 11/20/2021 12:51 EDT [facility] Blood VENOUS BLOOD / Unknown Venipuncture / Unknown 11/20/2021 10:25 EDT 11/20/2021 11:19 EDT Anamika Wang MD BLOOD BANK TESTS Edited Re sult - Final [facility] [address] [place] [address] * (ABNORMAL) COMPLETE BLOOD COUNT (11/20/2021 10:25 EDT) WBC 6.91 4.00 - 12.40 K/cmm 11/20/2021 11:26 EDT [facility] RBC 3.89 3.86 - 5.04 M/cmm 11/20/2021 11:26 [facility] Hemoglobin 11.2(L) 11.6 - 15.2 gm/dL 11/20/2021 11:26 [facility] HCT 34.3(L) 34.9 - 44.4 % 11/20/2021 11:26 [facility] MCV 88 81 - 98 fl 11/20/2021 11:26 [facility] MCH 28.8 26.7 - 33.3 pg 11/20/2021 11:26 [facility] MCHC 32.7 32.1 - 35.9 gm/dL 11/20/2021 11:26 [facility] RDW-CV 13.6 <14.7 % 11/20/2021 11:26 [facility] RDW-SD 43.7 <50.4 fl 11/20/2021 11:26 [facility] PLT 295 141 - 377 K/cmm 11/20/2021 11:26 [facility] MPV 9.8 9.5 - 12.7 fl 11/20/2021 11:26 [facility] Blood VENOUS BLOOD / Unknown Venipuncture / Unknown 11/20/2021 10:25 EDT 11/20/2021 11:18 EDT us Anamika Wang MD HEMATOLOGY & PF4 ORDERABLE S Final Result [facility] [address] [place] [address] * GLUCOSE-1HR GESTATIONAL SCREEN (11/20/2021 10:24 EDT) Glucose-1hr Gest Scn 91 50 - 134 mg/dL 11/20/2021 11:51 EDT [facility] Glucose Dose 50 grams 11/20/2021 11:51 EDT [facility] Blood VENOUS BLOOD / Unknown Venipuncture / Unknown 11/20/2021 10:24 EDT 11/20/2021 11:18 EDT Anamika Wang MD CHEMISTRY & BLOOD GAS ORDE RABLES Final Result Performing Organization Address City/[facility]/ZIP Co de Phone Number [facility] [address] [place] [address] * COVID-19 TEST [facility] PCR (11/17/2021 12:21 EDT) Swab BOTH ANTERIOR NARES / Unknown Swab / Unknown 11/17/2021 12:21 EDT 11/17/2021 12:33 EDT Anamika Wang MD MICROBIOLOGY - GENERAL ORD ERABLES Final Result Performing Organization Address [facility]/ZIP Co de Phone Number [facility] [address] [place] [address] * COVID-19 TESTING (11/17/2021 12:21 EDT) COVID-19 rt-PCR Result Negative Negative 11/17/2021 17:18 EDT [facility] Comment: This test has not been FDA cleared or approved. This test has been authorized by FDA under an EUA for use by authorized laboratories. This test has been authorized only for detection of nucleic acid from 2019-nCoV, not for any other viruses or pathogens. [...] history, and epidemiological information. Performed on the [employer] Fusion instrument Performing Lab [place] [facility] 11/17/2021 17:18 EDT [facility] Swab BOTH ANTERIOR NARES / Unknown Swab / Unknown 11/17/2021 12:21 EDT 11/17/2021 12:33 EDT us Anamika Wang MD MICROBIOLOGY - GENERAL ORD ERABLES Final Result Performing Organization Address City/[facility] Co de Phone Number [facility] [address] [place] [address] * TYPE AND SCREEN (11/17/2021 11:19 EDT) ABO A 11/17/2021 12:13 EDT [facility] Rh Factor Positive 11/17/2021 12:13 EDT [facility] Antibody Screen Negative 11/17/2021 12:13 EDT [facility] Specimen Expires: 11/20/2021 @ 23:59 11/17/2021 12:13 EDT [facility] Blood VENOUS BLOOD / Unknown Venipuncture / Unknown 11/17/2021 11:19 EDT 11/17/2021 11:25 EDT Anamika Wang MD BLOOD BANK TESTS Edited Re sult - Final Performing Organization Address City/[facility] Co de Phone Number [facility] [address] [place] [address] * ECG REPORT - SCANNED (11/15/2021 15:19 EDT) 11/15/2021 15:1 9 EDT us Scan 2 Portfolio Accountant PROCEDURE/MINOR SURGICAL OR DERABLES Final Result * POC LD US MIDDLE CEREBRAL ARTERY DOPPLER (11/15/2021 13:34 EDT) Anatomical Region Laterality Modality Ultrasound 11/15/2021 12:5 3 EDT Narrative 11/15/2021 13:35 EDT Indication ======== wandering FHR baseline ========= Number of fetuses: 1 Dating ====== LMP on: ?05/12/2021 GA by LMP ??26 w + 5 d MYCHAL by LMP : ? 02/16/2022 Previous Ultrasound on: ?08/10/2021 Type of prior assessment: ??CRL U/S measurement at prior assessment date ?? 56.3 mm GA by previous U/S 26 w + 1 d MYCHAL by previous Ultrasound: ?02/20/2022 Assigned: ??based on ultrasound (CRL), selected on 11/13/2021 Assigned GA ?26 w + 1 d Assigned MYCHAL: ??02/20/2022 General Evaluation Cardiac activity Present. FHR 150 bpm. Presentation: breech Amniotic Fluid Assessment Amount of AF: normal Anatomy sex: male Doppler Arterial MCA PS 39.00 cm/s Left mid cerebral artery: ??normal Impression ========= 31680 Middle cerebral artery Doppler study Doppler waveforms of the middle cerebral artery are normal. The peak systolic velocity is normal at 39.0 cm/s (1.15 MoM). Follow-up ======== Follow-up as clinically indicated. DATE OF SERVICE: 11/15/2021 Procedure Note Sandie Gabriel MD - 11/15/2021 Indication ======== wandering FHR baseline ========= Number of fetuses: 1 Dating ====== LMP on: 05/12/2021 GA by LMP 26 w + 5 d MYCHAL by LMP : 02/16/2022 Previous Ultrasound on: 08/10/2021 Type of prior assessment: CRL U/S measurement at prior assessment date 56.3 mm GA by previous U/S 26 w + 1 d MYCHAL by previous Ultrasound: 02/20/2022 Assigned: based on ultrasound (CRL), selected on 11/13/2021 Assigned GA 26 w + 1 d Assigned MYCHAL: 02/20/2022 General Evaluation Cardiac activity Present. FHR 150 bpm. Presentation: breech Amniotic Fluid Assessment Amount of AF: normal Anatomy sex: male Doppler Arterial MCA PS 39.00 cm/s Left mid cerebral artery: normal Impression ========= 43818 Middle cerebral artery Doppler study Doppler waveforms of the middle cerebral artery are normal. The peaksystolic velocity is normal at 39.0 cm/s (1.15 MoM). Follow-up ======== Follow-up as clinically indicated. DATE OF SERVICE: 11/15/2021 us Anamika Wang MD [facility] ORDERABLES Final Result * HOLD BLUE TOP (11/15/2021 12:25 EDT) Hold Hold 11/15/2021 13:46 EDT [facility] Blood VENOUS BLOOD / Unknown Venipuncture / Unknown 11/15/2021 12:25 EDT 11/15/2021 12:32 EDT us Anamika Wang MD LAB INFO SERVICE AND SUPPO RT & PHONE RESULT Final Result [facility] [address] [place] [address] * TOXOPLASMA AB, IGM, S (11/15/2021 12:05 EDT) Toxoplasma AB, IgM S Negative Negative 11/16/2021 9:49 EDT [facility] [employer] Comment: No IgM antibodies to T. gondii detected. Results may be negative in patients with recent infection or who are significantly immunosuppressed. Test Performed by: [address] [address] Supply Room Clerk: Edy Méndez M.D. Ph.D.; CLIA# [id number] Blood VENOUS BLOOD / Unknown Venipuncture / Unknown 11/15/2021 12:05 EDT 11/15/2021 12:12 EDT Anamika Wang MD IMMUNOLOGY AND SEROLOGY OR DERABLES Final Result [facility] [address] [place] [address] * CMV IGG (11/15/2021 12:05 EDT) CMV Antibody, IgG Positive See Note 11/15/2021 13:48 EDT [facility] Comment:Presence of detectab le CMV IgG antibodies. Blood VENOUS BLOOD / Unknown Venipuncture / Unknown 11/15/2021 12:05 EDT 11/15/2021 12:11 EDT Anamika Wang MD CHEMISTRY & BLOOD GAS ORDE RABLES Final Result [facility] [address] [place] [address] * KLEIHAUER BLOOD ([facility],CV[facility]) (11/15/2021 12:05 EDT) Kleihauer Test Negative Negative 11/15/2021 15:58 EDT [facility] mL F/M HEMORRHAGE: 0.0 0.0 mL F/M HEMORRHAGE 11/15/2021 15:58 EDT [facility] Doses of RhIg (300 mcg intramuscular): 1 11/15/2021 15:58 EDT [facility] Comment:A recommended dose o f Rh immune globulin (RHIG, 300 mcg, IM) is reported for all samples. RHIG (anti-D antibody) is given to Rh-negative (D-negative) mothers who are with an Rh-positive (D-positive) fetus to help prevent development of a maternal immune response (anti-D) to the D antigen on red blood cells. RHIG can be given either before or after delivery. The volume of -maternal hemorrhage determines the dose of RHIG to be administered. Local hospital policies and procedures should be followed to determine if the recommended dose of RHIG is indicated. Blood VENOUS BLOOD / Unknown Venipuncture / Unknown 11/15/2021 12:05 EDT 11/15/2021 12:11 EDT us Anamika Wang MD HEMATOLOGY & PF4 ORDERABLE S Final Result [facility] [address] [place] [address] * EKG 12-LEAD (11/15/2021 7:52 EDT) 11/15/2021 7:52 EDT Narrative [facility] E[facility] - 11/15/2021 15:15 EDT ? [facility] ? Test Date: ?2021-11-15 Pat Name: ? DESAREA SALLS ?Department: ?? [facility]tr ? Room: ? M707 Gender: ? Female ? Retort Forker: ?? [id number] : ?1995 ? Requested By: VASQUEZ STEWART Order Number: [id number] ? Brittany WALLS: ?? AUSTIN HARRISON MD ? Measurements Intervals ?[place] ? Rate: ? 72 ? P: ?58 TN: ? 162 ?QRS: ?18 QRSD: ? 92 ? T: ?45 QT: ? 437 ? QTc: ?481 ? Interpretive Statements SINUS RHYTHM POSSIBLE RIGHT VENTRICULAR CONDUCTION DELAY Compared to ECG 09/14/2021 20:18:51 No significant changes I reviewed the tracing and have either agreed or edited the findings in this report. Electronically Signed On 11-15-2021 15:15:11 EDT by AUSTIN HARRISON MD. Procedure Note Austin Harrison MD - 11/15/2021 [facility] Test Date: 2021-11-15 Pat Name: KARIN DIXON Department: Birthing Ctr Room: M707 Gender: Female [place]ort Forker: [id number] : 1995 Requested By: VASQUEZ STEWART Order Number: [id number] Reading MD: AUSTIN HARRISON MD Measurements Intervals [place] Rate: 72 P: 58 TN: 162 QRS: 18 QRSD: 92 T: 45 QT: 437 QTc: 481 Interpretive Statements SINUS RHYTHM POSSIBLE RIGHT VENTRICULAR CONDUCTION DELAY Compared to ECG 09/14/2021 20:18:51 No significant changes I reviewed the tracing and have either agreed or edited the findings inthis report. Electronically Signed On 11-15-2021 15:15:11 EDT by AUSTIN OROZCO. us Skye Douglas MD CARDIAC ECG ORDERABLES Final Result [facility] * GROUP B STREP PCR (11/14/2021 15:11 EDT) Group B Strep PCR Negative Negative 11/15/2021 13:39 EDT [facility] Swab POOLED SPECIMEN FROM VAGINAL INTROITUS AND RECTAL SWAB / Unknown Swab / Unknown 11/14/2021 15:11 EDT 11/14/2021 16:12 EDT us Anamika Wang MD MICROBIOLOGY - GENERAL ORD ERABLES Final Result Performing Organization Address City/[facility]/ZIP Co de Phone Number [facility] [address] [place] [address] * PATIENT RE-TYPE (11/13/2021 17:24 EDT) ABO A 11/13/2021 17:40 EDT [facility] Rh Factor Positive 11/13/2021 17:40 EDT [facility] Blood VENOUS BLOOD / Unknown Venipuncture / Unknown 11/13/2021 17:24 EDT 11/13/2021 17:28 EDT us Anamika Wang MD BLOOD BANK TESTS Final Res ult [facility] [address] [place] [address] * POC LD US DETAILED 2ND TRIMESTER OB (11/13/2021 16:44 EDT) Anatomical Region Laterality Modality Ultrasound 11/13/2021 15:3 2 EDT Narrative 11/15/2021 13:36 EDT Indication ======== Non-reactive NST ========= Number of fetuses: 1 Dating ====== LMP on: ?05/12/2021 GA by LMP ??26 w + 3 d MYCHAL by LMP : ? 02/16/2022 Method of dating: ??based on ultrasound Previous Ultrasound on: ?08/10/2021 Type of prior assessment: ??CRL U/S measurement at prior assessment date ?? 56.3 mm GA by previous U/S 25 w + 6 d MYCHAL by previous Ultrasound: ?02/20/2022 Ultrasound examination on: 11/13/2021 GA by U/S based upon: ??AC, BPD, Femur, HC GA by U/S ??23 w + 2 d MYCHAL by U/S: ?03/10/2022 Assigned: ??based on ultrasound (CRL), selected on 11/13/2021 Assigned GA ?25 w + 6 d Assigned MYCHAL: ??02/20/2022 General Evaluation Cardiac activity Present. FHR 137 bpm. movements: visualized, visualized. Presentation: breech Placenta: anterior Umbilical cord: Cord vessels: 3 vessel cord, 3 vessel cord. Insertion site: placental insertion: normal, placental insertion: normal Amniotic fluid: Amount of AF: normal, normal. MVP 3.5 cm. CHAS 9.7 cm. Q1 3.5 cm, Q2 2.3 cm, Q3 2.8 cm, Q4 1.2 cm Biometry Standard BPD ?52.9 mm 22w 0d <1% Hadlock OFD ?80.0 mm 26w 0d 55% Maeve HC 214.8 mm ?23w 3d 4% [place] Cerebellum tr ??26.0 mm 24w 4d 19% Oh AC 193.8 mm ?24w 1d 4% Hadlock Femur ??40.5 mm 23w 2d 2% Maeve Humerus ?39.7 mm 24w 1d 5% Maeve HC / AC ?1.11 EFW ?607 g ?<1% Fountain EFW (lb) ?? 1 lb EFW (oz) ?? 5 oz EFW by: ?Hadlock ([id number]) Extended Tibia ??37.7 mm 24w 2d 9% Maeve Fibula 35.5 mm 23w 2d 4% Maeve Radius 32.8 mm 23w 3d 22% Maeve Ulna ?? 36.0 mm 24w 1d 3% Maeve [employer] Apprentice 3.6 mm CM 3.9 mm ?? 2% Nicolaides Head / Face / Neck Cephalic index 0.66 ? <1% Nicolaides Nasal bone: ?present Extremities / Bony Struc FL / BPD ?? 0.77 FL / HC ?0.19 FL / AC ?0.21 Other Structures FHR ?137 bpm Anatomy Cranium: ?? normal Lateral ventricles: ?normal Choroid plexus: ?normal Midline falx: ??normal Cavum septi pellucidi: normal Cerebellum: ?normal Cisterna magna: ?normal Head / Neck Parenchyma: ?normal Cerebellar lobes: ??normal Vermis: ?normal Neck: ??normal Nuchal fold: ?? normal Lips: ??normal Profile: ?? normal Nose: ??normal Face Nasal bone: ?present Maxilla: ?? normal Mandible: ??normal 4-chamber view: ?normal RVOT view: normal LVOT view: normal 3-vessel view: normal [id number] view: normal Heart / Thorax Aortic arch view: ??normal SVC: ?? normal IVC: ?? normal Rt lung: ?? normal Lt lung: ?? normal Diaphragm: normal Cord insertion: ?normal Stomach: ?? normal Bladder: ?? normal Genitals: ??normal Abdomen Abdom. wall: ?? normal Rt kidney: normal Lt kidney: normal Liver: normal Cervical spine: ?normal Thoracic spine: ?normal Lumbar spine: ??not examined Sacral spine: ??not examined Arms: ??normal Legs: ??normal Rt arm: ?normal Lt arm: ?normal Rt hand: ?? normal Lt hand: ?? normal Rt leg: ?normal Lt leg: ?normal Rt foot: ?? normal Rt foot: ?? in suboptimal views Lt foot: ?? normal Lt foot: ?? in suboptimal views Skeleton: ??normal sex: male Wants to know sex: ?? yes Aneuploidy Screening Age ?26 yrs Echogenic focus: ?? no Include: ?? intracardiac echogenic focus Include: ?? ventriculomegaly Include: ?? nuchal fold Include: ?? echogenic bowel Include: ?? mild hydronephrosis Ventriculomegaly: ??no Nuchal fold: ?? normal Echogenic bowel: ?? no Pyelectasis: ?? no Short femur: ?? no Include: ?? short humerus Include: ?? nasal bone Short humerus: no Nasal bone: ?present Display risk: ??Risk at time of screening Other: She has had normal results on a cell-free DNA in maternal serum test. Maternal Structures Uterus / Cervix Uterus: ?Appears normal Method ====== Transabdominal ultrasound examination, Voluson E10, Transabdominal ultrasound examination, Voluson E10. View: Sufficient Impression ========= [id number] Obstetrical ultrasound with and maternal evaluation, including detailed anatomic examination This is a paiz gestation. Biometry is lagging prior ultrasound dating. Anatomy appears normal as noted above; however, ultrasound cannot detect all anomalies. As per the SMFM guidelines, the following were evaluated and were normal unless noted above: the cerebellum (including lobes and vermis), facial profile, the chest (including examination for masses, effusion, integrity of both sides of the diaphragm and lung parenchyma), abdomen for ascites, 12-long bones with normal architecture/position of limbs, hands and feet, placental insertion site of the umbilical cord and placenta for masses. The amniotic fluid volume is normal. There is trunk and extremity movement noted. [id number] Umbilical artery Doppler study Doppler waveforms of the umbilical artery are normal. Ductus venosus Doppler study Doppler waveforms of the ductus venosus are normal. Follow-up ======== High intensity FGR-Recommend weekly umbilical artery Dopplers and CHAS with growth every 3 weeks adding weekly testing after 32 weeks and MCA Dopplers at 35 weeks. DATE OF SERVICE: 11/13/2021 Procedure Note Sandie Gabriel MD - 11/18/2021 Indication ======== Non-reactive NST ========= Number of fetuses: 1 Dating ====== LMP on: 05/12/2021 GA by LMP 26 w + 3 d MYCHAL by LMP : 02/16/2022 Method of dating: based on ultrasound Previous Ultrasound on: 08/10/2021 Type of prior assessment: CRL U/S measurement at prior assessment date 56.3 mm GA by previous U/S 25 w + 6 d MYCHAL by previous Ultrasound: 02/20/2022 Ultrasound examination on: 11/13/2021 GA by U/S based upon: AC, BPD, Femur, HC GA by U/S 23 w + 2 d MYCHAL by U/S: 03/10/2022 Assigned: based on ultrasound (CRL), selected on 11/13/2021 Assigned GA 25 w + 6 d Assigned MYCHAL: 02/20/2022 General Evaluation Cardiac activity Present. FHR 137 bpm. movements: visualized,visualized. Presentation: breech Placenta: anterior Umbilical cord: Cord vessels: 3 vessel cord, 3 vessel cord. Insertionsite: placental insertion: normal, placental insertion: normal Amniotic fluid: Amount of AF: normal, normal. MVP 3.5 cm. CHAS 9.7 cm. Q13.5 cm, Q2 2.3 cm, Q3 2.8 cm, Q4 1.2 cm Biometry Standard BPD 52.9 mm 22w 0d <1% Hadlock OFD 80.0 mm 26w 0d 55% Maeve HC 214.8 mm 23w 3d 4% [place] Cerebellum tr 26.0 mm 24w 4d 19% Oh AC 193.8 mm 24w 1d 4% Hadlock Femur 40.5 mm 23w 2d 2% Maeve Humerus 39.7 mm 24w 1d 5% Maeve HC / AC 1.11 EFW 607 g <1% Fountain EFW (lb) 1 lb EFW (oz) 5 oz EFW by: Hadlock ([id number]-FL) Extended Tibia 37.7 mm 24w 2d 9% Maeve Fibula 35.5 mm 23w 2d 4% Maeve Radius 32.8 mm 23w 3d 22% Maeve Ulna 36.0 mm 24w 1d 3% Maeve [employer] Apprentice 3.6 mm CM 3.9 mm 2% Nicolaides Head / Face / Neck Cephalic index 0.66 <1% Nicolaides Nasal bone: present Extremities / Bony Struc FL / BPD 0.77 FL / HC 0.19 FL / AC 0.21 Other Structures FHR 137 bpm Anatomy Cranium: normal Lateral ventricles: normal Choroid plexus: normal Midline falx: normal Cavum septi pellucidi: normal Cerebellum: normal Cisterna magna: normal Head / Neck Parenchyma: normal Cerebellar lobes: normal Vermis: normal Neck: normal Nuchal fold: normal Lips: normal Profile: normal Nose: normal Face Nasal bone: present Maxilla: normal Mandible: normal 4-chamber view: normal RVOT view: normal LVOT view: normal 3-vessel view: normal [id number] view: normal Heart / Thorax Aortic arch view: normal SVC: normal IVC: normal Rt lung: normal Lt lung: normal Diaphragm: normal Cord insertion: normal Stomach: normal Bladder: normal Genitals: normal Abdomen Abdom. wall: normal Rt kidney: normal Lt kidney: normal Liver: normal Cervical spine: normal Thoracic spine: normal Lumbar spine: not examined Sacral spine: not examined Arms: normal Legs: normal Rt arm: normal Lt arm: normal Rt hand: normal Lt hand: normal Rt leg: normal Lt leg: normal Rt foot: normal Rt foot: in suboptimal views Lt foot: normal Lt foot: in suboptimal views Skeleton: normal sex: male Wants to know sex: yes Aneuploidy Screening Age 26 yrs Echogenic focus: no Include: intracardiac echogenic focus Include: ventriculomegaly Include: nuchal fold Include: echogenic bowel Include: mild hydronephrosis Ventriculomegaly: no Nuchal fold: normal Echogenic bowel: no Pyelectasis: no Short femur: no Include: short humerus Include: nasal bone Short humerus: no Nasal bone: present Display risk: Risk at time of screening Other: She has had normal results on a cell-free DNA in maternalserum test. Maternal Structures Uterus / Cervix Uterus: Appears normal Method ====== Transabdominal ultrasound examination, Voluson E10, Transabdominalultrasound examination, Voluson E10. View: Sufficient Impression ========= [id number] Obstetrical ultrasound with and maternal evaluation, includingdetailed anatomic examination This is a paiz gestation. Biometry is lagging prior ultrasound dating. Anatomy appears normal asnoted above; however, ultrasound cannot detect all fetalanomalies. As per the SM guidelines, the following were evaluated and were normalunless noted above: the cerebellum (including lobes and vermis), facialprofile, the chest (including examination for masses, effusion, integrity of both sides ofthe diaphragm and lung parenchyma), abdomen for ascites, 12-long boneswith normal architecture/position of limbs, hands and feet, placental insertion siteof the umbilical cord and placenta for masses. The amniotic fluid volume is normal. There is trunk and extremitymovement noted. [id number] Umbilical artery Doppler study Doppler waveforms of the umbilical artery are normal. Ductus venosus Doppler study Doppler waveforms of the ductus venosus are normal. Follow-up ======== High intensity FGR-Recommend weekly umbilical artery Dopplers and CHAS withgrowth every 3 weeks adding weekly testing after 32 weeks andMCA Dopplers at 35 weeks. DATE OF SERVICE: 11/13/2021 us Rico Moe MD [facility] LD ORDERABLES Final Re sult * TYPE AND SCREEN (11/13/2021 15:38 EDT) ABO A 11/13/2021 16:22 T [facility] Rh Factor Positive 11/13/2021 16:22 EDT [facility] Antibody Screen Negative 11/13/2021 16:22 [facility] Specimen Expires: 11/16/2021 @ 23:59 11/13/2021 16:22 EDT [facility] Blood VENOUS BLOOD / Unknown Venipuncture / Unknown 11/13/2021 15:38 EDT 11/13/2021 15:40 EDT us Anamika Wang MD BLOOD BANK TESTS Edited Re sult - Final Performing Organization Address City/State/[facility] Co de Phone Number [facility] [address] [place] [address] documented in this encounter Visit Diagnoses Diagnosis Non-reassuring heart tones complicating , antepartum- Primary Abnormality in heart rate/rhythm, antepartum condition or complication labor in second trimester with delivery in second trimester, fetus 1 Supervision of high risk , antepartum Poor growth affecting management of mother in second trimester, single or unspecified fetus Non-reassuring heart tones complicating , antepartum Abnormality in heart rate/rhythm, antepartum condition or complication labor in second trimester without delivery Poor growth affecting management of mother in third trimester, single or unspecified fetus Adjustment reaction with anxiety and depression Adjustment disorder with mixed anxiety and depressed mood labor in third trimester without delivery Poor growth affecting management of mother in third trimester, not applicable or unspecified fetus documented in this encounter Admitting Diagnoses Diagnosis labor in second trimester with delivery in second trimester, fetus 1 documented in this encounter Administered Medications Inactive Administered Medications - up to 3 most recent administrations Medication Order MAR Action Action Date Dose Rate Site acetaminophen (TYLENOL) tablet 650 mg 650 mg, oral, EVERY 4 HOURS PRN, Starting on 11/15/21 at 1142, Until Stephanie 12/09/21 at 1333, Pain, Routine, Release Given 12/01/2021 9:25 EDT 650 mg Given 11/30/2021 23:03 EDT 650 mg Given 11/30/2021 16:30 EDT 650 mg betamethasone (CELESTONE SOLUSPAN) 6 mg/mL injection 12 mg 12 mg, intramuscular, EVERY 24 HOURS, 2 doses, First dose on 11/13/21 at 1515, Last dose on 11/14/21 at 1515, Routine Given 11/14/2021 16:43 EDT 12 mg Given 11/13/2021 16:34 EDT 12 mg Left Gluteus Medius/Ventrogluteal calcium carbonate (TUMS) 200 mg calcium (500 mg) per chewable tablet tablet,chewable 2 Tablet 2 Tablet, oral, 4 TIMES DAILY PRN, Starting on 11/15/21 at 1142, Until Stephanie 12/09/21 at 1333, Heartburn, Routine, Release diphenhydrAMINE (BENADRYL) 50 mg/mL injection 1 dose, Starting on 11/14/21 at 0722, Until 11/14/21 at 0731 diphenhydrAMINE (BENADRYL) capsule 25 mg 25 mg, oral, AT BEDTIME PRN, Starting on Mon11/16/21 at 0407, Until Stephanie 12/09/21 at 1333, Itching, Routine Given 12/05/2021 1:33 EDT 25 mg Given 11/30/2021 23:13 EDT 25 mg Given 11/29/2021 20:25 EDT 25 mg diphenhydrAMINE (BENADRYL) injection 12.5 mg 12.5 mg, intravenous, NOW X1, 1 dose, On 11/13/21 at 2315, Routine Given 11/13/2021 22:59 EDT 12.5 mg diphenhydrAMINE (BENADRYL) injection 12.5 mg 12.5 mg, intravenous, NOW X1, 1 dose, On 11/14/21 at 0300, Routine Given 11/14/2021 2:50 EDT 12.5 mg diphenhydrAMINE (BENADRYL) injection 25 mg 25 mg, intravenous, NOW X1, 1 dose, On 11/14/21 at 0745, STAT Given 11/14/2021 7:31 EDT 25 mg diphenhydrAMINE (BENADRYL) injection 25 mg 25 mg, intravenous, NOW X1, 1 dose, On 11/14/21 at 1515, STAT Given 11/14/2021 14:59 EDT 25 mg diphenhydrAMINE (BENADRYL) injection 25 mg 25 mg, intravenous, NOW X1, 1 dose, On 11/14/21 at 2215, Routine Given 11/15/2021 0:04 EDT 25 mg docusate sodium (COLACE) capsule 100 mg 100 mg, oral, 2 TIMES DAILY PRN, Starting on 11/15/21 at 1143, Until Stephanie 12/09/21 at 1333, Constipation, Routine, Release ferrous gluconate (FERGON) tablet 324 mg 324 mg, oral, DAILY WITH BREAKFAST, First dose on Mon11/16/21 at 0800, Until Discontinued, Routine Given 12/09/2021 8:20 EDT 324 mg Given 12/08/2021 8:25 EDT 324 mg Given 12/07/2021 9:02 EDT 324 mg glucose (GLUCOLA) oral solution for tolerance testing 50 g 50 g, oral, Once (Without Time Specified), 1 dose, Starting on 11/20/21 at 0700, Until 11/20/21 at 0855, Routine Given 11/20/2021 8:55 EDT 50 g heparin injection 5,000 Units 5,000 Units, subcutaneous, EVERY 12 HOURS, First dose on Mon11/17/21 at 0930, Until Discontinued, Routine lactated ringers (LR) infusion at 25 mL/hr, intravenous, CONTINUOUS, Starting on 11/13/21 at 1515, Until Mon11/15/21 at 1141, Routine New Bag 11/15/2021 5:53 EDT 50 mL/hr Rate Documented 11/14/2021 19:46 EDT 50 mL/hr Rate Change 11/14/2021 19:16 EDT 50 mL/hr magnesium sulfate in water 40 gram/1,000 mL (4 %) IVPB pre-mix 1 dose, Starting on Mon11/14/21 at 0752, Until Mon11/14/21 at 0823 magnesium sulfate in water 40 gram/1,000 mL (4 %) IVPB pre-mix 2 g/hr (50 mL/hr), intravenous, CONTINUOUS, Starting on 11/14/21 at 0845, Until 11/15/21 at 0822, Routine Rate Documented 11/14/2021 19:46 EDT 2 g/hr 50 mL/hr Rate Documented 11/14/2021 19:00 EDT 2 g/hr 50 mL/hr Rate Documented 11/14/2021 17:02 EDT 2 g/hr 50 mL/hr magnesium sulfate in water 40 gram/1,000 mL (4 %) IVPB pre-mix 2 g/hr (50 mL/hr), intravenous, CONTINUOUS, Starting on 11/15/21 at 0545, Until 11/15/21 at 1140, Routine Rate Documented 11/15/2021 11:00 EDT 2 g/hr 50 mL/hr New Bag 11/15/2021 6:26 EDT 2 g/hr 50 mL/hr magnesium sulfate IVPB 4 g 100 mL 4 g, intravenous, Administer over 20 Minutes, NOW X1, 1 dose, On [place] 11/14/21 at 0800, STAT Given 11/14/2021 7:55 EDT 4 g 300 mL/hr magnesium sulfate IVPB 4 g 100 mL 4 g, intravenous, Administer over 20 Minutes, NOW X1, 1 dose, On 11/15/21 at 0545, STAT Given 11/15/2021 6:04 EDT 4 g 300 mL/hr magnesium sulfate IVPB 1 dose, Starting on [place] 11/14/21 at 0752, Until [place] 11/14/21 at 0815 methadone (DOLOPHINE) concentrated solution 150 mg 150 mg, oral, DAILY, First dose on 11/13/21 at 1830, Until Discontinued, STAT Given 11/13/2021 18:47 EDT 150 mg methadone (DOLOPHINE) concentrated solution 80 mg 80 mg, oral, USER SPECIFIED (2 times per day), First dose (after last modification) on 11/14/21 at 1100, Until Discontinued, STAT Given 11/30/2021 11:01 EDT 80 mg Given 11/29/2021 18:55 EDT 80 mg Given 11/29/2021 11:13 EDT 80 mg methadone (DOLOPHINE) concentrated solution 80 mg 80 mg, oral, USER SPECIFIED (2 times per day), First dose (after last modification) on Mon11/30/21 at 1900, Until Discontinued, Routine Given 12/09/2021 8:18 EDT 80 mg Given 12/08/2021 15:58 EDT 80 mg Given 12/08/2021 8:25 EDT 80 mg methadone (DOLOPHINE) concentrated solution 80 mg 80 mg, oral, Once (Without Time Specified), 1 dose, Starting on Stephanie 12/09/21 at 1100, Until Stephanie 12/09/21 at 1121, Routine Given 12/09/2021 11:21 EDT 80 mg multivitamin vit-iron fumarate-FA (STUARTNATAL) 27 mg iron- 1 mg tablet 1 Tablet 1 Tablet, oral, DAILY, First dose on Mon11/15/21 at 1200, Until Discontinued, Routine, Release Given 12/09/2021 8:19 EDT 1 Tablet Given 12/08/2021 13:00 EDT 1 Tablet Given 12/07/2021 11:06 EDT 1 Tablet senna (SENOKOT) tablet 1 Tablet 1 Tablet, oral, DAILY, First dose on Mon11/15/21 at 1200, Until Discontinued, Routine, Release Given 12/04/2021 11:43 EDT 1 Tablet Given 11/24/2021 11:27 EDT 1 Tablet sodium chloride 0.9 % (flush) flush 5 mL 5 mL, intravenous, EVERY 8 HOURS, First dose on Mon11/17/21 at 0815, Until Discontinued, Routine Given 11/22/2021 1:25 EDT 5 mL Given 11/21/2021 17:20 EDT 5 mL Given 11/21/2021 10:10 EDT 5 mL documented in this encounter Active and Recently Administered Medications Times are shown in EDT. Scheduled Medication Order 12/07/2021 12/08/2021 12/09/2021 ferrous gluconate (FERGON) tablet 324 mg 324 mg, oral, DAILY WITH BREAKFAST, First dose on Mon11/16/21 at 0800, Until Discontinued, Routine 0902 (Given - Provider: Tammy Fay RN) 0825 (Given - Provider: Ana Kauffman RN) 0820 (Given - Provider: Lilian Garcia RN) heparin injection 5,000 Units 5,000 Units, subcutaneous, EVERY 12 HOURS, First dose on Mon11/17/21 at 0930, Until Discontinued, Routine 1106 (Not Given - Provider: Tammy Fay RN - Reason: Patient/family refused)2100 (Not Given - Provider: Natacha Little RN - Reason: Patient/family refused) 0900 (Not Given - Provider: Ana Kauffman RN - Reason: Patient/family refused)2100 (Not Given - Provider: Lazaro Torres RN - Reason: Patient/family refused) 0820 (Not Given - Provider: Lilian Garcia RN - Reason: Patient/family refused) methadone (DOLOPHINE) concentrated solution 80 mg 80 mg, oral, USER SPECIFIED (2 times per day), First dose (after last modification) on Mon11/30/21 at 1900, Until Discontinued, Routine 0902 (Given - Provider: Tammy Fay, RN)1554 (Given - Provider: Lazaro Torres, RN) 0825 (Given - Provider: Ana Kauffman, ALLEN)1558 (Given - Provider: Lazaro Torres RN) 0818 (Given - Provider: Lilian Garcia RN) methadone (DOLOPHINE) concentrated solution 80 mg (COMPLETED) 80 mg, oral, Once (Without Time Specified), 1 dose, Starting on Mon12/09/21 at 1100, Until Mon12/09/21 at 1121, Routine 1121 (Given - Provid er: Lilian Garcia RN) multivitamin vit-iron fumarate-FA (STUARTNATAL) 27 mg iron- 1 mg tablet 1 Tablet 1 Tablet, oral, DAILY, First dose on Mon11/15/21 at 1200, Until Discontinued, Routine, Release 1106 (Given - Provider: Tammy Fay, ALLEN) 1300 (Given - Provider: Ana Kauffman RN) 0819 (Given - Provider: Lilian Garcia RN)1100 (Canceled Entry - Provider: Batch Job User Admin - Comment: Automatically canceled at discontinue of medication order) senna (SENOKOT) tablet 1 Tablet 1 Tablet, oral, DAILY, First dose on Mon11/15/21 at 1200, Until Discontinued, Routine, Release 1106 (Not Given - Provider: Tammy Fay RN - Reason: Patient/family refused) 1300 (Not Given - Provider: Ana Kauffman, ALLEN - Reason: Patient/family refused) 1100 (Canceled Entry - Provider: Batch Job User Admin - Comment: Automatically canceled at discontinue of medication order) PRN Medication Order 12/07/2021 12/08/2021 12/09/2021 acetaminophen (TYLENOL) tablet 650 mg 650 mg, oral, EVERY 4 HOURS PRN, Starting on Mon11/15/21 at 1142, Until Mon12/09/21 at 1333, Pain, Routine, Release calcium carbonate (TUMS) 200 mg calcium (500 mg) per chewable tablet tablet,chewable 2 Tablet 2 Tablet, oral, 4 TIMES DAILY PRN, Starting on Mon11/15/21 at 1142, Until Mon12/09/21 at 1333, Heartburn, Routine, Release diphenhydrAMINE (BENADRYL) capsule 25 mg 25 mg, oral, AT BEDTIME PRN, Starting on Mon11/16/21 at 0407, Until Mon12/09/21 at 1333, Itching, Routine docusate sodium (COLACE) capsule 100 mg 100 mg, oral, 2 TIMES DAILY PRN, Starting on Mon11/15/21 at 1143, Until Mon12/09/21 at 1333, Constipation, Routine, Release documented in this encounter Orders Medications Ordered That Ellis ht Not Have Been Administered Count Last Ordered Date First Ordered Date glucose (GLUCOLA) oral solut ion for tolerance testing 50 g 1 11/18/2021 tetanus toxoid, reduced diph theria toxoid, acellular pertussis vaccine (BOOSTRIX) IM injection 0.5 mL 1 11/18/2021 heparin injection 5,000 Units 1 11/17/2021 calcium carbonate (TUMS) 200 mg calcium (500 mg) per chewable tablet tablet,chewable 2 Tablet 1 11/15/2021 docusate sodium (COLACE) capsule 100 mg 1 0 11/15/2021 calcium GLUconate 100 mg/mL (10%) injection 1,000 mg 2 11/14/2021 magnesium sulfate in water 4 0 gram/1,000 mL (4 %) IVPB pre-mix 2 11/14/2021 11/13/2021 methadone (DOLOPHINE) concen trated solution 150 mg 1 11/14/2021 methadone (DOLOPHINE) concen trated solution 80 mg 1 11/14/2021 lactated ringers BOLUS 500 mL 1 11/13/2021 lidocaine 1 % injection 20 mL 1 11/13/2021 magnesium sulfate IVPB 4 g 100 mL 1 022 miSOPROStol (CYTOTEC) tablet 200 mcg 09/2021 miSOPROStol (CYTOTEC) tablet 800 mcg 09/2021 oxytocin in lactated ringers 30 units/500 ml 1 11/13/2021 tranexamic acid (CYKLOKAPRON ) injection 1,000 mg 1 11/13/2021 Diet Count Last Ordered Date First Orde red Date DISCHARGE DIET 1 12/09/2021 Nursing Count Last Ordered Date First Orde red Date ACTIVITY INSTRUCTIONS 1 12/09/2021 BATHING INSTRUCTIONS 1 12/09/2021 IV Count Last Ordered Date First Orde red Date IV REQUEST 2 11/17/2021 11/13/2021 Admission Count Last Ordered Date First Orde red Date ADMIT TO INPATIENT 1 11/14/2021 Discharge Count Last Ordered Date First Orde red Date DISCHARGE PATIENT 1 12/09/2021 Legal Count Last Ordered Date First Orde red Date MISCELLANEOUS DISCHARGE INSTRUCTIONS 1 11/12 documented in this encounter Care Teams General Farm Hand Relationship Specialty Start Date End Date Martha Saavedra FNP [address] [place] [address] PCP - General 02/01/17 09/15/22 documented as of this encounter
--- OUTSIDE RECORDS SUMMARY | 2024-07-06 18:50 | XMS_ITS | Encounter Summary ---
Author Organization [facility] Address [address] [place] [address] Care Team Providers Care Sales Contract Administrator Name Role Phone Martha Saavedra Noe Harjeet [facility] Primary Care Provi devon Encounter Details Date Type Department Care Team (Latest Contact Info) Description 11/13/2021 Travel Social History Tobacco Use Types Packs/Day [...] Date Last Indicated Resolved Time R/O COVID-19 11/13/2021 11/13/2021 11/13/2021 10:4 5 EDT documented as of this encounter Care Teams Sales Contract Administrator Relationship Specialty Start Date End Date Martha Saavedra FNP [address] [place] [address] PCP - General 02/01/17 09/15/22 documented as of this encounter
--- OUTSIDE RECORDS SUMMARY | 2024-07-06 18:50 | XMS_ITS | Encounter Summary ---
Author Organization [facility] Address [address] [place] [address] Care Team Providers Care Director [employer] Name Role Phone Martha Saavedra Noe Cosby [facility] Primary Care Provi devon Reason for Visit * Reason Onset Date Comments Patient Outreach 10/29/2021 Encounter Details Date Type Department Care Team (Late st Contact Info) Description 10/29/2021 Telephone [facility] [address] [place], [place] [id number] Tammy Foreman [address] [place] [address] [address] [place] [address] Patient Outreach Social History Tobacco [...] * Telephone Encounter - Tammy Foreman - 10/29/2021 1524 EDT Polisher Dial called pt, no valentina cisneros for pt regarding procedure writer's continued availability for support; offered for pt to call procedure writer directly or call main [facility] number to [facility]. documented in this encounter Plan of Treatment Not on file documented as of this encounter Visit Diagnoses Not on filedocumented in this encounter Additional Health Concerns Infection Onset Date Last Indicated Resolved Time COVID-19 10/11/2021 10/11/2021 10/31/2021 22:1 5 EDT documented as of this encounter Care Teams Director Museum [employer] Relationship Specialty Start Date End Date Martha Saavedra FNP [address] [place] [address] PCP - General 02/01/17 09/15/22 documented as of this encounter
--- OUTSIDE RECORDS SUMMARY | 2024-07-06 18:50 | XMS_ITS | Encounter Summary ---
Author Organization [facility] Address [address] [place] [address] Care Team Providers Care Medical Science Liaison Name Role Phone Martha Saavedra Noe Cosby [facility] Primary Care Provi devon Reason for Visit * Reason Onset Date Comments Patient Outreach 11/01/2021 Encounter Details Date Type Department Care Team (Late st Contact Info) Description 11/01/2021 Telephone [facility] OBGYN [address] [place], [place] [id number] Tammy Foreman [address] [place] [address] [address] [place] [address] Patient Outreach Social History Tobacco [...] * Telephone Encounter - Tammy Foreman - 11/01/2021 1647 EDT Formal Wear Rental Clerk called pt, no ans, mailbox full, could not leave message re other supports/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 documented in this encounter Plan of Treatment Not on file documented as of this encounter Visit Diagnoses Not on filedocumented in this encounter Care Teams Medical Science Liaison Relationship Specialty Start Date End Date Martha Saavedra FNP [address] [place] [address],[address] [place] [address] PCP - General 02/01/17 09/15/22 documented as of this encounter
--- OUTSIDE RECORDS SUMMARY | 2024-07-06 18:50 | XMS_ITS | Encounter Summary ---
Author Organization [facility] Address [address] [place] [address] Care Team Providers Care Floral Design Teacher Name Role Phone Martha Saavedra Noe Harjeet [facility] Primary Care Provi devon Encounter Details Date Type Department Care Team (Latest Contact Info) Description 09/21/2021 Travel Social History Tobacco Use Types Packs/Day [...] on filedocumented in this encounter Care Teams Floral Design Teacher Relationship Specialty Start Date End Date Martha Saavedra FNP [address] [place] [address],[address] [place] [address] PCP - General 02/01/17 09/15/22 documented as of this encounter
--- OUTSIDE RECORDS SUMMARY | 2024-07-06 18:50 | XMS_ITS | Encounter Summary ---
Author Organization [facility] Address [address] [place] [address] Care Team Providers Care Machine Stamper Name Role Phone Martha Saavedra [facility] Primary Care Provi devon Reason for Visit * Reason Onset Date Comments Appointment Related 10/06/2021 Encounter Details Date Type Department Care Team (Late st Contact Info) Description 10/06/2021 Telephone [facility] - [facility] [address] [place], [place] [address] Shruthi Driscoll, ALLEN Appointment Related Social History Tobacco Use Types [...] Assessment Author No 09/14/2021 19:37 EDT Masoud Wiggins, ALLEN * Because of a physical, mental, [...] Telephone Encounter - Shruthi Driscoll RN - 10/06/2021 1337 EDT Austin Mao- This pt was here on 10/06 and needs to set up [facility] services for support and transportation issues. I could not find a space in your schedule to book her in a timely fashion so I told her you will call her. I hope this is ok with you . Thanks Shruthi documented in this encounter Plan of Treatment Not on file documented as of this encounter Visit Diagnoses Not on filedocumented in this encounter Care Teams Machine Stamper Relationship Specialty Start Date End Date Martha Saavedra FNP [address] [place] [address],[address] [place] [address] PCP - General 02/01/17 09/15/22 documented as of this encounter
--- OUTSIDE RECORDS SUMMARY | 2024-07-06 18:50 | XMS_ITS | Encounter Summary ---
Author Organization [facility] Address [address] [place] [address] Care Team Providers Care Button Spindler Name Role Phone Martha Saavedra Noe Harjeet [facility] Primary Care Provi devon Reason for Visit * Reason Comments Headache Nausea Encounter Details Date Type Department Care Team (Latest Contact Info) Description 11/13/2021 9:38 EDT - 11/13/2021 13:38 EDT Hospital Encounter [facility] - [facility] Labor & Delivery [address] [place], [place] [phone] Beverly Escalante MD [address] [facility], [address] [place] [address] Headache in , antepartum, second trimester (Primary Dx); Nausea and vomiting in ; Supervision of high risk in second trimester; Chronic hepatitis C during , antepartum (HCC-CMS) (HCC) Discharge Disposition: Short Term Hospital Social History Tobacco Use Types Packs/Day Years [...] Sign Reading Time Taken Comments Blood Pressure 115/73 11/13/2021 0948 EDT Pulse - - Temperature 36.7 ??C (98.1 ??F) 11/13/2021 0948 EDT Respiratory Rate 16 11/13/2021 0948 EDT Oxygen Saturation 100% 11/13/2021 0948 EDT Inhaled Oxygen Concentration - - Weight 57.1 kg (125 lb 12.8 oz) 11/13/2021 0948 EDT Height - - Body Mass Index 19.7 10/11/2021 2201 EDT documented in this encounter Functional Status [...] Disposition Code Departure Means Destination Comment s [facility] (Acute Care Facility) transferred to [place] [id number] at [facility] documented in this encounter Progress Notes * Beverly Escalante MD - 11/13/2021 1231 EDT History and Physical [facility] - Women and Children's Unit HPI: Karin Dixon is a 26 y.o. @ 25w6d by a 12 wk U/S who presented to [facility] this morning with a headache and dehydration. Patient reports she developed a migraine yesterday and by evening the pain was so uncomfortable she began vomiting repeatedly. She went to methadone clinic today and reported not feeling well but was given methadone to take anyway immediately and vomited within 5 minutes of taking her dose. Her boyfriends mother encouraged her to come here for evaluation. She reports that she has been having cravings and used heroin and possibly fentanyl a week ago. Shereports that she is highly motivated to be compliant since she had to give her daughter up for adoption 5 years ago and wants to keep her baby this time. Her prescriber is aware of her recent activity and cravings per her report and increased methadone from 140mg a day to 150mg a day this week. Patient Active Problem List Diagnosis Date Noted ??? COVID-19 affecting in second trimester 10/11/2021 Priority: Medium ??? Chronic hepatitis C virus infection (HCC-CMS) ([facility]) 08/10/2021 Priority: Medium Hep C positive - viral load 97K at 13 weeks GA Genotype unknown ??? Episodic mood disorder (HCC-CMS) ([facility]) 05/23/2018 Priority: Medium ??? Substance abuse ([facility]-CMS) ([facility]) 05/23/2018 Priority: Medium Hx of heroin use. [...] Growth & Anatomy US: [ ] [facility] [ ] Diagnostic Center Results: S=D, [...] and care [ ] PP contraceptive plan # 1 - Date: 06/06/16, Sex: None, Weight: 3260 g (7 lb 3 oz), GA: None, Delivery: Vaginal, Spontaneous, Apgar1: None, Apgar5: None, Living: Living, Comments: Adopted out, open adoption # 2 - Date: None, Sex: None, Weight: None, GA: None, Delivery: None, Apgar1: None, Apgar5: None, Living: None, Comments: None No past medical history on file. Past Surgical History: Procedure Laterality Date ??? WISDOM TOOTH EXTRACTION Medications Prior to Admission Medication Sig ??? doxylamine 25 mg tablet tablet Take 0.5 Tablets by mouth at bedtime. (Patient not taking: Reported on 10/21/2021) ??? methadone (DOLOPHINE) 10 mg tablet Take 140 mg by mouth daily. ??? vit,horacio 74/iron/folic ( VITAMIN 1+1 ORAL) Take by mouth. Current Facility-Administered Medications: ??? dextrose 5 % in lactated ringers infusion, 999 mL/hr, intravenous, CONTINUOUS, Beverly Escalante MD Allergies Allergen Reactions ??? Flagyl [Metronidazole] Social History Occupational History ??? Occupation: [employer]er: [employer] Tobacco Use ??? Smoking status: Never Smoker ??? Smokeless tobacco: Never Used Vaping Use ??? Vaping Use: Never used Substance and Sexual Activity ??? Alcohol use: Not Currently Comment: sporadic in past ??? Drug use: Yes Types: Methadone, Heroin Comment: current methadone for past heroin ??? Sexual activity: Yes Physical exam: BP 115/73 Temp 36.7 ??C (98.1 ??F) (Oral) Resp 16 Wt 57.1 kg (125 lb 12.8 oz) LMP 05/12/2021 (Approximate) SpO2 100% BMI 19.70 kg/m?? General: pleasant, NAD, resting Heart: Regular rate and rhythm Lungs: Clear to auscultation Abdomen: gravid, NT FHR: BL 125 Accelerations No, Decelerations Yes and Comment: occasional variables. -not repetitive,minimal variability Tocometer: flat Assessment and Plan: 26 y.o. at 25w6d being admitted for headache, dehydration and nonreassuring testing. Consulted with MFM and she needs further monitoring for this high risk , possible u/s for growth and need to be in a center where Nicu available if delivery required. Currently stable for transfer and do not think delivery required at this moment. Discussed with Dr. Sasha Tobar. FHT category two GBS unknown UDS pending Beverly Escalante MD * Anita Carlson RN - 11/13/2021 0957 EDT 0942- Pt arrived from ED. Has been having headache and vomiting since last night. unable to keep down food and fluids. Feels like her headache is related to dehydration, has had similar symptoms with her previous . Denies cramping or bleeding. Reports positive mvmt. Unable to void for urine sample at this time. 1053- difficulty tracing FHR due to gestational age, but likely prolonged deceleration noted. Unable to determine length of deceleration due to lack of continuous tracing. Reviewed by Sarah Armijo CNJose 1100- turned to left lateral. Pt dozing, reports improvement in headache with IV tylenol 1135- Dr Escalante in Department, strip reviewed. 1140- phlebotomy at bedside. 1155- Dr Escalante in bedside, strip reviewed. 1227- per Dr Escalante, pt turned to semi-fowlers position. Still unable to void at this time. 1256- transfer to [facility] accepted. 1301- [facility] called 1315- pt out of bed to bathroom, urine collected for urine dip and UDS. Dr escalante present, aware of FHR 1319- back to bed, left lateral. FHR difficult to trace, movement audible and palpable. 1336- EMS here, pt off EFM to transfer to [facility]. 1338- pt off unit via stretcher, accompanied by EMS 1345- report called to ALLEN Perez on [address] at [facility] documented in this encounter Plan of Treatment Not on file documented as of this encounter Procedures Procedure Name Priority Date/Time Associated Diagnosis Comments DRUG SCREEN 12, URINE STAT 11/13/2021 13:25 EDT TYPE AND SCREEN STAT 11/13/2021 11:47 EDT COMPLETE BLOOD COUNT AND DIFFERENTIAL STAT 11/13/2021 11:42 EDT FERRITIN Add-On 11/13/2021 11:42 EDT COMPREHENSIVE METABOLIC PANEL (CMP) STAT 11/13/2021 11:42 EDT documented in this encounter Results * (ABNORMAL) DRUG SCREEN 12, URINE (11/13/2021 13:25 EDT) Amphetamine Screen, Ur Negative Negative, Negative Screen 11/13/2021 14:08 EDT [facility] Barbiturates Screen, Ur Negative Negative, Negative Screen 11/13/2021 14:08 [facility] Benzodiazepine Screen, Ur Negative Negative, Negative Screen 11/13/2021 14:08 [facility] Cocaine Metabolites Screen, Ur Presumptive Positive, interpret with caution.(A) Negative, Negative Screen 11/13/2021 14:08 [facility] Methamphetamine Screen, Ur Negative Negative, Negative Screen 11/13/2021 14:08 [facility] Methadone Screen, Ur Presumptive Positive, interpret with caution.(A) Negative, Negative Screen 11/13/2021 14:08 [facility] Opiates Screen, Ur Negative Negative, Negative Screen 11/13/2021 14:08 [facility] Oxycodone Screen, Ur Negative Negative, Negative Screen 11/13/2021 14:08 [facility] Phencyclidine Screen, Ur Negative Negative Screen, Negative 11/13/2021 14:08 [facility] Cannabinoids Screen, Ur Negative Negative, Negative Screen 11/13/2021 14:08 [facility] Propoxyphene Screen, Ur Negative Negative, Negative Screen 11/13/2021 14:08 [facility] Tricyclics Screen, Ur Negative Negative Screen, Negative 11/13/2021 14:08 [facility] Urine URINE SPECIMEN COLLECTION, CLEAN CATCH / Unknown Urine Collect / Unknown 11/13/2021 13:25 EDT 11/13/2021 13:35 [facility] - 11/13/2021 14:08 [facility] Drug Class Cutoff Concentrations: Amphetamines - 500 ng/mL Barbiturates - 200 ng/mL Benzodiazepines - 150 ng/mL Cocaine - 150 ng/mL Methamphetamine - 500 ng/mL Methadone - 200 ng/mL Opiates - 100 ng/mL Oxycodone - 100 ng/mL Phencyclidine (PCP) - 25 ng/mL Tetrahydrocannabinol (THC) - 50 ng/mL Propoxyphene - 300 ng/mL Tricyclic Antidepressants - 300 ng/mL This is a screening assay only, intended for use in clinical monitoring or management of patients. False positive or false negative results can occur. ??If confirmation testing is needed, please place order as Add-On order in [facility]. ??Specimens are retained in the laboratory for 7 days. Danika Armijo DNP [facility] LAB UNIT COLLEC T ORDERABLES Final Result Performing Organization Address City/[facility]/ZIP Co de Phone Number [facility] [address] [place] [address] * TYPE AND SCREEN (11/13/2021 11:47 EDT) ABO A 11/13/2021 12:46 EDT [facility] Rh Factor Positive 11/13/2021 12:46 EDT [facility] BLOOD [facility] Antibody Screen Negative 11/13/2021 12:46 EDT [facility] Specimen Expires: 11/16/2021 @ 23:59 11/13/2021 12:46 EDT [facility] Blood VENOUS BLOOD / Unknown Venipuncture / Unknown 11/13/2021 11:47 EDT 11/13/2021 11:58 EDT Result [facility] Danika Armijo [facility] BLOOD BANK TESTS Ed ited Result - Final Performing Organization Address [facility] Co de Phone Number [facility] [address] [place], [place] [id number] * (ABNORMAL) FERRITIN (11/13/2021 11:42 EDT) Ferritin 8(L) 11 - 264 ng/mL 11/13/2021 13:35 EDT [facility] Blood VENOUS BLOOD / Unknown Venipuncture / Unknown 11/13/2021 11:42 EDT 11/13/2021 11:59 EDT Narrative [facility] - 11/13/2021 13:35 EDT The results of this assay can be falsely lowered due to the consumption of Biotin. Naselle Vandana Aleksander DNP CNM CHEMISTRY & BLOOD G ORDERABLES Final Result [facility] [address] [place] [address] * (ABNORMAL) COMPREHENSIVE METABOLIC PANEL (CMP) (11/13/2021 11:42 EDT) Sodium 134(L) 136 - 145 mmol/L 11/13/2021 12:24 [facility] Potassium 3.6 3.5 - 5.0 mmol/L 11/13/2021 12:24 [facility] Chloride 102 96 - 110 mmol/L 11/13/2021 12:24 [facility] CO2 Total 24 22 - 32 mmol/L 11/13/2021 12:24 [facility] Glucose 183(H) 70 - 100 mg/dL 11/13/2021 12:24 [facility] BUN 5(L) 10 - 26 mg/dL 11/13/2021 12:24 [facility] Creatinine 0.59 0.52 - 1.04 mg/dL 11/13/2021 12:24 [facility] eGFR 128 >60 mL/min/1.7 3m2 11/13/2021 12:24 [facility] Total Protein 5.4(L) 6.3 - 8.2 g/dL 11/13/2021 12:24 [facility] Albumin 2.5(L) 3.4 - 4.9 g/dL 11/13/2021 12:24 [facility] Alkaline Phosphatase 46 38 - 126 U/L 11/13/2021 12:24 [facility] AST 22 15 - 46 U/L 11/13/2021 12:24 [facility] ALT 18 <35 U/L 11/13/2021 12:24 [facility] Bilirubin, Total <0.2 <1.4 mg/dL 11/14/19 12:24 [facility] Calcium 7.6(L) 8.5 - 10.5 mg/dL 11/13/2021 12:24 [facility] Albumin/Globulin Ratio 0.9(L) 1.0 - 2.5 11/13/2021 12:24 [facility] Anion Gap 8 5 - 14 11/13/2021 12:24 [facility] Blood VENOUS BLOOD / Unknown Venipuncture / Unknown 11/13/2021 11:42 EDT 11/13/2021 11:59 EDT us Danika Armijo DNP CNM CHEMISTRY & BLOOD G ORDERABLES Final Result [facility] [address] [place] [address] * (ABNORMAL) COMPLETE BLOOD COUNT AND DIFFERENTIAL (11/13/2021 11:42 EDT) WBC 6.22 4.00 - 12.40 K/cmm 11/13/2021 12:06 [facility] RBC 3.17(L) 3.86 - 5.04 M/cmm 11/13/2021 12:06 [facility] Hemoglobin 9.4(L) 11.6 - 15.2 gm/dL 11/13/2021 12:06 [facility] HCT 28.4(L) 34.9 - 44.4 % 11/13/2021 12:06 [facility] MCV 90 81 - 98 fl 11/13/2021 12:06 [facility] MCH 29.7 26.7 - 33.3 pg 11/13/2021 12:06 [facility] MCHC 33.1 32.1 - 35.9 gm/dL 11/13/2021 12:06 [facility] RDW-CV 13.6 <14.7 % 11/13/2021 12:06 [facility] RDW-SD 44.4 <50.4 fl 11/13/2021 12:06 [facility] PLT 238 141 - 377 K/cmm 11/13/2021 12:06 [facility] MPV 9.6 9.5 - 12.7 fl 11/13/2021 12:06 [facility] % Neutrophils 69.7 % 11/13/2021 12:06 [facility] % Lymphocytes 24.3 % 11/13/2021 12:06 [facility] % Monocytes 5.1 % 11/13/2021 12:06 [facility] % Eosinophils 0.3 % 11/13/2021 12:06 [facility] % Basophils 0.3 % 11/13/2021 12:06 [facility] % Immature Grans 0.3 % 11/14/19 12:06 [facility] Absolute Neutrophils 4.33 2.20 - 8.85 K/cmm 11/13/2021 12:06 [facility] Absolute Lymphocytes 1.51 1.09 - 3.30 K/cmm 11/13/2021 12:06 [facility] Absolute Monocytes 0.32 0.10 - 0.80 K/cmm 11/13/2021 12:06 [facility] Absolute Eosinophils 0.02(L) 0.03 - 0.61 K/cmm 11/13/2021 12:06 [facility] ABS Basophils 0.02 0.01 - 0.11 K/cmm 11/13/2021 12:06 [facility] Absolute Immature Grans 0.02 0.00 - 0.06 K/cmm 11/13/2021 12:06 [facility] Type of Differential: Auto 11/13/2021 12:06 [facility] Blood VENOUS BLOOD / Unknown Venipuncture / Unknown 11/13/2021 11:42 EDT 11/13/2021 11:59 EDT us Danika Armijo DNP CNM PACKAGES & DNA PROB E ORDERABLES Final Result [facility] [address] [place] [id number] documented in this encounter Visit Diagnoses Diagnosis Headache in , antepartum, second trimester- Primary Nausea and vomiting in Unspecified vomiting of , unspecified as to episode of care Supervision of high risk in second trimester Unspecified high-risk Chronic hepatitis C during , antepartum (HCC-[facility]) documented in this encounter Administered Medications Inactive Administered Medications - up to 3 most recent administrations Medication Order MAR Action Action Date Dose Rate Site acetaminophen (OFIRMEV) IV solution 1,000 mg 1,000 mg, intravenous, NOW X1, 1 dose, On 11/13/21 at 1030, Routine Given 11/13/2021 10:54 EDT 1,000 mg dextrose 5 % in lactated ringers infusion at 999 mL/hr, intravenous, CONTINUOUS, Starting on 11/13/21 at 1030, Until 11/13/21 at 1229, Routine New Bag 11/13/2021 10:54 EDT 999 mL/hr dextrose 5 % in lactated ringers infusion 999 mL/hr, intravenous, CONTINUOUS, Starting on 11/13/21 at 1245, Until 11/13/21 at 1426, Routine New Bag 11/13/2021 12:30 EDT 999 mL/hr 999 mL/hr metoclopramide (REGLAN) injection 10 mg 10 mg, intravenous, Once (Time Specified), 1 dose, On 11/13/21 at 1230, Routine Given 11/13/2021 12:20 EDT 10 mg documented in this encounter Active and Recently Administered Medications Times are shown in EDT. Scheduled Medication Order 11/11/2021 11/12/2021 11/13/2021 acetaminophen (OFIRMEV) IV solution 1,000 mg (COMPLETED) 1,000 mg, intravenous, NOW X1, 1 dose, On 11/13/21 at 1030, Routine 1054 (Given - Provid er: Anita Carlson RN) metoclopramide (REGLAN) injection 10 mg (COMPLETED) 10 mg, intravenous, Once (Time Specified), 1 dose, On 11/13/21 at 1230, Routine 1220 (Given - Provid er: Anita Carlson RN) Continuous Medication Order 11/11/2021 11/12/2021 11/13/2021 dextrose 5 % in lactated ringers infusion (CANCELED) at 999 mL/hr, intravenous, CONTINUOUS, Starting on 11/13/21 at 1030, Until 11/13/21 at 1229, Routine 1054 (New Bag - Prov ider: Anita Carlson RN) dextrose 5 % in lactated ringers infusion 999 mL/hr, intravenous, CONTINUOUS, Starting on 11/13/21 at 1245, Until 11/13/21 at 1426, Routine 1230 (Dre Bag - Prov ider: Anita Carlson RN) documented in this encounter Orders Transfer Count Last Ordered Date First Orde red Date CONSULT RTC (TRANSFER/CONSUL T TO OTHER FACILITY) 1 11/13/2021 documented in this encounter Additional Health Concerns Infection Onset Date Last Indicated Resolved Time R/O COVID-19 11/13/2021 11/13/2021 11/13/2021 10:4 5 EDT documented as of this encounter Care Teams Button Spindler Relationship Specialty Start Date End Date Martha Saavedra FNP [address] [place] [address],[address] [place] [address] PCP - General 02/01/17 09/15/22 documented as of this encounter
--- OUTSIDE RECORDS SUMMARY | 2024-07-06 18:50 | XMS_ITS | Encounter Summary ---
Author Organization [facility] Address [address] [place] [address] Care Team Providers Care Military Source Operations Specialist Name Role Phone Martha Saavedra Noe Harjeet [facility] Primary Care Provi devon Reason for Visit * Reason Comments Routine Visit Encounter Details Date Type Department Care Team (Late st Contact Info) Description 10/06/2021 11:00 EDT Nurse Only [facility] OBGYN [address], [place] [address] Nurse, [facility] Chronic hepatitis C without hepatic coma (HCC-CMS) (HCC); Substance abuse (HCC-CMS) (HCC); Supervision of high risk , antepartum Social History Tobacco Use Types Packs/Day Years [...] 11:55 EDT documented as of this encounter Last Filed Vital Signs Vital Sign Reading Time Taken Comments Blood Pressure 108/64 10/06/2021 1154 EDT Pulse - - Temperature - - Respiratory Rate - - Oxygen Saturation - - Inhaled Oxygen Concentration - - Weight 54.7 kg (120 lb 9.6 oz) 10/06/2021 1154 E DT Height 168.9 cm (5' 6.5) 10/06/2021 1154 EDT Body Mass Index 19.18 10/06/2021 1154 EDT documented in this encounter Functional Status [...] Progress Notes * Shruthi Driscoll RN - 10/06/2021 1100 EDT Pt came for RN televisit at 20 w after US. Pt has appt with CG on 10/15 for telemed. and OV on 10/20. This bond writer to get in touch with [facility] to call pt to help setup Research Test Engine Operator project. No other questions or concerns. Good movement and no unusual vaginal discharge or bleeding. documented in this encounter Miscellaneous Notes * Addendum Note - Shruthi Driscoll RN - 10/06/2021 1100 EDTAddended by: SHRUTHI DRISCOLL on: 10/06/2021 13:36 Modules accepted: Level of Service documented in this encounter Plan of Treatment Not on file documented as of this encounter Visit Diagnoses Diagnosis Chronic hepatitis C without hepatic coma (HCC-CMS) Chronic hepatitis C without mention of hepatic coma Substance abuse (HCC-CMS) Other, mixed, or unspecified nondependent drug abuse, unspecified Supervision of high risk , antepartum documented in this encounter Care Teams Military Source Operations Specialist Relationship Specialty Start Date End Date Martha Saavedra FNP [address] [facility],[address] [place] [address] PCP - General 02/01/17 09/15/22 documented as of this encounter
--- OUTSIDE RECORDS SUMMARY | 2024-07-06 18:50 | XMS_ITS | Encounter Summary ---
Author Organization [facility] Address [address] [place] [address] Care Team Providers Care Kapok And Cotton Machine Operator Name Role Phone Martha Saavedra Noe Harjeet [facility] Primary Care Provi devon Reason for Visit * Reason Onset Date Comments Results 10/11/2021 21 wks - needs f /u US in a couple of weeks for anatomy not well seen Encounter Details Date Type Department Care Team (Late st Contact Info) Description 10/11/2021 Telephone [facility] OBGYN [address] [place] [address] Dona Casper, HUYEN CN [address] [facility], [address] [place] [address] Results (21 wks - needs f/u US in a couple of weeks for anatomy not well seen) Social History Tobacco Use Types Packs/Day Years [...] Encounter - Shruthi Driscoll RN - 10/11/2021 1348 EDT Pt was made aware of her US results and the need to keep telemed appointment with CG. Pt f/u booked for OB f/u US in DI on 10/21 at 10:15 and then to see CG for AP visit at 11:00 or so. Pt agreed and understood. * Telephone Encounter - Dona Casper APRN - 10/11/2021 0820 EDT Tried to call Karin but her mailbox is full. If can reach her: Can you let her know that the US was normal! Normal growth of baby, normal fluid around the baby. BUT they didn't see everything needed to complete the anatomy scan. Next step is another US in 2 weeks. Any chance you can help her to schedule this? She has some transportation challenges, FYI and is on[facility] with [facility]. Let's have her keep the telemed with Sarah later this week - to check in and discuss the US more fully. AND Looks like Karin has a f/u appt with Sarah Armijo in the office on 10/20. She will need f/u US for anatomy not well seen on her recent anatomy scan on the same day as that visit 10/20. Any chance we can reserve an US for her prior to appt with Sarah? Maybe adjust the appt with Sarah branchat she has the US prior. Waterproof if she sees Sarah Armijo please. Thanks so much! documented in this encounter Plan of Treatment [...] 29.5 ?7% ??28.7 ?20% 330 Technique ======== [facility] [id number]. View: Transabdominal without doppler. Impression ========= [id number] Follow-up obstetrical ultrasound This is a paiz [...] 59% 29.5 7% 28.720% 330 Technique ======== [facility] [id number]. View: Transabdominal without doppler. Impression ========= [id number] Follow-up obstetrical ultrasound This is a paiz gestation. The LVOT, 4-chamber view, left hand and LVOT are seen and appear normal.The lips are not adequately imaged. Except where noted above, the anatomy was not reviewed in detail asthis is a follow-up study and the anatomy was previously assessed. Normal fluid and movement are noted. Follow-up ======== Follow-up as clinically indicated. us Dona Casper NP CNM IMG US OB ORDER SWAPNIL Final Result documented in this encounter Visit Diagnoses Diagnosis Supervision of high risk , antepartum- Primary 21 weeks gestation of state, incidental Supervision of high risk , antepartum 21 weeks gestation of state, incidental documented in this encounter Care Teams Kapok And Cotton Machine Operator Relationship Specialty Start Date End Date Martha Saavedra FNP [address] [facility] [place] [address] PCP - General 02/01/17 09/15/22 documented as of this encounter
--- OUTSIDE RECORDS SUMMARY | 2024-07-06 18:51 | XMS_ITS | Encounter Summary ---
Author Organization [facility] Address [address] [place] [address] Care Team Providers Care Instrumentation Designer Name Role Phone Martha Saavedra [facility] Primary Care Provi devon Encounter Details Date Type Department Care Team (Late st Contact Info) Description 06/27/2017 Results Only [facility] [phone] Bobbi Mai APRN [address] [place] [address] Social History Tobacco Use Types Packs/Day Years Used Date Smoking Tobacco: Never Assessed Comments Unknown Sex and Gender Information Value Date Recorded Sex Assigned at Not on file Legal Sex Female 14:50 EDT Gender Identity Female 07/06/2021 12:52 EST Sexual Orientation Straight 02/11/2022 2: 46 EDT documented as of this encounter Plan of Treatment Not on file documented as of this encounter Procedures Procedure Name Priority Date/Time Associated Diagnosis Comments UA CHEMICAL ONLY Routine 06/27/2017 13:5 0 EST URINE CULTURE IF POSITIVE Routine 06/27/2017 13:50 EST CHLAMYDIA/N. GONORRHOEAE AMPLIFIED RNA, URINE Routine 06/27/2017 13:30 EST documented in this encounter Results * URINE CULTURE IF UA POSITIVE - NON POCT URINALYSIS ONLY (06/27/2017 13:50 EST) Culture if Indicated Culture not indicated by urinalysis results. 06/27/2017 21:42 [facility] TOPOGRAPHY UNKNOWN / Unknown 06/27/2017 13:50 EST 06/27/2017 21:23 EST us Bobbi SalazarAddy GARNERN MICROBIOLOGY - GENERAL ORDERA BLES Final Result [facility] [address] [place] [address] * UA CHEMICAL (DIPSTICK ONLY) (06/27/2017 13:50 EST) Color, UA Colorless 06/27/2017 21:42 [facility] Clarity, UA Clear 06/27/2017 21:42 [facility] Glucose, UA Neg Neg 06/27/2017 21:42 [facility] Bilirubin, UA Neg Neg 06/27/2017 21:42 [facility] Ketones, UA Neg Neg 06/27/2017 21:42 [facility] Refractometer SG,Urine 1.001 1.001 - 1.035 06/27/2017 21:42 [facility] Blood, UA Neg Neg 06/27/2017 21:42 [facility] pH, UA 6.5 4.6 - 8.0 06/27/2017 21:42 [facility] Protein, UA Neg Neg 06/27/2017 21:42 [facility] Urobilinogen, UA Normal Normal E.U./dl 06/27/2017 21:42 [facility] Nitrite, UA Neg Neg 06/27/2017 21:42 [facility] Leuk Esterase Neg Neg 06/27/2017 21:42 [facility] UA Method Used 06/27/2017 21:25 [facility] Comment: Testing performed using ? AU-4050. URINE / Unknown 06/27/2017 1 3:50 EST 06/27/2017 21:23 EST Bobbi Mai LIGHTER CAPTAIN URINALYSIS ORDERABLES Final R esult Performing Organization Address [facility]/ZIP Co de Phone Number [facility] [address] [place] [address] * CHLAMYDIA/N. GONORRHOEAE AMPLIFIED RNA, URINE (06/27/2017 13:30 EST) Chlamydia Result Negative 06/28/19 18 11:39 EST [facility] Comment: This test was developed and its performance characteristics determined by [facility]. It has not been cleared or approved by the US Food and Drug Administration. FDA does not require this test to go through premarket FDA review. This test is used for clinical purposes. It should not be regarded as investigational or for research. This laboratory is certified under the Clinical Laboratory Improvement Amendments (CLIA) as qualified to perform high complexity clinical laboratory testing. A first catch urine specimen is acceptable for detection of Gonorrhea and Chlamydia, but might detect up to 10% fewer infections when compared with vaginal and endocervical swab samples. GC Result Negative 06/28/2017 11:39 EST [facility] Comment: This test was developed and its performance characteristics determined by [facility]. It has not been cleared or approved by the US Food and Drug Administration. FDA does not require this test to go through premarket FDA review. This test is used for clinical purposes. It should not be regarded as investigational or for research. This laboratory is certified under the Clinical Laboratory Improvement Amendments (CLIA) as qualified to perform high complexity clinical laboratory testing. A first catch urine specimen is acceptable for detection of Gonorrhea and Chlamydia, but might detect up to 10% fewer infections when compared with vaginal and endocervical swab samples. URINE / Unknown 06/27/2017 1 3:30 EST 06/27/2017 21:56 EST Bobbi Mai APRN MICROBIOLOGY - GENERAL ORDERA BLES Final Result Performing Organization Address City/[facility]/ZIP Co de Phone Number [facility] [address] [place] [address] documented in this encounter Visit Diagnoses Not on filedocumented in this encounter Care Teams Instrumentation Designer Relationship Specialty Start Date End Date Martha Saavedra FNP [address] [facility],[address] [place] [address] PCP - General 02/01/17 09/15/22 documented as of this encounter
--- OUTSIDE RECORDS SUMMARY | 2024-07-06 18:51 | XMS_ITS | Encounter Summary ---
Author Organization [facility] Address [address] [place] [address] Care Team Providers Care Manager Women Name Role Phone Martha Saavedra [facility] Primary Care Provi devon Reason for Visit * Reason Onset Date Comments Nausea 08/24/2021 DUE TO PREG Encounter Details Date Type Department Care Team (Late st Contact Info) Description 08/24/2021 Telephone [facility] OBGYN [address] [place] [address] Beverly Escalante MD [address] [facility], [address] [place] [address] Nausea (DUE TO PREG) Social History Tobacco Use Types Packs/Day Years [...] as of this encounter Functional Status * Because of a physical, mental, [...] Telephone Encounter - Misti Baxter RN - 08/30/2021 1033 EDT Pt has not called back; TE closed * Telephone Encounter - Bettina Veloz RN - 08/24/2021 1153 EDT Left message for pt to call. * Telephone Encounter - Kelly Love - 08/24/2021 1140 EDT Pt states she missed work last night due to her sickness from . Pt would like a work note so she does not lose her job. Pt scheduled tonight to work, would like to have note to take to employer. documented in this encounter Plan of Treatment Not on file documented as of this encounter Visit Diagnoses Not on filedocumented in this encounter Care Teams Manager Women Relationship Specialty Start Date End Date Martha Saavedra FNP [address] [place] [address],[address] [place] [address] PCP - General 02/01/17 09/15/22 documented as of this encounter
--- OUTSIDE RECORDS SUMMARY | 2024-07-06 18:51 | XMS_ITS | Encounter Summary ---
Author Organization [facility] Address [address] [place] [address] Care Team Providers Care Flake Drier Name Role Phone Martha Saavedra Noe Harjeet [facility] Primary Care Provi devon Reason for Visit * Reason Onset Date Comments 07/26/2021 gender Encounter Details Date Type Department Care Team (Late st Contact Info) Description 07/26/2021 Telephone [facility] [place] [address] [place] [address] Dona Casper NP CN [address] [facility], [address] [place] [address] (gender) Social History Tobacco Use Types Packs/Day Years Used Date Smoking Tobacco: Never Assessed Interpersonal Safety Answer Date Record ed Physically Hurt Never 01/13/2020 Verbally Threaten Not on file 01/13/2020 Comments Unknown Sex and Gender Information Value Date Recorded Sex Assigned at Not on file Legal Sex Female 14:50 EDT Gender Identity Female 07/06/2021 12:52 EST Sexual Orientation Straight 02/11/2022 2: 46 EDT documented as of this encounter Miscellaneous Notes * Telephone Encounter - Misti Baxter RN - 07/26/2021 1211 EST Spoke with pt; noted not scheduled for TM visit - scheduled that. Answered questions about what to expect at IVAP. * Telephone Encounter - Shruthi Martin - 07/26/2021 1107 EST IVAP appt on 08/10 and she thinks she'll be 12 weeks, wants to know the gender, when can she get those labs done? documented in this encounter Plan of Treatment Not on file documented as of this encounter Visit Diagnoses Not on filedocumented in this encounter Care Teams Flake Drier Relationship Specialty Start Date End Date Martha Saavedra FNP [address] [facility],[address] [place] [address] PCP - General 02/01/17 09/15/22 documented as of this encounter
--- OUTSIDE RECORDS SUMMARY | 2024-07-06 18:51 | XMS_ITS | Encounter Summary ---
Author Organization [facility] Address [address] [place] [address] Care Team Providers Care Lab Nurse Name Role Phone Martha Saavedra Noe Harjeet [facility] Primary Care Provi devon Encounter Details Date Type Department Care Team (Latest Contact Info) Description 09/14/2021 Travel Social History Tobacco Use Types Packs/Day [...] suspected to have Coronavirus/COVID-19? No / Unsure 09/14/2021 19:41 EDT documented as of this encounter Functional [...] on filedocumented in this encounter Care Teams Lab Nurse Relationship Specialty Start Date End Date Martha Saavedra FNP [address] [place] [address],[address] [place] [address] PCP - General 02/01/17 09/15/22 documented as of this encounter
--- OUTSIDE RECORDS SUMMARY | 2024-07-06 18:51 | XMS_ITS | Encounter Summary ---
Author Organization [facility] Address [address] [place] [address] Care Team Providers Care Oliving Machine Operator Name Role Phone Martha Saavedra Noe Harjeet [facility] Primary Care Provi devon None, Provider Primary Care Provider Trevon Billingsley MD Primary Care Provider Eliza Rain MD Unavailable [phone] Dona Casper [facility] Unavailable Encounter Details Date Type Department Care Team (Late st Contact Info) Description 11/10/2020 Lab Requisition [facility] Pathology & Laboratory Medicine - [facility] [address] [place], [place] [address] Outr Resulting Lab, Provider Social History Tobacco Use Types Packs/Day Years [...] Procedure Name Priority Date/Time Associated Diagnosis Comments HEPATITIS B CORE ANTIBODY (TOTAL) Routine 11/10/2020 15:53 EDT documented in this encounter Results * HEPATITIS B CORE ANTIBODY (TOTAL) (11/10/2020 15:53 EDT) Hepatitis B Core Ab, Total Negative Negative 11/11/2020 10:38 EDT [facility] Blood VENOUS BLOOD / Unknown 11/10/2020 15:53 EDT 11/10/2020 21:25 EDT us Provider Outr Resulting Lab CHEMISTRY & BLOOD GA S ORDERABLES Final Result [facility] [address] [place] [address] documented in this encounter Visit Diagnoses Not on filedocumented in this encounter Additional Health Concerns Infection Onset Date Last Indicated Resolved Time R/O COVID-19 10/11/2021 10/11/2021 10/16/2021 22:1 7 EDT COVID-19 10/11/2021 10/11/2021 10/31/2021 22:1 5 EDT R/O COVID-19 11/13/2021 11/13/2021 11/13/2021 10:4 5 EDT documented as of this encounter Care Teams Oliving Machine Operator Relationship Specialty Start Date End Date Martha Saavedra FNP [address] [place], [place] [address] [place] [address] PCP - General 02/01/17 09/15/22 None, Provider PCP - General 09/16/22 05/23/23 Trevon Boyd MD [address] [place] [address] [address] [place] [address] PCP - General Family Medicine - Primary Care 05/24/23 Eliza Rain MD [address] [place] [address] [address] [place] [id number] Infectious Disease 05/24/23 Dona Casper NP CNM [address] [place] [address], [address] [place] [address] Fire Lieutenant [employer] 05/24/23 documented as of this encounter
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
--- OUTSIDE RECORDS SUMMARY | 2024-07-06 18:51 | XMS_ITS | Encounter Summary ---
Author Organization [facility] Address [address] [place] [address] Care Team Providers Care Rein[employer] Workers Name Role Phone Martha Saavedra Noe Harjeet [facility] Primary Care Provi devon Reason for Visit * Reason Comments Dizziness Pt who is 18 weeks p regnant reports left pedal edema for 2 days and started feeling dizzy this AM. Has not attempted to contact OBGYN. Encounter Details Date Type Department Care Team (Late st Contact Info) Description 09/14/2021 19:42 EDT - 09/14/2021 22:54 EDT Emergency [facility] Emergency Department [address] [place] [id number] Bonilla Talavera MD [address] [place] [phone] Swelling of lower extremity during in second trimester (Primary Dx) Discharge Disposition: [...] 19:41 EDT documented as of this encounter Last Filed Vital Signs Vital Sign Reading Time Taken Comments Blood Pressure 94/55 09/14/20212142 EDT Pulse 84 09/14/20212142 EDT Temperature 37 ??C (98.6 ??F) 09/14/20212142 EDT Respiratory Rate 16 09/14/20212142 EDT Oxygen Saturation 100% 09/14/20212142 EDT Inhaled Oxygen Concentration - - Weight 53.1 kg (117 lb) 09/14/20211938 EDT Height 170.2 cm (5' 7) 09/14/2021 193 EDT Body Mass Index 18.32 09/14/20211938 EDT documented in this encounter Functional Status [...] * Discharge Instructions* Bonilla Talavera MD - 09/14/2021 22:32 EDT You were seen in the emergency department today for dizziness, swelling in your legs. There was no evidence of any fracture on your ankle x-ray. Your chest x- ray was reassuring. Your lab work showed no evidence of any blood clot or other major problems. You do have slight anemia which is normal in . The exact cause of the swelling in your legs is not clear. It could be due to problems with the veins in your legs or your history of hepatitis. Please follow-up with your primary care provider for ongoing follow-up as well as your FOREIGN LANGUAGE INSTRUCTOR team. If you have significant worsening symptoms especially any chest pain or difficulty breathing pleasefeel free to return to the emergency room for reevaluation. documented in this encounter Medications at Time of Discharge methadone (DOLOPHINE) 10 mg tablet Take 13.5 Tablets by mouth daily. doxylamine 25 mg tablet tablet Take 0.5 Tablets by mouth at bedtime. 30 Tablet 1 08/10/2021 01/06/2022 vit,horacio 74/iron/folic ( VITAMIN 1+1 ORAL) Take by mouth. 01/06/2022 pyridoxine, vitamin B6, (VITAMIN B6) 50 mg tablet Take 0.5 Tablets by mouth 3 times daily as needed for up to 40 days for Nausea (Slowly increase to TID). 30 Tablet 1 08/10/2021 09/19/2021 documented as of this encounter Discharge Disposition Disposition Code Departure Means Destination Home or Self [facility] documented in this encounter ED Notes * Bonilla Talavera MD - 09/14/20211955 EDT Emergency Department Visit Assessment and ED Course 26-year-old female who is roughly 18 weeks with ongoing IV drug use presents for evaluation of bilateral lower extremity swelling left greater than right as well as a sensation of feeling off . On arrival here in the emergency department she is slightly tachycardic but without any hypoxia, hypotension. On exam she looks well and does not appear to be in any acute distress. Physical exam is somewhat unremarkable with the exception of bilateral pitting edema in the lower extremities up to the knees worse on the left than the right. Etiology of swelling not clear. D dimer ordered to evaluate for PE which is negative. Labs showing mild hyponatremia, slight anemia. NO murmur. NO clear infectious symptoms. Patient well appearing. DDx for swelling includes venous insufficiency, med effect, possibly related to underlying hepatitis C. Discharged to follow up with PCP and FOREIGN LANGUAGE INSTRUCTOR. Final diagnoses: Swelling of lower extremity during in second trimester Disposition: No disposition on file Chief complaint: foot swelling, dizziness HPI Karin Dixon is a 26 y.o. female presents for evaluation of feeling off, bilateral foot swelling which is worse than the left. She states that this has been an off-and-on issue for the last couple of years. Currently but states that she has had episodes of swelling in her left foot while she was non as well. Swelling in legs has been present for a few weeks this time. Currently much better since she has been elevating the legs last night. She denies any significant difficulty breathing, chest pain. States that she 'feels off'. Unable to describe this any further. No lightheadedness. No fevers or chills. No history of CHF. No abdominal pain. History was provided by: Patient Patient's pertinent PMH, FH, SH were reviewed and edited as necessary. ROS A 10-point review of systems was performed. The patient answered negative to all questions with theexceptions of those explicitly detailed as positives in the HPI. Pertinent negatives are also explicitly stated. Physical Exam BP 113/72 Pulse (!) 137 Temp 36.7 ??C (98 ??F) (Oral) Resp 18 Ht 170.2 cm (67) Wt 53.1 kg (117 lb) LMP 05/12/2021 (Approximate) SpO2 99% BMI 18.32 kg/m?? A medical screening exam was performed. Physical Exam Constitutional: General: She is not in acute distress. Appearance: She is well-developed and well-nourished. HENT: Head: Normocephalic and atraumatic. Eyes: General: No scleral icterus. Extraocular Movements: EOM normal. Conjunctiva/sclera: Conjunctivae normal. Pupils: Pupils are equal, round, and reactive to light. Cardiovascular: Rate and Rhythm: Normal rate and regular rhythm. Pulses: Intact distal pulses. Heart sounds: Normal heart sounds. Pulmonary: Effort: Pulmonary effort is normal. No respiratory distress. Breath sounds: Normal breath sounds. No stridor. Abdominal: General: There is no distension. Palpations: Abdomen is soft. Tenderness: There is no abdominal tenderness. There is no guarding. Comments: Gravid with uterine fundus just below umbilicus. No significant tenderness noted. Musculoskeletal: General: No tenderness. Normal range of motion. Cervical back: Normal range of motion and neck supple. Comments: Bilateral lower extremity pitting edema worse on the left than the right. No overlying skin changes. No rash noted. 2+ DP pulses bilaterally. Skin: General: Skin is warm and dry. Findings: No erythema. Neurological: Mental Status: She is alert and oriented to person, place, and time. Psychiatric: Mood and Affect: Mood and affect normal. Behavior: Behavior normal. Thought Content: Thought content normal. Laboratory results independently reviewed. Procedures Procedures documented in this encounter Plan of Treatment Not on file documented as of this encounter Procedures Procedure Name Priority Date/Time Associated Diagnosis Comments ECG REPORT - SCANNED 09/14/2021 23:01 EDT XR CHEST 2 VIEWS STAT 09/14/2021 21:4 5 EDT XR ANKLE LEFT 3 OR MORE VIEWS STAT 09/14/2021 21:45 EDT UA SEDIMENT (CULTURE IF POS) STAT 09/14/2021 21:15 EDT UA WITH REFLEX SEDIMENT (CULTURE IF POS) STAT 09/14/2021 21:15 EDT D-DIMER STAT 09/14/2021 20:31 EDT COMPLETE BLOOD COUNT AND DIFFERENTIAL STAT 09/14/2021 20:31 EDT COMPREHENSIVE METABOLIC PANEL (CMP) STAT 09/14/2021 20:31 EDT EKG 12-LEAD STAT 09/14/2021 20:18 EDT documented in this encounter Results * ECG REPORT - SCANNED (09/14/2021 23:01 EDT) 09/14/2021 23:0 1 EDT us Scan 2 Manufacturing Recruiter PROCEDURE/MINOR SURGICAL OR DERABLES Final Result * XR CHEST 2 VIEWS (09/14/2021 21:45 EDT) Anatomical Region Laterality Modality Radio Fluoroscop y 09/14/2021 21:0 4 EDT Impressions 09/14/2021 22:02 EDT No acute cardiopulmonary pathology. THIS DOCUMENT HAS BEEN ELECTRONICALLY SIGNED BY DANG MARK MD FOR ANY QUESTIONS OR CONCERNS REGARDING THIS REPORT PLEASE CALL [facility] AT [phone] Narrative 09/14/2021 22:02 EDT PROCEDURE INFORMATION: Exam: XR Chest Exam date and time: 09/14/2021 21:04 Age: 26 years old Clinical indication: Other: Dizziness, , ivdu TECHNIQUE: Imaging protocol: XR of the chest. Views: 2 views. COMPARISON: No relevant prior studies available. FINDINGS: Lungs: No consolidation. Pleural spaces: No pleural effusion. No pneumothorax. Heart/Mediastinum: No cardiomegaly. Bones/joints: No acute fracture. ?? Procedure Note Dang Mark MD - 09/14/2021 PROCEDURE INFORMATION: Exam: XR Chest Exam date and time: 09/14/2021 21:04 Age: 26 years old Clinical indication: Other: Dizziness, , ivdu TECHNIQUE: Imaging protocol: XR of the chest. Views: 2 views. COMPARISON: No relevant prior studies available. FINDINGS: Lungs: No consolidation. Pleural spaces: No pleural effusion. No pneumothorax. Heart/Mediastinum: No cardiomegaly. Bones/joints: No acute fracture. IMPRESSION No acute cardiopulmonary pathology. THIS DOCUMENT HAS BEEN ELECTRONICALLY SIGNED BY DANG MARK MD FOR ANY QUESTIONS OR CONCERNS REGARDING THIS REPORT PLEASE CALL [facility] [phone] Bonilla Talavera MD IMG DIAGNOSTIC IMAGING ORDERA BLES Final Result * XR ANKLE LEFT 3 OR MORE VIEWS (09/14/2021 21:45 EDT) Anatomical Region Laterality Modality Lower Extremities, Ankle Left Compute d Radiography 09/14/2021 21:3 3 EDT Impressions 09/14/2021 22:01 EDT No acute bony pathology. THIS DOCUMENT HAS BEEN ELECTRONICALLY SIGNED BY DANG MARK MD FOR ANY QUESTIONS OR CONCERNS REGARDING THIS REPORT PLEASE CALL [facility] AT [phone] Narrative 09/14/2021 22:01 EDT PROCEDURE INFORMATION: Exam: XR Left Ankle Exam date and time: 09/14/2021 21:33 Age: 26 years old Clinical indication: Pain; Ankle; Left; Additional info: Ankle pain and swelling TECHNIQUE: Imaging protocol: XR Left ankle. Views: 3 or more views. COMPARISON: No relevant prior studies available. FINDINGS: Bones/joints: No acute fracture or subluxation. The ankle mortise is intact. Soft tissues: Generalized soft tissue swelling. Procedure Note Dang Mark MD - 09/14/2021 PROCEDURE INFORMATION: Exam: XR Left Ankle Exam date and time: 09/14/2021 21:33 Age: 26 years old Clinical indication: Pain; Ankle; Left; Additional info: Ankle pain and swelling TECHNIQUE: Imaging protocol: XR Left ankle. Views: 3 or more views. COMPARISON: No relevant prior studies available. FINDINGS: Bones/joints: No acute fracture or subluxation. The ankle mortise is intact. Soft tissues: Generalized soft tissue swelling. IMPRESSION No acute bony pathology. THIS DOCUMENT HAS BEEN ELECTRONICALLY SIGNED BY DANG MARK MD FOR ANY QUESTIONS OR CONCERNS REGARDING THIS REPORT PLEASE CALL [facility] [phone] Bonilla Talavera MD IM DIAGNOSTIC IMAGING ORDERA BLES Final Result * (ABNORMAL) UA SEDIMENT (CULTURE IF POS) (09/14/2021 21:15 EDT) Urine RBC Count, Manual 0 - 2 0 - 2 Cells/HPF 09/14/2021 21:29 EDT [facility] Urine WBC Count 0 - 3 0 - 3 Cells/HPF 09/14/2021 21:29 EDT [facility] Urine Squamous Count, Manual Few(A) None Seen Cells/HPF 09/14/2021 21:29 EDT [facility] Urine Bacteria Count, Manual Few(A) None Seen Bacteria/ HPF 09/14/2021 21:29 [facility] Urine Crystals Amorphous Phosphates Present(A) None Seen 09/14/2021 21:29 [facility] Urine URINE SPECIMEN COLLECTION, CLEAN CATCH / Unknown Urine Collect / Unknown 09/14/2021 21:15 EDT 09/14/2021 21:18 T Narrative [facility] - 09/14/2021 21:29 EDT Urine Sediment Analysis results are unreliable on urines that are unrefrigerated for >2 hrs or refrigerated >8 hrs. us Bonilla Talavera MD URINALYSIS ORDERABLES Final R esult [facility] [address] [place] [address] * (ABNORMAL) UA WITH REFLEX SEDIMENT (CULTURE IF POS) (09/14/2021 21:15 EDT) Color UA Yellow Colorless to Dark Yellow 09/14/2021 21:29 [facility] Clarity UA Slightly Cloudy(A) Clear 09/14/2021 21:29 [facility] Glucose UA Negative Negative 09/14/2021 21:29 [facility] Bilirubin UA Negative Negative 09/14/2021 21:29 [facility] Ketones UA Negative Negative 09/14/2021 21:29 [facility] Specific [place], Urine 1.015 1.001 - 1.035 09/14/2021 21:29 [facility] Blood UA Negative Negative 09/14/2021 21:29 [facility] pH, UA 7.5 4.6 - 8.0 09/14/2021 21:29 [facility] Protein UA Negative Negative 09/14/2021 21:29 [facility] Urobilinogen UA 1.0 0.2 , 1.0, Normal mg/dL 09/14/2021 21:29 [facility] Nitrite UA Negative Negative 09/14/2021 21:29 EDT [facility] Leukocyte Esterase UA Negative Negative 09/14/2021 21:29 EDT [facility] Urine URINE SPECIMEN COLLECTION, CLEAN CATCH / Unknown Urine Collect / Unknown 09/14/2021 21:15 EDT 09/14/2021 21:18 EDT Bonilla Talavera MD URINALYSIS ORDERABLES Final R esult Performing Organization Address [facility] de Phone Number [facility] [address] [place] [address] * D-DIMER (09/14/2021 20:31 EDT) D-Dimer 216 <230 ng/mL DDU 09/14/2021 21:34 EDT [facility] Blood VENOUS BLOOD / Unknown Venipuncture / Unknown 09/14/2021 20:31 EDT 09/14/2021 20:37 EDT Narrative [facility] - 09/14/2021 21:34 EDT Cutoff value for the exclusion of DVT and PE: 230 ng/mL D-dimer units. Any use of the age-adjusted cutoff value is a post-analytic modification of this FDA-approved test and is considered off-label use of the test result. us Bonilla Talavera MD HEMATOLOGY & PF4 ORDERABLES F inal Result Performing Organization Address [facility] de Phone [facility] [address] [place] [address] * (ABNORMAL) COMPREHENSIVE METABOLIC PANEL (CMP) (09/14/2021 20:31 EDT) Sodium 134(L) 136 - 145 mmol/L 09/14/2021 22:43 EDT [facility] Potassium 3.6 3.5 - 5.0 mmol/L 09/14/2021 22:43 EDT [facility] Chloride 103 96 - 110 mmol/L 09/14/2021 22:43 EDT [facility] CO2 Total 24 22 - 32 mmol/L 09/14/2021 22:43 [facility] Glucose 89 70 - 100 mg/dL 09/14/2021 22:43 [facility] BUN 5(L) 10 - 26 mg/dL 09/14/2021 22:43 [facility] Creatinine 0.48(L) 0.52 - 1.04 mg/dL 09/14/2021 22:43 [facility] eGFR 135 >60 mL/min/1.7 3m2 09/14/2021 22:43 [facility] Total Protein 6.1(L) 6.3 - 8.2 g/dL 09/14/2021 22:43 [facility] Albumin 3.1(L) 3.4 - 4.9 g/dL 09/14/2021 22:43 [facility] Alkaline Phosphatase 47 38 - 126 U/L 09/14/2021 22:43 [facility] AST 32 15 - 46 U/L 09/14/2021 22:43 [facility] ALT 26 <35 U/L 09/14/2021 22:43 [facility] Bilirubin, Total <0.2 <1.4 mg/dL 09/15/19 22:43 [facility] Calcium 8.1(L) 8.5 - 10.5 mg/dL 09/14/2021 22:43 [facility] Albumin/Globulin Ratio 1.0 1.0 - 2.5 09/14/2021 22:43 [facility] Anion Gap 7 5 - 14 09/14/2021 22:43 [facility] Blood VENOUS BLOOD / Unknown Venipuncture / Unknown 09/14/2021 20:31 EDT 09/14/2021 20:37 EDT us Bonilla Talavera MD CHEMISTRY & BLOOD GAS ORDERAB LES Final Result [facility] [address] [place] [address] * (ABNORMAL) COMPLETE BLOOD COUNT AND DIFFERENTIAL (09/14/2021 20:31 [facility]) WBC 4.05 4.00 - 12.40 K/cmm 09/14/2021 20:40 [facility] RBC 3.81(L) 3.86 - 5.04 M/cmm 09/14/2021 20:40 [facility] Hemoglobin 10.8(L) 11.6 - 15.2 gm/dL 09/14/2021 20:40 [facility] HCT 33.5(L) 34.9 - 44.4 % 09/14/2021 20:40 [facility] MCV 88 81 - 98 fl 09/14/2021 20:40 [facility] MCH 28.3 26.7 - 33.3 pg 09/14/2021 20:40 [facility] MCHC 32.2 32.1 - 35.9 gm/dL 09/14/2021 20:40 [facility] RDW-CV 13.6 <14.7 % 09/14/2021 20:40 [facility] RDW-SD 43.7 <50.4 fl 09/14/2021 20:40 [facility] PLT 252 141 - 377 K/cmm 09/14/2021 20:40 [facility] MPV 9.1(L) 9.5 - 12.7 fl 09/14/2021 20:40 [facility] % Neutrophils 58.8 % 09/14/2021 20:40 [facility] % Lymphocytes 31.6 % 09/14/2021 20:40 [facility] % Monocytes 7.7 % 09/14/2021 20:40 [facility] % Eosinophils 1.7 % 09/14/2021 20:40 [facility] % Basophils 0.2 % 09/14/2021 20:40 [facility] % Immature Grans 0.0 % 09/15/19 20:40 [facility] Absolute Neutrophils 2.38 2.20 - 8.85 K/cmm 09/14/2021 20:40 EDT [facility] Absolute Lymphocytes 1.28 1.09 - 3.30 K/cmm 09/14/2021 20:40 EDT [facility] Absolute Monocytes 0.31 0.10 - 0.80 K/cmm 09/14/2021 20:40 EDT [facility] Absolute Eosinophils 0.07 0.03 - 0.61 K/cmm 09/14/2021 20:40 EDT [facility] ABS Basophils 0.01 0.01 - 0.11 K/cmm 09/14/2021 20:40 EDT [facility] Absolute Immature Grans 0.00 0.00 - 0.06 K/cmm 09/14/2021 20:40 EDT [facility] Type of Differential: Auto 09/14/2021 20:40 EDT [facility] Blood VENOUS BLOOD / Unknown Venipuncture / Unknown 09/14/2021 20:31 EDT 09/14/2021 20:36 EDT us Bonilla Talavera MD PACKAGES & DNA PROBE ORDERABL ES Final Result Performing Organization Address City/State/[facility] Co de Phone Number [facility] [address] [place] [address] * EKG 12-LEAD (09/14/2021 20:18 EDT) 09/14/2021 20:1 8 EDT Narrative [facility] - 09/14/2021 22:56 EDT ? [facility] ? Test Date: ?2021-09-14 Pat Name: ? DESAREA SALLS ?Department: ? Room: ? A06 Gender: ? Female ? Insulation Nozzleman: ?? BINH : ?1995 ? Requested By: HARIS ASHLEY B Order Number: [id number] ? Reading MD: ?? CLAY MCDANIELS MD ? Measurements Intervals ?[place] ? Rate: ? 99 ? P: ?56 SD: ? 150 ?QRS: ?23 QRSD: ? 86 ? T: ?60 QT: ? 366 ? QTc: ?469 ? Interpretive Statements Normal sinus rhythm No previous ECG available for comparison I reviewed the tracing and have either agreed or edited the findings in this report. Electronically Signed On 09-14-2021 22:56:45 EDT by CLAY MCDANIELS MD. Procedure Note Clay Mcdaniels MD - 09/14/2021 [facility] Date: 2021-09-14 Pat Name: KARIN DIXON Department: Room: [facility] Gender: Female Insulation Nozzleman: BINH : 1995 Requested By: HARIS Ortiz Order Number: [id number] Reading MD: CLAY MCDANIELS MD Measurements Intervals [place] Rate: 99 P: 56 SD: 150 QRS: 23 QRSD: 86 T: 60 QT: 366 QTc: 469 Interpretive Statements Normal sinus rhythm No previous ECG available for comparison I reviewed the tracing and have either agreed or edited the findings inthis report. Electronically Signed On 09-14-2021 22:56:45 EDT by CLAY DE LA ROSA. Bonilla Talavera MD CARDIAC ECG ORDERABLES Final Result [facility] documented in this encounter Visit Diagnoses Diagnosis Swelling of lower extremity during in second trimester- Primary documented in this encounter Care Teams [employer] Workers Relationship Specialty Start Date End Date Martha Saavedra FNP [address] [place] [address],[address] [place] [address] PCP - General 02/01/17 09/15/22 documented as of this encounter
--- OUTSIDE RECORDS SUMMARY | 2024-07-06 18:51 | XMS_ITS | Encounter Summary ---
Author Organization [facility] Address [address] [place] [address] Care Team Providers Care Emblem Cutter Name Role Phone Martha Saavedra [facility] Primary Care Provi devon Encounter Details Date Type Department Care Team (Late st Contact Info) Description 01/08/2019 Results Only [facility] [phone] Bobbi Mai APRN [address] [place] [address] Social History Tobacco Use Types Packs/Day Years [...] Associated Diagnosis Comments UA CHEMICAL ONLY Routine 01/08/2019 14:0 0 EDT URINE CULTURE IF POSITIVE Routine 01/08/2019 14:00 EDT CHLAMYDIA/N. GONORRHOEAE AMPLIFIED RNA, URINE Routine 01/08/2019 14:00 EDT BACTERIAL CULTURE, URINE Routine 01/08/2019 14:00 EDT documented in this encounter Results * CHLAMYDIA/N. GONORRHOEAE AMPLIFIED RNA, URINE (01/08/2019 14:00 EDT) Chlamydia Result Negative 01/10/20 19 13:53 EDT [facility] GC Result Negative 01/09/2019 13:53 EDT [facility] Comment: A first catch urine specimen is acceptable for detection of Gonorrhea and Chlamydia, but might detect up to 10% fewer infections when compared with vaginal and endocervical swab samples. URINE / Unknown 01/08/2019 1 4:00 EDT 01/08/2019 22:53 EDT Bobbi Mai APRN MICROBIOLOGY - GENERAL ORDERA BLES Final Result Performing Organization Address [facility] Co de Phone Number [facility] [address] [place] [address] * BACTERIAL CULTURE, URINE (01/08/2019 14:00 EDT) Result 10,000 to 100,000 CFU/ml Usual urogenital yusuf. 01/10/2019 7:42 EDT [facility] URINE / Unknown 01/08/2019 1 4:00 EDT 01/08/2019 22:25 EDT Bobbi Mai APRN MICROBIOLOGY - GENERAL ORDERA BLES Final Result Performing Organization Address City/[facility]/ZIP Co de Phone Number [facility] [address] [place] [address] * URINE CULTURE IF POSITIVE (01/08/2019 14:00 EDT) Culture if Indicated Culture indicated by urinalysis results. 01/08/2019 21:30 EDT [facility] TOPOGRAPHY UNKNOWN / Unknown 01/08/2019 14:00 EDT 01/08/2019 21:20 EDT us Bobbi Mai STEAM FLATTENER MICROBIOLOGY - GENERAL ORDERA BLES Final Result Performing Organization Address City/[facility]/ZIP Co de Phone Number [facility] [address] [place] [address] * (ABNORMAL) UA CHEMICAL (DIPSTICK ONLY) (01/08/2019 14:00 EDT) Color, UA Yellow 01/08/2019 21:30 EDT [facility] Clarity, UA Hazy 01/08/2019 21:30 EDT [facility] Glucose, UA Neg Neg 01/08/2019 21:30 EDT [facility] Bilirubin, UA Neg Neg 01/08/2019 21:30 EDT [facility] Ketones, UA Neg Neg 01/08/2019 21:30 EDT [facility] Refractometer SG,Urine 1.027 1.001 - 1.035 01/08/2019 21:30 T [facility] Blood, UA Neg Neg 01/08/2019 21:30 EDT [facility] pH, UA 6.0 4.6 - 8.0 01/08/2019 21:30 EDT [facility] Protein, UA Neg Neg 01/08/2019 21:30 T [facility] Urobilinogen, UA Normal Normal E.U./dl 01/08/2019 21:30 EDT [facility] Nitrite, UA Neg Neg 01/08/2019 21:30 T [facility] Leuk Esterase 3+(A) Neg 01/08/2019 21:30 T [facility] UA Method Used 01/08/2019 21:21 T [facility] Comment: Testing performed using [employer]. URINE / Unknown 01/08/2019 1 4:00 EDT 01/08/2019 21:20 EDT Bobbi Mai STEAM FLATTENER URINALYSIS ORDERABLES Final R esult Performing Organization Address City/[facility]/ZIP Co de Phone Number [facility] [address] [place] [address] documented in this encounter Visit Diagnoses Not on filedocumented in this encounter Care Teams Emblem Cutter Relationship Specialty Start Date End Date Martha Saavedra FNP [address] [facility],[address] [place] [address] PCP - General 02/01/17 09/15/22 documented as of this encounter
--- OUTSIDE RECORDS SUMMARY | 2024-07-06 18:51 | XMS_ITS | Encounter Summary ---
Author Organization [facility] Address [address] [place] [address] Care Team Providers Care Monorail Car Operator Name Role Phone Martha Saavedra [facility] Primary Care Provi devon Reason for Visit * Reason Comments Urinary Tract Infection Frequency, burni ng, voiding small amounts. Symptoms started 02/09 Encounter Details Date Type Department Care Team (Late st Contact Info) Description 02/11/2020 11:15 EDT Walk-In [address] [id number] Nancy Jha PA-C [address] [place] [address] [address] [place] [address] Frequency of urination (Primary Dx) Social History Tobacco Use Types [...] 46 EDT documented as of this encounter Last Filed Vital Signs Vital Sign Reading Time Taken Comments Blood Pressure 123/64 02/11/2020 1220 EDT Pulse 80 02/11/2020 1220 EDT Temperature 36.3 ??C (97.4 ??F) 02/11/2020 1220 EDT Respiratory Rate 16 02/11/2020 1220 EDT Oxygen Saturation 100% 02/11/2020 1220 EDT Inhaled Oxygen Concentration - - Weight - - Height - - Body Mass Index - - documented in this encounter Patient Instructions * Patient Instructions* Nancy Jha PA-C - 02/11/2020 11:15 EDT Images from the original note were not included. [facility] Patient Instructions Urinary Tract Infection in Women: Care Instructions Your Care Instructions A urinary tract infection, or UTI, is a general term for an infection anywhere between the kidneys and the urethra (where urine comes out). Most UTIs are bladder infections. They often cause pain or burning when you urinate. UTIs are caused by bacteria and can be cured with antibiotics. Be sure to complete your treatment so that the infection goes away. Follow-up care is a mitchell part of your treatment and safety. Be sure to make and go to all appointments, and call your doctor if you are having problems. It's also a good idea to know your test resultsand keep a list of the medicines you take. How can you care for yourself at home? ?? Take your antibiotics as directed. Do not stop taking them just because you feel better. You need to take the full course of antibiotics. ?? Drink extra water and other fluids for the next day or two. This may help wash out the bacteria that are causing the infection. (If you have kidney, heart, or liver disease and have to limit fluids, talk with your doctor before you increase your fluid intake.) ?? Avoid drinks that are carbonated or have caffeine. They can irritate the bladder. ?? Urinate often. Try to empty your bladder each time. ?? To relieve pain, take a hot bath or lay a heating pad set on low over your lower belly or genital area. Never go to sleep with a heating pad in place. To prevent UTIs ?? Drink plenty of water each day. This helps you urinate often, which clears bacteria from your system. (If you have kidney, heart, or liver disease and have to limit fluids, talk with your doctor before you increase your fluid intake.) ?? Urinate when you need to. ?? Urinate right after you have sex. ?? Change sanitary pads often. ?? Avoid douches, bubble baths, feminine hygiene sprays, and other feminine hygiene products that have deodorants. ?? After going to the bathroom, wipe from front to back. When should you call for help? Call your doctor now or seek immediate medical care if: ? Symptoms such as fever, chills, nausea, or vomiting get worse or appear for the first time. ? You have new pain in your back just below your rib cage. This is called flank pain. ? There is new blood or pus in your urine. ? You have any problems with your antibiotic medicine. Watch closely for changes in your health, and be sure to contact your doctor if: ? You are not getting better after taking an antibiotic for 2 days. ? Your symptoms go away but then come back. Where can you learn more? Go to [email or web address] or log into your [employer] account at [email or web address] Enter K848 in the search box to learn more about Urinary Tract Infection in Women: Care Instructions. Current as of: December 09, 2019?Content Version: 12.6 ?? [id number] [employer]. Care instructions adapted under license by [facility]. If you have questions about a medical condition or this instruction, always ask your healthcare professional. [employer] disclaims any warranty or liability for your use of this information. documented in this encounter Ordered Prescriptions Prescription Sig Dispense Quantity Refills Last Filled Start Date End Date nitrofurantoin, macrocrystal-monohy drate, (MACROBID) 100 mg capsuleIndications: Frequency of urination Take 1 Cap by mouth 2 times daily for 5 days. 10 Cap 02/11/2020 02/16/2020 documented in this encounter Progress Notes * Wanda Hackett - 02/11/2020 1115 EDT CC: Painful urination Has the patient contacted their PCP regarding this chief complaint? NO Covid Screening: Fever, chills, body aches: NO New or unusual cough, SOB: NO Decrease/change in sense of taste or smell: NO Sore throat or headache:NO Have you been in close contact (less than 6 ft for more than 15 minutes) with suspected or confirmed person with Covid-19 in past 14 days: NO Travel outside of [place] in last 14 days? NO If yes, was it to a low risk location? Reference [facility] Travel Map to see if the location falls within a low risk area (<400 casesper million): [email or web address] * Nancy Jha PA-C - 02/11/2020 1115 EDT [facility] Express [facility] Chief Complaint(s): Urinary Tract Infection (Frequency, burning, voiding small amounts. Symptoms started 02/09) HPI: Patient reports dysuria, urinary frequency and voiding small amounts that began yesterday, patient just ended her current menstrual cycle per patient history, no fevers, patient also needs a note to return to work, patient reports she missed a few days due to not feeling well after missing a few doses of her methadone, patient is requesting a note that she was seen here today and can return to work, patient expressed concern over possibly losing her job, no gross hematuria ROS: Review of Systems Constitutional: Negative for fever. Genitourinary: Positive for dysuria, frequency and urgency. Negative for flank pain and hematuria. Objective: Examination: Vitals: BP 123/64 (BP Cuff Location: Right arm, BP Patient Position: Sitting, BP Cuff Sizes: Adult, long) Pulse 80 Temp 36.3 ??C (97.4 ??F) (Temporal) Resp 16 SpO2 100% Physical Exam Constitutional: General: She is not in acute distress. Appearance: She is normal weight. She is not toxic-appearing. Cardiovascular: Rate and Rhythm: Normal rate. Pulmonary: Effort: No respiratory distress. Neurological: Mental Status: She is alert and oriented to person, place, and time. Coordination: Coordination normal. Procedures Assessment & Plan: 1. Frequency of urination - POCT URINE DIPSTICK, VISUAL READ - nitrofurantoin, macrocrystal-monohydrate, (MACROBID) 100 mg capsule; Take 1 Cap by mouth 2 times daily for 5 days. Dispense: 10 Cap; Refill: 0 Results for orders placed or performed in visit on 02/11/20 POCT URINE DIPSTICK, VISUAL READ Result Value Ref Range Color, UA Yellow Clarity, UA Clear Glucose, UA Negative . mg/dL Bilirubin, UA Moderate . Ketones, UA Trace (A) . mg/dL Spec Grav, UA >1.030 (A) . Blood, UA Moderate . pH, UA 6.0 4.6 - 8.0 Protein, UA 100 mg/dL . mg/dL Urobilinogen, UA 4.0 (A) 0.2 - 1.0 E.U./dL Nitrite, UA Negative . Leuk Esterase Trace (A) . Comment Note given that patient can return to work after visit express care today, ensure hydration, will treat with Macrobid, follow-up PCP PRN documented in this encounter Plan of Treatment Not on file documented as of this encounter Procedures Procedure Name Priority Date/Time Associated Diagnosis Comments POCT URINE DIPSTICK, VISUAL READ Routine 02/11/2020 Frequency of urination documented in this encounter Results * (ABNORMAL) POCT URINE DIPSTICK, VISUAL READ (02/11/2020) Color, UA Yellow [facility] POIN T OF CARE Clarity, UA Clear [facility] PO INT OF CARE Glucose, UA Negative . mg/dL [facility] PO INT OF CARE Bilirubin, UA Moderate . [facility] POINT OF CARE Ketones, UA Trace(A) . mg/dL [facility] PO INT OF CARE Spec Grav, UA >1.030(A) . [facility] POINT [facility] CARE Blood, UA Moderate . [facility] POIN T OF CARE pH, UA 6.0 4.6 - 8.0 [facility] POIN T OF CARE Protein, UA 100 mg/dL . mg/dL [facility] PO INT OF CARE Urobilinogen, UA 4.0(A) 0.2 - 1.0 E.U./dL [facility] POINT OF CARE Nitrite, UA Negative . [facility] PO INT OF CARE Leuk Esterase Trace(A) . [facility] POINT OF CARE Comment [facility] POIN T OF CARE Urine URINE SPECIMEN OBTAINED BY CLEAN CATCH PROCEDURE / Unknown 02/11/2020 us Nancy Jha PA-C POINT OF CARE TEST ORDERABLES Final Result [facility] POINT OF CARE documented in this encounter Visit Diagnoses Diagnosis Frequency of urination- Primary Urinary frequency documented in this encounter Care Teams Monorail Car Operator Relationship Specialty Start Date End Date Martha Saavedra FNP [address] [place] [address],[address] [place] [address] PCP - General 02/01/17 09/15/22 documented as of this encounter
--- OUTSIDE RECORDS SUMMARY | 2024-07-06 18:51 | XMS_ITS | Encounter Summary ---
Author Organization [facility] Address [address] [place] [address] Care Team Providers Care Affiliate Marketing Coordinator Name Role Phone Martha Saavedra Noe Harjeet [facility] Primary Care Provi devon Reason for Visit * Reason Comments Routine Visit Karin reports n tee has slightly improved. She never started taking vitamin B6 or Unisom. Reports an upcoming appt with Dr. Montes on 08/23/21. Encounter Details Date Type Department Care Team (Late st Contact Info) Description 08/16/2021 14:40 EST Routine [facility] - [facility] [address] [place] [address] Dona Cooper NP CN [address] [facility], [address] [place] [address] GA: 13w1d Social History Tobacco Use Types Packs/Day Years [...] Sign Reading Time Taken Comments Blood Pressure 100/62 08/16/2021 1447 EST Pulse - - Temperature - - Respiratory Rate - - Oxygen Saturation - - Inhaled Oxygen Concentration - - Weight 52.8 kg (116 lb 6.4 oz) 08/16/[address] Height 168.9 cm (5' 6.5) 08/16/2021 1447 EST Body Mass Index 18.51 08/16/2021 1447 EST documented in this encounter Functional Status [...] in this encounter Progress Notes * Dona Cooper APRN - 08/16/2021 1440 EST Chief Complaint Patient presents with ??? Routine Visit Karin reports nausea has slightly improved. She never started taking vitamin B6 or Unisom. Reports an upcoming appt with Dr. Montes on 08/23/21. S: Karin Dixon is a 26 y.o. at 13w1d IUP here today for a visit. Concerns today: none. Still hasn't called [facility]. Unsure what she wants to do about the . Will do her labs today, also cfDNA and sex. Overall doing well. Denies cramping, bleeding, LOF. Nausea is improving. Current Outpatient Medications: ??? doxylamine 25 mg tablet tablet, Take 0.5 Tablets by mouth at bedtime. (Patient not taking: Reported on 08/16/2021), Disp: 30 Tablet, Rfl: 1 ??? methadone (DOLOPHINE) 10 mg tablet, Take 140 mg by mouth daily., Disp: , Rfl: ??? vit,horacio 74/iron/folic ( VITAMIN 1+1 ORAL), Take by mouth., Disp: , Rfl: ??? pyridoxine, vitamin B6, (VITAMIN B6) 50 mg tablet, Take 0.5 Tablets by mouth 3 times daily as needed for up to 40 days for Nausea (Slowly increase to TID). (Patient not taking: Reported on 08/16/2021), Disp: 30 Tablet, Rfl: 1 O: Vitals: BP: 100/62 Height: 168.9 cm (66.5) Weight : 52.8 kg (116 lb 6.4 oz) BMI: 18.547 Appears well, NAD Neck supple no nodes, no Tmegal RRR normal S2S2, no M LCTA no wheeze Breasts NT, no mass ABD SND. Declines FHTs today. Infection Prevention Practitioner - deferred Skin clear A: 26 y.o. at 13w1d IUP 1. Supervision of high risk in first trimester LAB VENIPUNCTURE DRAW TEST TRICHOMONAS VAGINALIS PCR - [facility] DRUG SCREEN, PRESCRIPTION/OTC, URINE CHLAMYDIA/N. GONORRHOEAE AMPLIFIED RNA 2. Chronic hepatitis C without hepatic coma ([facility]) ([facility]) 3. 13 weeks gestation of LAB VENIPUNCTURE DRAW TEST 4. Substance abuse ([facility]) ([facility]) DRUG SCREEN, PRESCRIPTION/OTC, URINE P: UDS verbal consent. Hx of relapse a few weeks ago - may be positive due to heroin use CHT referral due to housing issues - has to move in 30 days. cfDNA today with labs. Will also do urine GC/CL/trich Second trimester precautions reviewed. Next AP visit in 4 weeks. Call/see sooner PRN. Dona Cooper CNM, PLASTIC INJECTION MOLD MAKER Certified Nurse Sandfill Operator Surface & Family Nurse Practitioner documented in this encounter Miscellaneous Notes * Addendum Note - Amanda Hunt - 08/16/2021 1440 ESTAddended by: AMANDA HUNT on: 08/16/2021 18:11 Modules accepted: Orders * Addendum Note - Dona Coopre APRN - 08/16/2021 1440 ESTAddended by: DONA COOPER on: 08/17/2021 18:51 Modules accepted: Orders documented in this encounter Plan of Treatment Not on file documented as of this encounter Procedures Procedure Name Priority Date/Time Associated Diagnosis Comments DRUG SCREEN 12, URINE Routine 08/16/2021 15:08 EST Chronic hepatitis C without hepatic coma (HCC-CMS) (HCC) Substance abuse (HCC-CMS) (HCC) Supervision of high risk in first trimester 13 weeks gestation of TRICHOMONAS VAGINALIS PCR - [facility] Routine 08/16/2021 15:08 EST Supervision of high risk in first trimester CHLAMYDIA/N. GONORRHOEAE AMPLIFIED NUCLEIC ACID Routine 08/16/2021 15:08 EST Supervision of high risk in first trimester documented in this encounter Results * HEPATITIS B SURFACE ANTIBODY (08/16/2021 15:28 EST) Hep B Surface Ab, Quantitative 0.0 See Note mIU/mL 08/17/2021 20:02 EST [facility] Comment: Clinical Interpretation [...] EST 08/16/2021 16:15 EST us Dona Luisa Cooper RAILROAD TRACK INSPECTOR CNM CHEMISTRY & BLO OD GAS ORDERABLES Final Result [facility] [address] [place] [address] * LAB VENIPUNCTURE DRAW TEST (08/16/2021 15:28 EST) [facility] Hold MarkITx. Non-invasive Screening and Carrier Collection Kit 08/16/2021 16:39 [facility] Blood VENOUS BLOOD / Unknown Venipuncture / Unknown 08/16/2021 15:28 EST 08/16/2021 16:23 EST Dona Cooper NP CNM LAB INF O SERVICE AND SUPPORT & PHONE RESULT Final Result [facility] [address] [place] [address] * (ABNORMAL) DRUG SCREEN 12, URINE (08/16/2021 15:08 EST) [facility] Amphetamine Screen, Ur Negative Negative, Negative Screen 08/16/2021 18:42 [facility] Barbiturates Screen, Ur Negative Negative, Negative Screen 08/16/2021 18:42 [facility] Benzodiazepine Screen, Ur Negative Negative, Negative Screen 08/16/2021 18:42 [facility] Cocaine Metabolites Screen, Ur Presumptive Positive, interpret with caution.(A) Negative, Negative Screen 08/16/2021 18:42 [facility] Methamphetamine Screen, Ur Negative Negative, Negative Screen 08/16/2021 18:42 [facility] Methadone Screen, Ur Presumptive Positive, interpret with caution.(A) Negative, Negative Screen 08/16/2021 18:42 [facility] Opiates Screen, Ur Presumptive Positive, interpret with caution.(A) Negative, Negative Screen 08/16/2021 18:42 [facility] Oxycodone Screen, Ur Negative Negative, Negative Screen 08/16/2021 18:42 [facility] Phencyclidine Screen, Ur Negative Negative Screen, Negative 08/16/2021 18:42 [facility] Cannabinoids Screen, Ur Negative Negative, Negative Screen 08/16/2021 18:42 EST [facility] Propoxyphene Screen, Ur Negative Negative, Negative Screen 08/16/2021 18:42 EST [facility] Tricyclics Screen, Ur Negative Negative Screen, Negative 08/16/2021 18:42 EST [facility] Urine URINE / Unknown Urine Collect / Unknown 08/16/2021 15:08 EST 08/16/2021 18:11 EST Narrative [facility] - 08/16/2021 18:42 EST Drug Class Cutoff Concentrations: Amphetamines - [...] retained in the laboratory for 7 days. us Dona Luisa Cooper NP CNM GEN LAB UNIT CO LLECT ORDERABLES Final Result Performing Organization Address City/State/[facility] Co de Phone Number [facility] [address] [place] [address] * CHLAMYDIA/N. GONORRHOEAE AMPLIFIED RNA (08/16/2021 15:08 EST) Neisseria gonorrhoeae Result Negative Negative 08/16/2021 21:42 EST [facility] Chlamydia trachomatis Result Negative Negative 08/16/2021 21:42 EST [facility] Urine URINE / Unknown Urine Collect / Unknown 08/16/2021 15:08 EST 08/16/2021 15:08 EST Narrative [facility] - 08/16/2021 21:42 EST A first catch urine specimen is acceptable for detection of Gonorrhea and Chlamydia, but might detect up to 10% fewer infections when compared with vaginal and endocervical swab samples. ? ? Xpert CT/NG Assay performance has not been evaluated in patients less than 14 years of age. ? ? Xpert CT/NG Assay performance has not been evaluated in women, or in patients with a history of hysterectomy. Dona Cooper NP, CNM MICROBIOLOGY - GENERAL ORDERABLES Final Result [facility] [address] [place] [address] * TRICHOMONAS VAGINALIS PCR - [facility] (08/16/2021 15:08 EST) Trichomonas Vaginalis, PCR Not Detected Not Detected 08/17/2021 15:09 EST [facility] Comment:Xpert TV assay perfo rmance has not been evaluated in women or in patients with a history of hysterectomy. Urine URINE / Unknown Urine Collect / Unknown 08/16/2021 15:08 EST 08/16/2021 15:08 EST Dona Cooper NP, CNM MICROBIOLOGY - GENERAL ORDERABLES Final Result Performing Organization Address City/[facility] Co de Phone Number [facility] [address] [place] [id number] documented in this encounter Visit Diagnoses Diagnosis Supervision of high risk in first trimester- Primary Unspecified high-risk Chronic hepatitis C without hepatic coma (HCC-CMS) Chronic hepatitis C without mention of hepatic coma 13 weeks gestation of state, incidental Substance abuse (HCC-CMS) Other, mixed, or unspecified nondependent drug abuse, unspecified documented in this encounter Care Teams Affiliate Marketing Coordinator Relationship Specialty Start Date End Date Martha Saavedra FNP [address] [place] [address],[address] [place] [address] PCP - General 02/01/17 09/15/22 documented as of this encounter
--- OUTSIDE RECORDS SUMMARY | 2024-07-06 18:51 | XMS_ITS | Encounter Summary ---
Author Organization [facility] Address [address] [place] [address] Care Team Providers Care Horser Up Name Role Phone Martha Saavedra Noe Harjeet [facility] Primary Care Provi devon Encounter Details Date Type Department Care Team (Latest Contact Info) Description 01/16/2019 11:25 EDT - 01/16/2019 11:26 EDT Hospital Encounter [id number] [place] [address] Bobbi Mai, MATHEMATICS DEPARTMENT CHAIR [address] [place], [place] [address] Discharge Disposition: Home or Self Care Social History Tobacco Use Types Packs/Day Years Used Date Smoking Tobacco: Never Assessed Comments Unknown Sex and Gender Information Value Date Recorded Sex Assigned at Not on file Legal Sex Female 14:50 EDT Gender Identity Female 07/06/2021 12:52 EST Sexual Orientation Straight 02/11/2022 2: 46 EDT documented as of this encounter Discharge Diagnoses Diagnosis F11.20 Opioid dependence, uncomplicated-F11.20[ICD-10-CM] F19.10 Other psychoactive substance abuse, uncomplicated-F19.10[ICD-10-CM] N76.0 Acute vaginitis-N76.0[ICD-10-CM] documented in this encounter Discharge Disposition Disposition Code Departure Means Destination Home or Self Care documented in this encounter Plan of Treatment Not on file documented as of this encounter Visit Diagnoses Not on filedocumented in this encounter Care Teams Horser Up Relationship Specialty Start Date End Date Martha Saavedra FNP [address] [facility],[address] [place] [address] PCP - General 02/01/17 09/15/22 documented as of this encounter
--- OUTSIDE RECORDS SUMMARY | 2024-07-06 18:51 | XMS_ITS | Encounter Summary ---
Author Organization [facility] Address [address] [place] [address] Care Team Providers Care Stove Mounter Name Role Phone Martha Saavedra Noe Cosby [facility] Primary Care Provi devon Reason for Visit * Reason Onset Date Comments Appointment Related 09/16/2021 Encounter Details Date Type Department Care Team (Late st Contact Info) Description 09/16/2021 Telephone [facility] [address] [place], [place] [id number] Tammy Foreman [address] [facility] [address] [place] [address] Appointment Related Social History Tobacco [...] * Telephone Encounter - Tammy Foreman - 09/16/2021 1352 EDT Called pt re no-show for 09/13/21 and to f/u from ED visit 09/14/21, reminder to call [facility] to magaly next ; as well as to offer other ap supports; no ans; lm for pt around above. Patent Drafter will f/u with pt to ensure continued care. documented in this encounter Plan of Treatment Not on file documented as of this encounter Visit Diagnoses Not on filedocumented in this encounter Care Teams Stove Mounter Relationship Specialty Start Date End Date Martha Saavedra FNP [address] [facility],[address] [place] [address] PCP - General 02/01/17 09/15/22 documented as of this encounter
--- OUTSIDE RECORDS SUMMARY | 2024-07-06 18:51 | XMS_ITS | Encounter Summary ---
Author Organization [facility] Address [address] [place] [address] Care Team Providers Care Chemist Physical Name Role Phone Martha Saavedra Noe Harjeet [facility] Primary Care Provi devon None, Provider Primary Care Provider Trevon Billingsley MD Primary Care Provider Eliza Rain MD Unavailable [phone] Dona Casper [facility] Unavailable Encounter Details Date Type Department Care Team (Late st Contact Info) Description 01/10/2020 Lab Requisition [facility] Pathology & Laboratory Medicine - [facility] [address] [place], [place] [id number] Outr Resulting Lab, Provider Social History Tobacco [...] Procedure Name Priority Date/Time Associated Diagnosis Comments CHLAMYDIA/N. GONORRHOEAE AMPLIFIED NUCLEIC ACID Routine 01/10/2020 13:15 EDT documented in this encounter Results * CHLAMYDIA/N. GONORRHOEAE AMPLIFIED RNA (01/10/2020 13:15 EDT) Neisseria gonorrhoeae Result Negative Negative 01/13/2020 13:59 EDT [facility] Chlamydia trachomatis Result Negative Negative 01/13/2020 13:59 EDT [facility] Swab ENTIRE ENDOCERVIX / Unknown 01/10/2020 13:15 EDT 01/10/2020 21:28 EDT us Provider Outr Resulting Lab MICROBIOLOGY - GENER AL ORDERABLES Final Result [facility] [address] [place] [address] documented in this encounter Visit Diagnoses Not on filedocumented in this encounter Additional Health Concerns Infection Onset Date Last Indicated Resolved Time R/O COVID-19 10/11/2021 10/11/2021 10/16/2021 22:1 7 EDT COVID-19 10/11/2021 10/11/2021 10/31/2021 22:1 5 EDT R/O COVID-19 11/13/2021 11/13/2021 11/13/2021 10:4 5 EDT documented as of this encounter Care Teams Chemist Physical Relationship Specialty Start Date End Date Martha Saavedra FNP [address] [facility] [place] [address] PCP - General 02/01/17 09/15/22 None, Provider PCP - General 09/16/22 05/23/23 Trevon Boyd MD [address] [place] [address] [address] [place] [id number] PCP - General Family Medicine - Primary Care 05/24/23 Eliza Rain MD [address] [place] [address] [address] [place] [address] Infectious Disease 05/24/23 Dona Casper NP Jose [address] [place] [address], [address] [place] [address] Systems Manager Midwifery 05/24/23 documented as of this encounter
--- OUTSIDE RECORDS SUMMARY | 2024-07-06 18:51 | XMS_ITS | Encounter Summary ---
Author Organization [facility] Address [address] [place] [address] Care Team Providers Care House Worker Name Role Phone Martha Saavedra Noe Schroeders [facility] Primary Care Provi devon Reason for Visit * Reason Onset Date Comments Follow-up 08/19/2021 Encounter Details Date Type Department Care Team (Late st Contact Info) Description 08/19/2021 Telephone [facility] - [facility] OBG[facility] [address] [place] [address] Tammy Foreman [address] [place] [address] [address] [place] [address] Follow-up Social History Tobacco Use [...] * Telephone Encounter - Tammy Foreman - 08/19/2021 1401 EST Also documented in [facility] referral work queue: Loss Prevention Analyst called pt, no ans, left generic message as no out going message to indicate this was pt's phone. documented in this encounter Plan of Treatment Not on file documented as of this encounter Visit Diagnoses Not on filedocumented in this encounter Care Teams House Worker Relationship Specialty Start Date End Date Martha Saavedra FNP [address] [facility] [place] [address] PCP - General 02/01/17 09/15/22 documented as of this encounter
--- OUTSIDE RECORDS SUMMARY | 2024-07-06 18:51 | XMS_ITS ---
Author Organization [facility] Address [address] [place] [address] Care Team Providers Care Progressive Care Manager Name Role Phone Trevon Boyd MD Primary Care Provider Eliza Rain MD Unavailable [phone] Dona Casper NP CN Unavailable Infectious Disease Status:Discharged (Closed) Start date:07/19/2022 Enrollment date:07/19/2022 End date:06/22/2023 Close reason:Therapy completed Linked medications:glecaprevir/pibrentasvir (Discontinued) Linked problems:Chronic hepatitis C virus infection ([facility]) (Active) Overview ; Transfer to [facility] each fill Continued Care and Services Coordination
--- OUTSIDE RECORDS SUMMARY | 2024-07-06 18:51 | XMS_ITS | Encounter Summary ---
Author Organization [facility] Address [address] [place] [address] Care Team Providers Care Battery Assembler Name Role Phone Martha Saavedra [facility] Primary Care Provi devon None, Provider Primary Care Provider Trevon Billingsley MD Primary Care Provider Eliza Rain MD Unavailable [phone] Dona Casper [facility] Unavailable Encounter Details Date Type Department Care Team (Latest Contact Info) Description 05/24/2019 Lab Requisition [facility] Pathology & Laboratory Medicine - [facility] [address] [place] [address] Nancy Blakely, MULTIFOCAL BUTTON GENERATOR [address] [place] [address] Encounter for screening for infections with a predominantly sexual mode of transmission; Encounter for screening for other infectious and parasitic diseases Social History Tobacco Use Types Packs/Day Years [...] Diagnosis Comments CHLAMYDIA/N. GONORRHOEAE AMPLIFIED NUCLEIC ACID Today 05/22/2019 13:05 EST Encounter for screening for infections with a predominantly sexual mode of transmission Encounter for screening for other infectious and parasitic diseases documented in this encounter Results * CHLAMYDIA/N. GONORRHOEAE AMPLIFIED RNA (05/22/2019 13:05 EST) Neisseria gonorrhoeae Result Negative Negative 05/27/2019 14:27 EST [facility] Chlamydia trachomatis Result Negative Negative 05/27/2019 14:27 EST [facility] Urine URINE / Unknown 05/22/2019 1 3:05 EST 05/24/2019 21:03 EST Narrative [facility] - 05/27/2019 14:27 EST A first catch urine specimen is acceptable for detection of Gonorrhea and Chlamydia, but might detect up to 10% fewer infections when compared with vaginal and endocervical swab samples. us Nancy Blakely MULTIFOCAL BUTTON GENERATOR MICROBIOLOGY - GENERAL ORD ERABLES Final Result [facility] [address] [place] [address] documented in this encounter Visit Diagnoses Diagnosis Encounter for screening for infections with a predominantly sexual mode of transmission Encounter for screening for other infectious and parasitic diseases documented in this encounter Additional Health Concerns Infection Onset Date Last Indicated Resolved Time R/O COVID-19 10/11/2021 10/11/2021 10/16/2021 22:1 7 EDT COVID-19 10/11/2021 10/11/2021 10/31/2021 22:1 5 EDT R/O COVID-19 11/13/2021 11/13/2021 11/13/2021 10:4 5 EDT documented as of this encounter Care Teams Battery Assembler Relationship Specialty Start Date End Date Martha Saavedra FNP [address] [facility] [place] [address] PCP - General 02/01/17 09/15/22 None, Provider PCP - General 09/16/22 05/23/23 Trevon Boyd MD [address] [place] [phone] PCP - General Family Medicine - Primary Care 05/24/23 Eliza Rain MD [address] [place] [address] Infectious Disease 05/24/23 Dona Casper, HUYEN MASSEY [address] [place] [address], [address] [place] [address] [employer] Midwifery 05/24/23 documented as of this encounter
--- OUTSIDE RECORDS SUMMARY | 2024-07-06 18:51 | XMS_ITS | Encounter Summary ---
Author Organization [facility] Address [address] [place] [address] Care Team Providers Care Legal Clerk Name Role Phone Martha Saavedra Noe Harjeet [facility] Primary Care Provi devon Encounter Details Date Type Department Care Team (Late st Contact Info) Description 01/16/2019 Results Only [facility] [phone] Bobbi Mai APRN [address] [place] [address] Social History Tobacco Use Types Packs/Day Years [...] RNA QUANT WITH REFLEX TO GENOTYPE Routine 01/16/2019 12:45 EDT GENOTYPE Routine 01/16/2019 12:45 EDT ZZVAGINITIS EXAM Routine 01/16/2019 12:4 5 EDT HIV 1/2 ANTIGEN AND ANTIBODY, 4TH GENERATION Routine 01/16/2019 12:45 EDT documented in this encounter Results * GENOTYPE (01/16/2019 12:45 EDT) Genotype Hepatitis C Virus Genotype Not Performed. 01/17/2019 13:51 EDT [facility] Comment: Specimens for HCV genotype must have a viral load of > or = 15 IU/mL. BLOOD SPECIMEN / Unknown 01/16/2019 12:45 EDT 01/16/2019 21:11 EDT Bobbi Mai APRN CHEMISTRY & BLOOD GAS ORDERAB LES Final Result Performing Organization Address City/[facility]/ZIP Co de Phone Number [facility] [address] [place] [address] * VAGINITIS EXAM (01/16/2019 12:45 EDT) Pathologist [facility] Gram Smear Result No yeast seen. 01/16/2019 23:15 EDT [facility] Gram Smear Result Smear consistent with BACTERIAL VAGINOSIS. 01/16/2019 23:15 EDT [facility] Result Trichomonas antigen detected. 01/16/2019 22:55 EDT [facility] VAGINAL STRUCTURE / Unknown 01/16/2019 12:45 EDT 01/16/2019 21:32 EDT Comment:Specimen submitted o n a flocked swab. Bobbi Mai APRN MICROBIOLOGY - GENERAL ORDERA BLES Final Result Performing Organization Address City/[facility]/ZIP Co de Phone Number [facility] [address] [place] [address] * HIV 1/2 ANTIGEN AND ANTIBODY, 4TH GENERATION (01/16/2019 12:45 EDT) Pathologist [facility] HIV 1/2 Antibody Negative Negative 01/18/20 12:26 EDT [facility] Comment: Fourth generation assay performed on the Siemens CogniKaur. If acute HIV-1 infection is suspected in a high risk patient, submit plasma specimen for HIV-1 RNA quantification test. BLOOD SPECIMEN / Unknown 01/16/2019 12:45 EDT 01/16/2019 21:11 EDT Bobbi Mai APRN IMMUNOLOGY AND SEROLOGY ORDER SWAPNIL Final Result Performing Organization Address [facility] Co de Phone Number [facility] [address] [place] [address] * HCV RNA QUANT WITH REFLEX TO GENOTYPE (01/16/2019 12:45 EDT) [facility] HCV RNA Detect Quant Undetected Undetected IU/mL 01/17/2019 13:46 EDT [facility] Comment: Reference Range: ??Undetected The quantification range of this assay is 15 IU/mL to 100,000,000 IU/mL. Testing was performed by the [employer] TaqMan HCV v2.0 ([employer] BLOOD SPECIMEN / Unknown 01/16/2019 12:45 EDT 01/16/2019 21:11 EDT Bobbi Mai APRN CHEMISTRY & BLOOD GAS ORDERAB LES Final Result Performing Organization Address [facility] Co de Phone Number [facility] [address] [place] [address] documented in this encounter Visit Diagnoses Not on filedocumented in this encounter Care Teams Legal Clerk Relationship Specialty Start Date End Date Martha Saavedra FNP [address] [place] [address],[address] [place] [address] PCP - General 02/01/17 09/15/22 documented as of this encounter
--- OUTSIDE RECORDS SUMMARY | 2024-07-06 18:51 | XMS_ITS | Encounter Summary ---
Author Organization [facility] Address [address] [place] [address] Care Team Providers Care Tax Map Technician Name Role Phone Martha Saavedra Noe Harjeet [facility] Primary Care Provi devon Encounter Details Date Type Department Care Team (Latest Contact Info) Description 06/30/2017 12:20 EST - 06/30/2017 12:21 EST Hospital Encounter [id number] [place] [address] Bobbi Mai, APARTMENT MAINTENANCE [address] [place] [address] Discharge Disposition: Home or Self Care Social History Tobacco Use Types Packs/Day Years Used Date Smoking Tobacco: Never Assessed Comments Unknown Sex and Gender Information Value Date Recorded Sex Assigned at Not on file Legal Sex Female 14:50 EDT Gender Identity Female 07/06/2021 12:52 EST Sexual Orientation Straight 02/11/2022 2: 46 EDT documented as of this encounter Discharge Diagnoses Diagnosis N89.8 Other specified noninflammatory disorders of vagina-N89.8[ICD-10-CM] Z72.51 High risk heterosexual behavior-Z72.51[ICD-10-CM] documented in this encounter Discharge Disposition Disposition Code Departure Means Destination Home or Self Care documented in this encounter Plan of Treatment Not on file documented as of this encounter Visit Diagnoses Not on filedocumented in this encounter Care Teams Tax Map Technician Relationship Specialty Start Date End Date Martha Saavedra FNP [address] [facility] [place] [address] PCP - General 02/01/17 09/15/22 documented as of this encounter
--- OUTSIDE RECORDS SUMMARY | 2024-07-06 18:51 | XMS_ITS | Encounter Summary ---
Author Organization [facility] Address [address] [place] [address] Care Team Providers Care Product Manager Name Role Phone Martha Saavedra Noe Harjeet [facility] Primary Care Provi devon Reason for Visit * Reason Onset Date Comments Telemedicine Phone Call 01/06/2020 Encounter Details Date Type Department Care Team (Late st Contact Info) Description 01/06/2020 Telephone [facility] [address] [place], [place] [address] [facility] [address] [place] [address] Telemedicine Phone Call Social History Tobacco Use Types Packs/Day Years Used Date Smoking Tobacco: Never Assessed Comments Unknown Sex and Gender Information Value Date Recorded Sex Assigned at Not on file Legal Sex Female 14:50 EDT Gender Identity Female 07/06/2021 12:52 EST Sexual Orientation Straight 02/11/2022 2: 46 EDT documented as of this encounter Miscellaneous Notes * Telephone Encounter - Beata Cardoza RN - 01/07/2020 1531 EDT Pt came in for a visit yesterday. * Telephone Encounter - Dale Urbano RN - 01/06/2020 1720 EDT Clinic closed at this time. Sending TE to tomorrow mornings charge nurse to call patient in AM. * Telephone Encounter - Nicholas Hernandez - 01/06/2020 1318 EDT Patient thinks she has a tooth infection and is looking to get a Rx for it through [facility] if possible. documented in this encounter Plan of Treatment Not on file documented as of this encounter Visit Diagnoses Not on filedocumented in this encounter Care Teams Product Manager Relationship Specialty Start Date End Date Martha Saavedra FNP [address] [place] [address],[address] [place] [address] PCP - General 02/01/17 09/15/22 documented as of this encounter
--- OUTSIDE RECORDS SUMMARY | 2024-07-06 18:51 | XMS_ITS | Encounter Summary ---
Author Organization [facility] Address [address] [place] [address] Care Team Providers Care Steaming Cabinet Tender Name Role Phone Martha Saavedra Noe Harjeet [facility] Primary Care Provi devon Reason for Visit * Reason Comments Telemedicine Phone Call Encounter Details Date Type Department Care Team (Late st Contact Info) Description 08/03/2021 12:40 EST Nurse Only [facility] OBGYN [address], [place] [address] Nurse, [facility]omens care in first trimester (Primary Dx) Social History Tobacco Use Types [...] documented in this encounter Progress Notes * Bettina Veloz RN - 08/03/2021 1240 EST Spoke with pt on phone. Reviewed epic information. Reviewed IVAP packet information: timeline for preg, nutrtion, medications, morning sickeness, constipation, community health team, director smb sales,comfort measures, birthing center tour, childbirth classes, WIC, resources, office contact info andwhen to call the office. Discussed genetics and discussed first appointment process. Answered questions. Orders entered. documented in this encounter Plan of Treatment Not on file documented as of this encounter Procedures Procedure Name Priority Date/Time Associated Diagnosis Comments SYPHILIS RPR SCREEN W/REFLEX Routine 08/16/2021 15:28 EST care in first trimester documented in this encounter Results * SYPHILIS RPR SCREEN W/REFLEX (08/16/2021 15:28 EST) [facility] Rapid Plasma Reagin Screen (RPR) Nonreactive Nonreactive 08/19/2021 8:08 EST [facility] Blood VENOUS BLOOD / Unknown Venipuncture / Unknown 08/16/2021 15:28 EST 08/16/2021 16:15 EST us Dona Luisa Casper NP, CNM IMMUNOLOGY AND SEROLOGY ORDERABLES Final Result [facility] [address] [place] [address] * (ABNORMAL) HEPATITIS C AB W REFLEX TO HCV RNA BY PCR (08/16/2021 15:28 EST) [facility] Hep C Antibody Reactive(A ) Negative 08/16/2021 17:42 EST [facility] Blood VENOUS BLOOD / Unknown Venipuncture / Unknown 08/16/2021 15:28 EST 08/16/2021 16:15 EST us Dona Brettler Yanethvort [employer] CNM CHEMISTRY & BLO OD GAS ORDERABLES Final Result Performing Organization Address [facility]/ZIP Co de Phone Number [facility] [address] [place] [address] * RUBELLA IGG ANTIBODY (08/16/2021 15:28 EST) Rubella IgG Ab Positive See Note 08/16/2021 17:24 EST [facility] Comment:The presence of Rube lla IgG suggests immunity against Rubella. Blood VENOUS BLOOD / Unknown Venipuncture / Unknown 08/16/2021 15:28 EST 08/16/2021 16:15 EST us Dona Brettyifan Pinort [employer] CNM CHEMISTRY & BLO OD GAS ORDERABLES Final Result Performing Organization Address [facility]/ZIP Co de Phone Number [facility] [address] [place] [address] * VARICELLA IGG ANTIBODY (08/16/2021 15:28 EST) Varicella IgG Ab Positive See Note 08/17/2021 22:20 EST [facility] Comment:Presence of detectab le Varicella Zoster virus IgG antibodies. Blood VENOUS BLOOD / Unknown Venipuncture / Unknown 08/16/2021 15:28 EST 08/16/2021 16:15 EST us Odna Brettler Yanethvort [employer] CNM IMMUNOLOGY AND SEROLOGY ORDERABLES Final Result Performing Organization Address City/[facility]/ZIP Co de Phone Number [facility] [address] [place] [address] * HIV 1/2 ANTIGEN AND ANTIBODY, 4TH GENERATION (08/16/2021 15:28 EST) HIV 1 and 2 Antibody/p24 Antigen, 4th Generation Negative Negative 08/16/2021 17:40 [facility] Comment:If acute HIV-1 infec tion is suspected in a high risk patient, submit plasma specimen for HIV-1 RNA quantitation test. Blood VENOUS BLOOD / Unknown Venipuncture / Unknown 08/16/2021 15:28 EST 08/16/2021 16:15 EST us Dona Luisa Casper [employer] CNM IMMUNOLOGY AND SEROLOGY ORDERABLES Final Result Performing Organization Address [facility] Co de Phone Number [facility] [address] [place] [address] * HEPATITIS B SURFACE ANTIGEN (08/16/2021 15:28 EST) Hep B Surface Ag Negative Negative 08/17/19 17:42 [facility] Comment: Expected values: Negative The results of this assay can be falsely lowered due to the consumption of Biotin. Blood VENOUS BLOOD / Unknown Venipuncture / Unknown 08/16/2021 15:28 EST 08/16/2021 16:15 EST us Dona Luisa DAVALOSM CHEMISTRY & BLO OD GAS ORDERABLES Final Result Performing Organization Address [facility] de Phone Number [facility] [address] [place] [address] * TYPE AND SCREEN (08/16/2021 15:28 EST) ABO A 08/16/2021 18:38 [facility] Rh Factor Positive 08/16/2021 18:38 [facility] Antibody Screen Negative 08/16/2021 18:38 [facility] Specimen Expires: 08/19/2021 @ 23:59 08/16/2021 18:38 [facility] Blood VENOUS BLOOD / Unknown Venipuncture / Unknown 08/16/2021 15:28 EST 08/16/2021 18:06 EST us Dona Luisa Casper [employer] ANOOPM BLOOD BANK TEST S Edited Result - Final Performing Organization Address [facility] de Phone Number [facility] [address] [place] [address] * COMPLETE BLOOD COUNT AND DIFFERENTIAL (08/16/2021 15:28 [facility]) WBC 4.62 4.00 - 12.40 K/cmm 08/16/2021 16:24 [facility] RBC 4.15 3.86 - 5.04 M/cmm 08/16/2021 16:24 [facility] Hemoglobin 11.8 11.6 - 15.2 gm/dL 08/16/2021 16:24 [facility] HCT 36.5 34.9 - 44.4 % 08/16/2021 16:24 [facility] MCV 88 81 - 98 fl 08/16/2021 16:24 [facility] MCH 28.4 26.7 - 33.3 pg 08/16/2021 16:24 [facility] MCHC 32.3 32.1 - 35.9 gm/dL 08/16/2021 16:24 [facility] RDW-CV 13.2 <14.7 % 08/16/2021 16:24 [facility] RDW-SD 42.5 <50.4 fl 08/16/2021 16:24 [facility] PLT 276 141 - 377 K/cmm 08/16/2021 16:24 [facility] MPV 10.0 9.5 - 12.7 fl 08/16/2021 16:24 [facility] % Neutrophils 57.3 % 08/16/2021 16:24 [facility] % Lymphocytes 33.1 % 08/16/2021 16:24 [facility] % Monocytes 8.4 % 08/16/2021 16:24 [facility] % Eosinophils 0.6 % 08/16/2021 16:24 [facility] % Basophils 0.4 % 08/16/2021 16:24 [facility] % Immature Grans 0.2 % 08/17/19 16:24 [facility] Absolute Neutrophils 2.64 2.20 - 8.85 K/cmm 08/16/2021 16:24 [facility] Absolute Lymphocytes 1.53 1.09 - 3.30 K/cmm 08/16/2021 16:24 [facility] Absolute Monocytes 0.39 0.10 - 0.80 K/cmm 08/16/2021 16:24 [facility] Absolute Eosinophils 0.03 0.03 - 0.61 K/cmm 08/16/2021 16:24 [facility] ABS Basophils 0.02 0.01 - 0.11 K/cmm 08/16/2021 16:24 [facility] Absolute Immature Grans 0.01 0.00 - 0.06 K/cmm 08/16/2021 16:24 [facility] Type of Differential: Auto 08/16/2021 16:24 [facility] Blood VENOUS BLOOD / Unknown Venipuncture / Unknown 08/16/2021 15:28 EST 08/16/2021 16:21 EST us Dona Luisa Casper NP CNM PACKAGES & DNA PROBE ORDERABLES Final Result Performing Organization Address City/State/[facility] Co de Phone Number [facility] [address] [place] [address] * UA WITH REFLEX SEDIMENT (08/10/2021 11:08 EST) Color UA Yellow Colorless to Dark Yellow 08/10/2021 14:23 [facility] Clarity UA Clear Clear 08/10/2021 14:23 [facility] Glucose UA Negative Negative 08/10/2021 14:23 [facility] Bilirubin UA Negative Negative 08/10/2021 14:23 [facility] Ketones UA Negative Negative 08/10/2021 14:23 [facility] Specific [place], Urine 1.020 1.001 - 1.035 08/10/2021 14:23 [facility] Blood UA Negative Negative 08/10/2021 14:23 [facility] pH, UA 7.5 4.6 - 8.0 08/10/2021 14:23 [facility] Protein UA Negative Negative 08/10/2021 14:23 [facility] Urobilinogen UA 1.0 0.2 , 1.0, Normal mg/dL 08/10/2021 14:23 [facility] Nitrite UA Negative Negative 08/10/2021 14:23 [facility] Leukocyte Esterase UA Negative Negative 08/10/2021 14:23 [facility] Urine URINE SPECIMEN COLLECTION, CLEAN CATCH / Unknown Urine Collect / Unknown 08/10/2021 11:08 EST 08/10/2021 11:08 EST us Dona Casper NP, CNM URINALYSIS ORDE RABLES Final Result Performing Organization Address [facility] Co de Phone Number [facility] [address] [place] [address] * BACTERIAL CULTURE, URINE (08/10/2021 11:08 EST) Organism ID [id number] to 100,000 CFU/ml VITEK SUSCEPTIBILITY 08/12/2021 10:24 [facility] Comment:Usual urogenital gabriela ra. Urine URINE SPECIMEN COLLECTION, CLEAN CATCH / Unknown Urine Collect / Unknown 08/10/2021 11:08 EST 08/10/2021 11:08 EST Dona Casper NP, CNM MICROBIOLOGY - GENERAL ORDERABLES Final Result Performing Organization Address [facility] Co de Phone Number [facility] [address] [place] [address] documented in this encounter Visit Diagnoses Diagnosis care in first trimester- Primary documented in this encounter Historical Medications * This list may reflect changes made after this encounter. vit,horacio 74/iron/folic ( VITAMIN 1+1 ORAL) Take by mouth. 01/06/2022 added in this encounter Care Teams Steaming Cabinet Tender Relationship Specialty Start Date End Date Martha Saavedra FNP [address] [place] [address] [address] [place] [address] PCP - General 02/01/17 09/15/22 documented as of this encounter
--- OUTSIDE RECORDS SUMMARY | 2024-07-06 18:51 | XMS_ITS | Encounter Summary ---
Author Organization [facility] Address [address] [place] [address] Care Team Providers Care Rn Observation Name Role Phone Martha Saavedra [facility] Primary Care Provi devon Reason for Visit * Reason Onset Date Comments Appointment Related 09/13/2021 Encounter Details Date Type Department Care Team (Late st Contact Info) Description 09/13/2021 Telephone [facility] [address] [place], [place] [address] Shruthi Driscoll, ALLEN Appointment Related Social History [...] Telephone Encounter - Shruthi Driscoll RN - 09/13/2021 4239 EDT This scenario writer called Karin to inquire about her missed appointment today for a Routine . VMhas not been set up unable to leave a message. CHT team aware as well. documented in this encounter Plan of Treatment Not on file documented as of this encounter Visit Diagnoses Not on filedocumented in this encounter Care Teams Rn Observation Relationship Specialty Start Date End Date Martha Saavedra FNP [address] [place] [address],[address] [place] [address] PCP - General 02/01/17 09/15/22 documented as of this encounter
--- OUTSIDE RECORDS SUMMARY | 2024-07-06 18:51 | XMS_ITS | Encounter Summary ---
Author Organization [facility] Address [address] [place] [address] Care Team Providers Care Digital Marketing Lead Name Role Phone Martha Saavedra Noe Harjeet [facility] Primary Care Provi devon Encounter Details Date Type Department Care Team (Late st Contact Info) Description 03/01/[address] [facility] [place] [address] [id number] Clary Hayes, PAChrystalC [address] [place] [address] Social History Tobacco Use Types Packs/Day Years [...] Procedure Name Priority Date/Time Associated Diagnosis Comments ETHYL ALCOHOL [place] [facility] Rout[place] 03/01/2018 13:05 EDT COMPLETE BLOOD COUNT WITH DIFFERENTIAL (AUTO) Routine 03/01/2018 13:05 EDT C REACTIVE PROTEIN Routine 03/01/2018 13 :05 EDT COMPREHENSIVE METABOLIC PANEL (CMP) Routine 03/01/2018 13:05 EDT documented in this encounter Results * ETHYL ALCOHOL - [facility] (03/01/2018 13:05 EDT) ETHYL ALCOHOL - [facility] <10.0 <10 mg/dL 03/01/2018 13:38 EDT [facility] 03/01/2018 13:0 5 EDT 03/01/2018 13:14 EDT us Clary Hayes PA-C CHEMISTRY & BLOOD GAS ORDERA BLES Final Result Performing Organization Address City/[facility]/ZIP Co de Phone Number [facility] * C REACTIVE PROTEIN (03/01/2018 13:05 EDT) Pathologist [facility] C-Reactive Protein <5.0 <10.0 mg/L 03/01/2018 13:38 EDT [facility] 03/01/2018 13:0 5 EDT 03/01/2018 13:14 EDT us Clary Hayes PA-C CHEMISTRY & BLOOD GAS ORDERA BLES Final Result [facility] * (ABNORMAL) COMPREHENSIVE METABOLIC PANEL (CMP) (03/01/2018 13:05 EDT) Pathologist [facility] Albumin % 3.8 3.4 - 4.9 g/dL 03/01/2018 13:38 EDT [facility] ALKALINE PHOSPHATASE - [facility] 62 38 - 126 U/L 03/01/2018 13:38 EDT [facility] BILIRUBIN TOTAL 0.5 0.2 - 1.3 mg/dL 03/01/2018 13:38 EDT [facility] BUN - [facility] 6(L) 10 - 26 mg/dL 03/01/2018 13:38 EDT [facility] CALCIUM - [facility] 9.1 8.5 - 10.5 mg/dL 03/01/2018 13:38 [facility] Chloride 104 96 - 110 mmol/L 03/01/2018 13:38 [facility] CO2 Total 29 22 - 32 mEq/L 03/01/2018 13:38 [facility] CREATININE 0.98 0.52 - 1.04 mg/dL 03/01/2018 13:38 [facility] eGFR >60 03/01/2018 13:38 [facility] Comment: Chronic renal impairment is defined as GFR <60 Multiply result by 1.210 for patients. eGFR calculated using the IDMS-traceable MDRD Study Equation. ??(effective 04/14/2014) Anion Gap 7 0 - 18 03/01/2018 13:38 [facility] GLUCOSE - [facility] 94 70 - 100 mg/dL 03/01/2018 13:38 [facility] Potassium 4.1 3.5 - 5.0 mEq/L 03/01/2018 13:38 [facility] Sodium 140 136 - 145 mEq/L 03/01/2018 13:38 [facility] TOTAL PROTEIN - [facility] 6.8 6.2 - 8.2 gm/dL 03/01/2018 13:38 [facility] SGOT/AST - [facility] 43(H) 14 - 36 U/L 03/01/2018 13:38 [facility] SGPT/ALT - [facility] 36 9 - 52 U/L 8 13:38 [facility] 03/01/2018 13:0 5 EDT 03/01/2018 13:14 EDT us Clary Hayes PA-C CHEMISTRY & BLOOD GAS ORDERA BLES Final Result [facility] * (ABNORMAL) COMPLETE BLOOD COUNT WITH DIFFERENTIAL (AUTO) (03/01/2018 13:05 EDT) ABSOLUTE NEUTROPHIL COUN - [facility] 6.33 1.7 - 7.0 10e3/ul 03/01/2018 13:25 [facility] BASO # - [facility] 0.01 0.0 - 0.3 10e3/uL 03/01/2018 13:25 [facility] BASO % - [facility] 0 0 - 2 % 03/01/2018 13:25 [facility] EOS # - [facility] 0.03(L) 0.05 - 0.5 10e3/uL 03/01/2018 13:25 [facility] EOS % - [facility] 0 0 - 5 % 03/01/2018 13:25 [facility] GRAN % - [facility] 79 40 - 80 % 03/01/2018 13:25 [facility] HEMATOCRIT - [facility] 37.6 34.0 - 47.0 % 03/01/2018 13:25 [facility] HEMOGLOBIN - [facility] 12.1 11.2 - 15.7 g/dl 03/01/2018 13:25 [facility] IG# - [facility] 0.01 0 - 0.07 10e3/uL 03/01/2018 13:25 [facility] IG% - [facility] 0.1 0 - 0.9 % 03/01/2018 13:25 [facility] LYMPH # - [facility] 1.16 0.9 - 2.9 10e3/uL 03/01/2018 13:25 [facility] LYMPH% - [facility] 15(L) 20 - 40 % 03/01/2018 13:25 [facility] MEAN CORPUSCULAR HGB - [facility] 29.0 26 - 34 pg 03/01/2018 13:25 [facility] MEAN CORPUSCULAR HGB CONC - [facility] 32.2 31 - 36 g/dL 03/01/2018 13:25 [facility] MEAN CELL VOLUME - [facility] 90.2 77 - 100 fl 03/01/2018 13:25 [facility] MONO # - [facility] 0.46 0.3 - 0.9 10e3/uL 03/01/2018 13:25 EDT [facility] MONO% - [facility] 6 0 - 12 % 03/01/2018 13:25 EDT [facility] PLATELET COUNT 285 150 - 400 10e3/ul 03/01/2018 [facility] 4.17 3.8 - 5.2 10e6/ul 03/01/2018 [facility] RED CELL DISTRI WIDTH - [facility] 13.4 11.8 - 15.6 % 03/01/2018 13:25 EDT [facility] WHITE BLOOD COUNT - [facility] 8.0 3.5 - 10.5 10e3/ul 03/01/2018 13:25 [facility] 03/01/2018 13:0 5 EDT 03/01/2018 13:14 EDT us Clary Hayes PA-C HEMATOLOGY & PF4 ORDERABLES Final Result [facility] documented in this encounter Visit Diagnoses Not on filedocumented in this encounter Care Teams Digital Marketing Lead Relationship Specialty Start Date End Date Martha Saavedra FNP [address] [place] [address],[address] [place] [address] PCP - General 02/01/17 09/15/22 documented as of this encounter
--- OUTSIDE RECORDS SUMMARY | 2024-07-06 18:51 | XMS_ITS | Encounter Summary ---
Author Organization [facility] Address [address] [place] [address] Care Team Providers Care Linoleum Tile Floor Layer Name Role Phone Martha Saavedra Noe Cosby [facility] Primary Care Provi devon Encounter Details Date Type Department Care Team (Late st Contact Info) Description 11/10/2020 Results Only [facility] - Main [address] [place] [address] Po Ahmadi MD [address] [place] [phone] Social History Tobacco Use Types Packs/Day Years [...] Procedure Name Priority Date/Time Associated Diagnosis Comments TEST CANCELLED - [facility] Routine 11/10/2020 18:28 EDT HEPATITIS C DIAG PROGRESSIVE - [facility] Routine 11/10/2020 18:28 EDT HEPATITIS C AB W/REFLEX - [facility] Routine 11/10/2020 15:53 EDT HIV 1/2 AB, P24 AG - [facility] Routine 11/10/2020 15:53 EDT COMPLETE BLOOD COUNT WITH DIFFERENTIAL (AUTO) Routine 11/10/2020 15:53 EDT HEPATITIS B CORE ANTIBODY (TOTAL) Routine 11/10/2020 15:53 EDT HEPATITIS B SURFACE ANTIBODY Routine 11/10/2020 15:53 EDT HEPATITIS B SURFACE ANTIGEN Routine 11/10/2020 15:53 EDT COMPREHENSIVE METABOLIC PANEL (CMP) Routine 11/10/2020 15:53 EDT documented in this encounter Results * TEST CANCELLED - [facility] (11/10/2020 18:28 EDT) [facility] TEST CANCELLED - [facility] SEE NOTE 11/16/2020 7:51 EDT [facility] Comment: The following test(s) have been cancelled: TEST: ??HEP C GENOTYPE/[place] HCVG REASON FOR CANCELLATION: ??QNS OFFICE/ NOTIFIED CV ADDICTION MED GELY 6 [id number] 11/10/2020 18:2 8 EDT 11/13/2020 18:28 EDT us Po Ahmadi MD CHEMISTRY & BLOOD GAS SHAYLEE MCGILL Final Result [facility] [address] [place] [address] * (ABNORMAL) HEPATITIS C DIAG [facility] (11/10/2020 18:28 EDT) [facility] HEP C RNA BY [facility] [id number](A ) Undetected IU/mL 11/12/2020 16:10 EDT [facility] Comment: Result in log IU/mL is 5.29. ADDITIONAL INFORMATION The quantification range of this assay is 15 to 100,000,000 IU/mL (1.18 log to 8.00 log IU/mL). Testing was performed using the christy HCV test ([employer] with the christy [id number] System. Test Performed by: [facility] [address] [place] [address] Cell Plasterer: Edy Méndez M.D. Ph.D.; CLIA# [id number] [facility] 5.29 11/12/2020 16:10 EDT [facility] 11/10/2020 18:2 8 EDT 11/10/2020 18:28 EDT Po Ahmadi MD CHEMISTRY & BLOOD GAS SHAYLEE MCGILL Final Result Performing Organization Address City/[facility]/ZIP Co de Phone Number [facility] [address] [place] [address] * HEPATITIS B CORE ANTIBODY (TOTAL) (11/10/2020 15:53 EDT) Hepatitis B Core Ab, Total Negative Negative 11/11/2020 14:09 EDT [facility] Comment: Test performed [place] [address] 11/10/2020 15:5 3 EDT 11/10/2020 15:54 EDT Narrative [facility] - 11/11/2020 14:09 EDT Does PT Have a Latex Allergy? NO Po Ahmadi MD CHEMISTRY & BLOOD GAS SHAYLEE MCGILL Final Result Performing Organization Address City/[facility]/ZIP Co de Phone Number [facility] [address] [place] [address] * HEPATITIS C AB W/REFLEX - [facility] (11/10/2020 15:53 EDT) HEPATITIS C AB W/REFLEX [facility] Reactive 11/10/2020 18:28 EDT [facility] Comment:Expected Values: Neg ative. 11/10/2020 15:5 3 EDT 11/10/2020 15:53 EDT [facility] - 11/10/2020 18:28 EDT Does PT Have a Latex Allergy? NO Enter/Edit CPT and ICD codes? N Po Ahmadi MD CHEMISTRY & BLOOD GAS ORDE RABLES Final Result Performing Organization Address [facility] Co de Phone Number [facility] [address] [place] [address] * HEPATITIS B SURFACE ANTIGEN (11/10/2020 15:53 EDT) Hep B Surface Ag Negative 11/10/2020 18:09 EDT [facility] Comment: Expected Values: ??Negative. The results of this assay can be falsely lowered due to the consumption of Biotin. 11/10/2020 15:5 3 EDT 11/10/2020 15:53 EDT [facility] - 11/10/2020 18:28 EDT Does PT Have a Latex Allergy? NO Enter/Edit CPT and ICD codes? N Po Ahmadi MD CHEMISTRY & BLOOD GAS ORDE RABLES Final Result Performing Organization Address [facility] Co de Phone Number [facility] [address] [place] [address] * HEPATITIS B SURFACE ANTIBODY (11/10/2020 15:53 EDT) Hep B Surface Ab, Qualitative 0 11/10/2020 18:09 EDT [facility] Comment: ?Interpretative Guidelines < 5.00 mIU/mL = ?Negative Clinical Interpretation of Immune Status: Patient is considered to be not immune to infection with HBV. The results of this assay can be falsely lowered due to the consumption of Biotin. 11/10/2020 15:5 3 EDT 11/10/2020 15:53 EDT [facility] - 11/10/2020 18:28 EDT Does PT Have a Latex Allergy? NO Enter/Edit CPT and ICD codes? N Po Ahmadi MD CHEMISTRY & BLOOD GAS ORDSven MCGILL Final Result Performing Organization Address City/[facility] Co de Phone Number [facility] [address] [place] [address] * HIV 1/2 AB, P24 AG - [facility] (11/10/2020 15:53 EDT) [facility] HIV 1/2 AB, P24 AG - [facility] Negative Negative 11/10/2020 18:02 EDT [facility] 11/10/2020 15:5 3 EDT 11/10/2020 15:53 EDT [facility] - 11/10/2020 18:02 EDT Does PT Have a Latex Allergy? NO Po Ahmadi MD CHEMISTRY & BLOOD GAS SHAYLEE MCGILL Final Result Performing Organization Address [facility] Co de Phone Number [facility] [address] [place] [address] * (ABNORMAL) COMPREHENSIVE METABOLIC PANEL (CMP) (11/10/2020 15:53 EDT) [facility] Albumin % 4.2 3.4 - 4.9 g/dL 11/10/2020 17:20 EDT [facility] ALKALINE PHOSPHATASE - MC 45 38 - 126 U/L 11/10/2020 17:20 EDT [facility] BILIRUBIN TOTAL 0.4 0.2 - 1.3 mg/dL 11/10/2020 17:20 EDT [facility] BUN - [facility] 8(L) 10 - 26 mg/dL 11/10/2020 17:20 EDT [facility] CALCIUM - [facility] 9.5 8.5 - 10.5 mg/dL 11/10/2020 17:20 [facility] Chloride 102 96 - 110 mmol/L 11/10/2020 17:20 [facility] CO2 Total 26 22 - 32 mEq/L 11/10/2020 17:20 [facility] CREATININE 0.88 0.52 - 1.04 mg/dL 11/10/2020 17:20 [facility] eGFR >60 11/10/2020 17:20 [facility] Comment: Chronic renal impairment is defined as GFR <60 Multiply result by 1.210 for patients. eGFR calculated using the IDMD-traceable MDRD Study Equation. ??(effective 04/14/2014) Anion Gap 12 0 - 18 11/10/2020 17:20 [facility] GLUCOSE - [facility] 76 70 - 100 mg/dL 11/10/2020 17:20 [facility] Potassium 4.0 3.5 - 5.0 mEq/L 11/10/2020 17:20 [facility] Sodium 140 136 - 145 mEq/L 11/10/2020 17:20 [facility] TOTAL PROTEIN - [facility] 7.1 6.2 - 8.2 gm/dL 11/10/2020 17:20 [facility] SGOT/AST - [facility] 39(H) 14 - 36 U/L 11/10/2020 17:20 [facility] SGPT/ALT - [facility] 38(H) 0 - 35 U/L 17:20 [facility] 11/10/2020 15:5 3 EDT 11/10/2020 15:53 [facility] - 11/10/2020 17:20 EDT Does PT Have a Latex Allergy? NO us Po Ahmadi MD CHEMISTRY & BLOOD GAS SHAYLEE MCGILL Final Result [facility] [address] [place] [address] * (ABNORMAL) COMPLETE BLOOD COUNT WITH DIFFERENTIAL (AUTO) (11/10/2020 15:53 EDT) ABSOLUTE NEUTROPHIL COUN - [facility] 2.0(L) 2.2 - 8.85 10e3/uL 11/10/2020 17:00 EDT [facility] BASO # - [facility] 0.03 0.01 - 0.11 10e/uL 11/10/2020 17:00 EDT [facility] BASO % - [facility] 1 0 - 2 % 11/10/2020 17:00 EDT [facility] EOS # - [facility] 0.11 0.03 - 0.61 10e3/ul 11/10/2020 17:00 EDT [facility] EOS % - [facility] 2 0 - 5 % 11/10/2020 17:00 EDT [facility] GRAN % - [facility] 42.7 40 - 80 % 11/10/2020 17:00 EDT [facility] HEMATOCRIT - [facility] 36.9 34.9 - 44.4 % 11/10/2020 17:00 EDT [facility] HEMOGLOBIN - [facility] 11.9 11.6 - 15.2 g/dl 11/10/2020 17:00 T [facility] IG# - [facility] 0.01 0 - 0.7 10e3/uL 11/10/2020 17:00 EDT [facility] IG% - [facility] 0.2 0 - 0.9 % 11/10/2020 17:00 EDT [facility] LYMPH # - [facility] 2.2 1.09 - 3.3 10e3/ul 11/10/2020 17:00 EDT [facility] LYMPH% - [facility] 46.0(H) 20 - 40 % 11/10/2020 17:00 EDT [facility] MEAN CORPUSCULAR HGB - [facility] 28.7 26.7 - 33.3 pg 11/10/2020 17:00 EDT [facility] MEAN CORPUSCULAR HGB CONC - [facility] 32.2 32.1 - 35.9 g/dL 11/10/2020 17:00 EDT [facility] MEAN CELL VOLUME - [facility] 89.1 81 - 98 fl 11/10/2020 17:00 EDT [facility] MONO # - [facility] 0.4 0.1 - 0.8 10e3/uL 11/10/2020 17:00 EDT [facility] MONO% - [facility] 8.1 0 - 12 % 11/10/2020 17:00 EDT [facility] PLATELET COUNT 293 141 - 377 10e3/ul 11/10/2020 17:00 EDT [facility] RED BLOOD COUNT - [facility] 4.14 3.86 - 5.04 10e6/ul 11/10/2020 17:00 EDT [facility] RED CELL DISTRI WIDTH - [facility] 13.0 <14.7 % 11/10/2020 17:00 EDT [facility] WHITE BLOOD COUNT - [facility] 4.7 4.0 - 12.4 10e3/ul 11/10/2020 17:00 EDT [facility] 11/10/2020 15:5 3 EDT 11/10/2020 15:53 EDT Narrative [facility] - 11/10/2020 17:00 EDT Does PT Have a Latex Allergy? NO us Po Ahmadi MD HEMATOLOGY & PF4 ORDERABLE S Final Result Performing Organization Address City/State/[facility] Co de Phone Number [facility] [address] [place] [address] documented in this encounter Visit Diagnoses Not on filedocumented in this encounter Care Teams Linoleum Tile Floor Layer Relationship Specialty Start Date End Date Martha Saavedra FNP [address] [place] [address] PCP - General 02/01/17 09/15/22 documented as of this encounter
--- OUTSIDE RECORDS SUMMARY | 2024-07-06 18:51 | XMS_ITS | Encounter Summary ---
Author Organization [facility] Address [address] [place] [address] Care Team Providers Care Perpetual Inventory Clerk Name Role Phone Martha Saavedra [facility] Primary Care Provi devon Reason for Visit * Reason Comments Dental Pain Patient reports ongo ing dental pain that worsened over the course of the last 24 hours. Encounter Details Date Type Department Care Team (Late st Contact Info) Description 01/06/2020 15:45 EDT Walk-In [address] [address] Daxa Huston PA-C [address] [place] [phone] Dental decay (Primary Dx) Social History Tobacco Use Types [...] Sign Reading Time Taken Comments Blood Pressure 110/82 01/06/2020 1552 EDT Pulse 85 01/06/2020 1552 EDT Temperature 36.6 ??C (97.9 ??F) 01/06/2020 1552 EDT Respiratory Rate 18 01/06/2020 1552 EDT Oxygen Saturation 98% 01/06/2020 1552 EDT Inhaled Oxygen Concentration - - Weight - - Height - - Body Mass Index - - documented in this encounter Patient Instructions * Patient Instructions* Daxa Huston PA-C - 01/06/2020 15:45 EDT Rx Augmentin x 7 days. Use probiotic while on AB course. Continue lidocaine topically for comfort. OTC pain medication as needed. Encouraged warm compresses and alt water gargles as tolerated. Followup with dentist as planned this week for definitive treatment of the tooth. To ED if develops fever, sweats chills, worsening pain associated with facial swelling/redness. documented in this encounter Ordered Prescriptions Prescription Sig Dispense Quantity Refills Last Filled Start Date End Date amoxicillin-clavula hiro (AUGMENTIN) 875-125 mg per tablet Take 1 Tab by mouth 2 times daily for 7 days. 14 Tab 01/06/2020 01/13/2020 documented in this encounter Progress Notes * Leonarda Hernández RN - 01/06/2020 1545 EDT CC: Patient reports ongoing dental pain that worsened over the course of the last 24 hours. Has the patient contacted their PCP regarding this chief complaint? Unable to see the dentist until01/09/20. Covid Screening: Fever, chills, body aches: No Vomiting or diarrhea: No New or unusual cough, SOB: No Decrease/change in sense of taste or smell: No Sore throat or headache: No Have you been in close contact (less than 6 ft for more than 15 minutes) with suspected or confirmed person with Covid-19 in past 14 days: No Travel outside of [place] in last 14 days? No If yes, was it to a low risk location? Reference [facility] Travel Map to see if the location falls within a low risk area (<400 casesper million): https://accd.[place].gov/covid-19/restart/apypd-kyald-vugbgo Assessed patient's safety at home on 01/06/20. Patient reports that she feels safe at home. LEONARDA HERNÁNDEZ RN 01/06/20 15:49 * Betzaida Daxakavin Benavidez PA-C - 01/06/2020 5313 EDT Images from the original note were not included. [facility] Chief Complaint(s): Chief Complaint Patient presents with ??? Dental Pain Patient reports ongoing dental pain that worsened over the course of the last 24 hours. HPI: HPI Here today for tooth pain that started suddenly last night. Had off and on pain in this tooth for the last month or 2, but had not pain in the week leading up to this flare up. Pain is localized to the left last upper molar. Describes a sharp throbbing pain that radiates towards left ear and jaw line. Pain is constant. Has tried topical lidocaine for pain with minimal effect. Denies fever, sweatsor chills. Denies sore thorat associated. Has apt with dentist later this week. Reviewed problem list, allergies, medications ROS: ROS See HPI Objective: Vitals and nursing notes reviewed Examination: BP 110/82 Pulse 85 Temp 36.6 ??C (97.9 ??F) (Oral) Resp 18 SpO2 98% Physical Exam Constitutional: She appears well-developed and well-nourished. Non-toxic appearance. She does not appear ill. No distress. HENT: Head: Normocephalic. Head is without right periorbital erythema and without left periorbital erythema. Left Ear: Tympanic membrane, external ear and ear canal normal. Nose: Right sinus exhibits no maxillary sinus tenderness and no frontal sinus tenderness. Left sinus exhibits no maxillary sinus tenderness and no frontal sinus tenderness. Mouth/Throat: Oropharynx is clear and moist and mucous membranes are normal. No trismus in the jaw.Dental caries present. No dental abscesses or uvula swelling. Very mild left sided facial swelling. No erythema, fluctuance or warmth. Eyes: Conjunctivae are normal. Pulmonary/Chest: Effort normal. Lymphadenopathy: Head (left side): Submandibular adenopathy present. No preauricular and no posterior auricular adenopathy present. She has no cervical adenopathy. Skin: Skin is warm, dry and intact. No rash noted. No erythema. Assessment & Plan: 1. Dental decay Here today with dental pain. There is obvious dental decay of the tooth that is bothering her. Mildfacial swelling and LN swelling concerning for early infection. VS stable, no drainable abscess is visualized. Will start oral AB course while awaiting dental apt this week. New Prescriptions AMOXICILLIN-CLAVULANATE (AUGMENTIN) 875-125 MG PER TABLET Take 1 Tab by mouth 2 times daily for 7 days. Patient Instructions Rx Augmentin x 7 days. Use probiotic while on AB course. Continue lidocaine topically for comfort. OTC pain medication as needed. Encouraged warm compresses and alt water gargles as tolerated. Followup with dentist as planned this week for definitive treatment of the tooth. To ED if develops fever, sweats chills, worsening pain associated with facial swelling/redness. documented in this encounter Plan of Treatment Not on file documented as of this encounter Visit Diagnoses Diagnosis Dental decay- Primary Unspecified dental caries documented in this encounter Historical Medications * This list may reflect changes made after this encounter. methadone (DOLOPHINE) 10 mg tablet Take 13.5 Tablets by mouth daily. added in this encounter Care Teams Perpetual Inventory Clerk Relationship Specialty Start Date End Date Martha Saavedra FNP [address] [place], [place] [address] [place] [address] PCP - General 02/01/17 09/15/22 documented as of this encounter
--- OUTSIDE RECORDS SUMMARY | 2024-07-06 18:51 | XMS_ITS | Encounter Summary ---
Author Organization [facility] Address [address] [place] [address] Care Team Providers Care Pipe Layer Name Role Phone Martha Saavedra Noe Harjeet [facility] Primary Care Provi devon Encounter Details Date Type Department Care Team (Latest Contact Info) Description 01/08/2019 16:03 EDT - 01/08/2019 23:59 EDT Hospital Encounter [id number] [place] [address] Bobbi Mai, [employer] [address] [place] [address] Discharge Disposition: Home or Self Care Social History Tobacco Use Types Packs/Day Years Used Date Smoking Tobacco: Never Assessed Comments Unknown Sex and Gender Information Value Date Recorded Sex Assigned at Not on file Legal Sex Female 14:50 EDT Gender Identity Female 07/06/2021 12:52 EST Sexual Orientation Straight 02/11/2022 2: 46 EDT documented as of this encounter Discharge Diagnoses Diagnosis Z11.3 Encounter for screening for infections with a predominantly sexual mode of transmission-Z11.3[ICD-10-CM] Z11.8 Encounter for screening for other infectious and parasitic diseases-Z11.8[ICD-10-CM] documented in this encounter Discharge Disposition Disposition Code Departure Means Destination Home or Self Care documented in this encounter Plan of Treatment Not on file documented as of this encounter Visit Diagnoses Not on filedocumented in this encounter Care Teams Pipe Layer Relationship Specialty Start Date End Date Martha Saavedra FNP [address] [facility] [place] [address] PCP - General 02/01/17 09/15/22 documented as of this encounter
--- OUTSIDE RECORDS SUMMARY | 2024-07-06 18:51 | XMS_ITS | Encounter Summary ---
Author Organization [facility] Address [address] [place] [address] Care Team Providers Care Certified Veterinary Technician Name Role Phone Martha Saavedra Noe Harjeet [facility] Primary Care Provi devon Encounter Details Date Type Department Care Team (Late st Contact Info) Description 08/16/2021 15:20 EST Phlebotomy Only [facility] - Outpatient Phlebotomy Drawing [address] [place] [address] Lab, [facility] Phlebotomy care in first trimester; Supervision of high risk , antepartum; Substance use disorder; Chronic hepatitis C without hepatic coma (HCC-CMS) (HCC); Supervision of high risk in first trimester; 13 weeks gestation of ; Substance abuse (HCC-CMS) (HCC) Social History Tobacco Use Types Packs/Day Years [...] HCV RNA QUANT WITH REFLEX TO GENOTYPE Today 08/16/2021 15:28 EST care in first trimester LAB VENIPUNCTURE DRAW TEST Routine 08/16/2021 15:28 EST Supervision of high risk in first trimester 13 weeks gestation of HEPATITIS C AB W REFLEX TO HCV RNA BY PCR Routine 08/16/2021 15:28 EST care in first trimester RUBELLA IGG ANTIBODY Routine 08/16/2021 15:28 EST care in first trimester HEPATITIS B SURFACE ANTIBODY Add-On 08/16/2021 15:28 EST Chronic hepatitis C without hepatic coma (HCC-CMS) (HCC) Substance abuse (HCC-CMS) (HCC) Supervision of high risk in first trimester HEPATITIS B SURFACE ANTIGEN Routine 08/16/2021 15:28 EST care in first trimester COMPLETE BLOOD COUNT AND DIFFERENTIAL Routine 08/16/2021 15:28 EST care in first trimester TYPE AND SCREEN Routine 08/16/2021 15:28 EST care in first trimester VARICELLA IGG ANTIBODY Routine 15:28 EST care in first trimester HIV 1/2 ANTIGEN AND ANTIBODY, 4TH GENERATION Routine 08/16/2021 15:28 EST care in first trimester COMPREHENSIVE METABOLIC PANEL (CMP) Routine 08/16/2021 15:28 EST Supervision of high risk , antepartum Substance use disorder Chronic hepatitis C without hepatic coma (HCC-CMS) (HCC) documented in this encounter Results * HEPATITIS B SURFACE ANTIBODY (08/16/2021 15:28 EST) [facility] Hep B Surface Ab, Quantitative 0.0 See Note mIU/mL 08/17/2021 20:02 EST [facility] Comment: Clinical Interpretation of Immune [...] & BLO OD GAS ORDERABLES Final Result [facility] [address] [place] [address] * (ABNORMAL) HCV RNA QUANT WITH REFLEX TO GENOTYPE (08/16/2021 15:28 EST) [facility] HCV RNA Quantitative 97,000(H) Undetected IU/mL 08/18/2021 13:21 EST [facility] HCV RNA Qualitative Detected( A) Undetected 08/18/2021 13:21 EST [facility] Blood VENOUS BLOOD / Unknown Venipuncture / Unknown 08/16/2021 15:28 EST 08/16/2021 17:42 EST Narrative [facility] - 08/18/2021 13:21 EST New platform in use 01/04/2021 The quantification range of this assay is 15 IU/mL to 100,000,000 IU/mL. Testing was performed using the [place] HCV test ([employer] with the cheyenne 6800 System. us Dona Casper NP, CNM CHEMISTRY & BLO OD GAS ORDERABLES Final Result Performing Organization Address City/[facility]/ZIP Co de Phone Number [facility] [address] [place] [address] * LAB VENIPUNCTURE DRAW TEST (08/16/2021 15:28 EST) [facility] Hold [employer]. Non-invasive Screening and Carrier Collection Kit 08/16/2021 16:39 [facility] Blood VENOUS BLOOD / Unknown Venipuncture / Unknown 08/16/2021 15:28 EST 08/16/2021 16:23 EST us Dona Casper NP, CNM LAB INF O SERVICE AND SUPPORT & PHONE RESULT Final Result Performing Organization Address City/[facility]/ZIP Co de Phone Number [facility] [address] [place] [address] * (ABNORMAL) COMPREHENSIVE METABOLIC PANEL (CMP) (08/16/2021 15:28 EST) [facility] Sodium 140 136 - 145 mmol/L 08/16/2021 16:50 [facility] Potassium 4.8 3.5 - 5.0 mmol/L 08/16/2021 16:50 [facility] Chloride 102 96 - 110 mmol/L 08/16/2021 16:50 [facility] CO2 Total 27 22 - 32 mmol/L 08/16/2021 16:50 [facility] Glucose 72 70 - 100 mg/dL 08/16/2021 16:50 [facility] BUN 8(L) 10 - 26 mg/dL 08/16/2021 16:50 [facility] Creatinine 0.62 0.52 - 1.04 mg/dL 08/16/2021 16:50 [facility] eGFR 126 >60 mL/min/1.7 3m2 08/16/2021 16:50 [facility] Total Protein 7.6 6.3 - 8.2 g/dL 08/16/2021 16:50 [facility] Albumin 4.3 3.4 - 4.9 g/dL 08/16/2021 16:50 [facility] Alkaline Phosphatase 46 38 - 126 U/L 08/16/2021 16:50 [facility] AST 35 15 - 46 U/L 08/16/2021 16:50 [facility] ALT 32 <35 U/L 08/16/2021 16:50 [facility] Bilirubin, Total 0.3 <1.4 mg/dL 08/17/19 16:50 [facility] Calcium 9.4 8.5 - 10.5 mg/dL 08/16/2021 16:50 [facility] Albumin/Globulin Ratio 1.3 1.0 - 2.5 08/16/2021 16:50 [facility] Anion Gap 11 5 - 14 08/16/2021 16:50 [facility] Blood VENOUS BLOOD / Unknown Venipuncture / Unknown 08/16/2021 15:28 EST 08/16/2021 16:15 EST us Dona Luisa Casper PROCESSING INSPECTOR CNM CHEMISTRY & BLO OD GAS ORDERABLES Final Result Performing Organization Address City/State/[facility] Co de Phone Number [facility] [address] [place] [address] * (ABNORMAL) HEPATITIS C AB W REFLEX TO HCV RNA BY PCR (08/16/2021 15:28 EST) Hep C Antibody Reactive(A ) Negative 08/16/2021 17:42 EST [facility] Blood VENOUS BLOOD / Unknown Venipuncture / Unknown 08/16/2021 15:28 EST 08/16/2021 16:15 EST us Dona Luisa Wolfevort PROCESSING INSPECTOR CNM CHEMISTRY & BLO OD GAS ORDERABLES Final Result Performing Organization Address [facility]/ZIP Co de Phone Number [facility] [address] [place] [address] * RUBELLA IGG ANTIBODY (08/16/2021 15:28 EST) Rubella IgG Ab Positive See Note 08/16/2021 17:24 EST [facility] Comment:The presence of Rube lla IgG suggests immunity against Rubella. Blood VENOUS BLOOD / Unknown Venipuncture / Unknown 08/16/2021 15:28 EST 08/16/2021 16:15 EST us Dona Brettler Alvarezrt PROCESSING INSPECTOR CNM CHEMISTRY & BLO OD GAS ORDERABLES Final Result Performing Organization Address [facility] Co de Phone Number [facility] [address] [place] [address] * VARICELLA IGG ANTIBODY (08/16/2021 15:28 EST) Varicella IgG Ab Positive See Note 08/17/2021 22:20 EST [facility] Comment:Presence of detectab le Varicella Zoster virus IgG antibodies. Blood VENOUS BLOOD / Unknown Venipuncture / Unknown 08/16/2021 15:28 EST 08/16/2021 16:15 EST us Dona Luisa Casper PROCESSING INSPECTOR CNM IMMUNOLOGY AND SEROLOGY ORDERABLES Final Result Performing Organization Address [facility] Co de Phone Number [facility] [address] [place] [address] * HIV 1/2 ANTIGEN AND ANTIBODY, 4TH GENERATION (08/16/2021 15:28 EST) HIV 1 and 2 Antibody/p24 Antigen, 4th Generation Negative Negative 08/16/2021 17:40 EST [facility] Comment:If acute HIV-1 infec tion is suspected in a high risk patient, submit plasma specimen for HIV-1 RNA quantitation test. Blood VENOUS BLOOD / Unknown Venipuncture / Unknown 08/16/2021 15:28 EST 08/16/2021 16:15 EST us Dona Luisa DAVALOSM IMMUNOLOGY AND SEROLOGY ORDERABLES Final Result Performing Organization Address [facility] Co de Phone Number [facility] [address] [place] [address] * HEPATITIS B SURFACE ANTIGEN (08/16/2021 15:28 EST) Hep B Surface Ag Negative Negative 08/17/19 17:42 EST [facility] Comment: Expected values: Negative The results of this assay can be falsely lowered due to the consumption of Biotin. Blood VENOUS BLOOD / Unknown Venipuncture / Unknown 08/16/2021 15:28 EST 08/16/2021 16:15 EST us Dona Luisa Casper PROCESSING INSPECTOR ANOOPM CHEMISTRY & BLO OD GAS ORDERABLES Final Result Performing Organization Address [facility] [address] [place] [address] * TYPE AND SCREEN (08/16/2021 15:28 EST) Pathologist [facility] ABO A 08/16/2021 18:38 [facility] Rh Factor Positive 08/16/2021 18:38 [facility] Antibody Screen Negative 08/16/2021 18:38 [facility] Specimen Expires: 08/19/2021 @ 23:59 08/16/2021 18:38 [facility] Blood VENOUS BLOOD / Unknown Venipuncture / Unknown 08/16/2021 15:28 EST 08/16/2021 18:06 EST us Dona Luisa Casper NP [facility] TEST S Edited Result - Final Performing Organization Address [facility] BLOOD BANK [address] [place] [address] * COMPLETE BLOOD COUNT AND DIFFERENTIAL (08/16/2021 15:28 EST) WBC 4.62 4.00 - 12.40 K/cmm 08/16/2021 16:24 [facility] RBC 4.15 3.86 - 5.04 M/cmm 08/16/2021 16:24 [facility] Hemoglobin 11.8 11.6 - 15.2 gm/dL 08/16/2021 16:24 [facility] HCT 36.5 34.9 - 44.4 % 08/16/2021 16:24 [facility] MCV 88 81 - 98 fl 08/16/2021 16:24 [facility] MCH 28.4 26.7 - 33.3 pg 08/16/2021 16:24 [facility] MCHC 32.3 32.1 - 35.9 gm/dL 08/16/2021 16:24 [facility] RDW-CV 13.2 <14.7 % 08/16/2021 16:24 [facility] RDW-SD 42.5 <50.4 fl 08/16/2021 16:24 [facility] PLT 276 141 - 377 K/cmm 08/16/2021 16:24 [facility] MPV 10.0 9.5 - 12.7 fl 08/16/2021 16:24 [facility] % Neutrophils 57.3 % 08/16/2021 16:24 [facility] % Lymphocytes 33.1 % 08/16/2021 16:24 [facility] % Monocytes 8.4 % 08/16/2021 16:24 [facility] % Eosinophils 0.6 % 08/16/2021 16:24 [facility] % Basophils 0.4 % 08/16/2021 16:24 [facility] % Immature Grans 0.2 % 08/17/19 16:24 [facility] Absolute Neutrophils 2.64 2.20 - 8.85 K/cmm 08/16/2021 16:24 [facility] Absolute Lymphocytes 1.53 1.09 - 3.30 K/cmm 08/16/2021 16:24 [facility] Absolute Monocytes 0.39 0.10 - 0.80 K/cmm 08/16/2021 16:24 [facility] Absolute Eosinophils 0.03 0.03 - 0.61 K/cmm 08/16/2021 16:24 [facility] ABS Basophils 0.02 0.01 - 0.11 K/cmm 08/16/2021 16:24 [facility] Absolute Immature Grans 0.01 0.00 - 0.06 K/cmm 08/16/2021 16:24 [facility] Type of Differential: Auto 08/16/2021 16:24 [facility] Blood VENOUS BLOOD / Unknown Venipuncture / Unknown 08/16/2021 15:28 EST 08/16/2021 16:21 EST us Dona Luisa Casper PROCESSING INSPECTOR CNM PACKAGES & DNA PROBE ORDERABLES Final Result Performing Organization Address City/State/[facility] de Phone Number [facility] [address] [place] [address] documented in this encounter Visit Diagnoses Diagnosis care in first trimester Supervision of high risk , antepartum Substance use disorder Chronic hepatitis C without hepatic coma (HCC-CMS) Chronic hepatitis C without mention of hepatic coma Supervision of high risk in first trimester Unspecified high-risk 13 weeks gestation of state, incidental Substance abuse (HCC-CMS) Other, mixed, or unspecified nondependent drug abuse, unspecified documented in this encounter Care Teams Certified Veterinary Technician Relationship Specialty Start Date End Date Martha Saavedra FNP [address] [place] [address],[address] [place] [address] PCP - General 02/01/17 09/15/22 documented as of this encounter
--- OUTSIDE RECORDS SUMMARY | 2024-07-06 18:51 | XMS_ITS | Encounter Summary ---
Author Organization [facility] Address [address] [place] [address] Care Team Providers Care Marketing Performance Analyst Name Role Phone Martha Saavedra Noe Harjeet [facility] Primary Care Provi devon Reason for Visit * Reason Onset Date Comments Results 08/18/2021 Encounter Details Date Type Department Care Team (Late st Contact Info) Description 08/18/2021 Telephone [facility] OBGYN [address] [place], [place] [id number] Keila Hammonds, ALLEN Results Social History Tobacco Use Types Packs/Day Years [...] Telephone Encounter - Misti Baxter RN - 09/09/2021 1104 EDT Spoke with pt; reviewed results. Pt was also calling to check on [employer] results. Logged in to [employer]; Reviewed cfDNA and carrier screening results with pt. Pt verbalized understanding. Pt did want to know gender results; gender results were reviewed reviewed with pt. No questions at this time. Pt will call back with questions or concerns. Problem list updated. Forms to provider to review, then to front to be scanned in. * Telephone Encounter - Elisa Mayo MA - 09/09/2021 0841 EDT Patient states she got a new number and would like someone to call about results * Telephone Encounter - YanethmaryjaneDona APRN - 08/18/2021 1844 EST This is a MAT client who is at 13 weeks. She has a prior hx of Hep C with a viral load 11/2020 - and then didn't follow up. Her Hep C is positive and her viral load is 97K. I tried to call her, but no answer. Just to let her know that there is still a viral load. She knew that her Hep C was positive. I'm not sure that the genotype is needed at present - as it was never done in the past. However, we won't be treating her in - rather plan repeat labs PP and if still positive, then coordinate GI visit. Sometimes it can be helpful to get such clients connected with GI, so thatthis care is already in process and they are less likely to get lost to follow up. Interestingly, her Hep B antibody is negative - so a good idea to help her get vaccinated. Long story short - if you can let her know that her viral load is still present, that would be excellent. There isn't urgency for the genotype at this time! Thank-you. * Telephone Encounter - Keila Hammonds RN - 08/18/2021 1080 EST Received call from Arlyn Tran at [facility] Lab. Pt had Hepatitic C antibody testing 08/16/2021 ordered bylana Mota. Results: POS for Hep C. This reflexed back to RNA QUANT and then reflexed to genotype. Unfortunately there is not enough sample left to run the genotyping. Pt will need to be redrawn to complete the testing if desired. Readback done per protocol and is correct. Tel enc. Sent to LANA Parry high priority as E.V is not in tomorrow. HEP C genotype (Lab 915) will need to be ordered and pt drawn if genotyping is desired. documented in this encounter Plan of Treatment Not on file documented as of this encounter Visit Diagnoses Not on filedocumented in this encounter Care Teams Marketing Performance Analyst Relationship Specialty Start Date End Date Martha Saavedra FNP [address] [place] [address],[address] [place], [place] [address] PCP - General 02/01/17 09/15/22 documented as of this encounter
--- OUTSIDE RECORDS SUMMARY | 2024-07-06 18:51 | XMS_ITS | Encounter Summary ---
Author Organization [facility] Address [address] [place] [address] Care Team Providers Care Piercing Mill Operator Name Role Phone Martha Saavedra [facility] Primary Care Provi devno Encounter Details Date Type Department Care Team (Late st Contact Info) Description 06/30/2017 Results Only [facility] [phone] Bobbi Mai, LANA [address] [place] [address] Social History Tobacco Use Types Packs/Day Years [...] Procedure Name Priority Date/Time Associated Diagnosis Comments ZZVAGINITIS EXAM Routine 06/30/2017 16:0 0 EST documented in this encounter Results * VAGINITIS EXAM (06/30/2017 16:00 EST) Gram Smear Result No yeast seen. 07/01/2017 13:10 EST [facility] Gram Smear Result Smear consistent with BACTERIAL VAGINOSIS. 07/01/2017 13:10 EST [facility] Result No Trichomonas antigen detected. 07/01/2017 12:54 EST [facility] VAGINAL STRUCTURE / Unknown 06/30/2017 16:00 EST 07/01/2017 12:06 EST Comment:Specimen submitted o n a flocked swab. us Bobbi Mai SENIOR RELIABILITY ENGINEER MICROBIOLOGY - GENERAL ORDERA BLES Final Result [facility] [address] [place] [address] documented in this encounter Visit Diagnoses Not on filedocumented in this encounter Care Teams Piercing Mill Operator Relationship Specialty Start Date End Date Martha Saavedra FNP [address] [facility] [place] [address] PCP - General 02/01/17 09/15/22 documented as of this encounter
--- OUTSIDE RECORDS SUMMARY | 2024-07-06 18:51 | XMS_ITS | Encounter Summary ---
Author Organization [facility] Address [address] [place] [address] Care Team Providers Care Optical Manufacturing Technician Name Role Phone Martha Saavedra [facility] Primary Care Provi devon None, Provider Primary Care Provider Trevon Billingsley MD Primary Care Provider Eliza Rain MD Unavailable [phone] [facility] Unavailable Encounter Details Date Type Department Care Team (Late st Contact Info) Description 01/13/2020 Lab Requisition [facility] Pathology & Laboratory Medicine - [facility] [address] [place] [address] Alicia Vilchis [address] [place] [phone] Encounter for other general examination Social History Tobacco Use Types Packs/Day Years [...] Procedure Name Priority Date/Time Associated Diagnosis Comments PAP TEST Today 01/10/2020 15:25 EDT Encounter for other general examination documented in this encounter Results * PAP TEST (01/10/2020 15:25 EDT) Specimens A. Cervix and/or Endocervix , ThinPrep Imaging System with Manual Evaluation 01/25/2020 12:05 [facility] Specimen Adequacy Satisfactory for Evaluation - transformation zone component present Scant due to excessive blood 01/25/2020 12:05 [facility] General Categorization Negative for intraepithelial lesion or malignancy 01/25/2020 12:05 [facility] Descriptive Diagnosis Reactive cellular changes associated with inflammation present (includes repair). 01/25/2020 12:05 [facility] Educational Comments An additional slide was prepared and evaluated. 01/25/2020 12:05 [facility] Attestation By the signature below, the attending physician certifies that they have personally conducted a gross and/or microscopic examination of the described specimens and rendered or confirmed the above diagnosis. 01/25/2020 12:05 [facility] at 1205 Clinical History NONE 01/25/20 20 12:05 [facility] Scanned Images 01/25/2020 12:05 [facility] Papanicolaou smear specimen (specimen) CERVIX UTERI STRUCTURE / Unknown 01/10/2020 15:25 EDT 01/13/2020 13:40 EDT us Alicia Vilchis HOME CARE SPECIALIST PATHOLOGY ORDERABLES Final R esult [facility] [address] [place] [address] documented in this encounter Visit Diagnoses Diagnosis Encounter for other general examination documented in this encounter Additional Health Concerns Infection Onset Date Last Indicated Resolved Time R/O COVID-19 10/11/2021 10/11/2021 10/16/2021 22:1 7 EDT COVID-19 10/11/2021 10/11/2021 10/31/2021 22:1 5 EDT R/O COVID-19 11/13/2021 11/13/2021 11/13/2021 10:4 5 EDT documented as of this encounter Care Teams Optical Manufacturing Technician Relationship Specialty Start Date End Date Martha Saavedra FNP [address] [facility],[address] [place], [place] [address] PCP - General 02/01/17 09/15/22 None, Provider PCP - General 09/16/22 05/23/23 Trevon Boyd MD [address] [place] [address] [address] [place] [address] PCP - General Family Medicine - Primary Care 05/24/23 Eliza Rain MD [address] [place] [address] [address] [place] [address] Infectious Disease 05/24/23 Dona Casper NP CNJose [address] [place] [address], [address] [place] [address] Cover Stitch Machine Operator Midwifery 05/24/23 documented as of this encounter
--- OUTSIDE RECORDS SUMMARY | 2024-07-06 18:51 | XMS_ITS | Encounter Summary ---
Author Organization [facility] Address [address] [place] [address] Care Team Providers Care Curriculum Development Coordinator Name Role Phone Martha Saavedra Noe Harjeet [facility] Primary Care Provi devon Encounter Details Date Type Department Care Team (Latest Contact Info) Description 06/27/2017 8:55 EST - 06/27/2017 8:56 EST Hospital Encounter [id number] [place] [address] Bobbi Mai, ORGAN INSTALLER [address] [place] [address] Discharge Disposition: Home or Self Care Social [...] screening for other infectious and parasitic diseases-Z11.8[ICD-10-CM] R30.0 Dysuria-R30.0[ICD-10-CM] documented in this encounter Discharge Disposition Disposition Code Departure Means Destination Home or Self Care documented in this encounter Plan of Treatment Not on file documented as of this encounter Visit Diagnoses Not on filedocumented in this encounter Care Teams Curriculum Development Coordinator Relationship Specialty Start Date End Date Martha Saavedra FNP [address] [facility],[address] [place] [address] PCP - General 02/01/17 09/15/22 documented as of this encounter
--- OUTSIDE RECORDS SUMMARY | 2024-07-06 18:51 | XMS_ITS | Encounter Summary ---
Author Organization [facility] Address [address] [place] [address] Care Team Providers Care Distance Learning Coordinator Name Role Phone Martha Saavedra [facility] Primary Care Provi devon Reason for Visit * Reason Onset Date Comments Appointment Related 07/13/2021 Encounter Details Date Type Department Care Team (Late st Contact Info) Description 07/13/2021 Telephone [facility] [address] [place], [place] [address] Marlee Jurado RN Appointment Related Social History Tobacco Use Types [...] encounter Miscellaneous Notes * Telephone Encounter - Marlee Jurado, ALLEN - 07/13/2021 1320 EST Patient was no show for scheduled IVAP appointment today. Attempted to reach her, she did not answer, unable to LM, VM box full. documented in this encounter Plan of Treatment Not on file documented as of this encounter Visit Diagnoses Not on filedocumented in this encounter Care Teams Distance Learning Coordinator Relationship Specialty Start Date End Date Martha Saavedra FNP [address] [facility],[address] [place] [address] PCP - General 02/01/17 09/15/22 documented as of this encounter
[2024-07-08 12:02] LABS: Chlamydia Result Negative (Negative); GC Result Negative (Negative)
== END 2024-07-06 18:47 | disposition home or self-care (01) ==
PROVIDERS: Emergency Provider Nurse Practitioner Family; PCP Family Medicine
DX: R30.0 Dysuria (principal); N39.0 Urinary tract infection, site not specified; R68.84 Jaw pain; K04.7 Periapical abscess without sinus
CPT/HCPCS: 81025; 87077; 87491; 87591; 99283; 81003; 81015; 87086; 87186; 87480; 87510; 87660; 99284

== ENCOUNTER 2024-07-31 15:19 | Outpatient (REF) | payer MEDICAID, SELFPAY ==
--- NOTE | 2024-07-31 14:40 | PAPFT_PTH ---
PATIENT: Karin Dixon LOC: [facility] U#:[id number] AGE/SX: 29/F ROOM: RE07/31/[address]: Corrie Fisher NP : 1995 BED: DIS: 07/31/2024 SPEC #: [id number] RECD: 07/31/24 18:01 STATUS: SONIA MUNOZ #: [id number] QUIRINO: 07/31/24 14:[address]: Corrie Fisher NP DEPT: [facility] Cytology RECD BY: Lizzette Oliva ENTERED: 07/31/24 18:01 SP TYPE: PAPFT OTHR DR: Grace Hendricks Tissues: 1 - CX/ENDOCX FOR PAP SMEARS Procedures: PAP THIN PREP/[facility] Screening Comments: [id number] (CHLAMYDIA/GC)
[2024-08-01 12:11] LABS: Chlamydia Result Negative (Negative); GC Result Negative (Negative)
== END 2024-07-31 15:20 | disposition home or self-care (01) ==
LOC: LBN 15:19
PROVIDERS: PCP Family Medicine; Visit Provider Nurse Practitioner Women's Health
DX: N76.0 Acute vaginitis (principal)
CPT/HCPCS: 87491; 87591; 88142; 87480; 87510; 87660

== ENCOUNTER 2024-10-13 15:42 | Emergency (ER) | payer MEDICAID, SELFPAY ==
[2024-10-13 15:58] VITALS: BP 115/76; PULSE 133; RESP 16; TEMP 36.7; O2SAT 98
--- NOTE | 2024-10-13 16:28 | ED.GENADUL_ITS ---
Discharge Plan Disposition Patient Disposition: Home Discharge Details Clinical Impression: Early stage of Primary Care Provider: Grace Hendricks ED Provider: Elva Arguelles Home Meds and New Rx's Prescriptions: No Action gabapentin 300 mg capsule 300 mg PO TID Patient Comments: TAKE 1 CAPSULE BY MOUTH THREE TIMES DAILY Discharge Instructions Additional Instructions: Please call [facility] first thing in the morning to schedule an appointment for evaluation tomorrow. I have also placed an outpatient ultrasound order for you, call diagnostic imaging at 7 AM to schedule an appointment for same-day ultrasound. Return to emergency care if you develop new abdominal pain, vomiting, fever/chills, vaginal bleeding, episodes of passing out/dizziness, or if you are very worried you need to be rechecked again immediately Referrals: [facility] [Provider Group] Discharge Data Discharge Date/Time-TO BE ENTERED AT DEPARTURE: 10/13/24 18:02 HPI General Date/Time Provider Initiated Documentation: 10/13/24 15:45 . HPI Narrative: Mitesh is a 29 year old female who presents to the emergency department today for evaluation of abdominal discomfort, brownish vaginal discharge, and positive test. She reports that she has had scant brownish vaginal discharge for the last week, accompanied by a feeling like she has a muscle strain in her lower abdomen and some discomfort in her epigastrium. She says this is consistent with previous pregnancies. She reports last menstrual cycle was last week in August, but says it was cut out worker than usual, so is not sure when her last normal menstrual cycle was calculate gestational age. Denies fever/chills, dizziness, recent illness, chest pain, shortness of breath, nausea/vomiting, change in bowel or bladder function. She is monogamous with a male partner, has not been using control. Says that she has also had intermittent swelling to her left foot, says looks better today than usual, says this has been ongoing for a while now and has been told she is not sure why it happens. Past medical history is significant for current crack and heroin use, last used this morning. Has had 2 previous pregnancies to term (37 and 38 weeks, uncomplicated vaginal deliveries; she is RH positive); she is interested in rehab because she has had issues with pregnancies in the past when she has been using. Last used methadone 8 months ago. Physical exam reassuring. Patient is alert and oriented, no acute distress. Abdomen is soft, nondistended, mildly tender to palpation in the lower abdomen, no rigidity or guarding. Normoactive bowel sounds piecemealed membranes. Normal heart sounds, tachycardia noted (she does admit that she feels very anxious and has hypochondria). Easy work of breathing, lung sounds clear bilaterally. Mild nonpitting edema to left ankle and dorsum of foot. Brisk cap refill and distal pulses intact. D/dx includes but is not limited to: normal early , menstrual cycle, unusual vaginal discharge, gastritis. No red flags concerning for ectopic requiring emergent diagnostic imaging. I independently interpreted the following tests: Urine hCG positive. CBC, CMP, lipase all reassuring. hCG quantitative 6477. UA not consistent with UTI As ultrasound is not available tonight, outpatient ultrasound ordered for a.m. Discussed case with Dr. Hastings, [facility]OURCE [facility] at [facility]. She recommends outpatient ultrasound and follow-up tomorrow with [facility] for evaluation. She did advise that [facility] [place] has inpatient detox facility; discussed this option with Karin and she is not interested in pursuing that at this time, but would be interested in the morning after she gets some things done at home. History and presentation consistent with early , outpatient ultrasound ordered to confirm intrauterine . Reviewed discharge instructions with patient, including symptomatic management and red flags indicating need for return to emergency care/close return precauations. Patient voices agreement with plan of care. 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: 3 Review of Systems Narrative: See HPI Exam Const General: cooperative, healthy appearing, comfortable, no acute distress, well developed and well groomed Nutritional Appearance: average body habitus and well nourished Orientation: alert and oriented x3 Resp Effort & Inspection: normal respiratory effort and able to speak in complete sentences Auscultation: clear to auscultation bilaterally Cardio Rate: regular rate Rhythm: regular rhythm GI Inspection: normal to inspection, no abdominal wall ecchymosis and non-distended Palpation: soft, not firm, no guarding, not rigid and tender in the LLQ, in the RLQ and suprapubicly Course Vital Signs Vital signs: Vital Signs Temperature 36.7 C 10/13/24 15:58 Pulse 133 H 10/13/24 15:58 Respiratory Rate 16 10/13/24 15:58 Blood Pressure 115/76 10/13/24 15:58 Pulse Oximetry 98 10/13/24 15:58 Temperature 36.7 C 10/13/24 15:58 Temperature Source Oral 10/13/24 15:58 Pulse 133 H 10/13/24 15:58 Respiratory Rate 16 10/13/24 15:58 Blood Pressure 115/76 10/13/24 15:58 Pulse Oximetry 98 10/13/24 15:58 Pain Level 5 10/13/24 15:58 Lab/Test Results Lab/Test Results: POC- Test(urine) Positive Medical Decision Making Quality:SDOH Health Related Social Needs: No Data to Display PFSH All Active Problems (Updated 10/13/24 @ 17:56 by Elva Melendez) Early stage of (Acute) Irregular menses (Acute 06/25/15) Medical History (Updated 10/13/24 @ 17:56 by Elva Melendez) Vaginitis 2016 Trich. Depression Rx with Wellbutrin and Hydroxzine TID PRN. Anxiety Homeless family after of renetta was living with her mother and in hotel with BF. Does not have custody of daughter secondary to homeless issues. 04/25/17 is moving in with and his mother. Family History Mother Substance abuse recovered Mental disorder Father Alcohol abuse Sister Mental disorder Sister No problems noted. Brother No problems noted. Brother No problems noted. Social History (Updated 07/31/24 @ 15:31 by Corrie Fishre NP) Smoking/Tobacco Use Status: Never Smoking risk assessment performed?: Yes Alcohol Intake: never Drug use: Daily Substance use type: crack/cocaine, heroin and other Details: smokes fentnyl, no longer uses IV Details: planning on going to rehab on monday of this week. Last use of drugs was this morning Household members: significant other Number of Children: 2 Sexually active: Yes Do you think of yourself as: straight/heterosexual Current gender identity: female Do you feel safe at home: Yes Do you feel safe in your relationship?: Yes Female Reproductive History Menstrual control method: none and condoms History History 2 Para 2 Hx # Term Pregnancies Multiple births Hx # Pregnancies Ectopic pregnancies AB induced Hx Number of Living Children AB spontaneous Past Pregnancies Del. Date GA/Weeks # Preg Succ Route Wgt Sex Labor Lgth Anesth esia Location Prov Complic 06/06/16 No Yes vaginal Female 03/03/22 No Yes vaginal Male Delivery Date: 06/06/16 Last Updated by: Corrie Fisher NP [facility] Delivery Date: 03/03/22 Last Updated by: Corrie Fisher NP [facility]
[2024-10-13 16:39] LABS: Bilirubin Small (Negative); Blood Negative (Negative); Clarity Clear (Clear); Glucose Negative (Negative); Ketones Trace mg/dL (Negative); Leukocyte Esterase Negative (Negative); Nitrite Negative (Negative); Specific Gravity 1.025 (1.005-1.025); Urobilinogen 0.2 mg/dL (Up to 0.2)
[2024-10-13 16:46] LABS: Abs Immature Grans 0.01 10^3/uL (0.0-0.06); Absolute Basophil Count 0.02 10^3/uL (0.0-0.2); Absolute Eosinophil Count 0.11 10^3/uL (0.0-0.7); Absolute Lymphocyte Count 2.04 10^3/uL (1.2-3.4); Basophils % 0.3 %; Eosinophils % 1.9 %; HCT 38.3 % (36.0-46.0); HGB 12.7 g/dL (11.2-15.7); Immature Grans % 0.2 %; Lymphocytes % 34.7 %; MCHC 33.2 % (32.0-36.0); MCV 91 fL (80-95); MPV 9.1 fL (8.0-11.0); Monocytes % 6.8 %; Neutrophils % 56.1 %; Platelet Count 272 10^3/uL (130-400); RBC 4.23 10^6/uL (3.93-5.22); RDW 12.2 % (11.7-14.6); RDW-SD 40.4 fL; WBC 5.88 10^3/uL (4.4-10.8)
[2024-10-13 16:56] VITALS: PULSE 74; O2SAT 97
[2024-10-13 17:00] LABS: Lipase 17 U/L (<78)
[2024-10-13 17:26] LABS: ALT 107 U/L (14-59); AST 70 U/L (15-37); Albumin 3.6 g/dL (3.4-5.0); Alkaline Phosphatase 46 U/L (46-116); Anion Gap 6.1 mmol/L (3-11); BUN 10 mg/dL (7-18); Bilirubin, Total 0.3 mg/dL (0.2-1.0); CO2 29.9 mmol/L (21.0-32.0); CREATININE 0.8 mg/dL (0.55-1.02); Chloride 102 mmol/L (98-107); Estimated GFR 102.86 (mL/min/1.73m2); Glucose 122 mg/dL (74-106); Potassium 3.7 mmol/L (3.5-5.1); Sodium 138 mmol/L (136-145); Total Protein 7.4 g/dL (6.4-8.2)
[2024-10-13 17:36] LABS: HCG Quant, Pregnancy 6477 mIU/mL (1-3)
== END 2024-10-13 18:02 | disposition home or self-care (01) ==
PROVIDERS: Emergency Provider Nurse Practitioner Family; PCP Family Medicine
DX: O26.891 Other specified pregnancy related conditions, first trimester (principal); R10.30 Lower abdominal pain, unspecified; Z3A.01 Less than 8 weeks gestation of pregnancy
CPT/HCPCS: 36415; 80053; 81025; 83690; 99283; 81003; 84702; 85025

== ENCOUNTER 2024-10-16 00:53 | Outpatient (CLI) | payer MEDICAID, SELFPAY ==
--- NOTE | 2024-10-16 | DI.US_ITS ---
Exam(s) US OB 1ST TRIMESTER EXAM: US OB 1ST TRIMESTER CLINICAL HISTORY: EARLY . COMPARISON: No exams were available for comparison TECHNIQUE: Transabdominal Transvaginal first trimester obstetrical ultrasound performed. FINDINGS: Sonographic images demonstrate a single intrauterine sac which has a normal shape. There is a small a mount of subchorionic hemorrhage which was measured at 20 by 6 x 8 millimeters. Sonographically assessed gestational age based upon mean sac diameter is 5 weeks 2 days. No darlene e or cardiac activity is visible. Estimated date of delivery based on this ultrasound is: 16 June 2025 Estimated date of delivery based upon LMP: Unknown. No free fluid identified. Both ovaries appear sonographically normal. Pelvic Measurments Uterus: 10.9 x 5.0 x 5.1 cm Rt Ovary: 2.2 x 1.5 x 2.3 cm Lt Ovary: 3.6 x 2.5 x 2.8 cm IMPRESSION: No pole is visible. The mean sac diameter corresponds to 5 weeks 2 days. There is a small amount of subchorionic hemorrhage. DATA REPOSITORY:
== END 2024-10-16 01:13 ==
PROVIDERS: PCP Family Medicine; Visit Provider Nurse Practitioner Family
DX: Z34.91 Encounter for supervision of normal pregnancy, unspecified, first trimester (principal); Z3A.01 Less than 8 weeks gestation of pregnancy
CPT/HCPCS: 76801